=== PATIENT | male | born 1975 | race Caucasian/White ===

== ENCOUNTER 2017-07-29 18:40 | Inpatient (IN) | payer MEDICAID, SELFPAY ==
[2017-07-29 18:41] VITALS: BP 149/91; PULSE 86; RESP 16; TEMP 37.2; O2SAT 99; BMI 22.8
[2017-07-29 21:19] VITALS: BP 133/78; PULSE 92; RESP 20; O2SAT 97
--- NOTE | 2017-07-29 22:07 | ED.VISSUMM ---
- ER Visit Summary Date of Service: 07/29/17 Chief Complaint: Presents for detox from alcohol History of Present Illness: The patient is a 41 M who has history of alcohol use for 20 years. He drinks between 18-24 cans of beer a day. He was having shakes and had several beers prior to presentation. He denies fever, chills night sweats. He denies any ocular, visual or auditory symptoms. He denies chest pain, palpitations, shortness of breath, dyspnea on exertion. He denies hematemesis, melena hematochezia. He denies dysuria, frequency, urgency or hematuria. Denies any skin lesions. He denies bruising easily. Please read written note for complete detail Physical Examination: Blood pressure 149/91, temperature 98, heart rate 86, respiratory rate 16 and pulse ox 96%. Head is atraumatic normocephalic. Pupils are equal round reactive. Extraocular muscles are intact. TMs are pearly white with landmarks noted. Nares patent with no drainage. Posterior pharynx without erythema or exudate. Uvula is midline. There is no dysphonia or dysphasia. Trachea is midline. There is no stridor with auscultation of the neck. Heart is regular without murmur, gallop or rub. S1 and S2 are normal. Lungs are clear to auscultation with good movement of air bilaterally. Abdomen is soft and nontender. There is no guarding or peritoneal findings. There is no palpable pulsatile mass. There is no abdominal bruit. Carreno sign is negative. Negative Rovsing sign. There is no evidence of inguinal or umbilical hernia. Patient is alert and oriented ?3. Motor is 5 over 5. Sensory is intact. DTRs are symmetric with no clonus or Babinski sign. Cranial 2 through 12 are intact. Cerebellar testing is normal. Test Results: Initially no tests were ordered. Since patient is going through withdrawal require admission appropriate blood work was ordered and results will be followed by Dr. Derek Godfrey. Emergency Department Course and Treatment: Patient was told he does not meet criteria for admission. He was given option of going home and return if he has symptoms or stay and be reevaluated. He was reevaluated 2 and half hours later. He is tachycardic diaphoretic hyperreflexic. Blood work was obtained for admission and he was given 50 mg of Librium p.o. Treatment Plan: Admit [facility] for detox Disposition: Admit for alcohol withdrawal Impression: Alcohol withdrawal This note was generated with [employer] dictation software. It may contain incorrect words, spelling, and punctuation that were not noted in review of the chart prior to signing ED Disposition - Plan for ED Patient: Chief Complaint: Subst Abuse Referrals: Care Physician,No Primary [Primary Care Provider] -
[2017-07-29] MEDS: chlordiazePOXIDE 25 MG Capsule 50 MG PO (22:21)
[2017-07-29 22:32] LABS: Basophil# 0.01 X10^3/uL; Basophil% 0.2 % (0-1); Eosinophil# 0.05 X10^3/uL; Hemoglobin 14.7 g/dl (13.0-16.5); Lymphocyte % 27.5 % (19-41); Mean Corpuscular Volume 97.2 fL (80-94); Mean Platelet Vol. 9.3 fl (6.2-12.0); Monocyte# 0.61 X10^3/uL; Neutrophil # 3.02 X10^3/uL (2.7-7.7); Neutrophil % 59.1 % (47-70); POSITIVE COUNT NO; POSITIVE DIFFERENTIAL NO; POSITIVE MORPHOLOGY NO; Platelet Count 170 K/mm3 (150-450); RBC Distribution Width SD 46.4 fl (35.1-43.9); Red Blood Count 4.32 M/mm3 (4.6-6.2); White Blood Count 5.1 K/mm3 (4.4-11.0)
[2017-07-29] MEDS: LORazepam 2 MG/ML Syringe 1 MG IV (22:33)
[2017-07-29 22:36] LABS: Prothrombin Time (Protime)PT. 13.1 SECONDS (11.7-14.9)
[2017-07-29 22:47] VITALS: BP 114/84; PULSE 84; RESP 20; O2SAT 98
--- NOTE | 2017-07-29 22:52 | HP.PCM_ITS ---
Problem List (1) Alcohol abuse Status: Acute (2) Alcohol withdrawal Status: Acute (3) Tobacco abuse Status: Chronic History of Present Illness Date of Admission: 07/29/17 Chief Complaint: alcohol withdrawal The patient is a 41 year old male with a 15-20 year history of drinking 20-30 beers daily. He states he is tired of it and wants to quit. He states he has counseling in [place] set up for him once he gets through detoxification. [facility] was aware of his arrival to our facility. His last beer was at 6:00 pm. His last attempt at cessation was unsuccessful after a week or so. No chest pain or shortness of breath. No other complaints. Past Medical History Past Medical History (Chronic Problems): Chronic Problems Tobacco abuse (Chronic) Allergies No Known Allergies Allergy (Verified 07/29/17 18:41) Home Medications: Ambulatory Orders Medication Instructions Recorded NK [NK] 07/29/17 Smoking Status: Current every day smoker - *Family History Maternal History Items: No pertinent history Review of Systems Constitutional: Denies: Chills, Fever, Weight Change HEENT: Denies: Head Aches, Sinus Congestion, Sinus Drainage Cardiovascular: Denies: Chest Pain, Palpitations Respiratory: Denies: Cough, Shortness of breath at rest, Sputum production Gastrointestinal: Denies: Abdominal Pain, Nausea, Vomiting Genitourinary: Denies: Dysuria Musculoskeletal: Denies: Joint Pain, Joint Tenderness Skin: Denies: Rash, Wounds Neurological: Denies: Numbness, Tingling, Focal weakness Psychiatric: Reports: Anxiety. Denies: Depression, Homicidal Ideations, Suicidal Ideations Hematologic/ Lymphatic: Denies: Easy Bruising, Easy Bleeding VTE Information - Inpt Only VTE Present on Admission: No VTE Mechan Device Prophylaxis: SCD's VTE Pharm Prophylaxis ordered?: No Patient Problems: Active and Suspected Problems Alcohol abuse (Acute) Alcohol withdrawal (Acute) - Physical Exam General: Alert, Oriented x3, Cooperative HEENT: Atraumatic, PERRLA, Normocephalic Neck: Supple, No JVD, Negative Carotid Bruits Lungs: Clear to auscultation, Normal air movement, No rhonchi, No wheeze, No rales Cardiovascular: Regular rate, Normal S1, Normal S2, No murmurs, Tachycardic Abdomen: Bowel Sounds Present, Soft, Non Tender Extremities: No edema, Capillary Refill Less than 3 Seconds Skin: No rashes, No breakdown Musculoskeletal: No Tenderness to Palpation of Joints or Extremities Neurological: Neuro grossly intact Psych/Mental Status: Anxious, Restless Vital Signs Temp Pulse Resp BP Pulse Ox 98.9 F 92 20 H 133/78 H 97 07/29/17 18:41 07/29/17 21:19 07/29/17 21:19 07/29/17 21:19 07/29/17 21:19 Oxygen Delivery Method Room Air Weight: 150 lb Body Mass Index (BMI) 22.8 Laboratory Tests Past 24 Hrs 07/29/17 07/29/17 07/29/17 22:15 22:15 22:15 WBC 5.1 RBC 4.32 L Hgb 14.7 Hct 42.0 MCV 97.2 H MCH 34.0 H MCHC 35.0 RDW 13.0 RDW Differential 46.4 H Plt Count 170 MPV 9.3 Immature Gran % (Auto) 0.200 Neut % (Auto) 59.1 Lymph % (Auto) 27.5 Winkler % (Auto) 12.0 H Eos % (Auto) 1.0 Baso % (Auto) 0.2 Absolute Neuts (auto) 3.0 Absolute Lymphs (auto) 1.40 Total Counted Not Reportable PT 13.1 INR 1.0 Sodium Pending Potassium Pending Chloride Pending Carbon Dioxide Pending Anion Gap Pending BUN Pending Creatinine Pending Est GFR (MDRD) Af Amer Pending Est GFR (MDRD) Non-Af Pending BUN/Creatinine Ratio Pending Glucose Pending Calcium Pending Total Bilirubin Pending AST Pending ALT Pending Alkaline Phosphatase Pending Total Protein Pending Albumin Pending Assessment/Plan Active and Suspected Problems Alcohol abuse (Acute) Alcohol withdrawal (Acute) Plan - admit and consult to [facility] - add CIWA protocol - scds for DVT prophylaxis - add nicoderm patch for tobacco cessation - >15 minutes discussing his motivation for success with alcohol cessation. Code Visit Inpatient E&M: 12020 Init Hosp L2
[2017-07-29 22:55] LABS: AST(SGOT) 39 U/L (15-37); Alanine Aminotransfer ALT/SGPT 26 U/L (16-61); Albumin, Serum 3.9 g/dL (3.2-5.0); Alkaline Phosphatase 56 U/L (45-117); Anion Gap 13 (5-15); BUN 6 mg/dL (7-18); BUN/Creat Ratio 7.3 RATIO (10-20); Calcium,Total 8.8 mg/dL (8.5-10.1); Chloride 104 mmol/L (98-107); Creatinine, Serum 0.83 mg/dL (0.70-1.30); EST Glomerular Filtration Rate 110 mL/min (>60); Est Glom Filt Rate - Afr Amer 133 mL/min (>60); Estimated Creatinine Clearance 114.99 ml/min; Globulin 3.9 g/dL (2.2-4.2); Glucose 101 mg/dL (74-106); Potassium 3.7 mmol/L (3.5-5.1); Protein, Total 7.8 g/dL (6.4-8.2); Sodium Level 142 mmol/L (136-145)
[2017-07-29 23:08] VITALS: BP 109/73; PULSE 87; RESP 18; O2SAT 94
[2017-07-29 23:24] VITALS: BP 129/87; PULSE 76; RESP 20; TEMP 36.7; O2SAT 97
[2017-07-29 23:29] VITALS: BMI 22.8
[2017-07-29 23:33] VITALS: BMI 22.8
[2017-07-29] MEDS: QUEtiapine 25 MG Tablet PO (23:46)
[2017-07-30] VITALS (10 sets, daily range): BP systolic 113–123; BP diastolic 71–81; PULSE 51–82; RESP 16–18; TEMP 36.3–36.8; O2SAT 94–98
[2017-07-30] MEDS: cloNIDine HCl 0.1 MG Tablet PO ×5 (02:15→18:00)
[2017-07-30] MEDS: Folic Acid 1 MG Tablet PO (09:06)
[2017-07-30] MEDS: LORazepam 1 MG Tablet 2 MG PO (09:09)
[2017-07-30] MEDS: Thiamine Hydrochloride 100 MG Tablet PO ×2 (09:11→18:00)
[2017-07-30] MEDS: QUEtiapine 25 MG Tablet PO ×2 (10:41→21:54)
[2017-07-30] MEDS: chlordiazePOXIDE 25 MG Capsule 50 MG PO ×2 (12:17→18:02)
--- NOTE | 2017-07-30 15:29 | PCM.PROGNOTE ---
Patient Problems: Active and Suspected Problems Alcohol abuse (Acute) Alcohol withdrawal (Acute) Subjective: Patient was seen and examined today, I placed him on a tapering Librium dose today, he states he feels better today. - Physical Exam General: Alert, Oriented x3, Cooperative, No apparent distress, Well developed, Well nourished HEENT: Atraumatic, PERRLA, EOMI, Normocephalic Oral: Moist Mucosa Neck: Supple, No JVD, Negative Carotid Bruits, Trachea Midline, Thyroid Normal Size and Texture Lungs: Clear to auscultation, Normal air movement, No rhonchi, No wheeze, No rales Cardiovascular: Regular rate, Regular Rhythm, Normal S1, Normal S2, No murmurs, No Ectopic Activity, PMI Normal, No rub noted, No Gallop Abdomen: Bowel Sounds Present, Soft, Non Tender, Non-Distended, No hernias noted Extremities: No clubbing, No cyanosis, No edema, Capillary Refill Less than 3 Seconds Skin: No rashes, No breakdown Musculoskeletal: No Tenderness to Palpation of Joints or Extremities, No Muscle Wasting Neurological: Cranial nerves II-XII grossly intact, Neuro grossly intact, Muscle tone normal, Sensory exam intact to light touch and pain Psych/Mental Status: Normal Affect, Appropriate, Alert and oriented to time, place, person, mood and affect Vital Signs Temp Pulse Resp BP Pulse Ox 97.3 F L 76 18 113/71 96 07/30/17 14:00 07/30/17 14:00 07/30/17 14:00 07/30/17 14:00 07/30/17 13:58 Oxygen Delivery Method Room Air Weight: 68 kg Body Mass Index (BMI) 22.8 Intake and Output for Last 24 Hours 07/28/17 07/29/17 07/30/17 23:59 23:59 23:59 Intake Total 880 / 880 Balance 880 / 880 Medical Necessity - Tobacco Use Smoking Status: Current every day smoker Assessment/Plan Active and Suspected Problems Alcohol abuse (Acute) Alcohol withdrawal (Acute) #1 acute alcohol withdrawal-continue present meds #2 alcoholism Code Visit Inpatient E&M: 89235 Subs Hosp L2
--- NOTE | 2017-07-30 16:13 | CHAPLAIN ---
Type of Pastoral Visit _x__ Initial Visit ___ Follow-up Visit ___ On-call Visit ___ General Patient Visit ___ Spiritual Assessment ___ Family Conference ___ Bereavement ___ Rapid Response ___ Code Blue ___ Other (describe below) Pastoral Care Referral From ___ Patient ___ Family ___ Nurse ___ Physician ___ Banking Paralegal ___ Cosmetics Demonstrator _x__ Other (describe below) Sacrament/Intervention ___ Active listening ___ Anointing ___ Anglican ___ Bereavement ___ Communion ___ Martha exploration ___ ___ Life review ___ Prayer ___ Reconciliation ___ Sacrament of Sick _x__ Supportive presence ___ Wedding ___ Other (describe below) Pastoral Comments brief introduction to patient for spiritual support services; pt would prefer a return visit at another time; pt said that he has affiliation with a local voodoo through his mother
[2017-07-30] MEDS: Dicyclomine 10 MG Capsule 20 MG PO (18:02)
[2017-07-31] VITALS (10 sets, daily range): BP systolic 104–127; BP diastolic 62–82; PULSE 48–66; RESP 16–18; TEMP 36.4–36.8; O2SAT 95–99
[2017-07-31] MEDS: chlordiazePOXIDE 25 MG Capsule 50 MG PO ×4 (01:09→22:31)
[2017-07-31] MEDS: Folic Acid 1 MG Tablet PO (08:28)
[2017-07-31] MEDS: Thiamine Hydrochloride 100 MG Tablet PO ×2 (08:28→17:13)
--- NOTE | 2017-07-31 15:49 | CHAPLAIN ---
Type of Pastoral Visit ___ Initial Visit _x__ Follow-up Visit ___ On-call Visit ___ General Patient Visit ___ Spiritual Assessment ___ Family Conference ___ Bereavement ___ Rapid Response ___ Code Blue ___ Other (describe below) Pastoral Care Referral From _x__ Patient ___ Family ___ Nurse ___ Physician ___ Crane Helper ___ Pathology Collector ___ Other (describe below) Sacrament/Intervention _x__ Active listening ___ Anointing ___ Episcopal ___ Bereavement ___ Communion _x__ Martha exploration ___ _x__ Life review _x__ Prayer ___ Reconciliation ___ Sacrament of Sick _x__ Supportive presence ___ Wedding ___ Other (describe below) Pastoral Comments patient was anticipating this return visit from rough rib grader and began to talk about his life; pt says that he is having difficulty staying occupied in a lonely closed in room; pt eager to have a visitor; pt admits anxiety at going out again to his environment because alcohol is everywhere and I am used to drinking 30 beers a day; pt says his best source of help is keeping busy and working; 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
--- NOTE | 2017-07-31 16:55 | PCM.PROGNOTE ---
Patient Problems: Active and Suspected Problems Alcohol abuse (Acute) Alcohol withdrawal (Acute) Subjective: Patient seen and examined today, he has no complaints of any tremors or severe anxiety today. - Physical Exam General: Alert, Oriented x3, Cooperative, No apparent distress HEENT: Atraumatic, PERRLA, EOMI, Normocephalic Oral: Moist Mucosa Neck: Supple, No JVD, Trachea Midline, Thyroid Normal Size and Texture Lungs: Clear to auscultation, Normal air movement, No rhonchi, No wheeze, No rales Cardiovascular: Regular rate, Regular Rhythm, Normal S1, Normal S2, No murmurs, No Ectopic Activity, PMI Normal, No rub noted, No Gallop Abdomen: Bowel Sounds Present, Soft, Non Tender, Non-Distended Extremities: No clubbing, No cyanosis, No edema, Capillary Refill Less than 3 Seconds Skin: No rashes, No breakdown Musculoskeletal: No Tenderness to Palpation of Joints or Extremities Neurological: Cranial nerves II-XII grossly intact, Neuro grossly intact, Sensory exam intact to light touch and pain, Coordination normal Psych/Mental Status: Normal Affect, Appropriate, Alert and oriented to time, place, person, mood and affect Vital Signs Temp Pulse Resp BP Pulse Ox 98.2 F 62 16 112/69 96 07/31/17 13:58 07/31/17 13:58 07/31/17 13:58 07/31/17 13:58 07/31/17 13:58 Oxygen Delivery Method Room Air Weight: 68 kg Body Mass Index (BMI) 22.8 Intake and Output for Last 24 Hours 07/29/17 07/30/17 07/31/17 23:59 23:59 23:59 Intake Total 1220 / 1220 360 / 360 Balance 1220 / 1220 360 / 360 Medical Necessity - Tobacco Use Smoking Status: Current every day smoker Assessment/Plan Active and Suspected Problems Alcohol abuse (Acute) Alcohol withdrawal (Acute) #1 acute alcohol withdrawal-continue present meds, patient remains medically stable #2 alcoholism Code Visit Inpatient E&M: 03334 Subs Hosp L2
[2017-07-31] MEDS: cloNIDine HCl 0.1 MG Tablet PO (22:31)
[2017-07-31] MEDS: QUEtiapine 25 MG Tablet PO (22:32)
[2017-08-01 02:00] VITALS: BP 115/78; PULSE 54; RESP 18; TEMP 36.6; O2SAT 99
[2017-08-01 06:00] VITALS: BP 114/68; PULSE 57; RESP 16; TEMP 36.5; O2SAT 99
[2017-08-01] MEDS: chlordiazePOXIDE 25 MG Capsule 50 MG PO (06:34)
[2017-08-01 08:26] VITALS: BP 111/75; PULSE 59; RESP 16; TEMP 36.7; O2SAT 100
[2017-08-01 08:30] VITALS: BP 111/75; PULSE 60; RESP 16; TEMP 36.7
[2017-08-01] MEDS: Folic Acid 1 MG Tablet PO (08:38)
[2017-08-01] MEDS: Thiamine Hydrochloride 100 MG Tablet PO (08:38)
--- NOTE | 2017-08-01 08:53 | PCM.DC ---
- Discharge Diagnoses Current Active Problems: Current Active and Chronic Problems Alcohol abuse (Acute) Alcohol withdrawal (Acute) Tobacco abuse (Chronic) You will use the following diet at home:: No restrictions Your food should be the consistency of: Regular Your liquids should be the consistency of: Regular/Thin Discharge Activity: Return to Normal Activity Weight Bearing Status: Full weight bearing Allergies/Adverse Reactions: Allergies No Known Allergies Allergy (Verified 07/29/17 18:41) Medications to take at Discharge NK [NK] 07/29/17 Primary Care Physician: Care Physician,No Primary [Primary Care Provider] -
--- NOTE | 2017-08-01 16:02 | PCM.DC.SUM ---
Discharge Date and Diagnosis Date of Admission: 07/29/17 Date of Discharge: 08/01/17 - Primary Discharge Diagnosis #1 acute alcohol withdrawal #2 alcoholism - Secondary Discharge Diagnosis Chronic Problems Tobacco abuse (Chronic) Hospital Course and Treatment Operations: None Procedures: None Summary of Care Provided: The patient is a 41 year old M who was seen in the emergency room at [facility] with a chief complaint of wishing to detox from alcohol. Patient had an alcohol use history for 20 years between 18-24 cans of beer per day. Physical examination revealed him to be anxious and tremorous, no admission labs were drawn in the emergency room. Medical stabilization program at [facility] was contacted for approval for admission to the program, this was granted and the patient was admitted into the medical stabilization program at [facility] on [facility]. Orders were entered using the medical stabilization order set, patient had no major complications during his hospitalization. On 08/01/17, patient was seen and examined and felt to be in stable condition for discharge home Discharge Activity: Return to Normal Activity Weight Bearing Status: Full weight bearing Home Medications: Medications to take at Discharge NK [NK] 07/29/17 Primary Care Physician: Care Physician,No Primary [Primary Care Provider] - Disposition: Home Minutes spent on discharge:: 32 Patient Condition:: Stable Medical Necessity - Tobacco Use Smoking Status: Current every day smoker Meaningful Use Info Meaningful Use Diagnoses (Choose all that apply): None applicable Code Visit Inpatient E&M: 06822 Disch Hosp
--- NOTE | 2017-08-01 16:06 | DS.PCM_ITS ---
Discharge Date and Diagnosis Date of Admission: 07/29/17 Date of Discharge: 08/01/17 - Primary Discharge Diagnosis #1 acute alcohol withdrawal #2 alcoholism - Secondary Discharge Diagnosis Chronic Problems Tobacco abuse (Chronic) Hospital Course and Treatment Operations: None Procedures: None Summary of Care Provided: The patient is a 41 year old M who was seen in the emergency room at [facility] with a chief complaint of wishing to detox from alcohol. Patient had an alcohol use history for 20 years between 18-24 cans of beer per day. Physical examination revealed him to be anxious and tremorous, no admission labs were drawn in the emergency room. Medical stabilization program at [facility] was contacted for approval for admission to the program, this was granted and the patient was admitted into the medical stabilization program at [facility] on [facility]. Orders were entered using the medical stabilization order set, patient had no major complications during his hospitalization. On 08/01/17, patient was seen and examined and felt to be in stable condition for discharge home Discharge Activity: Return to Normal Activity Weight Bearing Status: Full weight bearing Home Medications: Medications to take at Discharge NK [NK] 07/29/17 Primary Care Physician: Care Physician,No Primary [Primary Care Provider] - Disposition: Home Minutes spent on discharge:: 32 Patient Condition:: Stable Medical Necessity - Tobacco Use Smoking Status: Current every day smoker Meaningful Use Info Meaningful Use Diagnoses (Choose all that apply): None applicable Code Visit Inpatient E&M: 40364 Disch Hosp
== END 2017-08-01 09:51 | disposition home or self-care (01) | DRG 435 ==
LOC: ED 19:12 → MS2 22:59
PROVIDERS: Admitting Provider Family Medicine; Emergency Provider Emergency Medicine; Visit Provider Internal Medicine
DX: F10.239 Alcohol dependence with withdrawal, unspecified (principal); Y90.9 Presence of alcohol in blood, level not specified; F17.200 Nicotine dependence, unspecified, uncomplicated
CPT/HCPCS: 80053; 85025; 85610; 97802; 99284; 99406; A4216

== ENCOUNTER 2017-12-26 17:58 | Emergency (ER) | payer MEDICAID, SELFPAY ==
[2017-12-26 17:59] VITALS: BP 139/89; PULSE 77; RESP 16; TEMP 36.6; O2SAT 95; BMI 22.3
[2017-12-26 18:26] VITALS: BP 122/90; PULSE 79; RESP 18; O2SAT 100
[2017-12-26 18:47] LABS: Absolute Lymphocyte Count 1.63 X10^3/ul (0.83-4.51); Absolute Neutrophil Count 2.3 X10^3/uL (2.0-7.7); Basophil# 0.02 X10^3/uL; Basophil% 0.4 % (0-1); Eosinophil# 0.05 X10^3/uL; Eosinophils% 1.1 % (0-5); Hematocrit 44.9 % (40-54); Hemoglobin 15.4 g/dl (13.0-16.5); Lymphocyte # 1.63 X10^3/ul (4.0); Lymphocyte % 34.9 % (19-41); Mean Corp Hgb Conc 34.3 g/gl (32-36); Mean Corpuscular Hgb 32.5 pg (27.0-32.0); Mean Corpuscular Volume 94.7 fL (80-94); Mean Platelet Vol. 9.4 fl (6.2-12.0); Monocyte# 0.69 X10^3/uL; Monocyte% 14.8 % (0-10); Neutrophil # 2.28 X10^3/uL (2.7-7.7); Neutrophil % 48.8 % (47-70); Platelet Count 205 K/mm3 (150-450); RBC Distribution Width CV 13.4 % (11.6-14.6); RBC Distribution Width SD 46.8 fl (35.1-43.9); Red Blood Count 4.74 M/mm3 (4.6-6.2); White Blood Count 4.7 K/mm3 (4.4-11.0)
[2017-12-26 18:49] LABS: POSITIVE COUNT NO; POSITIVE DIFFERENTIAL NO; POSITIVE MORPHOLOGY NO
[2017-12-26 18:52] LABS: International Normalized Ratio 0.9; Prothrombin Time (Protime)PT. 12.3 SECONDS (11.7-14.9)
[2017-12-26 19:02] LABS: ALB/GLOB Ratio 1.1 RATIO (0.9-2.4); AST(SGOT) 44 U/L (15-37); Alanine Aminotransfer ALT/SGPT 41 U/L (16-61); Albumin, Serum 4.3 g/dL (3.2-5.0); Alkaline Phosphatase 63 U/L (45-117); Anion Gap 8 (5-15); BUN 6 mg/dL (7-18); Calcium,Total 8.6 mg/dL (8.5-10.1); Chloride 105 mmol/L (98-107); Creatinine, Serum 0.86 mg/dL (0.70-1.30); EST Glomerular Filtration Rate 105 mL/min (>60); Est Glom Filt Rate - Afr Amer 127 mL/min (>60); Globulin 3.9 g/dL (2.2-4.2); Glucose 83 mg/dL (74-106); Potassium 4.1 mmol/L (3.5-5.1); Protein, Total 8.2 g/dL (6.4-8.2); Sodium Level 142 mmol/L (136-145)
--- NOTE | 2017-12-26 19:25 | ED.RN ---
DR GOMEZ NOTIFIED OF ALCOHOL LEVEL
[2017-12-26 20:07] VITALS: BP 129/78; PULSE 87; RESP 16; O2SAT 98
--- NOTE | 2017-12-26 20:25 | ED.VISSUMM ---
- ER Visit Summary Date of Service: 12/26/17 Chief Complaint: Sent to emergency room for medical clearance by Colten louie from who spoke to Sai from [facility]. History of Present Illness: The patient is a 42 M who presents for medical clearance for inpatient detox. He informed me that D and would admit him. Female records management analyst who accompanied patient to the emergency room confirms he was sent for admission by Sai from [facility] [employer]. Patient states he drinks 30 beers a day. Patient denies headache. He denies visual, ocular auditory symptoms. Denies trouble with speech or swallowing. He denies cardiac or respiratory symptoms. He reports intermittent abdominal pain with nausea. He denies any recent black or maroon stool. He denies hematemesis. He denies any change in the color of his urine or stool. He denies bruising easily. He does admit to smoking. Physical Examination: Patient is clinically intoxicated. Vital signs were noted and blood pressure is slightly elevated 129/79. Head is atraumatic normocephalic. Pupils are equal round reactive. Extraocular muscles are intact. TMs are pearly white with landmarks noted. Nares patent with no drainage. Posterior pharynx without erythema or exudate. Uvula is midline. There is no dysphonia or dysphasia. Trachea is midline. There is no stridor with auscultation of the neck. Heart is regular without murmur, gallop or rub. S1 and S2 are normal. Lungs are clear to auscultation with good movement of air bilaterally. Abdomen is soft and nontender. There is no guarding or peritoneal findings. There is no palpable pulsatile mass. There is no abdominal bruit. Carreno sign is negative. Negative Rovsing sign. There is no evidence of inguinal or umbilical hernia. Alert and oriented x3. Motor sensory intact. Finger-nose to finger performed adequately. DTRs symmetric with no clonus or Babinski sign. Test Results: CBC is unremarkable. Electrolyte panel is unremarkable. Liver panel reveals elevated ALT and AST of 44 and 41. INR is 0.9. Alcohol is elevated at 303. Emergency Department Course and Treatment: Patient was screened medically because of the consumption with history of cirrhosis to evaluate for endorgan dysfunction i.e. coagulopathy. Because he reported black stool 1 month ago CBC was obtained. Liver profile was obtained as well. Clinically patient does not have symptoms of withdrawal. Treatment Plan: Since patient is intoxicated is not having symptoms of withdrawal and there is no medical reason for admission, he will be discharged with records management analyst to follow-up with Sai morning Disposition: Discharged to home with records management analyst Impression: Acute alcohol intoxication with history of alcoholism This note was generated with [employer] dictation software. It may contain incorrect words, spelling, and punctuation that were not noted in review of the chart prior to signing ED Disposition - Plan for ED Patient: Disposition: Home or Assisted Living Chief Complaint: Substance Abuse Instructions: ED Alcohol Abuse Referrals: Care Physician,No Primary [Primary Care Provider] - Additional Instructions: Presently you do not meet criteria for admission to the hospital. Recommend contacting DM from [facility] in the morning for reevaluation.
--- NOTE | 2017-12-26 21:20 | ED.RN ---
ENTERED ROOM TO DISCHARGE PT, PT NOT IN ROOM AND NOT IN DEPARTMENT. IV FOUND IN TRASH THAT PT REMOVED PRIOR TO LEAVING.
== END 2017-12-26 21:22 | disposition home or self-care (01) ==
PROVIDERS: Emergency Provider Emergency Medicine
DX: F10.229 Alcohol dependence with intoxication, unspecified (principal); T51.0X1A Toxic effect of ethanol, accidental (unintentional), initial encounter; K70.30 Alcoholic cirrhosis of liver without ascites; Y90.8 Blood alcohol level of 240 mg/100 ml or more; F19.90 Other psychoactive substance use, unspecified, uncomplicated; F17.200 Nicotine dependence, unspecified, uncomplicated
CPT/HCPCS: 80053; 80320; 85025; 85610; 99284; A4216; G0480

== ENCOUNTER 2018-02-01 22:15 | Inpatient (IN) | payer MEDICAID, SELFPAY ==
--- NOTE | 2018-02-01 | RAD_ITS ---
HISTORY: PATIENT COMES TO ER STATING HE IS IN WITHDRAWL FROM ALCOHOL. SUICIDAL DUE TO RINGING IN EARS. HIGH HEART RATE, 121. EXAM: XR Chest 2 Views: COMPARISON: None FINDINGS: EKG leads in place. Normal heart size. No mediastinal widening. No vascular congestion, pleural effusion, or pulmonary infiltration. No pneumothorax. Intact bony thorax. IMPRESSION: Normal chest. at 0020 Reported and signed by: Mele Correia MD Electronically Signed: Mele Correia, at 0:18 EST Tel , Service support , RAD/Chest PA and Lateral
[2018-02-01 22:17] VITALS: BP 145/94; PULSE 121; RESP 18; TEMP 36; O2SAT 97; BMI 23.6
[2018-02-01 23:33] LABS: Absolute Lymphocyte Count 1.78 X10^3/ul (0.83-4.51); Absolute Neutrophil Count 1.9 X10^3/uL (2.0-7.7); Basophil# 0.03 X10^3/uL; Basophil% 0.7 % (0-1); Eosinophil# 0.07 X10^3/uL; Eosinophils% 1.5 % (0-5); Hematocrit 41.1 % (40-54); Hemoglobin 14.6 g/dl (13.0-16.5); Lymphocyte # 1.78 X10^3/ul (4.0); Lymphocyte % 38.9 % (19-41); Mean Corp Hgb Conc 35.5 g/gl (32-36); Mean Corpuscular Hgb 33.1 pg (27.0-32.0); Mean Corpuscular Volume 93.2 fL (80-94); Mean Platelet Vol. 9.9 fl (6.2-12.0); Monocyte# 0.76 X10^3/uL; Monocyte% 16.6 % (0-10); Neutrophil # 1.94 X10^3/uL (2.7-7.7); Neutrophil % 42.3 % (47-70); Platelet Count 139 K/mm3 (150-450); RBC Distribution Width SD 43.6 fl (35.1-43.9); Red Blood Count 4.41 M/mm3 (4.6-6.2); White Blood Count 4.6 K/mm3 (4.4-11.0)
[2018-02-01 23:34] LABS: Mucous, Urine 0 SEEN /hpf (<or=2+); Red Blood Cells-Urine 0 SEEN /hpf (0-5); White Blood Cells 0 SEEN /hpf (0-5)
[2018-02-01 23:36] LABS: POSITIVE COUNT NO; POSITIVE DIFFERENTIAL NO; POSITIVE MORPHOLOGY NO
[2018-02-01 23:39] LABS: Color, Urine Yellow (Yellow); Glucose, Dipstick Normal (Normal); Ketone-Dipstick Negative (Negative); Leukocyte Esterase-Dipstick Negative /ul (Negative); Nitrite-Dipstick Negative (Negative); Occult Blood-Urine Negative /ul (Negative); Protein-Dipstick Negative (Negative); Urine Bilirubin Dipstick Negative (Negative); Urine Clarity Clear (Clear); Urine Urobilinogen Normal (Normal); Urine pH 6.5 (5.0 - 8.0)
[2018-02-01 23:54] LABS: Bacteria RARE /hpf (None Seen)
[2018-02-01 23:55] LABS: Squamous Epithelial Cells - UA 0-5 SEEN /hpf (0-5)
[2018-02-02] VITALS (13 sets, daily range): BP systolic 127–163; BP diastolic 77–93; PULSE 63–107; RESP 16–18; TEMP 36.7–37.3; O2SAT 92–100; BMI 21.7; BMI 21.8
[2018-02-02] LABS: ALB/GLOB Ratio 1.1 RATIO (0.9-2.4); AST(SGOT) 80 U/L (15-37); Alanine Aminotransfer ALT/SGPT 67 U/L (16-61); Albumin, Serum 4.1 g/dL (3.2-5.0); Alkaline Phosphatase 64 U/L (45-117); Amphetamine Urine VISTA NEGATIVE (<1000 ng/mL); Anion Gap 7 (5-15); BUN 8 mg/dL (7-18); BUN/Creat Ratio 9.3 RATIO (10-20); Barbiturate Urine VISTA NEGATIVE (< 200 ng/mL); Benzodiazepine Urine VISTA NEGATIVE (< 200 ng/mL); Calcium,Total 8.3 mg/dL (8.5-10.1); Chloride 108 mmol/L (98-107); Cocaine Urine VISTA NEGATIVE (< 300 ng/mL); Creatinine, Serum 0.86 mg/dL (0.70-1.30); EST Glomerular Filtration Rate 105 mL/min (>60); Ecstacy Urine VISTA NEGATIVE (< 500 ng/mL); Est Glom Filt Rate - Afr Amer 127 mL/min (>60); Estimated Creatinine Clearance 110.47 ml/min; Globulin 3.6 g/dL (2.2-4.2); Glucose 105 mg/dL (74-106); Methadone Urine VISTA NEGATIVE (< 300 ng/mL); PCP Urine VISTA NEGATIVE (< 25 ng/mL); Potassium 3.8 mmol/L (3.5-5.1); Protein, Total 7.7 g/dL (6.4-8.2); Sodium Level 144 mmol/L (136-145); THC Urine VISTA NEGATIVE (< 50 ng/mL); Vista UDS pH Range 7
--- NOTE | 2018-02-02 00:37 | ED.RN ---
DR SHELL NOTIFIED OF ALCOHOL LEVEL
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
[2018-02-02] MEDS: chlordiazePOXIDE 25 MG Capsule 50 MG PO (04:07)
[2018-02-02] MEDS: 0.9% NaCl Peripheral Flush Adult/Peds IV ×3 (04:49→11:48)
[2018-02-02] MEDS: Ondansetron 4 MG/2 ML Vial IV (04:50)
[2018-02-02 06:08] LABS: Prothrombin Time (Protime)PT. 13.2 SECONDS (11.7-14.9)
[2018-02-02 06:28] LABS: Anion Gap 13 (5-15); BUN 6 mg/dL (7-18); Calcium,Total 8.2 mg/dL (8.5-10.1); Chloride 102 mmol/L (98-107); Creatinine, Serum 0.86 mg/dL (0.70-1.30); EST Glomerular Filtration Rate 105 mL/min (>60); Est Glom Filt Rate - Afr Amer 127 mL/min (>60); Estimated Creatinine Clearance 104.98 ml/min; Glucose 100 mg/dL (74-106); Potassium 3.7 mmol/L (3.5-5.1); Sodium Level 142 mmol/L (136-145)
[2018-02-02] MEDS: Multivitamins,Therapeutic Tablet 1 TABLET PO (08:31)
[2018-02-02] MEDS: Folic Acid 1 MG Tablet PO (08:31)
[2018-02-02] MEDS: Thiamine Hydrochloride 100 MG Tablet PO (08:31)
--- NOTE | 2018-02-02 10:16 | PCM.PN.BLA ---
Progress Note This is a 42 years old male patient admitted because of alcohol intoxication and impending alcohol withdrawal. Patient seen and examined this morning. He started complaining of shakiness and restlessness. He is alert and oriented x3. He did went through withdrawal symptoms in the past. He mentioned that his last drink was yesterday noon. He is a heavy drinker. This morning, he denied any suicidal ideations. At this time, his vital signs are stable. On examination: Patient is alert, oriented x3, shaky, tremors of both hands, restless. Heart: S1-S2 normal, no murmur, no tachycardia. Chest: Clear to auscultation. Abdomen: Soft, nontender. Assessment and plan: Alcohol intoxication/impending alcohol withdrawal: Initiate CIWA protocol, Ativan as needed per protocol, continue folic acid and thiamine, close monitoring, cardiac monitoring.
[2018-02-02] MEDS: LORazepam 2 MG/ML Syringe IV (11:47)
[2018-02-02] MEDS: LORazepam 1 MG Tablet 2 MG PO ×2 (14:55→21:48)
--- NOTE | 2018-02-02 17:03 | SUR.OPER ---
pt sleeping sitting with pt
[2018-02-03] VITALS (8 sets, daily range): BP systolic 107–132; BP diastolic 78–93; PULSE 71–119; RESP 16; TEMP 36.3–36.9; O2SAT 97
[2018-02-03] MEDS: LORazepam 1 MG Tablet 2 MG PO ×3 (02:06→14:18)
[2018-02-03] MEDS: Thiamine Hydrochloride 100 MG Tablet PO (08:42)
[2018-02-03] MEDS: Multivitamins,Therapeutic Tablet 1 TABLET PO (08:42)
[2018-02-03] MEDS: Folic Acid 1 MG Tablet PO (08:43)
--- NOTE | 2018-02-03 08:49 | PCM.PN.HOSP ---
Patient Problems: Active and Suspected Problems (Last Updated 02/02/18 @ 04:16 by Daniel Colón MD) Alcohol dependence with withdrawal (Acute) Suicidal ideation (Acute) Subjective: Patient is a 42-year-old gentleman admitted with acute alcohol intoxication as well as suicidal ideation Objective: GENERAL: cooperative HEENT: Atraumatic; EYES; Anicteric, Normal Conjunctiva NECK; supple, normal thyroid, no distended JVD. RESPIRATORY: Diminished to auscultation bilaterally, CARDIOVASCULAR: Regular S1 S2, no audible murmurs GI: soft, non-tender, normoactive bowel sounds, : No Renal angle tenderness; EXTREMITIES: No edema, no clubbing, no cyanosis. MUSCULOSKELETAL: No Joint Tenderness; no muscle waisting NEURO: Awake; no lateralizing signs. SKIN: No Rash PSYCH; FLAT affect Vitals/I&O's: Vital Signs Temp Pulse Resp BP Pulse Ox 98.4 F 72 16 107/78 97 02/03/18 01:59 02/03/18 05:07 02/03/18 01:59 02/03/18 01:59 02/03/18 01:59 Oxygen Delivery Method Room Air Weight: 65.005 kg Body Mass Index (BMI) 21.7 Intake and Output for Last 24 Hours 02/01/18 02/02/18 02/03/18 23:59 23:59 23:59 Intake Total 1240 / 1240 460 / 460 Output Total 0 / 0 Balance 1240 / 1240 460 / 460 Laboratory Results 02/03/18 08:05: Ethyl Alcohol Pending Current Medications [facility] Last Admin: 02/03/18 08:43 Dose: 1 mg Lorazepam (Ativan) 2 mg PO Q2H PRN PRN; Protocol PRN Reason: CIWA score > 8 but <15 Last Admin: 02/03/18 02:06 Dose: 2 mg Lorazepam (Ativan) 2 mg PO UD PRN; Protocol PRN Reason: CIWA score >/=15. Lorazepam (Ativan) 2 mg IV Q2H PRN PRN; Protocol PRN Reason: CIWA score > 8 but <15 Last Admin: 02/02/18 11:47 Dose: 2 mg Lorazepam (Ativan) 2 mg IV UD PRN; Protocol PRN Reason: CIWA score >/=15. Magnesium Hydroxide (Milk Of Magnesia) 30 ml PO DAILY PRN PRN PRN Reason: Constipation Multivitamins (Multivitamin) 1 tablet PO DAILYCM [facility] Last Admin: 02/03/18 08:42 Dose: 1 tablet Nicotine (Nicoderm Cq (Pbkc)) 21 mg TRANSDERM. DAILY ALPHONSE Last Admin: 02/03/18 08:42 Dose: 21 mg Ondansetron HCl (Zofran) 4 mg IV Q6H PRN PRN PRN Reason: NAUSEA/VOMITING Last Admin: 02/02/18 04:50 Dose: 4 mg Sodium Chloride () 5 - 30 ml IV UD PRN PRN Reason: SALINE FLUSH Last Admin: 02/02/18 11:48 Dose: 10 ml Thiamine HCl (Vitamin B1) 100 mg PO DAILYCM [facility] Last Admin: 02/03/18 08:42 Dose: 100 mg Medical Necessity - Tobacco Use Smoking Status: Current every day smoker Tobacco Use: Cigarettes Assessment/Plan All Active Problems (Last Updated 02/02/18 @ 04:16 by Daniel Colón MD) Alcohol abuse (Acute) Alcohol withdrawal (Acute) Alcohol dependence with withdrawal (Acute) Suicidal ideation (Acute) Patient is a 42-year-old gentleman admitted with acute alcohol intoxication as well as suicidal ideation 1. Suicidal ideation patient currently has a sitter in his room. Plan is for crisis evaluation pending EtOH levels patient otherwise remains medically stable for evaluation by the crisis team 2. Alcohol dependence. Patient admitted to regular nursing floor on tapering dose of Librium to prevent withdrawal 3. Elevated liver enzymes consistent with chronic alcohol use monitor levels 4. Tobacco dependence counseled on cessation, offered nicotine patch for tobacco cravings 5. DVT prophylaxis low risk did encourage early ambulation Code Visit Inpatient E&M: 51714 Subs Hosp L2
[2018-02-03 08:52] LABS: Alcohol, Blood (Medical)-Serum < 3.0 mg/dL
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
--- NOTE | 2018-02-03 13:18 | PCM.DC ---
- Discharge Diagnoses Current Active Problems: Current Active and Chronic Problems (Last Updated 02/02/18 @ 04:16 by Daniel Colón MD) Alcohol dependence with withdrawal (Acute) Suicidal ideation (Acute) You will use the following diet at home:: No restrictions Allergies/Adverse Reactions: Allergies No Known Allergies Allergy (Verified 12/26/17 17:59) Medications to take at Discharge NK 07/29/17 Primary Care Physician: Care Physician,No Primary [Primary Care Provider] - Test Results: Test results from this visit will be discussed in further detail at your follow-up appointment, if applicable. Proposed Discharge Date: 02/03/18
--- NOTE | 2018-02-03 13:21 | DCINST_ITS ---
- Discharge Diagnoses Current Active Problems: Current Active and Chronic Problems (Last Updated 02/02/18 @ 04:16 by Daniel Colón MD) Alcohol dependence with withdrawal (Acute) Suicidal ideation (Acute) You will use the following diet at home:: No restrictions Allergies/Adverse Reactions: Allergies No Known Allergies Allergy (Verified 12/26/17 17:59) Medications to take at Discharge NK 07/29/17 Primary Care Physician: Care Physician,No Primary [Primary Care Provider] - Test Results: Test results from this visit will be discussed in further detail at your follow- up appointment, if applicable. Proposed Discharge Date: 02/03/18
--- NOTE | 2018-02-03 13:22 | PCM.DC.SUM ---
Discharge Date and Diagnosis - Problem List Patient Problems: Active and Suspected Problems (Last Updated 02/02/18 @ 04:16 by Daniel Colón MD) Alcohol dependence with withdrawal (Acute) Suicidal ideation (Acute) Date of Admission: 02/02/18 Date of Discharge: 02/03/18 - Primary Discharge Diagnosis Active and Suspected Problems (Last Updated 02/02/18 @ 04:16 by Daniel Colón MD) Alcohol dependence with withdrawal (Acute) Suicidal ideation (Acute) - Secondary Discharge Diagnosis Chronic Problems (Last Updated 02/02/18 @ 04:16 by Daniel Colón MD) Tobacco abuse (Chronic) Hospital Course and Treatment Summary of Care Provided: Patient is a 42-year-old gentleman admitted with acute alcohol intoxication as well as suicidal ideation 1. Suicidal ideation patient currently has a sitter in his room. Patient was seen and evaluated by the crisis team. Patient was deemed not to be suicidal was discharged home with subsequent follow-up with his counselor. 2. Alcohol dependence. Patient admitted to regular nursing floor on tapering dose of Librium to prevent withdrawal 3. Elevated liver enzymes consistent with chronic alcohol use monitor levels 4. Tobacco dependence counseled on cessation, offered nicotine patch for tobacco cravings 5. DVT prophylaxis low risk did encourage early ambulation Patient Problems: Active and Suspected Problems (Last Updated 02/02/18 @ 04:16 by Daniel Colón MD) Alcohol dependence with withdrawal (Acute) Suicidal ideation (Acute) - Physical Exam General: Oriented x3 HEENT: Atraumatic Lungs: Clear to auscultation Psych/Mental Status: Flat Affect Vital Signs Temp Pulse Resp BP Pulse Ox 98.0 F 119 H 16 132/93 H 97 02/03/18 08:49 02/03/18 11:01 02/03/18 08:49 02/03/18 08:49 02/03/18 08:49 Oxygen Delivery Method Room Air Weight: 65.005 kg Body Mass Index (BMI) 21.7 Intake and Output for Last 24 Hours 02/01/18 02/02/18 02/03/18 23:59 23:59 23:59 Intake Total 1240 / 1240 460 / 460 Output Total 0 / 0 Balance 1240 / 1240 460 / 460 Laboratory Tests Past 24 Hrs 02/03/18 08:05 Ethyl Alcohol < 3.0 Discharge Diet: No Restrictions Home Medications: Medications to take at Discharge NK 05/14/18 Primary Care Physician: Care Physician,No Primary [Primary Care Provider] - Minutes spent on discharge:: 35 Patient Condition:: Stable Medical Necessity - Tobacco Use Smoking Status: Current every day smoker Tobacco Use: Cigarettes Meaningful Use Info Meaningful Use Diagnoses (Choose all that apply): None applicable Code Visit Inpatient E&M: 52131 Disch Hosp
== END 2018-02-03 16:26 | disposition home or self-care (01) | DRG 775 ==
LOC: ED 23:39 → MS3 02-02 02:40
PROVIDERS: Admitting Provider Hospitalist; Emergency Provider Emergency Medicine; Visit Provider Internal Medicine
DX: F10.229 Alcohol dependence with intoxication, unspecified (principal); R45.851 Suicidal ideations; F10.239 Alcohol dependence with withdrawal, unspecified; Y90.8 Blood alcohol level of 240 mg/100 ml or more; F17.210 Nicotine dependence, cigarettes, uncomplicated; H93.19 Tinnitus, unspecified ear; R74.8 Abnormal levels of other serum enzymes
CPT/HCPCS: 36415; 71046; 80048; 80053; 80307; 80320; 81001; 85025; 85610; 97162; 97166; 97530; 97802; 99283; 99406; A4216; G0480; J2405

== ENCOUNTER 2022-06-14 14:52 | Inpatient (IN) | payer MEDICARE, MEDICAID, SELFPAY ==
[2022-06-14] VITALS (7 sets, daily range): BP systolic 114–135; BP diastolic 83–105; PULSE 88–103; RESP 16–18; TEMP 36.6–36.8; O2SAT 94–98; BMI 20.5; BMI 20.2
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
[2022-06-14 15:39] LABS: Absolute Lymphocyte Count 1.36 X10^3/uL (0.83-4.51); Absolute Neutrophil Count 2.5 X10^3/uL (2.0-7.7); Basophil# 0.05 X10^3/uL; Basophil% 1.1 % (0-1); Eosinophil# 0.06 X10^3/uL; Eosinophils% 1.3 % (0-5); Hematocrit 42.6 % (40-54); Hemoglobin 14.7 g/dL (13.0-16.5); Lymphocyte # 1.36 X10^3/ul (0.83-4.51); Lymphocyte % 30.2 % (19-41); Mean Corp Hgb Conc 34.5 g/dL (32-36); Mean Corpuscular Hgb 32.5 pg (27.0-32.0); Mean Platelet Vol. 9.6 fl (6.2-12.0); Monocyte# 0.55 X10^3/uL; Monocyte% 12.2 % (0-10); NRBC Flagged by Analyzer 0 % (0-5); Neutrophil # 2.47 X10^3/uL (2.7-7.7); Platelet Count 128 K/mm3 (150-450); RBC Distribution Width CV 13.7 % (11.6-14.6); RBC Distribution Width SD 47.7 fl (35.1-43.9); Red Blood Count 4.53 M/mm3 (4.6-6.2); White Blood Count 4.5 K/mm3 (4.4-11.0)
[2022-06-14 15:56] LABS: AST(SGOT) 340 U/L (15-37); Alanine Aminotransfer ALT/SGPT 181 U/L (16-61); Albumin, Serum 4.3 g/dL (3.2-5.0); Alkaline Phosphatase 202 U/L (45-117); Anion Gap 9 (5-15); BUN 2 mg/dL (7-18); BUN/Creat Ratio 2.9 RATIO (10-20); Calcium,Total 9.3 mg/dL (8.5-10.1); Chloride 102 mmol/L (98-107); Creatinine, Serum 0.69 mg/dL (0.70-1.30); EST Glomerular Filtration Rate 132 mL/min (>60); Est Glom Filt Rate - Afr Amer 159 mL/min (>60); Estimated Creatinine Clearance 118.45 ml/min; Globulin 4.4 g/dL (2.2-4.2); Glucose 101 mg/dL (74-106); Potassium 3.9 mmol/L (3.5-5.1); Protein, Total 8.7 g/dL (6.4-8.2); Sodium Level 137 mmol/L (136-145)
[2022-06-14 15:57] LABS: Amphetamine Urine VISTA NEGATIVE (<1000 ng/mL); Barbiturate Urine VISTA NEGATIVE (< 200 ng/mL); Benzodiazepine Urine VISTA NEGATIVE (< 200 ng/mL); Cocaine Urine VISTA NEGATIVE (< 300 ng/mL); Ecstacy Urine VISTA NEGATIVE (< 500 ng/mL); Methadone Urine VISTA NEGATIVE (< 300 ng/mL); PCP Urine VISTA NEGATIVE (< 25 ng/mL); THC Urine VISTA NEGATIVE (< 50 ng/mL); Vista UDS pH Range 6
--- NOTE | 2022-06-14 16:18 | CM.ED ---
Social Work Note Referral Source: case find Referral Reason: ZEENAT DUNLAP met with patient and introduced herself and role as [facility] Television Servicer. Patient was laying in bed and agreeable to speak with FABI. Patient reports he is hallucinating and can see shadows and white light. Patient reports it is due to his mental health. Patient reports daily use of 30 beers a day and reports drinking before arriving. Patient explained his mother brought him in and will need to be apart of discharge planning as she is his transportation and a good support. FABI briefly reviewed ZEENAT rules including his personal belongings being locked up, no guests and meeting with Monse addictions therapist, to assist with discharge plan/ after care. Patient reports understanding and requesting lights off as well a Sprite; FABI assisted. FABI updated ED provider Vinicius patient is reporting hallucinations of shadows and white lights. Plan: [facility]
[2022-06-14] MEDS: LORazepam 2 MG/ML Syringe 1 MG IV (16:45)
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
--- NOTE | 2022-06-14 17:21 | NURSING ---
ramp program consent went over and signed and copy given for pt. pt agreeable and waiting on bed for upstairs. hospitalist in to see prior to going upstairs
[2022-06-14] MEDS: Phenobarbital 32.4 MG Tablet PO ×2 (18:37→22:28)
[2022-06-14] MEDS: 0.9% Normal Saline 1,000 ML 999 ML IV (18:37)
[2022-06-14 20:19] LABS: Prothrombin Time (Protime)PT. 13.3 SECONDS (11.7-14.9)
[2022-06-14] MEDS: 0.9% Saline Lock 10 ML Syringe IV (20:47)
[2022-06-14] MEDS: Arthritis Pain Compound 60 CLICK TUBE TOPICAL (22:31)
[2022-06-14] MEDS: LORazepam 1 MG Tablet 2 MG PO (22:36)
[2022-06-15] MEDS: Phenobarbital 32.4 MG Tablet PO ×6 (02:03→21:55)
[2022-06-15] MEDS: LORazepam 1 MG Tablet 2 MG PO ×2 (02:04→06:11)
[2022-06-15 02:06] VITALS: BP 156/103; PULSE 109; RESP 17; TEMP 36.6; O2SAT 94
[2022-06-15 06:10] VITALS: BP 103/61; PULSE 105; RESP 17; TEMP 36.7; O2SAT 98
[2022-06-15] MEDS: Arthritis Pain Compound 60 CLICK TUBE TOPICAL ×3 (06:12→21:55)
[2022-06-15 06:47] LABS: Absolute Lymphocyte Count 0.54 X10^3/uL (0.83-4.51); Absolute Neutrophil Count 3.4 X10^3/uL (2.0-7.7); Basophil# 0.04 X10^3/uL; Basophil% 0.9 % (0-1); Eosinophil# 0.03 X10^3/uL; Eosinophils% 0.7 % (0-5); Hematocrit 38.8 % (40-54); Hemoglobin 13.1 g/dL (13.0-16.5); Lymphocyte # 0.54 X10^3/ul (0.83-4.51); Lymphocyte % 11.7 % (19-41); Mean Corp Hgb Conc 33.8 g/dL (32-36); Mean Corpuscular Hgb 32.3 pg (27.0-32.0); Mean Corpuscular Volume 95.6 fL (80-94); Mean Platelet Vol. 9.9 fl (6.2-12.0); Monocyte# 0.58 X10^3/uL; Monocyte% 12.6 % (0-10); NRBC Flagged by Analyzer 0 % (0-5); Neutrophil # 3.41 X10^3/uL (2.7-7.7); Neutrophil % 73.9 % (47-70); POSITIVE DIFFERENTIAL YES; Platelet Count 103 K/mm3 (150-450); RBC Distribution Width CV 13.7 % (11.6-14.6); RBC Distribution Width SD 48.3 fl (35.1-43.9); Red Blood Count 4.06 M/mm3 (4.6-6.2); White Blood Count 4.6 K/mm3 (4.4-11.0)
[2022-06-15 06:56] LABS: Differential Indicated SCAN CRITERIA MET
[2022-06-15 07:25] LABS: Differential Comment SCANNED
[2022-06-15 07:28] LABS: ALB/GLOB Ratio 0.9 RATIO (0.9-2.4); AST(SGOT) 232 U/L (15-37); Alanine Aminotransfer ALT/SGPT 145 U/L (16-61); Albumin, Serum 3.6 g/dL (3.2-5.0); Alkaline Phosphatase 167 U/L (45-117); Anion Gap 7 (5-15); BUN 4 mg/dL (7-18); BUN/Creat Ratio 5.8 RATIO (10-20); Calcium,Total 8.7 mg/dL (8.5-10.1); Chloride 105 mmol/L (98-107); Creatinine, Serum 0.69 mg/dL (0.70-1.30); EST Glomerular Filtration Rate 133 mL/min (>60); Est Glom Filt Rate - Afr Amer 161 mL/min (>60); Estimated Creatinine Clearance 116.58 ml/min; Globulin 3.8 g/dL (2.2-4.2); Glucose 106 mg/dL (74-106); Magnesium 1.9 mg/dL (1.6-2.6); Phosphorus 3.6 mg/dL (2.5-4.9); Potassium 3.5 mmol/L (3.5-5.1); Protein, Total 7.4 g/dL (6.4-8.2); Sodium Level 138 mmol/L (136-145); Thyroid Stim Hormone (TSH) 2.17 uIU/mL (0.358-3.74)
[2022-06-15] MEDS: Ondansetron 8 MG Tablet PO ×2 (08:39→21:59)
--- NOTE | 2022-06-15 09:23 | NS ---
Provided written copy of daily specials/first choice menu and how to order - assisted her by ordering special for dinner tonight w/ juice. Food dislikes- not much of a meat eater; prefers hot cereal.
[2022-06-15] MEDS: Folic Acid 1 MG Tablet PO (09:43)
[2022-06-15] MEDS: Multivitamins,Therapeutic Tablet 1 TABLET PO (09:43)
[2022-06-15] MEDS: Thiamine Hydrochloride 100 MG Tablet PO (09:43)
[2022-06-15 10:00] VITALS: BP 135/102; PULSE 98; RESP 18; TEMP 36.7; O2SAT 98
--- NOTE | 2022-06-15 10:13 | PN.HOSP_ITS ---
Reason for Visit Reason for Visit: Diagnoses Alcohol abuse, uncomplicated (06/14/22) Alcohol dependence with withdrawal, unspecified (06/14/22) Alcohol use, unspecified with intoxication, unspecified (06/14/22) Subjective Subjective Still having some shakes but does report feeling better today overall. Abdominal pain improved though still somewhat better Objective Data Objective Data Vital Signs: Vital Signs Temp Pulse Resp BP Pulse Ox O2 Del Method 98.1 F 105 H 17 103/61 98 Room Air 06/15/22 06:10 06/15/22 06:10 06/15/22 06:10 06/15/22 06:10 06/15/22 06:10 06/15/22 06:10 Oxygen Delivery Method Room Air Weight: 60.328 kg Body Mass Index (BMI) 20.2 Intake & Output: Intake and Output for Last 24 Hours 06/13/22 06/14/22 06/15/22 23:59 23:59 23:59 Intake Total 1320 / 1320 240 / 240 Balance 1320 / 1320 240 / 240 Lab / Micro Data Result Diagrams: 06/15/22 06:28 06/15/22 06:28 Labs: Laboratory Results - last 24 hr 06/14/22 15:26: WBC 4.5, RBC 4.53 L, Hgb 14.7, Hct 42.6, MCV 94.0, MCH 32.5 H, MCHC 34.5, RDW Std Deviation 47.7 H, RDW Coeff of Rohit 13.7, Plt Count 128 L, MPV 9.6, Immature Gran % (Auto) 0.200, Neut % (Auto) 55.0, Lymph % (Auto) 30.2, [place] % (Auto) 12.2 H, Eos % (Auto) 1.3, Baso % (Auto) 1.1 H, Absolute Neuts (auto) 2.5, Absolute Lymphs (auto) 1.36, Nucleated RBC % 0 06/14/22 15:26: Sodium 137, Potassium 3.9, Chloride 102, Carbon Dioxide 26.0, Anion Gap 9, BUN 2 L, Creatinine 0.69 L, Estim Creat Clear Calc 118.45, Est GFR (MDRD) Af Amer 159, Est GFR (MDRD) Non-Af 132, BUN/Creatinine Ratio 2.9 L, Glucose 101, Calcium 9.3, Total Bilirubin 0.40, AST 340 H, ALT 181 H, Alkaline Phosphatase 202 H, Total Protein 8.7 H, Albumin 4.3, Globulin 4.4 H, Albumin/Globulin Ratio 1.0 06/14/22 15:26: Ethyl Alcohol 472.0 H* 06/14/22 15:26: Urine Opiates Screen NEGATIVE, Urine Methadone Screen NEGATIVE, Ur Barbiturates Screen NEGATIVE, Ur Phencyclidine Scrn NEGATIVE, Ur Amphetamines Screen NEGATIVE, MDMA (Ecstasy) Screen NEGATIVE, U Benzodiazepines Scrn NEGATIVE, Urine Cocaine Screen NEGATIVE, U Cannabinoids Screen NEGATIVE, Ur Drug Screen Comment 06/14/22 19:44: PT 13.3, INR 1.0 06/15/22 06:28: WBC 4.6, RBC 4.06 L, Hgb 13.1, Hct 38.8 L, MCV 95.6 H, MCH 32.3 H, MCHC 33.8, RDW Std Deviation 48.3 H, RDW Coeff of Rohit 13.7, Plt Count 103 L, MPV 9.9, Immature Gran % (Auto) 0.200, Neut % (Auto) 73.9 H, Lymph % (Auto) 11.7 L, [place] % (Auto) 12.6 H, Eos % (Auto) 0.7, Baso % (Auto) 0.9, Absolute Neuts (auto) 3.4, Absolute Lymphs (auto) 0.54 L, Nucleated RBC % 0, Differential Comment SCANNED 06/15/22 06:28: PT 13.0, INR 1.0 06/15/22 06:28: Sodium 138, Potassium 3.5, Chloride 105, Carbon Dioxide 26.0, Anion Gap 7, BUN 4 L, Creatinine 0.69 L, Estim Creat Clear Calc 116.58, Est GFR (MDRD) Af Amer 161, Est GFR (MDRD) Non-Af 133, BUN/Creatinine Ratio 5.8 L, Glucose 106, Calcium 8.7, Phosphorus 3.6, Magnesium 1.9, Total Bilirubin 0.50, AST 232 H, ALT 145 H, Alkaline Phosphatase 167 H, Total Protein 7.4, Albumin 3.6, Globulin 3.8, Albumin/Globulin Ratio 0.9, TSH 2.17 06/15/22 06:28: Ammonia 30.0 Physical Exam Narrative General: Alert, oriented, no apparent distress HEENT: Atraumatic, normocephalic Eyes: Anicteric, normal conjunctiva, extraocular movements grossly intact Neck: Supple Respiratory: Clear to auscultation bilaterally, normal respiratory effort Cardiovascular: Regular rate and rhythm GI: Soft, very mild tender to palpation in right upper quadrant, nondistended Extremities: No edema Musculoskeletal: Moving all extremities Neuro: Some shaking of his hands Skin: No rashes appreciated Psych: Cooperative Assessment & Plan Assessment/Plan (1) Alcohol intoxication: (2) Alcohol abuse: (3) Alcohol withdrawal: PLAN: Plan #Alcohol use disorder - We will begin CIWA every 4 for 24 hours, then every 6 for 24 hours, then every 12 until discharge -Will begin phenobarbital taper -Gabapentin 300 mg every 8 as needed -Will start Bentyl and hydroxyzine as needed as well as loperamide as needed -Trazodone 100 mg p.o. nightly as needed sleep -Begin thiamine and folic acid supplementation -Zofran as needed for nausea -Case management consult to assist with discharge planning -EtOH level 472 and drug screen negative -We will add as needed CIWA medications as well given extensive drinking in addition to history of withdrawal seizures. -06/15: Continue phenobarb and Ativan with CIWA scoring. Improved today though still going through significant withdrawal #Transaminitis -No liver function tests since 2018 -AST 340, ALT 181 with an alk phos of 202 and a normal bilirubin -Has some slight tenderness in right upper quadrant -Reported he was told the past he had cirrhosis but he is unsure of that diagnosis -Has history of hepatitis -We will order right upper quadrant -PT/INR, hepatic panel -May be due to alcoholic hepatitis, awaiting PT and INR to calculate discriminant factor though seems to be mild in nature and do not think he will need glucocorticoids -We will give hydration -06/15: LFTs better today, awaiting liver ultrasound #Chronic pain -NSAIDs and topical -Can consider opioids however given detox and concomitant phenobarb and potentially as needed Ativan would like to avoid potentially dangerous combination and if it is used will need to be used very carefully #Tobacco use -Nicotine patch -Advised cessation #DVT ppx: Low risk, ambulatory Latasha Nye MD Time spent in the patient's overall evaluation,decision-making process, review of diagnostic data, adjustment of management, discussion with other providers, nursing nursing and ancillary staff involved in patient's care documentation, 30 minutes Charges/Coding Visit Charges Inpatient E&M: 34973 Subs Hosp L2
[2022-06-15 11:01] LABS: HIV - WCH Non-Reactive (Nonreactive)
[2022-06-15] MEDS: 0.9% Normal Saline 1,000 ML 999 ML IV (11:20)
[2022-06-15 14:00] VITALS: BP 145/95; PULSE 100; RESP 18; TEMP 37; O2SAT 98
--- NOTE | 2022-06-15 17:50 | US_ITS ---
STUDY: ABDOMINAL ULTRASOUND - RIGHT UPPER QUADRANT REASON FOR VISIT: Male, 46 years old transaminitis TECHNIQUE: Ultrasound evaluation of the right upper quadrant was performed with real-time and static dickerson-scale imaging. TECHNICAL QUALITY: Adequate. COMPARISON: None. FINDINGS: Liver: The liver measures 16.9 cm. There is increased echogenicity consistent with fatty infiltration. The bile ducts are within normal limits. There is hepatic color flow. The direction of portal flow is hepatopetal. There is no demonstrated mass lesion. Gallbladder: Normal distended gallbladder. The gallbladder wall measures 2.0 mm. There is a negative sonographic Carreno''s sign. There is no pericholecystic fluid. There are no gallstones. Common Bile Duct (C.B.D.): The common bile duct measures 4 mm. Pancreas: Normal size of the head, body of the pancreas. The tibial portion is obscured due to overlying bowel gas. There is normal echogenicity of the pancreas. There is no demonstrated pancreatic mass or cyst. Right Kidney: Normal size of the right kidney. The right kidney measures 11.8 cm x 5.7 cm x 5.7 cm. Normal renal cortex. The right cortex measures 1.7 cm. There is no demonstrated renal mass or cyst. There is no right hydronephrosis. US/Liver IMPRESSION: Fatty infiltration of the liver. Electronically Signed: Maxiem Menendez MD at 14:36 EDT ,
[2022-06-15 18:02] VITALS: BP 132/98; PULSE 85; RESP 18; TEMP 37.1; O2SAT 98
[2022-06-15] MEDS: traZODone 100 MG Tablet PO (21:59)
[2022-06-15 22:00] VITALS: BP 130/87; PULSE 86; RESP 16; TEMP 36.6; O2SAT 97
[2022-06-16] MEDS: Phenobarbital 32.4 MG Tablet PO ×6 (02:36→21:30)
[2022-06-16 04:00] VITALS: BP 118/89; PULSE 85; RESP 16; TEMP 36.9; O2SAT 97
[2022-06-16 07:16] VITALS: PULSE 80
[2022-06-16] MEDS: Thiamine Hydrochloride 100 MG Tablet PO (07:26)
[2022-06-16] MEDS: Folic Acid 1 MG Tablet PO (07:27)
[2022-06-16] MEDS: Multivitamins,Therapeutic Tablet 1 TABLET PO (07:27)
[2022-06-16 08:09] LABS: HEPATITIS B SURFACE AG Negative (Negative); Hep C Antibodies Non Reactive (Non Reactive); Hepatitis A IgM Antibody Negative (Negative); Hepatitis B Core AB IgM Negative (Negative)
[2022-06-16 10:24] VITALS: BP 133/91; PULSE 80; RESP 16; TEMP 37.3; O2SAT 95
--- NOTE | 2022-06-16 10:32 | ADDICTION ---
This sports writer met with client for d/c planning. Introduced self to client, he was pleasant and cooperative. Client reports he is from [place], [place] and lives with his mother who is his primary sober support. Client is unemployed and requires transportation d/t no license r/t DUI's. Education provided re: LOC and treatment options. Client is undecided in regards to treatment. He refuses residential or referrals to treatment agencies. He verbalized his mother will transport him (Client reports he will be d/c'd Saturday06/18/22)and together they will find treatment. Resources for local treatment agencies and this sports writer's contact information provided to client. Inquired if client is interested in MAT (Vivitrol). Client reports taking Naltrexone in the past, he reports he had a bad reaction to Vivitrol. Client was encouraged to talk to his PCP or treatment provider re: MAT options. Client has limited insight on how to address ETOH treatment. He appears to understand the severity of his ETOH use, however does not want to commit to treatment. Client reports he has attended 12-step meetings in the past, but does not feel the meetings are helpful. D/C plan signed by client and this sports writer.
--- NOTE | 2022-06-16 10:38 | PN.HOSP_ITS ---
Reason for Visit Reason for Visit: Diagnoses Alcohol abuse, uncomplicated (06/14/22) Alcohol dependence with withdrawal, unspecified (06/14/22) Alcohol use, unspecified with intoxication, unspecified (06/14/22) Subjective Subjective Follow-up alcohol detox, continues to feel better Objective Data Objective Data Vital Signs: Vital Signs Temp Pulse Resp BP Pulse Ox O2 Del Method 99.1 F 80 16 133/91 H 95 Room Air 06/16/22 10:24 06/16/22 10:24 06/16/22 10:24 06/16/22 10:24 06/16/22 10:24 06/16/22 10:24 Oxygen Delivery Method Room Air Weight: 60.328 kg Body Mass Index (BMI) 20.2 Intake & Output: Intake and Output for Last 24 Hours 06/14/22 06/15/22 06/16/22 23:59 23:59 23:59 Intake Total 1320 / 1320 3690 / 3690 300 / 300 Output Total 1250 / 1250 Balance 1320 / 1320 2440 / 2440 300 / 300 Lab / Micro Data Result Diagrams: 06/15/22 06:28 06/15/22 06:28 Labs: Laboratory Results - last 24 hr 06/15/22 06:28: HIV 1&2 Antibody Non-Reactive Radiography Diagnostic Testing: Radiology Impression Liver Ultrasound 06/15/22 17:50 IMPRESSION: Fatty infiltration of the liver. Electronically Signed: Maxime Menendez MD at 14:36 EDT Reading Location ID and State: [address] [place] [address] , Service support , Physical Exam Narrative General: Alert, oriented, no apparent distress HEENT: Atraumatic, normocephalic Eyes: extraocular movements grossly intact Neck: Supple Respiratory: normal respiratory effort Cardiovascular: no edema appreciated GI: nondistended Extremities: Moving all extremities Neuro: No overt focal neurological deficits Psych: Cooperative Assessment & Plan Assessment/Plan (1) Alcohol intoxication: (2) Alcohol abuse: (3) Alcohol withdrawal: PLAN: Plan #Alcohol use disorder - We will begin CIWA every 4 for 24 hours, then every 6 for 24 hours, then every 12 until discharge -Will begin phenobarbital taper -Gabapentin 300 mg every 8 as needed -Will start Bentyl and hydroxyzine as needed as well as loperamide as needed -Trazodone 100 mg p.o. nightly as needed sleep -Begin thiamine and folic acid supplementation -Zofran as needed for nausea -Case management consult to assist with discharge planning -EtOH level 472 and drug screen negative -We will add as needed CIWA medications as well given extensive drinking in addition to history of withdrawal seizures. -06/15: Continue phenobarb and Ativan with CIWA scoring. Improved today though still going through significant withdrawal -06/16: Continues to improve #Transaminitis -No liver function tests since 2018 -AST 340, ALT 181 with an alk phos of 202 and a normal bilirubin -Has some slight tenderness in right upper quadrant -Reported he was told the past he had cirrhosis but he is unsure of that diagnosis -Has history of hepatitis -We will order right upper quadrant -PT/INR, hepatic panel -May be due to alcoholic hepatitis, awaiting PT and INR to calculate discriminant factor though seems to be mild in nature and do not think he will need glucocorticoids -We will give hydration -06/15: LFTs better today, awaiting liver ultrasound -06/16: Right upper quadrant shows fatty infiltration of the liver. Hepatitis panel pending #Chronic pain -NSAIDs and topical -Can consider opioids however given detox and concomitant phenobarb and potentially as needed Ativan would like to avoid potentially dangerous combination and if it is used will need to be used very carefully #Tobacco use -Nicotine patch -Advised cessation #DVT ppx: Low risk, ambulatory Latasha Nye MD Time spent in the patient's overall evaluation,decision-making process, review of diagnostic data, adjustment of management, discussion with other providers, nursing nursing and ancillary staff involved in patient's care documentation, 30 minutes Charges/Coding Visit Charges Inpatient E&M: 41928 Subs Hosp L2
[2022-06-16] MEDS: Loperamide 2 MG Capsule PO (11:47)
[2022-06-16] MEDS: Gabapentin 300 MG Capsule PO ×2 (11:47→21:37)
[2022-06-16] MEDS: Ibuprofen 600 MG Tablet PO (11:47)
[2022-06-16 13:52] VITALS: BP 130/90; PULSE 114; RESP 18; TEMP 37.3; O2SAT 98
[2022-06-16] MEDS: Arthritis Pain Compound 60 CLICK TUBE TOPICAL ×2 (13:56→21:29)
[2022-06-16] MEDS: LORazepam 1 MG Tablet 2 MG PO (13:56)
[2022-06-16 21:26] VITALS: BP 116/77; PULSE 100; RESP 16; TEMP 36.4; O2SAT 96
[2022-06-16] MEDS: traZODone 100 MG Tablet PO (21:37)
[2022-06-17 02:53] VITALS: BP 101/88; PULSE 89; RESP 16; TEMP 36.8; O2SAT 97
[2022-06-17] MEDS: hydrOXYzine PAM 25 MG Capsule 50 MG PO ×2 (02:56→16:34)
[2022-06-17] MEDS: Ondansetron 8 MG Tablet PO (02:56)
[2022-06-17] MEDS: Phenobarbital 32.4 MG Tablet PO ×4 (02:56→20:15)
[2022-06-17] MEDS: Arthritis Pain Compound 60 CLICK TUBE TOPICAL ×2 (06:44→13:48)
[2022-06-17 08:06] VITALS: PULSE 90
[2022-06-17 08:11] VITALS: BP 116/95; PULSE 80; RESP 14; TEMP 37.4; O2SAT 98
[2022-06-17] MEDS: Folic Acid 1 MG Tablet PO (08:19)
[2022-06-17] MEDS: Thiamine Hydrochloride 100 MG Tablet PO (08:19)
[2022-06-17] MEDS: Multivitamins,Therapeutic Tablet 1 TABLET PO (08:19)
--- NOTE | 2022-06-17 09:27 | PN.HOSP_ITS ---
Reason for Visit Reason for Visit: Diagnoses Alcohol abuse, uncomplicated (06/14/22) Alcohol dependence with withdrawal, unspecified (06/14/22) Alcohol use, unspecified with intoxication, unspecified (06/14/22) Subjective Subjective Reports feeling roughly the same, no active complaints this morning Objective Data Objective Data Vital Signs: Vital Signs Temp Pulse Resp BP Pulse Ox O2 Del Method 99.3 F H 80 14 116/95 H 98 Room Air 06/17/22 08:11 06/17/22 08:11 06/17/22 08:11 06/17/22 08:11 06/17/22 08:11 06/17/22 08:11 Oxygen Delivery Method Room Air Weight: 60.328 kg Body Mass Index (BMI) 20.2 Intake & Output: Intake and Output for Last 24 Hours 06/15/22 06/16/22 06/17/22 23:59 23:59 23:59 Intake Total 3690 / 3690 450 / 450 Output Total 1250 / 1250 Balance 2440 / 2440 450 / 450 Lab / Micro Data Result Diagrams: 06/15/22 06:28 06/15/22 06:28 Labs: Laboratory Results - last 24 hr 06/15/22 06:28: Hepatitis A IgM Ab Negative, Hep Bs Antigen Negative, Hep B Core IgM Ab Negative, Hepatitis C Ab (EIA) Non Reactive, Hep C Ab Comment Comment Physical Exam Narrative General: Alert, oriented, no apparent distress HEENT: Atraumatic, normocephalic Eyes: extraocular movements grossly intact Neck: Supple Respiratory: normal respiratory effort Cardiovascular: no edema appreciated GI: nondistended Extremities: Moving all extremities Neuro: No overt focal neurological deficits Psych: Cooperative Assessment & Plan Assessment/Plan (1) Alcohol intoxication: (2) Alcohol abuse: (3) Alcohol withdrawal: PLAN: Plan #Alcohol use disorder - We will begin CIWA every 4 for 24 hours, then every 6 for 24 hours, then every 12 until discharge -Will begin phenobarbital taper -Gabapentin 300 mg every 8 as needed -Will start Bentyl and hydroxyzine as needed as well as loperamide as needed -Trazodone 100 mg p.o. nightly as needed sleep -Begin thiamine and folic acid supplementation -Zofran as needed for nausea -Case management consult to assist with discharge planning -EtOH level 472 and drug screen negative -We will add as needed CIWA medications as well given extensive drinking in addition to history of withdrawal seizures. -06/15: Continue phenobarb and Ativan with CIWA scoring. Improved today though still going through significant withdrawal -06/16: Continues to improve -06/17: No complaints, remains on taper. Decreasing PRN ativan to 1mg #Transaminitis -No liver function tests since 2017 -AST 340, ALT 181 with an alk phos of 202 and a normal bilirubin -Has some slight tenderness in right upper quadrant -Reported he was told the past he had cirrhosis but he is unsure of that diagnosis -Has history of hepatitis -We will order right upper quadrant -PT/INR, hepatic panel -May be due to alcoholic hepatitis, awaiting PT and INR to calculate discrimina nt factor though seems to be mild in nature and do not think he will need glucocorticoids -We will give hydration -06/15: LFTs better today, awaiting liver ultrasound -06/16: Right upper quadrant shows fatty infiltration of the liver. Hepatitis panel pending -06/17: No complaints of pain this a.m., hepatitis panel negative #Chronic pain -NSAIDs and topical -Can consider opioids however given detox and concomitant phenobarb and potentially as needed Ativan would like to avoid potentially dangerous c ombination and if it is used will need to be used very carefully #Tobacco use -Nicotine patch -Advised cessation #DVT ppx: Low risk, ambulatory Latasha Nye MD Time spent in the patient's overall evaluation,decision-making process, review of diagnostic data, adjustment of management, discussion with other providers, nursing nursing and ancillary staff involved in patient's care documentation, 30 minutes Charges/Coding Visit Charges Inpatient E&M: 91106 Subs Hosp L2
[2022-06-17 13:43] VITALS: BP 127/94; PULSE 81; RESP 18; TEMP 36.7; O2SAT 100
[2022-06-17 20:09] VITALS: BP 124/94; PULSE 66; RESP 16; TEMP 36.4; O2SAT 98
[2022-06-17] MEDS: Gabapentin 300 MG Capsule PO (20:15)
[2022-06-17] MEDS: traZODone 100 MG Tablet PO (20:15)
[2022-06-18] MEDS: hydrOXYzine PAM 25 MG Capsule 50 MG PO (00:22)
[2022-06-18 03:05] VITALS: BP 120/92; PULSE 75; RESP 16; TEMP 36.6; O2SAT 100
[2022-06-18] MEDS: Phenobarbital 32.4 MG Tablet PO ×2 (03:07→07:52)
[2022-06-18] MEDS: Arthritis Pain Compound 60 CLICK TUBE TOPICAL (06:23)
[2022-06-18 07:48] VITALS: BP 114/80; PULSE 65; RESP 18; TEMP 36.8; O2SAT 97
[2022-06-18] MEDS: Folic Acid 1 MG Tablet PO (07:52)
[2022-06-18] MEDS: Multivitamins,Therapeutic Tablet 1 TABLET PO (07:52)
[2022-06-18] MEDS: Thiamine Hydrochloride 100 MG Tablet PO (07:52)
[2022-06-18] MEDS: Gabapentin 300 MG Capsule PO (07:57)
[2022-06-18 10:05] LABS: Pathologist Review Reviewed
--- NOTE | 2022-06-18 11:14 | DCINST_ITS ---
Discharge Instructions Diet Discharge Diet: Low fat / Low cholesterol Activity Discharge Activity: Return to Normal Activity Weight Bearing Status: Weight bearing as tolerated Dressing / Incision Call your doctor if you observe: Fever of 101 or Higher, Shortness of breath, Dizziness, Swelling in the ankles, Chest pain and Increased palpitations (irregular heartbeat) Follow Up Care Test Results: Test results from this visit will be discussed in further detail at your follow- up appointment, if applicable. Discharge Plan Admission Admit Date/Time: 06/14/22 16:58 Primary Reason for Your Visit: acute alcohol withdrawal Attending Provider: Julee Costello Primary Care Provider: RYLIE WATTERS Consulting Providers: Latasha Nye Discharge Orders/Prescriptions Prescriptions: No Action NK Referrals / Follow Up: RYLIE WATTERS [Other] - Within 2 Weeks Care Physician,No Primary [Non-Staff] - Disposition Disposition (needs filled in before D/C Order can be placed): Home, Self Care
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
[2022-06-18 11:23] VITALS: BP 125/87; PULSE 88; RESP 18; TEMP 36.5; O2SAT 100
== END 2022-06-18 12:41 | disposition home or self-care (01) | DRG 897 ==
LOC: ED 16:36 → MS3 17:21
PROVIDERS: Physician Assistant; Admitting Provider Internal Medicine; Emergency Provider Emergency Medicine; Visit Provider Student in an Organized Health Care Education/Training Program
DX: F10.239 Alcohol dependence with withdrawal, unspecified (principal); K76.0 Fatty (change of) liver, not elsewhere classified; F10.229 Alcohol dependence with intoxication, unspecified; F12.90 Cannabis use, unspecified, uncomplicated; F17.210 Nicotine dependence, cigarettes, uncomplicated; M79.671 Pain in right foot; M79.651 Pain in right thigh; M79.661 Pain in right lower leg; W34.00XS Accidental discharge from unspecified firearms or gun, sequela; G89.29 Other chronic pain; Y90.8 Blood alcohol level of 240 mg/100 ml or more; Z79.899 Other long term (current) drug therapy
CPT/HCPCS: 36415; 76705; 80053; 80074; 80307; 82077; 82140; 83735; 84100; 84443; 85025; 85610; 86703; 97802; 99283; 99406; J7030; A4216

== ENCOUNTER 2024-07-10 16:41 | Inpatient (IN) | payer MEDICARE, MEDICAID, SELFPAY ==
[2024-07-10] VITALS (9 sets, daily range): BP systolic 116–135; BP diastolic 87–99; PULSE 75–95; RESP 15–18; TEMP 36.6–36.9; O2SAT 92–100; BMI 20.8
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
--- NOTE | 2024-07-10 17:30 | ED.RN ---
DR. MONTALVO SEEN PT. PER DR. MONTALVO STATES PT IS AT THIS TIME DENYING ANY SI OR HI. DOES NOT WANT SITTER OR PINK SLIP AT THIS TIME.
[2024-07-10 17:39] LABS: Absolute Lymphocyte Count 1.25 X10^3/uL (0.83-4.51); Absolute Neutrophil Count 1.4 X10^3/uL (2.0-7.7); Basophil# 0.03 X10^3/uL; Eosinophil# 0.02 X10^3/uL; Eosinophils% 0.6 % (0-5); Hematocrit 38.3 % (40-54); Hemoglobin 13.8 g/dL (13.0-16.5); Lymphocyte # 1.25 X10^3/ul (0.83-4.51); Lymphocyte % 40.1 % (19-41); Mean Corpuscular Hgb 31.7 pg (27.0-32.0); Mean Platelet Vol. 10.1 fl (6.2-12.0); Monocyte# 0.42 X10^3/uL; Monocyte% 13.5 % (0-10); NRBC Flagged by Analyzer 0 % (0-5); Neutrophil # 1.39 X10^3/uL (2.7-7.7); Neutrophil % 44.5 % (47-70); POSITIVE COUNT YES; Platelet Count 94 K/mm3 (150-450); RBC Distribution Width CV 14.9 % (11.6-14.6); RBC Distribution Width SD 48.7 fl (35.1-43.9); Red Blood Count 4.35 M/mm3 (4.6-6.2); White Blood Count 3.1 K/mm3 (4.4-11.0)
[2024-07-10 17:57] LABS: ALB/GLOB Ratio 1.8 RATIO (0.9-2.4); AST(SGOT) 202 U/L (<=37); Alanine Aminotransfer ALT/SGPT 133 U/L (<=46); Albumin, Serum 4.9 g/dL (3.5-5.0); Alkaline Phosphatase 80 U/L (40-129); Anion Gap 20 (5-15); BUN 3 mg/dL (4-19); BUN/Creat Ratio 4.4 RATIO (10-20); Calcium,Total 8.8 mg/dL (7.6-11.0); Carbon Dioxide 21.3 mmol/L (21.0-32.0); Chloride 93 mmol/L (98-108); Creatinine, Serum 0.71 mg/dL (0.70-1.20); EST Glomerular Filtration Rate 114 (>60); Globulin 2.7 g/dL (2.2-4.2); Glucose 98 mg/dL (70-99); Potassium 3.5 mmol/L (3.3-5.1); Protein, Total 7.6 g/dL (5.9-8.4); Sodium Level 134 mmol/L (133-145); Total Bilirubin 0.64 mg/dL (0.00-1.30)
[2024-07-10 18:02] LABS: Amphetamine Urine NEGATIVE (<1000 ng/mL); Barbiturate Urine NEGATIVE (< 200 ng/mL); Benzodiazepine Urine NEGATIVE (< 200 ng/mL); Buprenorphine Urine NEGATIVE (< 200 ng/mL); Cocaine Urine NEGATIVE (< 300 ng/mL); Fentanyl, Urine NEGATIVE; Methadone Urine NEGATIVE (< 300 ng/mL); Opiates Urine NEGATIVE (< 300 ng/mL); Oxycodone, Urine NEGATIVE (< 100 ng/mL); PCP Urine NEGATIVE (< 25 ng/mL); THC Urine PRESUMPTIVE POSITIVE (< 50 ng/mL)
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
[2024-07-10] MEDS: Lorazepam 2 MG/ML WCH Syringe 0.5 MG IV (20:37)
[2024-07-10 20:55] LABS: Prothrombin Time (Protime)PT. 12.9 SECONDS (11.7-14.9)
[2024-07-10 21:10] LABS: Hemoglobin A1c 5.2 % (<=5.6)
[2024-07-10 21:26] LABS: HIV Nonreactive (Nonreactive); Magnesium 2.2 mg/dL (1.5-2.2)
[2024-07-10] MEDS: Lactated Ringers 1,000 ML 150 ML IV (22:40)
[2024-07-10] MEDS: Phenobarbital 32.4 MG Tablet 64.8 MG PO (22:40)
[2024-07-10 22:44] LABS: Vitamin B12 572 pg/mL (180-914)
[2024-07-10] MEDS: Ondansetron 8 MG Tablet PO (22:45)
[2024-07-10] MEDS: Dicyclomine 10 MG Capsule 20 MG PO (22:45)
[2024-07-10] MEDS: hydrOXYzine PAM 25 MG Capsule 50 MG PO (22:45)
[2024-07-11 01:58] VITALS: BP 121/20; PULSE 71; RESP 16; TEMP 36.7; O2SAT 95
[2024-07-11] MEDS: Phenobarbital 32.4 MG Tablet 64.8 MG PO ×6 (02:02→22:50)
[2024-07-11] MEDS: Lactated Ringers 1,000 ML 150 ML IV (02:02)
[2024-07-11 02:30] VITALS: PULSE 72
[2024-07-11 05:49] VITALS: BMI 20.8
[2024-07-11 06:06] VITALS: BP 123/88; PULSE 76; RESP 16; TEMP 37; O2SAT 94
[2024-07-11] MEDS: Gabapentin 300 MG Capsule PO ×2 (06:15→14:25)
[2024-07-11 06:29] LABS: Absolute Lymphocyte Count 0.74 X10^3/uL (0.83-4.51); Absolute Neutrophil Count 1.8 X10^3/uL (2.0-7.7); Basophil# 0.03 X10^3/uL; Eosinophil# 0.06 X10^3/uL; Eosinophils% 1.9 % (0-5); Hematocrit 38.1 % (40-54); Hemoglobin 13.5 g/dL (13.0-16.5); Lymphocyte # 0.74 X10^3/ul (0.83-4.51); Mean Corp Hgb Conc 35.4 g/dL (32-36); Mean Corpuscular Hgb 31.5 pg (27.0-32.0); Mean Corpuscular Volume 88.8 fL (80-94); Mean Platelet Vol. 10.3 fl (6.2-12.0); Monocyte# 0.41 X10^3/uL; Monocyte% 13.3 % (0-10); NRBC Flagged by Analyzer 0 % (0-5); Neutrophil # 1.83 X10^3/uL (2.7-7.7); Neutrophil % 59.5 % (47-70); POSITIVE COUNT YES; Platelet Count 87 K/mm3 (150-450); RBC Distribution Width CV 15.2 % (11.6-14.6); RBC Distribution Width SD 49.9 fl (35.1-43.9); Red Blood Count 4.29 M/mm3 (4.6-6.2); White Blood Count 3.1 K/mm3 (4.4-11.0)
[2024-07-11 07:03] LABS: ALB/GLOB Ratio 1.8 RATIO (0.9-2.4); AST(SGOT) 177 U/L (<=37); Alanine Aminotransfer ALT/SGPT 117 U/L (<=46); Albumin, Serum 4.5 g/dL (3.5-5.0); Alkaline Phosphatase 72 U/L (40-129); Anion Gap 17 (5-15); BUN 3 mg/dL (4-19); BUN/Creat Ratio 4.7 RATIO (10-20); Calcium,Total 8.8 mg/dL (7.6-11.0); Carbon Dioxide 23.2 mmol/L (21.0-32.0); Chloride 101 mmol/L (98-108); Creatinine, Serum 0.68 mg/dL (0.70-1.20); EST Glomerular Filtration Rate 116 (>60); Estimated Creatinine Clearance 119.61 ml/min (50-250); Globulin 2.5 g/dL (2.2-4.2); Glucose 96 mg/dL (70-99); Phosphorus 4.2 mg/dL (2.7-4.5); Potassium 3.8 mmol/L (3.3-5.1); Protein, Total 6.9 g/dL (5.9-8.4); Sodium Level 141 mmol/L (133-145); Total Bilirubin 0.71 mg/dL (0.00-1.30)
[2024-07-11 07:33] LABS: Cholesterol 172 mg/dL (<=200); High Density Lipoprotein 80 mg/dL; Low Density Lipoprotein Calc. 82 mg/dL; Triglycerides 52 mg/dL; Very Low Density Lipoprotein 10 mg/dL (5-40); cholesterol:hdl ratio screen 2.16
--- NOTE | 2024-07-11 09:05 | PN.HOSP_ITS ---
Reason for Visit Reason for Visit: Diagnoses Thrombocytopenia, unspecified (07/10/24) Decreased white blood cell count, unspecified (07/10/24) Alcohol abuse, uncomplicated (07/10/24) Alcohol use, unspecified with intoxication, unspecified (07/10/24) Cannabis abuse, uncomplicated (07/10/24) Depression, unspecified (07/10/24) Anxiety disorder, unspecified (07/10/24) Suicidal ideations (07/10/24) Tobacco use (07/10/24) Subjective Subjective Patient was seen and examined today, he appears moderately shaky today, blood alcohol levels morning was 105, I have written to repeat the alcohol level at 1 PM today. Patient will need to be seen by crisis if the alcohol level falls below 100. Objective Data Objective Data Vital Signs: Vital Signs Temp Pulse Resp BP Pulse Ox O2 Del Method 98.6 F 76 16 123/88 H 94 Room Air 07/11/24 06:06 07/11/24 06:06 07/11/24 06:06 07/11/24 06:06 07/11/24 06:06 07/11/24 06:06 Oxygen Delivery Method Room Air Weight: 62.3 kg Body Mass Index (BMI) 20.8 Intake & Output: Intake and Output for Last 24 Hours 07/09/24 07/10/24 07/11/24 23:59 23:59 23:59 Intake Total 505 / 505 Balance 505 / 505 Lab / Micro Data 07/11/24 05:49 07/11/24 05:49 Labs: Laboratory Results - last 24 hr 07/10/24 17:20: WBC 3.1 L, RBC 4.35 L, Hgb 13.8, Hct 38.3 L, MCV 88.0, MCH 31.7, MCHC 36.0, RDW Std Deviation 48.7 H, RDW Coeff of Rohit 14.9 H, Plt Count 94 L, MPV 10.1, Immature Gran % (Auto) 0.300, Neut % (Auto) 44.5 L, Lymph % (Auto) 40.1, Butler % (Auto) 13.5 H, Eos % (Auto) 0.6, Baso % (Auto) 1.0, Absolute Neuts (auto) 1.4 L, Absolute Lymphs (auto) 1.25, Nucleated RBC % 0, Sodium 134, Potassium 3.5, Chloride 93 L, Carbon Dioxide 21.3, Anion Gap 20 H, BUN 3 L, Creatinine 0.71, Est GFR (MDRD) Non-Af 114, BUN/Creatinine Ratio 4.4 L, Glucose 98, Calcium 8.8, Total Bilirubin 0.64, AST 202 H, ALT 133 H, Alkaline Phosphatase 80, Total Protein 7.6, Albumin 4.9, Globulin 2.7, Albumin/Globulin Ratio 1.8, Vitamin B12 572, Urine Opiates Screen NEGATIVE, U Buprenorphine Qual NEGATIVE, Ur Oxycodone Screen NEGATIVE, Urine Methadone Screen NEGATIVE, Urine Fentanyl Screen NEGATIVE, Ur Barbiturates Screen NEGATIVE, Ur Phencyclidine Scrn NEGATIVE, Ur Amphetamines Screen NEGATIVE, U Benzodiazepines Scrn NEGATIVE, Urine Cocaine Screen NEGATIVE, U Cannabinoids Screen PRESUMPTIVE POSITIVE, Ethyl Alcohol 403.0 H* 07/10/24 20:30: PT 12.9, INR 1.0, Hemoglobin A1c 5.2, Magnesium 2.2, Serum Folate 12.20, TSH 2.110, HIV 1&2 Antibody Nonreactive 07/11/24 05:49: WBC 3.1 L, RBC 4.29 L, Hgb 13.5, Hct 38.1 L, MCV 88.8, MCH 31.5, MCHC 35.4, RDW Std Deviation 49.9 H, RDW Coeff of Rohit 15.2 H, Plt Count 87 L, MPV 10.3, Immature Gran % (Auto) 0.300, Neut % (Auto) 59.5, Lymph % (Auto) 24.0, Butler % (Auto) 13.3 H, Eos % (Auto) 1.9, Baso % (Auto) 1.0, Absolute Neuts (auto) 1.8 L, Absolute Lymphs (auto) 0.74 L, Nucleated RBC % 0, Sodium 141, Potassium 3.8, Chloride 101, Carbon Dioxide 23.2, Anion Gap 17 H, BUN 3 L, Creatinine 0.68 L, Estim Creat Clear Calc 119.61, Est GFR (MDRD) Non-Af 116, BUN/Creatinine Ratio 4.7 L, Glucose 96, Calcium 8.8, Phosphorus 4.2, Total Bilirubin 0.71, AST 177 H, ALT 117 H, Alkaline Phosphatase 72, Total Protein 6.9, Albumin 4.5, Globulin 2.5, Albumin/Globulin Ratio 1.8, Triglycerides 52, Cholesterol 172, LDL Cholesterol, Calc 82, VLDL Cholesterol 10, HDL Cholesterol 80, Cholesterol/HDL Ratio 2.16, Ethyl Alcohol 105.0 H Physical Exam Const alert, oriented x3 and no apparent distress General Appearance: cooperative and well developed Orientation / Consciousness: awake, oriented to person, oriented to place and oriented to time HEENT normocephalic, head/scalp atraumatic and moist oral mucous membranes Eyes PERRL, EOMs intact bilaterally and conjunctivae normal Neck supple, no JVD, thyroid normal and no carotid bruits General: trachea midline Resp normal respiratory effort, no retractions, no use of accessory muscles and clear to auscultation bilaterally Auscultation: Negative for rales, rhonchi or wheezes Cardio regular rate, regular rhythm, S1 normal heart sound, S2 normal heart sound, no murmurs, no rub and no gallops GI normal to inspection, nondistended, normoactive bowel sounds, soft to palpation, non-tender and non-distended Extremity no clubbing, cyanosis or edema Skin no rashes or lesions noted General Skin Exam: no breakdown Neuro oriented x3, CN's II-XII intact bilaterally, moves all extremities, no focal motor deficits and no sensory deficits noted Neuro Narrative: Patient appears tremorous today and mildly anxious Sensorium / Orientation: awake and alert Speech: speech normal Psych Psych Narrative: Patient appears tremorous today and mildly anxious Assessment & Plan Assessment/Plan (1) Alcohol dependence with withdrawal: PLAN: Plan 1. Alcohol use disorder with withdrawal-patient will remain on his present medications, he will be seen by addiction social media sr strategy manager. #2 alcohol intoxication-patient blood alcohol level will be rechecked today at 1 PM #3 suicidal ideation-crisis will likely see the patient today Total clinical time spent by myself addressing the patient's medical issues, reviewing all his data, and collaborating with the patient's care team: 35 minutes Charges/Coding Visit Charges Inpatient E&M: 18092 Subs Hosp L2
[2024-07-11 09:10] VITALS: BP 135/95; PULSE 80; RESP 16; TEMP 37; O2SAT 96
[2024-07-11] MEDS: hydrOXYzine PAM 25 MG Capsule 50 MG PO ×3 (09:22→22:51)
[2024-07-11] MEDS: Folic Acid 1 MG Tablet PO (09:22)
[2024-07-11] MEDS: Dicyclomine 10 MG Capsule 20 MG PO ×2 (09:23→18:05)
[2024-07-11] MEDS: Thiamine Hydrochloride 100 MG Tablet PO (09:24)
[2024-07-11] MEDS: Ibuprofen 200 MG Tablet PO (09:38)
--- NOTE | 2024-07-11 10:20 | CASEMGMT ---
Social Work Pt to be assessed by crisis for psychiatric placement for SI. Phone call to Crisis and referral made. Clinicals sent and they will see pt today. Physician and RN notified. RACHEL Hyman
--- NOTE | 2024-07-11 11:00 | CASEMGMT ---
Social Work SW spoke with Tiffanie from Crisis who completed assessment with pt. Pt has been cleared by Crisis and does not need psychiatric placement. A safety plan will be completed. Pt wishes to remain in [facility] for the [facility] program. Nursing is aware. RACHEL Alvarez
[2024-07-11 13:48] LABS: Alcohol, Blood (Medical)-Serum < 10.1 mg/dL (<=10.0)
[2024-07-11] MEDS: Loperamide 2 MG Capsule PO ×2 (14:25→22:51)
[2024-07-11 14:27] VITALS: BP 142/89; PULSE 73; RESP 16; TEMP 36.9; O2SAT 96
--- NOTE | 2024-07-11 16:44 | ADDICTION ---
This sba underwriter met with PT to conduct ASAM, MSE, AUDIT, DUDIT assessments and to plan for d/c. PT A+Ox4 and participated actively. All assessments completed and placed in PT's chart. PT declined a referral for follow up treatment services. TW provided client with information for a virtual [facility] treatment program and online 12 step meetings.
[2024-07-11 22:44] VITALS: BP 121/89; PULSE 68; RESP 16; TEMP 37; O2SAT 97
[2024-07-12 02:27] VITALS: BP 106/76; PULSE 60; RESP 16; TEMP 36.9; O2SAT 94
[2024-07-12] MEDS: Phenobarbital 32.4 MG Tablet 64.8 MG PO ×6 (02:30→20:49)
[2024-07-12] MEDS: Gabapentin 300 MG Capsule PO ×2 (02:31→14:08)
[2024-07-12 05:13] VITALS: BMI 22.0
[2024-07-12 06:16] VITALS: BP 123/68; PULSE 62; RESP 16; TEMP 36.8; O2SAT 97
[2024-07-12] MEDS: hydrOXYzine PAM 25 MG Capsule 50 MG PO ×2 (06:18→17:29)
[2024-07-12] MEDS: Folic Acid 1 MG Tablet PO (09:25)
[2024-07-12] MEDS: Thiamine Hydrochloride 100 MG Tablet PO (09:26)
[2024-07-12 09:59] VITALS: BP 123/91; PULSE 81; RESP 18; TEMP 36.8; O2SAT 96
--- NOTE | 2024-07-12 13:57 | PN.HOSP_ITS ---
Reason for Visit Reason for Visit: Diagnoses Thrombocytopenia, unspecified (07/10/24) Decreased white blood cell count, unspecified (07/10/24) Alcohol abuse, uncomplicated (07/10/24) Alcohol dependence with withdrawal, unspecified (07/10/24) Alcohol use, unspecified with intoxication, unspecified (07/10/24) Cannabis abuse, uncomplicated (07/10/24) Depression, unspecified (07/10/24) Anxiety disorder, unspecified (07/10/24) Suicidal ideations (07/10/24) Tobacco use (07/10/24) Subjective Subjective Patient was seen and examined today, I checked with his pharmacy and the last time patient had any medications prescribed he was on Zoloft, this was given to him in April 2024. I talked with the patient's mother by phone today, I let her know that he was not planning on following up with any outside program such as [facility], she was not happy about this and said that she would have to have a talk with him on that if he did not participate in program he would have to move out of the house. Patient states he was on antidepressants before he questions whether he could go back on them, I have elected to place him on Cymbalta 30 mg daily-he will need prescription for this at the time of discharge. Patient states he has a family practice physician in [place]. Patient told me that he was going to do a detox program on his computer at home. His mother states that he was once in an inpatient detox unit for 10 days but did not like it because he did not feel that he was on the same level as narcotic addicts. Objective Data Objective Data Vital Signs: Vital Signs Temp Pulse Resp BP Pulse Ox O2 Del Method 98.3 F 81 18 123/91 H 96 Room Air 07/12/24 09:59 07/12/24 09:59 07/12/24 09:59 07/12/24 09:59 07/12/24 09:59 07/12/24 10:00 Oxygen Delivery Method Room Air Weight: 65.9 kg Body Mass Index (BMI) 22.0 Intake & Output: Intake and Output for Last 24 Hours 07/10/24 07/11/24 07/12/24 23:59 23:59 23:59 Intake Total 1505 / 1505 Balance 1505 / 1505 Lab / Micro Data 07/11/24 05:49 07/11/24 05:49 Labs: Laboratory Results - last 24 hr 07/12/24 03:54: Phosphorus 4.0 Physical Exam Narrative alert, oriented x3 and no apparent distress General Appearance: cooperative and well developed Orientation / Consciousness: awake, oriented to person, oriented to place and oriented to time HEENT normocephalic, head/scalp atraumatic and moist oral mucous membranes Eyes PERRL, EOMs intact bilaterally and conjunctivae normal Neck supple, no JVD, thyroid normal and no carotid bruits General: trachea midline Resp normal respiratory effort, no retractions, no use of accessory muscles and clear to auscultation bilaterally Auscultation: Negative for rales, rhonchi or wheezes Cardio regular rate, regular rhythm, S1 normal heart sound, S2 normal heart sound, no murmurs, no rub and no gallops GI normal to inspection, nondistended, normoactive bowel sounds, soft to palpation, non-tender and non-distended Extremity no clubbing, cyanosis or edema Skin no rashes or lesions noted General Skin Exam: no breakdown Neuro oriented x3, CN's II-XII intact bilaterally, moves all extremities, no focal motor deficits and no sensory deficits noted Neuro Narrative: Sensorium / Orientation: awake and alert Speech: speech normal Psych Psych Narrative: Patient appears tremorous today and mildly anxious Assessment & Plan Assessment/Plan (1) Chronic alcohol abuse: (2) Alcohol dependence with withdrawal: PLAN: Plan 1. Alcohol use disorder with withdrawal-patient will remain on his present medications #2 alcohol intoxication-resolved #3 suicidal ideation-crisis saw the patient yesterday and did not feel he was a threat to himself, there are no firearms at his home and crisis did not feel he needed to go to a psych facility. #4 chronic depression-noncompliant with outpatient medication, I have decided to place the patient on Cymbalta 30 mg daily, he will need to follow-up with physician as an outpatient Total clinical time spent by myself addressing the patient's medical issues, reviewing all his data, and collaborating with the patient's care team: 35 minutes Charges/Coding Visit Charges Inpatient E&M: 64727 Subs Hosp L2
[2024-07-12] MEDS: DULoxetine Hcl 30 MG Capsule PO (14:08)
[2024-07-12 14:21] VITALS: BP 143/97; PULSE 86; RESP 16; TEMP 36.6; O2SAT 99
[2024-07-12] MEDS: Ibuprofen 200 MG Tablet PO (17:29)
[2024-07-12] MEDS: Dicyclomine 10 MG Capsule 20 MG PO (17:31)
[2024-07-12 20:35] VITALS: BP 116/98; PULSE 71; RESP 18; TEMP 36.9; O2SAT 99
[2024-07-12] MEDS: traZODone 100 MG Tablet PO (20:49)
[2024-07-13] MEDS: Phenobarbital 32.4 MG Tablet 64.8 MG PO ×2 (02:22→06:22)
[2024-07-13] MEDS: Gabapentin 300 MG Capsule PO (02:27)
[2024-07-13 02:30] VITALS: BP 122/89; PULSE 64; RESP 18; TEMP 36.6; O2SAT 99
[2024-07-13 05:06] VITALS: BMI 21.6
[2024-07-13] MEDS: hydrOXYzine PAM 25 MG Capsule 50 MG PO (06:22)
[2024-07-13 07:56] VITALS: BP 127/94; PULSE 63; RESP 16; TEMP 36.3; O2SAT 100
[2024-07-13] MEDS: Dicyclomine 10 MG Capsule 20 MG PO (08:06)
[2024-07-13] MEDS: DULoxetine Hcl 30 MG Capsule PO (08:06)
[2024-07-13] MEDS: Ondansetron 8 MG Tablet PO (08:06)
[2024-07-13] MEDS: Thiamine Hydrochloride 100 MG Tablet PO (08:06)
[2024-07-13] MEDS: Folic Acid 1 MG Tablet PO (08:06)
[2024-07-13] MEDS: Loperamide 2 MG Capsule PO (08:06)
--- NOTE | 2024-07-13 09:23 | PCM.DC ---
Discharge Instructions Diet Discharge Diet: No restrictions DC O2, CPAP, BIPAP needs Home O2 Discharge instructions: No Dressing / Incision Discharge Activity: No Restrictions Follow Up Care Test Results: Test results from this visit will be discussed in further detail at your follow-up appointment, if applicable. Discharge Plan Admission Admit Date/Time: 07/10/24 20:26 Primary Reason for Your Visit: alcohol detox Attending Provider: Sanchez Whitfield Primary Care Provider: RYLIE WATTERS Consulting Providers: Yariel Burt; Darren Roberson Discharge Orders/Prescriptions Prescriptions: New duloxetine 30 mg Capsule,Delayed Release(Dr/Ec) 30 mg PO DAILY 30 Days Qty: 30 2RF No Action NK Referrals / Follow Up: RYLIE WATTERS [Other] RYLIE WATTERS [Other] Disposition Disposition (needs filled in before D/C Order can be placed): Home, Self Care
--- NOTE | 2024-07-13 09:23 | PCM.DC.SUM ---
Providers Date of Admission: 07/10/24 Date of Discharge: 07/13/24 Primary Care Physician: RYLIE WATTERS Reason For Visit: ETOH DETOX AND SUICIDAL IDEATION Diagnosis Discharge Diagnosis (1) Chronic alcohol abuse: Status: Chronic Code(s): F10.10 - Alcohol abuse, uncomplicated (2) Alcohol dependence with withdrawal: Status: Acute Code(s): F10.239 - Alcohol dependence with withdrawal, unspecified Medications at Discharge Home Medications duloxetine 30 mg capsule,delayed release 30 mg PO DAILY 30 days #30 caps 07/13/24 Hospital Course Operations None Procedures None Summary of Care Provided Minutes Spent on Discharge: 35 Hospital Course: Patient is a 48-year-old male who presented to [facility] ED on 07/10/2024 for alcohol withdrawal and request for detox. Hospital course as noted below. Patient discharged home in stable condition on 07/13. 1. Alcohol abuse with acute withdrawal and request for detoxification ? Addiction medicine following. Drinks at least 20 beers per day. Has been through detox here in the past. Alcohol level 403 on admit. Treated with phenobarbital taper and other as needed medications per alcohol withdrawal order set with good symptom control. Denied need for therapy on discharge; stated he had been through inpatient therapy and intensive outpatient therapy in the past and they were not helpful. Discharged home in stable condition on 07/13. 2. Poorly controlled depression/anxiety with reported suicidal ideation ? Case management followed. Patient reported passive suicidal ideation to staff so he was seen by Crisis; they determined that he was not a threat to himself and had no firearms at home so no need for psychiatric placement. Had been on medication for depression/anxiety in the past but recently was noncompliant with this. Started on low-dose Cymbalta and will continue this on discharge. Recommend close outpatient follow-up with PCP. 3. Chronic elevated LFTs ? Presumed secondary to alcohol abuse. No right upper quadrant pain noted. No need for abdominal imaging. Outpatient follow-up as needed. 4. Chronic thrombocytopenia ? Platelet count remained stable at baseline 85-100 during hospitalization. 5. Tobacco abuse ? NRT utilized while inpatient. Discussed cessation on discharge. 6. Cannabis abuse ? Discussed cessation on discharge. Total clinical time spent by myself addressing the patient's medical issues, reviewing all the data, and collaborating with patient's care team: 35 minutes. Physical Exam Const alert, oriented x3, no apparent distress and average body habitus General Appearance: cooperative and comfortable HEENT normocephalic, head/scalp atraumatic, hearing grossly normal bilaterally, nasal mucous membranes and turbinates normal and moist oral mucous membranes Eyes PERRL, EOMs intact bilaterally and conjunctivae normal Neck full ROM Chest inspection of chest normal Resp normal respiratory effort, normal air movement, no use of accessory muscles and clear to auscultation bilaterally Cardio regular rate, regular rhythm, no murmurs and peripheral pulses 2+ throughout GI normal to inspection, nondistended, normoactive bowel sounds, soft to palpation, non-tender and non-distended Back/Spine normal ROM Extremity normal to inspection, full ROM and no pedal edema Skin no rashes or lesions noted Psych mental status grossly normal Mood & Affect: anxious Weight / BMI Weight Weight: 64.8 kg Body Mass Index (BMI) 21.6 ABG / Lab / Microbiology Data 07/11/24 05:49 07/11/24 05:49 D/C Instructions DC O2, CPAP, BIPAP Needs Home O2 Discharge instructions: No Meaningful Use Info Meaningful Use Meaningful Use Diagnoses (Choose all that apply): None applicable Ischemic Stroke Statin Dosing Therapy Reference: STATIN DOSE THERAPY REFERENCE: * Patients > 75 years receive moderate or high dose statin therapy. * Patients 75 years or YOUNGER should receive HIGH intensity statin dose unless contraindicated. You will be required to document reason for non-treatment if statin daily dose does not meet guidelines. HIGH DOSE STATIN THERAPY DAILY Atorvastatin > than or = to 40 mg Rosuvastatin > than or = to 20 mg Amlodipine + Atorvastatin > than or = to 2.5/40 mg Ezetimibe + Simvastatin 10/80 mg Simvastatin 80mg Discharge Plan Admission Admit Date/Time: 07/10/24 20:26 Primary Reason for Your Visit: alcohol detox Attending Provider: Sanchez Whitfield Primary Care Provider: RYLIE WATTERS Consulting Providers: Yariel Burt; Darren Roberson Discharge Orders/Prescriptions Prescriptions: New duloxetine 30 mg Capsule,Delayed Release(Dr/Ec) 30 mg PO DAILY 30 Days Qty: 30 2RF Referrals / Follow Up: RYLIE WATTERS [Other] RYLIE WATTERS [Other] Disposition Disposition (needs filled in before D/C Order can be placed): Home, Self Care Charges/Coding Visit Charges Inpatient E&M: 56840 Disch Hosp >30min
--- NOTE | 2024-07-13 10:51 | PHA.DC.MC.R ---
Pharmacy [facility] Pharmacy Service has performed discharge medication reconciliation and counseling for this patient. 1. Duloxetine 30mg PO daily The patient's discharge medication list was reviewed for discrepancies and discrepancies were resolved. The patient was counseled on the following discharge medications and changes in medications for homegoing were reviewed. The Reason for Use, instructions for use, and potential side effects were reviewed for all new medications. The patient's questions regarding all of their medications were answered. The patient was able to verbally demonstrate an understanding of their discharge medications. Patient counseled by pharmacy coordinatorRiccardo. Medications at Discharge Home Medications duloxetine 30 mg capsule,delayed release 30 mg PO DAILY 30 days #30 caps 07/13/24
== END 2024-07-13 10:52 | disposition home or self-care (01) | DRG 897 ==
LOC: ED 20:34 → MS3 20:38
PROVIDERS: Internal Medicine; Admitting Provider Internal Medicine; Emergency Provider Emergency Medicine; Visit Provider Hospitalist
DX: F10.239 Alcohol dependence with withdrawal, unspecified (principal); R45.851 Suicidal ideations; D69.6 Thrombocytopenia, unspecified; I10 Essential (primary) hypertension; F32.A Depression, unspecified; F41.9 Anxiety disorder, unspecified; F17.210 Nicotine dependence, cigarettes, uncomplicated; Y90.8 Blood alcohol level of 240 mg/100 ml or more
CPT/HCPCS: 36415; 80053; 80061; 80307; 82077; 82607; 82746; 83036; 83735; 84100; 84443; 85025; 85610; 86703; 97802; 99285; A4216

== ENCOUNTER 2025-02-06 08:44 | Inpatient (IN) | payer MEDICARE, MEDICAID, SELFPAY ==
[2025-02-06] VITALS (10 sets, daily range): BP systolic 130–151; BP diastolic 85–108; PULSE 72–103; RESP 12–19; TEMP 36.3–37.1; O2SAT 94–99; BMI 21.7; BMI 20.8
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
[2025-02-06 09:23] LABS: Hematocrit 44.0 % (40-54); Hemoglobin 15.6 g/dL (13.0-16.5); Immature Granulocytes Count 0.010 X10^3/uL (0.0-0.0); Mean Corp Hgb Conc 35.5 g/dL (32-36); Mean Corpuscular Volume 90.7 fL (80-94); Mean Platelet Vol. 9.7 fl (6.2-12.0); NRBC Flagged by Analyzer 0 % (0-5); Platelet Count 107 K/mm3 (150-450); RBC Distribution Width CV 14.4 % (11.6-14.6); RBC Distribution Width SD 48.1 fl (35.1-43.9); Red Blood Count 4.85 M/mm3 (4.6-6.2); White Blood Count 5.1 K/mm3 (4.4-11.0)
--- OUTSIDE RECORDS SUMMARY | 2025-02-06 09:38 | XMS RPT_ITS | CCD ---
Author Organization [facility] Providers Care Human Services Worker Name Role Phone Unavailable Unavailable Unavailable Sandro Parker Unavailable Unavailable Sandro Parker Unavailable Unavailable CreasapSean WJoshua Unavailable Unavailable CreasaCoretta emersons WJoshua Unavailable Unavailable JIMI PAYNESEN Unavailable Unavailable JIMI PAYNESEN Unavailable Unavailable ROBINA RHOADES Unavailable Unavailable Lucio Roper Primary Care Provider Unavailable Primary Care Provider Unavailabl e Lucio Roper Primary Care Provider Nina De Jesus Unavailable Unavailable Rylie Gore Primary Care Provider Rylie Gore Primary Care Provider SANCHEZ LIEBERMAN Admitting SANCHEZ John Attending SANCHEZ John Consulting RYLIE Means Primary Care Unavailable JALIL FISHER Consulting Unavailable SANCHEZ LIEBERMAN Admitting SANCHEZ John Referring RYLIE Means Primary Care Unavailable Rylie Gore Unavailable Rylie Gore Primary Care Provider [phone] Lucio Roper Primary Care Provider [phone] Rylie Gore CNP Primary Care Provider Rylie Gore CNP Unavailable Nina De Jesus MA Unavailable Unavailable Rylie Gore CNP Primary Care Provider Rylie Gore CNP Primary Care Provider [phone] Sofía SALDAÑA, Rylie Dolly Unavailable Nina De Jesus MA Unavailable Unavailable Ricky Martell MD Unavailable RYLIE GORE Primary Care Unavailable RYLIE GORE Primary Care Unavailable VIAU, JALIL YOLI Admitting Unavailable VIAU, JALIL YOLI Referring Unavailable SOFÍA, RYLIE DOLLY Primary Care Unavailable CHOPKO, RICKY WOLODYMYR Admitting Unavail able CHOPKO, RICKY WOLODYMYR Referring Unavail able SOFÍA, RYLIE DOLLY Primary Care Unavailable CHOPKO, RICKY WOLODYMYR Admitting Unavail able CHOPKO, RICKY WOLODYMYR Referring Unavail able SOFÍA, RYLIE JUAREZE Primary Care Unavailable Ricky Martell MD Unavailable Nina De Jesus MA Unavailable Unavailable Sofía SWATCH CHECKER, Rylie Juareze Unavailable Sofía SALDAÑA, Rylie Alberto Primary Care Provider Gore PIPER, Rylie Juareze Unavailable [phone] Nina De Jesus MA Unavailable Unavailable Ricky Martell MD Unavailable Ricky Martell MD Unavailable Gore PIPER, Rylie Dolly Unavailable Nina De Jesus MA Unavailable Unavailable Ricky Martell MD Unavailable Ricky Martell MD Unavailable No, Physician Primary Care Provider Unavailabl RYLIE Marsh Attending Unavailable RYLIE HERNANDEZ Referring Unavailable RYLIE GOREE Primary Care Unavailable Gore PIPER, Rylie Dolly Primary Care Provider Debi Dawson CNP Primary Care Provider Sofía SALDAÑA, Rylie Dolly Primary Care Provider Margoth Cotter Unavailable Unavailable Gore HOLLOW WARE MAKER-SWATCH CHECKER, Rylie Primary Care Provider RYLEI GORE Primary Care Unavailable LUIS AMANDA Attending Unavailable SOFÍA RYLIE Primary Care Provider Dr. Masha Perdomo Emergency Provider Dr. Latasha Nye Admit Provider Dr. Latasha Nye Attending Provider Dr. Latasha Nye Other Provider Daniel Steen MD Unavailable [phone] Sofía SALDAÑA, Rylie Alberto Unavailable Jasbir CHOPRA, Ricky Maguire Unavailable Ricky Martell MD Unavailable Sofía SALDAÑA, Rylie Alberto Primary Care Provider Cathy Lozano RN Unavailable Unavailable No follow-up provider specified. Condition at Discharge: Stable Disposition: Home On day of discharge, I performed a final bedside evaluation including a physical exam. I reviewed discharge recommendations with the patient in person. Patient instructions, including activity, were given to the patient/family at discharge. Time spent on discharge: < 30 minutes Completed by: Lisa Cote on 03/05/23, 10:37 AM documented in this [id number] Note* Quick Note - Bharati Banegas RN - 03/05/2023 10:24 AM EST Seen by [facility] Patient received community resources. Transported to vehicle via wheelchairfor discharge to home. [id number] Miscellaneous Notes* Quick Note - Bharati Veliz RN - 03/05/2023 10:24 AM EST Seen by [facility] Patient received community resources. Transported to vehicle via wheelchairfor discharge to home. * Plan of Care - Myla Castillo RN - 03/05/2023 8:00 AM EST Problem: Actual or potential alteration in health Goal: Absence of healthcare acquired conditions Outcome: Completed Goal: Knowledge of Interdisciplinary Plan of Care Outcome: Completed Goal: Knowledge of Enviroment Outcome: Completed * Plan of Care - Liana William RN - 03/05/2023 6:37 AM EST Problem: Actual or potential alteration in health Goal: Absence of healthcare acquired conditions Outcome: Partially Met Goal: Knowledge of Interdisciplinary Plan of Care Outcome: Partially Met Goal: Knowledge of Enviroment Outcome: Partially Met Problem: Falls, Risk of Goal: Absence of falls Outcome: Partially Met Problem: Pain Goal: Manage acute pain Outcome: Partially Met Goal: Manage chronic pain Outcome: Partially Met Goal: Reduced pain sensation Outcome: Partially Met Goal: Achievement of comfort function goal Outcome: Partially Met * Quick Note - Liana William RN - 03/05/2023 6:32 AM EST Entered room, pt sitting up in bed took of gown and tele. Assisted to bathroom, voided and had liquid bm, was also incont in urine and a smear of stool. Dot care provided. Tele replaced and [place] on. Assisted back to bed, gait unsteady with visible tremors. CIWA performed, due for dose of Ativan. Ativan stock empty, placed call to pharmacy for restock. * Plan of Care - Lisa Lopez RN - 03/04/2023 6:48 PM EST Problem: Actual or potential alteration in health Goal: Absence of healthcare acquired conditions Outcome: Partially Met Goal: Knowledge of Interdisciplinary Plan of Care Outcome: Partially Met Goal: Knowledge of Enviroment Outcome: Partially Met Problem: Falls, Risk of Goal: Absence of falls Outcome: Partially Met Problem: Pain Goal: Manage acute pain Outcome: Partially Met Goal: Manage chronic pain Outcome: Partially Met Goal: Reduced pain sensation Outcome: Partially Met Goal: Achievement of comfort function goal Outcome: Partially Met * ED Procedure Note - Diaz Moreno MD - 03/04/2023 3:25 PM ESTAssociated Order(s): Critical Care Critical Care Performed by: Diaz Moreno MD Authorized by: Diaz Moreno MD Total critical care time: 40 minutes Critical care time was exclusive of separately billable procedures and treating other patients. Critical care was necessary to treat or prevent imminent or life-threatening deterioration of the following conditions: HOOP RIVETER failure or compromise, respiratory failure and toxidrome. Critical care was time spent personally by me on the following activities: development of treatmentplan with patient or surrogate, discussions with consultants, evaluation of patient's response to treatment, examination of patient, obtaining history from patient or surrogate, ordering and performing treatments and interventions, ordering and review of laboratory studies, ordering and review of radiographic studies, pulse oximetry, re-evaluation of patient's condition and review of old charts. * ED Procedure Note - Michelle Qiu CNP - 03/04/2023 3:08 PM ESTAssociated Order(s): ECG 12 Lead Pre-Procedure Diagnose(s): Chest pain, unspecified type ECG 12 Lead Date/Time: 03/04/2023 3:08 PM Performed by: Michelle Qiu CNP Authorized by: Rylie Gore CNP Interpreted by ED attending physician (Interpreted by Dr. Moreno) Rhythm: sinus rhythm BPM: 93 NH Interval: 93 QRS Interval: 90 QT Interval: 358 Clinical impression: normal ECG Comments: Interpreted by Dr. Moreno * ED Attestation Note - Diaz Moreno MD - 03/04/2023 9:14 AM EST ED Attestation: I have reviewed the Advanced Practice Provider's (TONE's) documentation. In addition, I have personally introduced myself to the patient, and have taken his history and performed an examination independent of the TONE. I did perform the substantive portion of this patient's medical care. I agree with the physical findings, management, clinical impression and disposition with the following clarifications and additions. In brief, Lon is a 47 y.o. male who presents with a chief complaint of Chest Pain. 47-year-old male, sent in by his PCPs office today for evaluation of chest pain. The patient statesthat he is an alcoholic, and last drink was last night. Per chart review, the PCPs office also had some concerns of possible beginning stages of alcohol withdrawal. In addition to the chest pain, he is also having some nausea and tremors. Brief PE: Patient is ill-appearing, minimally tremulous, but in no acute distress. Heart rate regular with regular rhythm. Lungs are clear to auscultation bilaterally. Skin is warm and dry. A/P: 1. Acute respiratory failure with hypoxia (HCC) 2. Pneumonia of left lower lobe due to infectious organism 3. Hypoxia 4. Alcohol withdrawal syndrome with complication (HCC) 5. Recurrent falls Agrees workup is reviewed for plan of care. Patient is found have pneumonia here, as well as some hypoxia, and he will need to be admitted for the same. Additionally, he is a daily drinker, and appears to have some tremors and is developing alcohol withdrawal. He started on CIWA protocol, and will be transition to phenobarbital when clinically appropriate. Will plan for admission to medicine service at this time. Diaz Moreno M.D. Attending Physician [facility] 03/04/2023 Portions of this note may have been dictated utilizing voice recognition software. Unfortunately this leads to occasional typographical errors. If questions arise please do not hesitate to contact emily for clarification. documented in this [id number] Note* Plan of Care - Myla Castillo RN - 03/05/2023 8:00 AM EST Problem: Actual or potential alteration in health Goal: Absence of healthcare acquired conditions Outcome: Completed Goal: Knowledge of Interdisciplinary Plan of Care Outcome: Completed Goal: Knowledge of Enviroment Outcome: Completed [id number] Note* Plan of Care - Liana William RN - 03/05/2023 6:37 AM EST Problem: Actual or potential alteration in health Goal: Absence of healthcare acquired conditions Outcome: Partially Met Goal: Knowledge of Interdisciplinary Plan of Care Outcome: Partially Met Goal: Knowledge of Enviroment Outcome: Partially Met Problem: Falls, Risk of Goal: Absence of falls Outcome: Partially Met Problem: Pain Goal: Manage acute pain Outcome: Partially Met Goal: Manage chronic pain Outcome: Partially Met Goal: Reduced pain sensation Outcome: Partially Met Goal: Achievement of comfort function goal Outcome: Partially Met [id number] Note* Quick Note - Liana William RN - 03/05/2023 6:32 AM EST Entered room, pt sitting up in bed took of gown and tele. Assisted to bathroom, voided and had liquid bm, was also incont in urine and a smear of stool. Dot care provided. Tele replaced and [place] on. Assisted back to bed, gait unsteady with visible tremors. CIWA performed, due for dose of Ativan. Ativan stock empty, placed call to pharmacy for restock. [id number] Note* Plan of Care - Lisa Lopez RN - 03/04/2023 6:48 PM EST Problem: Actual or potential alteration in health Goal: Absence of healthcare acquired conditions Outcome: Partially Met Goal: Knowledge of Interdisciplinary Plan of Care Outcome: Partially Met Goal: Knowledge of Enviroment Outcome: Partially Met Problem: Falls, Risk of Goal: Absence of falls Outcome: Partially Met Problem: Pain Goal: Manage acute pain Outcome: Partially Met Goal: Manage chronic pain Outcome: Partially Met Goal: Reduced pain sensation Outcome: Partially Met Goal: Achievement of comfort function goal Outcome: Partially Met [id number] Emergency department Note* Rosa Faulkner RN - 03/04/2023 5:30 PM EST Pt assisted in using bedside commode at this time, visitor remains at bedside. Pt to go upstairs once settles back in bed [id number] Emergency department Note* Rosa Faulkner RN - 03/04/2023 5:30 PM EST Pt assisted in using bedside commode at this time, visitor remains at bedside. Pt to go upstairs once settles back in bed * Rosa Faulkner RN - 03/04/2023 4:30 PM EST Report called at this time to floor * Katie Low RN - 03/04/2023 2:[address] Kam at patient's bedside assessing patient. This RN informed Dr. aKm that patient is c/o left-sided chest pain that is stabbing in nature thatstarted yesterday. Patient is rating his pain 6/10 (no radiation). * Mehreen Kenny RN - 03/04/2023 11:00 AM EST Hourly rounding assessment completed on the patient. [x] Patient updated on plan of care [x] All comfort needs addressed [] Patient updated on duration of visit All questions answered, patient denies further needs. Call light within reach. * Mehreen Kenny RN - 03/04/2023 10:00 AM EST Hourly rounding assessment completed on the patient. [x] Patient updated on plan of care [x] All comfort needs addressed [] Patient updated on duration of visit All questions answered, patient denies further needs. Call light within reach. * Mehreen Kenny RN - 03/04/2023 8:02 AM EST PT ARRIVES DUE TO CHEST PAIN THAT STARTED THIS MORNING. PT STATES HE FELL YESTERDAY AND TODAY DUE TO DIZZINESS. PT ALSO REPORT DRINKING 12 BEERS A DAY. PT ARRIVES WITH HEAVY TREMORS AND NAUSEA. * Michelle Qiu CNP - 03/04/2023 7:54 AM EST ED PROVIDER NOTE [facility] NAME: Lon Burks AGE: 47 y.o. : 1975 VISIT DATE: 03/04/2023 CSN: [id number] PCP: Rylie Gore CNP Chief Complaint Patient presents with Chest Pain Patient was referred to this ED by his primary care provider Rylie Gore for evaluation of chest pain shortness of breath lightheadedness chills and nausea that began this morning. Past Medical History: Diagnosis Date Alcohol abuse Anxiety Back pain Bleeding ulcer Cirrhosis (HCC) Depression Fractures GERD (gastroesophageal reflux disease) HL (hearing loss) Past Surgical History: Procedure Laterality Date HARDWARE REMOVAL LOWER EXTREMITY Right 04/28/2020 Procedure: SCREW REMOVAL RIGHT LEG; Surgeon: Jalil Fisher MD; Location: [facility] OR; Service:Orthopedic LAMINECTOMY DECOMP THORACIC W/ FUSION SINGLE LEVEL Bilateral 08/03/2021 Procedure: T9-10 Laminectomy, Removal and replacement of Spinal Cord Stimulator and right flank IPG, T10 Laminoplasty and Fusion; Surgeon: Ricky Martell MD; Location: [facility]; Service: Neurological LAMINECTOMY DECOMPRESSION LUMBAR 3 LEVELS Bilateral 02/20/2022 Procedure: LAMINECTOMY DECOMPRESSION LUMBAR 3 LEVELS; Surgeon: Ricky Martell MD; Location: [facility]; Service: Neurological ORIF TIBIAL PLATEAU Right 01/16/2020 Procedure: OPEN REDUCTION INTERNAL FIXATION TIBIAL PLATEAU; Surgeon: Jalil Fisher MD; Location: [facility]; Service: Orthopedic PAIN PUMP TRIAL N/A 09/05/2022 Procedure: INSERTION PAIN PUMP TRIAL; Surgeon: Jalil Hager DO; Location: [facility]; Service: Pain Management SPINAL CORD STIMULATOR PERMANENT Bilateral 12/02/2020 Procedure: T10 Laminectomy, insertion of dorsal column spinal cord stimulator electrode(s) and right flank IPG insertion; Surgeon: Ricky Martell MD; Location: [facility]; Service: Neurological SPINAL CORD STIMULATOR PERMANENT Bilateral 08/03/2021 Procedure: Removal and replacement of Spinal Cord Stimulator and right flank IPG; Surgeon: Ricky Martell MD; Location: [facility]; Service: Neurological SPINAL CORD STIMULATOR PERMANENT N/A 02/20/2022 Procedure: T9-T10 Laminectoy, Removal REtained SCS, Removal of right Flank IPG, Right L3/4, Right L5/S1 Laminectomies, insertion of DRG Electrodes; Surgeon: Ricky Martell MD; Location: [facility]; Service: Neurological SPINAL CORD STIMULATOR TEMPORARY Bilateral 11/15/2020 Procedure: Bilateral percutaneous insertion of trial spinal cord stimulator electrode(s) via L1-L2 Approach, fluoroscopic directed.; Surgeon: Ricky Martell MD; Location: [facility]; Service: Neurological Family History Problem Relation Age of Onset No Known Problems Mother No Known Problems Father No Known Problems Brother Clotting disorder Neg Hx Heart disease Neg Hx Social History Socioeconomic History Marital status: Single Tobacco Use Smoking status: Every Day Packs/day: 1.00 Years: 20.00 Additional pack years: 0.00 Total pack years: 20.00 Types: Cigarettes Smokeless tobacco: Never Vaping Use Vaping Use: Never used Substance and Sexual Activity Alcohol use: Yes Alcohol/week: 84.0 standard drinks of alcohol Types: 84 Cans of beer per week Comment: 30 beers a day for 20 + years. Drug use: Yes Types: Marijuana Comment: " a joint a day" Social History Narrative Merged History Encounter Social Determinants of Health Financial Resource Strain: Low Risk (03/23/2022) Overall Financial Resource Strain (CARDIA) Difficulty of Paying Living Expenses: Not hard at all Food Insecurity: No Food Insecurity (03/23/2022) Hunger Vital Sign Worried About Running Out of Food in the Last Year: Never true Ran Out of Food in the Last Year: Never true Transportation Needs: No Transportation Needs (03/23/2022) PRAPARE - Transportation Lack of Transportation (Medical): No Lack of Transportation (Non-Medical): No Physical Activity: Inactive (03/23/2022) Exercise Vital Sign Days of Exercise per Week: 0 days Minutes of Exercise per Session: 0 min Stress: Stress Concern Present (03/23/2022) [place] [employer] - Occupational Stress Questionnaire Feeling of Stress : To some extent Social Connections: Socially Isolated (03/23/2022) Social Connection and Isolation Panel [NHANES] Frequency of Communication with Friends and Family: More than three times a week Frequency of Social Gatherings with Friends and Family: More than three times a week Attends Jew Services: Never Active Member of Clubs or Organizations: No Attends Club or Organization Meetings: Never Marital Status: Never Housing Stability: Unknown (03/23/2022) Housing Stability Vital Sign Unable to Pay for Housing in the Last Year: No Number of Places Lived in the Last Year: 1 Previous Medications Medication Sig cloNIDine HCL (CATAPRES) 0.1 MG tablet Take 1 (one) tablet (0.1 mg total) by mouth 2 (two) times a day Hold if SBP 110 or below . (Patient not taking: Reported on 03/04/2023 .) hydrOXYzine (VISTARIL) 50 MG capsule Take 1 (one) capsule (50 mg total) by mouth every 6 (six) hours as needed for anxiety . (Patient not taking: Reported on 03/04/2023 .) multivitamin,therapeutic (THERA-TABS ORAL) Take 1 tablet by mouth daily . ondansetron (ZOFRAN) 4 MG tablet Take 1 (one) tablet (4 mg total) by mouth every 4 (four) hours as needed for nausea . Allergies Allergen Reactions No Known Allergies Review of Systems Constitutional: Positive for chills and fatigue. Respiratory: Positive for shortness of breath. Negative for cough. Cardiovascular: Positive for chest pain. Negative for palpitations and leg swelling. Gastrointestinal: Positive for abdominal pain and nausea. Negative for diarrhea and vomiting. Genitourinary: Negative. Musculoskeletal: Positive for back pain (Chronic, but nothing new). Skin: Negative. Neurological: Positive for tremors and light-headedness. Negative for dizziness, seizures, syncope,facial asymmetry, speech difficulty, weakness, numbness and headaches. Psychiatric/Behavioral: Negative for confusion. Patient Vitals for the past 24 hrs: BP Temp Temp src Pulse Resp SpO2 03/04/23 1105 125/81 -- -- (!) 103 -- -- 03/04/23 1100 125/81 -- -- 99 (!) 20 90 % 03/04/23 0930 118/79 -- -- (!) 109 (!) 19 95 % 03/04/23 0900 120/81 -- -- (!) 103 16 92 % 03/04/23 0833 136/86 -- -- 99 15 93 % 03/04/23 0804 (!) 145/67 -- -- 86 -- -- 03/04/23 0745 (!) 145/67 98 F (36.7 C) Oral 88 16 (!) 88 % Physical Exam Constitutional: Comments: Chronically ill-appearing HENT: Head: Normocephalic and atraumatic. Mouth/Throat: Mouth: Mucous membranes are moist. Pharynx: Oropharynx is clear. Eyes: Conjunctiva/sclera: Conjunctivae normal. Pupils: Pupils are equal, round, and reactive to light. Cardiovascular: Rate and Rhythm: Normal rate and regular rhythm. Pulses: Normal pulses. Heart sounds: Normal heart sounds. Musculoskeletal: General: Normal range of motion. Cervical back: Normal range of motion and neck supple. No tenderness. Comments: M AE x 4. Neurovascularly intact. PPP x 4. Pulmonary: Effort: Pulmonary effort is normal. Breath sounds: Normal breath sounds. Abdominal: General: Bowel sounds are normal. Palpations: Abdomen is soft. Tenderness: There is abdominal tenderness. Skin: General: Skin is warm and dry. Capillary Refill: Capillary refill takes less than 2 seconds. Findings: Ecchymosis (left f/a, left elbow) present. Neurological: General: No focal deficit present. Mental Status: He is alert and oriented to person, place, and time. . Laboratory & Radiographic Imaging (if done): Results for orders placed or performed during the hospital encounter of 03/04/23 COVID-19/Influenza A,B Molecular Specimen: Nasopharyngeal; Swab Result Value Ref Range SARS-CoV-2 Not Detected Not Detected Influenza A Not Detected Not Detected Influenza B Not Detected Not Detected Alcohol, Medical Result Value Ref Range Alcohol (Medical) 303.40 (H) <10.00 mg/dL BMP Result Value Ref Range Sodium 140 135 - 145 mmol/L Potassium 4.0 3.5 - 5.1 mmol/L Chloride 103 98 - 108 mmol/L Bicarbonate 25 21 - 32 mmol/L Anion Gap 16 10 - 20 mmol/L Glucose 102 (H) 65 - 99 mg/dL BUN 4 (L) 8 - 25 mg/dL Creatinine 0.80 0.50 - 1.30 mg/dL eGFR 111 >=60 mL/min/1.73 m2 BUN/Creatinine Ratio 5.0 (L) 10.0 - 20.0 Calcium 8.2 (L) 8.4 - 10.2 mg/dL D-Dimer, Quantitative Result Value Ref Range D-Dimer 2.35 (H) 0.27 - 0.49 mcg/mL FEU Hepatic Function Panel (LFT) Result Value Ref Range Total Protein 8.3 (H) 6.0 - 8.0 g/dL Albumin 4.1 3.2 - 5.2 g/dL Total Bilirubin 0.5 0.0 - 1.3 mg/dL Bilirubin, Direct 0.2 0.0 - 0.4 mg/dL Alkaline Phosphatase 123 40 - 150 U/L AST 115 (H) 0-50 U/L U/L ALT 77 (H) 14 - 65 U/L Lipase Result Value Ref Range Lipase 58 13-75 U/L U/L Troponin Result Value Ref Range Troponin I 4 <=59 ng/L Troponin I Interpretation Normal PT/INR Result Value Ref Range Protime (PT) 12.7 11.8 - 14.3 seconds INR 1.0 0.8 - 1.1 Urinalysis Result Value Ref Range Color, Urine Yellow Colorless, Yellow Clarity, Urine Clear Clear Specific [place] >1.050 (H) 1.005 - 1.025 pH, Urine 6.5 5.0 - 7.0 Protein, Urine Negative Negative mg/dL Glucose, Urine Negative Negative mg/dL Ketones, Urine Trace (A) Negative mg/dL Bilirubin, Urine Negative Negative Urobilinogen, Urine <2.0 <2.0 mg/dL Blood, Urine Negative Negative Nitrite, Urine Negative Negative Leukocyte Esterase, Urine Negative Negative WBCs, Urine <1 0 - 5 /hpf RBCs, Urine <1 0 - 3 /hpf Bacteria, Urine None Seen None Seen /hpf Mucus, Urine Rare None Seen, Rare /lpf Urine Drug Screen Result Value Ref Range Amphetamine Screen, Urine None Detected None Detected Barbiturate Screen, Urine None Detected None Detected Benzodiazepine Screen, Urine None Detected None Detected Cannabinoid Screen, Urine Presumptive Positive (A) None Detected Cocaine, Screen Urine None Detected None Detected Methadone Screen, Urine None Detected None Detected Opiate Screen, Urine None Detected None Detected Oxycodone Screen, Urine None Detected None Detected Buprenorphine, Ur None Detected None Detected Fentanyl, Ur None Detected None Detected Magnesium Level Result Value Ref Range Magnesium 2.0 1.6 - 2.4 mg/dL CBC Auto Differential Result Value Ref Range WBC 14.26 (H) 4.50 - 11.00 K/mcL RBC 4.72 4.50 - 5.90 M/mcL Hemoglobin 14.7 13.5 - 17.5 g/dL Hematocrit 43.0 41.0 - 53.0 % MCV 91.1 80.0 - 100.0 fL MCH 31.1 26.0 - 34.0 pg MCHC 34.2 31.0 - 37.0 g/dL Platelets 105 (L) 150 - 400 K/mcL RDW - CV 14.6 11.6 - 14.8 % MPV 9.7 9.4 - 12.4 fL Neutrophils 87.7 % Lymphocytes 5.0 % Monocytes 6.1 % Eosinophils 0.2 % Basophils 0.3 % IG Percent 0.70 % Neutrophils Abs 12.51 (H) 1.70 - 7.00 K/mcL Lymphocytes Abs 0.71 (L) 0.90 - 4.00 K/mcL Monocytes Abs 0.87 0.30 - 0.90 K/mcL Eosinophils Abs 0.03 0.00 - 0.50 K/mcL Basophils Abs 0.04 0.00 - 0.30 K/mcL IG Absolute 0.10 0.00 - 0.30 K/mcL Nucleated RBC 0.0 % Nucleated RBC Abs 0.00 0.00 - 0.00 K/mcL CT Lumbar Spine Reconstructed Final Result 1. No acute intracranial process 2. No acute fracture or malalignment of the cervical, thoracic or lumbar spine. Workstation ID: [id number] CT Thoracic Spine Reconstructed Final Result 1. No acute intracranial process 2. No acute fracture or malalignment of the cervical, thoracic or lumbar spine. Workstation ID: [id number] CTA Pulm Art and CT Abd Pelvis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 No Clinical Summary Lon Burks is a 47 y.o. male patient of Rylie Gore CNP with history of alcohol dependence presented to [facility] with alcohol withdrawal. Alcohol withdrawal syndrome: Treated with CIWA protocol and vitamins in addition to hydration, symptoms improved, discharge on clonidine, Atarax and Topamax, refill was provided Discharge Medications Discharge Medications Medications To Continue Details acetaminophen 500 MG tablet Commonly known as: TYLENOL Take 1 (one) tablet (500 mg total) by mouth every 4 (four) hours as needed . cloNIDine HCL 0.1 MG tablet Commonly known as: CATAPRES Take 1 (one) tablet (0.1 mg total) by mouth 2 (two) times a day Hold if SBP 110 or below . Quantity: 60 tablet dicyclomine 20 mg tablet Commonly known as: BENTYL Take 1 (one) tablet (20 mg total) by mouth every 6 (six) hours as needed Reasons: stomach cramps. hydrOXYzine 50 MG capsule Commonly known as: VISTARIL Take 1 (one) capsule (50 mg total) by mouth every 6 (six) hours as needed for anxiety . Quantity: 30 capsule ibuprofen 600 MG tablet Commonly known as: ADVIL,MOTRIN Take 1 (one) tablet (600 mg total) by mouth every 8 (eight) hours as needed for pain . melatonin 5 mg Tab Take 1 (one) tablet (5 mg total) by mouth nightly . ondansetron 4 MG tablet Commonly known as: ZOFRAN Take 1 (one) tablet (4 mg total) by mouth every 4 (four) hours as needed for nausea . pantoprazole 40 MG tablet Commonly known as: PROTONIX Take 1 (one) tablet (40 mg total) by mouth daily . THERA-TABS ORAL Take 1 tablet by mouth daily . topiramate 50 MG tablet Commonly known as: TOPAMAX Take 1 (one) tablet (50 mg total) by mouth 2 (two) times a day . Quantity: 60 tablet traZODone 50 MG tablet Commonly known as: DESYREL Take 1 (one) tablet (50 mg total) by mouth nightly as needed . Stopped Medications PHENobarbitaL 30 MG tablet Commonly known as: LUMINAL Physician(s) Follow Up: Rylie Gore, SWATCH CHECKER [address] [facility] [address] Follow up Daniel Steen MD [address] [facility] [address] Schedule an appointment as soon as possible for a visit Condition at Discharge: Stable Disposition: Home I reviewed discharge recommendations with the patient in person. Patient instructions, including activity, were given to the patient/family at discharge. On day of discharge I saw Lon Burks and spent: > 30 minutes on discharge. Completed by: Nikki Carson on 10/03/22, 1:18 PM documented in this [id number] History of Present illness Narrative* Stacy Goetz - 10/02/2022 9:15 AM EDT Spiritual Care Progress Note Completed by: Stacy Goetz Person(s) Present During this Visit: Patient Time Spent in Direct Patient Care: 30 Narrative: While rounding on SHAILESH returned case inspector introduced self and role as a part of ongoing emotional and spiritual support. 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 He shared that he feels upset because he left his recovery program yesterday to go home and take care of some business an see his pup. When he returned to the program he was told he could not get back in. He shared that he started feeling weird and unsure what was going on so he came to the hospital. He shared of his desire to get back into the recovery program, [facility]. Information regarding pastoral care services and how to contact was provided. Pt received a pohne call and ended the visit. No family present. Chaplains will remain available to support patient as needed/requested. Patients Response to Pastoral Care: Appeared to be well-engaged, Expressed Gratitude for Visit Planning for Future Visits: Pt aware to contact Faculty Research Physician as needed Stacy Goetz MDiv Staff Faculty Research Physician Pastoral Care Department [facility] [phone] on-call [phone] office documented in this [id number] History and physical note* Cherise Aldridge MD - 10/02/2022 2:40 AM EDT [facility] Patient Name: Lon Burks : 1975 MR #: [id number] Admit Date: 10/01/2022 Physicians: Rylie Gore CNP (Family); No ref. provider found (Referring) Lon Burks is a 47 y.o. male patient of Rylie Gore CNP with history of alcohol dependence presented to [facility] with alcohol withdrawal. Alcohol withdrawal syndrome: Ciwa protocol Banana bag Thiamine, folic acid, MVI Residence prior to admission: house or apartment Was patient transferred from outlying hospital or ED no Quality Measures DVT Prophylaxis: lovenox Yang Catheter: absent Medication Reconciliation: Verified Risk variables present on admission: None. Please see assessment and plan for further details. Code Status Full Code; code status verified on 09/26/2022 with patient (capacity intact) Chief Complaint alcohol withdrawal History of Present Illness Lon Burks is a 47 y.o. male patient of Rylie Gore CNP with history of alcohol dependence presented to [facility] with alcohol withdrawal. he was dc from [facility] 09/28 to alcohol rehab but he signed out AMA on Saturday. Comes in to ed with tremors and hallucinations Last drink 7 days ago He has h/o alcohol withdrawal seizures in the past Heis being readmitted. Past Medical History Past Medical History: Diagnosis Date Alcohol abuse Anxiety Back pain Bleeding ulcer Cirrhosis (HCC) Depression Fractures GERD (gastroesophageal reflux disease) HL (hearing loss) Past Surgical History Past Surgical History: Procedure Laterality Date HARDWARE REMOVAL LOWER EXTREMITY Right 04/28/2020 Procedure: SCREW REMOVAL RIGHT LEG; Surgeon: Jalil Fisher MD; Location: Main OR; Service:Orthopedic LAMINECTOMY DECOMP THORACIC W/ FUSION SINGLE LEVEL Bilateral 08/03/2021 Procedure: T9-10 Laminectomy, Removal and replacement of Spinal Cord Stimulator and right flank IPG, T10 Laminoplasty and Fusion; Surgeon: Ricky Martell MD; Location: Main OR; Service: Neurological LAMINECTOMY DECOMPRESSION LUMBAR 3 LEVELS Bilateral 02/20/2022 Procedure: LAMINECTOMY DECOMPRESSION LUMBAR 3 LEVELS; Surgeon: Ricky Martell MD; Location: Main OR; Service: Neurological ORIF TIBIAL PLATEAU Right 01/16/2020 Procedure: OPEN REDUCTION INTERNAL FIXATION TIBIAL PLATEAU; Surgeon: Jalil Fisher MD; Location: Main OR; Service: Orthopedic PAIN PUMP TRIAL N/A 09/05/2022 Procedure: INSERTION PAIN PUMP TRIAL; Surgeon: Jalil Hager DO; Location: Main OR; Service: Pain Management SPINAL CORD STIMULATOR PERMANENT Bilateral 12/02/2020 Procedure: T10 Laminectomy, insertion of dorsal column spinal cord stimulator electrode(s) and right flank IPG insertion; Surgeon: Ricky Martell MD; Location: Main OR; Service: Neurological SPINAL CORD STIMULATOR PERMANENT Bilateral 08/03/2021 Procedure: Removal and replacement of Spinal Cord Stimulator and right flank IPG; Surgeon: Ricky Martell MD; Location: Main OR; Service: Neurological SPINAL CORD STIMULATOR PERMANENT N/A 02/20/2022 Procedure: T9-T10 Laminectoy, Removal REtained SCS, Removal of right Flank IPG, Right L3/4, Right L5/S1 Laminectomies, insertion of DRG Electrodes; Surgeon: Ricky Martell MD; Location: Main OR; Service: Neurological SPINAL CORD STIMULATOR TEMPORARY Bilateral 11/15/2020 Procedure: Bilateral percutaneous insertion of trial spinal cord stimulator electrode(s) via L1-L2 Approach, fluoroscopic directed.; Surgeon: Ricky Martell MD; Location: Main OR; Service: Neurological Family History Family History Problem Relation Age of Onset No Known Problems Mother No Known Problems Father No Known Problems Brother Clotting disorder Neg Hx Heart disease Neg Hx Social History Social History Tobacco Use Smoking Status Every Day Packs/day: 1.00 Years: 20.00 Total pack years: 20.00 Types: Cigarettes Smokeless Tobacco Never Social History Substance and Sexual Activity Alcohol Use Yes Alcohol/week: 84.0 standard drinks of alcohol Types: 84 Cans of beer per week Comment: 30 beers a day for 20 + years. Social History Substance and Sexual Activity Drug Use Yes Types: Marijuana Comment: " a joint a day" Allergy Information I have reviewed the patient's allergies. No known allergies Home Medications Home medications were reviewed. Review Of Systems All relevant systems have been reviewed and are negative except as noted in HPI or below Physical Examination BP 101/80 Pulse (!) 48 Temp 98.2 F (36.8 C) (Oral) Resp 14 Wt 63.5 kg (140 lb) SpO2 98% BMI 21.29 kg/m General Appearance: alert; chronically ill appearing; in moderate acute distress HEENT: Head- normocephalic; Eyes- EOMI, sclera anicteric; Throat- mucous membranes moist Cardiovascular: regular rate and rhythm; normal S1, S2; no murmurs, rubs, clicks or gallops; peripheral edema absent Respiratory: lungs clear to auscultation; without wheezes, rales or rhonchi; on room air Abdomen: soft, non-tender, non-distended Neurological: oriented x 2; normal speech; no focal findings or movement disorder noted Musculoskeletal: no significant deformity or tenderness to palpation Skin: normal coloration Psych: normal mood and affect [id number] History and physical note* Cherise Aldridge MD - 10/02/2022 2:40 AM EDT [facility] Patient Name: Lon Burks : 1975 MR #: [id number] Admit Date: 10/01/2022 Physicians: Rylie Gore CNP (Family); No ref. provider found (Referring) Lon Burks is a 47 y.o. male patient of Rylie Gore CNP with history of alcohol dependence presented to [facility] with alcohol withdrawal. Alcohol withdrawal syndrome: Ciwa protocol Banana bag Thiamine, folic acid, MVI Residence prior to admission: house or apartment Was patient transferred from outlying hospital or ED no Quality Measures DVT Prophylaxis: lovenox Yang Catheter: absent Medication Reconciliation: Verified Risk variables present on admission: None. Please see assessment and plan for further details. Code Status Full Code; code status verified on 09/26/2022 with patient (capacity intact) Chief Complaint alcohol withdrawal History of Present Illness Lon Burks is a 47 y.o. male patient of Rylie Gore CNP with history of alcohol dependence presented to [facility] with alcohol withdrawal. he was dc from [facility] 09/28 to alcohol rehab but he signed out AMA on Saturday. Comes in to ed with tremors and hallucinations Last drink 7 days ago He has h/o alcohol withdrawal seizures in the past Heis being readmitted. Past Medical History Past Medical History: Diagnosis Date Alcohol abuse Anxiety Back pain Bleeding ulcer Cirrhosis (HCC) Depression Fractures GERD (gastroesophageal reflux disease) HL (hearing loss) Past Surgical History Past Surgical History: Procedure Laterality Date HARDWARE REMOVAL LOWER EXTREMITY Right 04/28/2020 Procedure: SCREW REMOVAL RIGHT LEG; Surgeon: Jalil Fisher MD; Location: Main OR; Service:Orthopedic LAMINECTOMY DECOMP THORACIC W/ FUSION SINGLE LEVEL Bilateral 08/03/2021 Procedure: T9-10 Laminectomy, Removal and replacement of Spinal Cord Stimulator and right flank IPG, T10 Laminoplasty and Fusion; Surgeon: Ricky Martell MD; Location: Main OR; Service: Neurological LAMINECTOMY DECOMPRESSION LUMBAR 3 LEVELS Bilateral 02/20/2022 Procedure: LAMINECTOMY DECOMPRESSION LUMBAR 3 LEVELS; Surgeon: Ricky Martell MD; Location: Main OR; Service: Neurological ORIF TIBIAL PLATEAU Right 01/16/2020 Procedure: OPEN REDUCTION INTERNAL FIXATION TIBIAL PLATEAU; Surgeon: Jalil Fisher MD; Location: Main OR; Service: Orthopedic PAIN PUMP TRIAL N/A 09/05/2022 Procedure: INSERTION PAIN PUMP TRIAL; Surgeon: Jalil Hager DO; Location: Main OR; Service: Pain Management SPINAL CORD STIMULATOR PERMANENT Bilateral 12/02/2020 Procedure: T10 Laminectomy, insertion of dorsal column spinal cord stimulator electrode(s) and right flank IPG insertion; Surgeon: Ricky Martell MD; Location: Main OR; Service: Neurological SPINAL CORD STIMULATOR PERMANENT Bilateral 08/03/2021 Procedure: Removal and replacement of Spinal Cord Stimulator and right flank IPG; Surgeon: Ricky Martell MD; Location: Main OR; Service: Neurological SPINAL CORD STIMULATOR PERMANENT N/A 02/20/2022 Procedure: T9-T10 Laminectoy, Removal REtained SCS, Removal of right Flank IPG, Right L3/4, Right L5/S1 Laminectomies, insertion of DRG Electrodes; Surgeon: Ricky Martell MD; Location: Main OR; Service: Neurological SPINAL CORD STIMULATOR TEMPORARY Bilateral 11/15/2020 Procedure: Bilateral percutaneous insertion of trial spinal cord stimulator electrode(s) via L1-L2 Approach, fluoroscopic directed.; Surgeon: Ricky Martell MD; Location: Main OR; Service: Neurological Family History Family History Problem Relation Age of Onset No Known Problems Mother No Known Problems Father No Known Problems Brother Clotting disorder Neg Hx Heart disease Neg Hx Social History Social History Tobacco Use Smoking Status Every Day Packs/day: 1.00 Years: 20.00 Total pack years: 20.00 Types: Cigarettes Smokeless Tobacco Never Social History Substance and Sexual Activity Alcohol Use Yes Alcohol/week: 84.0 standard drinks of alcohol Types: 84 Cans of beer per week Comment: 30 beers a day for 20 + years. Social History Substance and Sexual Activity Drug Use Yes Types: Marijuana Comment: " a joint a day" Allergy Information I have reviewed the patient's allergies. No known allergies Home Medications Home medications were reviewed. Review Of Systems All relevant systems have been reviewed and are negative except as noted in HPI or below Physical Examination BP 101/80 Pulse (!) 48 Temp 98.2 F (36.8 C) (Oral) Resp 14 Wt 63.5 kg (140 lb) SpO2 98% BMI 21.29 kg/m General Appearance: alert; chronically ill appearing; in moderate acute distress HEENT: Head- normocephalic; Eyes- EOMI, sclera anicteric; Throat- mucous membranes moist Cardiovascular: regular rate and rhythm; normal S1, S2; no murmurs, rubs, clicks or gallops; peripheral edema absent Respiratory: lungs clear to auscultation; without wheezes, rales or rhonchi; on room air Abdomen: soft, non-tender, non-distended Neurological: oriented x 2; normal speech; no focal findings or movement disorder noted Musculoskeletal: no significant deformity or tenderness to palpation Skin: normal coloration Psych: normal mood and affect documented in this [id number] Physician Emergency department Note* Nu Fortune MD - 10/02/2022 1:09 AM EDT [facility] ATTENDING NOTE: NAME: Lon Burks CSN: [id number] 47 y.o. PCP: Rylie Gore CNP History: Chief Complaint: Alcohol Problem and Hallucinations HPI: The history was obtained from the patient. Lon is a 47 y.o. male with a history of alcohol dependence, DTs, and withdrawal seizures who presents with a chief complaint of Alcohol Problem and Hallucinations. He states that he is having visual hallucinations. He sees trailing shadows and floaters for the past 2 hours. This is identical to previous episodes of DTs. He has been having tremors on and off since 9 AM today. His last alcohol intake was 6 days ago. He states that he left [facility] inpatient detox facility on Saturday because he needed to make phone calls to find out about getting his morphine pump placed. He did not use any alcohol or recreational drugs when he left. When he started experiencing tremors, he tried to go back to [facility], but they would not take him back. He states that he took a dose of his "seizure medicine" with no improvement prior to arrival. PMHx: Past Medical History: Diagnosis Date Alcohol abuse Anxiety Back pain Bleeding ulcer Cirrhosis (HCC) Depression Fractures GERD (gastroesophageal reflux disease) HL (hearing loss) PMSx: Past Surgical History: Procedure Laterality Date HARDWARE REMOVAL LOWER EXTREMITY Right 04/28/2020 Procedure: SCREW REMOVAL RIGHT LEG; Surgeon: Jalil Fisher MD; Location: Main OR; Service:Orthopedic LAMINECTOMY DECOMP THORACIC W/ FUSION SINGLE LEVEL Bilateral 08/03/2021 Procedure: T9-10 Laminectomy, Removal and replacement of Spinal Cord Stimulator and right flank IPG, T10 Laminoplasty and Fusion; Surgeon: Ricky Martell MD; Location: Main OR; Service: Neurological LAMINECTOMY DECOMPRESSION LUMBAR 3 LEVELS Bilateral 02/20/2022 Procedure: LAMINECTOMY DECOMPRESSION LUMBAR 3 LEVELS; Surgeon: Ricky Martell MD; Location: Main OR; Service: Neurological ORIF TIBIAL PLATEAU Right 01/16/2020 Procedure: OPEN REDUCTION INTERNAL FIXATION TIBIAL PLATEAU; Surgeon: Jalil Fisher MD; Location: Main OR; Service: Orthopedic PAIN PUMP TRIAL N/A 09/05/2022 Procedure: INSERTION PAIN PUMP TRIAL; Surgeon: Jalil Hager DO; Location: Main OR; Service: Pain Management SPINAL CORD STIMULATOR PERMANENT Bilateral 12/02/2020 Procedure: T10 Laminectomy, insertion of dorsal column spinal cord stimulator electrode(s) and right flank IPG insertion; Surgeon: Ricky Martell MD; Location: Main OR; Service: Neurological SPINAL CORD STIMULATOR PERMANENT Bilateral 08/03/2021 Procedure: Removal and replacement of Spinal Cord Stimulator and right flank IPG; Surgeon: Ricky Martell MD; Location: Main OR; Service: Neurological SPINAL CORD STIMULATOR PERMANENT N/A 02/20/2022 Procedure: T9-T10 Laminectoy, Removal REtained SCS, Removal of right Flank IPG, Right L3/4, Right L5/S1 Laminectomies, insertion of DRG Electrodes; Surgeon: Ricky Martell MD; Location: Main OR; Service: Neurological SPINAL CORD STIMULATOR TEMPORARY Bilateral 11/15/2020 Procedure: Bilateral percutaneous insertion of trial spinal cord stimulator electrode(s) via L1-L2 Approach, fluoroscopic directed.; Surgeon: Ricky Martell MD; Location: Main OR; Service: Neurological FAM. Hx: Family History Problem Relation Age of Onset No Known Problems Mother No Known Problems Father No Known Problems Brother Clotting disorder Neg Hx Heart disease Neg Hx SOC. Hx: Social History Socioeconomic History Marital status: Single Tobacco Use Smoking status: Every Day Packs/day: 1.00 Years: 20.00 Total pack years: 20.00 Types: Cigarettes Smokeless tobacco: Never Vaping Use Vaping Use: Never used Substance and Sexual Activity Alcohol use: Yes Alcohol/week: 84.0 standard drinks of alcohol Types: 84 Cans of beer per week Comment: 30 beers a day for 20 + years. Drug use: Yes Types: Marijuana Comment: " a joint a day" Social History Narrative Merged History Encounter Social Determinants of Health Financial Resource Strain: Low Risk (03/23/2022) Overall Financial Resource Strain (CARDIA) Difficulty of Paying Living Expenses: Not hard at all Food Insecurity: No Food Insecurity (03/23/2022) Hunger Vital Sign Worried About Running Out of Food in the Last Year: Never true Ran Out of Food in the Last Year: Never true Transportation Needs: No Transportation Needs (03/23/2022) PRAPARE - Transportation Lack of Transportation (Medical): No Lack of Transportation (Non-Medical): No Physical Activity: Inactive (03/23/2022) Exercise Vital Sign Days of Exercise per Week: 0 days Minutes of Exercise per Session: 0 min Stress: Stress Concern Present (03/23/2022) [employer] [place] [employer] - Occupational Stress Questionnaire Feeling of Stress : To some extent Social Connections: Socially Isolated (03/23/2022) Social Connection and Isolation Panel [NHANES] Frequency of Communication with Friends and Family: More than three times a week Frequency of Social Gatherings with Friends and Family: More than three times a week Attends Jew Services: Never Active Member of Clubs or Organizations: No Attends Club or Organization Meetings: Never Marital Status: Never Housing Stability: Unknown (03/23/2022) Housing Stability Vital Sign Unable to Pay for Housing in the Last Year: No Number of Places Lived in the Last Year: 1 MEDs: Previous Medications Medication Sig acetaminophen (TYLENOL) 500 MG tablet Take 1 (one) tablet (500 mg total) by mouth every 4 (four) hours as needed . cloNIDine HCL (CATAPRES) 0.1 MG tablet Take 1 (one) tablet (0.1 mg total) by mouth 2 (two) times a day Hold if SBP 110 or below . dicyclomine (BENTYL) 20 mg tablet Take 1 (one) tablet (20 mg total) by mouth every 6 (six) hours asneeded Reasons: stomach cramps. hydrOXYzine (VISTARIL) 50 MG capsule Take 1 (one) capsule (50 mg total) by mouth every 6 (six) hours as needed for anxiety . ibuprofen (ADVIL,MOTRIN) 600 MG tablet Take 1 (one) tablet (600 mg total) by mouth every 8 (eight) hours as needed for pain . melatonin 5 mg Tab Take 1 (one) tablet (5 mg total) by mouth nightly . multivitamin,therapeutic (THERA-TABS ORAL) Take 1 tablet by mouth daily . ondansetron (ZOFRAN) 4 MG tablet Take 1 (one) tablet (4 mg total) by mouth every 4 (four) hours as needed for nausea . pantoprazole (PROTONIX) 40 MG tablet Take 1 (one) tablet (40 mg total) by mouth daily . [] PHENobarbitaL (LUMINAL) 30 MG tablet Take by mouth See Admin Instructions Take 60 mg q6H for 4 doses, then Take 60 mg q8H for 3 doses, then Take 60 mg q12H for 2 doses, then Tahe 30 mg q12H for 2 doses . topiramate (TOPAMAX) 50 MG tablet Take 1 (one) tablet (50 mg total) by mouth 2 (two) times a day . traZODone (DESYREL) 50 MG tablet Take 1 (one) tablet (50 mg total) by mouth nightly as needed . ALL: Allergies Allergen Reactions No Known Allergies ROS: Review of Systems Constitutional: Negative for chills, fever and unexpected weight change. HENT: Negative for ear pain, rhinorrhea and sore throat. Eyes: Negative for pain, redness and visual disturbance. Respiratory: Negative for cough, shortness of breath and wheezing. Cardiovascular: Negative for chest pain, palpitations and leg swelling. Gastrointestinal: Negative for abdominal pain, constipation, diarrhea, nausea and vomiting. Genitourinary: Negative for dysuria, hematuria and urgency. Musculoskeletal: Negative for arthralgias and joint swelling. Skin: Negative for rash. Neurological: Positive for tremors. Negative for dizziness, seizures and headaches. Psychiatric/Behavioral: Positive for hallucinations. Negative for suicidal ideas. All other systems reviewed and are negative. Positives and pertinent negatives as per HPI. All other systems were reviewed and are negative. Physical Exam: Patient Vitals for the past 24 hrs: BP Temp Temp src Pulse Resp SpO2 Height Weight 10/02/22 1350 105/72 -- -- 74 15 98 % -- -- 10/02/22 1115 95/68 98 F (36.7 C) Oral (!) 57 14 98 % -- -- 10/02/22 0820 -- -- -- -- 13 -- -- -- 10/02/22 0720 100/66 98.4 F (36.9 C) Axillary (!) 54 14 98 % -- -- 10/02/22 0500 111/87 -- -- 66 -- -- -- -- 10/02/22 0447 -- -- -- -- 14 -- -- -- 10/02/22 0425 111/ 97.9 F (36.6 C) Oral 72 -- -- 5' 8" 68.1 kg (150 lb 2.1 oz) 10/02/22 0400 102/84 -- -- 70 15 97 % -- -- 10/02/22 0330 101/78 -- -- (!) 49 14 98 % -- -- 10/02/22 0300 104/78 -- -- (!) 53 14 98 % -- -- 10/02/22 0230 102/74 -- -- (!) 48 14 98 % -- -- 10/02/22 0200 -- -- -- (!) 50 14 98 % -- -- 10/02/22 0130 101/80 -- -- 61 17 98 % -- -- 10/02/22 0100 100/73 -- -- (!) 58 15 98 % -- -- 10/02/22 0030 120/84 -- -- 75 17 98 % -- -- 10/02/22 0000 106/77 -- -- 64 17 96 % -- -- 10/01/22 2331 (!) 111/97 -- -- 88 -- -- -- -- 10/01/22 2328 (!) 127/108 98.2 F (36.8 C) Oral 93 (!) 24 99 % -- 63.5 kg (140 lb) Physical Exam Vitals reviewed. Constitutional: Appearance: Normal appearance. He is well-developed. HENT: Head: Normocephalic and atraumatic. Nose: Nose normal. Mouth/Throat: Mouth: Mucous membranes are moist. Pharynx: Uvula midline. Eyes: General: No scleral icterus. Extraocular Movements: Extraocular movements intact. Pupils: Pupils are equal, round, and reactive to light. Cardiovascular: Rate and Rhythm: Normal rate and regular rhythm. Pulses: Normal pulses. Heart sounds: Normal heart sounds. Musculoskeletal: General: No tenderness. Cervical back: Neck supple. No rigidity. Pulmonary: Effort: Pulmonary effort is normal. Breath sounds: Normal breath sounds. Abdominal: General: Bowel sounds are normal. Palpations: Abdomen is soft. Abdomen is not rigid. There is no pulsatile mass. Tenderness: There is no abdominal tenderness. There is no guarding or rebound. Skin: General: Skin is warm and dry. Capillary Refill: Capillary refill takes less than 2 seconds. Neurological: General: No focal deficit present. Mental Status: He is alert and oriented to person, place, and time. Cranial Nerves: No cranial nerve deficit. Sensory: No sensory deficit. Motor: Tremor present. No weakness. Coordination: Coordination normal. Deep Tendon Reflexes: Reflexes are normal and symmetric. Psychiatric: Attention and Perception: Attention and perception normal. Mood and Affect: Mood is anxious. Speech: Speech normal. Behavior: Behavior is cooperative. Thought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 08/27/2022 Complex regional pain syndrome type 1 of both lower extremities 09/05/2022 Alcohol withdrawal syndrome, uncomplicated ([facility]) 09/26/2022 Resolved Ambulatory Problems Diagnosis Date Noted Drug addiction ([facility]) 12/26/2017 Alcohol withdrawal ([facility]) 08/08/2018 Alcohol dependence, uncomplicated ([facility]) 11/04/2018 Past Medical History: Diagnosis Date Alcohol abuse Anxiety Back pain Bleeding ulcer Cirrhosis ([facility]) Depression Fractures GERD (gastroesophageal reflux disease) HL (hearing loss) ED MEDICATIONS GIVEN: Medications LORazepam (ATIVAN) tablet 1-4 mg (3 mg Oral Given 10/02/22 1355) Or LORazepam (ATIVAN) injection 1-4 mg ( Intramuscular See Alternative 10/02/22 1355) Or LORazepam (ATIVAN) injection 1-4 mg ( Intravenous See Alternative 10/02/22 1355) cloNIDine HCL (CATAPRES) tablet 0.1 mg (0.1 mg Oral Not Given 10/02/22 1400) topiramate (TOPAMAX) tablet 50 mg (50 mg Oral Given 10/02/22 0817) traZODone (DESYREL) tablet 50 mg (has no administration in time range) pantoprazole (PROTONIX) EC tablet 40 mg (40 mg Oral Given 10/02/22 0820) sodium chloride (PF) (NS) flush 5 mL (has no administration in time range) And sodium chloride (PF) (NS) flush 5 mL (5 mL Intravenous Given 10/02/22 1400) And sodium chloride 0.9% (NS) (has no administration in time range) docusate sodium (COLACE) capsule 100 mg (100 mg Oral Given 10/02/22 0818) ondansetron (ZOFRAN-ODT) disintegrating tablet 4 mg (has no administration in time range) senna (SENOKOT) tablet 8.6 mg (has no administration in time range) melatonin Tab 5 mg (has no administration in time range) nitroGLYCERIN (NITROSTAT) SL tablet 0.4 mg (has no administration in time range) aluminum-magnesium hydroxide-simethicone (MAALOX PLUS) 200-200-20 mg/5 mL suspension 30 mL (has no administration in time range) dextrose 5 % and sodium chloride 0.45 % infusion ( Intravenous Rate/Dose Verify 10/02/22 1353) enoxaparin (LOVENOX) syringe 40 mg (40 mg Subcutaneous Given 10/02/22 0818) acetaminophen (TYLENOL) tablet 650 mg (650 mg Oral Given 10/02/22 0447) lidocaine patch 1 patch (1 patch Transdermal Patch Applied 10/02/22 0814) nicotine (NICODERM CQ) 21 mg/24 hr 1 patch (1 patch Transdermal Patch Applied 10/02/22 0816) sodium chloride 0.9 % 1,000 mL with mvi, adult no.4 with vit K 10 mL, thiamine 100 mg, folic acid 1mg infusion (150 mL/hr Intravenous New Bag 10/02/22 0106) After reviewing the items above, I did look at previous medical documentation, such as recent hospitalizations, office visits, and/or recent consultations with PCP/specialist. SDOH: Another factor that I considered in Lon's care was his Social Determinants of Health (SDOH).During this ED encounter, he DID have issues that complicated the ED care today which included chemical dependency (drugs and/or alcohol). LAB TESTING: Ancillary lab testing: Chem-7 does not reveal significant acute abnormality. Urinalysis is normal. Drugs of abuse screen is positive for barbiturates and cannabis. LFTs are normal. Ammonia is slightly high at 53 CBC does not reveal significant acute abnormality. Magnesium is normal. Alcohol is negative. TSH is normal. Coags are normal. RADIOLOGY: I did consider radiological studies for Lon's care today: Not emergently indicated DIFFERENTIAL DIAGNOSES: Some general clinical impressions that I considered included alcohol withdrawal ED COURSE: I spoke with the hospitalist for admission for DTs. Symptoms improved in the emergency department with Ativan. Based on the medication and/or treatment that our team has rendered to this patient, their medical condition has improved. I recognize that there are risks with hospitalization (such as nosocomial infections, falls, thromboembolic disease, etc) as well as being discharged (worsening of condition, including cardiopulmonary arrest). However, in my medical opinion with the clinical information available to me at the time of this decision, I believe the best disposition for Lon is hospitalize to CVSD/ISD. Clinical Impression: 1. Alcohol dependence with withdrawal with perceptual disturbance (HCC) Disposition: ED Disposition ED Disposition Hospitalize Condition -- Comment Reason for inpatient over two midnights: ,, New Prescriptions This print group is not available in inpatient encounters. Please contact a collection systems administrator. Nu Fortune MD ED Attending Physician [facility] (Please note that portions of this note have been completed with a voice recognition software. Efforts were made to correct any errors, but occasionally words are mis-transcribed.) Nu Fortune MD 10/02/22 1402 * Elke Leonard RN - 10/02/2022 12:29 AM EDT Patient came by [facility] via [facility]. He tells this nurse that he use to be a heavy alcoholic & He just checked himself in last week to a detox center. His symptoms got so bad however they sent him here to the hospital he was admitted for three days & then sent back to [facility]. He states that he left today "Saturday" to follow up with his upcoming back procedure. He then went home. He lives with his mom & he said he started " With drawling again tonliliya." He denies drinking any alcohol. He is tremor ing & saying he is having Visual & Auditory hallucinations. He denies being Suicidal or homicidal. He only admits to smoking Mariaaustin cardoso for his back pain. He states he has still not drank alcohol since his previous last admission * Bettina Rojas RN - 10/01/2022 11:27 PM EDT Patient reports "alcohol withdraw with hallucinations. Last alcohol beverage was 6 days ago" * Elke Leonard RN - 10/01/2022 10:57 PM EDT Bed: 28 Expected date: Expected time: Means of arrival: Comments: Ai documented in this [id number] Emergency department Triage note* Elke Leonard RN - 10/02/2022 12:29 AM EDT Patient came by [facility] via [facility]. He tells this nurse that he use to be a heavy alcoholic & He just checked himself in last week to a detox center. His symptoms got so bad however they sent him here to the hospital he was admitted for three days & then sent back to [facility]. He states that he left today "Saturday" to follow up with his upcoming back procedure. He then went home. He lives with his mom & he said he started " With drawling again tonight." He denies drinking any alcohol. He is tremor ing & saying he is having Visual & Auditory hallucinations. He denies being Suicidal or homicidal. He only admits to smoking Mariajuana tonight for his back pain. He states he has still not drank alcohol since his previous last admission [id number] Emergency department Triage note* Bettina Rojas RN - 10/01/2022 11:27 PM EDT Patient reports "alcohol withdraw with hallucinations. Last alcohol beverage was 6 days ago" [id number] Emergency department Note* Elke Leonard RN - 10/01/2022 10:57 PM EDT Bed: 28 Expected date: Expected time: Means of arrival: Comments: Ai [id number] History of Present illness Narrative* Oslie, Venessa, SOFTWARE INTEGRATION DEVELOPER CLASSIFICATION INSPECTOR - 09/28/2022 12:14 PM EDT Care Management Progress Note Date: 09/28/2022 Time: 12:14 PM Patient Name: Lon Burks Date of : 1975 Discharge Plan: Discharging Transportation Plan: Discharge Plan Status: Patient discharging to the [facility] today, then going to [facility]. * Stacy Goetz - 09/27/2022 1:30 PM EDT Spiritual Care Progress Note Completed by: Stacy Goetz Person(s) Present During this Visit: Patient Not Available Time Spent in Direct Patient Care: 5 Narrative: Faculty Research Physician attempted to visit patient while rounding on the unit in order to offer spiritual/emotional support. Patient was sleeping. No family present. The Pastoral Care team will remain available to support patient PRN. Patients Response to Pastoral Care: Timing of Visit Not Optimal. Visit Rescheduled Planning for Future Visits: PRN Stacy Goetz MDiv Staff Faculty Research Physician Pastoral Care Department [facility] [phone] on-call [phone] office 09/27/22 1330 Visit Background Visit With Patient Not Available Visit By Staff Faculty Research Physician Visit Progression Attempt Visit Requested By Faculty Research Physician Initiated Visit Source Faculty Research Physician Initiated Visit Type Inpatient;Rounding Visit Circumstances and Events Routine Visit Visit Length (minutes) 5 Patient's Response to Pastoral Care Timing of Visit Not Optimal. Visit Rescheduled Visit Planning PRN Spiritual Assessment Unable to Assess during this visit Jew Assessment Unable to Assess during this visit Family assessment provided? Unable to asess during this visit * Jt Alfredo MD - 09/27/2022 1:14 PM EDT [facility] [place] Assessment and Plan Lon Burks is a 47 y.o. male patient of Rylie Gore CNP with history of alcohol dependence presented to [facility] with alcohol withdrawal. Alcohol withdrawal syndrome Phenobarb taper Banana bag Thiamine, folic acid, MVI Addiction medicine consulted Disposition Estimated Discharge Date: 1-2 days Discharge Location: tbd Outpatient Testing: Quality Measures DVT Prophylaxis: lovenox Yang Catheter: absent Code Status Full Code; code status verified on 09/27/2022 with patient (capacity intact) Primary Contact Information Subjective Patient lying in bed no distress eating breakfast. Noted some mild hand tremors. Objective BP 135/83 Pulse 66 Temp 97.9 F (36.6 C) (Oral) Resp 17 Ht 5' 8" Wt 52.3 kg (115 lb 3.2 oz) SpO2 95% BMI 17.52 kg/m Physical Examination General Appearance: alert; chronically ill appearing; in no acute distress HEENT: Head- normocephalic; Eyes- EOMI, sclera anicteric; Throat- mucous membranes moist Cardiovascular: regular rate and rhythm; normal S1, S2; no murmurs, rubs, clicks or gallops; peripheral edema absent Respiratory: lungs clear to auscultation; without wheezes, rales or rhonchi; on room air Abdomen: soft, non-tender, non-distended Neurological: oriented x 3; normal speech; no focal findings or movement disorder noted Mild bilateral hand tremors noted Musculoskeletal: no significant deformity or tenderness to palpation Skin: normal coloration Psych: normal mood and affect documented in this [id number] Hospital course Narrative* Jt Alfredo MD - 09/28/2022 10:52 AM EDT [facility] [place] -- [facility] Lon Burks Admitted: 09/26/2022 Discharge Date: 09/28/22 PCP Handoff Recommended Outpatient Testing none Results Pending At Discharge none Clinical Summary Assessment and Plan Lon Burks is a 47 y.o. male patient of Rylie Gore CNP with history of alcohol dependence presented to [facility] with alcohol withdrawal. Alcohol withdrawal syndrome Received Phenobarb taper Banana bag Thiamine, folic acid, MVI Addiction medicine consulted- recs appreciated Plan for discharge back to withdrawal unit today Malnutrition BMI 17.52 Encouraged on increasing calories and alcohol cessation Discharge Medications Discharge Medications Medications To Continue Details acetaminophen 500 MG tablet Commonly known as: TYLENOL Take 1 (one) tablet (500 mg total) by mouth every 4 (four) hours as needed . cloNIDine HCL 0.1 MG tablet Commonly known as: CATAPRES Take 1 (one) tablet (0.1 mg total) by mouth 2 (two) times a day Hold if SBP 110 or below . dicyclomine 20 mg tablet Commonly known as: BENTYL Take 1 (one) tablet (20 mg total) by mouth every 6 (six) hours as needed Reasons: stomach cramps. hydrOXYzine 50 MG capsule Commonly known as: VISTARIL Take 1 (one) capsule (50 mg total) by mouth every 6 (six) hours as needed for anxiety . ibuprofen 600 MG tablet Commonly known as: ADVIL,MOTRIN Take 1 (one) tablet (600 mg total) by mouth every 8 (eight) hours as needed for pain . melatonin 5 mg Tab Take 1 (one) tablet (5 mg total) by mouth nightly . ondansetron 4 MG tablet Commonly known as: ZOFRAN Take 1 (one) tablet (4 mg total) by mouth every 4 (four) hours as needed for nausea . pantoprazole 40 MG tablet Commonly known as: PROTONIX Take 1 (one) tablet (40 mg total) by mouth daily . PHENobarbitaL 30 MG tablet Commonly known as: LUMINAL Take by mouth See Admin Instructions Take 60 mg q6H for 4 doses, then Take 60 mg q8H for 3 doses, then Take 60 mg q12H for 2 doses, then Tahe 30 mg q12H for 2 doses . THERA-TABS ORAL Take 1 tablet by mouth daily . topiramate 50 MG tablet Commonly known as: TOPAMAX Take 1 (one) tablet (50 mg total) by mouth 2 (two) times a day . traZODone 50 MG tablet Commonly known as: DESYREL Take 1 (one) tablet (50 mg total) by mouth nightly as needed . Stopped Medications baclofen 10 MG tablet Commonly known as: LIORESAL Physician(s) Follow Up: Rylie Gore, SWATCH CHECKER [address] [facility] [place] [id number] Follow up Follow up with PCP when out of rehab Condition at Discharge: stable Disposition: Home I reviewed discharge recommendations with the patient in person. Patient instructions, including activity, were given to the patient/family at discharge. On day of discharge I saw Lon Burks and spent: > 30 minutes on discharge. Completed by: Jt Alfredo on 09/28/22, 10:52 AM documented in this [id number] Consult note* Daniel Steen MD - 09/28/2022 9:47 AM EDT Addiction Medicine Progress note Patient Name: Lon Burks Admit Date: [id number] MR #: [id number] : 1975 Physicians: Rylie Gore CNP (Family); Daniel Steen MD (referring) Principal Problem: Alcohol withdrawal syndrome, uncomplicated (HCC) 09/28/22 - Patient seen in 2122 and feeling better but still weak. Slowly getting appetite back. Knows he needs to stay sober to get the pain pump as pain is what keeps making him go backwards to drinking. Had 3 day trial that worked well and working thru insurancce and staying sober to get permanent Says he can get back with his mom if sober and has a 72 friend Julianne that gets him to meetings Slowly feeling stronger 09/27/22 - Patient seen in room 2122. Admits to having a problem with alcohol for many years. Statesdrinking about 6 beers/day. Last drink was yesterday around 1300. He then went to the [facility] and then was sent to the hospital due to his withdrawal symptoms. He reports his motivation for quitting is aback surgery that he wants to get and his grand kids. He has been in treatment in the past. Longestsobriety was about 10 years ago when he [facility]. Reports he stayed sober for abouta month after and then got overwhelmed and started drinking again. He has been to [facility] inthe past. Has been to [facility] with [facility] for [facility] (about 2 years ago). He does a pain stimulator that he states he wants taken out because he doesn't not feel that it works. Recommend contacting Dr Hathaway to look into his stimulator. He is malnurished. This could be related to his alcohol use howevercannot rule out other etiologies with his significant weight loss and might need to look into otherreasons. He does admit to not eating well at home when he was drinking, although he does have an tone etite while in hospital. Alcohol Problem Assessment and Plan ALCOHOL WITHDRAWAL WITH MALNUTRITION Patient is interested in getting to [facility] for 30 days or so to be strengthened tohave the permanent pain pump placed as he needs to be sober for it to be placed. Arrangments made for him to go back to the Withdrawal Unit today by 1pm else Saturday between 10 and 11 am. And then to [facility] on Saturday. PLEASE CALL [phone] TO COORDINATE. If he changes his mind then he needs to get back in with [facility]. Arrange medical follow up with Rlyie Gore for general medical care and also with [facility] (myself or Lucy Marcos). Also arrange to get back with Dr Hager once proving he can stay sober. Might need PT exercise plan for home Will continue campral and low dose topiramate. Not a naltrexone candidate due to striving for healthy enough for pain pump with morphine Substance use history and other relevant social history please see initial consult note and social history section OARRS/NARx reviewed since admission .Discussed with the primary admitting team. Patient is making an informed decision. Available medical records reviewed. Answered patient's questions. Disposition: As per primary team. Assessment Detail: Reason for Consult: Medical management of alcohol use disorder. Medical management of alcohol withdrawal symptoms. Subjective: Alcohol withdrawal symptoms as per review of system For details on substance use history and other relevant social history please see initial consult note and social history section. Social History Socioeconomic History Marital status: Single Tobacco Use Smoking status: Every Day Packs/day: 1.00 Years: 20.00 Total pack years: 20.00 Types: Cigarettes Smokeless tobacco: Never Vaping Use Vaping Use: Never used Substance and Sexual Activity Alcohol use: Yes Alcohol/week: 84.0 standard drinks of alcohol Types: 84 Cans of beer per week Comment: 30 beers a day for 20 + years. Drug use: Yes Types: Marijuana Comment: " a joint a day" Social History Narrative Merged History Encounter Social Determinants of Health Financial Resource Strain: Low Risk (03/23/2022) Overall Financial Resource Strain (CARDIA) Difficulty of Paying Living Expenses: Not hard at all Food Insecurity: No Food Insecurity (03/23/2022) Hunger Vital Sign Worried About Running Out of Food in the Last Year: Never true Ran Out of Food in the Last Year: Never true Transportation Needs: No Transportation Needs (03/23/2022) PRAPARE - Transportation Lack of Transportation (Medical): No Lack of Transportation (Non-Medical): No Physical Activity: Inactive (03/23/2022) Exercise Vital Sign Days of Exercise per Week: 0 days Minutes of Exercise per Session: 0 min Stress: Stress Concern Present (03/23/2022) [place] [employer] - Occupational Stress Questionnaire Feeling of Stress : To some extent Social Connections: Socially Isolated (03/23/2022) Social Connection and Isolation Panel [NHANES] Frequency of Communication with Friends and Family: More than three times a week Frequency of Social Gatherings with Friends and Family: More than three times a week Attends Jew Services: Never Active Member of Clubs or Organizations: No Attends Club or Organization Meetings: Never Marital Status: Never Housing Stability: Unknown (03/23/2022) Housing Stability Vital Sign Unable to Pay for Housing in the Last Year: No Number of Places Lived in the Last Year: 1 Past Medical History: Diagnosis Date Alcohol abuse Anxiety Back pain Bleeding ulcer Cirrhosis (HCC) Depression Fractures GERD (gastroesophageal reflux disease) HL (hearing loss) Past Surgical History: Procedure Laterality Date HARDWARE REMOVAL LOWER EXTREMITY Right 04/28/2020 Procedure: SCREW REMOVAL RIGHT LEG; Surgeon: Jalil Fisher MD; Location: Main OR; Service:Orthopedic LAMINECTOMY DECOMP THORACIC W/ FUSION SINGLE LEVEL Bilateral 08/03/2021 Procedure: T9-10 Laminectomy, Removal and replacement of Spinal Cord Stimulator and right flank IPG, T10 Laminoplasty and Fusion; Surgeon: Rciky Martell MD; Location: Main OR; Service: Neurological LAMINECTOMY DECOMPRESSION LUMBAR 3 LEVELS Bilateral 02/20/2022 Procedure: LAMINECTOMY DECOMPRESSION LUMBAR 3 LEVELS; Surgeon: Ricky Martell MD; Location: Main OR; Service: Neurological ORIF TIBIAL PLATEAU Right 01/16/2020 Procedure: OPEN REDUCTION INTERNAL FIXATION TIBIAL PLATEAU; Surgeon: Jalil Fisher MD; Location: Main OR; Service: Orthopedic PAIN PUMP TRIAL N/A 09/05/2022 Procedure: INSERTION PAIN PUMP TRIAL; Surgeon: Jalil Hager DO; Location: Main OR; Service: Pain Management SPINAL CORD STIMULATOR PERMANENT Bilateral 12/02/2020 Procedure: T10 Laminectomy, insertion of dorsal column spinal cord stimulator electrode(s) and right flank IPG insertion; Surgeon: Ricky Martell MD; Location: Main OR; Service: Neurological SPINAL CORD STIMULATOR PERMANENT Bilateral 08/03/2021 Procedure: Removal and replacement of Spinal Cord Stimulator and right flank IPG; Surgeon: Ricky Martell MD; Location: Main OR; Service: Neurological SPINAL CORD STIMULATOR PERMANENT N/A 02/20/2022 Procedure: T9-T10 Laminectoy, Removal REtained SCS, Removal of right Flank IPG, Right L3/4, Right L5/S1 Laminectomies, insertion of DRG Electrodes; Surgeon: Ricky Martell MD; Location: Main OR; Service: Neurological SPINAL CORD STIMULATOR TEMPORARY Bilateral 11/15/2020 Procedure: Bilateral percutaneous insertion of trial spinal cord stimulator electrode(s) via L1-L2 Approach, fluoroscopic directed.; Surgeon: Ricky Martell MD; Location: Main OR; Service: Neurological Family History Problem Relation Age of Onset No Known Problems Mother No Known Problems Father No Known Problems Brother Clotting disorder Neg Hx Heart disease Neg Hx Psychiatric History: Please see initial consult note for more details. Allergy Information: I have reviewed the patient's allergies. No known allergies Home Medications: No current outpatient medications on file as of 09/28/2022. Review of Systems: The following system(s) were reviewed and pertinent findings noted: Review of Systems All other systems reviewed and are negative. Physical Examination: Vital Signs: BP 122/80 Pulse 71 Temp 98.4 F (36.9 C) (Oral) Resp 16 Ht 5' 8" Wt 52.3 kg (115 lb 3.2 oz) SpO2 94% BMI 17.52 kg/m Physical Exam Vitals and nursing note reviewed. Constitutional: General: He is not in acute distress. Appearance: He is well-developed. He is not diaphoretic. HENT: Head: Normocephalic and atraumatic. Eyes: General: No scleral icterus. Conjunctiva/sclera: Conjunctivae normal. Pupils: Pupils are equal, round, and reactive to light. Cardiovascular: Rate and Rhythm: Normal rate and regular rhythm. Pulmonary: Effort: Pulmonary effort is normal. Musculoskeletal: General: Normal range of motion. Cervical back: Neck supple. Skin: General: Skin is warm and dry. Neurological: General: No focal deficit present. Mental Status: He is alert and oriented to person, place, and time. Psychiatric: Behavior: Behavior normal. Laboratory and Additional Data Reviewed: Laboratory 09/28/22 10:17 AM Medications 09/28/22 10:17 AM Transcriptions 09/28/22 10:17 AM Recent Results (from the past 24 hour(s)) Drugs of Abuse Screen, Urine Collection Time: 09/27/22 11:54 AM Result Value Ref Range Amphetamine Screen, Urine None Detected None Detected Barbiturate Screen, Urine Presumptive Positive (A) None Detected Benzodiazepine Screen, Urine None Detected None Detected Cannabinoid Screen, Urine Presumptive Positive (A) None Detected Cocaine, Screen Urine None Detected None Detected Methadone Screen, Urine None Detected None Detected Opiate Screen, Urine None Detected None Detected Oxycodone Screen, Urine None Detected None Detected Buprenorphine, Ur None Detected None Detected Fentanyl, Ur None Detected None Detected Assessment Detail: The total time spent for this visit was 65 TO 70 minutes. Greater than 50% of the time was spent incounseling and coordination of care. Daniel Steen MD This note was dictated using voice-recognition software for expedited communication. Please kindly excuse any typos or mis-recognized words. [employer] Work Phone: [phone] Consult note* aDniel Steen MD - 09/28/2022 9:47 AM EDT Addiction Medicine Progress note Patient Name: Lon Burks Admit Date: [id number] MR #: [id number] : 1975 Physicians: Rylie Gore CNP (Family); Daniel Steen MD (referring) Principal Problem: Alcohol withdrawal syndrome, uncomplicated (HCC) 09/28/22 - Patient seen in 2122 and feeling better but still weak. Slowly getting appetite back. Knows he needs to stay sober to get the pain pump as pain is what keeps making him go backwards to drinking. Had 3 day trial that worked well and working thru insurancce and staying sober to get permanent Says he can get back with his mom if sober and has a 72 friend Julianne that gets him to meetings Slowly feeling stronger 09/27/22 - Patient seen in room 2122. Admits to having a problem with alcohol for many years. Statesdrinking about 6 beers/day. Last drink was yesterday around 1300. He then went to the [facility] and then was sent to the hospital due to his withdrawal symptoms. He reports his motivation for quitting is aback surgery that he wants to get and his grand kids. He has been in treatment in the past. Longestsobriety was about 10 years ago when [facility]. Reports he stayed sober for abouta month after and then got overwhelmed and started drinking again. He has been to [facility] inthe past. Has been to [facility] for [facility]OD (about 2 years ago). He does a pain stimulator that he states he wants taken out because he doesn't not feel that it works. Recommend contacting Dr Hathaway to look into his stimulator. He is malnurished. This could be related to his alcohol use howevercannot rule out other etiologies with his significant weight loss and might need to look into otherreasons. He does admit to not eating well at home when he was drinking, although he does have an tone etite while in hospital. Alcohol Problem Assessment and Plan ALCOHOL WITHDRAWAL WITH MALNUTRITION Patient is interested in getting to [facility] for 30 days or so to be strengthened tohave the permanent pain pump placed as he needs to be sober for it to be placed. Arrangments made for him to go back to [facility] today by 1pm else Saturday between 10 and 11 am. And then to [facility] on Saturday. PLEASE CALL [phone] TO COORDINATE. If he changes his mind then he needs to get back in with [facility]. Arrange medical follow up with Rylie Gore for general medical care and also with [facility] (myself or Lucy Marcos). Also arrange to get back with Dr Hager once proving he can stay sober. Might need PT exercise plan for home Will continue campral and low dose topiramate. Not a naltrexone candidate due to striving for healthy enough for pain pump with morphine Substance use history and other relevant social history please see initial consult note and social history section OARRS/NARx reviewed since admission .Discussed with the primary admitting team. Patient is making an informed decision. Available medical records reviewed. Answered patient's questions. Disposition: As per primary team. Assessment Detail: Reason for Consult: Medical management of alcohol use disorder. Medical management of alcohol withdrawal symptoms. Subjective: Alcohol withdrawal symptoms as per review of system For details on substance use history and other relevant social history please see initial consult note and social history section. Social History Socioeconomic History Marital status: Single Tobacco Use Smoking status: Every Day Packs/day: 1.00 Years: 20.00 Total pack years: 20.00 Types: Cigarettes Smokeless tobacco: Never Vaping Use Vaping Use: Never used Substance and Sexual Activity Alcohol use: Yes Alcohol/week: 84.0 standard drinks of alcohol Types: 84 Cans of beer per week Comment: 30 beers a day for 20 + years. Drug use: Yes Types: Marijuana Comment: " a joint a day" Social History Narrative Merged History Encounter Social Determinants of Health Financial Resource Strain: Low Risk (03/23/2022) Overall Financial Resource Strain (CARDIA) Difficulty of Paying Living Expenses: Not hard at all Food Insecurity: No Food Insecurity (03/23/2022) Hunger Vital Sign Worried About Running Out of Food in the Last Year: Never true Ran Out of Food in the Last Year: Never true Transportation Needs: No Transportation Needs (03/23/2022) PRAPARE - Transportation Lack of Transportation (Medical): No Lack of Transportation (Non-Medical): No Physical Activity: Inactive (03/23/2022) Exercise Vital Sign Days of Exercise per Week: 0 days Minutes of Exercise per Session: 0 min Stress: Stress Concern Present (03/23/2022) [employer] [place] [employer] - Occupational Stress Questionnaire Feeling of Stress : To some extent Social Connections: Socially Isolated (03/23/2022) Social Connection and Isolation Panel [NHANES] Frequency of Communication with Friends and Family: More than three times a week Frequency of Social Gatherings with Friends and Family: More than three times a week Attends Jew Services: Never Active Member of Clubs or Organizations: No Attends Club or Organization Meetings: Never Marital Status: Never Housing Stability: Unknown (03/23/2022) Housing Stability Vital Sign Unable to Pay for Housing in the Last Year: No Number of Places Lived in the Last Year: 1 Past Medical History: Diagnosis Date Alcohol abuse Anxiety Back pain Bleeding ulcer Cirrhosis (HCC) Depression Fractures GERD (gastroesophageal reflux disease) HL (hearing loss) Past Surgical History: Procedure Laterality Date HARDWARE REMOVAL LOWER EXTREMITY Right 04/28/2020 Procedure: SCREW REMOVAL RIGHT LEG; Surgeon: Jalil Fisher MD; Location: [facility]; Service:Orthopedic LAMINECTOMY DECOMP THORACIC W/ FUSION SINGLE LEVEL Bilateral 08/03/2021 Procedure: T9-10 Laminectomy, Removal and replacement of Spinal Cord Stimulator and right flank IPG, T10 Laminoplasty and Fusion; Surgeon: Ricky Martell MD; Location: [facility]; Service: Neurological LAMINECTOMY DECOMPRESSION LUMBAR 3 LEVELS Bilateral 02/20/2022 Procedure: LAMINECTOMY DECOMPRESSION LUMBAR 3 LEVELS; Surgeon: Ricky Martell MD; Location: [facility]; Service: Neurological ORIF TIBIAL PLATEAU Right 01/16/2020 Procedure: OPEN REDUCTION INTERNAL FIXATION TIBIAL PLATEAU; Surgeon: Jalil Fisher MD; Location: [facility]; Service: Orthopedic PAIN PUMP TRIAL N/A 09/05/2022 Procedure: INSERTION PAIN PUMP TRIAL; Surgeon: Jalil Hager DO; Location: [facility]; Service: Pain Management SPINAL CORD STIMULATOR PERMANENT Bilateral 12/02/2020 Procedure: T10 Laminectomy, insertion of dorsal column spinal cord stimulator electrode(s) and right flank IPG insertion; Surgeon: Ricky Martell MD; Location: [facility]; Service: Neurological SPINAL CORD STIMULATOR PERMANENT Bilateral 08/03/2021 Procedure: Removal and replacement of Spinal Cord Stimulator and right flank IPG; Surgeon: Ricky Martell MD; Location: [facility]; Service: Neurological SPINAL CORD STIMULATOR PERMANENT N/A 02/20/2022 Procedure: T9-T10 Laminectoy, Removal REtained SCS, Removal of right Flank IPG, Right L3/4, Right L5/S1 Laminectomies, insertion of DRG Electrodes; Surgeon: Ricky Martell MD; Location: [facility]; Service: Neurological SPINAL CORD STIMULATOR TEMPORARY Bilateral 11/15/2020 Procedure: Bilateral percutaneous insertion of trial spinal cord stimulator electrode(s) via L1-L2 Approach, fluoroscopic directed.; Surgeon: Ricky Martell MD; Location: [facility]; Service: Neurological Family History Problem Relation Age of Onset No Known Problems Mother No Known Problems Father No Known Problems Brother Clotting disorder Neg Hx Heart disease Neg Hx Psychiatric History: Please see initial consult note for more details. Allergy Information: I have reviewed the patient's allergies. No known allergies Home Medications: No current outpatient medications on file as of 09/28/2022. Review of Systems: The following system(s) were reviewed and pertinent findings noted: Review of Systems All other systems reviewed and are negative. Physical Examination: Vital Signs: BP 122/80 Pulse 71 Temp 98.4 F (36.9 C) (Oral) Resp 16 Ht 5' 8" Wt 52.3 kg (115 lb 3.2 oz) SpO2 94% BMI 17.52 kg/m Physical Exam Vitals and nursing note reviewed. Constitutional: General: He is not in acute distress. Appearance: He is well-developed. He is not diaphoretic. HENT: Head: Normocephalic and atraumatic. Eyes: General: No scleral icterus. Conjunctiva/sclera: Conjunctivae normal. Pupils: Pupils are equal, round, and reactive to light. Cardiovascular: Rate and Rhythm: Normal rate and regular rhythm. Pulmonary: Effort: Pulmonary effort is normal. Musculoskeletal: General: Normal range of motion. Cervical back: Neck supple. Skin: General: Skin is warm and dry. Neurological: General: No focal deficit present. Mental Status: He is alert and oriented to person, place, and time. Psychiatric: Behavior: Behavior normal. Laboratory and Additional Data Reviewed: Laboratory 09/28/22 10:17 AM Medications 09/28/22 10:17 AM Transcriptions 09/28/22 10:17 AM Recent Results (from the past 24 hour(s)) Drugs of Abuse Screen, Urine Collection Time: 09/27/22 11:54 AM Result Value Ref Range Amphetamine Screen, Urine None Detected None Detected Barbiturate Screen, Urine Presumptive Positive (A) None Detected Benzodiazepine Screen, Urine None Detected None Detected Cannabinoid Screen, Urine Presumptive Positive (A) None Detected Cocaine, Screen Urine None Detected None Detected Methadone Screen, Urine None Detected None Detected Opiate Screen, Urine None Detected None Detected Oxycodone Screen, Urine None Detected None Detected Buprenorphine, Ur None Detected None Detected Fentanyl, Ur None Detected None Detected Assessment Detail: The total time spent for this visit was 65 TO 70 minutes. Greater than 50% of the time was spent incounseling and coordination of care. Daniel Steen MD This note was dictated using voice-recognition software for expedited communication. Please kindly excuse any typos or mis-recognized words. * Susan Marcos CNP - 09/27/2022 4:38 PM EDTAssociated Order(s): IP CONSULT TO ADDICTION MEDICINE ADDICTION MEDICINE CONSULT NOTE Patient Name: Lon Burks Admit Date: [id number] MR #: [id number] : 1975 Physicians: Rylie Gore CNP (Family); Daniel Steen MD (referring) Principal Problem: Alcohol withdrawal syndrome, uncomplicated (HCC) Assessment and Plan: ALCOHOL USE DISORDER / THC USE Continue phenobarb Adding topiramate to help with mood Hydroxyzine PRN Campral 333mg TID for alcohol cravings NAC to help with THC Consult [facility] team for alcohol treatment resources Could benefit from consult to Dr Van for his pain stimulator Malnourished. Nutrition was consulted. Has had significant weight loss and may benefit into lookingat other potential reasons for his weight loss (in addition to his alcohol use) Should get follow up with his PCP regarding his weight loss as well Assessment Detail: The total time spent for this visit was 70 minutes. Greater than 50% of the time was spent in counseling and coordination of care. Reason for Consult: Medical management of alcohol use disorder. Medical management of alcohol withdrawal symptoms. Management of substance use disorder Linking to outpatient services. Counseling services. History of Present Illness: Lon Burks is a 47 y.o. y/o male [facility]/o alcohol withdrawal Chief Complaint Patient presents with Alcohol Problem Patient seen in room 2122. Admits to having a problem with alcohol for many years. States drinking about 6 beers/day. Last drink was yesterday around 1300. [facility] and then was [facility] to the hospital due to his withdrawal symptoms. He reports his motivation for quitting is a back surgery that he wants to get and his grand kids. He has been in treatment in the past. Longest sobriety was about 10 years ago when [facility]. Reports he stayed sober for about a month after and then got overwhelmed and started drinking again. He has been to [facility] in the past.Has been to [facility] for [facility] (about 2 years ago). He does a pain stimulator that he states he w ants taken out because he doesn't not feel that it works. Recommend contacting Dr Hathaway to look into his stimulator. He is malnurished. This could be related to his alcohol use however cannot rule out other etiologies with his significant weight loss and might need to look into other reasons. He does admit to not eating well at home when he was drinking, although he does have an appetite while in hospital. Past Medical History: Diagnosis Date Alcohol abuse Anxiety Back pain Bleeding ulcer Cirrhosis (HCC) Depression Fractures GERD (gastroesophageal reflux disease) HL (hearing loss) Past Surgical History: Procedure Laterality Date HARDWARE REMOVAL LOWER EXTREMITY Right 04/28/2020 Procedure: SCREW REMOVAL RIGHT LEG; Surgeon: Jalil Fisher MD; Location: [facility]; Service:Orthopedic LAMINECTOMY DECOMP THORACIC W/ FUSION SINGLE LEVEL Bilateral 08/03/2021 Procedure: T9-10 Laminectomy, Removal and replacement of Spinal Cord Stimulator and right flank IPG, T10 Laminoplasty and Fusion; Surgeon: Ricky Martell MD; Location: [facility]; Service: Neurological LAMINECTOMY DECOMPRESSION LUMBAR 3 LEVELS Bilateral 02/20/2022 Procedure: LAMINECTOMY DECOMPRESSION LUMBAR 3 LEVELS; Surgeon: Ricky Martell MD; Location: [facility]; Service: Neurological ORIF TIBIAL PLATEAU Right 01/16/2020 Procedure: OPEN REDUCTION INTERNAL FIXATION TIBIAL PLATEAU; Surgeon: Jalil Fisher MD; Location: [facility]; Service: Orthopedic PAIN PUMP TRIAL N/A 09/05/2022 Procedure: INSERTION PAIN PUMP TRIAL; Surgeon: Jalil Hager DO; Location: [facility]; Service: Pain Management SPINAL CORD STIMULATOR PERMANENT Bilateral 12/02/2020 Procedure: T10 Laminectomy, insertion of dorsal column spinal cord stimulator electrode(s) and right flank IPG insertion; Surgeon: Ricky Martell MD; Location: [facility]; Service: Neurological SPINAL CORD STIMULATOR PERMANENT Bilateral 08/03/2021 Procedure: Removal and replacement of Spinal Cord Stimulator and right flank IPG; Surgeon: Ricky Martell MD; Location: [facility]; Service: Neurological SPINAL CORD STIMULATOR PERMANENT N/A 02/20/2022 Procedure: T9-T10 Laminectoy, Removal REtained SCS, Removal of right Flank IPG, Right L3/4, Right L5/S1 Laminectomies, insertion of DRG Electrodes; Surgeon: Ricky Martell MD; Location: [facility]; Service: Neurological SPINAL CORD STIMULATOR TEMPORARY Bilateral 11/15/2020 Procedure: Bilateral percutaneous insertion of trial spinal cord stimulator electrode(s) via L1-L2 Approach, fluoroscopic directed.; Surgeon: Ricky Martell MD; Location: [facility]; Service: Neurological Family History Problem Relation Age of Onset No Known Problems Mother No Known Problems Father No Known Problems Brother Clotting disorder Neg Hx Heart disease Neg Hx Social History Socioeconomic History Marital status: Single Tobacco Use Smoking status: Every Day Packs/day: 1.00 Years: 20.00 Total pack years: 20.00 Types: Cigarettes Smokeless tobacco: Never Vaping Use Vaping Use: Never used Substance and Sexual Activity Alcohol use: Yes Alcohol/week: 84.0 standard drinks of alcohol Types: 84 Cans of beer per week Comment: 30 beers a day for 20 + years. Drug use: Yes Types: Marijuana Comment: " a joint a day" Social History Narrative Merged History Encounter Social Determinants of Health Financial Resource Strain: Low Risk (03/23/2022) Overall Financial Resource Strain (CARDIA) Difficulty of Paying Living Expenses: Not hard at all Food Insecurity: No Food Insecurity (03/23/2022) Hunger Vital Sign Worried About Running Out of Food in the Last Year: Never true Ran Out of Food in the Last Year: Never true Transportation Needs: No Transportation Needs (03/23/2022) PRAPARE - Transportation Lack of Transportation (Medical): No Lack of Transportation (Non-Medical): No Physical Activity: Inactive (03/23/2022) Exercise Vital Sign Days of Exercise per Week: 0 days Minutes of Exercise per Session: 0 min Stress: Stress Concern Present (03/23/2022) [employer] [place] [employer] - Occupational Stress Questionnaire Feeling of Stress : To some extent Social Connections: Socially Isolated (03/23/2022) Social Connection and Isolation Panel [NHANES] Frequency of Communication with Friends and Family: More than three times a week Frequency of Social Gatherings with Friends and Family: More than three times a week Attends Jew Services: Never Active Member of Clubs or Organizations: No Attends Club or Organization Meetings: Never Marital Status: Never Housing Stability: Unknown (03/23/2022) Housing Stability Vital Sign Unable to Pay for Housing in the Last Year: No Number of Places Lived in the Last Year: 1 AOD History: No problems updated. Substance(s) of Choice alcohol Treatment history: yes Longest period of sobriety: 9 months about 10 years ago OD history: no Typical withdrawal symptoms: anxiety, restlessness, sweating, nausea, diarrhea, vomiting, cold sweats, seizures, and tremors History of precipitated withdrawal: no Seizure history: yes Psychiatric History: Diagnoses: no Provider: no SI or SA: no Previous Medications Medication Sig baclofen (LIORESAL) 10 MG tablet Take 2 (two) tablets (20 mg total) by mouth 3 (three) times a day For 2 days . PHENobarbitaL (LUMINAL) 30 MG tablet Take by mouth See Admin Instructions Take 60 mg q6H for 4 doses, then Take 60 mg q8H for 3 doses, then Take 60 mg q12H for 2 doses, then Tahe 30 mg q12H for 2 doses . topiramate (TOPAMAX) 50 MG tablet Take 1 (one) tablet (50 mg total) by mouth 2 (two) times a day . acetaminophen (TYLENOL) 500 MG tablet Take 1 (one) tablet (500 mg total) by mouth every 4 (four) hours as needed . [START ON 09/28/2022] baclofen (LIORESAL) 10 MG tablet Take 1 (one) tablet (10 mg total) by mouth 3 (three) times a day For 3 days Start: 09/28/22. cloNIDine HCL (CATAPRES) 0.1 MG tablet Take 1 (one) tablet (0.1 mg total) by mouth 2 (two) times a day Hold if SBP 110 or below . dicyclomine (BENTYL) 20 mg tablet Take 1 (one) tablet (20 mg total) by mouth every 6 (six) hours asneeded Reasons: stomach cramps. hydrOXYzine (VISTARIL) 50 MG capsule Take 1 (one) capsule (50 mg total) by mouth every 6 (six) hours as needed for anxiety . ibuprofen (ADVIL,MOTRIN) 600 MG tablet Take 1 (one) tablet (600 mg total) by mouth every 8 (eight) hours as needed for pain . melatonin 5 mg Tab Take 1 (one) tablet (5 mg total) by mouth nightly . multivitamin,therapeutic (THERA-TABS ORAL) Take 1 tablet by mouth daily . ondansetron (ZOFRAN) 4 MG tablet Take 1 (one) tablet (4 mg total) by mouth every 4 (four) hours as needed for nausea . pantoprazole (PROTONIX) 40 MG tablet Take 1 (one) tablet (40 mg total) by mouth daily . traZODone (DESYREL) 50 MG tablet Take 1 (one) tablet (50 mg total) by mouth nightly as needed . Allergies Allergen Reactions No Known Allergies Review of Systems Neurological: Positive for tremors. Psychiatric/Behavioral: Positive for dysphoric mood. The patient is nervous/anxious. Patient Vitals for the past 24 hrs: BP Temp Temp src Pulse Resp SpO2 Height Weight 09/27/22 1450 125/81 97.9 F (36.6 C) Oral 79 16 96 % -- -- 09/27/22 1237 135/83 97.9 F (36.6 C) Oral 66 17 95 % -- -- 09/27/22 0718 133/74 98.4 F (36.9 C) Oral 87 16 95 % -- -- 09/27/22 0302 120/78 98.4 F (36.9 C) Oral 79 16 95 % -- -- 09/27/22 0223 -- -- -- -- -- -- 5' 8" -- 09/26/222228 (!) 151/92 98.3 F (36.8 C) Oral 81 16 96 % -- -- 09/26/222209 (!) 125/98 -- -- 83 (!) 10 96 % -- -- 09/26/222199 (!) 121/106 -- -- 81 17 96 % -- -- 09/26/222139 (!) 134/99 -- -- 86 -- -- -- 52.3 kg (115 lb 3.2 oz) 09/26/222138 (!) 134/99 -- -- 87 (!) 19 93 % -- -- 09/26/222129 (!) 134/99 -- -- 91 (!) 19 93 % -- -- 09/26/222015 (!) 135/106 -- -- (!) 101 -- -- -- -- 09/26/222010 (!) 135/106 98.6 F (37 C) Oral 98 (!) 22 96 % -- -- Physical Exam Vitals and nursing note reviewed. Constitutional: General: He is not in acute distress. Appearance: He is underweight. He is not diaphoretic. HENT: Head: Normocephalic and atraumatic. Nose: Nose normal. Mouth/Throat: Mouth: Mucous membranes are moist. Eyes: General: Right eye: No discharge. Left eye: No discharge. Comments: 3mm, mild nystagmus Cardiovascular: Rate and Rhythm: Normal rate. Musculoskeletal: General: Normal range of motion. Cervical back: Normal range of motion. Pulmonary: Effort: Pulmonary effort is normal. No respiratory distress. Abdominal: General: Abdomen is flat. Skin: General: Skin is warm and dry. Neurological: General: No focal deficit present. Mental Status: He is alert. Motor: Tremor present. Psychiatric: Mood and Affect: Mood is depressed. Speech: Speech normal. Behavior: Behavior normal. Behavior is cooperative. Thought Content: Thought content normal. Thought content does not include homicidal or suicidal ideation. Judgment: Judgment normal. Allergy Information: I have reviewed the patient's allergies. No known allergies Home Medications: No current outpatient medications on file as of 09/27/2022. Laboratory & Radiographic Imaging (if done): Recent Results (from the past 24 hour(s)) EKG 12-lead Collection Time: 09/26/22 8:09 PM Result Value Ref Range Ventricular Rate 95 BPM Atrial Rate 95 BPM P-R Interval 142 ms QRS Duration 90 ms Q-T Interval 362 ms QTC Calculation (Bezet) 454 ms P [place] 82 degrees R [place] 95 degrees T [place] 76 degrees BMP Collection Time: 09/26/22 8:13 PM Result Value Ref Range Sodium 136 135 - 145 mmol/L Potassium 3.5 3.5 - 5.1 mmol/L Chloride 101 98 - 108 mmol/L Bicarbonate 23 21 - 32 mmol/L Anion Gap 16 10 - 20 mmol/L Glucose 183 (H) 65 - 99 mg/dL BUN 3 (L) 8 - 25 mg/dL Creatinine 0.83 0.50 - 1.30 mg/dL eGFR 110 >=60 mL/min/1.73 m2 BUN/Creatinine Ratio 3.6 (L) 10.0 - 20.0 Calcium 9.1 8.4 - 10.2 mg/dL LFT (Hepatic Function Panel) Collection Time: 09/26/22 8:13 PM Result Value Ref Range Total Protein 8.3 (H) 6.0 - 8.0 g/dL Albumin 4.5 3.2 - 5.2 g/dL Total Bilirubin 0.6 0.0 - 1.3 mg/dL Bilirubin, Direct 0.2 0.0 - 0.4 mg/dL Alkaline Phosphatase 81 40 - 150 U/L AST 48 (H) 0 - 45 U/L ALT 34 14 - 65 U/L Magnesium Level Collection Time: 09/26/22 8:13 PM Result Value Ref Range Magnesium 2.2 1.6 - 2.4 mg/dL Alcohol, Medical Collection Time: 09/26/22 8:13 PM Result Value Ref Range Alcohol (Medical) 179.90 (H) <10.00 mg/dL CBC Auto Differential Collection Time: 09/26/22 8:13 PM Result Value Ref Range WBC 4.36 (L) 4.50 - 11.00 K/mcL RBC 4.27 (L) 4.50 - 5.90 M/mcL Hemoglobin 13.5 13.5 - 17.5 g/dL Hematocrit 38.8 (L) 41.0 - 53.0 % MCV 90.9 80.0 - 100.0 fL MCH 31.6 26.0 - 34.0 pg MCHC 34.8 31.0 - 37.0 g/dL Platelets 221 150 - 400 K/mcL RDW - CV 13.6 11.6 - 14.8 % MPV 9.6 9.4 - 12.4 fL Neutrophils 56.9 % Lymphocytes 32.3 % Monocytes 9.2 % Eosinophils 0.7 % Basophils 0.7 % IG Percent 0.20 % Neutrophils Abs 2.48 1.70 - 7.00 K/mcL Lymphocytes Abs 1.41 0.90 - 4.00 K/mcL Monocytes Abs 0.40 0.30 - 0.90 K/mcL Eosinophils Abs 0.03 0.00 - 0.50 K/mcL Basophils Abs 0.03 0.00 - 0.30 K/mcL IG Absolute 0.01 0.00 - 0.30 K/mcL Nucleated RBC 0.0 % Nucleated RBC Abs 0.00 0.00 - 0.00 K/mcL TSH with Reflex Free T4 Collection Time: 09/27/22 4:40 AM Result Value Ref Range TSH 2.29 0.27 - 4.20 mcIU/mL Lipid Panel Collection Time: 09/27/22 4:40 AM Result Value Ref Range Cholesterol 177 100 - 199 mg/dL Triglycerides 76 30 - 150 mg/dL HDL 99 40 - 59 mg/dL Chol/HDL Ratio 1.8 ratio LDL Calculated 63 10 - 130 mg/dL Non HDL Cholesterol 78 mg/dL Hemoglobin A1c Collection Time: 09/27/22 4:40 AM Result Value Ref Range Hemoglobin A1C 5.4 4.0 - 5.6 % Estimated Average Glucose 108 68 - 114 mg/dL Phosphorus Collection Time: 09/27/22 4:40 AM Result Value Ref Range Phosphorus 3.2 2.7 - 4.5 mg/dL Magnesium Collection Time: 09/27/22 4:40 AM Result Value Ref Range Magnesium 2.3 1.6 - 2.4 mg/dL Hepatic Function Panel Collection Time: 09/27/22 4:40 AM Result Value Ref Range Total Protein 7.1 6.0 - 8.0 g/dL Albumin 3.8 3.2 - 5.2 g/dL Total Bilirubin 0.8 0.0 - 1.3 mg/dL Bilirubin, Direct 0.2 0.0 - 0.4 mg/dL Alkaline Phosphatase 69 40 - 150 U/L AST 51 (H) 0 - 45 U/L ALT 29 14 - 65 U/L Basic Metabolic Panel Collection Time: 09/27/22 4:40 AM Result Value Ref Range Sodium 142 135 - 145 mmol/L Potassium 3.7 3.5 - 5.1 mmol/L Chloride 112 (H) 98 - 108 mmol/L Bicarbonate 23 21 - 32 mmol/L Anion Gap 11 10 - 20 mmol/L Glucose 82 65 - 99 mg/dL BUN 2 (L) 8 - 25 mg/dL Creatinine 0.62 0.50 - 1.30 mg/dL eGFR 120 >=60 mL/min/1.73 m2 BUN/Creatinine Ratio 3.2 (L) 10.0 - 20.0 Calcium 8.4 8.4 - 10.2 mg/dL PT/INR Collection Time: 09/27/22 4:40 AM Result Value Ref Range Protime (PT) 13.5 11.8 - 14.3 seconds INR 1.0 0.8 - 1.1 APTT Collection Time: 09/27/22 4:40 AM Result Value Ref Range APTT 30 23 - 34 seconds CBC Auto Differential Collection Time: 09/27/22 4:40 AM Result Value Ref Range WBC 4.64 4.50 - 11.00 K/mcL RBC 3.91 (L) 4.50 - 5.90 M/mcL Hemoglobin 12.3 (L) 13.5 - 17.5 g/dL Hematocrit 36.1 (L) 41.0 - 53.0 % MCV 92.3 80.0 - 100.0 fL MCH 31.5 26.0 - 34.0 pg MCHC 34.1 31.0 - 37.0 g/dL Platelets 174 150 - 400 K/mcL RDW - CV 14.1 11.6 - 14.8 % MPV 10.0 9.4 - 12.4 fL Neutrophils 67.4 % Lymphocytes 21.8 % Monocytes 9.1 % Eosinophils 1.1 % Basophils 0.4 % IG Percent 0.20 % Neutrophils Abs 3.13 1.70 - 7.00 K/mcL Lymphocytes Abs 1.01 0.90 - 4.00 K/mcL Monocytes Abs 0.42 0.30 - 0.90 K/mcL Eosinophils Abs 0.05 0.00 - 0.50 K/mcL Basophils Abs 0.02 0.00 - 0.30 K/mcL IG Absolute 0.01 0.00 - 0.30 K/mcL Nucleated RBC 0.0 % Nucleated RBC Abs 0.00 0.00 - 0.00 K/mcL Lipase Collection Time: 09/27/22 4:40 AM Result Value Ref Range Lipase 154 73 - 393 U/L Drugs of Abuse Screen, Urine Collection Time: 09/27/22 8:21 AM Result Value Ref Range Amphetamine Screen, Urine None Detected None Detected Barbiturate Screen, Urine Presumptive Positive (A) None Detected Benzodiazepine Screen, Urine None Detected None Detected Cannabinoid Screen, Urine Presumptive Positive (A) None Detected Cocaine, Screen Urine None Detected None Detected Methadone Screen, Urine None Detected None Detected Opiate Screen, Urine None Detected None Detected Oxycodone Screen, Urine None Detected None Detected Buprenorphine, Ur None Detected None Detected Fentanyl, Ur None Detected None Detected Drugs of Abuse Screen, Urine Collection Time: 09/27/22 11:54 AM Result Value Ref Range Amphetamine Screen, Urine None Detected None Detected Barbiturate Screen, Urine Presumptive Positive (A) None Detected Benzodiazepine Screen, Urine None Detected None Detected Cannabinoid Screen, Urine Presumptive Positive (A) None Detected Cocaine, Screen Urine None Detected None Detected Methadone Screen, Urine None Detected None Detected Opiate Screen, Urine None Detected None Detected Oxycodone Screen, Urine None Detected None Detected Buprenorphine, Ur None Detected None Detected Fentanyl, Ur None Detected None Detected Lab Results Component Value Date AMPHUR None Detected 09/27/2022 BARBUR Presumptive Positive (A) 09/27/2022 BENZUR None Detected 09/27/2022 THCUR Presumptive Positive (A) 09/27/2022 COCAINESUR None Detected 09/27/2022 URMETH None Detected 09/27/2022 OPIATEUR None Detected 09/27/2022 UROXYCODONE None Detected 09/27/2022 FENTANYLUR None Detected 09/27/2022 BUPUR None Detected 09/27/2022 No orders to display Susan aMrcos CNP This note was dictated using voice-recognition software for expedited communication. Please kindly excuse any typos or mis-recognized words. Associated attestation - Daniel Steen MD - 09/28/2022 2:22 PM EDT Patient well known to me. Reviewed before and after evaluated by Bonita Marcos. I am in full agreement with the plan implemented together and will see him tomorrow. * Venessa Darnell MSW LSW - 09/27/2022 1:08 PM EDTAssociated Order(s): IP CONSULT TO CARE MANAGEMENT Care Management Consult Note Date: 09/27/2022 Time: 1:09 PM Patient Name: Lon Burks Date of : 1975 Reason for Consult: Discharge Needs Discharge Plan: Discharging Transportation Plan: Discharge Plan Status: Consult received. In to room to introduce self to patient and explain socialworker role. Patient asleep and did not wake to verbal stimuli. Worker will continue to follow. 3:00pm- Worker attempted to complete assessment. Patient asleep, did not wake to verbal stimuli. Worker will continue to follow. Assessment and Background Information: Living Arrangements: Family members Support Systems: Parent Assistance Needed: none Type of Residence: Private residence Prior to Admission Home Care Services: No documented in this [id number] Consult note* Susan Marcos CNP - 09/27/2022 4:38 PM EDTAssociated Order(s): IP CONSULT TO ADDICTION MEDICINE ADDICTION MEDICINE CONSULT NOTE Patient Name: Lon Burks Admit Date: [id number] MR #: [id number] : 1975 Physicians: Rylie Gore CNP (Family); Daniel Steen MD (referring) Principal Problem: Alcohol withdrawal syndrome, uncomplicated (HCC) Assessment and Plan: ALCOHOL USE DISORDER / THC USE Continue phenobarb Adding topiramate to help with mood Hydroxyzine PRN Campral 333mg TID for alcohol cravings NAC to help with THC Consult [facility] team for alcohol treatment resources Could benefit from consult to Dr Van for his pain stimulator Malnourished. Nutrition was consulted. Has had significant weight loss and may benefit into lookingat other potential reasons for his weight loss (in addition to his alcohol use) Should get follow up with his PCP regarding his weight loss as well Assessment Detail: The total time spent for this visit was 70 minutes. Greater than 50% of the time was spent in counseling and coordination of care. Reason for Consult: Medical management of alcohol use disorder. Medical management of alcohol withdrawal symptoms. Management of substance use disorder Linking to outpatient services. Counseling services. History of Present Illness: Lon Burks is a 47 y.o. y/o male presenting from [facility] with c/o alcohol withdrawal Chief Complaint Patient presents with Alcohol Problem Patient seen in room 2122. Admits to having a problem with alcohol for many years. States drinking about 6 beers/day. Last drink was yesterday around 1300. He then went [facility] the [facility] and then was sent to the hospital due to his withdrawal symptoms. He reports his motivation for quitting is a back surgery that he wants to get and his grand kids. He has been in treatment in the past. Longest sobriety was about 10 years ago when he was [facility]. Reports he stayed sober for about a month after and then got overwhelmed and started drinking again. He has been to [facility] in the past.Has been to [facility] for AOD (about 2 years ago). He does a pain stimulator that he states he w ants taken out because he doesn't not feel that it works. Recommend contacting Dr Hathaway to look into his stimulator. He is malnurished. This could be related to his alcohol use however cannot rule out other etiologies with his significant weight loss and might need to look into other reasons. He does admit to not eating well at home when he was drinking, although he does have an appetite while in hospital. Past Medical History: Diagnosis Date Alcohol abuse Anxiety Back pain Bleeding ulcer Cirrhosis (HCC) Depression Fractures GERD (gastroesophageal reflux disease) HL (hearing loss) Past Surgical History: Procedure Laterality Date HARDWARE REMOVAL LOWER EXTREMITY Right 04/28/2020 Procedure: SCREW REMOVAL RIGHT LEG; Surgeon: Jalil Fisher MD; Location: [facility] OR; Service:Orthopedic LAMINECTOMY DECOMP THORACIC W/ FUSION SINGLE LEVEL Bilateral 08/03/2021 Procedure: T9-10 Laminectomy, Removal and replacement of Spinal Cord Stimulator and right flank IPG, T10 Laminoplasty and Fusion; Surgeon: Ricky Martell MD; Location: [facility]; Service: Neurological LAMINECTOMY DECOMPRESSION LUMBAR 3 LEVELS Bilateral 02/20/2022 Procedure: LAMINECTOMY DECOMPRESSION LUMBAR 3 LEVELS; Surgeon: Ricky Martell MD; Location: [facility]; Service: Neurological ORIF TIBIAL PLATEAU Right 01/16/2020 Procedure: OPEN REDUCTION INTERNAL FIXATION TIBIAL PLATEAU; Surgeon: Jalil Fisher MD; Location: [facility]; Service: Orthopedic PAIN PUMP TRIAL N/A 09/05/2022 Procedure: INSERTION PAIN PUMP TRIAL; Surgeon: Jalil Hager DO; Location: [facility]; Service: Pain Management SPINAL CORD STIMULATOR PERMANENT Bilateral 12/02/2020 Procedure: T10 Laminectomy, insertion of dorsal column spinal cord stimulator electrode(s) and right flank IPG insertion; Surgeon: Ricky Martell MD; Location: [facility]; Service: Neurological SPINAL CORD STIMULATOR PERMANENT Bilateral 08/03/2021 Procedure: Removal and replacement of Spinal Cord Stimulator and right flank IPG; Surgeon: Ricky Martell MD; Location: [facility]; Service: Neurological SPINAL CORD STIMULATOR PERMANENT N/A 02/20/2022 Procedure: T9-T10 Laminectoy, Removal REtained SCS, Removal of right Flank IPG, Right L3/4, Right L5/S1 Laminectomies, insertion of DRG Electrodes; Surgeon: Ricky Martell MD; Location: [facility]; Service: Neurological SPINAL CORD STIMULATOR TEMPORARY Bilateral 11/15/2020 Procedure: Bilateral percutaneous insertion of trial spinal cord stimulator electrode(s) via L1-L2 Approach, fluoroscopic directed.; Surgeon: Ricky Martell MD; Location: [facility]; Service: Neurological Family History Problem Relation Age of Onset No Known Problems Mother No Known Problems Father No Known Problems Brother Clotting disorder Neg Hx Heart disease Neg Hx Social History Socioeconomic History Marital status: Single Tobacco Use Smoking status: Every Day Packs/day: 1.00 Years: 20.00 Total pack years: 20.00 Types: Cigarettes Smokeless tobacco: Never Vaping Use Vaping Use: Never used Substance and Sexual Activity Alcohol use: Yes Alcohol/week: 84.0 standard drinks of alcohol Types: 84 Cans of beer per week Comment: 30 beers a day for 20 + years. Drug use: Yes Types: Marijuana Comment: " a joint a day" Social History Narrative Merged History Encounter Social Determinants of Health Financial Resource Strain: Low Risk (03/23/2022) Overall Financial Resource Strain (CARDIA) Difficulty of Paying Living Expenses: Not hard at all Food Insecurity: No Food Insecurity (03/23/2022) Hunger Vital Sign Worried About Running Out of Food in the Last Year: Never true Ran Out of Food in the Last Year: Never true Transportation Needs: No Transportation Needs (03/23/2022) PRAPARE - Transportation Lack of Transportation (Medical): No Lack of Transportation (Non-Medical): No Physical Activity: Inactive (03/23/2022) Exercise Vital Sign Days of Exercise per Week: 0 days Minutes of Exercise per Session: 0 min Stress: Stress Concern Present (03/23/2022) [employer] [place] [employer] - Occupational Stress Questionnaire Feeling of Stress : To some extent Social Connections: Socially Isolated (03/23/2022) Social Connection and Isolation Panel [NHANES] Frequency of Communication with Friends and Family: More than three times a week Frequency of Social Gatherings with Friends and Family: More than three times a week Attends Jew Services: Never Active Member of Clubs or Organizations: No Attends Club or Organization Meetings: Never Marital Status: Never Housing Stability: Unknown (03/23/2022) Housing Stability Vital Sign Unable to Pay for Housing in the Last Year: No Number of Places Lived in the Last Year: 1 AOD History: No problems updated. Substance(s) of Choice alcohol Treatment history: yes Longest period of sobriety: 9 months about 10 years ago OD history: no Typical withdrawal symptoms: anxiety, restlessness, sweating, nausea, diarrhea, vomiting, cold sweats, seizures, and tremors History of precipitated withdrawal: no Seizure history: yes Psychiatric History: Diagnoses: no Provider: no SI or SA: no Previous Medications Medication Sig baclofen (LIORESAL) 10 MG tablet Take 2 (two) tablets (20 mg total) by mouth 3 (three) times a day For 2 days . PHENobarbitaL (LUMINAL) 30 MG tablet Take by mouth See Admin Instructions Take 60 mg q6H for 4 doses, then Take 60 mg q8H for 3 doses, then Take 60 mg q12H for 2 doses, then Tahe 30 mg q12H for 2 doses . topiramate (TOPAMAX) 50 MG tablet Take 1 (one) tablet (50 mg total) by mouth 2 (two) times a day . acetaminophen (TYLENOL) 500 MG tablet Take 1 (one) tablet (500 mg total) by mouth every 4 (four) hours as needed . [START ON 09/28/2022] baclofen (LIORESAL) 10 MG tablet Take 1 (one) tablet (10 mg total) by mouth 3 (three) times a day For 3 days Start: 09/28/22. cloNIDine HCL (CATAPRES) 0.1 MG tablet Take 1 (one) tablet (0.1 mg total) by mouth 2 (two) times a day Hold if SBP 110 or below . dicyclomine (BENTYL) 20 mg tablet Take 1 (one) tablet (20 mg total) by mouth every 6 (six) hours asneeded Reasons: stomach cramps. hydrOXYzine (VISTARIL) 50 MG capsule Take 1 (one) capsule (50 mg total) by mouth every 6 (six) hours as needed for anxiety . ibuprofen (ADVIL,MOTRIN) 600 MG tablet Take 1 (one) tablet (600 mg total) by mouth every 8 (eight) hours as needed for pain . melatonin 5 mg Tab Take 1 (one) tablet (5 mg total) by mouth nightly . multivitamin,therapeutic (THERA-TABS ORAL) Take 1 tablet by mouth daily . ondansetron (ZOFRAN) 4 MG tablet Take 1 (one) tablet (4 mg total) by mouth every 4 (four) hours as needed for nausea . pantoprazole (PROTONIX) 40 MG tablet Take 1 (one) tablet (40 mg total) by mouth daily . traZODone (DESYREL) 50 MG tablet Take 1 (one) tablet (50 mg total) by mouth nightly as needed . Allergies Allergen Reactions No Known Allergies Review of Systems Neurological: Positive for tremors. Psychiatric/Behavioral: Positive for dysphoric mood. The patient is nervous/anxious. Patient Vitals for the past 24 hrs: BP Temp Temp src Pulse Resp SpO2 Height Weight 09/27/22 1450 125/81 97.9 F (36.6 C) Oral 79 16 96 % -- -- 09/27/22 1237 135/83 97.9 F (36.6 C) Oral 66 17 95 % -- -- 09/27/22 0718 133/74 98.4 F (36.9 C) Oral 87 16 95 % -- -- 09/27/22 0302 120/78 98.4 F (36.9 C) Oral 79 16 95 % -- -- 09/27/22 0223 -- -- -- -- -- -- 5' 8" -- 09/26/229 (!) 151/92 98.3 F (36.8 C) Oral 81 16 96 % -- -- 09/26/22 2210 (!) 125/98 -- -- 83 (!) 10 96 % -- -- 09/26/222199 (!) 121/106 -- -- 81 17 96 % -- -- 09/26/222139 (!) 134/99 -- -- 86 -- -- -- 52.3 kg (115 lb 3.2 oz) 09/26/222138 (!) 134/99 -- -- 87 (!) 19 93 % -- -- 09/26/222129 (!) 134/99 -- -- 91 (!) 19 93 % -- -- 09/26/222015 (!) 135/106 -- -- (!) 101 -- -- -- -- 09/26/222010 (!) 135/106 98.6 F (37 C) Oral 98 (!) 22 96 % -- -- Physical Exam Vitals and nursing note reviewed. Constitutional: General: He is not in acute distress. Appearance: He is underweight. He is not diaphoretic. HENT: Head: Normocephalic and atraumatic. Nose: Nose normal. Mouth/Throat: Mouth: Mucous membranes are moist. Eyes: General: Right eye: No discharge. Left eye: No discharge. Comments: 3mm, mild nystagmus Cardiovascular: Rate and Rhythm: Normal rate. Musculoskeletal: General: Normal range of motion. Cervical back: Normal range of motion. Pulmonary: Effort: Pulmonary effort is normal. No respiratory distress. Abdominal: General: Abdomen is flat. Skin: General: Skin is warm and dry. Neurological: General: No focal deficit present. Mental Status: He is alert. Motor: Tremor present. Psychiatric: Mood and Affect: Mood is depressed. Speech: Speech normal. Behavior: Behavior normal. Behavior is cooperative. Thought Content: Thought content normal. Thought content does not include homicidal or suicidal ideation. Judgment: Judgment normal. Allergy Information: I have reviewed the patient's allergies. No known allergies Home Medications: No current outpatient medications on file as of 09/27/2022. Laboratory & Radiographic Imaging (if done): Recent Results (from the past 24 hour(s)) EKG 12-lead Collection Time: 09/26/22 8:09 PM Result Value Ref Range Ventricular Rate 95 BPM Atrial Rate 95 BPM P-R Interval 142 ms QRS Duration 90 ms Q-T Interval 362 ms QTC Calculation (Bezet) 454 ms P [place] 82 degrees R [place] 95 degrees T [place] 76 degrees BMP Collection Time: 09/26/22 8:13 PM Result Value Ref Range Sodium 136 135 - 145 mmol/L Potassium 3.5 3.5 - 5.1 mmol/L Chloride 101 98 - 108 mmol/L Bicarbonate 23 21 - 32 mmol/L Anion Gap 16 10 - 20 mmol/L Glucose 183 (H) 65 - 99 mg/dL BUN 3 (L) 8 - 25 mg/dL Creatinine 0.83 0.50 - 1.30 mg/dL eGFR 110 >=60 mL/min/1.73 m2 BUN/Creatinine Ratio 3.6 (L) 10.0 - 20.0 Calcium 9.1 8.4 - 10.2 mg/dL LFT (Hepatic Function Panel) Collection Time: 09/26/22 8:13 PM Result Value Ref Range Total Protein 8.3 (H) 6.0 - 8.0 g/dL Albumin 4.5 3.2 - 5.2 g/dL Total Bilirubin 0.6 0.0 - 1.3 mg/dL Bilirubin, Direct 0.2 0.0 - 0.4 mg/dL Alkaline Phosphatase 81 40 - 150 U/L AST 48 (H) 0 - 45 U/L ALT 34 14 - 65 U/L Magnesium Level Collection Time: 09/26/22 8:13 PM Result Value Ref Range Magnesium 2.2 1.6 - 2.4 mg/dL Alcohol, Medical Collection Time: 09/26/22 8:13 PM Result Value Ref Range Alcohol (Medical) 179.90 (H) <10.00 mg/dL CBC Auto Differential Collection Time: 09/26/22 8:13 PM Result Value Ref Range WBC 4.36 (L) 4.50 - 11.00 K/mcL RBC 4.27 (L) 4.50 - 5.90 M/mcL Hemoglobin 13.5 13.5 - 17.5 g/dL Hematocrit 38.8 (L) 41.0 - 53.0 % MCV 90.9 80.0 - 100.0 fL MCH 31.6 26.0 - 34.0 pg MCHC 34.8 31.0 - 37.0 g/dL Platelets 221 150 - 400 K/mcL RDW - CV 13.6 11.6 - 14.8 % MPV 9.6 9.4 - 12.4 fL Neutrophils 56.9 % Lymphocytes 32.3 % Monocytes 9.2 % Eosinophils 0.7 % Basophils 0.7 % IG Percent 0.20 % Neutrophils Abs 2.48 1.70 - 7.00 K/mcL Lymphocytes Abs 1.41 0.90 - 4.00 K/mcL Monocytes Abs 0.40 0.30 - 0.90 K/mcL Eosinophils Abs 0.03 0.00 - 0.50 K/mcL Basophils Abs 0.03 0.00 - 0.30 K/mcL IG Absolute 0.01 0.00 - 0.30 K/mcL Nucleated RBC 0.0 % Nucleated RBC Abs 0.00 0.00 - 0.00 K/mcL TSH with Reflex Free T4 Collection Time: 09/27/22 4:40 AM Result Value Ref Range TSH 2.29 0.27 - 4.20 mcIU/mL Lipid Panel Collection Time: 09/27/22 4:40 AM Result Value Ref Range Cholesterol 177 100 - 199 mg/dL Triglycerides 76 30 - 150 mg/dL HDL 99 40 - 59 mg/dL Chol/HDL Ratio 1.8 ratio LDL Calculated 63 10 - 130 mg/dL Non HDL Cholesterol 78 mg/dL Hemoglobin A1c Collection Time: 09/27/22 4:40 AM Result Value Ref Range Hemoglobin A1C 5.4 4.0 - 5.6 % Estimated Average Glucose 108 68 - 114 mg/dL Phosphorus Collection Time: 09/27/22 4:40 AM Result Value Ref Range Phosphorus 3.2 2.7 - 4.5 mg/dL Magnesium Collection Time: 09/27/22 4:40 AM Result Value Ref Range Magnesium 2.3 1.6 - 2.4 mg/dL Hepatic Function Panel Collection Time: 09/27/22 4:40 AM Result Value Ref Range Total Protein 7.1 6.0 - 8.0 g/dL Albumin 3.8 3.2 - 5.2 g/dL Total Bilirubin 0.8 0.0 - 1.3 mg/dL Bilirubin, Direct 0.2 0.0 - 0.4 mg/dL Alkaline Phosphatase 69 40 - 150 U/L AST 51 (H) 0 - 45 U/L ALT 29 14 - 65 U/L Basic Metabolic Panel Collection Time: 09/27/22 4:40 AM Result Value Ref Range Sodium 142 135 - 145 mmol/L Potassium 3.7 3.5 - 5.1 mmol/L Chloride 112 (H) 98 - 108 mmol/L Bicarbonate 23 21 - 32 mmol/L Anion Gap 11 10 - 20 mmol/L Glucose 82 65 - 99 mg/dL BUN 2 (L) 8 - 25 mg/dL Creatinine 0.62 0.50 - 1.30 mg/dL eGFR 120 >=60 mL/min/1.73 m2 BUN/Creatinine Ratio 3.2 (L) 10.0 - 20.0 Calcium 8.4 8.4 - 10.2 mg/dL PT/INR Collection Time: 09/27/22 4:40 AM Result Value Ref Range Protime (PT) 13.5 11.8 - 14.3 seconds INR 1.0 0.8 - 1.1 APTT Collection Time: 09/27/22 4:40 AM Result Value Ref Range APTT 30 23 - 34 seconds CBC Auto Differential Collection Time: 09/27/22 4:40 AM Result Value Ref Range WBC 4.64 4.50 - 11.00 K/mcL RBC 3.91 (L) 4.50 - 5.90 M/mcL Hemoglobin 12.3 (L) 13.5 - 17.5 g/dL Hematocrit 36.1 (L) 41.0 - 53.0 % MCV 92.3 80.0 - 100.0 fL MCH 31.5 26.0 - 34.0 pg MCHC 34.1 31.0 - 37.0 g/dL Platelets 174 150 - 400 K/mcL RDW - CV 14.1 11.6 - 14.8 % MPV 10.0 9.4 - 12.4 fL Neutrophils 67.4 % Lymphocytes 21.8 % Monocytes 9.1 % Eosinophils 1.1 % Basophils 0.4 % IG Percent 0.20 % Neutrophils Abs 3.13 1.70 - 7.00 K/mcL Lymphocytes Abs 1.01 0.90 - 4.00 K/mcL Monocytes Abs 0.42 0.30 - 0.90 K/mcL Eosinophils Abs 0.05 0.00 - 0.50 K/mcL Basophils Abs 0.02 0.00 - 0.30 K/mcL IG Absolute 0.01 0.00 - 0.30 K/mcL Nucleated RBC 0.0 % Nucleated RBC Abs 0.00 0.00 - 0.00 K/mcL Lipase Collection Time: 09/27/22 4:40 AM Result Value Ref Range Lipase 154 73 - 393 U/L Drugs of Abuse Screen, Urine Collection Time: 09/27/22 8:21 AM Result Value Ref Range Amphetamine Screen, Urine None Detected None Detected Barbiturate Screen, Urine Presumptive Positive (A) None Detected Benzodiazepine Screen, Urine None Detected None Detected Cannabinoid Screen, Urine Presumptive Positive (A) None Detected Cocaine, Screen Urine None Detected None Detected Methadone Screen, Urine None Detected None Detected Opiate Screen, Urine None Detected None Detected Oxycodone Screen, Urine None Detected None Detected Buprenorphine, Ur None Detected None Detected Fentanyl, Ur None Detected None Detected Drugs of Abuse Screen, Urine Collection Time: 09/27/22 11:54 AM Result Value Ref Range Amphetamine Screen, Urine None Detected None Detected Barbiturate Screen, Urine Presumptive Positive (A) None Detected Benzodiazepine Screen, Urine None Detected None Detected Cannabinoid Screen, Urine Presumptive Positive (A) None Detected Cocaine, Screen Urine None Detected None Detected Methadone Screen, Urine None Detected None Detected Opiate Screen, Urine None Detected None Detected Oxycodone Screen, Urine None Detected None Detected Buprenorphine, Ur None Detected None Detected Fentanyl, Ur None Detected None Detected Lab Results Component Value Date AMPHUR None Detected 09/27/2022 BARBUR Presumptive Positive (A) 09/27/2022 BENZUR None Detected 09/27/2022 THCUR Presumptive Positive (A) 09/27/2022 COCAINESUR None Detected 09/27/2022 URMETH None Detected 09/27/2022 OPIATEUR None Detected 09/27/2022 UROXYCODONE None Detected 09/27/2022 FENTANYLUR None Detected 09/27/2022 BUPUR None Detected 09/27/2022 No orders to display Susan Marcos CNP This note was dictated using voice-recognition software for expedited communication. Please kindly excuse any typos or mis-recognized words. Associated attestation - Daniel Steen MD - 09/28/2022 2:22 PM EDT Patient well known to me. Reviewed before and after evaluated by Bonita Marcos. I am in full agreement with the plan implemented together and will see him tomorrow. [facility] Work Phone: [phone] [phone] Consult note* Venessa Darnell MSW LSW - 09/27/2022 1:08 PM EDTAssociated Order(s): IP CONSULT TO CARE MANAGEMENT Care Management Consult Note Date: 09/27/2022 Time: 1:09 PM Patient Name: Lon Burks Date of : 1975 Reason for Consult: Discharge Needs Discharge Plan: Discharging Transportation Plan: Discharge Plan Status: Consult received. In to room to introduce self to patient and explain socialworker role. Patient asleep and did not wake to verbal stimuli. Worker will continue to follow. 3:00pm- Worker attempted to complete assessment. Patient asleep, did not wake to verbal stimuli. Worker will continue to follow. Assessment and Background Information: Living Arrangements: Family members Support Systems: Parent Assistance Needed: none Type of Residence: Private residence Prior to Admission Home Care Services: No [id number] Note* ED Attestation Note - Loli Jimenes MD - 09/27/2022 1:22 AM EDT ED Attestation: I have reviewed the Advanced Practice Provider's (TONE's) documentation. In addition, I have personally introduced myself to the patient (face to face), and have taken his history and performed an examination. I agree with the physical findings, management, clinical impression and disposition. Patient is a 47-year-old male history of alcohol abuse sent to the ED from a [facility] for[facility] withdrawal in the ED he is awake alert jittery vitals noted tachycardic initial CIWA score was 15 CIWA protocol initiated patient admitted for further management [facility] Work Phone: [phone] Miscellaneous Notes* ED Attestation Note - Loli Jimenes MD - 09/27/2022 1:22 AM EDT ED Attestation: I have reviewed the Advanced Practice Provider's (TONE's) documentation. In addition, I have personally introduced myself to the patient (face to face), and have taken his history and performed an examination. I agree with the physical findings, management, clinical impression and disposition. Patient is a 47-year-old male history of alcohol abuse sent to the ED from a [facility] for[facility] withdrawal in the ED he is awake alert jittery vitals noted tachycardic initial CIWA score was 15 CIWA protocol initiated patient admitted for further management * Plan of Care - Kylah Cisneros RN - 09/27/2022 12:20 AM EDT POC initiated Problem: Actual or potential alteration in health Goal: Absence of healthcare acquired conditions Outcome: Partially Met Goal: Knowledge of Interdisciplinary Plan of Care Outcome: Partially Met Goal: Knowledge of Enviroment Outcome: Partially Met * ED Procedure Note - Alden Patel CNP - 09/26/2022 8:33 PM EDTAssociated Order(s): ECG 12 Lead ECG 12 Lead Date/Time: 09/26/2022 8:33 PM Performed by: Alden Patel CNP Authorized by: Loli Jimenes MD Interpreted by ED attending physician Previous ECG: no previous ECG available Rhythm: sinus rhythm BPM: 95 Conduction: conduction normal normal NH interval normal QRS interval normal QT interval Clinical impression: normal ECG documented in this [id number] Note* Plan of Care - Kylah Cisneros RN - 09/27/2022 12:20 AM EDT POC initiated Problem: Actual or potential alteration in health Goal: Absence of healthcare acquired conditions Outcome: Partially Met Goal: Knowledge of Interdisciplinary Plan of Care Outcome: Partially Met Goal: Knowledge of Enviroment Outcome: Partially Met [id number] History and physical note* Sean Villafana MD - 09/26/2022 9:45 PM EDT HMS HISTORY AND PHYSICAL -- [facility] Patient Name: Lon Burks : 1975 MR #: [id number] Admit Date: 09/26/2022 Physicians: Rylie Gore CNP (Family); Daniel Steen MD (Referring) Lon Burks is a 47 y.o. male patient of Rylie Gore CNP with history of alcohol dependence presented to [facility]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 REMOVAL RIGHT LEG Jalil Fisher MD [address] [id number] Reason Comments Pain Status Reason Specialty Diagnoses / Procedures Referre d By Contact Referred To Contact Closed Diagnoses Complex regional pain syndrome type 1 of right lower extremity Ac Dean MD [address] [place] [address] Reason Comments ED consult, nose laceration new pt Status Reason Specialty Diagnoses / Procedures Referred By Contact Referred To Contact Closed Specialty Services Required/Patient' s Best Interest Neurology Diagnoses Pain Jalil Fisher MD [address] [place] [address] Adam Allen MD [address] [facility] [place] [id number] Reason Comments Follow-up Reason Onset Date Comments Medication Refill 04/05/2020 Reason Comments Consult Bilateral leg pain, and discuss possible SCS. Status Reason Specialty Diagnoses / Procedures Referred By Contact Referred To Contact Closed Neurosurgery Diagnoses Leg pain, bilateral Ac Dean MD [address] [phone] Ricky Martlel MD [address] [place] [address] Status Reason Specialty Diagnoses / Procedures Referre d By Contact Referred To Contact Closed Radiology Diagnoses Leg pain, bilateral Chronic bilateral low back pain without sciatica Procedures MR Lumbar Spine Without Contrast Rylie Hernandez PA-C [address] [place] [address] Status Reason Specialty Diagnoses / Procedures Referre d By Contact Referred To Contact Closed Radiology Diagnoses Complex regional pain syndrome type 1 of right lower extremity Procedures MR Thoracic Spine Without Contrast Rylie Hernandez PA-C [address] [place] [address] Status Reason Specialty Diagnoses / Procedures Referred By Contact Referred To Contact Closed Otolaryngology Diagnoses Bilateral hearing loss, unspecified hearing loss type Tinnitus of both ears Rylie Gore, SWATCH CHECKER [address] [place] [address] Margoth Duke AuD [address] [place] [address] Reason Comments New Patient PERKINS Clearance Reason Comments Follow-up To discuss trial SCS Reason Comments Follow-up Reason Comments Pre-operative Medical Risk Stratificatio n Reason Comments Post-op S/P Trial SCS Placme nt Reason Comments Dressing Change Reason Comments Post-op S/P SCS; Patient sta fidelia he is able to walk short distances. He states the bottom of the R foot is on fire. Reason Comments Post-op 1m post op stimulato r, sharp pain in back near incision Reason Comments Follow-up Patient reports the device is barely working after a fall straight on his back approx 7 days ago. They were able to get the SCS working on program 5 but intermittent. Patient would like to see Kathy today if possible. Reason Comments Cerumen Impaction Reason Comments Follow-up Patient presents tod gin to discuss results of CT lumbar. Reason Comments Follow-up IPG site evaluation R side knee pain radiating down into foot, pt states he fell yesterday 07/19/2021 around 4:00 PM Reason Comments Wound Check Reason Onset Date Comments Medication Refill 02/23/2022 Reason Comments Pain RT TIBIAL PLATEAU DI SCUSS PLATE REMOVAL SURGERY 12/2019 Reason Comments Depression Back Pain Reason Comments Post-op 2 week post op s/p D RG, removal of IPG, pt states he fel earlier today and stated that his right side lower back radiating down into right leg are causing pain Reason Comments Fall Fall Saturday, pain fr om head to toes fell down 4 stairs no OTC medications. Pt alert and oriented with no acute distress Reason Comments Rib Injury Patient here for ED follow up after a fall. Xrays show non-displaced Fx to right ribs 7, 8, & 9. Patient still having significant pain and unable to lay flat. Sleeping in a recliner. Reason Comments Alcohol Problem Specialty Diagnoses / Procedures Referred By Contac t Referred To Contact Diagnoses Alcohol withdrawal syndrome, uncomplicated (HCC) Alcohol withdrawal syndrome with complication (HCC) etoh withdraw Referral ID Status Reason Start Date Expiration Date Visits Re quested Visits Authorized [id number] 1 1 Reason Comments Alcohol Problem Hallucinations Specialty Diagnoses / Procedures Referred By Contac t Referred To Contact Diagnoses Alcohol withdrawal delirium (HCC) Alcohol dependence with withdrawal with perceptual disturbance (HCC) Referral ID Status Reason Start Date Expiration Date Visits Re quested Visits Authorized [id number] 1 1 Reason Comments Follow-up Patient here for [facility] up form in patient detox for alcohol. Patient reports being sober for 3 weeks now. Patient having right leg pain and would like medication to help with that since he is no longer drinking to get rid of the pain. Reason Comments Pain Wants referral to pa in management outside of [place] Chest Pain Chest pain started t his AM, patient repots dizziness and nausea. The dizziness caused patient to fall this AM. Reason Comments Chest Pain Specialty Diagnoses / Procedures Referred By Contac t Referred To Contact Diagnoses Pneumonia due to infectious organism Referral ID Status Reason Start Date Expiration Date Visits Re quested Visits Authorized [id number] 1 1 Reason Onset Date Comments Transition Of Care 03/06/2023 1st attempt: Successful Reason Onset Date Comments Care Management Referral 03/07/2023 Reason Comments Rectal Bleeding Presents with compla ints of chronic rectal bleeding. States that it seems to be worse ovr the past couple of weeks since he has been detoxing from alcohol. States that he also has broken rib and chronic leg pain and is requesting pain medication at this time. Specialty Diagnoses / Procedures Referred By Contac t Referred To Contact Diagnoses Rectal bleeding Procedures DIAGNOSTIC UPPER ENDOSCOPY NH EGD TRANSORAL BIOPSY SINGLE/MULTIPLE Andrés Rodriguez MD [address] [place] [address] Referral ID Status Reason Start Date Expiration Date Visits Re quested Visits Authorized [id number] Closed 04/23/2023 05/17/2024 1 1 Reason Comments Rash Patient having break out on his face and scalp for 10+ year that seems to be worsening.The rash comes and goes. Patient would like a referral to Dermatology. He has used many OTC creams. Reason Comments Sinus Problem Sinus pressure, left ear pain. Symptoms x 2 1/2 weeks. Reason Comments Follow-up Patient is intereste d in having a home health aid as he has been falling. He is also interested in getting a handrail in his shower. Reason Comments Back Pain Patient reports havi ng shooting pain from spine to his hip. Reason Comments Post-op post op SCS removal and discectomy/hemilaminectomy/foraminotomy Patient is having pain in his right leg and both of his feet. Reason Comments Post-op Lower back pain radi ating into his right leg Reason Comments Post-op Patient has not noti lion any difference with right leg, Mary Reed MD - 07/01/2018 2:54 PM Maria Esther Garcia RN - 07/01/2018 2:36 PM Maria Esther Garcia RN - 07/01/2018 2:31 PM Toya Bowser LPN - 08/08/2018 4:27 PM EDT ED Notes (unrecognized secti on and content) Associated Order(s): Lac Repair ED PROVIDER NOTE [facility] EMERGENCY DEPARTMENT NAME: Lon Burks AGE: 42 y.o. : 1975 VISIT DATE: 07/01/2018 CSN: [id number] PCP: Lucio Roper MD Chief Complaint Patient presents with Facial Laceration tip of nose This is a 42-year-old male who presents with a laceration to the tip of the nose. Patient notes that a ladder dropped and sliced down at the tip of the nose. Bleeding is controlled. Tetanus is up-to-date. No other injuries. Past Medical History: Diagnosis Date Alcohol abuse Cirrhosis (HCC) Past Surgical History: Procedure Laterality Date NO PAST SURGERIES History reviewed. No pertinent family history. Social History Socioeconomic History Marital status: Single Spouse name: Not on file Number of children: Not on file Years of education: Not on file Highest education level: Not on file Social Needs Financial resource strain: Not on file Food insecurity - worry: Not on file Food insecurity - inability: Not on file Transportation needs - medical: Not on file Transportation needs - non-medical: Not on file Occupational History Not on file Tobacco Use Smoking status: Current Every Day Smoker Packs/day: 1.00 Types: Cigarettes Smokeless tobacco: Never Used Substance and Sexual Activity Alcohol use: Yes Drug use: Yes Types: Marijuana Sexual activity: Not on file Other Topics Concern Not on file Social History Narrative Not on file No current outpatient medications on file prior to encounter. No Known Allergies Review of Systems Constitutional: Negative for chills and fever. HENT: Negative for congestion and rhinorrhea. Eyes: Negative for photophobia and visual disturbance. Respiratory: Negative for cough and shortness of breath. Cardiovascular: Negative for chest pain and leg swelling. Gastrointestinal: Negative for abdominal pain, diarrhea, nausea and vomiting. Genitourinary: Negative for decreased urine volume and flank pain. Musculoskeletal: Negative for myalgias and neck stiffness. Skin: Negative for color change and rash. Neurological: Negative for facial asymmetry and headaches. Psychiatric/Behavioral: Negative for self-injury and suicidal ideas. Patient Vitals for the past 24 hrs: BP Temp Temp src Pulse Resp SpO2 07/01/18 1425 (!) 139/94 98.6 F (37 C) Oral (!) 103 16 98 % Physical Exam Constitutional: He is oriented to person, place, and time. He appears well- developed and well-nourished. Non-toxic appearance. HENT: Head: Normocephalic. Patient does have an avulsion of the nose. The flesh is still attached at the septum. Bleeding is controlled Eyes: EOM are normal. Pupils are equal, round, and reactive to light. Neck: Normal range of motion. Neck supple. Cardiovascular: Normal rate, regular rhythm, intact distal pulses and normal pulses. Pulmonary/Chest: Effort normal and breath sounds normal. Abdominal: Soft. He exhibits no distension. There is no tenderness. Musculoskeletal: Normal range of motion. He exhibits no tenderness. Right lower leg: He exhibits no edema. Left lower leg: He exhibits no edema. Neurological: He is alert and oriented to person, place, and time. Skin: Skin is warm and dry. Capillary refill takes less than 2 seconds. Psychiatric: He has a normal mood and affect. His behavior is normal. Nursing note and vitals reviewed. Laboratory & Radiographic Imaging (if done): No results found for this visit on 07/01/18. No orders to display Wound extent: Lac Repair Date/Time: 07/01/2018 4:19 PM Performed by: Mary Reed MD Authorized by: Mary Reed MD Verbal consent: obtained Consent given by: patient Relevant documents: Relevent documents present and verified. Medical history, medications, allergies and physical assessment reviewed/completed Body area: head/neck Location details: nose Laceration length: 1.5 cm Foreign bodies: no foreign bodies Tendon involvement: none Nerve involvement: none Vascular damage: no Anesthesia: local infiltration Anesthesia: Local Anesthetic: lidocaine 1% without epinephrine Patient sedated: no Repair type: simple Preparation: Patient was prepped and draped in the usual sterile fashion. Irrigation solution: saline Irrigation method: syringe Amount of cleaning: standard Hemostasis achieved with: direct pressure Wound exploration: entire depth of wound probed and visualized no vascular damage Debridement: none Degree of undermining: none Skin closure: 6-0 Prolene Number of sutures: 7 Technique: simple interrupted Approximation: close Approximation difficulty: complex Dressing: antibiotic ointment Patient tolerance: Patient tolerated the procedure well with no immediate complications MDM Number of Diagnoses or Management Options Diagnosis management comments: Dr. Franco saw the patient and recommended I give tetanus, ancef and that I sew the flap. I did so. He will f/u in his clinic next week. The patient has been informed that they may have pre-hypertension or hypertension based on a blood pressure reading in the Emergency Department. I recommend that the patient call the primary care provider listed on their discharge instructions or a physician of their choice as soon as possible to arrange follow-up in the next 4 weeks for further evaluation of possible pre-hypertension or hypertension. . Clinical Impression: SNOMED CT(R) 1. Laceration of nose, initial encounter LACERATION OF NOSE ED Disposition ED Disposition Condition Comment Discharge Stable Lon Burks discharged to home/self care in stable condition. Follow-up Information 1. Magen Franco MD. Specialties: Otolaryngology (ENT), Pediatric Otolaryngology (ENT) Why: to schedule an appt for next week [address] [place], [place] [phone] Contact information for after-discharge care Follow-up information has not been specified. Mary Reed MD 07/01/[address] Reed at bedside for assessment Pt with lac to end of nose, bleeding has stopped; pt states "I was lookin up and a part of the roof fell off and hit me on the face." documented in this encounter AILIN Murray bedside Dr. Veloz at bedside Pt provided with meal tray. Dr. Veloz updated on patients shaking arms/hands and c/o abd pain. Julianne, patient's significant other, phone number [phone] Patient provided with two PB&J sandwiches and some apple juice at this time. This PSA remains at the bedside. Pt becoming slightly aggitated and restless, mild hand tremors noted. Dr Veloz made aware, orders received, along with ok for food. PB&J offered and given now with juice Patient requesting sandwich repeatedly, JOSSELYN Mckeon notified. Patient not provided with anything to eat at this time per RN. Water provided to patient and significant other. ED PROVIDER NOTE [facility] EMERGENCY DEPARTMENT NAME: Lon Burks AGE: 43 y.o. : 1975 VISIT DATE: 08/08/2018 CSN: [id number] PCP: Lucio Roper MD Chief Complaint Patient presents with Hemoptysis This 43-year-old male is here reporting chronic alcohol addiction, requesting detox and treatment reports being suicidal as well. He has had long-term alcohol consumption of beer up to 25 beers per day for many years. He has been labeled as having mild cirrhosis. He recently had some hematemesis and melena. He is not known to have esophageal varices. He was seen in [facility]. He was not hospitalized. He is never had an upper endoscopy but did have perhaps sigmoidoscopy or anal scope. He has been treated for gastritis. He has been in several treatment facilities in the past most recently at [place] 3-4 times per he denies usage of narcotics amphetamines but does take marijuana and smokes cigarettes. Past Medical History: Diagnosis Date Alcohol abuse Cirrhosis (HCC) Past Surgical History: Procedure Laterality Date NO PAST SURGERIES History reviewed. No pertinent family history. Social History Socioeconomic History Marital status: Single Spouse name: Not on file Number of children: Not on file Years of education: Not on file Highest education level: Not on file Occupational History Not on file Social Needs Financial resource strain: Not on file Food insecurity: Worry: Not on file Inability: Not on file Transportation needs: Medical: Not on file Non-medical: Not on file Tobacco Use Smoking status: Current Every Day Smoker Packs/day: 1.50 Types: Cigarettes Smokeless tobacco: Never Used Substance and Sexual Activity Alcohol use: Yes Alcohol/week: 25.0 standard drinks Types: 25 Cans of beer per week Comment: past 25 years Drug use: Yes Types: Marijuana Sexual activity: Not on file Lifestyle Physical activity: Days per week: Not on file Minutes per session: Not on file Stress: Not on file Relationships Social connections: Talks on phone: Not on file Gets together: Not on file Attends rastafarian service: Not on file Active member of club or organization: Not on file Attends meetings of clubs or organizations: Not on file Relationship status: Not on file Other Topics Concern Not on file Social History Narrative Not on file No current outpatient medications on file prior to encounter. No Known Allergies Review of Systems Constitutional: Negative for fever and unexpected weight change. Generally stable weight and intake no recent fevers HENT: Recent nose laceration repaired in ER no current bleeding Eyes: Negative. Respiratory: Negative. Cardiovascular: Negative. Gastrointestinal: See HPI, no current abdominal pain vomiting hematemesis or melena Genitourinary: Negative. Skin: Negative for pallor and rash. Neurological: Negative for tremors, seizures, weakness and headaches. Hematological: Does not bruise/bleed easily. Psychiatric/Behavioral: Positive for suicidal ideas. Negative for confusion. The patient is not nervous/anxious. All other systems reviewed and are negative. Patient Vitals for the past 24 hrs: BP Temp Temp src Pulse Resp SpO2 08/08/18 0933 121/79 97.6 F (36.4 C) Oral 89 16 97 % Physical Exam Constitutional: He appears well-developed. HENT: Head: Normocephalic. Right Ear: External ear normal. Left Ear: External ear normal. Mouth/Throat: Oropharynx is clear and moist. Eyes: Conjunctivae and EOM are normal. Pupils are equal, round, and reactive to light. No scleral icterus. Neck: Normal range of motion. Neck supple. No thyromegaly present. Cardiovascular: Normal rate, regular rhythm, normal heart sounds and intact distal pulses. Pulmonary/Chest: Effort normal and breath sounds normal. Abdominal: Soft. Bowel sounds are normal. He exhibits no mass. There is no tenderness. There is no guarding. No ascites Musculoskeletal: Normal range of motion. He exhibits no edema or tenderness. Lymphadenopathy: He has no cervical adenopathy. Neurological: He is alert. No localizing neurologic defects. Outstretched arms without asterixis or drift [id number] accurate but there is no resting tremor. Romberg test is normal and heel toe walking normal. Skin: Skin is warm. No rash noted. Psychiatric: He has a normal mood and affect. Nursing note and vitals reviewed. Laboratory & Radiographic Imaging (if done): No results found for this visit on 08/08/18. No orders to display Procedures MDM Number of Diagnoses or Management Options Alcohol dependence with uncomplicated withdrawal (HCC): Diagnosis management comments: This patient chronic alcoholic for many years with family history of the same comes in requesting detox and further treatment again trying to control chronic alcoholism. He is not acutely ill by current symptoms. He does report suicidal thoughts but no specific plan. While in ER waiting for his alcohol level to decrease to an acceptable level patient starts developing withdrawal symptoms tremulousness shaking. His first given Ativan 1 mg IV with improvement. After several hours he had increasing tremors shaking. He remains alert and conversational but believes he is going into withdrawal symptoms. He is given a second dose of Ativan 2 mg IV. In each case in the past he reports requirement for multiple doses during the period of withdrawal. He has had some brief spells but does not describe withdrawal seizures in the past. Does not describe suicidal thoughts , he will not reach legal alcohol status until 14 hours after arrival. Hospitalist will observe this patient as he is going to require recurring doses of Ativan or Librium for his expected alcohol withdrawal syndrome. Patient does wish to go back into a treatment program. Risk of Complications, Morbidity, and/or Mortality Presenting problems: moderate Diagnostic procedures: moderate Management options: moderate Patient Progress Patient progress: stable The patient has been informed that they may have pre-hypertension or hypertension based on a blood pressure reading in the Emergency Department. I recommend that the patient call the primary care provider listed on their discharge instructions or a physician of their choice as soon as possible to arrange follow-up in the next 4 weeks for further evaluation of possible pre-hypertension or hypertension. . Clinical Impression: No diagnosis found. ED Disposition None Follow-up Information Follow-up information has not been specified. Contact information for after-discharge care Follow-up information has not been specified. Andrew Veloz MD 08/08/[address] Veloz Pt concerned with vomiting up blood and dark stools. Pt admits to being alcoholic for years and c/o being suicidal. Pt wants to detox. Currently drinks 25 cans of beers a day. Last drink around 9am. documented in this encounter PT. CONTINUES TO EAT BREAKFAST IN ROOM AND IS ATTEMPTING TO FIND A RIDE HOME. Meal tray delivered. PT.'S BELONGINGS BEING RETURNED BY SECURITY. CAMERA TURNED OFF SO PT. CAN GET DRESSED. PT. AMBULATORY TO NURSES' STATION TO USE THE PHONE. Pt at desk to use phone. DR. SAMARA PALMER. ED PROVIDER NOTE [facility] EMERGENCY DEPARTMENT NAME: Lon Burks AGE: 43 y.o. : 1975 VISIT DATE: 10/11/2018 CSN: [id number] PCP: Lucio Roper MD Chief Complaint Patient presents with Suicidal Alcohol Intoxication Abdominal Pain HPI Past Medical History: Diagnosis Date Alcohol abuse Cirrhosis (HCC) Past Surgical History: Procedure Laterality Date NO PAST SURGERIES No family history on file. Social History Socioeconomic History Marital status: Single Spouse name: Not on file Number of children: Not on file Years of education: Not on file Highest education level: Not on file Occupational History Not on file Social Needs Financial resource strain: Not on file Food insecurity: Worry: Not on file Inability: Not on file Transportation needs: Medical: Not on file Non-medical: Not on file Tobacco Use Smoking status: Current Every Day Smoker Packs/day: 1.50 Types: Cigarettes Smokeless tobacco: Never Used Substance and Sexual Activity Alcohol use: Yes Alcohol/week: 25.0 standard drinks Types: 25 Cans of beer per week Comment: Drinks 24 beers daily Drug use: Yes Types: Marijuana Sexual activity: Not on file Lifestyle Physical activity: Days per week: Not on file Minutes per session: Not on file Stress: Not on file Relationships Social connections: Talks on phone: Not on file Gets together: Not on file Attends rastafarian service: Not on file Active member of club or organization: Not on file Attends meetings of clubs or organizations: Not on file Relationship status: Not on file Other Topics Concern Not on file Social History Narrative Not on file No current outpatient medications on file prior to encounter. No Known Allergies Review of Systems Patient Vitals for the past 24 hrs: BP Temp Temp src Pulse Resp SpO2 Height Weight 10/12/18 0931 (!) 147/83 97.5 F (36.4 C) Oral 73 16 96 % 10/12/18 0931 (!) 147/83 73 10/12/18 0642 121/80 75 10/12/18 0616 121/80 75 95 % 10/12/18 0303 117/75 98.5 F (36.9 C) Oral 79 94 % 10/11/18 2330 115/68 98.4 F (36.9 C) Oral 78 16 97 % 10/11/18 1819 128/80 98.3 F (36.8 C) Oral 93 (!) 20 95 % 5' 8" 65.8 kg (145 lb) Physical Exam Laboratory & Radiographic Imaging (if done): Results for orders placed or performed during the hospital encounter of 10/11/18 Alcohol, Medical Result Value Ref Range Alcohol (Medical) 300.20 (H) <10.00 mg/dL Urine Drug Screen Result Value Ref Range Amphetamine Screen, Urine None Detected None Detected Barbiturate Screen, Urine None Detected None Detected Benzodiazepine Screen, Urine None Detected None Detected Cannabinoid Screen, Urine None Detected None Detected Cocaine, Screen Urine None Detected None Detected Methadone Screen, Urine None Detected None Detected Opiate Screen, Urine None Detected None Detected Oxycodone Screen, Urine None Detected None Detected Chem 7 Result Value Ref Range Sodium 142 135 - 145 mmol/L Potassium 3.6 3.5 - 5.1 mmol/L Chloride 108 98 - 108 mmol/L Bicarbonate 24 21 - 32 mmol/L Creatinine 0.85 0.50 - 1.30 mg/dL Glucose 92 65 - 99 mg/dL BUN 6 (L) 8 - 25 mg/dL eGFR 108 >=60 mL/min/1.73 m2 BUN/Creatinine Ratio 7.1 (L) 10.0 - 20.0 Anion Gap 14 10 - 20 mmol/L Hepatic Function Panel (LFT) Result Value Ref Range Total Protein 7.9 6.0 - 8.0 g/dL Albumin 4.3 3.2 - 5.2 g/dL Total Bilirubin 0.2 0.0 - 1.3 mg/dL Bilirubin, Direct <0.1 0.0 - 0.4 mg/dL Alkaline Phosphatase 64 40 - 150 U/L AST 103 (H) 0 - 45 U/L ALT 108 (H) 14 - 65 U/L Gold Top Result Value Ref Range Extra Tube Hold for add-ons. Light Blue Top Result Value Ref Range Extra Tube Hold for add-ons. Alcohol, Medical Result Value Ref Range Alcohol (Medical) 118.50 (H) <10.00 mg/dL Alcohol, Medical Result Value Ref Range Alcohol (Medical) <10.00 <10.00 mg/dL CBC Auto Differential Result Value Ref Range WBC 4.41 (L) 4.50 - 11.00 K/mcL RBC 4.15 (L) 4.50 -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 04/16/22 04/16/22 Human Services Worker Relationship Specialty Start Date End Date Rylie Gore, SWATCH CHECKER [address] [place] [address] PCP - General Nurse Practitioner 04/16/22 GoreJosselinRylie Dolly, SWATCH CHECKER [address] [place] [address] Nurse Practitioner 01/15/20 Nina De Jesus MA Squad Sergeant 10/13/18 Ricky Martell MD [address] [place] [address] Consulting Physician Neurological Surgery 11/14/20 Ricky Martell MD [address] [place] [address]86 Consulting Physician Neurological Surgery 11/30/20 Human Services Worker Relationship Specialty Start Date End Date SofíaJosselinRyliehenrietta Alberto, SWATCH CHECKER [address] [facility] [address] [place] [address] PCP - General Nurse Practitioner 04/16/22 GoreJosselin stilesily Dolly, SWATCH CHECKER [address] [place] [address] Nurse Practitioner 01/15/20 Nina De Jesus MA Squad Sergeant 10/13/18 Ricky Martell MD [address] [place] [address] Consulting Physician Neurological Surgery 11/14/20 Ricky Martell MD [address] [place] [address]20 Consulting Physician Neurological Surgery 11/30/20 Human Services Worker Relationship Specialty Start Date End Date SofíaJosselinRyliehenrietta Alberto, SWATCH CHECKER [address] [facility] [address] [place] [address] PCP - General Nurse Practitioner 04/16/22 GoreJosselin stileshenrietta Alberto, SWATCH CHECKER [address] [place] [address] Nurse Practitioner 01/15/20 Nina De Jesus MA Squad Sergeant 10/13/18 Ricky Martell MD [address] [place] [address] Consulting Physician Neurological Surgery 11/14/20 Ricky Martell MD [address] [place] [address]18 Consulting Physician Neurological Surgery 11/30/20 Human Services Worker Relationship Specialty Start Date End Date Rylie Gore, SWATCH CHECKER [address] [facility] [address] [address] PCP - General Nurse Practitioner 04/16/22 Rylie Gore, SWATCH CHECKER [address] [place] [address] Nurse Practitioner 01/15/20 Nina De Jesus MA Squad Sergeant 10/13/18 Ricky Martell MD [address] [address] Consulting Physician Neurological Surgery 11/14/20 Ricky Martell MD [address] [address] Consulting Physician Neurological Surgery 11/30/20 Human Services Worker Relationship Specialty Start Date End Date Rylie Gore, SWATCH CHECKER [address] [address] PCP - General Nurse Practitioner 04/16/22 Rylie Gore, SWATCH CHECKER [address] [place] [address] Nurse Practitioner 01/15/20 Nina De Jesus MA Squad Sergeant 10/13/18 Ricky Martell MD [address] [address] Consulting Physician Neurological Surgery 11/14/20 Ricky Martell MD [address] [address] Consulting Physician Neurological Surgery 11/30/20 Human Services Worker Relationship Specialty Start Date End Date Rylie Gore [facility] [address] [place] [address] PCP - General Certified Nurse Practitioner 04/18/20 Human Services Worker Relationship Specialty Start Date End Date Sofía Rylie Dolly, SWATCH CHECKER [address] [place] [address] PCP - General Nurse Practitioner 04/16/22 SofíaJosselinRylie Dolly, SWATCH CHECKER [address] [place] [phone] Nurse Practitioner 01/15/20 Nina De Jesus MA Squad Sergeant 10/13/18 Ricky Martell MD [address] [address] Consulting Physician Neurological Surgery 11/14/20 Ricky Martell MD [address] [place] [phone] Consulting Physician Neurological Surgery 11/30/20 Team Status: Active Member Role Status Dates No Primary Care Physician Family Provider Active RYLIE GORE Primary Care Provider Active Team Status: Active Member Role Status Dates RYLIESOFÍA Primary Care Provider Active Dr. Masha Perdomo DO Emergency Provider Active Dr. Latasha Nye MD Admit Provider, Attending Provid er, Other Provider Active Team Status: Inactive Member Role Status Dates SOFÍA YOUNGBLOOD Primary Care Provider Active Dr. Masha Perdomo DO Emergency Provider Active Dr. Latasha Nye MD Admit Provider, Other Provider A ctive Dr. Julee Costello MD Attending Provider Active Human Services Worker Relationship Specialty Start Date End Date Rylie GorePIPER [address] [place] [address] PCP - General Nurse Practitioner 04/16/22 SofíaJosselinRylie PIPER Alberto [address] [place] [address] Nurse Practitioner 01/15/20 Nina De Jesus MA Squad Sergeant 10/13/18 Ricky Martell MD [address] [facility] [place] [address]71 Consulting Physician Neurological Surgery 11/14/20 Ricky Martell MD [address] VERÓNICA [address] [place], [place] [phone] Consulting Physician Neurological Surgery 11/30/20 Daniel Steen MD [facility] Silvano Rosado [address] [place] [address] Consulting Physician Addiction Medicine 09/28/22 Human Services Worker Relationship Specialty Start Date End Date Rylie Gore CNP [facility] [address] [place] [id number] PCP - General Nurse Practitioner 04/16/22 Rylie Gore CNP [address] [place] [address] Nurse Practitioner 01/15/20 Nina De Jesus MA Squad Sergeant 10/13/18 Ricky Martell MD [address] SANCHES [address] [place] [address]805 Consulting Physician Neurological Surgery 11/14/20 Ricky Martell MD [address] VERÓNICA [address] [place] [address] Consulting Physician Neurological Surgery 11/30/20 Daniel Steen MD [address] [place] [address]55 Consulting Physician Addiction Medicine 09/28/22 Human Services Worker Relationship Specialty Start Date End Date Rylie Gore CNP [address] [place] [address] PCP - General Nurse Practitioner 04/16/22 Rylie Gore, PIPER [address] [place] [address] Nurse Practitioner 01/15/20 Nina De Jesus MA Squad Sergeant 10/13/18 Ricky Martell MD [address] [place] [address]364 Consulting Physician Neurological Surgery 11/14/20 Ricky Martell MD [address] [place] [address]05 Consulting Physician Neurological Surgery 11/30/20 Daniel Steen MD [address] [place] [address]246 Consulting Physician Addiction Medicine 09/28/22 Human Services Worker Relationship Specialty Start Date End Date Rylie Gore CNP [address] [place] [address]46 PCP - General Nurse Practitioner 04/16/22 Rylie Gore CNP [address] [place] [address] Nurse Practitioner 01/15/20 Nina De Jesus MA Squad Sergeant 10/13/18 Ricky Martell MD [address] [place], [place] [phone] Consulting Physician Neurological Surgery 11/14/20 Ricky Martell MD [address] VERÓNICA [address] [place], [place] [phone] Consulting Physician Neurological Surgery 11/30/20 Daniel Steen MD [address] [place], [place] [phone] Consulting Physician Addiction Medicine 09/28/22 Human Services Worker Relationship Specialty Start Date End Date Rylie Gore CNP [facility] [address] [place] [id number] PCP - General Nurse Practitioner 04/16/22 Rylie Gore CNP [address] [place], [place] [phone] Nurse Practitioner 01/15/20 Nina De Jesus MA Squad Sergeant 10/13/18 Ricky Martell MD [address] [place], [place] [phone] Consulting Physician Neurological Surgery 11/14/20 Ricky Martell MD [address] [place], [place] [phone] Consulting Physician Neurological Surgery 11/30/20 Daniel Steen MD [address] [place], [place] [phone] Consulting Physician Addiction Medicine 09/28/22 Human Services Worker Relationship Specialty Start Date End Date Rylie Gore CNP [address] [place] [address]602 PCP - General Nurse Practitioner 04/16/22 Rylie Gore CNP [address] [place] [address] Nurse Practitioner 01/15/20 Nina De Jesus MA Squad Sergeant 10/13/18 Ricky Martell MD [address] [address] Consulting Physician Neurological Surgery 11/14/20 Ricky Martell MD [address] [address] Consulting Physician Neurological Surgery 11/30/20 Daniel Steen MD [address]70 [address] [place] [address]79 Consulting Physician Addiction Medicine 09/28/22 Cathy Lozano, geographic information systems engineerLaboratory [employer] 03/06/23 03/06/23 Human Services Worker Relationship Specialty Start Date End Date Rylie Gore CNP [facility]70 [facility] [address] [place] [address] PCP - General Nurse Practitioner 04/16/22 Rylie Gore CNP [address] [place] [address] 92404 Nurse Practitioner 01/15/20 Nina De Jesus MA Squad Sergeant 10/13/18 Ricky Martell MD [address] [place], [place] [phone] Consulting Physician Neurological Surgery 11/14/20 Ricky Martell MD [address] [place], [place] [phone] Consulting Physician Neurological Surgery 11/30/20 Daniel Steen MD [facility] Silvano Rosado [address] [place], [place] [phone] Consulting Physician Addiction Medicine 09/28/22 Margoth Cotter [facility] Health Worker Case Management 03/07/23 Human Services Worker Relationship Specialty Start Date End Date Rylie Gore CNP [facility] [address] [place] [id number] PCP - General Nurse Practitioner 04/16/22 Rylie Gore CNP [address] [place], [place] [phone] Nurse Practitioner 01/15/20 Nina De Jesus MA Squad Sergeant 10/13/18 Ricky Martell MD [address] [place], [place] [phone] Consulting Physician Neurological Surgery 11/14/20 Ricky Martell MD [address] [place], [place] [phone] Consulting Physician Neurological Surgery 11/30/20 Daniel Steen MD [address] [place] [address]302 Consulting Physician Addiction Medicine 09/28/22 Margoth Cotter [facility] Worker Case Management 03/07/23 Human Services Worker Relationship Specialty Start Date End Date Rylie Gore CNP [address] [facility] [address] [address] PCP - General Nurse Practitioner 04/16/22 Rylie Gore CNP [address] [place] [address] 46677 Nurse Practitioner 01/15/20 Nina De Jesus MA Squad Sergeant 10/13/18 Ricky Martell MD [address] [place] [address] 45503 Consulting Physician Neurological Surgery 11/14/20 Ricky Martell MD [address] [place] [address] 17859 Consulting Physician Neurological Surgery 11/30/20 Daniel Steen MD 770 [facility] [address] [place] [address] 44187 Consulting Physician Addiction Medicine 09/28/22 Margoth Cotter Community Health Worker Case Management 03/07/23 Human Services Worker Relationship Specialty Start Date End Date Rylie Gore APRN-PIPER [address] [place] [address] PCP - General Certified Nurse Practitioner 04/18/20 [place] [address] [place] [address] Physician Maintenance Supervisor 04/21/23 Human Services Worker Relationship Specialty Start Date End Date Rylie Gore APRN-SWATCH CHECKER [address] [place] [address] PCP - General Certified Nurse Practitioner 04/18/20 [place] [address] [place] [address] Physician Maintenance Supervisor 04/21/23 Human Services Worker Relationship Specialty Start Date End Date Rylie Gore CNP [address] [place] [address] PCP - General Nurse Practitioner 04/16/22 Rylie Gore CNP 200 [place] [address] Nurse Practitioner 01/15/20 Nina De Jesus MA Squad Sergeant 10/13/18 Ricky Martell MD [address] [place], [place] [phone] Consulting Physician Neurological Surgery 11/14/20 Ricky Martell MD [address] [place], [place] [phone] Consulting Physician Neurological Surgery 11/30/20 Daniel Steen MD [address] Rosado [address] [place], [place] [phone] Consulting Physician Addiction Medicine 09/28/22 Margoth Cotter Community Health Worker Case Management 03/07/23 Human Services Worker Relationship Specialty Start Date End Date Rylie Gore CNP [address] [place] [id number] PCP - General Nurse Practitioner 04/16/22 Rylie Gore CNP 200 [place] [address] Nurse Practitioner 01/15/20 Nina De Jesus MA Squad Sergeant 10/13/18 Ricky Martell MD [address] [address] Consulting Physician Neurological Surgery 11/14/20 Ricky Martell MD [address] [address] Consulting Physician Neurological Surgery 11/30/20 Daniel Steen MD 770 [facility] [address] [place] [address] 28123 Consulting Physician Addiction Medicine 09/28/22 Margoth Cotter Community Health Worker Case Management 03/07/23 05/24/23 Human Services Worker Relationship Specialty Start Date End Date Rylie Gore CNP [facility]70 [facility] [place] [address] PCP - General Nurse Practitioner 04/16/22 Rylie Gore CNP 200 [place] [address] Nurse Practitioner 01/15/20 Nina De Jesus MA Squad Sergeant 10/13/18 Ricky Martell MD [address] [address] Consulting Physician Neurological Surgery 11/14/20 Ricky Martell MD [address] VERÓNICA [address] [place] [address] 7[address]47 Consulting Physician Neurological Surgery 11/30/20 Daniel Steen MD 770 [facility] [address] [place] [address] 89452 Consulting Physician Addiction Medicine 09/28/22 Human Services Worker Relationship Specialty Start Date End Date Rylie Gore CNP [address] [facility] [address] PCP - General Nurse Practitioner 04/16/22 Rylie Gore CNP [address] [place] [address] Nurse Practitioner 01/15/20 Nina De Jesus MA Squad Sergeant 10/13/18 Ricky Martell MD [address] [address] Consulting Physician Neurological Surgery 11/14/20 Ricky Martell MD [address] [address] Consulting Physician Neurological Surgery 11/30/20 Daniel Steen MD 770 [facility] [address] [place] [address] 01029 Consulting Physician Addiction Medicine 09/28/22 Team Status: Active Member Role Status Dates SOFÍA YOUNGBLOOD Primary Care Provider Active Start : July 10, 2024 Reji Pepper MD Emergency Provider Active Star t: July 10, 2024 Dr. Luis Burt , Admit Provider Active Start: July 10, 2024 Dr. Luis Burt , Attending Provider Active Start: July 10, 2024 Human Services Worker Relationship Specialty Start Date End Date Rylie Gore CNP 770 [facility] [place] [address] PCP - General Nurse Practitioner 04/16/22 Rylie Gore CNP [address] [place] [address]32 Nurse Practitioner 01/15/20 Nina De Jesus MA Squad Sergeant 10/13/18 Ricky Martell MD [address] [address] Consulting Physician Neurological Surgery 11/14/20 Ricky Martell MD [address] [address] Consulting Physician Neurological Surgery 11/30/20 Daniel Steen MD [address] [address] Consulting Physician Addiction Medicine 09/28/22 Human Services Worker Relationship Specialty Start Date End Date Rylie Gore CNP [facility] [facility] [place] [address] PCP - General Nurse Practitioner 04/16/22 Rylie Gore CNP [address] [place] [address] Nurse Practitioner 01/15/20 Nina De Jesus MA Squad Sergeant 10/13/18 Ricky Martell MD [address] [facility] [address] [place] [address]26 Consulting Physician Neurological Surgery 11/14/20 Ricky Martell MD [address] [facility] [address] [place], [place] [phone] Consulting Physician Neurological Surgery 11/30/20 Daniel Steen MD [address] Ros[address] [place] [address] 81954 Consulting Physician Addiction Medicine 09/28/22 Human Services Worker Relationship Specialty Start Date End Date Rylie Gore CNP [address] [place], [place] [address]cat [place] [phone] PCP - General Nurse Practitioner 04/16/22 Rylie Gore CNP [address] [place] [address] Nurse Practitioner 01/15/20 Nina De Jesus MA Squad Sergeant 10/13/18 Ricky Martell MD [address] [facility] [address] [place], [place] [phone] Consulting Physician Neurological Surgery 11/14/20 Ricky Martell MD [address] [facility] [address] [place] [address] Consulting Physician Neurological Surgery 11/30/20 Daniel Steen MD [address] [place] [address] 7[address]60 Consulting Physician Addiction Medicine 09/28/22 Human Services Worker Relationship Specialty Start Date End Date Rylie Gore CNP [facility]70 [facility] [place] [address] PCP - General Nurse Practitioner 04/16/22 Rylie oGre CNP [address] [place], [place] [phone] Nurse Practitioner 01/15/20 Nina De Jesus MA Squad Sergeant 10/13/18 Ricky Martell MD [address] [place] [phone] Consulting Physician Neurological Surgery 11/14/20 Ricky Martell MD [address] [place] [phone] Consulting Physician Neurological Surgery 11/30/20 Daniel Steen MD [facility] Silvano Rosado [address] [place], [place] [phone] Consulting Physician Addiction Medicine 09/28/22 Human Services Worker Relationship Specialty Start Date End Date Rylie Gore CNP [facility] [place] [address] PCP - General Nurse Practitioner 04/16/22 Rylie Gore CNP [address] [place] [address] Nurse Practitioner 01/15/20 Nina De Jesus MA Squad Sergeant 10/13/18 Ricky Martell MD [address] [facility] [address] [place] [address] 70636 Consulting Physician Neurological Surgery 11/14/20 Ricky Martell MD [address] [facility] [address] [place] [address] 39900 Consulting Physician Neurological Surgery 11/30/20 Daniel Steen MD 770 [facility] [address] [place] [address] 25743 Consulting Physician Addiction Medicine 09/28/22 Human Services Worker Relationship Specialty Start Date End Date Rylie Gore CNP [address] [place] [address] [place] [address] PCP - General Nurse Practitioner 04/16/22 Rylie Gore CNP [address] [place] [address] 28662 Nurse Practitioner 01/15/20 Nina De Jesus MA Squad Sergeant 10/13/18 Ricky Martell MD [address] [address] Consulting Physician Neurological Surgery 11/14/20 Ricky Martell MD [address] [facility] [address] [place] [address] 13536 Consulting Physician Neurological Surgery 11/30/20 Daniel Steen MD [facility] [facility] [address] [place] [address] 09516 Consulting Physician Addiction Medicine 09/28/22 Human Services Worker Relationship Specialty Start Date End Date Rylie Gore CNP [address] [facility] [place] [address] PCP - General Nurse Practitioner 04/16/22 Rylie Gore CNP 200 [place] [address] Nurse Practitioner 01/15/20 Nina De Jesus MA Squad Sergeant 10/13/18 Ricky Martell MD [address] [place], [place] [phone] Consulting Physician Neurological Surgery 11/14/20 Ricky Martell MD [address] [place], [place] [phone] Consulting Physician Neurological Surgery 11/30/20 Daniel Steen MD [address] Ros[address] [place], [place] [phone] Consulting Physician Addiction Medicine 09/28/22 Human Services Worker Relationship Specialty Start Date End Date Rylie Gore CNP [address] [place] [address] PCP - General Nurse Practitioner 04/16/22 Rylie Gore CNP 200 [place] [address] Nurse Practitioner 01/15/20 Nina De Jesus MA Squad Sergeant 10/13/18 Ricky Martell MD [address] [place], [place] [phone] Consulting Physician Neurological Surgery 11/14/20 Ricky Martell MD [address] [place], [place] [phone] Consulting Physician Neurological Surgery 11/30/20 Daniel Steen MD [address] [place], [place] [phone] Consulting Physician Addiction Medicine 09/28/22 Human Services Worker Relationship Specialty Start Date End Date Rylie Gore CNP [facility] [facility] [place] [phone] PCP - General Nurse Practitioner 04/16/22 Rylie Gore CNP [address] [place], [place] [phone] Nurse Practitioner 01/15/20 Nina De Jesus MA Squad Sergeant 10/13/18 Ricky Martell MD [address] [place], [place] [phone] Consulting Physician Neurological Surgery 11/14/20 Ricky Martell MD [address] [place], [place] [phone] Consulting Physician Neurological Surgery 11/30/20 Daniel Steen MD [address] Rosado [address] [place] [address] 58029 Consulting Physician Addiction Medicine 09/28/22 Human Services Worker Relationship Specialty Start Date End Date Rylie Gore CNP [address] [place] [address] PCP - General Nurse Practitioner 04/16/22 Rylie Gore CNP [address] [place] [address] 326[address] Nurse Practitioner 01/15/20 Nina De Jesus MA Squad Sergeant 10/13/18 Ricky Martell MD [address] [address] Consulting Physician Neurological Surgery 11/14/20 Ricky Martell MD [address] [address] Consulting Physician Neurological Surgery 11/30/20 Daniel Steen MD 770 [facility] [address] [place] [address] 83275 Consulting Physician Addiction Medicine 09/28/22 Human Services Worker Relationship Specialty Start Date End Date Rylie Gore CNP [address] [facility] [place] [address] PCP - General Nurse Practitioner 04/16/22 Rylie Gore CNP [address] [place] [address] Nurse Practitioner 01/15/20 Nina De Jesus MA Squad Sergeant 10/13/18 Ricky Martell MD [address] [address] Consulting Physician Neurological Surgery 11/14/20 Ricky Martell MD [address] [facility] [address] [place] [address] Consulting Physician Neurological Surgery 11/30/20 Daniel Steen MD [address] [place] [address] 10578 Consulting Physician Addiction Medicine 09/28/22 Human Services Worker Relationship Specialty Start Date End Date Rylie Gore, PIPER [address] [place] [address] PCP - General Nurse Practitioner 04/16/22 Rylie Gore, PIPER [address] [place] [address]686 Nurse Practitioner 01/15/20 Nina De Jesus MA Squad Sergeant 10/13/18 Ricky Martell MD [address] [facility] [address] [place], [place] [phone] Consulting Physician Neurological Surgery 11/14/20 Ricky Martell MD [address] [facility] [address] [place] [address] Consulting Physician Neurological Surgery 11/30/20 Daniel Steen MD [address] [place] [address] 88467 Consulting Physician Addiction Medicine 09/28/22 Human Services Worker Relationship Specialty Start Date End Date Rylie Gore, PIPER [address] [place] [address] PCP - General Nurse Practitioner 04/16/22 Rylie Gore, PIPER 200 [place] [address] Nurse Practitioner 01/15/20 Nina De Jesus MA Squad Sergeant 10/13/18 Ricky Martell MD [address] [place] [address] 34741 Consulting Physician Neurological Surgery 11/14/20 Ricky Martell MD [address] [address] Consulting Physician Neurological Surgery 11/30/20 Daniel Steen MD [address] [place] [address] 80298 Consulting Physician Addiction Medicine 09/28/22 Scheduled Active and Recently Administ ered Medications (unrecognized section and content) Medication Order 11/30/2020 12/01/2020 12/02/2020 ceFAZolin (ANCEF) IVPB 2 g (premix) (COMPLETED) 2,000 mg, Intravenous, at 100 mL/hr, Once, On Sat12/02/20 at 0730, For 1 dose, Pre-Procedure, Administer prior to incision., Indication (PRE PROCEDURE): Neurology 0811 (Given - Provid er: Sushila Carroll CRNA) Continuous Medication Order 11/30/2020 12/01/2020 12/02/2020 lactated Ringers infusion 100 mL/hr, Intravenous, Continuous, Starting on Sat12/02/20 at 1100, PACU (only) 1100 (Due) sodium chloride 0.9% (NS) 75 mL/hr, Intravenous, Continuous, Starting on Sat12/02/20 at 0730, Pre-Procedure 0703 (New Bag - Prov ider: Rosalinda Chang RN)0751 (Paused - Provider: Sushila Carroll CRNA - Comment: Switch to gravity)0752 (Restarted - Provider: Sushila Carroll CRNA)0955 (New Bag - Provider: Sushila Carroll CRNA)1014 (Anesthesia Volume Adjustment - Provider: Sushila Carroll CRNA)1222 (Continue to Inpatient Floor - Provider: Brenda Reyes RN)1618 (Stopped - Provider: Lizz Dennison, JOSSELYN) PRN Medication Order 11/30/2020 12/01/2020 12/02/2020 cyclobenzaprine (FLEXERIL) tablet 5 mg 5 mg, Oral, 3 times daily PRN, muscle spasms, Starting on Sat12/02/20 at 1239 HYDROmorphone (DILAUDID) injection 0.5 mg (COMPLETED) 0.5 mg, Intravenous, Every 5 min PRN, Pain, Starting on Sat12/02/20 at 1010, For 6 doses, PACU (only), [] Give if fentanyl not effective or not ordered. [] Do not give more than 3 mg total. 1031 (Given - Provid er: Brenda Reyes RN)1037 (Given - Provider: Brenda Reyes RN)1045 (Given - Provider: Brenda Reyes RN)1055 (Given - Provider: Brenda Reyes RN)1118 (Given - Provider: Brenda Reyes RN)1128 (Given - Provider: Brenda Reyes RN) lidocaine-EPINEPHrine (XYLOCAINE W/EPI) 1 %-1:100,000 10 mL, bupivacaine (PF) (MARCAINE) 0.5 % (5 mg/mL) 10 mL injection (CANCELED) As needed, Starting on Sat12/02/20 at 0913, Intra-Procedure 0913 (Given - Provid er: Ricky Martell MD) oxyCODONE-acetaminophen (PERCOCET) 5-325 mg per tablet 1 tablet 1 tablet, Oral, Every 6 hours PRN, moderate to severe pain, Starting on Sat12/02/20 at 1239 1417 (Given - Provid er: Lizz Dennison RN) sodium chloride (NS) 0.9 % irrigation solution (CANCELED) As needed, Starting on Sat12/02/20 at 0945, Intra-Procedure 0945 (Given - Provid er: Ricky Martell MD) thrombin (recombinant) 5,000 Units, gelatin adsorbable (GELFOAM) 100 cm 1 each topical (CANCELED) As needed, Starting on Sat12/02/20 at 0945, Intra-Procedure 0945 (Given - Provid er: Ricky Martell MD) Scheduled Medication Order 02/18/2022 02/19/2022 02/20/2022 ceFAZolin (ANCEF) IVPB 2 g (premix) (COMPLETED) 2,000 mg, Intravenous, at 100 mL/hr, Once, On Sat02/20/22 at 0700, For 1 dose, Pre-Procedure, Administer prior to incision., Indication (PRE PROCEDURE): Neurology 0850 (Given - Provid er: MATT Victoria) lidocaine 10 mg/mL (1 %) injection 0.2 mL 0.2 mL, Intradermal, Once, On Sat02/20/22 at 0700, For 1 dose, Pre-Procedure, Around site prior to IV insertion 0700 (Due) oxyCODONE-acetaminophen (PERCOCET) 5-325 mg per tablet 1 tablet (COMPLETED) 1 tablet, Oral, Once, On Sat02/20/22 at 1415, For 1 dose 1356 (Given - Provid er: Melissa Davenport RN) Continuous Medication Order 02/18/2022 02/19/2022 02/20/2022 lactated Ringers infusion 100 mL/hr, Intravenous, Continuous, Starting on Sat02/20/22 at 1230, PACU (only) 1230 (Due) sodium chloride 0.9% (NS) 75 mL/hr, Intravenous, Continuous, Starting on Sat02/20/22 at 0700, Pre-Procedure 0644 (New Bag - Prov ider: Maggie Gatica RN)0757 (Paused - Provider: MATT Victoria - Comment: Switch to gravity)0758 (Restarted - Provider: MATT Victoria)0828 (Stopped - Provider: MATT Victoria) PRN Medication Order 02/18/2022 02/19/2022 02/20/2022 fentaNYL (SUBLIMAZE) injection 25 mcg 25 mcg, Intravenous, Every 5 min PRN, Pain, Starting on Sat02/20/22 at 1137, For 4 doses, PACU (only), [] Do not give more than 100 mcg while in PACU. 1304 (Given - Provid er: Lisseth Kim RN)1310 (Given - Provider: Lisseth Kim RN) haloperidol lactate (HALDOL) injection 1 mg 1 mg, Intravenous, Once as needed, Nausea or vomiting, Starting on Sat02/20/22 at 1137, For 1 dose, PACU (only), Administer if ondansetron (Zofran), promethazine (Phenergan), metoclopromide (REGLAN), prochlorperazine (COMPAZINE) ineffective/not ordered, or as directed by anesthesia, as needed for nausea/vomiting May cause QT interval prolongation. hydrALAZINE (APRESOLINE) injection 5 mg 5 mg, Intravenous, Every 15 min PRN, SBP greater than 160 or DBP greater than 90, Starting on Sat02/20/22 at 1137, For 4 doses, PACU (only), [] Do not give more than 20 mg total. [] Hold for HR greater than 100. [] Administer if labetalol or metoprolol ineffective at maximum dose or not ordered. HYDROmorphone (DILAUDID) injection 0.5 mg 0.5 mg, Intravenous, Every 5 min PRN, Pain, Starting on Sat02/20/22 at 1137, For 6 doses, PACU (only), Give if fentanyl not effective or not ordered. Do not give more than 3 mg total. ipratropium-albuteroL (DUO-NEB) 0.5-2.5 mg/3 ml nebulizer solution 3 mL 3 mL, Inhalation, Once as needed, shortness of breath, Starting on Sat02/20/22 at 1137, For 1 dose, PACU (only) labetaloL (NORMODYNE) injection 5 mg 5 mg, Intravenous, Every 5 min PRN, SBP greater than 160 or DBP greater than 90, Starting on Tu02/20/22 at 1137, PACU (only), Do not give more than 20 mg total. Hold for HR less than 50. lidocaine 1% (PF) (XYLOCAINE-MPF) 30 mL, bupivacaine (PF) (MARCAINE) 0.5 % (5 mg/mL) 30 mL injection (CANCELED) As needed, Starting on Sat02/20/22 at 0821, Intra-Procedure 0821 (Given - Provid er: Ricky Martell MD) naloxone (NARCAN) injection 0.1 mg(Linked Group 1) 0.1 mg, Intravenous, As needed, opioid reversal, Starting on Sat02/20/22 at 1137, PACU (only), [] Mix nalOXone (NARCAN) 0.4 mg (1ml) with 9 mL of Normal Saline to total 10 mL. [] Administer 0.1 mg (2.5ml) IV Push every 2 minutes until respiratory rate is 10 or greater. naloxone (NARCAN) injection 0.4 mg(Linked Group 1) 0.4 mg, Intravenous, As needed, opioid reversal, patient is pulseless, breathless, and unresponsive, Starting on Sat02/20/22 at 1137, PACU (only), Call a code first, then administer naloxone dose undiluted IV Push over 30 seconds. ondansetron (ZOFRAN) injection 4 mg 4 mg, Intravenous, Once as needed, nausea, vomiting, Starting on Sat02/20/22 at 1137, For 1 dose, PACU (only), Administer first as needed for nausea/vomiting, or as directed by anesthesia prochlorperazine (COMPAZINE) injection 5 mg 5 mg, Intravenous, Once as needed, nausea, Starting on Sat02/20/22 at 1137, For 1 dose, PACU (only), Administer if ondansetron (Zofran), promethazine (Phenergan), and Metocolopramide (Reglan) ineffective or not ordered, or as directed by anesthesia, as needed for nausea/vomiting sodium chloride (NS) 0.9 % irrigation solution (CANCELED) As needed, Starting on Sat02/20/22 at 0721, Intra-Procedure 0721 (Given - Provid er: Ricky Martell MD) sodium chloride (PF) (NS) flush (CANCELED) As needed, Starting on Sat02/20/22 at 1041, Intra-Procedure 1041 (Given - Provid er: Ricky Martell MD) thrombin (recombinant) 10,000 Units, gelatin adsorbable (GELFOAM) 100 cm 1 each topical (CANCELED) As needed, Starting on Sat02/20/22 at 0721, Intra-Procedure 0721 (Given - Provid er: Ricky Martell MD) Linked Groups Order Group 1: Notify Anesthesiologist (CANCELED) STAT, Until discontinued, Starting on Sat02/20/22 at 1138, Until Specified
Notify anesthesiologist immediately if respiratory rate less than or equal to 8 breaths per minute., PACU (only) And naloxone (NARCAN) injection 0.1 mgJump to med 0.1 mg, Intravenous, As needed, opioid reversal, Starting on Sat02/20/22 at 1137, PACU (only)
[] Mix nalOXone (NARCAN) 0.4 mg (1ml) with 9 mL of Normal Saline to total 10 mL. [] Administer 0.1 mg (2.5ml) IV Push every 2 minutes until respiratory rate is 10 or greater.
And naloxone (NARCAN) injection 0.4 mgJump to med 0.4 mg, Intravenous, As needed, opioid reversal, patient is pulseless, breathless, and unresponsive, Starting on Sat02/20/22 at 1137, PACU (only)
Call a code first, then administer naloxone dose undiluted IV Push over 30 seconds.
Scheduled Medication Order 05/20/2022 05/21/2022 05/22/2022 HYDROmorphone (DILAUDID) injection 1 mg (COMPLETED) 1 mg, Intramuscular, ONCE, 1 dose, On Sat05/22/22 at 1115 1045 (Given - Provid er: Fernanda Esteves RN) Ondansetron (ZOFRAN) tablet 4 mg (COMPLETED) 4 mg, Oral, ONCE, 1 dose, On Sat05/22/22 at 1115 1045 (Given - Provid er: Fernanda Esteves RN) Scheduled Medication Order 09/26/2022 09/27/2022 09/28/2022 acamprosate (CAMPRAL) tablet 333 mg 333 mg, Oral, 3 times daily, First dose on Jazzy 09/27/22 at 1815, DO NOT CRUSH OR CHEW. 2046 (Given - Provider: Drew Lujan RN) 0900 (Given - Provider: Juan Mclaughlin RN) enoxaparin (LOVENOX) syringe 40 mg 40 mg, Subcutaneous, Daily, First dose on Sat09/27/22 at 0900, Administer in abdomen unless otherwise directed by prescriber. Notify physician if patient refuses., Indication: VTE Prophylaxis 814 (Given - Provider: Bettina Mobley RN) 0900 (Given - Provider: Juan Mclaughlin RN) folic acid (FOLVITE) tablet 1 mg (CANCELED) 1 mg, Oral, Daily, First dose on Sat09/26/22 at 2014 2027 (Given - Provider: Elke Leonard, JOSSELYN) folic acid (FOLVITE) tablet 1 mg 1 mg, Oral, Daily, First dose on Sat09/27/22 at 0900 0816 (Given - Provider: Bettina Mobley RN) 0900 (Given - Provider: Juan Mclaughlin RN) multivitamin (THERAGRAN) per tablet 1 tablet (CANCELED) 1 tablet, Oral, Daily, First dose on Sat09/26/22 at 2014 2027 (Given - Provider: Elke Leonard, JOSSELYN) multivitamin (THERAGRAN) per tablet 1 tablet 1 tablet, Oral, Daily, First dose on Sat09/27/22 at 0900 0816 (Given - Provider: Bettina Mobley RN) 0900 (Given - Provider: Juan Mclaughlin RN) N-acetylcysteine (NAC) capsule 600 mg 600 mg, Oral, 2 times daily, First dose on Sat09/27/22 at 2100, Ordering of this medication is restricted. Please select which of the following applies: Initiation of therapy, Provider type: I am an Addiction Medicine Provider 2047 (Given - Provider: Drew Lujan RN) 09 (Given - Provider: Juan Mclaughlin RN) PHENobarbitaL (LUMINAL) tablet 32.4 mg(Linked Group 1) 32.4 mg, Oral, Every 12 hours, First dose on Sat09/28/22 at 1700, For 2 doses PHENobarbitaL (LUMINAL) tablet 32.4 mg(Linked Group 1) 32.4 mg, Oral, Every 24 hours, First dose on Sat09/30/22 at 0500, For 1 dose PHENobarbitaL (LUMINAL) tablet 64.8 mg (COMPLETED)(Linked Group 1) 64.8 mg, Oral, Every 12 hours, First dose on Jazzy 09/27/22 at 1700, For 2 doses 1624 (Given - Provider: Bettina Mobley RN) 0442 (Given - Provider: Drew Lujan RN) PHENobarbital injection 208 mg (COMPLETED)(Linked Group 1) 208 mg (rounded from 205.2 mg = 3 mg/kg 68.4 kg [place] weight), Intramuscular, Every 3 hours, First dose on Jazzy 09/27/22 at 0200, For 2 doses, If volume exceeds 2 mL please draw up dose in multiple syringes. VESICANT, Does patient require REDUCED or STANDARD dosing regimen: STANDARD regimen (NO known risk factors), Standard Therapy Guidelines: Patient does not have risk factors: Less than 65 without respiratory impairment (i.e. COPD, Pneumonia, Rib Fractures), concurrent benzodiazepines or hepatic dysfunction and should receive full dose (10 mg/kg) OR has clinical justification for full dose 0221 (Given - Provider: Katie Tafoya LPN)0539 (Given - Provider: Katie Tafoya LPN) PHENobarbital injection 273 mg (COMPLETED)(Linked Group 1) 273 mg (rounded from 273.6 mg = 4 mg/kg 68.4 kg [place] weight), Intramuscular, Once, On Sat09/26/22 at 2300, For 1 dose, If volume exceeds 2 mL please draw up dose in multiple syringes. VESICANT, Does patient require REDUCED or STANDARD dosing regimen: STANDARD regimen (NO known risk factors), Standard Therapy Guidelines: Patient does not have risk factors: Less than 65 without respiratory impairment (i.e. COPD, Pneumonia, Rib Fractures), concurrent benzodiazepines or hepatic dysfunction and should receive full dose (10 mg/kg) OR has clinical justification for full dose 2217 (Given - Provider: Elke Leonard RN) sodium chloride (PF) (NS) flush 5 mL(Linked Group 2) 5 mL, Intravenous, Every 8 hours scheduled, First dose on Sat09/26/22 at 2200, Saline lock 2200 (Canceled Entry - Provider: Elke Leonard RN) 0600 (Canceled Entry - Provider: Katie Tafoya LPN - Comment: infusing fluids)1400 (Given - Provider: Bettina Mobley RN)2200 (Canceled Entry - Provider: Drew Lujan RN - Comment: infusing) 0600 (Canceled Entry - Provider: Drew Lujan RN - Comment: infusing) sodium chloride 0.9 % 1,000 mL with mvi, adult no.4 with vit K 10 mL, thiamine 100 mg, folic acid 1 mg infusion (COMPLETED) 250 mL/hr, Intravenous, Once, On Sat09/26/22 at 2300, For 1 dose 3 (New Bag - Provider: Kylah Cisneros RN)2256 (Rate/Dose Verify - Provider: Katie Tafoya LPN) 0024 (Paused - Provider: Katie Tafoya LPN)0025 (Restarted - Provider: Katie Tafoya LPN)0052 (Paused - Provider: Katie Tafoya LPN)0054 (Restarted - Provider: Katie Tafoya LPN)0151 (Rate/Dose Verify - Provider: Katie Tafoya LPN) sodium chloride 0.9% (NS) bolus 2,000 mL (COMPLETED) 2,000 mL, Intravenous, at 991.7 mL/hr, Once, On Sat09/26/22 at 2014, For 1 dose 2014 (New Bag - Provider: Elke Leonard RN)221 (Continue to Inpatient Floor - Provider: Elke Leonard RN)225 (Stopped - Provider: Katie Tafoya LPN) thiamine tablet 200 mg (CANCELED) 200 mg, Oral, Daily, First dose on Sat09/26/22 at 2014, For 5 doses 2027 (Given - Provider: Elke Leonard RN) thiamine tablet 200 mg 200 mg, Oral, Daily, First dose on Sat09/27/22 at 0900, For 5 doses 0815 (Given - Provider: Bettina Mobley RN) 0900 (Given - Provider: Juan Mclaughlin RN) topiramate (TOPAMAX) tablet 25 mg 25 mg, Oral, 2 times daily, First dose on Sat09/27/22 at 2100, CATEGORY D HAZARDOUS DRUG use safe handling precautions. Use reference link to view PPE guidelines. Minimize crushing/splitting only to situations where clinically necessary. Do Not Crush or Chew if administering orally due to bitter taste. 2047 (Given - Provider: Drew Lujan RN) 0900 (Given - Provider: Juan Mclaughlin RN) Continuous Medication Order 09/26/2022 09/27/2022 09/28/2022 lactated Ringers infusion 75 mL/hr, Intravenous, Continuous, Starting on Sat09/26/22 at 2150 0302 (New Bag - Provider: Katie Tafoya LPN)1152 (New Bag - Provider: Bettina Mobley, JOSSELYN)1316 (Rate/Dose Change - Provider: Bettina Mobley RN)2358 (New Bag - Provider: Drew Lujan RN) PRN Medication Order 09/26/2022 09/27/2022 09/28/2022 acetaminophen (TYLENOL) tablet 650 mg 650 mg, Oral, Every 4 hours PRN, headaches, mild pain, fever 100.4 F or greater, infusion related reactions, Starting on Sat09/26/22 at 2144 aluminum-magnesium hydroxide-simethicone (MAALOX PLUS) 200-200-20 mg/5 mL suspension 30 mL 30 mL, Oral, Every 4 hours PRN, indigestion, Starting on Sat09/26/22 at 2144 bisacodyL (DULCOLAX) suppository 10 mg 10 mg, Rectal, Daily PRN, constipation, Starting on Sat09/26/22 at 2144, Try oral medications first for constipation. Try rectal medication if oral meds are ineffective, not tolerated, or not ordered. hydrOXYzine (ATARAX) tablet 25 mg 25 mg, Oral, 3 times daily PRN, anxiety, Starting on Jazzy 09/27/22 at 1711 1050 (Given - Provider: Juan Mclaughlin, JOSSELYN) ibuprofen (ADVIL,MOTRIN) tablet 600 mg 600 mg, Oral, Every 6 hours PRN, mild pain, fever 100.4 F or greater, headaches, Starting on Sat09/26/22 at 2144, Give with food. Do Not Crush or Chew if administering orally due to bitter taste. May be crushed if given via tube. LORazepam (ATIVAN) injection 1-4 mg (CANCELED) 1-4 mg, Intravenous, Every 1 hour prn, CIWA score 8 or greater. See admin instructions for dosing details., Starting on Sat09/26/22 at 2011, [] CIWA less than 8: No medical intervention. [] CIWA 8-10: Give LORazepam (ATIVAN) 1 mg: Assess Vital Signs/Pulse Oximeter/CIWA in 4 hours. [] CIWA 11-14: Give LORazepam (ATIVAN) 2 mg: Assess Vital Signs/Pulse Oximeter/CIWA in 2 hours. [] CIWA 15-25: Give LORazepam (ATIVAN) 3 mg: Assess Vital Signs/Pulse Oximeter/CIWA in 1 hours. [] CIWA greater than 25: Give LORazepam (ATIVAN) 4 mg and Notify Physician: Assess Vital Signs/Pulse Oximeter/CIWA in 15 minutes. [] Give oral route if tolerated. If oral not tolerated give IV. If IV route not available give IM. [] Discontinue CIWA protocol if patient is started on IV infusion of Benzodiazepines, Dexmedetomidine or Propofol. VESICANT 2022 (Given - Provider: Elke Leonard, JOSSELYN) magnesium hydroxide (MOM) 400 mg/5 mL suspension 2,400 mg 2,400 mg (30 mL), Oral, Daily PRN, constipation, Starting on Sat09/26/22 at 2144, If no bowel movement in 24 hours after Sennosides (SENNA) administration. melatonin Tab 5 mg 5 mg, Oral, Nightly PRN, Sleep, Starting on Sat09/26/22 at 2144, If still awake in 1 hour proceed to trazodone (Desyrel) nitroGLYCERIN (NITROSTAT) SL tablet 0.4 mg 0.4 mg, Sublingual, Every 5 min PRN, chest pain, Starting on Sat09/26/22 at 2144, For chest pain. May give up to 3 doses. Call physician for chest pain unrelieved by Nitroglycerin, or recurrent chest pain. DO NOT CRUSH OR CHEW. ondansetron (ZOFRAN) injection 4 mg(Linked Group 3) 4 mg, Intravenous, Every 6 hours PRN, nausea, vomiting, Starting on Sat09/26/22 at 2144, Use oral route first, if tolerated. 2358 (Given - Provider: Drew Lujan RN) ondansetron (ZOFRAN-ODT) disintegrating tablet 4 mg(Linked Group 3) 4 mg, Oral, Every 6 hours PRN, nausea, vomiting, Starting on Sat09/26/22 at 2144, Use oral route first, if tolerated. Formulation requires tablet remain in sealed package until immediately prior to dose being administered. 5621 (See Alternative - Provider: Drew Lujan RN) PHENobarbital injection 65 mg 65 mg, Intramuscular, Every 6 hours PRN, Two of the following: SBP greater than 160 or DBP greater than 100, Significant agitation (RASS greater than +2), HR greater than 110, Diaphoresis, tremors, Hallucinations, Starting on Sat09/26/22 at 2144, For 102 hours, VESICANT sodium chloride (PF) (NS) flush 5 mL(Linked Group 2) 5 mL, Intravenous, As needed, line care, Starting on Sat09/26/22 at 2144 sodium chloride 0.9% (NS)(Linked Group 2) 0-150 mL/hr, Intravenous, As needed, To flush line after IV infusions when no maintenance IV ordered or a compatibility issue. Infuse 20ml at the same rate as the secondary infusion, Starting on Sat09/26/22 at 2144, Run as Primary IV. NOT intended for KVO. traZODone (DESYREL) tablet 50 mg 50 mg, Oral, Nightly PRN, sleep, Starting on Sat09/26/22 at 2144, To be administered 1 hour after melatonin if still awake. May repeat x 1 dose in 30 minutes if still awake. Linked Groups Order Group 1: PHENobarbital injection 273 mg (COMPLETED)Jump to med 273 mg (rounded from 273.6 mg = 4 mg/kg 68.4 kg [place] weight), Intramuscular, Once, On Sat09/26/22 at 2300, For 1 dose
If volume exceeds 2 mL please draw up dose in multiple syringes. VESICANT
Does patient require REDUCED or STANDARD dosing regimen: STANDARD regimen (NO known risk factors)
Standard Therapy Guidelines: Patient does not have risk factors: Less than 65 without respiratory impairment (i.e. COPD, Pneumonia, Rib Fractures), concurrent benzodiazepines or hepatic dysfunction and should receive full dose (10 mg/kg) OR has clinical justification for full dose Followed by PHENobarbital injection 208 mg (COMPLETED)Jump to med 208 mg (rounded from 205.2 mg = 3 mg/kg 68.4 kg [place] weight), Intramuscular, Every 3 hours, First dose on Sat09/27/22 at 0200, For 2 doses
If volume exceeds 2 mL please draw up dose in multiple syringes. VESICANT
Does patient require REDUCED or STANDARD dosing regimen: STANDARD regimen (NO known risk factors)
Standard Therapy Guidelines: Patient does not have risk factors: Less than 65 without respiratory impairment (i.e. COPD, Pneumonia, Rib Fractures), concurrent benzodiazepines or hepatic dysfunction and should receive full dose (10 mg/kg) OR has clinical justification for full dose Followed by PHENobarbitaL (LUMINAL) tablet 64.8 mg (COMPLETED)Jump to med 64.8 mg, Oral, Every 12 hours, First dose on Sat09/27/22 at 1700, For 2 doses Followed by PHENobarbitaL (LUMINAL) tablet 32.4 mgJump to med 32.4 mg, Oral, Every 12 hours, First dose on Sat09/28/22 at 1700, For 2 doses Followed by PHENobarbitaL (LUMINAL) tablet 32.4 mgJump to med 32.4 mg, Oral, Every 24 hours, First dose on Sat09/30/22 at 0500, For 1 dose Group 2: Saline lock IV (CANCELED) Routine, Continuous, Starting on Sat09/26/22 at 2145, Until Specified And sodium chloride (PF) (NS) flush 5 mLJump to med 5 mL, Intravenous, As needed, line care, Starting on Sat09/26/22 at 2144 And sodium chloride (PF) (NS) flush 5 mLJump to med 5 mL, Intravenous, Every 8 hours scheduled, First dose on Sat09/26/22 at 2200
Saline lock
And sodium chloride 0.9% (NS)Jump to med 0-150 mL/hr, Intravenous, As needed, To flush line after IV infusions when no maintenance IV ordered or a compatibility issue. Infuse 20ml at the same rate as the secondary infusion, Starting on Sat09/26/22 at 2144
Run as Primary IV. NOT intended for KVO.
Group 3: ondansetron (ZOFRAN-ODT) disintegrating tablet 4 mgJump to med 4 mg, Oral, Every 6 hours PRN, nausea, vomiting, Starting on Sat09/26/22 at 2144
Use oral route first, if tolerated. Formulation requires tablet remain in sealed package until immediately prior to dose being administered.
Or ondansetron (ZOFRAN) injection 4 mgJump to med 4 mg, Intravenous, Every 6 hours PRN, nausea, vomiting, Starting on Sat09/26/22 at 2144
Use oral route first, if tolerated.
Scheduled Medication Order 10/01/2022 10/02/2022 10/03/2022 cloNIDine HCL (CATAPRES) tablet 0.1 mg 0.1 mg, Oral, Every 8 hours scheduled, First dose on Sat10/02/22 at 0600, Hold if SBP 110 or below 0600 (Not Given - Provider: Arcelia Diaz RN - Reason: Other - Comment: pt. BP running low.)1400 (Not Given - Provider: Jessica Kohler RN - Reason: Order parameters not met)2200 (Not Given - Provider: Arcelia Diaz RN - Reason: Other - Comment: BP under 110) 0600 (Hold - Provider: Cassie Cook RN - Reason: Order parameters not met - Comment: sbp [phone] (Given - Provider: Cassie Cook RN) docusate sodium (COLACE) capsule 100 mg 100 mg, Oral, Daily, First dose on Sat10/02/22 at 0900, [] Hold for loose stools. DO NOT CRUSH OR CHEW. 0818 (Given - Provider: Jessica Kohler RN) 0844 (Given - Provider: Cassie Cook RN) enoxaparin (LOVENOX) syringe 40 mg 40 mg, Subcutaneous, Daily, First dose on Sat10/02/22 at 0900, Administer in abdomen unless otherwise directed by prescriber. Notify physician if patient refuses., Indication: VTE Prophylaxis 0818 (Given - Provider: Jessica Kohler RN) 0845 (Given - Provider: Cassie Cook RN) lidocaine patch 1 patch 1 patch, Transdermal, Administer over 12 Hours, Daily, First dose on Sat10/02/22 at 0900, Apply to back for 12 hours, then remove patch for 12 hours. 0814 (Patch Applied - Provider: Jessica Kohler RN)2013 (Patch Removed - Provider: Arcelia Diaz RN) 0845 (Patch Applied - Provider: Cassie Cook, JOSSELYN - Comment: back)1800 (Due: Patch Removed - Provider: Discharge Provider, Automatic - Comment: Time automatically adjusted from order being discontinued) nicotine (NICODERM CQ) 21 mg/24 hr 1 patch 1 patch, Transdermal, Administer over 24 Hours, Daily, First dose on Sat10/02/22 at 0900, U/P Listed Hazardous Drug. Waste Must Be Disposed in [employer] 0816 (Patch Applied - Provider: Jessica Kohler RN) 0845 (Patch Removed - Provider: Cassie Cook, RN)0846 (Patch Applied - Provider: Cassie Cook, RN)1800 (Due: Patch Removed - Provider: Discharge Provider, Automatic - Comment: Time automatically adjusted from order being discontinued) pantoprazole (PROTONIX) EC tablet 40 mg 40 mg, Oral, Daily, First dose on Sat10/02/22 at 0900, DO NOT CRUSH OR CHEW. 0820 (Given - Provider: Jessica Kohler RN) 0844 (Given - Provider: Cassie Cook RN) potassium chloride SA (K-DUR,KLOR-CON) CR tablet 40 mEq (COMPLETED) 40 mEq, Oral, Once, On Sat10/03/22 at 0615, For 1 dose, 40mEq orally x 1 for serum Potassium in range of 3-3.4 mEq/L per Critical Care Electrolyte Replacement Therapy. ORDER repeat potassium level 4 hours after dose. DO NOT CRUSH OR CHEW (if instructed may dissolve tablet(s) in liquid) DO NOT ADMINISTER DISSOLVED TABLET VIA SURGICALLY PLACED TUBE OR TUBE less than 14 Arabic. To administer dissolved tablet(s) mix with 4 ounces of water over 2-3 minutes, stir for 30 seconds prior to administration; rinse dosing cup and administer residual medication to ensure full dose given 0525 (Given - Provid er: Arcelia Diaz RN) sodium chloride (PF) (NS) flush 5 mL(Linked Group 1) 5 mL, Intravenous, Every 8 hours scheduled, First dose on Sat10/02/22 at 0600, Saline lock 0600 (Given - Provider: Arcelia Diaz RN)1400 (Given - Provider: Jessica Kohler RN)2200 (Not Given - Provider: Arcelia Diaz RN - Reason: Other - Comment: pt. infusing) 0600 (Canceled Entry - Provider: Cassie Cook, RN)1400 (Given - Provider: Cassie Cook RN) sodium chloride 0.9 % 1,000 mL with mvi, adult no.4 with vit K 10 mL, thiamine 100 mg, folic acid 1 mg infusion (COMPLETED) 150 mL/hr, Intravenous, Once, On Sat10/02/22 at 0025, For 1 dose 0106 (New Bag - Provider: Danya Anton RN) topiramate (TOPAMAX) tablet 50 mg 50 mg, Oral, Daily, First dose on Sat10/02/22 at 0900, CATEGORY D HAZARDOUS DRUG use safe handling precautions. Use reference link to view PPE guidelines. Minimize crushing/splitting only to situations where clinically necessary. Do Not Crush or Chew if administering orally due to bitter taste. 0817 (Given - Provider: Jessica Kohler RN) 0845 (Given - Provider: Cassie Cook RN) Continuous Medication Order 10/01/2022 10/02/2022 10/03/2022 dextrose 5 % and sodium chloride 0.45 % infusion 75 mL/hr, Intravenous, Continuous, Starting on Sat10/02/22 at 0315, For 12 days 0524 (New Bag - Provider: Arcelia Diaz RN)0813 (Rate/Dose Verify - Provider: Jessica Kohler RN)0832 (Rate/Dose Verify - Provider: Jessica Kohler RN)1353 (Rate/Dose Verify - Provider: Jessica Kohler RN)1548 (Rate/Dose Verify - Provider: Jessica Kohler RN)1549 (New Bag - Provider: Jessica Kohler RN) 0534 (New Bag - Provider: Arcelia Diaz RN) PRN Medication Order 10/01/2022 10/02/2022 10/03/2022 acetaminophen (TYLENOL) tablet 650 mg 650 mg, Oral, Every 4 hours PRN, headaches, mild pain, fever 100.4 F or greater, Starting on Sat10/02/22 at 0430 0447 (Given - Provider: Arcelia Diaz RN) 0845 (Given - Provider: Cassie Cook RN) aluminum-magnesium hydroxide-simethicone (MAALOX PLUS) 200-200-20 mg/5 mL suspension 30 mL 30 mL, Oral, Every 4 hours PRN, indigestion, Starting on Sat10/02/22 at 0249 LORazepam (ATIVAN) injection 1-4 mg(Linked Group 2) 1-4 mg, Intramuscular, Every 1 hour prn, CIWA score 8 or greater. See admin instructions for dosing details., Starting on Sat10/02/22 at 0024, [] CIWA less than 8: No medical intervention. [] CIWA 8-10: Give LORazepam (ATIVAN) 1 mg: Assess Vital Signs/Pulse Oximeter/CIWA in 4 hours. [] CIWA 11-14: Give LORazepam (ATIVAN) 2 mg: Assess Vital Signs/Pulse Oximeter/CIWA in 2 hours. [] CIWA 15-25: Give LORazepam (ATIVAN) 3 mg: Assess Vital Signs/Pulse Oximeter/CIWA in 1 hours. [] CIWA greater than 25: Give LORazepam (ATIVAN) 4 mg and Notify Physician: Assess Vital Signs/Pulse Oximeter/CIWA in 15 minutes. [] Give oral route if tolerated. If oral not tolerated give IV. If IV route not available give IM. [] Discontinue CIWA protocol if patient is started on IV infusion of Benzodiazepines, Dexmedetomidine or Propofol. VESICANT 0137 (See Alternative - Provider: Danya Anton RN)0518 (See Alternative - Provider: Arcelia Diaz RN)1355 (See Alternative - Provider: Jessica Kohler RN)2103 (See Alternative - Provider: Arcelia Diaz RN) 0524 (See Alternative - Provider: Arcelia Diaz RN)0846 (See Alternative - Provider: Cassie Cook RN)1125 (See Alternative - Provider: Cassie Cook, JOSSELYN)1523 (See Alternative - Provider: Cassie Cook RN) LORazepam (ATIVAN) injection 1-4 mg(Linked Group 2) 1-4 mg, Intravenous, Every 1 hour prn, CIWA score 8 or greater. See admin instructions for dosing details., Starting on Sat10/02/22 at 0024, [] CIWA less than 8: No medical intervention. [] CIWA 8-10: Give LORazepam (ATIVAN) 1 mg: Assess Vital Signs/Pulse Oximeter/CIWA in 4 hours. [] CIWA 11-14: Give LORazepam (ATIVAN) 2 mg: Assess Vital Signs/Pulse Oximeter/CIWA in 2 hours. [] CIWA 15-25: Give LORazepam (ATIVAN) 3 mg: Assess Vital Signs/Pulse Oximeter/CIWA in 1 hours. [] CIWA greater than 25: Give LORazepam (ATIVAN) 4 mg and Notify Physician: Assess Vital Signs/Pulse Oximeter/CIWA in 15 minutes. [] Give oral route if tolerated. If oral not tolerated give IV. If IV route not available give IM. [] Discontinue CIWA protocol if patient is started on IV infusion of Benzodiazepines, Dexmedetomidine or Propofol. VESICANT 0137 (See Alternative - Provider: Danya Anton RN)0518 (See Alternative - Provider: Arcelia Diaz, JOSSELYN)1355 (See Alternative - Provider: Jessica Kohler, JOSSELYN)2103 (See Alternative - Provider: Arcelia Diaz RN) 0524 (See Alternative - Provider: Arcelia Diaz RN)0846 (See Alternative - Provider: Cassie Cook, JOSSELYN)1125 (See Alternative - Provider: Cassie Cook, JOSSELYN)1523 (See Alternative - Provider: Cassie Cook RN) LORazepam (ATIVAN) tablet 1-4 mg(Linked Group 2) 1-4 mg, Oral, Every 1 hour prn, CIWA score 8 or greater. See admin instructions for dosing details., Starting on Sat10/02/22 at 0024, [] CIWA less than 8: No medical intervention. [] CIWA 8-10: Give LORazepam (ATIVAN) 1 mg: Assess Vital Signs/Pulse Oximeter/CIWA in 4 hours. [] CIWA 11-14: Give LORazepam (ATIVAN) 2 mg: Assess Vital Signs/Pulse Oximeter/CIWA in 2 hours. [] CIWA 15-25: Give LORazepam (ATIVAN) 3 mg: Assess Vital Signs/Pulse Oximeter/CIWA in 1 hours. [] CIWA greater than 25: Give LORazepam (ATIVAN) 4 mg and Notify Physician: Assess Vital Signs/Pulse Oximeter/CIWA in 15 minutes. [] Give oral route if tolerated. If oral not tolerated give IV. If IV route not available give IM. [] Discontinue CIWA protocol if patient is started on IV infusion of Benzodiazepines, Dexmedetomidine or Propofol. 0137 (Given - Provider: Danya Anton RN)0518 (Given - Provider: Arcelia Diaz RN)1355 (Given - Provider: Jessica Kohler, JOSSELYN)210 (Given - Provider: Arcelia Diaz RN) 0524 (Given - Provider: Arcelia Diaz RN - Comment: CIWA of 14)0846 (Given - Provider: Cassie Cook RN)1125 (Given - Provider: Cassie Cook RN)1523 (Given - Provider: Cassie Cook RN) melatonin Tab 5 mg 5 mg, Oral, Nightly PRN, Sleep, Starting on Sat10/02/22 at 0249 nitroGLYCERIN (NITROSTAT) SL tablet 0.4 mg 0.4 mg, Sublingual, Every 5 min PRN, chest pain, Starting on Sat10/02/22 at 0249, For chest pain. May give up to 3 doses. Call physician for chest pain unrelieved by Nitroglycerin, or recurrent chest pain. DO NOT CRUSH OR CHEW. ondansetron (ZOFRAN-ODT) disintegrating tablet 4 mg 4 mg, Oral, Every 6 hours PRN, nausea, vomiting, Starting on Sat10/02/22 at 0249, Orally disintegrating tablet: Open blister pack and place tablet on the tongue; tablet is formulated to dissolve on the tongue without water; do not split tablet. Formulation requires tablet remain in sealed package until immediately prior to dose being administered. 2102 (Given - Provider: Arcelia Diaz RN) senna (SENOKOT) tablet 8.6 mg 8.6 mg (1 tablet), Oral, 2 times daily PRN, constipation, Starting on Sat10/02/22 at 0249 sodium chloride (PF) (NS) flush 5 mL(Linked Group 1) 5 mL, Intravenous, As needed, line care, Starting on Sat10/02/22 at 024 sodium chloride 0.9% (NS)(Linked Group 1) 0-150 mL/hr, Intravenous, As needed, To flush line after IV infusions when no maintenance IV ordered or a compatibility issue. Infuse 20ml at the same rate as the secondary infusion, Starting on Sat10/02/22 at 0249, Run as Primary IV. NOT intended for KVO. traZODone (DESYREL) tablet 50 mg 50 mg, Oral, Nightly PRN, sleep, Starting on Sat10/02/22 at 0249 Linked Groups Order Group 1: Saline lock IV (CANCELED) Routine, Continuous, Starting on Sat10/02/22 at 0250, Until Specified And sodium chloride (PF) (NS) flush 5 mLJump to med 5 mL, Intravenous, As needed, line care, Starting on Sat10/02/22 at 0249 And sodium chloride (PF) (NS) flush 5 mLJump to med 5 mL, Intravenous, Every 8 hours scheduled, First dose on Sat10/02/22 at 0600
Saline lock
And sodium chloride 0.9% (NS)Jump to med 0-150 mL/hr, Intravenous, As needed, To flush line after IV infusions when no maintenance IV ordered or a compatibility issue. Infuse 20ml at the same rate as the secondary infusion, Starting on Sat10/02/22 at 0249
Run as Primary IV. NOT intended for KVO.
Group 2: LORazepam (ATIVAN) tablet 1-4 mgJump to med 1-4 mg, Oral, Every 1 hour prn, CIWA score 8 or greater. See admin instructions for dosing details., Starting on Sat10/02/22 at 0024
[] CIWA less than 8: No medical intervention. [] CIWA 8-10: Give LORazepam (ATIVAN) 1 mg: Assess Vital Signs/Pulse Oximeter/CIWA in 4 hours. [] CIWA 11-14: Give LORazepam (ATIVAN) 2 mg: Assess Vital Signs/Pulse Oximeter/CIWA in 2 hours. [] CIWA 15-25: Give LORazepam (ATIVAN) 3 mg: Assess Vital Signs/Pulse Oximeter/CIWA in 1 hours. [] CIWA greater than 25: Give LORazepam (ATIVAN) 4 mg and Notify Physician: Assess Vital Signs/Pulse Oximeter/CIWA in 15 minutes. [] Give oral route if tolerated. If oral not tolerated give IV. If IV route not available give IM. [] Discontinue CIWA protocol if patient is started on IV infusion of Benzodiazepines, Dexmedetomidine or Propofol.
Or LORazepam (ATIVAN) injection 1-4 mgJump to med 1-4 mg, Intramuscular, Every 1 hour prn, CIWA score 8 or greater. See admin instructions for dosing details., Starting on Sat10/02/22 at 0024
[] CIWA less than 8: No medical intervention. [] CIWA 8-10: Give LORazepam (ATIVAN) 1 mg: Assess Vital Signs/Pulse Oximeter/CIWA in 4 hours. [] CIWA 11-14: Give LORazepam (ATIVAN) 2 mg: Assess Vital Signs/Pulse Oximeter/CIWA in 2 hours. [] CIWA 15-25: Give LORazepam (ATIVAN) 3 mg: Assess Vital Signs/Pulse Oximeter/CIWA in 1 hours. [] CIWA greater than 25: Give LORazepam (ATIVAN) 4 mg and Notify Physician: Assess Vital Signs/Pulse Oximeter/CIWA in 15 minutes. [] Give oral route if tolerated. If oral not tolerated give IV. If IV route not available give IM. [] Discontinue CIWA protocol if patient is started on IV infusion of Benzodiazepines, Dexmedetomidine or Propofol. VESICANT
Or LORazepam (ATIVAN) injection 1-4 mgJump to med 1-4 mg, Intravenous, Every 1 hour prn, CIWA score 8 or greater. See admin instructions for dosing details., Starting on Sat10/02/22 at 0024
[] CIWA less than 8: No medical intervention. [] CIWA 8-10: Give LORazepam (ATIVAN) 1 mg: Assess Vital Signs/Pulse Oximeter/CIWA in 4 hours. [] CIWA 11-14: Give LORazepam (ATIVAN) 2 mg: Assess Vital Signs/Pulse Oximeter/CIWA in 2 hours. [] CIWA 15-25: Give LORazepam (ATIVAN) 3 mg: Assess Vital Signs/Pulse Oximeter/CIWA in 1 hours. [] CIWA greater than 25: Give LORazepam (ATIVAN) 4 mg and Notify Physician: Assess Vital Signs/Pulse Oximeter/CIWA in 15 minutes. [] Give oral route if tolerated. If oral not tolerated give IV. If IV route not available give IM. [] Discontinue CIWA protocol if patient is started on IV infusion of Benzodiazepines, Dexmedetomidine or Propofol. VESICANT
Scheduled Medication Order 03/03/2023 03/04/2023 03/05/2023 azithromycin (ZITHROMAX) tablet 250 mg 250 mg, Oral, Daily, First dose on Sat03/04/23 at 1500, For 5 doses, Indication: CAP 1618 (Given - Provider: Rosa Faulkner RN) 0831 (Given - Provider: Myla Castillo, JOSSELYN) cefTRIAXone (ROCEPHIN) IVPB 2 g (premix) (COMPLETED) 2,000 mg, Intravenous, at 100 mL/hr, Once, On Sat03/04/23 at 1150, For 1 dose, Indication: CAP 1340 (New Bag - Provider: Katie Low RN)1507 (Stopped - Provider: Katie Low RN) cefTRIAXone (ROCEPHIN) IVPB 2 g (premix) 2,000 mg, Intravenous, at 100 mL/hr, Every 24 hours, First dose on Sat03/05/23 at 0900, For 5 doses, Indication: CAP 0838 (New Bag - Provider: Myla Castillo RN)1006 (Stopped - Provider: Myla Castillo, JOSSELYN) enoxaparin (LOVENOX) syringe 40 mg 40 mg, Subcutaneous, Daily, First dose on Sat03/04/23 at 1500, Administer in abdomen unless otherwise directed by prescriber. Notify physician if patient refuses., Indication: VTE Prophylaxis 1619 (Not Given - Provider: Rosa Faulkner RN - Reason: Patient/family refused) 0832 (Not Given - Provider: Myla Castillo RN - Reason: Patient/family refused) folic acid (FOLVITE) tablet 1 mg 1 mg, Oral, Daily, First dose on Sat03/04/23 at 1500 1618 (Given - Provider: Rosa Faulkner RN) 0831 (Given - Provider: Myla Castillo, JOSSELYN) multivitamin (THERAGRAN) per tablet 1 tablet 1 tablet, Oral, Daily, First dose on Sat03/04/23 at 1500 1500 (Not Given - Provider: Lisa Lopez RN - Reason: Other - Comment: not given prior to coming to unit) 0831 (Given - Provider: Myla Castillo, JOSSELYN) ondansetron (ZOFRAN) injection 4 mg (COMPLETED) 4 mg, Intravenous, Once, On Sat03/04/23 at 0805, For 1 dose 0822 (Given - Provider: Mehreen Kenny, RN) pantoprazole (PROTONIX) injection 40 mg (COMPLETED) 40 mg, Intravenous, Once, On Sat03/04/23 at 0805, For 1 dose, Dilute each vial with 10 mL of 0.9% NaCl. 08 (Given - Provider: Mehreen Kenny, JOSSELYN) sodium chloride (PF) (NS) flush 5 mL(Linked Group 1) 5 mL, Intravenous, Every 8 hours scheduled, First dose on Sat03/04/23 at 1500, Saline lock 1500 (Canceled Entry - Provider: Rosa Faulkner RN)2200 (Canceled Entry - Provider: Lisa Lopez RN - Comment: Given early with ativan dose) 0600 (Canceled Entry - Provider: Liana William RN - Comment: IV fluid infusing) sodium chloride 0.9 % 1,000 mL with mvi, adult no.4 with vit K 10 mL, thiamine 100 mg, folic acid 1 mg infusion (COMPLETED) 50 mL/hr, Intravenous, Once, On Sat03/04/23 at 0830, For 1 dose 0959 (New Bag - Provider: Mehreen Kenny, JOSSELYN) 1133 (Stopped - Provider: Esperanza Martinez RN) sodium chloride 0.9% (NS) bolus 1,000 mL (COMPLETED) 1,000 mL, Intravenous, at 983.6 mL/hr, Once, On Sat03/04/23 at 0755, For 1 dose 0826 (New Bag - Provider: Mehreen Kenny, JOSSELYN)1352 (Stopped - Provider: Katie Low RN) thiamine tablet 200 mg 200 mg, Oral, Daily, First dose on Sat03/04/23 at 1500, For 5 doses 1618 (Given - Provider: Rosa Faulkner, JOSSELYN) 0831 (Given - Provider: Myla Castillo, JOSSELYN) PRN Medication Order 03/03/2023 03/04/2023 03/05/2023 acetaminophen (TYLENOL) tablet 650 mg 650 mg, Oral, Every 4 hours PRN, mild pain, fever 100.4 F or greater, headaches, Starting on Sat03/04/23 at 1337 iopamidoL (ISOVUE-370) 370 mg iodine /mL (76 %) injection 75 mL (COMPLETED) 75 mL, Intravenous, Once in imaging, contrast, Starting on Sat03/04/23 at 0926, For 1 dose 0928 (Contrast Administered - Provider: Margoth Robert, TECHNOLOGIST) LORazepam (ATIVAN) injection 1-4 mg (CANCELED)(Linked Group 2) 1-4 mg, Intravenous, Every 1 hour prn, CIWA score 8 or greater. See admin instructions for dosing details., Starting on Sat03/04/23 at 0807, [] CIWA less than 8: No medical intervention. [] CIWA 8-10: Give LORazepam (ATIVAN) 1 mg: Assess Vital Signs/Pulse Oximeter/CIWA in 4 hours. [] CIWA 11-14: Give LORazepam (ATIVAN) 2 mg: Assess Vital Signs/Pulse Oximeter/CIWA in 2 hours. [] CIWA 15-25: Give LORazepam (ATIVAN) 3 mg: Assess Vital Signs/Pulse Oximeter/CIWA in 1 hours. [] CIWA greater than 25: Give LORazepam (ATIVAN) 4 mg and Notify Physician: Assess Vital Signs/Pulse Oximeter/CIWA in 15 minutes. [] Give oral route if tolerated. If oral not tolerated give IV. If IV route not available give IM. [] Discontinue CIWA protocol if patient is started on IV infusion of Benzodiazepines, Dexmedetomidine or Propofol. VESICANT 0827 (Given - Provider: Mehreen Kenny RN - Comment: CIWA 13)1352 (Given - Provider: Katie Low RN) LORazepam (ATIVAN) injection 1-4 mg(Linked Group 3) 1-4 mg, Intramuscular, Every 1 hour prn, CIWA score 8 or greater. See admin instructions for dosing details., Starting on Sat03/04/23 at 1339, [] CIWA less than 8: No medical intervention. [] CIWA 8-10: Give LORazepam (ATIVAN) 1 mg: Assess Vital Signs/Pulse Oximeter/CIWA in 4 hours. [] CIWA 11-14: Give LORazepam (ATIVAN) 2 mg: Assess Vital Signs/Pulse Oximeter/CIWA in 2 hours. [] CIWA 15-25: Give LORazepam (ATIVAN) 3 mg: Assess Vital Signs/Pulse Oximeter/CIWA in 1 hours. [] CIWA greater than 25: Give LORazepam (ATIVAN) 4 mg and Notify Physician: Assess Vital Signs/Pulse Oximeter/CIWA in 15 minutes. [] Give oral route if tolerated. If oral not tolerated give IV. If IV route not available give IM. [] Discontinue CIWA protocol if patient is started on IV infusion of Benzodiazepines, Dexmedetomidine or Propofol. VESICANT 1619 (See Alternative - Provider: Rosa Faulkner RN)181 (See Alternative - Provider: Lisa Lopez, JOSSELYN)2032 (See Alternative - Provider: Lisa Lopez, JOSSELYN)222 (See Alternative - Provider: Lisa Lopez, JOSSELYN) 0224 (Canceled Entry - Provider: Liana William, JOSSELYN - Comment: IV route)022 (See Alternative - Provider: Liana William, JOSSELYN)0833 (See Alternative - Provider: Myla Castillo, JOSSELYN) LORazepam (ATIVAN) injection 1-4 mg(Linked Group 3) 1-4 mg, Intravenous, Every 1 hour prn, CIWA score 8 or greater. See admin instructions for dosing details., Starting on Sat03/04/23 at 1339, [] CIWA less than 8: No medical intervention. [] CIWA 8-10: Give LORazepam (ATIVAN) 1 mg: Assess Vital Signs/Pulse Oximeter/CIWA in 4 hours. [] CIWA 11-14: Give LORazepam (ATIVAN) 2 mg: Assess Vital Signs/Pulse Oximeter/CIWA in 2 hours. [] CIWA 15-25: Give LORazepam (ATIVAN) 3 mg: Assess Vital Signs/Pulse Oximeter/CIWA in 1 hours. [] CIWA greater than 25: Give LORazepam (ATIVAN) 4 mg and Notify Physician: Assess Vital Signs/Pulse Oximeter/CIWA in 15 minutes. [] Give oral route if tolerated. If oral not tolerated give IV. If IV route not available give IM. [] Discontinue CIWA protocol if patient is started on IV infusion of Benzodiazepines, Dexmedetomidine or Propofol. VESICANT 161 (Given - Provider: Rosa Faulkner RN)1814 (Given - Provider: Lisa Lopez RN)2032 (Given - Provider: Lisa Lopez RN)2226 (Given - Provider: Lisa Lopez RN) 223 (See Alternative - Provider: Liana William, JOSSELYN)228 (Given - Provider: Liana William RN)08 (Given - Provider: Myla Castillo RN) LORazepam (ATIVAN) tablet 1-4 mg(Linked Group 3) 1-4 mg, Oral, Every 1 hour prn, CIWA score 8 or greater. See admin instructions for dosing details., Starting on Sat03/04/23 at 1339, [] CIWA less than 8: No medical intervention. [] CIWA 8-10: Give LORazepam (ATIVAN) 1 mg: Assess Vital Signs/Pulse Oximeter/CIWA in 4 hours. [] CIWA 11-14: Give LORazepam (ATIVAN) 2 mg: Assess Vital Signs/Pulse Oximeter/CIWA in 2 hours. [] CIWA 15-25: Give LORazepam (ATIVAN) 3 mg: Assess Vital Signs/Pulse Oximeter/CIWA in 1 hours. [] CIWA greater than 25: Give LORazepam (ATIVAN) 4 mg and Notify Physician: Assess Vital Signs/Pulse Oximeter/CIWA in 15 minutes. [] Give oral route if tolerated. If oral not tolerated give IV. If IV route not available give IM. [] Discontinue CIWA protocol if patient is started on IV infusion of Benzodiazepines, Dexmedetomidine or Propofol. 1618 (See Alternative - Provider: Rosa Faulkner RN)1814 (See Alternative - Provider: Lisa Lopez RN)2032 (See Alternative - Provider: Lisa Lopez RN)2226 (See Alternative - Provider: Lisa Lopez RN) 0224 (See Alternative - Provider: Liana William, RN)0229 (See Alternative - Provider: Liana William, RN)0833 (See Alternative - Provider: Myla Castillo RN) ondansetron (ZOFRAN) injection 4 mg(Linked Group 4) 4 mg, Intravenous, Every 6 hours PRN, nausea, vomiting, Starting on Sat03/04/23 at 1337, Use oral route first, if tolerated. ondansetron (ZOFRAN-ODT) disintegrating tablet 4 mg(Linked Group 4) 4 mg, Oral, Every 6 hours PRN, nausea, vomiting, Starting on Sat03/04/23 at 1337, Use oral route first, if tolerated. Formulation requires tablet remain in sealed package until immediately prior to dose being administered. PHENobarbital injection 65 mg 65 mg, Intramuscular, Every 6 hours PRN, Two of the following: SBP greater than 160 or DBP greater than 100, Significant agitation (RASS greater than +2), HR greater than 110, Diaphoresis, tremors, Hallucinations, Starting on Sat03/04/23 at 0809, For 102 hours, VESICANT sodium chloride (PF) (NS) 0.9 % contrast line flush 10 mL (COMPLETED)(Linked Group 5) 10 mL, Intravenous, Once in imaging, contrast, Per proofer prepress (Radiology) for line patency check prior to contrast administration, Starting on Sat03/04/23 at 0926, For 1 dose 0930 (Given - Provider: Margoth Robert, TECHNOLOGIST) sodium chloride (PF) (NS) 0.9 % contrast line flush 80 mL (COMPLETED)(Linked Group 5) 80 mL, Intravenous, Once in imaging, contrast, Per proofer prepress (Radiology), Starting on Sat03/04/23 at 0926, For 1 dose, 30 mL BEFORE contrast administration 50 mL AFTER contrast administration 0929 (Given - Provider: Margoth Robert TECHNOLOGIST) sodium chloride (PF) (NS) flush 5 mL(Linked Group 6) 5 mL, Intravenous, As needed, line care, Starting on Sat03/04/23 at 0753 0230 (Given - Provid er: Liana William RN) sodium chloride (PF) (NS) flush 5 mL(Linked Group 1) 5 mL, Intravenous, As needed, line care, Starting on Sat03/04/23 at 1337 sodium chloride 0.9% (NS)(Linked Group 6) 0-150 mL/hr, Intravenous, As needed, To flush line after IV infusions when no maintenance IV ordered or a compatibility issue. Infuse 20ml at the same rate as the secondary infusion, Starting on Sat03/04/23 at 0753, Run as Primary IV. NOT intended for KVO. 1011 (Stopped - Provider: Myla Castillo RN) sodium chloride 0.9% (NS)(Linked Group 1) 0-150 mL/hr, Intravenous, As needed, To flush line after IV infusions when no maintenance IV ordered or a compatibility issue. Infuse 20ml at the same rate as the secondary infusion, Starting on Sat03/04/23 at 1337, Run as Primary IV. NOT intended for KVO. 1011 (Stopped - Provider: Myla Castillo RN) traZODone (DESYREL) tablet 50 mg 50 mg, Oral, Nightly PRN, sleep, Starting on Sat03/04/23 at 1337, May repeat times 1 in 30 minutes if still awake. Linked Groups Order Group 1: Saline lock IV (CANCELED) Routine, Continuous, Starting on Sat03/04/23 at 1338, Until Specified And sodium chloride (PF) (NS) flush 5 mLJump to med 5 mL, Intravenous, As needed, line care, Starting on Sat03/04/23 at 1337 And sodium chloride (PF) (NS) flush 5 mLJump to med 5 mL, Intravenous, Every 8 hours scheduled, First dose on Sat03/04/23 at 1500
Saline lock
And sodium chloride 0.9% (NS)Jump to med 0-150 mL/hr, Intravenous, As needed, To flush line after IV infusions when no maintenance IV ordered or a compatibility issue. Infuse 20ml at the same rate as the secondary infusion, Starting on Sat03/04/23 at 1337
Run as Primary IV. NOT intended for KVO.
Group 2: LORazepam (ATIVAN) tablet 1-4 mg (CANCELED) 1-4 mg, Oral, Every 1 hour prn, CIWA score 8 or greater. See admin instructions for dosing details., Starting on Sat03/04/23 at 0807
[] CIWA less than 8: No medical intervention. [] CIWA 8-10: Give LORazepam (ATIVAN) 1 mg: Assess Vital Signs/Pulse Oximeter/CIWA in 4 hours. [] CIWA 11-14: Give LORazepam (ATIVAN) 2 mg: Assess Vital Signs/Pulse Oximeter/CIWA in 2 hours. [] CIWA 15-25: Give LORazepam (ATIVAN) 3 mg: Assess Vital Signs/Pulse Oximeter/CIWA in 1 hours. [] CIWA greater than 25: Give LORazepam (ATIVAN) 4 mg and Notify Physician: Assess Vital Signs/Pulse Oximeter/CIWA in 15 minutes. [] Give oral route if tolerated. If oral not tolerated give IV. If IV route not available give IM. [] Discontinue CIWA protocol if patient is started on IV infusion of Benzodiazepines, Dexmedetomidine or Propofol.
Or LORazepam (ATIVAN) injection 1-4 mg (CANCELED) 1-4 mg, Intramuscular, Every 1 hour prn, CIWA score 8 or greater. See admin instructions for dosing details., Starting on Sat03/04/23 at 0807
[] CIWA less than 8: No medical intervention. [] CIWA 8-10: Give LORazepam (ATIVAN) 1 mg: Assess Vital Signs/Pulse Oximeter/CIWA in 4 hours. [] CIWA 11-14: Give LORazepam (ATIVAN) 2 mg: Assess Vital Signs/Pulse Oximeter/CIWA in 2 hours. [] CIWA 15-25: Give LORazepam (ATIVAN) 3 mg: Assess Vital Signs/Pulse Oximeter/CIWA in 1 hours. [] CIWA greater than 25: Give LORazepam (ATIVAN) 4 mg and Notify Physician: Assess Vital Signs/Pulse Oximeter/CIWA in 15 minutes. [] Give oral route if tolerated. If oral not tolerated give IV. If IV route not available give IM. [] Discontinue CIWA protocol if patient is started on IV infusion of Benzodiazepines, Dexmedetomidine or Propofol. VESICANT
Or LORazepam (ATIVAN) injection 1-4 mg (CANCELED)Jump to med 1-4 mg, Intravenous, Every 1 hour prn, CIWA score 8 or greater. See admin instructions for dosing details., Starting on Sat03/04/23 at 0807
[] CIWA less than 8: No medical intervention. [] CIWA 8-10: Give LORazepam (ATIVAN) 1 mg: Assess Vital Signs/Pulse Oximeter/CIWA in 4 hours. [] CIWA 11-14: Give LORazepam (ATIVAN) 2 mg: Assess Vital Signs/Pulse Oximeter/CIWA in 2 hours. [] CIWA 15-25: Give LORazepam (ATIVAN) 3 mg: Assess Vital Signs/Pulse Oximeter/CIWA in 1 hours. [] CIWA greater than 25: Give LORazepam (ATIVAN) 4 mg and Notify Physician: Assess Vital Signs/Pulse Oximeter/CIWA in 15 minutes. [] Give oral route if tolerated. If oral not tolerated give IV. If IV route not available give IM. [] Discontinue CIWA protocol if patient is started on IV infusion of Benzodiazepines, Dexmedetomidine or Propofol. VESICANT
Group 3: LORazepam (ATIVAN) tablet 1-4 mgJump to med 1-4 mg, Oral, Every 1 hour prn, CIWA score 8 or greater. See admin instructions for dosing details., Starting on Sat03/04/23 at 1339
[] CIWA less than 8: No medical intervention. [] CIWA 8-10: Give LORazepam (ATIVAN) 1 mg: Assess Vital Signs/Pulse Oximeter/CIWA in 4 hours. [] CIWA 11-14: Give LORazepam (ATIVAN) 2 mg: Assess Vital Signs/Pulse Oximeter/CIWA in 2 hours. [] CIWA 15-25: Give LORazepam (ATIVAN) 3 mg: Assess Vital Signs/Pulse Oximeter/CIWA in 1 hours. [] CIWA greater than 25: Give LORazepam (ATIVAN) 4 mg and Notify Physician: Assess Vital Signs/Pulse Oximeter/CIWA in 15 minutes. [] Give oral route if tolerated. If oral not tolerated give IV. If IV route not available give IM. [] Discontinue CIWA protocol if patient is started on IV infusion of Benzodiazepines, Dexmedetomidine or Propofol.
Or LORazepam (ATIVAN) injection 1-4 mgJump to med 1-4 mg, Intramuscular, Every 1 hour prn, CIWA score 8 or greater. See admin instructions for dosing details., Starting on Sat03/04/23 at 1339
[] CIWA less than 8: No medical intervention. [] CIWA 8-10: Give LORazepam (ATIVAN) 1 mg: Assess Vital Signs/Pulse Oximeter/CIWA in 4 hours. [] CIWA 11-14: Give LORazepam (ATIVAN) 2 mg: Assess Vital Signs/Pulse Oximeter/CIWA in 2 hours. [] CIWA 15-25: Give LORazepam (ATIVAN) 3 mg: Assess Vital Signs/Pulse Oximeter/CIWA in 1 hours. [] CIWA greater than 25: Give LORazepam (ATIVAN) 4 mg and Notify Physician: Assess Vital Signs/Pulse Oximeter/CIWA in 15 minutes. [] Give oral route if tolerated. If oral not tolerated give IV. If IV route not available give IM. [] Discontinue CIWA protocol if patient is started on IV infusion of Benzodiazepines, Dexmedetomidine or Propofol. VESICANT
Or LORazepam (ATIVAN) injection 1-4 mgJump to med 1-4 mg, Intravenous, Every 1 hour prn, CIWA score 8 or greater. See admin instructions for dosing details., Starting on Sat03/04/23 at 1339
[] CIWA less than 8: No medical intervention. [] CIWA 8-10: Give LORazepam (ATIVAN) 1 mg: Assess Vital Signs/Pulse Oximeter/CIWA in 4 hours. [] CIWA 11-14: Give LORazepam (ATIVAN) 2 mg: Assess Vital Signs/Pulse Oximeter/CIWA in 2 hours. [] CIWA 15-25: Give LORazepam (ATIVAN) 3 mg: Assess Vital Signs/Pulse Oximeter/CIWA in 1 hours. [] CIWA greater than 25: Give LORazepam (ATIVAN) 4 mg and Notify Physician: Assess Vital Signs/Pulse Oximeter/CIWA in 15 minutes. [] Give oral route if tolerated. If oral not tolerated give IV. If IV route not available give IM. [] Discontinue CIWA protocol if patient is started on IV infusion of Benzodiazepines, Dexmedetomidine or Propofol. VESICANT
Group 4: ondansetron (ZOFRAN-ODT) disintegrating tablet 4 mgJump to med 4 mg, Oral, Every 6 hours PRN, nausea, vomiting, Starting on Sat03/04/23 at 1337
Use oral route first, if tolerated. Formulation requires tablet remain in sealed package until immediately prior to dose being administered.
Or ondansetron (ZOFRAN) injection 4 mgJump to med 4 mg, Intravenous, Every 6 hours PRN, nausea, vomiting, Starting on Sat03/04/23 at 1337
Use oral route first, if tolerated.
Group 5: sodium chloride (PF) (NS) 0.9 % contrast line flush 10 mL (COMPLETED)Jump to med 10 mL, Intravenous, Once in imaging, contrast, Per proofer prepress (Radiology) for line patency check prior to contrast administration, Starting on Sat03/04/23 at 0926, For 1 dose And sodium chloride (PF) (NS) 0.9 % contrast line flush 80 mL (COMPLETED)Jump to med 80 mL, Intravenous, Once in imaging, contrast, Per proofer prepress (Radiology), Starting on Sat03/04/23 at 0926, For 1 dose
30 mL BEFORE contrast administration 50 mL AFTER contrast administration
Group 6: Insert peripheral IV (COMPLETED) JOHAN, Once, On Sat03/04/23 at 0754, For 1 occurrence And Saline lock IV (CANCELED) JOHAN, Once, On Sat03/04/23 at 0754, For 1 occurrence And sodium chloride (PF) (NS) flush 5 mLJump to med 5 mL, Intravenous, As needed, line care, Starting on Sat03/04/23 at 0753 And sodium chloride 0.9% (NS)Jump to med 0-150 mL/hr, Intravenous, As needed, To flush line after IV infusions when no maintenance IV ordered or a compatibility issue. Infuse 20ml at the same rate as the secondary infusion, Starting on Sat03/04/23 at 0753
Run as Primary IV. NOT intended for KVO.
Scheduled Medication Order 04/19/2023 04/20/2023 04/21/2023 dicyclomine (BENTYL) injection 20 mg (COMPLETED) 20 mg, Intramuscular, ONCE, 1 dose, On Sat04/21/23 at 1430 1408 (Given - Provid er: Jamil Cordero RN) Scheduled Medication Order 11/08/2024 11/09/2024 11/10/2024 bisacodyL (DULCOLAX) suppository 10 mg 10 mg, Rectal, Daily, First dose on Sat11/09/24 at 1930, [] Until BM, then discontinue. 1930 (Not Given - Provider: Arcelia Diaz RN - Reason: Patient/family refused) 0900 (Not Given - Provider: Fabiana Joseph RN - Reason: Patient/family refused) ceFAZolin (ANCEF) IVPB 2 g (premix) (COMPLETED) 2,000 mg, Intravenous, at 100 mL/hr, Once, On Sat11/09/24 at 1300, For 1 dose, Pre-Procedure, Administer prior to incision., Indication (PRE PROCEDURE): Neurology 1433 (Given - Provider: MATT Brown) 1400 (Stopped - Provider: Fabiana Joseph, JOSSELYN) ceFAZolin (ANCEF) IVPB 2 g (premix) (COMPLETED) 2,000 mg, Intravenous, at 100 mL/hr, Every 8 hours, First dose on Sat11/09/24 at 2200, For 2 doses, Starting 8 hours after pre-procedure dose x 2 doses., Indication (POST PROCEDURE): Neurology 2116 (New Bag - Provider: Arcelia Diaz RN) 0501 (New Bag - Provider: Arcelia Diaz RN)1437 (Stopped - Provider: Fabiana Joseph RN) cyclobenzaprine (FLEXERIL) tablet 10 mg 10 mg, Oral, Every 8 hours scheduled, First dose on Sat11/09/24 at 1930 1942 (Given - Provider: Arcelia Diaz RN) 0501 (Given - Provider: Arcelia Diaz RN)1223 (Given - Provider: Fabiana Joseph, JOSSELYN)1400 (Canceled Entry - Provider: Venessa Cobb RN) DULoxetine (CYMBALTA) DR capsule 30 mg 30 mg, Oral, Daily, First dose on Sat11/10/24 at 0900, DO NOT CRUSH OR CHEW. 0924 (Not Given - Provider: Fabiana Joseph RN - Reason: Patient/family refused) nicotine (NICODERM CQ) 21 mg/24 hr 1 patch 1 patch, Transdermal, Administer over 24 Hours, Daily, First dose on Sat11/09/24 at 2044, U/P Listed Hazardous Drug. Waste Must Be Disposed in [employer] Waste Container 2036 (Patch Applied - Provider: Arcelia Diaz RN) 0900 (Patch Applied - Provider: Fabiana Joseph RN)0924 (Patch Removed - Provider: Fabiana Joseph RN)1535 (Due: Patch Removed - Provider: Discharge Provider, Automatic - Comment: Time automatically adjusted from order being discontinued) senna-docusate (SENNA-S) 8.6-50 mg per tablet 2 tablet 2 tablet, Oral, 2 times daily, First dose on Sat11/09/24 at 2100, [] Hold for loose stools. Do Not Crush or Chew if administering orally due to bitter taste. May be crushed if given via tube. 2100 (Not Given - Provider: Arcelia Diaz RN - Reason: Patient/family refused) 0900 (Not Given - Provider: Fabiana Joseph RN - Reason: Patient/family refused) Continuous Medication Order 11/08/2024 11/09/2024 11/10/2024 sodium chloride 0.9% (NS) (CANCELED) 75 mL/hr, Intravenous, Continuous, Starting on Sat11/09/24 at 1300, Pre-Procedure 1245 (New Bag - Provider: Annelise Short RN)1402 (Paused - Provider: MATT Brown - Comment: Switch to gravity)1403 (Restarted - Provider: MATT Brown)1552 (Stopped - Provider: MATT Brown) 1536 (Stopped - Provider: Fabiana Joseph RN) sodium chloride 0.9% (NS) (CANCELED) 75 mL/hr, Intravenous, Continuous, Starting on Sat11/09/24 at 1900 1822 (New Bag - Provider: Jt Guerrero RN) 1536 (Stopped - Provider: Fabiana Joseph RN) PRN Medication Order 11/08/2024 11/09/2024 11/10/2024 acetaminophen (TYLENOL) tablet 650 mg 650 mg, Oral, Every 4 hours PRN, mild pain, fever 100.4 F or greater, Starting on Sat11/09/24 at 1802 bisacodyL (DULCOLAX) suppository 10 mg 10 mg, Rectal, Daily PRN, constipation, Starting on Sat11/09/24 at 1802, Try oral meds first. [place] rectal route for when oral meds are ineffective, not tolerated, or not ordered. diphenhydrAMINE (BENADRYL) tablet 25 mg 25 mg, Oral, Every 4 hours PRN, itching, Starting on Sat11/09/24 at 1802 fentaNYL (SUBLIMAZE) inj syringe 25 mcg (CANCELED) 25 mcg, Intravenous, Every 5 min PRN, Pain, Starting on Sat11/09/24 at 1649, For 4 doses, PACU (only), [] Do not give more than 100 mcg while in PACU. 1702 (Given - Provider: Rosa Faulkner RN)1708 (Given - Provider: Rosa Faulkner RN) HYDROmorphone (DILAUDID) injection 0.25-0.5 mg 0.25-0.5 mg, Intravenous, Every 3 hours PRN, moderate to severe pain, Starting on Sat11/09/24 at 1802, [] Initiate with 0.25 mg IV every 3 hours prn moderate to severe pain. [] For unrelieved pain, may repeat 0.25 mg IV dose within 30 minutes of initial dose. [] If pain is RELIEVED after repeat dose, change to 0.5 mg IV every 3 hours prn moderate to severe pain. [] If pain is UNrelieved after repeat dose, or patient requires dose reduction, call physician. [] May use IV for breakthrough pain or if unable to tolerate oral route. 2037 (Given - Provider: Arcelia Diaz, JOSSELYN)2112 (Given - Provider: Arcelia Diaz RN - Comment: 30 minute pain reassessment. will get 0.5mg after this dose.) 0055 (Given - Provider: Arcelia Diaz RN)0407 (Given - Provider: Arcelia Diaz RN)0937 (Given - Provider: Fabiana Joseph, RN)1223 (Given - Provider: Fabiana Joseph, RN) HYDROmorphone (DILAUDID) injection 0.5 mg (CANCELED) 0.5 mg, Intravenous, Every 5 min PRN, Pain, Starting on Sat11/09/24 at 1649, For 6 doses, PACU (only), Give if fentanyl not effective or not ordered. Do not give more than 3 mg total. 1717 (Given - Provider: Rosa Faulkner RN)1726 (Given - Provider: Rosa Faulkner RN) hydrOXYzine (ATARAX) tablet 25 mg 25 mg, Oral, 3 times daily PRN, anxiety, Starting on Sat11/09/24 at 1802 lidocaine 1% (PF) (XYLOCAINE-MPF) 20 mL, BUPivacaine (PF) (MARCAINE) 0.5 % (5 mg/mL) 20 mL injection (CANCELED) As needed, Starting on Sat11/09/24 at 1451, Intra-Procedure 1451 (Given - Provider: Ricky Martell MD) magnesium hydroxide (MOM) 400 mg/5 mL suspension 2,400 mg 2,400 mg (30 mL), Oral, Daily PRN, constipation, constipation, Starting on Sat11/09/24 at 1802 methylPREDNISolone acetate (DEPO-medrol) injection (CANCELED) As needed, Starting on Sat11/09/24 at 1621, Intra-Procedure 1621 (Given - Provider: Ricky Martell MD - Comment: Surgical site) naloxone (NARCAN) injection 0.1 mg(Linked Group 1) 0.1 mg, Intravenous, As needed, opioid reversal, For respiratory rate less than or equal to 8 per minute., Starting on Sat11/09/24 at 1802, Mix nalOXone (NARCAN) 0.4 mg (1mL) with 9 mL of Normal Saline to total 10 mL. Administer 0.1 mg (2.5mL) IV Push every 2 minutes until respiratory rate is 10 or greater. naloxone (NARCAN) injection 0.4 mg(Linked Group 1) 0.4 mg, Intravenous, As needed, opioid reversal, patient is pulseless, breathless, and unresponsive, Starting on Sat11/09/24 at 1802, Call a code first, then administer naloxone dose undiluted IV Push over 30 seconds. ondansetron (ZOFRAN) injection 4 mg 4 mg, Intravenous, Every 6 hours PRN, nausea, vomiting, Starting on Sat11/09/24 at 1802 oxyCODONE-acetaminophen (PERCOCET) 5-325 mg per tablet 1-2 tablet 1-2 tablet, Oral, Every 4 hours PRN, moderate to severe pain, Starting on Sat11/09/24 at 1802, [] Initiate with 1 tablet oral every 4 hours prn moderate to severe pain. [] For unrelieved pain, may repeat one tablet oral dose within 60 minutes of initial dose. [] If pain is RELIEVED after repeat dose, change to two tablets of 5/325 mg oral every 4 hours prn moderate to severe pain. [] If pain is UNrelieved after repeat dose, or patient requires dose reduction, call physician. 1821 (Given - Provider: Jt Guerrero RN)1904 (Given - Provider: Jt Guerrero RN) 0132 (Given - Provider: Arcelia Diaz RN)0641 (Given - Provider: Arcelia Diaz RN)1126 (Given - Provider: Fabiana Joseph, JOSSELYN) sodium chloride (NS) 0.9 % irrigation solution (CANCELED) As needed, Starting on Sat11/09/24 at 1615, Intra-Procedure 1615 (Given - Provider: Ricky Martell MD - Comment: Plus 450mL Irrisept) thrombin (recombinant) 10,000 Units, gelatin adsorbable (GELFOAM) 100 cm 1 each topical (CANCELED) As needed, Starting on Sat11/09/24 at 1451, Intra-Procedure 1451 (Given - Provider: Ricky Martell MD - Comment: PRN for hemostasis.) traZODone (DESYREL) tablet 50 mg 50 mg, Oral, Nightly PRN, sleep, Starting on Sat11/09/24 at 1802, [] May repeat once in 30 minutes if still awake. Linked Groups Order Group 1: naloxone (NARCAN) injection 0.1 mgJump to med 0.1 mg, Intravenous, As needed, opioid reversal, For respiratory rate less than or equal to 8 per minute., Starting on Sat11/09/24 at 1802, Mix nalOXone (NARCAN) 0.4 mg (1mL) with 9 mL of Normal Saline to total 10 mL. Administer 0.1 mg (2.5mL) IV Push every 2 minutes until respiratory rate is 10 or greater. And Notify physician (CANCELED) STAT, Until discontinued, Starting on Sat11/09/24 at 1803, Until Specified, Respiratory rate less than: 8, For respiratory rate less than or equal to 8, notify physician and/or appropriate staff for additional orders. And naloxone (NARCAN) injection 0.4 mgJump to med 0.4 mg, Intravenous, As needed, opioid reversal, patient is pulseless, breathless, and unresponsive, Starting on Sat11/09/24 at 1802, Call a code first, then administer naloxone dose undiluted IV Push over 30 seconds. Goals (unrecognized section and content) Goals may be documented in a n alternate section FOR RECORDS PERTAINING TO PATIENTS WHO ARE OR HAVE BEEN ENROLLED IN A CHEMICAL DEPENDENCY/SUBSTANCEABUSE PROGRAM, SOME INFORMATION MAY BE OMITTED. This clinical summary was aggregated from multiple sources. Caution should be exercised in using it in the provision of clinical care. This summary normalizes information from multiple sources, and as a consequence, information in this document may materially change the coding, format and clinical context of patient data. In addition, data may be omitted in some cases. CLINICAL DECISIONS SHOULD BE BASED ON THE PRIMARY CLINICAL RECORDS. [employer] provides no warranty or guarantee of the accuracy or completeness of information in this document.
[2025-02-06 09:57] LABS: Barbiturate Urine NEGATIVE (< 200 ng/mL); Benzodiazepine Urine NEGATIVE (< 200 ng/mL); PCP Urine NEGATIVE (< 25 ng/mL); THC Urine PRESUMPTIVE POSITIVE (< 50 ng/mL)
[2025-02-06 10:02] LABS: AST(SGOT) 168 U/L (<=37); Alanine Aminotransfer ALT/SGPT 98 U/L (<=46); Albumin, Serum 5.1 g/dL (3.5-5.0); Alkaline Phosphatase 78 U/L (40-129); Anion Gap 15 (5-15); BUN 4 mg/dL (4-19); BUN/Creat Ratio 4.7 RATIO (10-20); Calcium,Total 9.1 mg/dL (7.6-11.0); Carbon Dioxide 26.0 mmol/L (21.0-32.0); Chloride 93 mmol/L (98-108); Estimated Creatinine Clearance 106.28 ml/min (50-250); Globulin 3.1 g/dL (2.2-4.2); Glucose 127 mg/dL (70-99); Potassium 4.0 mmol/L (3.3-5.1)
[2025-02-06 10:06] LABS: Alcohol, Blood (Medical)-Serum 333.0 mg/dL (<=10.0)
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
[2025-02-06] MEDS: Nicotine (PBKC) 21 MG Patch TD (10:36)
--- NOTE | 2025-02-06 10:36 | PCA ---
RAMP CONTRACT SIGNED AND WENT WITH MAIL MANAGER TO [facility]
--- OUTSIDE RECORDS SUMMARY | 2025-02-06 10:47 | XMS RPT_ITS | CCD ---
[facility] Organization [facility] Providers Care Console Operator Name Role Phone Unavailable Unavailable Unavailable Sandro Parker Unavailable Unavailable Sandro Parker Unavailable Unavailable CreasapSean WJoshua Unavailable Unavailable CreasaCoretta emersons WJoshua Unavailable Unavailable JIMI PAYNESEN Unavailable Unavailable JIMI PAYNESEN Unavailable Unavailable AKHIL ROSADO Unavailable Unavailable Lucio Roper Primary Care Provider Unavailable Primary Care Provider Unavailabl e Lucio Roper Primary Care Provider Nina De Jesus Unavailable Unavailable Rylie Gore Primary Care Provider Rylie Gore Primary Care Provider [phone] ALEJO DUEÑAS Admitting ALEJO John Attending ALEJO John Consulting RYLIE Means Primary Care Unavailable JALIL FISHER Consulting Unavailable ALEJO DUEÑAS Admitting ALEJO John Referring RYLIE Means Primary Care Unavailable Rylie Gore Unavailable Rylie Gore Primary Care Provider Lucio Roper Primary Care Provider Rylie Gore CNP Primary Care Provider Rylie Gore CNP Unavailable [phone] Nina De Jesus MA Unavailable Unavailable Rylie Gore CNP Primary Care Provider Rylie Gore CNP Primary Care Provider Sofía SALDAÑA, Rylie Dolly Unavailable Nina De Jesus MA Unavailable Unavailable Ricky Martell MD Unavailable RYLIE GORE Primary Care Unavailable RYLIE GORE Primary Care Unavailable VIAU, JALIL BLAYNE Admitting Unavailable VIAU, JALIL BLAYNE Referring Unavailable SOFÍA, RYLIE DOLLY Primary Care Unavailable CHOPKO, RICKY WOLODYMYR Admitting Unavail able CHOPKO, RICKY WOLODYMYR Referring Unavail able SOFÍA, RYLIE DOLLY Primary Care Unavailable CHOPKO, RICKY WOLODYMYR Admitting Unavail able CHOPKO, RICKY WOLODYMYR Referring Unavail able SOFÍA, RYLIE BARROSOE Primary Care Unavailable Ricky Martell MD Unavailable Nina De Jesus MA Unavailable Unavailable Sofía SECOND MATE, Rylie Barrosoe Unavailable Sofía SALDAÑA, Rylie Alberto Primary Care Provider [phone] Gore PIPER, Rylie Barrosoe Unavailable [phone] Nina De Jesus MA Unavailable Unavailable Ricky Martell MD Unavailable Ricky Martell MD Unavailable Gore PIPER, Rylie Dolly Unavailable Nina De Jesus MA Unavailable Unavailable Ricky Martell MD Unavailable Ricky Martell MD Unavailable No, Physician Primary Care Provider Unavailabl RYLIE Marsh Attending Unavailable RYLIE VILLARREAL Referring Unavailable RYLIE GOREE Primary Care Unavailable Gore PIPER, Rylie Dolly Primary Care Provider [phone] James Dawson CNP Primary Care Provider Sofía SALDAÑA, Rylie Dolly Primary Care Provider Margoth Cotter Unavailable Unavailable Gore FHA UNDERWRITER-SECOND MATE, Rylie Primary Care Provider GORE, RYLIE Primary Care Unavailable LUIS WILL Attending Unavailable GORE, RYLIE Primary Care Provider [phone] Dr. Masha Perdomo Emergency Provider Popeye, Dr. Pagan Admit Provider Dr. Latasha Nye Attending Provider Dr. Latasha Nye Other Provider Daniel Steen MD Unavailable Sofía SECOND MATE, Rylie Dolly Unavailable Jasbir CHOPRA, Ricky Maguire Unavailable [phone] Jasbir CHOPRA, Ricky Maguire Unavailable [phone] Sofía SECOND MATE, [facility] Primary Care Provider Blake ARCOS, Cathy Dooley Unavailable Unavailable Margoth Cotter Unavailable Unavailable Sofía FHA UNDERWRITER-SECOND MATE, [place] Primary Care Provider [phone] Kendrick Garcia Unavailable GORE, RYLIE Primary Care Unavailable HIEU, ANDRÉS L Attending Unavailable HIEU, ANDRÉS L Referring Unavailable GORE, RYLIE Primary Care Unavailable HIEU, ANDRÉS L Attending Unavailable SELF, SELF Referring Unavailable TATO KAMINSKI Attending Unavailable GORE, RYLIE Primary Care Unavailable Gore SECOND MATE, Rylie Dolly Primary Care Provider Margoth Cotter Unavailable Unavailable BLANCA COREY Attending Unavailabl e GORE, RYLIE DOLLY Primary Care Unavailable GORE, RYLIE Primary Care Provider Reji Pepper MD Emergency Provider [phone] de Kenney DO, Dr. Saldivar Admit Provider Unavail able de Kenney DO, Dr. Saldivar Attending Provider Unav ailable de Kenney DO, Dr. Saldivar Other Provider Unavail able Roseann SUTTON, Dr. Bradford Attending Provider Karol SUTTON, Dr. Banks Other Provider Karol SUTTON, Dr. Banks Attending Provider Luis Burt Admitting Unavailable OOTDR MEND Primary Care Unavailable Alejo Whitfield Attending Unavailable Luis Burt Consulting Unavailable Terana, Kunal Consulting Unavailable Alejo Whitfield Consulting Unavailable Kunal Roberson Attending Unavailable Luis Burt Consulting Unavailable OOTDR MEND Primary Care Unavailable Alejo Whitfield Attending Unavailable Luis Burt Admitting Unavailable Karol, Kunal Consulting Unavailable Luis Burt Attending Unavailable KUNAL POWELL Attending Unavailable GORE, RYLIE DOLLY Primary Care Unavailable GORE, RYLIE DOLLY Primary Care Unavailable VIAU, JALIL KENT Attending Unavailable GORE, RYLIE DOLLY Primary Care Unavailable GORE, RYLIE DOLLY Attending Unavailable GORE, RYLIE DOLLY Primary Care Unavailable GORE, RYLIE DOLLY Attending Unavailable GORE, RYLIE DOLLY Primary Care Unavailable FAIR, NAUN CRAFT Attending Unavailable GORE, RYLIE DOLLY Primary Care Unavailable FAIR, NAUN CRAFT Attending Unavailable FAIR, NAUN CRAFT Attending Unavailable GORE, RYLIE DOLLY Primary Care Unavailable SOFI FARR Attending Unavailable GORE, RYLIE DOLLY Primary Care Unavailable GORE, RYLIE DOLLY Primary Care Unavailable FAIR, NAUN CRAFT Attending Unavailable GORE, RYLIE DOLLY Primary Care Unavailable VIAU, JALIL KENT Admitting Unavailable VIAU, JALIL KENT Attending Unavailable GORE, RYLIE DOLLY Primary Care Unavailable FEMI CAMPBELL Attending Unavailable VIAU, JALIL KENT Attending Unavailable VIAU, JALIL KENT Referring Unavailable GORE, RYLIE DOLLY Primary Care Unavailable JAMES ALFORD Attending Unavailable FAIR, NAUN CRAFT Admitting Unavailable FAIR, NAUN CRAFT Referring Unavailable GORE, RYLIE DOLLY Primary Care Unavailable BLANCA DIEHL Attending Unavailable FAIR, NAUN RCAFT Admitting Unavailable FAIR, NAUN CRAFT Referring Unavailable GORE, RYLIE DOLLY Primary Care Unavailable CHOPKO, RICKY WOLODYMYR Referring Unavail able CHOPKO, RICKY WOLODYMYR Attending Unavail able GORE, RYLIE DOLLY Primary Care Unavailable CHOPKO, RICKY WOLODYMYR Referring Unavail able ROC OMER Attending Unavailable CHOPKO, RICKY WOLODYMYR Admitting Unavail able GORE, RYLIE DOLLY Primary Care Unavailable CHOPKO, RICKY RICHEYODYMYR Attending Unavail able CHOPKO, RICKY WOLODYMYR Admitting Unavail able GORE, RYLIE DOLLY Primary Care Unavailable Allergies Allergy Classification Reported Allergen(s) Allergy Type Date of Onset Reaction(s) Facility (11 sources) Adhesive Tape-Silicones; Translations: [ADHESIVE TAPE-SILICONES] Propensity to adverse reactions to drug Other (See Comments) [facility] Medications Current Medications Medication Drug Class(es) Dates Sig (Normalized) Sig (Original) acetaminophen 325 mg / HYDROcodone bitartrate 5 mg oral tablet (4 sources) Opioid Agonist Start: 05-22-2022 End: 05-27-2022 take 1 tablet by mouth every six hours as needed for pain hydroCODone-acetam inophen 5-325 MG tablet Indications: Contusion of scalp, initial encounter , Neck sprain, initial encounter , Contusion of chest wall, unspecified laterality, initial encounter Take 1 tablet by mouth every 6 hours as needed for Moderate Pain for up to 5 days. 10 tablet 05/22/2022 Active Start: 07-01-2018 End: 07-01-2018 HYDROcodone-acetaminophen (N ORCO) 5-325 mg per tablet 1 tablet amoxicillin 875 mg / clavulanate 125 mg oral tablet (12 sources) Penicillin-class Antibacterial Start: 03-19-2024 End: 03-26-2024 take 1 tablet by mouth twice daily amoxicillin-clavulanate (Augmentin) 875-125 mg per tablet Take 1 (one) tablet by mouth 2 (two) times a day for 7 days . 14 tablet 03/19/2024 03/26/2024 Active Start: 03-05-2023 End: 08-22-2023 take 1 tablet by mouth twice daily amoxicillin-clavulanate (AUGMENTIN) 875-125 mg per tablet Take 1 (one) tablet by mouth 2 (two) times a day . 14 tablet 0 03/05/2023 08/22/2023 Discontinued busPIRone hydrochloride 5 mg oral tablet (3 sources) Start: 05-22-2019 End: 11-18-2019 take 2 tablets by mouth twice daily busPIRone (BUSPAR) 5 MG tablet Take 2 (two) tablets (10 mg total) by mouth 2 (two) times a day . 120 tablet 5 05/22/2019 11/18/2019 Active cephalexin 500 mg oral capsule (1 source) Cephalosporin Antibacterial Start: 07-01-2018 End: 07-08-2018 take 1 capsule by mouth three times daily cephALEXin (KEFLEX) 500 MG capsule Take 1 (one) capsule (500 mg total) by mouth 3 (three) times a day for 7 days . 21 capsule 0 07/01/2018 07/08/2018 Active cetirizine hydrochloride 10 mg chewable tablet (10 sources) Histamine-1 Receptor Antagonist Start: 03-23-2022 cetirizine (ZYRTEC) 10 MG chewable tablet Indications: Rash in adult Chew and Swallow 1 (one) tablet (10 mg total) daily for 14 days . 14 tablet 0 03/23/2022 Active chlordiazePOXIDE hydrochloride 10 mg oral capsule (2 sources) Benzodiazepine Start: 11-06-2018 chlordiazePOXIDE (LIBRIUM) 10 MG capsule Indications: Uncomplicated alcohol dependence (HCC) (Days supply per fill:11 days Tid for 2 days then bid for 2 days and then qhs for 1 week . 17 capsule 0 11/06/2018 Active cyclobenzaprine hydrochloride 10 mg oral tablet (20 sources) Muscle Relaxant Start: 01-11-2025 End: 01-21-2025 take 1 tablet by mouth three times daily as needed for muscle spasms cyclobenzaprine (FLEXERIL) 10 MG tablet Indications: Post-op pain Take 1 (one) tablet (10 mg total) by mouth 3 (three) times a day as needed for muscle spasms . 30 tablet 01/11/2025 01/21/2025 Active Start: 12-14-2024 End: 12-24-2024 take 1 tablet by mouth three times daily as needed for muscle spasms cyclobenzaprine (FLEXERIL) 10 MG tablet Indications: Post-op pain Take 1 (one) tablet (10 mg total) by mouth 3 (three) times a day as needed for muscle spasms . 30 tablet 12/14/2024 12/24/2024 Active Start: 11-24-2024 End: 12-04-2024 take 1 tablet by mouth three times daily as needed for muscle spasms cyclobenzaprine (FLEXERIL) 10 MG tablet Indications: Post-op pain Take 1 (one) tablet (10 mg total) by mouth 3 (three) times a day as needed for muscle spasms . 30 tablet 11/24/2024 12/04/2024 Active Start: 11-10-2024 End: 11-20-2024 take 1 tablet by mouth three times daily as needed for muscle spasms cyclobenzaprine (FLEXERIL) 10 MG tablet Indications: Acute post-operative pain Take 1 (one) tablet (10 mg total) by mouth 3 (three) times a day as needed for muscle spasms Can cause drowsiness . 30 tablet 11/10/2024 3:15 PM EDT 11/10/2024 11/20/2024 Active Start: 11-09-2024 End: 11-10-2024 take 10 mg by mouth every eight hours 10 mg, Oral, Every 8 hours scheduled, First dose on Sat11/09/24 at 1930 Start: 06-01-2022 take 1 tablet by regina three times daily as needed for muscle spasms cyclobenzaprine (FLEXERIL) 10 MG tablet Indications: Closed fracture of multiple ribs of right side with routine healing, subsequent encounter Take 1 (one) tablet (10 mg total) by mouth 3 (three) times a day as needed for muscle spasms (medication can cause drowsiness) . 30 tablet 0 06/01/2022 Active Start: 05-15-2022 End: 06-14-2022 take 1 tablet by mouth three times daily as needed for muscle spasms cyclobenzaprine (FLEXERIL) 10 MG tablet Take 1 (one) tablet (10 mg total) by mouth 3 (three) times a day as needed for muscle spasms (medication can cause drowsiness) . 30 tablet 2 05/15/2022 06/01/2022 Discontinued (Reorder (Suppress CancelRx Message to Pharmacy)) Start: 02-20-2022 End: 03-02-2022 take 1 tablet by mouth three times daily as needed for muscle spasms cyclobenzaprine (FLEXERIL) 10 MG tablet Take 1 (one) tablet (10 mg total) by mouth 3 (three) times a day as needed for muscle spasms . 30 tablet 0 02/20/2022 03/02/2022 Active Start: 08-03-2021 End: 08-13-2021 take 1 tablet by mouth three times daily as needed for muscle spasms cyclobenzaprine (FLEXERIL) 10 MG tablet Take 1 (one) tablet (10 mg total) by mouth 3 (three) times a day as needed for muscle spasms . 30 tablet 0 08/03/2021 08/13/2021 Active Start: 05-03-2021 take 1 tablet by [facility] three times daily as needed for muscle spasms cyclobenzaprine (FLEXERIL) 10 MG tablet Indications: Injury of right shoulder, subsequent encounter , Acute pain of right shoulder Take 1 (one) tablet (10 mg total) by mouth 3 (three) times a day as needed for muscle spasms . 30 tablet 0 05/03/2021 Active Start: 04-17-2021 End: 04-27-2021 take 1 tablet by mouth three times daily as needed for muscle spasms cyclobenzaprine (FLEXERIL) 10 MG tablet Indications: Injury of right shoulder, initial encounter Take 1 (one) tablet (10 mg total) by mouth 3 (three) times a day as needed for muscle spasms . 30 tablet 0 04/17/2021 04/27/2021 Active Start: 12-02-2020 End: 12-12-2020 take 1 tablet by mouth three times daily as needed for muscle spasms cyclobenzaprine (FLEXERIL) 5 MG tablet Take 1 (one) tablet (5 mg total) by mouth 3 (three) times a day as needed for muscle spasms . 30 tablet 0 12/02/2020 12/12/2020 Active Start: 12-02-2020 End: 12-02-2020 cyclobenzaprine (FLEXERIL) t ablet 5 mg Start: 11-16-2020 End: 11-21-2020 take 1 tablet by mouth three times daily as needed for muscle spasms cyclobenzaprine (FLEXERIL) 10 MG tablet Take 1 (one) tablet (10 mg total) by mouth 3 (three) times a day as needed for muscle spasms . 15 tablet 0 11/16/2020 11/21/2020 Active diazePAM 2 mg oral tablet (18 sources) Benzodiazepine Start: 01-18-2020 End: 01-24-2020 take 1 tablet by mouth once daily, then take 3 tablets by mouth diazePAM (VALIUM) 2 MG tablet Indications: Alcohol withdrawal syndrome without complication (HCC) Take 1 (one) tablet (2 mg total) by mouth daily (Days supply per fill: 3) for 3 days Start: 01/21/20. 3 tablet 0 01/21/2020 Active Start: 01-16-2020 End: 01-18-2020 diazePAM (VALIUM) tablet 5 m g DULoxetine 30 mg delayed release oral capsule (18 sources) Serotonin and Norepinephrine Reuptake Inhibitor Start: 07-13-2024 End: 11-10-2024 take 1 capsule by mouth once daily DULoxetine (CYMBALTA) 30 MG capsule Indications: Anxiety and depression Take 1 (one) capsule (30 mg total) by mouth daily . 90 capsule 07/20/2024 Active FLUoxetine 20 mg oral capsule (20 sources) Serotonin Reuptake Inhibitor Start: 04-09-2022 take 1 capsule by mouth once daily FLUoxetine (PROZAC) 20 MG capsule Indications: Episode of recurrent major depressive disorder, unspecified depression episode severity (HCC) Take 1 (one) capsule (20 mg total) by mouth daily . 90 capsule 0 04/09/2022 Active Start: 09-04-2021 take 1 capsule by mo uth once daily FLUoxetine (PROZAC) 20 MG capsule Indications: Alcohol dependence, uncomplicated (HCC) , Generalized anxiety disorder Take 1 (one) capsule (20 mg total) by mouth daily . 30 capsule 0 09/04/2021 Active Start: 12-28-2019 take 1 capsule by mo uth once daily FLUoxetine (PROZAC) 20 MG capsule Indications: Generalized anxiety disorder Take 1 (one) capsule (20 mg total) by mouth daily . 30 capsule 0 12/28/2019 Active gabapentin 600 mg oral tablet (20 sources) Anti-epileptic Agent Start: 04-30-2020 End: 05-30-2020 gabapentin 600 MG tablet Indications: Complex regional pain syndrome type 1 of right lower extremity Take 1 tablet by mouth 3 times daily. 90 tablet 04/30/2020 Active Start: 03-30-2020 End: 07-01-2020 take 1 capsule by mouth three times daily gabapentin (NEURONTIN) 300 MG capsule Indications: Type I or II open fracture of right tibial plateau with routine healing, subsequent encounter Take 1 (one) capsule (300 mg total) by mouth 3 (three) times a day (Days supply per fill: 30 . 90 capsule 2 03/30/2020 07/01/2020 Discontinued (Patient's Request) Start: 02-24-2020 End: 03-29-2020 take 1 capsule by mouth three times daily gabapentin (Neurontin) 100 MG capsule Indications: Type I or II open fracture of right tibial plateau with routine healing, subsequent encounter Take 1 (one) capsule (100 mg total) by mouth 3 (three) times a day (Days supply per fill: 30 . 90 capsule 2 02/24/2020 03/29/2020 Discontinued Start: 01-17-2020 End: 01-18-2020 gabapentin (NEURONTIN) capsu le 100 mg hydrocortisone 10 mg/ml topical cream (7 sources) Corticosteroid Start: 04-17-2021 hydrocortisone 1 % cream Indications: Atopic dermatitis, unspecified type Apply topically 2 (two) times a day . 60 g 0 04/17/2021 Active loratadine 10 mg oral tablet (1 source) Start: 08-15-2021 take 1 tablet by mouth once daily loratadine (CLARITIN) 10 mg tablet Take 1 (one) tablet (10 mg total) by mouth daily . 30 tablet 0 08/15/2021 Active magnesium oxide 400 mg oral tablet (14 sources) Start: 02-17-2020 End: 03-18-2020 take 0.5 tablet by mouth twice daily magnesium oxide (MagOx) 400 mg (241.3 mg magnesium) tablet Take 0.5 (one-half) tablet (200 mg total) by mouth 2 (two) times a day . 30 tablet 0 02/17/2020 Active take 0.5 tablet by mouth twice d aily magnesium oxide 400 (241.3 Mg) MG tablet Take 0.5 tablets by mouth 2 times daily. Active take 1 tablet by mouth twice rajni ly magnesium oxide 400 (241.3 Mg) MG tablet Take 200 mg by mouth 2 times daily. 0 Active take 1 tablet by mouth twice rajni ly magnesium oxide 400 (241.3 Mg) MG tablet Take 200 mg by mouth 2 times daily. 0 Active meloxicam 15 mg oral tablet (12 sources) Nonsteroidal Anti-inflammatory Drug Start: 05-03-2021 take 1 tablet by mouth once daily meloxicam (MOBIC) 15 MG tablet Indications: Injury of right shoulder, subsequent encounter , Acute pain of right shoulder Take 1 (one) tablet (15 mg total) by mouth daily . 30 tablet 0 05/03/2021 Active Start: 02-16-2020 End: 02-15-2021 take 1 tablet by mouth once daily meloxicam (MOBIC) 15 MG tablet Take 1 (one) tablet (15 mg total) by mouth daily . 30 tablet 11 02/16/2020 02/15/2021 Active methylPREDNISolone (2 sources) Corticosteroid Start: 11-10-2024 End: 11-16-2024 methylPREDNISolone (MEDROL DOSEPACK) 4 mg tablet Follow package directions . 21 tablet 11/10/2024 3:15 PM EDT 11/10/2024 11/16/2024 Active Start: 11-10-2024 End: 11-16-2024 methylPREDNISolone (MEDROL D OSEPACK) 4 mg tablet Follow package directions . 21 tablet 11/10/2024 3:15 PM EDT 11/10/2024 11/16/2024 mirtazapine 15 mg oral tablet (2 sources) Start: 11-06-2018 End: 12-06-2018 take 1 tablet by mouth once daily mirtazapine (REMERON) 15 MG tablet Take 1 (one) tablet (15 mg total) by mouth nightly . 30 tablet 0 11/06/2018 Active multiple vitamin (MVI) 10 mL, folic acid 1 mg, thiamine (B-1) 100 mg, magnesium sulfate 2 g in sodium chloride 0.9%, with overfill 1,065.2 mL (total volume) infusion (1 source) Start: 07-22-2018 End: 07-23-2018 multiple vitamin (MVI) 10 mL, folic acid 1 mg, thiamine (B-1) 100 mg, magnesium sulfate 2 g in sodium chloride 0.9%, with overfill 1,065.2 mL (total volume) infusion multivitamin tablet (2 sources) take 1 tablet by mouth once daily multivitamin tablet Take 1 tablet by mouth daily. Active take 1 tablet by mouth once frannie y multivitamin tablet Take 1 tablet by mouth daily. 0 Active naltrexone hydrochloride 50 mg oral tablet (17 sources) Opioid Antagonist Start: 09-04-2021 take 1 tablet by mouth once daily naltrexone (DEPADE, REVIA) 50 mg tablet Indications: Alcohol dependence, uncomplicated (HCC) Take 1 (one) tablet (50 mg total) by mouth daily . 30 tablet 0 09/04/2021 Active Start: 05-22-2019 End: 11-18-2019 take 0.5 tablet by mouth once daily naltrexone (DEPADE, REVIA) 50 mg tablet Indications: Alcohol abuse Take 0.5 (one-half) tablet (25 mg total) by mouth daily . 45 tablet 1 05/22/2019 11/18/2019 Active Start: 11-10-2018 naltrexone eliana rospheres (VIVITROL) Inject 380 (three hundred eighty) mg into the shoulder, thigh, or buttocks every 28 days . 1 each 5 11/10/2018 Active Start: 11-10-2018 naltrexone eliana rospheres (VIVITROL) injection 380 mg Start: 01-09-2018 End: 07-22-2018 take 1 tablet by mouth once daily naltrexone 50 MG Tab Indications: Alcohol abuse Take 1 tablet by mouth daily. 30 tablet 11 01/09/2018 07/22/2018 Discontinued naproxen 500 mg oral tablet (5 sources) Nonsteroidal Anti-inflammatory Drug Start: 06-01-2022 take 1 tablet by mouth twice daily as needed naproxen (NAPROSYN) 500 MG tablet Indications: Closed fracture of multiple ribs of right side with routine healing, subsequent encounter Take 1 (one) tablet (500 mg total) by mouth 2 (two) times a day as needed . 60 tablet 0 06/01/2022 Active Start: 04-17-2021 take 1 tablet by regina twice daily as needed for pain naproxen (NAPROSYN) 500 MG tablet Indications: Injury of right shoulder, initial encounter Take 1 (one) tablet (500 mg total) by mouth 2 (two) times a day as needed (pain) . 30 tablet 0 04/17/2021 Active Start: 11-03-2019 End: 11-02-2020 take 1 tablet by mouth twice daily at mealtime naproxen (Naprosyn) 500 MG tablet Take 1 (one) tablet (500 mg total) by mouth 2 (two) times a day with meals . 60 tablet 2 11/03/2019 11/02/2020 Active nortriptyline 10 mg oral capsule (4 sources) Tricyclic Antidepressant Start: 06-02-2020 End: 07-02-2020 take 1 capsule by mouth at bedtime nortriptyline 10 MG capsule Take 1 capsule by mouth at bedtime. 30 capsule 1 06/02/2020 Active omeprazole 20 mg delayed release oral capsule (7 sources) Proton Pump Inhibitor Start: 07-22-2018 take 2 capsules by mouth once daily omeprazole [address] capsule Take 2 capsules by mouth daily. 60 capsule 0 07/22/2018 Active oxyCODONE hydrochloride 5 mg oral tablet (3 sources) Opioid Agonist Start: 01-16-2020 End: 01-23-2020 take 1 tablet by mouth every six hours as needed oxyCODONE (ROXICODONE) 5 MG immediate release tablet Indications: Type I or II open fracture of proximal end of left fibula, unspecified fracture morphology, initial encounter Take 1 (one) tablet (5 mg total) by mouth every 6 (six) hours as needed (Days supply per fill: 5) . 20 tablet 0 01/18/2020 01/23/2020 Active polyethylene glycol 3350 92045 mg powder for oral solution (1 source) Osmotic Laxative take 1 dose by mouth once daily Polyethylene glycol 17 g Pack packet Take 1 packet by mouth daily. Active predniSONE 10 mg oral tablet (4 sources) Start: 03-14-2022 End: 04-09-2022 take 3 tablets by mouth twice daily, then take 2 tablets by mouth twice daily, then take 2 tablets by mouth once daily predniSONE (DELTASONE) 10 MG tablet Indications: Rash in adult Take 3 tablets (30mg) PO BID x 3 days, 2 tablets (20mg) PO BID x 3 days then 2 tablets (20) mg PO QD x 5 days . 40 tablet 0 03/14/2022 04/09/2022 Discontinued Start: 08-15-2021 take 2 tablets by mo [facility] twice daily, then take 1 tablet by mouth twice daily, then take 1 tablet by mouth once daily predniSONE (DELTASONE) 10 MG tablet 2 tabs orally Bid x 3 days then 1 tab orally bid x 3 days then 1 tab orally daily x 2 days. . 20 tablet 0 08/15/2021 Active take 4 tablets by mo ut once daily predniSONE 20 MG tablet Take 4 tablets by mouth daily. Active [id number] 29-1-400 mg CPKD (13 sources) Start: 11-24-2019 End: 11-23-2020 take 1 tablet by mouth once daily -[id number]- 29-1-400 mg CPKD Indications: Alcohol dependence with withdrawal, uncomplicated (HCC) Take 1 tablet by mouth daily MAY SUB SIMILAR FOLIC . 30 each 0 11/24/2019 11/23/2020 Active Start: 05-06-2019 End: 05-05-2020 take 1 tablet by mouth once daily [id number] 29-1-400 mg CPKD Take 1 tablet by mouth daily MAY SUB SIMILAR FOLIC . 30 each 11 05/06/2019 05/05/2020 Active QUEtiapine 100 mg oral tablet (2 sources) Atypical Antipsychotic take 1 tablet by mouth once daily at bedtime QUEtiapine 100 MG tablet Take 1 tablet by mouth daily. At bedtime Active sucralfate 1000 mg oral tablet (8 sources) Aluminum Complex Start: 07-23-19 End: 07-30-19 19 take 1 tablet by mouth four times daily sucralfate 1 g Tab Take 1 tablet by mouth 4 times daily for 7 days. 28 tablet 07/22/2018 Active therapeutic multivitamin (THERAGRAN) tablet (8 sources) Start: 02-17-20 End: 02-17-20 21 take 1 tablet by mouth once daily therapeutic multivitamin (THERAGRAN) tablet Take 1 (one) tablet by mouth daily . 30 tablet 11 02/17/2020 02/16/2021 Active triamcinolone acetonide 1 mg/ml topical cream (11 sources) Corticosteroid Start: 03-23-19 23 End: 03-23-19 24 triamcinolone (KENALOG) 0.1 % cream Indications: Rash in adult Apply topically 2 (two) times a day . 30 g 0 03/23/2022 06/01/2022 Discontinued Start: 11-03-2019 End: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 source) Nonsteroidal Anti-inflammatory Drug, Cyclooxygenase Inhibitor Start: 10-26-2019 End: 10-26-2019 ketorolac (TORADOL) injection 30 mg 4 ml labetalol hydrochloride 5 mg/ml cartridge (1 source) beta-Adrenergic Donovan Start: 02-20-2022 End: 02-20-2022 5 mg, Intravenous, Every 5 min PRN, SBP greater than 160 or DBP greater than 90, Starting on Sat02/20/22 at 1137, PACU (only) Do not give more than 20 mg total. Hold for HR less than 50. Lidocaine (3 sources) Antiarrhythmic, Amide Local Anesthetic Start: 11-09-2024 End: 11-09-2024 Intravenous, As needed, Starting on Sat11/09/24 at 1411, Anesthesia Intra-op Start: 10-02-2022 End: 10-03-2022 lidocaine patch 1 patch Start: 11-15-2020 End: 11-15-2020 lidocaine 20 mg/mL (2 %) inj ection lidocaine 1% (PF) (XYLOCAINE MPF) 10 mL syringe (2 sources) Start: 05-20-2020 End: 05-27-2020 lidocaine 1% (PF) (XYLOCAINE MPF) 10 mL syringe LORazepam (17 sources) Benzodiazepine Start: 03-04-2023 End: 03-05-2023 take 1-4 mg by mouth every hour as needed LORazepam (ATIVAN) tablet 1-4 mg Start: 10-02-2022 End: 10-03-2022 take 1-4 mg by mouth every hour as needed LORazepam (ATIVAN) tablet 1-4 mg Start: 10-11-2018 End: 10-22-2018 take 1 tablet by mouth every six hours as needed for anxiety LORazepam (ATIVAN) 1 MG tablet Indications: Alcoholism /alcohol abuse (HCC) Take 1 (one) tablet (1 mg total) by mouth every 6 (six) hours as needed for anxiety . 9 tablet 0 10/12/2018 10/22/2018 Active Start: 08-08-2018 End: 08-09-2018 take 1-4 mg by mouth every hour as needed LORazepam (ATIVAN) tablet 1-4 mg Start: 08-08-2018 End: 08-08-2018 LORazepam (ATIVAN) injection 2 mg Start: 08-08-2018 End: 08-08-2018 LORazepam (ATIVAN) injection 1 mg Start: 01-02-2018 take 1 tablet by regina th every eight hours as needed LORazepam 1 MG Tab tablet Indications: Alcohol abuse Take 1 tablet by mouth every 8 hours as needed for agitation, Seizures or Insomnia for up to 14 days. 21 tablet 0 01/02/2018 Active magnesium hydroxide 80 mg/ml oral suspension (3 sources) Start: 11-09-2024 End: 11-10-2024 Start: 09-26-2022 End: 09-28-2022 take 2400 mg by mouth once daily as needed for constipation 2,400 mg (30 mL), Oral, Daily PRN, constipation, Starting on Sat09/26/22 at 2144 If no bowel movement in 24 hours after Sennosides (SENNA) administration. Start: 08-08-2018 End: 08-09-2018 take 2400 mg by mouth once daily as needed for constipation 2,400 mg (30 mL), Oral, Daily PRN, constipation, For constipation., Starting Sat08/08/18 at 1859 melatonin 5 mg oral tablet (7 sources) Start: 10-02-2022 End: 10-03-2022 take 5 mg by mouth once daily as needed for sleep 5 mg, Oral, Nightly PRN, Sleep, Starting on Sat10/02/22 at 0249 Start: 09-26-2022 End: 10-24-2022 take 5 mg by mouth once daily as needed for sleep 5 mg, Oral, Nightly PRN, Sleep, Starting on Sat09/26/22 at 2144 If still awake in 1 hour proceed to trazodone (Desyrel) methocarbamol 500 mg oral tablet (1 source) Muscle Relaxant Start: 01-17-2020 End: 01-18-2020 methocarbamoL (ROBAXIN) tablet 500 mg 5 ml midazolam 1 mg/ml injection (2 sources) Benzodiazepine Start: 11-09-2024 End: 11-09-2024 Intravenous, As needed, Starting on Sat11/09/24 at 1407, Anesthesia Intra-op Start: 11-15-2020 End: 11-15-2020 midazolam (VERSED) injection 1 ml morphine sulfate 4 mg/ml cartridge (1 source) Opioid Agonist Start: 04-25-2020 End: 04-25-2020 morphine syringe 4 mg multivitamin (THERAGRAN) per tablet 1 tablet (5 sources) Start: 03-04-2023 End: 03-05-2023 multivitamin (THERAGRAN) per tablet 1 tablet Start: 09-27-2022 End: 09-28-2022 multivitamin (THERAGRAN) per tablet 1 tablet Start: 09-26-2022 End: 09-26-2022 multivitamin (THERAGRAN) per tablet 1 tablet Start: 01-16-2020 End: 01-18-2020 multivitamin (THERAGRAN) per tablet 1 tablet Start: 08-08-2018 End: 08-09-2018 take 1 tablet by mouth once daily 1 tablet, Oral, Daily, First dose on Sat08/08/18 at 2100 multivitamin,therapeutic (THERA-TABS ORAL) (19 sources) End: 07-20-2024 take 1 tablet by mouth once daily multivitamin,therapeutic (THERA-TABS ORAL) Take 1 tablet by mouth daily . 07/20/2024 Discontinued take 1 tablet by mouth once frannie y multivitamin,therapeutic (THERA-TABS ORAL) Take 1 tablet by mouth daily . Active take 1 tablet by mouth once frannie y multivitamin,therapeutic (THERA-TABS ORAL) Take 1 tablet by mouth daily . 0 Active take 1 tablet by mouth once frannie y multivitamin,therapeutic (THERA-TABS ORAL) Take 1 tablet by mouth daily . 0 naloxone (NARCAN) injection 0.1 mg (3 sources) Start: 11-09-2024 End: 11-10-2024 naloxone (NARCAN) injection 0.1 mg Start: 02-20-2022 End: 02-20-2022 naloxone (NARCAN) injection 0.1 mg Start: 01-15-2020 End: 01-18-2020 naloxone (NARCAN) injection 0.1 mg 24 hr nicotine 0.875 mg/hr transdermal system (4 sources) Cholinergic Nicotinic Agonist Start: 11-09-2024 End: 11-10-2024 apply 1 dose transdermal route once daily 1 patch, Transdermal, Administer over 24 Hours, Daily, First dose on Sat11/09/24 at 2045, U/P Listed Hazardous Drug. Waste Must Be Disposed in [employer] Start: 10-02-2022 End: 10-03-2022 nicotine (NICODERM CQ) 21 mg /24 hr 1 patch Start: 08-08-2018 End: 08-09-2018 nicotine (NICODERM CQ) 21 mg /24 hr 1 patch Start: 08-08-2018 End: 08-09-2018 nicotine (NICODERM CQ) 14 mg /24 hr 1 patch nitroglycerin 0.4 mg sublingual tablet (2 sources) Nitrate Vasodilator Start: 10-02-2022 End: 10-03-2022 0.4 mg, Sublingual, Every 5 min PRN, chest pain, Starting on Sat10/02/22 at 0249 For chest pain. May give up to 3 doses. Call physician for chest pain unrelieved by Nitroglycerin, or recurrent chest pain. DO NOT CRUSH OR CHEW. Start: 09-26-2022 End: 09-28-2022 0.4 mg, Sublingual, Every 5 min PRN, chest pain, Starting on Sat09/26/22 at 2144 For chest pain. May give up to 3 doses. Call physician for chest pain unrelieved by Nitroglycerin, or recurrent chest pain. DO NOT CRUSH OR CHEW. 2 ml ondansetron 2 mg/ml injection (15 sources) Serotonin-3 Receptor Antagonist Start: 11-09-2024 End: 11-10-2024 take 4 mg intravenously every six hours as needed for nausea and vomiting Start: 11-09-2024 End: 11-09-2024 Intravenous, As needed, Star ting on 11/09/24 at 1628, Anesthesia Intra-op Start: 03-04-2023 End: 03-04-2023 ondansetron (ZOFRAN) injecti on 4 mg Start: 10-02-2022 End: 10-03-2022 take 1 tablet by mouth every six hours as needed for nausea and vomiting 4 mg, Oral, Every 6 hours PRN, nausea, vomiting, Starting on Sat10/02/22 at 0249 Orally disintegrating tablet: Open blister pack and place tablet on the tongue; tablet is formulated to dissolve on the tongue without water; do not split tablet. Formulation requires tablet remain in sealed package until immediately prior to dose being administered. Start: 09-26-2022 End: 03-05-2023 take 1 tablet by mouth every four hours as needed for nausea ondansetron (ZOFRAN) 4 MG tablet Take 1 (one) tablet (4 mg total) by mouth every 4 (four) hours as needed for nausea . 0 09/26/2022 03/05/2023 Discontinued Start: 05-22-2022 End: 05-22-2022 Ondansetron (ZOFRAN) tablet 4 mg Start: 02-20-2022 End: 02-20-2022 take 4 mg intravenously every twenty-four hours as needed for nausea and vomiting 4 mg, Intravenous, Once as needed, nausea, vomiting, Starting on Sat02/20/22 at 1137, For 1 dose, PACU (only) Administer first as needed for nausea/vomiting, or as directed by anesthesia Start: 11-15-2020 End: 11-15-2020 ondansetron (ZOFRAN) injecti on take 5 mL by mouth once ondanset charley 4 MG/5ML solution Take 5 mL by mouth once. Active ondansetron (ZOFRAN-ODT) disintegrating tablet 4 mg (3 sources) Start: 03-04-2023 End: 03-05-2023 take 1 tablet by mouth every six hours as needed for nausea and vomiting ondansetron (ZOFRAN-ODT) disintegrating tablet 4 mg Start: 09-26-2022 End: 09-28-2022 take 1 tablet by mouth every six hours as needed for nausea and vomiting ondansetron (ZOFRAN-ODT) disintegrating tablet 4 mg Start: 01-15-2020 End: 01-18-2020 take 1 tablet by mouth every six hours as needed ondansetron (ZOFRAN-ODT) disintegrating tablet 4 mg pantoprazole 40 mg injection (20 sources) Proton Pump Inhibitor Start: 03-04-2023 End: 03-04-2023 pantoprazole (PROTONIX) injection 40 mg Start: 09-26-2022 End: 10-24-2022 take 1 tablet by mouth once daily pantoprazole (PROTONIX) 40 MG tablet Take 1 (one) tablet (40 mg total) by mouth daily . 0 09/26/2022 10/24/2022 Discontinued Start: 11-10-2018 End: 03-03-2020 take 1 tablet by mouth once daily pantoprazole (PROTONIX) 40 MG tablet Take 1 (one) tablet (40 mg total) by mouth daily for 15 days . 15 tablet 0 02/17/2020 Active Start: 07-22-2018 End: 07-22-2018 pantoprazole (PROTONIX) inje ction 40 mg pantoprazole (PROTONIX) 80 mg in sodium chloride 0.9 % (NS) 100 mL infusion (1 source) Start: 11-07-2018 End: 11-08-2018 pantoprazole (PROTONIX) 80 mg in sodium chloride 0.9 % (NS) 100 mL infusion PHENobarbital 65 mg/ml injectable solution (14 sources) Start: 03-04-2023 End: 03-05-2023 inject 65 mg by intramuscular injection every six hours as needed PHENobarbital injection 65 mg Start: 09-28-2022 End: 09-28-2022 take 1 tablet by mouth every twelve hours PHENobarbitaL (LUMINAL) tablet 32.4 mg Start: 09-26-2022 End: 09-28-2022 inject 65 mg by intramuscular injection every six hours as needed 65 mg, Intramuscular, Every 6 hours PRN, Two of the following: SBP greater than 160 or DBP greater than 100, Significant agitation (RASS greater than +2), HR greater than 110, Diaphoresis, tremors, Hallucinations, Starting on Sat09/26/22 at 2144, For 102 hours VESICANT Start: 09-26-2022 End: 10-03-2022 PHENobarbitaL (LUMINAL) 30 M G tablet Take by mouth See Admin Instructions Take 60 mg q6H for 4 doses, then Take 60 mg q8H for 3 doses, then Take 60 mg q12H for 2 doses, then Tahe 30 mg q12H for 2 doses . 0 09/26/2022 10/03/2022 Discontinued (Stop Taking at Discharge) Start: 02-17-2020 PHENobarbitaL (LUMINAL) 30 MG tablet Indications: Alcohol dependence with withdrawal, uncomplicated (HCC) 4 day supply [facility] TAPER start when CIWA 8 or higher . 20 tablet 0 02/17/2020 Active phenylephrine HCl in 0.9% Na Cl 1 mg/10 mL (100 mcg/mL) syringe Syrg (1 source) Start: 11-09-2024 End: 11-09-2024 Intravenous, As needed, Starting on 11/09/24 at 1436, Anesthesia Intra-op microencapsulated potassium chloride 20 meq extended release oral tablet (1 source) Start: 10-03-2022 End: 10-03-2022 potassium chloride SA (K-DUR,KLOR-CON) CR tablet 40 mEq Start: 10-03-2022 End: 10-03-2022 potassium chloride SA (K-DUR ,KLOR-CON) CR tablet 40 mEq pregabalin 75 mg oral capsule (3 sources) End: 07-20-2024 take 2 capsules by mouth three times daily pregabalin (LYRICA) 75 MG capsule Take 2 (two) capsules (150 mg total) by mouth 3 (three) times a day . 07/20/2024 Discontinued prochlorperazine 5 mg/ml injectable solution (1 source) Phenothiazine Start: 02-20-2022 End: 02-20-2022 take 5 mg intravenously every twenty-four hours as needed for nausea 5 mg, Intravenous, Once as needed, nausea, Starting on Sat02/20/22 at 1137, For 1 dose, PACU (only) Admin ister if ondansetron (Zofran), promethazine (Phenergan), and Metocolopramide (Reglan) ineffective or not ordered, or as directed by anesthesia, as needed for nausea/vomiting 10 ml propofol 10 mg/ml injection (2 sources) General Anesthetic Start: 11-09-2024 End: 11-09-2024 Intravenous, As needed, Starting on Sat11/09/24 at 1411, Anesthesia Intra-op Start: 11-15-2020 End: 11-15-2020 propofoL (DIPRIVAN) injectio n rocuronium bromide 10 mg/ml injectable solution (2 sources) Nondepolarizing Neuromuscular Donovan Start: 11-09-2024 End: 11-09-2024 Intravenous, As needed, Starting on Sat11/09/24 at 1411, Anesthesia Intra-op Start: 11-15-2020 End: 11-15-2020 rocuronium (ZEMURON) injecti on sennosides, detention 8.6 mg oral tablet (1 source) Start: 10-02-2022 End: 10-03-2022 take 1 tablet by mouth twice daily as needed for constipation 8.6 mg (1 tablet), Oral, 2 times daily PRN, constipation, Starting on Sat10/02/22 at 0249 sertraline 50 mg oral tablet (2 sources) Serotonin Reuptake Inhibitor Start: 12-17-2023 End: 07-20-2024 sertraline (ZOLOFT) 50 MG tablet 12/17/2023 07/20/2024 Discontinued 1000 ml sodium chloride 9 mg/ml injection (18 sources) Start: 11-09-2024 End: 11-10-2024 take 75 mL intravenously every hour 75 mL/hr, Intravenous, Continuous, Starting on Sat11/09/24 at 1900 Start: 05-01-2023 End: 05-02-2023 Intravenous, at 100 mL/hr, CONTINUOUS, Starting on Sat05/01/23 at 0845, Until Sat05/02/23 at 0242, Pre-op/Pre-Proc Start: 03-04-2023 End: 03-05-2023 sodium chloride (PF) (NS) fl ush 5 mL Start: 03-04-2023 End: 03-04-2023 sodium chloride 0.9% (NS) lorena jessie 1,000 mL Start: 03-04-2023 End: 03-05-2023 sodium chloride (PF) (NS) fl ush 5 mL Start: 10-02-2022 End: 10-03-2022 sodium chloride (PF) (NS) fl ush 5 mL Start: 09-26-2022 End: 09-28-2022 sodium chloride (PF) (NS) fl ush 5 mL Start: 09-26-2022 End: 09-26-2022 sodium chloride 0.9% (NS) lorena jessie 2,000 mL Start: 02-20-2022 End: 02-20-2022 sodium chloride 0.9% (NS) Start: 12-02-2020 End: 12-02-2020 sodium chloride 0.9% (NS) Start: 11-15-2020 End: 11-15-2020 sodium chloride 0.9% (NS) Start: 01-15-2020 End: 01-16-2020 sodium chloride 0.9% (NS) Start: 11-07-2018 End: 11-08-2018 sodium chloride (PF) (NS) fl ush 5 mL Start: 08-08-2018 End: 08-09-2018 take 100 mL intravenous route every hour 100 mL/hr, Intravenous, Continuous, Starting Sat08/08/18 at 1945 Start: 08-08-2018 End: 08-09-2018 sodium chloride (PF) (NS) fl ush 5 mL Start: 07-22-2018 End: 07-22-2018 sodium chloride 0.9% IV solu tion 1,000 mL sodium chloride (PF) 0.9% injection 5.5 mL (2 sources) Start: 05-20-2020 End: 05-27-2020 sodium chloride (PF) 0.9% injection 5.5 mL sodium chloride 0.9 % 1,000 mL with mvi, adult no.4 with vit K 10 mL, thiamine 100 mg, folic acid 1 mg infusion (3 sources) Start: 03-04-2023 End: 03-05-2023 sodium chloride 0.9 % 1,000 mL with mvi, adult no.4 with vit K 10 mL, thiamine 100 mg, folic acid 1 mg infusion Start: 10-02-2022 End: 10-02-2022 sodium chloride 0.9 % 1,000 mL with mvi, adult no.4 with vit K 10 mL, thiamine 100 mg, folic acid 1 mg infusion Start: 09-26-2022 End: 09-26-2022 250 mL/hr, Intravenous, Once , On Sat09/26/22 at 2300, For 1 dose 5 ml sugammadex 100 mg/ml injection (2 sources) Start: 11-09-2024 End: 11-09-2024 Intravenous, As needed, Star ting on 11/09/24 at 1638, Anesthesia Intra-op Start: 11-15-2020 End: 11-15-2020 sugammadex (BRIDION) injecti on thiamine 100 mg oral tablet (7 sources) Start: 03-04-2023 End: 03-05-2023 thiamine tablet 200 mg Start: 09-26-2022 End: 09-28-2022 thiamine tablet 200 mg Start: 01-16-2020 End: 01-18-2020 thiamine tablet 200 mg Start: 12-26-2017 End: 07-22-2018 take 1 tablet by mouth once daily thiamine 100 MG Tab tablet Take 1 tablet by mouth daily. 30 tablet 5 12/26/2017 07/22/2018 Discontinued thiamine (B-1) 200 mg in sodium chloride 0.9 % (NS) 250 mL IVPB (1 source) Start: 08-08-2018 End: 08-09-2018 200 mg, Intravenous, at 500 mL/hr, Daily, First dose on Sat08/08/18 at 2100, For 3 doses topiramate 50 mg oral tablet (20 sources) Start: 10-02-2022 End: 10-03-2022 take 50 mg by mouth once daily 50 mg, Oral, Daily, First dose on Sat10/02/22 at 0900 CATEGORY D HAZARDOUS DRUG use safe handling precautions. Use reference link to view PPE guidelines. Minimize crushing/splitting only to situations where clinically necessary. Do Not Crush or Chew if administering orally due to bitter taste. Start: 09-27-2022 End: 09-28-2022 topiramate (TOPAMAX) tablet 25 mg Start: 09-26-2022 End: 10-24-2022 take 1 tablet by mouth twice daily topiramate (TOPAMAX) 50 MG tablet Take 1 (one) tablet (50 mg total) by mouth 2 (two) times a day . 60 tablet 1 10/03/2022 10/24/2022 Discontinued Start: 09-16-2020 End: 11-01-2020 topiramate (TOPAMAX) 25 MG t ablet Start: 05-22-2019 End: 08-15-2020 take 1 tablet by mouth twice daily topiramate (TOPAMAX) 25 MG tablet Take 1 (one) tablet (25 mg total) by mouth 2 (two) times a day . 60 tablet 5 02/17/2020 08/15/2020 Active traZODone hydrochloride 50 m g oral tablet (20 sources) Serotonin Reuptake Inhibitor Start: 11-09-2024 End: 11-10-2024 Start: 03-04-2023 End: 03-05-2023 take 50 mg by mouth once daily as needed for sleep 50 mg, Oral, Nightly PRN, sleep, Starting on Sat03/04/23 at 1337 May repeat times 1 in 30 minutes if still awake. Start: 09-26-2022 End: 10-24-2022 take 50 mg by mouth once daily as needed for sleep 50 mg, Oral, Nightly PRN, sleep, Starting on Sat10/02/22 at 0249 Start: 09-16-2020 End: 11-01-2020 traZODone (DESYREL) 50 MG ta blet Start: 02-17-2020 End: 07-20-2024 take 1 tablet by mouth once daily as needed for sleep traZODone (DESYREL) 50 MG tablet Indications: Sleep disturbance , Alcohol dependence, uncomplicated (HCC) Take 1 (one) tablet (50 mg total) by mouth nightly as needed for sleep . 30 tablet 2 05/11/2020 07/01/2020 Discontinued (Patient's Request) Problems Active Problems Problem Classification Problem Date Documented Da te Episodic/Chronic Alcohol-related disorders (20 sources) Alcohol dependence with withdrawal, uncomplicated; Translations: [Alcoholic gastritis] Onset: 8 Resolved: 5 12-26-2017 Chronic Anxiety disorders (20 sources) Anxiety disorder; Translations: [Generalized anxiety disorder] Onset: 8 01-03-2018 Chronic Coagulation and hemorrhagic disorders (3 sources) Thrombocytopenic disorder; Translations: [Thrombocytopenia, unspecified] Onset: 5 07-11-2024 Chronic Diseases of white blood cells (3 sources) Leukopenia; Translations: [Decreased white blood cell count, unspecified] Onset: 5 07-11-2024 Chronic E Codes: Fall (2 sources) Fall (on) (from) other stairs and steps, initial encounter; Translations: [Accidental fall on or from other stairs or steps] Episodic Fracture of lower limb (11 sources) Open fracture of tibial plateau; Translations: [Open fracture of upper end of tibia] Episodic Gastrointestinal hemorrhage (8 sources) Gastrointestinal hemorrhage; Translations: [Gastrointestinal hemorrhage, unspecified] Onset: 4 04-21-2023 Episodic Mood disorders (20 sources) Recurrent major depressive episodes; Translations: [Severe recurrent major depression without psychotic features] Onset: 8 12-26-2017 Chronic Mood disorders (20 sources) Mood disorders; Translations: [Depression, unspecified] Onset: 4 Resolved: 4 12-23-2023 Other aftercare (1 source) Follow-up status; Translations: [Encounter for follow-up examination after completed treatment for conditions other than malignant neoplasm] Episodic Other bone disease and musculoskeletal deformities (1 source) Chondromalacia of left knee; Translations: [Chondromalacia of knee, left] Other connective tissue disease (3 sources) Pain in right lower limb; Translations: [Pain in right leg] 01-26-2025 Episodic Other connective tissue disease (2 sources) Pain in bilateral legs; Translations: [Pain in right leg] Episodic Other connective tissue disease (3 sources) Weakness of right leg; Translations: [Other symptoms and signs involving the musculoskeletal system] Episodic Other connective tissue disease (1 source) Recurrent falls ; Translations: [Repeated falls] 03-04-2023 Episodic Other connective tissue disease (2 sources) Pain in right leg; Translations: [Pain in right leg] Onset: 5 Episodic Other connective tissue disease (1 source) Pain in bilateral legs; Translations: [Leg pain, bilateral] Other ear and sense organ disorders (8 sources) Bilateral hearing loss; Translations: [Unspecified hearing loss, bilateral] Chronic Other ear and sense organ disorders (3 sources) Sensorineural hearing loss; Translations: [Sensorineural hearing loss, unilateral, right ear, with restricted hearing on the contralateral side] Chronic Other ear and sense organ disorders (1 source) Bilateral sensory hearing loss; Translations: [Sensorineural hearing loss, bilateral] Chronic Other ear and sense organ disorders (5 sources) Sensorineural hearing loss, bilateral; Translations: [Sensorineural hearing loss, bilateral] Chronic Other ear and sense organ disorders (2 sources) Bilateral tinnitus; Translations: [Tinnitus, bilateral] Episodic Other ear and sense organ disorders (2 sources) Bilateral subjective tinnitus of ears; Translations: [Tinnitus, bilateral] Episodic Other ear and sense organ disorders (2 sources) Excessive cerumen in ear canal ; Translations: [Impacted cerumen, bilateral] Episodic Other fractures (2 sources) Closed fracture of multiple ribs; Translations: [Multiple fractures of ribs, unspecified side, initial encounter for closed fracture] Episodic Other fractures (2 sources) Multiple fractures of ribs, unspecified side, initial encounter for closed fracture; Translations: [Multiple fractures of ribs, unspecified side, initial encounter for closed fracture] Onset: 3 Episodic Other hereditary and degenerative nervous system conditions (20 sources) Idiopathic peripheral autonomic neuropathy; Translations: [Other idiopathic peripheral autonomic neuropathy] Onset: 3 08-27-2022 Chronic Other injuries and conditions due to external causes (4 sources) History of falling; Translations: [History of falling] Onset: 4 Episodic Other liver diseases (1 source) Lesion of liver; Translations: [Liver disease, unspecified] 04-21-2023 Chronic Other liver diseases (2 sources) Liver disease, unspecified; Translations: [Liver disease, unspecified] Onset: 4 Chronic Other liver diseases (2 sources) Enzyme level - finding; Translations: [Transaminitis] Episodic Other lower respiratory disease (1 source) Hypoxia; Translations: [Hypoxemia] 03-04-2023 Episodic Other nervous system disorders (1 source) Neuropathy; Translations: [Neuropathy] Chronic Other nervous system disorders (20 sources) Complex regional pain syndrome type I of right lower limb; Translations: [Complex regional pain syndrome I of right lower limb] Onset: 1 Chronic Other nervous system disorders (1 source) Chronic pain syndrome; Translations: [Chronic pain syndrome] Chronic Other nervous system disorders (2 sources) Complex regional pain syndrome type I; Translations: [Complex regional pain syndrome I, unspecified] Chronic Other nervous system disorders (20 sources) Complex regional pain syndrome type I of bilateral lower limbs; Translations: [Complex regional pain syndrome I of lower limb, bilateral] Onset: 3 09-05-2022 Chronic Other nervous system disorders (4 sources) Complex regional pain syndrome I of right lower limb; Translations: [Complex regional pain syndrome i of right lower limb] Onset: 5 Chronic Other nervous system disorders (2 sources) Other chronic pain; Translations: [Other chronic pain] Onset: 1 Chronic Other nervous system disorders (1 source) Chronic pain syndrome; Translations: [Chronic pain syndrome] Episodic Other nervous system disorders (4 sources) Acute postoperative pain; Translations: [Other acute postprocedural pain] Episodic Other nervous system disorders (19 sources) Postoperative pain ; Translations: [Other acute postprocedural pain] Onset: 5 11-24-2024 Episodic Other nervous system disorders (4 sources) Other acute postprocedural pain; Translations: [Other acute postprocedural pain] Onset: 5 Episodic Other nervous system disorders (4 sources) Unsteadiness on feet; Translations: [Unsteadiness on feet] Onset: 5 Episodic Other nervous system disorders (4 sources) Complex regional pain syndrome type I of right lower limb; Translations: [Complex regional pain syndrome type 1 of right lower extremity] Other non-traumatic joint disorders (2 sources) Knee pain; Translations: [Acute pain of left knee] Episodic Otitis media and related conditions (3 sources) Acute suppurative otitis media without spontaneous rupture of ear drum; Translations: [Acute suppurative otitis media without spontaneous rupture of ear drum, left ear] Onset: 5 03-19-2024 Episodic Residual codes; unclassified (20 sources) Tobacco user; Translations: [Tobacco user] Onset: 9 08-08-2018 Chronic Residual codes; unclassified (9 sources) H/O Spinal surgery; Translations: [Presence of other specified functional implants] Chronic Residual codes; unclassified (2 sources) Presence of other specified functional implants; Translations: [Presence of other specified functional implants] Onset: 2 Chronic Residual codes; unclassified (20 sources) Pain; Translations: [Pain due to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 are:Most clinical situations: INR 2.0-3.0Mechanical Prosthetic Valve: INR 2.5-3.5Critical: INR >5.0 Performed By: #### 4 6391 #### LAB [address] [place], [place] [address] Jesus Najera M.D. [id number] TISSUE EXAMon 11-09-2024 TISSUE EXAM Surgical Pathology R eport Case: [id number] Authorizing Provider: Ricky Martell, Collected: 11/09/2024 04:02 PM Ordering Location: [facility] Periop Received: 11/10/2024 09:18 AM Pathologist: Jelani Alexander DO Specimen: Intervertebral Disc, Please Specify, Right L4-5, Right L5-S1 Discs for Permanent A. Disc, Right L4-5 & L5-S1, discectomy: Fibrocartilaginous tissue, consistent with disc material. at 0923 EDT Complex regional pain syndrome i of right lower limb [G90.521] A. Received in formalin, designated " intervertebral disc-right L4-5, right L5-S1", are multiple fragment(s) of arreola-dickerson tissue measuring 1 x 0.8 x 0.4 cm in aggregate. Totally submitted in 1 cassette(s). JK Gross examination performed at: [facility] - [address] [place] [address] Microscopic examination is performed. Normal [facility] Comment on above: Performed By: #### 4 7015 #### [place] [address] Jesus Najera M.D. [id number] TYPE AND SCREENon 11-09-2024 TYPE AND SCREEN ABORH: A Positive AB SCREEN: Negative EXPIRATION DATE: 11/12/2024 23:59 EST Normal [facility] XR Lumbar spine 2 or 3 Views on 11-09-2024 Radiology Study observation (narrative) [facility] XR OR FLUOROSCOPY TIMEon XR OR FLUOROSCOPY TIME This is an auto finalized result. Please refer to patient chart for further information. further information. further information. [facility] Comment on above: Order Comment: Injur y/Trauma or Illness?:Illness/Other How long have you had these symptoms (acute/chronic)?:Chronic Reason for exam?:L3-4, L5-S1 Mahogany-Laminectomy Type of Exam?:Initial Additional signs and symptoms?:. Fluoro time in minutes:0 Fluoro dose in mGy?:0 XR OR L-SPINE 2-3 VIEWSon XR OR L-SPINE 2-3 VIEWS EXAMINATION: XR OR L-SPINE 2-3 VIEWS HISTORY: ORDERING SYSTEM PROVIDED HISTORY: L3-L4, L5-S1 Rt. Mahogany-Laminectomy, TECHNOLOGIST PROVIDED HISTORY: Illness/Other Reason for exam: L3-L4, L5-S1, Mahogany-Laminectomy Encounter Type: Initial Additional signs and symptoms: . Fluoro dose in mGy: 0.5 ORDERING SYSTEM PROVIDED DIAGNOSIS CODES: COMPARISON: CT lumbar spine 03/04/2023. TECHNIQUE: Fluoro Dose Ka,r mGy: Fluoro dose in Ka,r mGy: 0.5 FINDINGS: Four fluoroscopic images were submitted. Images demonstrate instrumentation of the lumbar spine. IMPRESSION: Fluoroscopic imaging of the lumbar spine. Refer to procedure note for details. [employer] Workstation ID: [id number] Dictated by: DAYLIN FRIAS on SatNov 10, 2024 11:55:28 AM EDT Transcribed by: MERLYN BUCKNER on SatNov 10, 2024 12:41:39 PM EDT Finalized by: DAYLIN FRIAS on SatNov 10, 2024 2:29:38 PM EDT [facility] Comment on above: Order Comment: Injur y/Trauma or Illness?:Illness/Other How long have you had these symptoms (acute/chronic)?:Chronic Reason for exam?:L3-L4, L5-S1, Mahogany-Laminectomy Type of Exam?:Initial Additional signs and symptoms?:. Fluoro time in minutes:0.09 5.4 seconds Fluoro dose in mGy?:0.5 XR and RF Chest PA and Later al and Viewson 11-09-2024 This is an auto paulie lized result. Please refer to patient chart for further information. GE RIS BASIC METABOLIC PANELon 10-16 Anion gap [Moles/Vol] 16 mmol/L Normal 10-20 [facility] Comment on above: Order Comment: [facility] has implemented the eGFR calculation approach that does not have a coefficient for race that conforms to the NKF-ASN Task Force Recommendations. Performed By: #### 4 6124 ####[facility] [address] [place], [place] [address] Jesus Najera M.D. [id number] Calcium [Mass/Vol] 9.5 mg/dL Normal 8.4-10.2 [facility] Comment on above: Order Comment: [facility] has implemented the eGFR calculation approach that does not have a coefficient for race that conforms to the NKF-ASN Task Force Recommendations. Performed By: #### 4 6124 #### LAB [address] [place], [place] [address] Jesus Najera M.D. [id number] Chloride [Moles/Vol] 104 mmol/L Normal 98-108 [facility] Comment on above: Order Comment: [facility] has implemented the eGFR calculation approach that does not have a coefficient for race that conforms to the NKF-ASN Task Force Recommendations. Performed By: #### 4 6124 #### LAB [address] [place] [address] Jesus Najera M.D. [id number] Creatinine [Mass/Vol] 0.79 mg/dL Normal 0.50-1.30 [facility] Comment on above: Order Comment: [facility] has implemented the eGFR calculation approach that does not have a coefficient for race that conforms to the NKF-ASN Task Force Recommendations. Performed By: #### 4 6124 #### LAB [address] [place] [address] Jesus Najera M.D. [id number] EGFR 110 mL/min/1.73 m2 Normal >=60 [facility] Comment on above: Order Comment: [facility] has implemented the eGFR calculation approach that does not have a coefficient for race that conforms to the NKF-ASN Task Force Recommendations. Result Comment: Mallorie mated GFR was calculated using the 2020 CKD-EPI creatinine equation. Performed By: #### 4 6124 ####[facility] [address] [place] [address] Jesus Najera M.D. [id number] Glucose [Mass/Vol] 100 mg/dL High 65-99 [facility] Comment on above: Order Comment: [facility] has implemented the eGFR calculation approach that does not have a coefficient for race that conforms to the NKF-ASN Task Force Recommendations. Performed By: #### 4 6124 ####[facility] [address] [place] [address] Jesus Najera M.D. [id number] HCO3 (Bld) [Moles/Vol] 22 mmol/L Normal 21-32 [facility] Comment on above: Order Comment: [facility] has implemented the eGFR calculation approach that does not have a coefficient for race that conforms to the NKF-ASN Task Force Recommendations. Performed By: #### 4 6124 ####[facility] [address] [place] [address] Jesus Najera M.D. [id number] Potassium [Moles/Vol] 4.0 mmol/L Normal 3.5-5.1 [facility] Comment on above: Order Comment: [facility] has implemented the eGFR calculation approach that does not have a coefficient for race that conforms to the NKF-ASN Task Force Recommendations. Performed By: #### 4 6124 #### LAB [address] [place] [address] Jesus Najera M.D. [id number] Sodium [Moles/Vol] 138 mmol/L Normal 135-145 [facility] Comment on above: Order Comment: [facility] has implemented the eGFR calculation approach that does not have a coefficient for race that conforms to the NKF-ASN Task Force Recommendations. Performed By: #### 4 6124 ####[facility] [address] [place] [address] Jesus Najera M.D. [id number] Urea nitrogen [Mass/Vol] 5 mg/dL Low 8-25 [facility] Comment on above: Order Comment: [facility] has implemented the eGFR calculation approach that does not have a coefficient for race that conforms to the NKF-ASN Task Force Recommendations. Performed By: #### 4 6124 ####[facility] [address] [place] [address] Jesus Najera M.D. [id number] Urea nitrogen/Creatinine [Mass ratio] 6.3 mg/mg Low 10.0-20.0 [facility] Comment on above: Order Comment: [facility] has implemented the eGFR calculation approach that does not have a coefficient for race that conforms to the NKF-ASN Task Force Recommendations. Performed By: #### 4 6124 #### LAB [address] [place] [address] Jesus Najera M.D. [id number] CBCon 10-28-2024 AUTO NRBC 0.0 % Normal [facility] Comment on above: Performed By: #### 4 [id number] ####[facility] [address] [place] [address] Jesus Najera M.D. [id number] AUTO NRBC ABS COUNT 0.00 K/mcL Normal 0.00-0.00 [facility] Comment on above: Performed By: #### 4 [id number] #### LAB [address] [place] [address] Jesus Najera M.D. [id number] Erythrocyte distribution width (RBC) [Ratio] 13.7 % Normal 11.6-14.8 [facility] Comment on above: Performed By: #### 4 [id number] #### LAB [address] [place] [address] Jesus Najera M.D. [id number] Hematocrit (Bld) [Volume fraction] 43.6 % Normal 41.0-53.0 [facility] Comment on above: Performed By: #### 4 [id number] #### LAB [address] [place] [address] Jesus Najera M.D. [id number] Hemoglobin (Bld) [Mass/Vol] 14.5 g/dL Normal 13.5-17.5 [facility] Comment on above: Performed By: #### 4 [id number] #### LAB [address] [place] [address] Jesus Najera M.D. [id number] MCH (RBC) [Entitic mass] 32.4 pg Normal 26.0-34.0 [facility] Comment on above: Performed By: #### 4 [id number] #### LAB [address] [place] [address] Jesus Najera M.D. [id number] MCV (RBC) [Entitic vol] 97.5 fL Normal 80.0-100.0 [facility] Comment on above: Performed By: #### 4 [id number] #### LAB [address] [place] [address] Jesus Najera M.D. [id number] MEAN CORPUSCULAR HEMOGLOBIN CONC 33.3 g/dL Normal 31.0-37.0 [facility] Comment on above: Performed By: #### 4 [id number] #### LAB [address] [place] [address] Jesus Najera M.D. [id number] Platelet mean volume (Bld) [Entitic vol] 10.6 fL Normal 9.4-12.4 [facility] Comment on above: Performed By: #### 4 [id number] #### LAB [address] [place] [address] Jesus Najera M.D. [id number] Platelets (Bld) [#/Vol] 120 10*3/uL Low 150-400 [facility] Comment on above: Performed By: #### 4 [id number] #### LAB [address] [place] [address] Jesus Najera M.D. [id number] RBC (Bld) [#/Vol] 4.47 10*6/uL Low 4.50-5.90 [facility] Comment on above: Performed By: #### 4 [id number] #### LAB [address] [place] [address] Jesus Najera M.D. [id number] WBC (Bld) [#/Vol] 7.17 10*3/uL Normal 4.50-11.00 [facility] Comment on above: Performed By: #### 4 [id number] #### LAB [address] [place] [address] Jesus Najera M.D. [id number] MRSA CULTURE/SCREENon 2024 MRSA CULTURE/SCREEN MRSA CULTURE No Methicillin Resistant Staphylococcus (MRSA) Isolated Normal [facility] Comment on above: Performed By: #### 4 [id number] #### [facility] [address] [place], [place] [address] Sean Sears M.D. [id number] TYPE AND SCREENon 10-28-2024 TYPE AND SCREEN ABORH: A Positive AB SCREEN: Negative EXPIRATION DATE: 11/18/2024 23:59 EST [facility] XR CHEST AP/PA AND LATon XR CHEST AP/PA AND LAT EXAMINATION: XR CHEST AP/PA AND LAT HISTORY: ORDERING SYSTEM PROVIDED HISTORY: Pre-op testing, TECHNOLOGIST PROVIDED HISTORY: Illness/Other Reason for exam: pre-op Cancer History: n Surgery, RadiationHistory: n Encounter Type: Initial Additional signs and symptoms: n ORDERING SYSTEM PROVIDED DIAGNOSIS CODES: Z01.818 Pre-op testing COMPARISON: 04/02/2023 FINDINGS: Two-view chest x-ray. No pneumothorax, pleural effusion or focal airspace consolidation. Heart is normal in size. Bony thorax is unremarkable. IMPRESSION: No acute cardiopulmonary process. Workstation ID: [id number] Dictated by: SABI HERNÁNDEZ on SatOct 28, 2024 1:06:44 PM EDT Transcribed by: SABI HERNÁNDEZ on SatOct 28, 2024 1:06:44 PM EDT Finalized by: SABI HERNÁNDEZ on SatOct 28, 2024 1:06:44 PM EDT [facility] Comment on above: Order Comment: Injur y/Trauma or Illness?:Illness/Other How long have you had these symptoms (acute/chronic)?:Unknown Reason for exam?:pre-op History of cancer?:n Surgeries, chemotherapy, or radiation?:n Type of Exam?:Initial Additional signs and symptoms?:n ALCOHOL, MEDICALon 5 ALCOHOL MEDICAL 137.0 mg/dL High <10.0 [facility] Comment on above: Performed By: #### 4 5033 ####[facility] [address] [place] [address] Jesus Najera M.D. [id number] ALCOHOL MEDICAL 291.0 mg/dL High <10.0 [facility] Comment on above: Performed By: #### 4 5033 ####[facility] [address] [place] [address] Jesus Najera M.D. [id number] CBC WITH AUTO DIFFERENTIALon 10-14-2024 AUTO NRBC 0.0 % Normal [facility] Comment on above: Performed By: #### L [id number] #### LAB [address] [place] [address] Jesus Najera M.D. [id number] AUTO NRBC ABS COUNT 0.00 K/mcL Normal 0.00-0.00 [facility] Comment on above: Performed By: #### L [id number] #### LAB [address] [place] [address] Jesus Najera M.D. [id number] BASOPHILS ABSOLUTE COUNT 0.03 K/mcL Normal 0.00-0.30 [facility] Comment on above: Performed By: #### L [id number] #### LAB [address] [place] [address] Jesus Najera M.D. [id number] Basophils/100 WBC (Bld) 0.5 % [facility] Comment on above: Performed By: #### L [id number] #### LAB [address] [place] [address] Jesus Najera M.D. [id number] Eosinophils (Bld) [#/Vol] 0.05 10*3/uL Normal 0.00-0.50 [facility] Comment on above: Performed By: #### L [id number] #### LAB [address] [place] [address] Jesus Najera M.D. [id number] Eosinophils/100 WBC (Bld) 0.8 % Normal [facility] Comment on above: Performed By: #### L [id number] #### LAB [address] [place] [address] Jesus Najera M.D. [id number] Erythrocyte distribution width (RBC) [Ratio] 13.7 % Normal 11.6-14.8 [facility] Comment on above: Performed By: #### L [id number] ####[facility] [address] [place] [address] Jesus Najera M.D. [id number] Hematocrit (Bld) [Volume fraction] 43.3 % Normal 41.0-53.0 [facility] Comment on above: Performed By: #### L [id number] #### LAB [address] [place] [address] Jesus Najera M.D. [id number] Hemoglobin (Bld) [Mass/Vol] 15.1 g/dL Normal 13.5-17.5 [facility] Comment on above: Performed By: #### L [id number] #### LAB [address] [place] [address] Jesus Najera M.D. [id number] IG ABSOLUTE 0.03 K/mcL Normal 0.00-0.30 [facility] Comment on above: Performed By: #### L [id number] #### LAB [address] [place] [address] Jesus Najera M.D. [id number] IG PERCENT 0.50 % Normal [facility] Comment on above: Result Comment: The IG parameter is the percentage of metamyelocytes, myelocytes and promyelocytes. An immature granulocyte count (IG) of 1% or more suggests the possibility of infection, an IG count of 3% is very likely related to an infection. Performed By: #### L [id number] #### LAB [address] [place] [address] Jesus Najera M.D. [id number] Lymphocytes (Bld) [#/Vol] 1.70 10*3/uL Normal 0.90-4.00 [facility] Comment on above: Performed By: #### L [id number] #### LAB [address] [place] [address] Jesus Najera M.D. [id number] Lymphocytes/100 WBC (Bld) 27.6 % Normal [facility] Comment on above: Performed By: #### L [id number] #### LAB [address] [place] [address] Jesus Najera M.D. [id number] MCH (RBC) [Entitic mass] 32.5 pg Normal 26.0-34.0 [facility] Comment on above: Performed By: #### L [id number] #### LAB [address] [place] [address] Jesus Najera M.D. [id number] MCV (RBC) [Entitic vol] 93.3 fL Normal 80.0-100.0 [facility] Comment on above: Performed By: #### L [id number] ####[facility] [address] [place] [address] Jesus Najera M.D. [id number] MEAN CORPUSCULAR HEMOGLOBIN CONC 34.9 g/dL Normal 31.0-37.0 [facility] Comment on above: Performed By: #### L [id number] #### LAB [address] [place] [address] Jesus Najera M.D. [id number] Monocytes (Bld) [#/Vol] 0.47 10*3/uL Normal 0.30-0.90 [facility] Comment on above: Performed By: #### L [id number] #### LAB [address] [place] [address] Jesus Najera M.D. [id number] Monocytes/100 WBC (Bld) 7.6 % Normal [facility] Comment on above: Performed By: #### L [id number] #### LAB [address] [place] [address] Jesus Najera M.D. [id number] NEUTROPHILS ABSOLUTE COUNT 3.87 K/mcL Normal 1.70-7.00 [facility] Comment on above: Performed By: #### L [id number] #### LAB [address] [place] [address] Jesus Najera M.D. [id number] Neutrophils/100 WBC (Bld) 63.0 % Normal [facility] Comment on above: Performed By: #### L [id number] #### LAB [address] [place] [address] Jesus Najera M.D. [id number] Platelet mean volume (Bld) [Entitic vol] 9.8 fL Normal 9.4-12.4 [facility] Comment on above: Performed By: #### L [id number] ####[facility] [address] [place] [address] Jesus Najera M.D. [id number] Platelets (Bld) [#/Vol] 238 10*3/uL Normal 150-400 [facility] Comment on above: Performed By: #### L [id number] ####[facility] [address] [place] [address] Jesus Najera M.D. [id number] RBC (Bld) [#/Vol] 4.64 10*6/uL Normal 4.50-5.90 [facility] Comment on above: Performed By: #### L [id number] ####[facility] [address] [place] [address] Jesus Najera M.D. [id number] WBC (Bld) [#/Vol] 6.15 10*3/uL Normal 4.50-11.00 [facility] Comment on above: Performed By: #### L [id number] ####[facility] [address] [place] [address] Jesus Najera M.D. [id number] COMPREHENSIVE METABOLIC PANE Kaz 10-14-2024 Albumin [Mass/Vol] 4.6 g/dL Normal 3.2-5.2 [facility] Comment on above: Order Comment: [facility] has implemented the eGFR calculation approach that does not have a coefficient for race that conforms to the NKF-ASN Task Force Recommendations. Performed By: #### 4 6126 ####[facility] [address] [place] [address] Jesus Najera M.D. [id number] ALP [Catalytic activity/Vol] 61 U/L Normal 40-150 [facility] Comment on above: Order Comment: [facility] has implemented the eGFR calculation approach that does not have a coefficient for race that conforms to the NKF-ASN Task Force Recommendations. Performed By: #### 4 6126 #### LAB [address] [place] [address] Jesus Najera M.D. [id number] ALT [Catalytic activity/Vol] 36 U/L Normal 0-50 U/L [facility] Comment on above: Order Comment: [facility] has implemented the eGFR calculation approach that does not have a coefficient for race that conforms to the NKF-ASN Task Force Recommendations. Performed By: #### 4 6126 #### LAB [address] [place] [address] Jesus Najera M.D. [id number] Anion gap [Moles/Vol] 24 mmol/L High [address] Comment on above: Order Comment: [facility] has implemented the eGFR calculation approach that does not have a coefficient for race that conforms to the NKF-ASN Task Force Recommendations. Performed By: #### 4 6126 #### LAB [address] [place] [address] Jesus Najera M.D. [id number] AST [Catalytic activity/Vol] 55 U/L High 0-50 U/L [facility] Comment on above: Order Comment: [facility] has implemented the eGFR calculation approach that does not have a coefficient for race that conforms to the NKF-ASN Task Force Recommendations. Performed By: #### 4 6126 #### LAB [address] [place] [address] Jesus Najera M.D. [id number] Bilirubin [Mass/Vol] 0.4 mg/dL Normal 0.0-1.3 [facility] Comment on above: Order Comment: [facility] has implemented the eGFR calculation approach that does not have a coefficient for race that conforms to the NKF-ASN Task Force Recommendations. Performed By: #### 4 6126 #### LAB [address] [place] [address] Jesus Najera M.D. [id number] Calcium [Mass/Vol] 8.8 mg/dL Normal 8.4-10.2 [facility] Comment on above: Order Comment: [facility] has implemented the eGFR calculation approach that does not have a coefficient for race that conforms to the NKF-ASN Task Force Recommendations. Performed By: #### 4 6126 #### LAB [address] [place], [place] [address] Jesus Najera M.D. [id number] Chloride [Moles/Vol] 99 mmol/L Normal 98-108 [facility] Comment on above: Order Comment: [facility] has implemented the eGFR calculation approach that does not have a coefficient for race that conforms to the NKF-ASN Task Force Recommendations. Performed By: #### 4 6126 #### LAB [address] [place], [place] [address] Jesus Najera M.D. [id number] Creatinine [Mass/Vol] 0.88 mg/dL Normal 0.50-1.30 [facility] Comment on above: Order Comment: [facility] has implemented the eGFR calculation approach that does not have a coefficient for race that conforms to the NKF-ASN Task Force Recommendations. Performed By: #### 4 6126 #### LAB [address] [place] [id number] Jesus Najera M.D. [id number] EGFR 107 mL/min/1.73 m2 Normal >=60 [facility] Comment on above: Order Comment: [facility] has implemented the eGFR calculation approach that does not have a coefficient for race that conforms to the NKF-ASN Task Force Recommendations. Result Comment: Mallorie mated GFR was calculated using the 2020 CKD-EPI creatinine equation. Performed By: #### 4 6126 #### LAB [address] [place], [place] [address] Jesus Najera M.D. [id number] Glucose [Mass/Vol] 92 mg/dL Normal 65-99 [facility] Comment on above: Order Comment: [facility] has implemented the eGFR calculation approach that does not have a coefficient for race that conforms to the NKF-ASN Task Force Recommendations. Performed By: #### 4 6126 #### LAB [address] [place] [address] Jesus Najera M.D. [id number] HCO3 (Bld) [Moles/Vol] 21 mmol/L Normal 21-32 [facility] Comment on above: Order Comment: [facility] has implemented the eGFR calculation approach that does not have a coefficient for race that conforms to the NKF-ASN Task Force Recommendations. Performed By: #### 4 6126 #### LAB [address] [place] [address] Jesus Najera M.D. [id number] Potassium [Moles/Vol] 3.9 mmol/L Normal 3.5-5.1 [facility] Comment on above: Order Comment: [facility] has implemented the eGFR calculation approach that does not have a coefficient for race that conforms to the NKF-ASN Task Force Recommendations. Performed By: #### 4 6126 #### LAB [address] [place] [address] Jesus Najera M.D. [id number] Protein [Mass/Vol] 7.3 g/dL Normal 6.0-8.0 [facility] Comment on above: Order Comment: [facility] has implemented the eGFR calculation approach that does not have a coefficient for race that conforms to the NKF-ASN Task Force Recommendations. Performed By: #### 4 6126 #### LAB [address] [place] [address] Jesus Najera M.D. [id number] Sodium [Moles/Vol] 140 mmol/L Normal 135-145 [facility] Comment on above: Order Comment: [facility] has implemented the eGFR calculation approach that does not have a coefficient for race that conforms to the NKF-ASN Task Force Recommendations. Performed By: #### 4 6126 #### LAB [address] [address] Jesus Najera M.D. [id number] Urea nitrogen [Mass/Vol] 4 mg/dL Low 8-25 [facility] Comment on above: Order Comment: [facility] has implemented the eGFR calculation approach that does not have a coefficient for race that conforms to the NKF-ASN Task Force Recommendations. Performed By: #### 4 6126 #### LAB [address] [address] Jesus Najera M.D. [id number] Urea nitrogen/Creatinine [Mass ratio] 4.5 mg/mg Low 10.0-20.0 [facility] Comment on above: Order Comment: [facility] has implemented the eGFR calculation approach that does not have a coefficient for race that conforms to the NKF-ASN Task Force Recommendations. Performed By: #### 4 6126 #### LAB [address] [address] Jesus Najera M.D. [id number] DRUGS OF ABUSE SCREEN, URINE on 10-14-2024 AMPHETAMINE SCREEN, URINE Not detected Normal None Detected [facility] Comment on above: Order Comment: Scree n results should be used for treatment purposes only.Specimen will be kept for 2 weeks, if the sample is adequate. Confirmation testing can be initiated by calling the lab within 2 weeks. Result Comment: Urin e Amphetamine Cutoff: < 1000 ng/mL = None Detected Performed By: #### 4 [id number] #### LAB [address] [address] Jesus Najera M.D. [id number] BARBITURATE SCREEN URINE Not detected Normal None Detected [facility] Comment on above: Order Comment: Scree n results should be used for treatment purposes only.Specimen will be kept for 2 weeks, if the sample is adequate. Confirmation testing can be initiated by calling the lab within 2 weeks. Result Comment: Urin e Barbiturates Cutoff: < 200 ng/mL = None Detected Performed By: #### 4 [id number] ####[facility] [address] [address] Jesus Najera M.D. [id number] BENZODIAZEPINE SCREEN, URINE Not detected Normal None Detected [facility] Comment on above: Order Comment: Scree n results should be used for treatment purposes only.Specimen will be kept for 2 weeks, if the sample is adequate. Confirmation testing can be initiated by calling the lab within 2 weeks. Result Comment: Urin e Benzodiazepine Cutoff: < 200 ng/mL = None Detected Performed By: #### 4 [id number] ####[facility] [address] [address] Jesus Najera M.D. [id number] BUPRENORPHINE, URINE Not detected Normal None Detected [facility] Comment on above: Order Comment: Scree n results should be used for treatment purposes only.Specimen will be kept for 2 weeks, if the sample is adequate. Confirmation testing can be initiated by calling the lab within 2 weeks. Result Comment: Urin e Buprenorphine Cutoff: < 5 ng/mL = None Detected Performed By: #### 4 [id number] #### LAB [address] [address] Jesus Najera M.D. [id number] CANNABINOID SCREEN URINE Positive Abnormal None Detected [facility] Comment on above: Order Comment: Scree n results should be used for treatment purposes only.Specimen will be kept for 2 weeks, if the sample is adequate. Confirmation testing can be initiated by calling the lab within 2 weeks. Result Comment: Urin e Cannabinoids Cutoff: < 50 ng/mL = None Detected Performed By: #### 4 [id number] ####[facility] [address] [address] Jesus Najera M.D. [id number] COCAINE, SCREEN URINE Not detected Normal None Detecte d [facility] Comment on above: Order Comment: Scree n results should be used for treatment purposes only.Specimen will be kept for 2 weeks, if the sample is adequate. Confirmation testing can be initiated by calling the lab within 2 weeks. Result Comment: Urin e Cocaine Cutoff: < 300 ng/mL = None Detected Performed By: #### 4 [id number] ####[facility] [address] [address] Jesus Najera M.D. [id number] FENTANYL, URINE Not detected Normal None Detected [facility] Comment on above: Order Comment: Scree n results should be used for treatment purposes only.Specimen will be kept for 2 weeks, if the sample is adequate. Confirmation testing can be initiated by calling the lab within 2 weeks. Result Comment: Urin e Fentanyl Cutoff: < 1 ng/mL = None Detected Performed By: #### 4 [id number] #### LAB [address] [address] Jesus Najera M.D. [id number] METHADONE SCREEN, URINE Not detected Normal None Detected [facility] Comment on above: Order Comment: Scree n results should be used for treatment purposes only.Specimen will be kept for 2 weeks, if the sample is adequate. Confirmation testing can be initiated by calling the lab within 2 weeks. Result Comment: Urin e Methadone Cutoff: < 300 ng/mL = None Detected Performed By: #### 4 [id number] #### LAB [address] [address] Jesus Najera M.D. [id number] OPIATE SCREEN URINE Not detected Normal None Detected [facility] Comment on above: Order Comment: Scree n results should be used for treatment purposes only.Specimen will be kept for 2 weeks, if the sample is adequate. Confirmation testing can be initiated by calling the lab within 2 weeks. Result Comment: Urin e Opiates Cutoff: < 300 ng/mL = None Detected Performed By: #### 4 [id number] ####[facility] [address] [address] Jesus Najera M.D. [id number] OXYCODONE SCREEN, URINE Not detected Normal None Detected [facility] Comment on above: Order Comment: Scree n results should be used for treatment purposes only.Specimen will be kept for 2 weeks, if the sample is adequate. Confirmation testing can be initiated by calling the lab within 2 weeks. Result Comment: Urin e Oxycodone Cutoff: < 100 ng/mL = None Detected Performed By: #### 4 [id number] ####[facility] [address] [address] Jesus Najera M.D. [id number] ED Prov Noteon 10-14-2024 ED Prov Note [facility] ED NIRMALA Note: NAME: Lon Burks 49 y.o. CSN: [id number] PCP: Rylie Gore CNP History: Chief Complaint: Psychiatric Evaluation HPI: The history was obtained from the patient. Lon is a 49 y.o. male who presents with a chief complaint of Psychiatric Evaluation. Patient has a history of alcohol abuse, depression/anxiety. Presents to the emergency department today with law enforcement escort and pink slip for concern for suicidal ideation. Patient states that he had contacted a counseling center and just wanted to talk to somebody" but then he states that he told them that he had a "gun under his chin". He does indicate that he has been drinking alcohol today and is intoxicated. He states that he did not mean what he said and states that he is not feeling suicidal. He is agitated throughout our exam. He denies any prior history of alcohol withdrawal with seizures and states that he was previously sober however has been drinking heavily again. He does not indicate how much he has been drinking today and he does not indicate how much he has been drinking daily. During evaluation, patient states "just go ahead and shoot me up with all of the good medications. What do I have to do? Do I have to get violent to get some medications around here?" PMHx: Past Medical History: Diagnosis Date - Alcohol abuse - Anxiety - Back pain - Bleeding ulcer - Cirrhosis (HCC) - Depression - Fractures - GERD (gastroesophageal reflux disease) - HL (hearing loss) PMSx: Past Surgical History: Procedure Laterality Date - HARDWARE REMOVAL LOWER EXTREMITY Right 04/28/2020 Procedure: SCREW REMOVAL RIGHT LEG; Surgeon: Jaill Fisher MD; Location: Main OR; Service: Orthopedic - LAMINECTOMY DECOMP THORACIC W/ FUSION SINGLE LEVEL Bilateral 08/03/2021 Procedure: T9-10 Laminectomy, Removal and replacement of Spinal Cord Stimulator and right flank IPG, T10 Laminoplasty and Fusion; Surgeon: Ricky Martell MD; Location: Main OR; Service: Neurological - LAMINECTOMY DECOMPRESSION LUMBAR 3 LEVELS Bilateral 02/20/2022 Procedure: LAMINECTOMY DECOMPRESSION LUMBAR 3 LEVELS; Surgeon: Ricky Martell MD; Location: Main OR; Service: Neurological - ORIF TIBIAL PLATEAU Right 01/16/2020 Procedure: OPEN REDUCTION INTERNAL FIXATION TIBIAL PLATEAU; Surgeon: Jalil Fisher MD; Location: Main OR; Service: Orthopedic - PAIN PUMP TRIAL N/A 09/05/2022 Procedure: INSERTION PAIN PUMP TRIAL; Surgeon: Jalil Hager DO; Location: Main OR; Service: Pain Management - SPINAL CORD STIMULATOR PERMANENT Bilateral 12/02/2020 Procedure: T10 Laminectomy, insertion of dorsal column spinal cord stimulator electrode(s) and right flank IPG insertion; Surgeon: Ricky Martell MD; Location: Main OR; Service: Neurological - SPINAL CORD STIMULATOR PERMANENT Bilateral 08/03/2021 Procedure: Removal and replacement of Spinal Cord Stimulator and right flank IPG; Surgeon: Ricky Martell MD; Location: Main OR; Service: Neurological - SPINAL CORD STIMULATOR PERMANENT N/A 02/20/2022 Procedure: T9-T10 Laminectoy, Removal REtained SCS, Removal of right Flank IPG, Right L3/4, Right L5/S1 Laminectomies, insertion of DRG Electrodes; Surgeon: Ricky Martell MD; Location: Main OR; Service: Neurological - SPINAL CORD STIMULATOR TEMPORARY Bilateral 11/15/2020 Procedure: Bilateral percutaneous insertion of trial spinal cord stimulator electrode(s) via L1-L2 Approach, fluoroscopic directed.; Surgeon: Ricky Martell MD; Location: Main OR; Service: Neurological FAM. Hx: Family History Problem Relation Age of Onset - No Known Problems Mother - No Known Problems Father - No Known Problems Brother - Clotting disorder Neg Hx - Heart disease Neg Hx SOC. Hx: Social History [1] MEDs: Previous Medications Medication Sig - DULoxetine (CYMBALTA) 30 MG capsule Take 1 (one) capsule (30 mg total) by mouth daily . (Patient not taking: Reported on 10/05/2024 .) - hydrOXYzine (VISTARIL) 50 MG capsule 1 (one) capsule (50 mg total) . (Patient not taking: Reported on 10/05/2024 .) ALL: Allergies[2] ROS: Positives and pertinent negatives as per HPI. All other systems were reviewed and are negative. Physical Exam: Patient Vitals for the past 24 hrs: BP Temp Temp src Pulse Resp SpO2 10/14/24 1546 -- -- -- -- 16 -- 10/14/24 1453 132/82 98 degrees F (36.7 degrees C) Oral 90 -- 95 % Physical Exam Vitals and nursing note reviewed. Constitutional: Appearance: He is well-developed. HENT: Head: Normocephalic and atraumatic. Nose: Nose normal. Eyes: General: No scleral icterus. Conjunctiva/sclera: Conjunctivae normal. Cardiovascular: Rate and Rhythm: Normal rate and regular rhythm. Heart sounds: Normal heart sounds. No murmur heard. Musculoskeletal: Right lower leg: No swelling. (more content not included)... Normal [facility] Discharge Instructionon 06-17 Discharge Instruction [facility] Medical Records Department [address] [place] [address] Instructions for Home/Discharge Instructions 07/13/24922 MR#: [id number] Acct: [id number] Name: LON BURKS Rep #: [id number] : 1975 48 From: Alejo Whitfield DO PCP: RYLIE GORE Status:ADM IN Discharge Instructions Diet Discharge Diet: No restrictions DC O2, CPAP, BIPAP needs Home O2 Discharge instructions: No Dressing / Incision Discharge Activity: No Restrictions Follow Up Care Test Results: Test results from this visit will be discussed in further detail at your follow-up appointment, if applicable. Discharge Plan Admission Admit Date/Time: 07/10/24 20:26 Primary Reason for Your Visit: alcohol detox Attending Provider: Alejo Whitfield Primary Care Provider: RYLIE GORE Consulting Providers: Luis Burt; Kunal Roberson Discharge Orders/Prescriptions Prescriptions: New duloxetine 30 mg Capsule,Delayed Release(Dr/Ec) 30 mg PO DAILY 30 Days Qty: 30 2RF No Action NK Referrals / Follow Up: RYLIE GORE [Other] RYLIE GORE [Other] Disposition Disposition (needs filled in before D/C Order can be placed): Home, Self Care 07/13/24924 Alejo Whitfield DO CC: Dr. Luis Burt DO; Dr. Kunal Roberson, DO; RYLIE GORE Signed Normal [facility] Phosphoruson 07-12-2024 Phosphate [Mass/Vol] 4.0 mg/dL Normal 2.7-4.5 [facility] Comment on above: Performed By: #### L 501.2300 ####[facility] [address] [place], [address] Serum phosphorus measurement Ordered By: Luis Moulton on 07-12-2024 Phosphorus Level 4.0 mg/dL 2.7-4.5 [facility] Absolute neutrophil countOrd ered By: Luis Moulton on 07-11-2024 Neutrophils (Bld) [#/Vol] 1.8 10*3/uL Low 2.0-7.7 [facility] Alcohol, Blood (Medical)-Ser umon 07-11-2024 SERUM ETOH < 10.1 Normal <=10.0 [facility] Comment on above: Result Comment: This test is for medical purposes only. The legal definition of intoxication varies according to local law. Performed By: #### L 501.9100 #### [facility] [address] [place], [address] SERUM ETOH 105.0 mg/dL High <=10.0 [facility] Comment on above: Result Comment: This test is for medical purposes only. The legal definition of intoxication varies according to local law. Performed By: #### L 501.9100 #### [facility] [address] [place] [id number] Anion gap in Serum or Plasma Ordered By: Luis Moulton on 07-11-2024 Anion gap [Moles/Vol] 17 mmol/L High 5-15 [facility] BUN/creatinine ratioOrdered By: Luis Moulton on 07-11-2024 Urea nitrogen/Creatinine [Mass ratio] 4.7 mg/mg Low 10-20 [facility] Basophil percentageOrdered B y: Luis Moulton on 07-11-2024 Basophils/100 WBC (Bld) 1.0 % 0-1 [facility] Bilirubin, totalOrdered By: Luis Moulton on 07-11-2024 Bilirubin [Mass/Vol] 0.71 mg/dL 0.00-1.30 [facility] CBC W/Diff, Automatedon 06-17 Absolute Lymph 0.74 X10 3/uL Low 0.83-4.51 [facility] Comment on above: Performed By: #### L 100.0100, L500.4050, L501.2300, L500.4100 #### [facility] [address] [place], [address] Absolute Neut 1.8 X10 3/uL Low 2.0-7.7 [facility] Comment on above: Performed By: #### L 100.0100, L500.4050, L501.2300, L500.4100 #### [facility] [address] [place], [address] Basophils/100 WBC (Bld) 1.0 % Normal 0-1 [facility] Comment on above: Performed By: #### L 100.0100, L500.4050, L501.2300, L500.4100 #### [facility] [address] [place], [address] Eosinophils/100 WBC (Bld) 1.9 % Normal 0-5 [facility] Comment on above: Performed By: #### L 100.0100, L500.4050, L501.2300, L500.4100 #### [facility] [address] [place], [address] Erythrocyte distribution width (RBC) [Ratio] 15.2 % High 11.6-14.6 [facility] Comment on above: Performed By: #### L 100.0100, L500.4050, L501.2300, L500.4100 #### [facility] [address] [place], [address] Hematocrit (Bld) [Volume fraction] 38.1 % Low 40-54 [facility] Comment on above: Performed By: #### L 100.0100, L500.4050, L501.2300, L500.4100 #### [facility] [address] [place], [address] Hemoglobin (Bld) [Mass/Vol] 13.5 g/dL Normal 13.0-16.5 [facility] Comment on above: Performed By: #### L 100.0100, L500.4050, L501.2300, L500.4100 #### [facility] [address] [place], [address] IG% 0.300 Normal 0.0-0.9 [facility] Comment on above: Result Comment: IG% - Immature Granulocytes (promyelocytes, myelocytes and metamyelocytes) > 1% indicates that a LEFT SHIFT is Present. Performed By: #### L 100.0100, L500.4050, L501.2300, L500.4100 #### [facility] [address] [place], [address] Lymphocytes/100 WBC (Bld) 24.0 % Normal 19-41 [facility] Comment on above: Performed By: #### L 100.0100, L500.4050, L501.2300, L500.4100 #### [facility] [address] [place], [address] MCH (RBC) [Entitic mass] 31.5 pg Normal 27.0-32.0 [facility] Comment on above: Performed By: #### L 100.0100, L500.4050, L501.2300, L500.4100 #### [facility] [address] [place], [address] MCHC (RBC) [Mass/Vol] 35.4 g/dL Normal 32-36 [facility] Comment on above: Performed By: #### L 100.0100, L500.4050, L501.2300, L500.4100 #### [facility] [address] [place], [address] MCV (RBC) [Entitic vol] 88.8 fL Normal 80-94 [facility] Comment on above: Performed By: #### L 100.0100, L500.4050, L501.2300, L500.4100 #### [facility] [address] [place], [address] Monocytes/100 WBC (Bld) 13.3 % High 0-10 [facility] Comment on above: Performed By: #### L 100.0100, L500.4050, L501.2300, L500.4100 #### [facility] [address] [place], [address] Neutrophils/100 WBC (Bld) 59.5 % Normal 47-70 [facility] Comment on above: Performed By: #### L 100.0100, L500.4050, L501.2300, L500.4100 #### [facility] [address] [place], [address] Nucleated RBC (Bld) [#/Vol] 0 10*3/uL Normal 0-5 [facility] Comment on above: Performed By: #### L 100.0100, L500.4050, L501.2300, L500.4100 #### [facility] [address] [place], [address] Platelet mean volume (Bld) [Entitic vol] 10.3 fL Normal 6.2-12.0 [facility] Comment on above: Performed By: #### L 100.0100, L500.4050, L501.2300, L500.4100 #### [facility] [address] [place], [address] Platelets (Bld) [#/Vol] 87 10*3/uL Low 150-450 [facility] Comment on above: Performed By: #### L 100.0100, L500.4050, L501.2300, L500.4100 #### [facility] [address] [place], [address] RBC (Bld) [#/Vol] 4.29 10*6/uL Low 4.6-6.2 [facility] Comment on above: Performed By: #### L 100.0100, L500.4050, L501.2300, L500.4100 #### [facility] [address] [place], [address] RDW SD 49.9 fl High 35.1-43.9 [facility] Comment on above: Performed By: #### L 100.0100, L500.4050, L501.2300, L500.4100 #### [facility] [address] [place], [address] WBC (Bld) [#/Vol] 3.1 10*3/uL Low 4.4-11.0 [facility] Comment on above: Performed By: #### L 100.0100, L500.4050, L501.2300, L500.4100 #### [facility] [address] [place], [address] Calculated very low density lipoprotein (VLDL) cholesterol measurementOrdered By: Luis Moulton on 07-11-2024 VLDL Cholesterol 10 mg/dL 5-40 [facility] Carbon dioxide, total [Moles /volume] in Central venous bloodOrdered By: Luis Moulton on 07-11-2024 CO2 [Moles/Vol] 23.2 mmol/L 21.0-32.0 [facility] Chloride assayOrdered By: Joesph Moulton on 07-11-2024 Chloride [Moles/Vol] 101 mmol/L 98-108 [facility] Comprehensive Metabolic Prof ilon 07-11-2024 Albumin [Mass/Vol] 4.5 g/dL Normal 3.5-5.0 [facility] Comment on above: Performed By: #### L 100.0100, L500.4050, L501.2300, L500.4100 #### [facility] [address] [place], [address] Albumin/Globulin [Mass ratio] 1.8 {ratio} Normal 0.9-2.4 [facility] Comment on above: Performed By: #### L 100.0100, L500.4050, L501.2300, L500.4100 #### [facility] [address] [place], [address] ALK PHOS 72 U/L Normal 40-129 [facility] Comment on above: Performed By: #### L 100.0100, L500.4050, L501.2300, L500.4100 #### [facility] [address] [place], [address] ALT [Catalytic activity/Vol] 117 U/L High <=46 [facility] Comment on above: Performed By: #### L 100.0100, L500.4050, L501.2300, L500.4100 #### [facility] [address] [place], [address] AST [Catalytic activity/Vol] 177 U/L High <=37 [facility] Comment on above: Performed By: #### L 100.0100, L500.4050, L501.2300, L500.4100 #### [facility] [address] [place], [address] Bilirubin [Mass/Vol] 0.71 mg/dL Normal 0.00-1.30 [facility] Comment on above: Performed By: #### L 100.0100, L500.4050, L501.2300, L500.4100 #### [facility] [address] [place], [address] BUN/CRE 4.7 RATIO Low 10-20 [facility] Comment on above: Performed By: #### L 100.0100, L500.4050, L501.2300, L500.4100 #### [facility] [address] [place], [address] Calcium [Mass/Vol] 8.8 mg/dL Normal 7.6-11.0 [facility] Comment on above: Performed By: #### L 100.0100, L500.4050, L501.2300, L500.4100 #### [facility] [address] [place], [address] Chloride [Moles/Vol] 101 mmol/L Normal 98-108 [facility] Comment on above: Performed By: #### L 100.0100, L500.4050, L501.2300, L500.4100 #### [facility] [address] [place], [address] CO2 [Moles/Vol] 23.2 mmol/L Normal 21.0-32.0 [facility] Comment on above: Performed By: #### L 100.0100, L500.4050, L501.2300, L500.4100 #### [facility] [address] [place], [address] Creatinine [Mass/Vol] 0.68 mg/dL Low 0.70-1.20 [facility] Comment on above: Performed By: #### L 100.0100, L500.4050, L501.2300, L500.4100 #### [facility] [address] [place], [address] ECRCL 119.61 ml/min Normal 50-250 [facility] Comment on above: Performed By: #### L 100.0100, L500.4050, L501.2300, L500.4100 #### [facility] [address] [place], [address] GAP 17 High 5-15 [facility] Comment on above: Performed By: #### L 100.0100, L500.4050, L501.2300, L500.4100 #### [facility] [address] [place], [address] GFR/1.73 sq M.predicted among non-blacks MDRD (S/P/Bld) [Vol rate/Area] 116 mL/min/{1.73_m2} Normal >60 [facility] Comment on above: Result Comment: mL/m in/1.73m2 CKD-EPI Creatinine Equation (2020) Performed By: #### L 100.0100, L500.4050, L501.2300, L500.4100 #### [facility] [address] [place], [address] Globulin (S) [Mass/Vol] 2.5 g/dL Normal 2.2-4.2 [facility] Comment on above: Performed By: #### L 100.0100, L500.4050, L501.2300, L500.4100 #### [facility] [address] [place], [address] Glucose [Mass/Vol] 96 mg/dL Normal 70-99 [facility] Comment on above: Performed By: #### L 100.0100, L500.4050, L501.2300, L500.4100 #### [facility] [address] [place], [address] Potassium [Moles/Vol] 3.8 mmol/L Normal 3.3-5.1 [facility] Comment on above: Performed By: #### L 100.0100, L500.4050, L501.2300, L500.4100 #### [facility] [address] [place], [address] Sodium [Moles/Vol] 141 mmol/L Normal 133-145 [facility] Comment on above: Performed By: #### L 100.0100, L500.4050, L501.2300, L500.4100 #### [facility] [address] [place], [address] T PROT 6.9 g/dL Normal 5.9-8.4 [facility] Comment on above: Performed By: #### L 100.0100, L500.4050, L501.2300, L500.4100 #### [facility] [address] [place], [place], [address] Urea nitrogen [Mass/Vol] 3 mg/dL Low 4-19 [facility] Comment on above: Performed By: #### L 100.0100, L500.4050, L501.2300, L500.4100 #### [facility] [address] [place], [address] Eosinophil percentageOrdered By: Luis Moulton on 07-11-2024 Eosinophils/100 WBC (Bld) 1.9 % 0-5 [facility] Erythrocyte distribution wid th (RBC) [Ratio]Ordered By: Luis Moulton on 07-11-2024 Erythrocyte distribution width (RBC) [Entitic vol] 49.9 fL High 35.1-43.9 [facility] Erythrocyte distribution wid th ratioOrdered By: Luis Moulton on 07-11-2024 Erythrocyte distribution width (RBC) [Ratio] 15.2 % High 11.6-14.6 [facility] Estimation of creatinine bon aranceOrdered By: Luis Moulton on 07-11-2024 Estimated Creatinine Clearance Calc 119.61 ml/min 50-250 [facility] Ethanol [Mass/Vol]Ordered By : Kunal Roberson on 07-11-2024 Ethyl Alcohol Level < 10.1 mg/dL <10.1 [facility] Comment on above: This test is for med ical purposes only. The legal definition of intoxication varies according to local law. GFR/1.73 sq M.predicted beka g non-blacks MDRD (S/P/Bld) [Vol rate/Area]Ordered By: Luis Moulton on 07-11-2024 Estimated GFR (MDRD) Non-Af Amer 116 >60 [facility] Comment on above: mL/min/1.73m2 CKD-EP I Creatinine Equation (2020) Hematocrit Auto (Bld) [Volum e fraction]Ordered By: Luis Moulton on 07-11-2024 Hematocrit (Bld) [Volume fraction] 38.1 % Low 40-54 [facility] Hemoglobin measurementOrdere d By: Luis Moulton on 07-11-2024 Hemoglobin (Bld) [Mass/Vol] 13.5 g/dL 13.0-16.5 [facility] Immature granulocytes/100 WB C Auto (Bld)Ordered By: Luis Moulton on 07-11-2024 Immature granulocytes/100 WBC (Bld) 0.300 % 0.0-0.9 [facility] Comment on above: IG% - Immature Granu locytes (promyelocytes, myelocytes and metamyelocytes) > 1% indicates that a LEFT SHIFT is Present. LDL calc ser/plasOrdered By: Luis Moulton on 07-11-2024 LDL Cholesterol, Calculated 82 mg/dL [facility] Comment on above: Mouzkzswma=722-177 m g/dL & Higher Gjyj=917 mg/dL or greater Laboratory - Chemistry and C hemistry - challengeOrdered By: Luis Moulton on 07-11-2024 AST [Catalytic activity/Vol] 177 U/L High <38 [facility] Lipid Profileon 07-11-2024 CHOL:HDL 2.16 Normal [facility] Comment on above: Performed By: #### L 100.0100, L500.4050, L501.2300, L500.4100 #### [facility] [address] [place], [place], [id number] Cholesterol [Mass/Vol] 172 mg/dL Normal <=200 [facility] Comment on above: Result Comment: Chol esterol level, Desirable <200 mg/dL Borderline high cholesterol 200-239 mg/dL High cholesterol >=240 mg/dL Recommendations of the NCEP Adult Treatment Panel for the following risk-cutoff thresholds for the [place] population. Performed By: #### L 100.0100, L500.4050, L501.2300, L500.4100 #### [facility] [address] [place], [place], [id number] Cholesterol in HDL [Mass/Vol] 80 mg/dL Normal [facility] Comment on above: Result Comment: Sandra onal Cholesterol Education Program (NCEP) guidelines: <40 mg/dL: Low HDL-cholesterol (major risk factor for CHD) >= 60 mg/dL: High HDL-cholesterol (negative risk factor for CHD) HDL-cholesterol is affected by a number of factors, e.g. smoking, exercise, hormones, sex and age. Performed By: #### L 100.0100, L500.4050, L501.2300, L500.4100 #### [facility] [address] [place], [address] Cholesterol in LDL [Mass/Vol] 82 mg/dL Normal [facility] Comment on above: Result Comment: Bord jgupvv=919-592 mg/dL Higher Tghi=823 mg/dL or greater Performed By: #### L 100.0100, L500.4050, L501.2300, L500.4100 #### [facility] [address] [place], [address] Cholesterol in VLDL [Mass/Vol] 10 mg/dL Normal 5-40 [facility] Comment on above: Performed By: #### L 100.0100, L500.4050, L501.2300, L500.4100 #### [facility] [address] [place], [address] Triglyceride [Mass/Vol] 52 mg/dL Normal [facility] Comment on above: Result Comment: The drugs N-Acetylcysteine and Metamizole may falsely depress this assay. Normal range: <150 mg/dL Borderline High: 150-199 mg/dL High: 200-499 mg/dL Very High: >500 mg/dL Performed By: #### L 100.0100, L500.4050, L501.2300, L500.4100 #### [facility] [address] [place], [address] Lymphocytes Auto (Unsp spec) [#/Vol]Ordered By: Luis Moulton on 07-11-2024 Lymphocytes (Bld) [#/Vol] 0.74 10*3/uL Low 0.83-4.51 [facility] Lymphocytes/100 WBC Auto (Un sp spec)Ordered By: Luis Moulton on 07-11-2024 Lymphocytes/100 WBC (Bld) 24.0 % 19-41 [facility] MCV (mean corpuscular volume ) determinationOrdered By: Luis Moulton on 07-11-2024 MCV (RBC) [Entitic vol] 88.8 fL 80-94 [facility] Mean corpuscular hemoglobin (MCH) determinationOrdered By: Luis Moulton on 07-11-2024 MCH (RBC) [Entitic mass] 31.5 pg 27.0-32.0 [facility] Mean corpuscular hemoglobin concentration (MCHC) determinationOrdered By: Luis Moulton on 07-11-2024 MCHC (RBC) [Mass/Vol] 35.4 g/dL 32-36 [facility] Mean platelet volume determi nationOrdered By: Luis Moulton on 07-11-2024 Platelet mean volume (Bld) [Entitic vol] 10.3 fL 6.2-12.0 [facility] Monocyte percentageOrdered B y: Luis Moulton on 07-11-2024 Monocytes/100 WBC (Bld) 13.3 % High 0-10 [facility] Neutrophil percentageOrdered By: Luis Moulton on 07-11-2024 Neutrophils/100 WBC (Bld) 59.5 % 47-70 [facility] Nucleated red blood cell per centageOrdered By: Luis Moulton on 07-11-2024 Nucleated RBC/100 WBC (Bld) [Ratio] 0 % 0-5 [facility] Phosphoruson 07-11-2024 Phosphate [Mass/Vol] 4.2 mg/dL Normal 2.7-4.5 [facility] Comment on above: Performed By: #### L 100.0100, L500.4050, L501.2300, L500.4100 #### [facility] [address] [place], [address] Platelet countOrdered By: Joesph Moulton on 07-11-2024 Platelets (Bld) [#/Vol] 87 10*3/uL Low 150-450 [facility] Potassium (Unsp spec) [Mass/ Vol]Ordered By: Luis Moulton on 07-11-2024 Potassium [Moles/Vol] 3.8 mmol/L 3.3-5.1 [facility] RBC Auto (Bld) [#/Vol]Ordere d By: Luis Moulton on 07-11-2024 RBC (Bld) [#/Vol] 4.29 10*6/uL Low 4.6-6.2 [facility] Screening total cholesterol/ high density lipoprotein (HDL) cholesterol ratioOrdered By: Luis Moulton on 07-11-2024 Cholesterol.total/Cho lesterol in HDL [Mass ratio] 2.16 {ratio} [facility] Serum creatinine measurement (mass/volume)Ordered By: Luis Moulton on 07-11-2024 Creatinine [Mass/Vol] 0.68 mg/dL Low 0.70-1.20 [facility] Serum globulin measurementOr dered By: Luis Moulton on 07-11-2024 Globulin (S) [Mass/Vol] 2.5 g/dL 2.2-4.2 [facility] Serum glucose measurement (m ass/volume)Ordered By: Luis Moulton on 07-11-2024 Glucose [Mass/Vol] 96 mg/dL 70-99 [facility] Serum or plasma alanine kim otransferase (ALT) measurementOrdered By: Luis Moulton on 07-11-2024 ALT [Catalytic activity/Vol] 117 U/L High <47 [facility] Serum or plasma albumin hannah urement (mass/volume)Ordered By: Luis Moulton on 07-11-2024 Albumin [Mass/Vol] 4.5 g/dL 3.5-5.0 [facility] Serum or plasma albumin/glob ulin mass ratioOrdered By: Luis Moulton on 07-11-2024 Albumin/Globulin [Mass ratio] 1.8 {ratio} 0.9-2.4 [facility] Serum or plasma alkaline altagracia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 506.0200, L501.9985, L501.9520, L501.5200, L300.3900, L3890.6006 ####[facility] [address] [place], [place], [id number] Magnesium (Unsp spec) [Mass/ Vol]Ordered By: Luis Moulton on 07-10-2024 Magnesium [Mass/Vol] 2.2 mg/dL 1.5-2.2 [facility] Mean corpuscular hemoglobin (MCH) determinationOrdered By: Reji Pepper on 07-10-2024 MCH (RBC) [Entitic mass] 31.7 pg 27.0-32.0 [facility] Mean corpuscular hemoglobin concentration (MCHC) determinationOrdered By: Reji Pepper on 07-10-2024 MCHC (RBC) [Mass/Vol] 36.0 g/dL 32-36 [facility] Mean platelet volume determi nationOrdered By: Reji Pepper on 07-10-2024 Platelet mean volume (Bld) [Entitic vol] 10.1 fL 6.2-12.0 [facility] Methadone, urineOrdered By: Reji Pepper on 07-10-2024 Urine Methadone Screen Negative < 300 ng/mL [facility] Monocyte percentageOrdered B y: Reji Pepper on 07-10-2024 Monocytes/100 WBC (Bld) 13.5 % High 0-10 [facility] Neutrophil percentageOrdered By: Reji Pepper on 07-10-2024 Neutrophils/100 WBC (Bld) 44.5 % Low 47-70 [facility] No Panel InformationOrdered By: Luis Moulton on 07-10-2024 HIV (1&2) Antibody Non-Reactive Nonreactive [facility] Comment on above: Non-ReactiveReactive Repeatedly reactive samples must be confirmed according to CDC recommended confirmatory algorithms. The subresults for either HIVAG or AHIV can be used as an aid in the selection of the confirmation algorithm for reactive samples.Send out specimens with Reactive results to [facility] for confirmation.Order the HIV antibody detection and differentiation: #[id number] No Panel InformationOrdered By: Reji Pepper on 07-10-2024 Urine Buprenorphine Qualitative Negative < 200 ng/mL [facility] Urine Oxycodone Screen Negative < 100 ng/mL [facility] Nucleated red blood cell per centageOrdered By: Reji Pepper on 07-10-2024 Nucleated RBC/100 WBC (Bld) [Ratio] 0 % 0-5 [facility] Platelet countOrdered By: Fredy Pepper on 07-10-2024 Platelets (Bld) [#/Vol] 94 10*3/uL Low 150-450 [facility] Potassium (Unsp spec) [Mass/ Vol]Ordered By: Reji Pepper on 07-10-2024 Potassium [Moles/Vol] 3.5 mmol/L 3.3-5.1 [facility] Prothrombin Time w/INRon INR Coag (PPP) [Relative time] 1.0 {INR} Normal [facility] Comment on above: Performed By: #### L 506.0200, L501.9985, L501.9520, L501.5200, L300.3900, L3890.6006 ####[facility] [address] [place], [address] PT Coag (PPP) [Time] 12.9 s Normal 11.7-14.9 [facility] Comment on above: Performed By: #### L 506.0200, L501.9985, L501.9520, L501.5200, L300.3900, L3890.6006 ####[facility] [address] [place], [address] Prothrombin timeOrdered By: Luis Moulton on 07-10-2024 PT Coag (PPP) [Time] 12.9 s 11.7-14.9 [facility] Quantitative urine opiates m easurementOrdered By: Reji Pepper on 07-10-2024 Opiates Ql (U) Negative < 300 ng/mL [facility] RBC Auto (Bld) [#/Vol]Ordere d By: Reji Pepper on 07-10-2024 RBC (Bld) [#/Vol] 4.35 10*6/uL Low 4.6-6.2 [facility] Serum creatinine measurement (mass/volume)Ordered By: Reji Pepper on 07-10-2024 Creatinine [Mass/Vol] 0.71 mg/dL 0.70-1.20 [facility] Serum globulin measurementOr dered By: Reji Pepper on 07-10-2024 Globulin (S) [Mass/Vol] 2.7 g/dL 2.2-4.2 [facility] Serum glucose measurement (m ass/volume)Ordered By: Reji Pepper on 07-10-2024 Glucose [Mass/Vol] 98 mg/dL 70-99 [facility] Serum or plasma alanine ikm otransferase (ALT) measurementOrdered By: Reji Pepper on 07-10-2024 ALT [Catalytic activity/Vol] 133 U/L High <47 [facility] Serum or plasma albumin hannah urement (mass/volume)Ordered By: Reji Pepper on 07-10-2024 Albumin [Mass/Vol] 4.9 g/dL 3.5-5.0 [facility] Serum or plasma albumin/glob ulin mass ratioOrdered By: Reji Pepper on 07-10-2024 Albumin/Globulin [Mass ratio] 1.8 {ratio} 0.9-2.4 [facility] Serum or plasma alkaline altagracia sphatase measurementOrdered By: Reji Pepper on 07-10-2024 ALP [Catalytic activity/Vol] 80 U/L 40-129 [facility] Serum or plasma calcium hannah urement (mass/volume)Ordered By: Reji Pepper on 07-10-2024 Calcium [Mass/Vol] 8.8 mg/dL 7.6-11.0 [facility] Serum or plasma urea nitroge n measurement (mass/volume)Ordered By: Reji Pepper on 07-10-2024 Urea nitrogen [Mass/Vol] 3 mg/dL Low 4-19 [facility] Sodium levelOrdered By: Reji Pepper on 07-10-2024 Sodium [Moles/Vol] 134 mmol/L 133-145 [facility] TSH DL <= 0.005 mIU/L QnOrde red By: Luis Moulton on 07-10-2024 Thyroid Stimulating Hormone (TSH) 2.110 uIU/mL 0.300-4.200 [facility] Thyroid Stim Hormone (TSH)on 07-10-2024 TSH 2.110 uIU/mL Normal 0.300-4.200 [facility] Comment on above: Performed By: #### L 506.0200, L501.9985, L501.9520, L501.5200, L300.3900, L3890.6006 ####[facility] [address] [place], [address] Total proteinOrdered By: Lyric Pepper on 07-10-2024 Protein [Mass/Vol] 7.6 g/dL 5.9-8.4 [facility] Urine Drug Screen (VISTA)on 07-10-2024 AMPHETAMINES Negative Normal <1000 ng/mL [facility] Comment on above: Performed By: #### L 100.0100, L501.9100, L505.5000, L500.4050 ####[facility] [address] [place], [address] BARBITIURATES Negative Normal < 200 ng/mL [facility] Comment on above: Performed By: #### L 100.0100, L501.9100, L505.5000, L500.4050 ####[facility] [address] [place], [address] BENZODIAZIPINE Negative Normal < 200 ng/mL [facility] Comment on above: Performed By: #### L 100.0100, L501.9100, L505.5000, L500.4050 ####[facility] [address] [place], [address] BUP Ur Drug Scr Negative Normal < 200 ng/mL [facility] Comment on above: Performed By: #### L 100.0100, L501.9100, L505.5000, L500.4050 ####[facility] [address] [place], [address] COCAINE Negative Normal < 300 ng/mL [facility] Comment on above: Performed By: #### L 100.0100, L501.9100, L505.5000, L500.4050 ####[facility] [address] [place], [address] Fentanyl Negative Normal [facility] Comment on above: Performed By: #### L 100.0100, L501.9100, L505.5000, L500.4050 ####[facility] [address] [place], [address] METHADONE Negative Normal < 300 ng/mL [facility] Comment on above: Performed By: #### L 100.0100, L501.9100, L505.5000, L500.4050 ####[facility] [address] [place], [address] OPIATES Negative Normal < 300 ng/mL [facility] Comment on above: Performed By: #### L 100.0100, L501.9100, L505.5000, L500.4050 ####[facility] [address] [facility] [address] OXYCODONE Negative Normal < 100 ng/mL [facility] Comment on above: Performed By: #### L 100.0100, L501.9100, L505.5000, L500.4050 ####[facility] [address] [place], [address] PCP Negative Normal < 25 ng/mL [facility] Comment on above: Performed By: #### L 100.0100, L501.9100, L505.5000, L500.4050 ####[facility] [address] [place], [address] THC Positive Normal < 50 ng/mL [facility] Comment on above: Result Comment: If c onfirmation testing is needed, a separate order will be required to send out testing to the reference laboratory. Performed By: #### L 100.0100, L501.9100, L505.5000, L500.4050 ####[facility] [address] [place], [address] Urine benzodiazepine levelOr dered By: Reji Pepper on 07-10-2024 Benzodiazepines Ql (U) Negative < 200 ng/mL [facility] Urine cocaine levelOrdered B y: Reji Pepper on 07-10-2024 Cocaine Ql (U) Negative < 300 ng/mL [facility] Urine cfano-7-eaapamimzikzxf abinol (THC) measurementOrdered By: Reji Pepper on 07-10-2024 Cannabinoids Screen Ql (U) Positive < 50 ng/mL [facility] Comment on above: If confirmation test ing is needed, a separate order will be required to send out testing to the reference laboratory. Urine phencyclidine (PCP) de tectionOrdered By: Reji Pepper on 07-10-2024 Phencyclidine Ql (U) Negative < 25 ng/mL [facility] Vitamin B12on 07-10-2024 Cobalamin (Vitamin B12) [Mass/Vol] 572 pg/mL Normal 180-914 [facility] Comment on above: Performed By: #### L 503.0106 #### [facility] [address] [place] [address], [address] Vitamin B12 ser/plasOrdered By: Luis Moulton on 07-10-2024 Cobalamin (Vitamin B12) [Mass/Vol] 572 pg/mL 180-914 [facility] White blood cell (WBC) count Ordered By: Reji Pepper on 07-10-2024 WBC (Bld) [#/Vol] 3.1 10*3/uL Low 4.4-11.0 [facility] fentaNYL Screen Ql (U)Ordere d By: Reji Pepper on 07-10-2024 Urine Fentanyl Screen Negative [facility] DIAGNOSTIC UPPER ENDOSCOPYon 05-01-2023 [facility] Endoscopy Patient Name: Lon Burks Procedure Date: 05/01/2023 8:18 AM Date of : 1975 Admit Type: Outpatient Age: 47 Room: Endo Room 1 Gender: Male Note Status: Finalized Attending MD: Andrés Hagen MD, Procedure: Upper GI endoscopy Indications: Heartburn Providers: Andrés Hagen MD (Doctor) Referring MD: Andrés Hagen MD (Referring MD) Complications: No immediate complications. Medicines: Monitored Anesthesia Care Procedure: Pre-Anesthesia Assessment: - Prior to the procedure, a History and Physical was performed, and patient medications, allergies and sensitivities were reviewed. The patient's tolerance of previous anesthesia was reviewed. - The risks and benefits of the procedure and the sedation options and risks were discussed with the patient. All questions were answered and informed consent was obtained. - After reviewing the risks and benefits, the patient was deemed in satisfactory condition to undergo the procedure. After obtaining informed consent, the endoscope was passed under direct vision. Throughout the procedure, the patient's blood pressure, pulse, and oxygen saturations were monitored continuously. The Endoscope was introduced through the mouth, and advanced to the second part of duodenum. The upper GI endoscopy was accomplished without difficulty. The patient tolerated the procedure well. Findings: The examined duodenum was normal. The examined esophagus was normal. A small hiatal hernia was present. Patchy mildly erythematous mucosa without bleeding was found in the gastric antrum. Biopsies were taken with a cold forceps for histology. Impression: - Normal examined duodenum. - Normal esophagus. - Small hiatal hernia. - Erythematous mucosa in the antrum. Biopsied. Recommendation: - Await pathology results. Procedure Code(s): --- Professional --- 65873, Esophagogastroduodenoscop y, flexible, transoral; with biopsy, single or multiple Diagnosis Code(s): --- Professional --- K44.9, Diaphragmatic hernia without obstruction or gangrene K31.89, Other diseases of stomach and duodenum R12, Heartburn CPT copyright 2021 [employer]. All rights reserved. The codes documented in this report are preliminary and upon bread slicer machine review may be revised to meet current compliance requirements. MD Andrés Ramos MD 05/01/2023 10:07:26 AM This report has been signed electronically. Number of Addenda: 0 Note Initiated On: 05/01/2023 8:18 AM [place], [facility] INTERVENTIONAL COLONOSCOPYon 05-01-2023 [facility] Endoscopy Patient Name: Lon Burks Procedure Date: 05/01/2023 9:28 AM Date of : 1975 Admit Type: Outpatient Age: 47 Room: Endo Room 1 Gender: Male Note Status: Finalized Attending MD: Andrés Hagen MD, Procedure: Colonoscopy Indications: Rectal bleeding Providers: Andrés Hagen MD (Doctor) Referring MD: Andrés Hagen MD (Referring MD) Complications: No immediate complications. Medicines: Monitored Anesthesia Care Procedure: Pre-Anesthesia Assessment: - Prior to the procedure, a History and Physical was performed, and patient medications, allergies and sensitivities were reviewed. The patient's tolerance of previous anesthesia was reviewed. - The risks and benefits of the procedure and the sedation options and risks were discussed with the patient. All questions were answered and informed consent was obtained. - After reviewing the risks and benefits, the patient was deemed in satisfactory condition to undergo the procedure. After I obtained informed consent, the scope was passed under direct vision. Throughout the procedure, the patient's blood pressure, pulse, and oxygen saturations were monitored continuously. The Colonoscope was introduced through the anus and advanced to the cecum, identified by appendiceal orifice and ileocecal valve. The colonoscopy was performed without difficulty. The patient tolerated the procedure well. The quality of the bowel preparation was excellent. Findings: Hemorrhoids were found on perianal exam. The colon (entire examined portion) appeared normal. The endoscope was withdrawn. Three bands were successfully placed on all three columns. There was no bleeding during the procedure. Impression: - Hemorrhoids found on perianal exam. - The entire examined colon is normal. - Hemorrhoid banding performed. - No specimens collected. Recommendation: - Repeat colonoscopy in 5-10 years for screening purposes. Procedure Code(s): --- Professional --- 64181, Hemorrhoidectomy, internal, by rubber band ligation(s) 27611, Colonoscopy, flexible; diagnostic, including collection of specimen(s) by brushing or washing, when performed (separate procedure) Diagnosis Code(s): --- Professional --- K64.9, Unspecified hemorrhoids K62.5, Hemorrhage of anus and rectum CPT copyright 2021 [employer]. All rights reserved. The codes documented in this report are preliminary and upon bread slicer machine review may be revised to meet current compliance requirements. MD Andrés Ramos MD 05/01/2023 10:09:15 AM This report has been signed electronically. Number of Addenda: 0 Note Initiated On: 05/01/2023 9:28 AM LAB, [facility] No Panel Informationon 05-01 Radiology Study observation (narrative) [facility] Surgical Pathology Requeston 05-01-2023 SURGICAL SEE BELOW Normal [facility] Comment on above: Result Comment: [facility] LON BURKS [id number] Assoc. Page 1 of [address] [place] [address] PROC: 05/01/2023 [facility] RECV: 05/01/[address] [facility] RPTD: 05/02/2023 [place] [address] MRN: LOC: VO [id number] SEX: M ACCT: AGE: 47 Y [id number] : 1975 PATHOLOGY REPORT ATTN: [facility] PH[facility]ICIAN REQ: ANDRÉS HAGEN Clinical Information: RECTAL BLEEDING FINAL DIAGNOSIS: Gastric antrum biopsy: Mild reactive gastropathy, negative for inflammation or Helicobacter. Specimen: BIOPSY OF GASTRIC ANTRUM Gross Examination: The container is labeled Lon Burks, antral biopsy. Received in formalin are two bits of arreola tissue, each about 3 mm. 1 ns. SIO/DKR:v_alpal_i Microscopic Examination: Microscopic evaluation is performed. [id number] BABAR HENDERSON M.D., F.C.A.P. [facility]/ [facility] Printed on: 05/02/2023 [address] [place], [place] [address] Original print date: 05/02/2023 Performed By: #### 1 [id number] #### [address] [address] CBC, EDIF, PLATELETon 2023 Basophils/100 WBC (Bld) 0.6 % 0.0 - 3.0 % [facility] Eosinophils/100 WBC (Bld) 0.1 % 0.0 - 4.0 % [facility] Erythrocyte distribution width (RBC) [Ratio] 15.6 % High 11.5 - 14.5 % [facility] Hematocrit (Bld) [Volume fraction] 25.7 % Low 42.0 - 52.0 % [facility] Hemoglobin (Bld) [Mass/Vol] 8.9 g/dL Low 14.0 - 18.0 g/dL [facility] Interpretation and review of laboratory results Abnormal [facility] Lymphocytes/100 WBC (Bld) 9.3 % Low 17.6 - 49.6 % [facility] MCH (RBC) [Entitic mass] 32.3 pg High 28.0 - 32.0 pg [facility] MCHC (RBC) [Mass/Vol] 34.4 g/dL 33.0 - 37.0 g/dL [facility] MCV (RBC) [Entitic vol] 93.9 fL 80.0 - 94.0 fL [facility] Monocytes/100 WBC (Bld) 2.8 % Low 4.1 - 12.4 % [facility] Neutrophils/100 WBC (Bld) 87.2 % High 39.4 - 72.5 % [facility] Platelets (Bld) [#/Vol] 330 10*3/uL [facility] RBC (Bld) [#/Vol] 2.74 10*6/uL Low [facility] SCAN SLIDE NO NO [facility] WBC (Bld) [#/Vol] 7.9 10*3/uL [facility] COMPREHENSIVE METABOLIC PROF JEFF Hutchinson 04-21-2023 Albumin BCG dye [Mass/Vol] 3.9 g/dL 3.5 - 5.0 g/dL [facility] Albumin/Globulin [Mass ratio] 1.3 {ratio} 1.2 - 1.5 [facility] ALP [Catalytic activity/Vol] 51 U/L 38 - 126 U/L [facility] ALT No additional P-5'-P [Catalytic activity/Vol] 19 U/L 10 - 40 U/L [facility] Anion gap [Moles/Vol] 9.9 mmol/L Low [facility] AST [Catalytic activity/Vol] 27 U/L 10 - 42 U/L [facility] Bilirubin [Mass/Vol] 0.4 mg/dL 0.3 - 1 .2 mg/dL [facility] Calcium [Mass/Vol] 9.0 mg/dL 8.4 - 10. 2 mg/dL [facility] Chloride [Moles/Vol] 105 mmol/L [facility] CO2 [Moles/Vol] 27 mmol/L [facility] Creatinine [Mass/Vol] 0.8 mg/dL 0.4 - 1.1 mg/dL [facility] GFR/1.73 sq M.predicted MDRD (S/P/Bld) [Vol rate/Area] mL/min/{1.73_m2} [facility] Comment on above: Estimated Glomerular filtration Rate Reference Ranges: GFR, mL/min/1.73m2 >= 60 Adequate 30 - 59 Moderately decreased GFR 15 - 29 Severely decreased GFR <18 Kidney failure (or dialysis) GFR calculated using abbreviated MDRD formula. MDRD equation not suitable for patients who are under 18, have unstable creatinine concentrations Globulin (S) [Mass/Vol] 3.1 g/dL 2.9 - 3.3 g/dL [facility] Glucose [Mass/Vol] 132 mg/dL High 70 - 126 mg/dL [facility] Comment on above: Reference Range for FASTING patients is 70-100 mg/dL Interpretation and review of laboratory results Abnormal [facility] Potassium [Moles/Vol] 3.9 mmol/L [facility] Protein [Mass/Vol] 7.0 g/dL 6.4 - 8.3 g/dL [facility] Sodium [Moles/Vol] 138 mmol/L [place] [employer] [facility] Urea nitrogen [Mass/Vol] 8 mg/dL 7 - 22 mg/dL [facility] CT ABDOMEN/PELVIS WITHOUT CO NTRASTon 04-21-2023 CT ABDOMEN/PELVIS WITHOUT CONTRAST CT abdomen and pelvis without contrast INDICATION: Abdominal pain, acute, nonlocalized; RECTAL BLEEDING COMPARISON: None. TECHNIQUE: Contiguous axial CT images through the abdomen and pelvis. Coronal and sagittal reformations are submitted. This exam was performed according to our departmental dose-optimization program, which includes automated exposure control, adjustment of the mA and/or kV according to patient size and/or use of iterative reconstruction technique. FINDINGS: Limited evaluation of the solid abdominal organs and vasculature in the absence of intravenous contrast. FINDINGS: Lung bases: Clear. No effusions. Hepatobiliary: 1.1 cm low-density lesion in the right hepatic dome. Contracted gallbladder. Hepatomegaly. Spleen: Within normal limits. Pancreas: Within normal limits. Adrenals: Within normal limits. Kidneys: Mild bilateral hydroureteronephrosis. No nephrolithiasis. Bowel: No evidence of bowel obstruction. Appendix unremarkable. No colonic wall thickening. Mild jejunal wall thickening. Fluid in small bowel. Pelvic organs: Distended urinary bladder. Vessels: No abdominal aortic aneurysm. Bones: Multilevel degenerative changes of the spine. Right flank generator with lead at the right aspect of L5-S1 and in the right aspect of L3-L4. No lymphadenopathy. No free fluid. Small fat-containing umbilical hernia. IMPRESSION: 1. Exam is limited without contrast. 2. Mild jejunal wall thickening. Fluid in small bowel. Findings may represent enteritis. 3. Mild bilateral hydroureteronephrosis which may be related to bladder distention. Consider follow-up. 4. 1.1 cm low-density lesion in the right hepatic dome. Consider follow-up with liver protocol CT or MRI. 5. Further evaluation of GI bleed may be considered with nuclear medicine tagged RBC scan. Electronically signed by: Edna Johnson MD 04/21/2023 01:17 PM EST [facility] CT Abdomen and Pelvis WO con traston 04-21-2023 IMPRESSION: 1. Exam is limited without contrast. 2. Mild jejunal wall thickening. Fluid in small bowel. Findings may represent enteritis. 3. Mild bilateral hydroureteronephrosis which may be related to bladder distention. Consider follow-up. 4. 1.1 cm low-density lesion in the right hepatic dome. Consider follow-up with liver protocol CT or MRI. 5. Further evaluation of GI bleed may be considered with nuclear medicine tagged RBC scan. Electronically signed by: Edna Johnson MD 04/21/2023 01:[address] abdomen and pelvi s without contrast INDICATION: Abdominal pain, acute, nonlocalized; RECTAL BLEEDING COMPARISON: None. TECHNIQUE: Contiguous axial CT images through the abdomen and pelvis. Coronal and sagittal reformations are submitted. This exam was performed according to our departmental dose-optimization program, which includes automated exposure control, adjustment of the mA and/or kV according to patient size and/or use of iterative reconstruction technique. FINDINGS: Limited evaluation of the solid abdominal organs and vasculature in the absence of intravenous contrast. FINDINGS: Lung bases: Clear. No effusions. Hepatobiliary: 1.1 cm low-density lesion in the right hepatic dome. Contracted gallbladder. Hepatomegaly. Spleen: Within normal limits. Pancreas: Within normal limits. Adrenals: Within normal limits. Kidneys: Mild bilateral hydroureteronephrosis. No nephrolithiasis. Bowel: No evidence of bowel obstruction. Appendix unremarkable. No colonic wall thickening. Mild jejunal wall thickening. Fluid in small bowel. Pelvic organs: Distended urinary bladder. Vessels: No abdominal aortic aneurysm. Bones: Multilevel degenerative changes of the spine. Right flank generator with lead at the right aspect of L5-S1 and in the right aspect of L3-L4. No lymphadenopathy. No free fluid. Small fat-containing umbilical hernia. RADIOLOGY Edna Johnson MD - 04/21/2023 CT abdomen and pelvis without contrast INDICATION: Abdominal pain, acute, nonlocalized; RECTAL BLEEDING COMPARISON: None. TECHNIQUE: Contiguous axial CT images through the abdomen and pelvis. Coronal and sagittal reformations are submitted. This exam was performed according to our departmental dose-optimization program, which includes automated exposure control, adjustment of the mA and/or kV according to patient size and/or use of iterative reconstruction technique. FINDINGS: Limited evaluation of the solid abdominal organs and vasculature in the absence of intravenous contrast. FINDINGS: Lung bases: Clear. No effusions. Hepatobiliary: 1.1 cm low-density lesion in the right hepatic dome. Contracted gallbladder. Hepatomegaly. Spleen: Within normal limits. Pancreas: Within normal limits. Adrenals: Within normal limits. Kidneys: Mild bilateral hydroureteronephrosis. No nephrolithiasis. Bowel: No evidence of bowel obstruction. Appendix unremarkable. No colonic wall thickening. Mild jejunal wall thickening. Fluid in small bowel. Pelvic organs: Distended urinary bladder. Vessels: No abdominal aortic aneurysm. Bones: Multilevel degenerative changes of the spine. Right flank generator with lead at the right aspect of L5-S1 and in the right aspect of L3-L4. No lymphadenopathy. No free fluid. Small fat-containing umbilical hernia. IMPRESSION IMPRESSION: 1. Exam is limited without contrast. 2. Mild jejunal wall thickening. Fluid in small bowel. Findings may represent enteritis. 3. Mild bilateral hydroureteronephrosis which may be related to bladder distention. Consider follow-up. 4. 1.1 cm low-density lesion in the right hepatic dome. Consider follow-up with liver protocol CT or MRI. 5. Further evaluation of GI bleed may be considered with nuclear medicine tagged RBC scan. Electronically signed by: Edna Johnson MD 04/21/2023 01:17 PM EST [facility] Work Phone: Radiology Study observation (narrative) [facility] Phone: CT Abdomen and Pelvis WO con trastOrdered By: Edna Johnson on 04-21-2023 [facility] Phone: Complete Blood Counton 04-21 Basophils/100 WBC (Bld) 0.6 % Normal 0.0-3.0 [facility] Comment on above: Performed By: #### 1 390884, 5464808, 3061361, 7196774, 7049798 #### [facility] [address] [place] [address] Eosinophils/100 WBC (Bld) 0.1 % Normal 0.0-4.0 [facility] Comment on above: Performed By: #### 1 585149, 0629137, 5085054, 8662609, 4651764 #### [facility] [address] [place] [address] Erythrocyte distribution width (RBC) [Ratio] 15.6 % High 11.5-14.5 [facility] Comment on above: Performed By: #### 1 297712, 3470168, 0390007, 0413651, 7370128 #### [facility] [address] [place] [address] Hematocrit (Bld) [Volume fraction] 25.7 % Low 42.0-52.0 [facility] Comment on above: Performed By: #### 1 095449, 4388755, 3619920, 5915424, 6023729 #### [facility] [address] [place] [address] Hemoglobin (Bld) [Mass/Vol] 8.9 g/dL Low 14.0-18.0 [facility] Comment on above: Performed By: #### 1 183135, 1178607, 7271845, 0162325, 4946522 #### [facility] [address] [place] [address] Lymphocytes/100 WBC (Bld) 9.3 % Low 17.6-49.6 [facility] Comment on above: Performed By: #### 1 603971, 4630852, 1323185, 7084563, 8818061 #### [facility] [address] [place] [address] MCH (RBC) [Entitic mass] 32.3 pg High 28.0-32.0 [facility] Comment on above: Performed By: #### 1 616356, 6139672, 4634399, 9104418, 5913501 #### [facility] [address] [place] [address] MCHC (RBC) [Mass/Vol] 34.4 g/dL Normal 33.0-37.0 [facility] Comment on above: Performed By: #### 1 266350, 5035965, 6031818, 9966992, 8032018 #### [facility] [address] [place] [address] MCV (RBC) [Entitic vol] 93.9 fL Normal 80.0-94.0 [facility] Comment on above: Performed By: #### 1 685879, 0336844, 9716873, 0045135, 3307209 #### [facility] [address] [place] [address] Monocytes/100 WBC (Bld) 2.8 % Low 4.1-12.4 [facility] Comment on above: Performed By: #### 1 330556, 2099392, 5655706, 8423130, 5120698 #### [facility] [address] [place] [address] Neutrophils/100 WBC (Bld) 87.2 % High 39.4-72.5 [facility] Comment on above: Performed By: #### 1 149704, 2020011, 6579674, 0379927, 5365860 #### [facility] [address] [place] [address] PLT 330 thou/cumm Normal 130-400 [facility] Comment on above: Performed By: #### 1 356445, 4871866, 4525568, 2197735, 5706158 #### [facility] [address] [place] [address] RBC 2.74 mil/cumm Low 4.70-6.10 [facility] Comment on above: Performed By: #### 1 772311, 3446489, 0111276, 6685881, 7594274 #### [facility] [address] [place] [address] SCAN NO Normal NO [facility] Comment on above: Performed By: #### 1 404481, 4734553, 9319540, 3540290, 8422900 #### [facility] [address] [place] [address] WBC 7.9 thou/cumm Normal 4.8-10.8 [facility] Comment on above: Performed By: #### 1 313486, 9181990, 1671799, 8898378, 0193912 #### [facility] [address] [place] [address] Comprehensive Metabolic Prof jeff Hutchinson 04-21-2023 Albumin [Mass/Vol] 3.9 g/dL Normal 3.5-5.0 [facility] Comment on above: Performed By: #### 1 318817, 7871080, 6341637, 8416194, 1627356 #### [facility] [address] [place] [id number] Albumin/Globulin [Mass ratio] 1.3 {ratio} Normal 1.2-1.5 [facility] Comment on above: Performed By: #### 1 149259, 6140319, 8886336, 5007505, 5883760 #### [facility] [address] [place] [address] ALP [Catalytic activity/Vol] 51 U/L Normal 38-126 [facility] Comment on above: Performed By: #### 1 864755, 4785442, 8290466, 7935985, 4118215 #### [facility] [address] [place] [address] ALT [Catalytic activity/Vol] 19 U/L Normal 10-40 [facility] Comment on above: Performed By: #### 1 743103, 8990790, 5250760, 0047159, 4982929 #### [facility] [address] [place] [address] Anion gap [Moles/Vol] 9.9 mmol/L Low 10.0-20.0 [facility] Comment on above: Performed By: #### 1 206087, 9334122, 6497116, 8723952, 7068561 #### [facility] [address] [place] [address] AST [Catalytic activity/Vol] 27 U/L Normal 10-42 [facility] Comment on above: Performed By: #### 1 290709, 5496326, 9651645, 7740722, 2721266 #### [facility] [address] [place] [address] BILI 0.4 mg/dL Normal 0.3-1.2 [facility] Comment on above: Performed By: #### 1 660732, 3340574, 7075288, 0608178, 8758627 #### [facility] [address] [place] [address] Calcium [Mass/Vol] 9.0 mg/dL Normal 8.4-10.2 [facility] Comment on above: Performed By: #### 1 451752, 0866418, 7060122, 6957171, 0522763 #### [facility] [address] [place] [address] Chloride [Moles/Vol] 105 mmol/L Normal 98-107 [facility] Comment on above: Performed By: #### 1 152466, 4594900, 8746426, 1461231, 3199096 #### [facility] [address] [place] [address] CO2 [Moles/Vol] 27 mmol/L Normal 22-31 [facility] Comment on above: Performed By: #### 1 395266, 2828272, 1788043, 0329392, 3689653 #### [facility] [address] [place] [address] Creatinine [Mass/Vol] 0.8 mg/dL Normal 0.4-1.1 [facility] Comment on above: Performed By: #### 1 653353, 8475700, 9782824, 2498950, 6735328 #### [facility] [address] [place] [address] GFR/1.73 sq M.predicted among non-blacks MDRD (S/P/Bld) [Vol rate/Area] mL/min/{1.73_m2} Normal [facility] Comment on above: Result Comment: Mallorie mated Glomerular filtration Rate Reference Ranges: GFR, mL/min/1.73m2 >= 60 Adequate 30 - 59 Moderately decreased GFR 15 - 29 Severely decreased GFR <18 Kidney failure (or dialysis) GFR calculated using abbreviated MDRD formula. MDRD equation not suitable for patients who are under 18, have unstable creatinine concentrations Performed By: #### 1 376725, 4586027, 5988056, 4414989, 0554633 #### [facility] [address] [place] [id number] Globulin (S) [Mass/Vol] 3.1 g/dL Normal 2.9-3.3 [facility] Comment on above: Performed By: #### 1 335435, 6847623, 9914635, 1812654, 6147437 #### [facility] [address] [place] [address] Glucose [Mass/Vol] 132 mg/dL High 70-126 [facility] Comment on above: Result Comment: Refe rence Range for FASTING patients is 70-100 mg/dL Performed By: #### 1 028238, 9722594, 6935815, 4708287, 7790164 #### [facility] [address] [place] [address] Potassium [Moles/Vol] 3.9 mmol/L Normal 3.5-5.1 [facility] Comment on above: Performed By: #### 1 443965, 7954778, 7807324, 3784535, 8707071 #### [facility] [address] [place] [address] Protein [Mass/Vol] 7.0 g/dL Normal 6.4-8.3 [facility] Comment on above: Performed By: #### 1 039822, 4625720, 5570887, 8619927, 3815062 #### [facility] [address] [place] [address] Sodium [Moles/Vol] 138 mmol/L Normal 136-145 [facility] Comment on above: Performed By: #### 1 561599, 7203771, 1550520, 9681224, 5462182 #### [facility] [address] [place] [address] Urea nitrogen [Mass/Vol] 8 mg/dL Normal 7-22 [facility] Comment on above: Performed By: #### 1 797655, 1301458, 7093612, 1712954, 2201860 #### [facility] [address] [place] [address] LIPASEon 04-21-2023 Lipase [Catalytic activity/Vol] 45 U/L 22 - 51 U/L [facility] Lipaseon 04-21-2023 LIP 45 U/L Normal 22-51 [facility] Comment on above: Performed By: #### 1 517222, 6139804, 4272333, 1300746, 0630940 #### [facility] [address] [place] [address] No Panel Informationon 04-21 [facility] PROTIME-INRon 04-21-2023 INR Coag (PPP) [Relative time] 0.9 {INR} 0.8 - 1.2 [facility] Comment on above: INR: ------INDICATION INR Ref Range DVT, PE, AF, AMI, tissue heart valve 2.0 - 3.0 Mechanical prosthetic valves 2.5 - 3.5 PT Coag (PPP) [Time] 9.9 [facility] Prothrombin Time (CA 620)on 04-21-2023 INR 620 0.9 Normal 0.8-1.2 [facility] Comment on above: Result Comment: INR: ------INDICATION INR Ref Range DVT, PE, AF, AMI, tissue heart valve 2.0 - 3.0 Mechanical prosthetic valves 2.5 - 3.5 Performed By: #### 1 225392, 6440717, 1053512, 8247032, 4150898 #### [facility] [address] [place] [address] PT 620 9.9 sec Normal 8.7-12.1 [facility] Comment on above: Performed By: #### 1 905188, 2669873, 6373540, 7615344, 2501425 #### [facility] [address] [place] [address] TYPE AND SCREEN - POSSIBLE T RANSFUSIONon 04-21-2023 ABO group Nom (Bld) A [facility] Indirect antiglobulin test.IgG specific reagent Ql Negative NEGATIVE [facility] Rh Nom (Bld) Positive [facility] TYPE & SCREEN EXPIRATION DATE 04/28/2023 [facility] TYPE AND SCREEN COMPLETED [facility] Type and Screenon 04-21-[address] [facility] Comment on above: Performed By: #### 1 997043, 8634946, 0204037, 9356876, 9728783 #### [facility] [address] [place] [address] ABS Negative Normal NEGATIVE [facility] Comment on above: Performed By: #### 1 936134, 8626903, 4195566, 3369050, 1491808 #### [facility] [address] [place] [address] Rh Nom (Bld) Positive [facility] Comment on above: Performed By: #### 1 066475, 2722813, 4329841, 4964224, 1228050 #### [facility] [address] [place] [address] TTS COMPLETED [facility] Comment on above: Performed By: #### 1 166206, 0794976, 0630385, 2325989, 4646251 #### [facility] [address] [place] [address] TTSEXP 04/28/2023 [facility] Comment on above: Performed By: #### 1 732739, 2651504, 6236329, 4765150, 1104522 #### [facility] [address] [place] [address] CBC panel Auto (Bld)on 03-05 Erythrocyte distribution width (RBC) [Entitic vol] 14.6 % 11.6 - 14.8 % [facility] Hematocrit (Bld) [Volume fraction] 40.4 % Low 41.0 - 53.0 % [facility] Hemoglobin (Bld) [Mass/Vol] 13.2 g/dL Low 13.5 - 17.5 g/dL [facility] Interpretation and review of laboratory results Abnormal [facility] MCH (RBC) [Entitic mass] 30.6 pg 26.0 - 34.0 pg [facility] MCHC (RBC) [Mass/Vol] 32.7 g/dL 31.0 - 37.0 g/dL [facility] MCV (RBC) [Entitic vol] 93.5 fL 80.0 - 100.0 fL [facility] Nucleated RBC (Bld) [#/Vol] 0.00 10*3/uL [facility] Nucleated RBC/100 WBC (Bld) [Ratio] 0.0 % [facility] Platelet mean volume (Bld) [Entitic vol] 10.3 fL 9.4 - 12.4 fL [facility] Platelets (Bld) [#/Vol] 82 10*3/uL Low [facility] RBC (Bld) [#/Vol] 4.32 10*6/uL Low [facility] WBC (Bld) [#/Vol] 9.61 10*3/uL [facility] Clostridium difficile Testin cha 03-05-2023 C. difficile Interpretation Negative [facility] Specimen Acceptability Acceptable [facility] Comprehensive metabolic 2000 panelon 03-05-2023 Albumin [Mass/Vol] 3.3 g/dL 3.2 - 5.2 g/dL [facility] ALP [Catalytic activity/Vol] 102 U/L 40 - 150 U/L [facility] ALT [Catalytic activity/Vol] 51 U/L 14 - 65 U/L [facility] Anion gap [Moles/Vol] 10 mmol/L 10 - 2 0 mmol/L [facility] AST [Catalytic activity/Vol] 55 U/L High 0-50 U/L [facility] Bilirubin [Mass/Vol] 0.8 mg/dL 0.0 - 1 .3 mg/dL [facility] Calcium [Mass/Vol] 8.6 mg/dL 8.4 - 10. 2 mg/dL [facility] Chloride [Moles/Vol] 105 mmol/L 98 - 10 8 mmol/L [facility] Creatinine [Mass/Vol] 0.75 mg/dL 0.50 - 1.30 mg/dL [facility] GFR/1.73 sq M.predicted CKD-EPI (S/P/Bld) [Vol rate/Area] 113 - PINF [facility] Comment on above: Estimated GFR was ca lculated using the 2020 CKD-EPI creatinine equation. Glucose [Mass/Vol] 101 mg/dL High 65 - 99 mg/dL [facility] HCO3 [Moles/Vol] 29 mmol/L 21 - 32 mmol/L [facility] Interpretation and review of laboratory results Abnormal [facility] Potassium [Moles/Vol] 3.7 mmol/L 3.5 - 5.1 mmol/L [facility] Protein [Mass/Vol] 7.4 g/dL 6.0 - 8.0 g/dL [facility] Sodium [Moles/Vol] 140 mmol/L 135 - 145 mmol/L [facility] Urea nitrogen [Mass/Vol] 5 mg/dL Low 8 - 25 mg/dL [facility] Urea nitrogen/Creatinine [Mass ratio] 6.7 mg/mg Low 10.0 - 20.0 [facility] Laborator y Services has implemented the eGFR calculation approach that does not have a coefficient for race that conforms to the NKF-ASN Task Force Recommendations. [facility] Respiratory pathogens DNA an d RNA panel LASHANDA+non-probe (Nph)Ordered By: Safia Ko on 03-05-2023 Adenovirus DNA LASHANDA+non-probe Ql (Nph) Not detected Not Detected [facility] B. parapertussis [id number] DNA LASHANDA+non-probe Ql (Nph) Not detected Not Detected [facility] B. pertussis toxin promoter region LASHANDA+non-probe Ql (Nph) Not detected Not Detected [facility] C. pneumoniae DNA LASHANDA+non-probe Ql (Nph) Not detected Not Detected [facility] FLUAV RNA LASHANDA+non-probe Ql (Nph) Not detected Not Detected [facility] FLUBV RNA LASHANDA+non-probe Ql (Nph) Not detected Not Detected [facility] HCoV 229E RNA LASHANDA+non-probe Ql (Nph) Not detected Not Detected [facility] HCoV HKU1 RNA LAHSANDA+non-probe Ql (Nph) Not detected Not Detected [facility] HCoV NL63 RNA LASHANDA+non-probe Ql (Nph) Not detected Not Detected [facility] HCoV OC43 RNA LASHANDA+non-probe Ql (Nph) Not detected Not Detected [facility] hMPV RNA LASHANDA+non-probe Ql (Nph) Not detected Not Detected [facility] Interpretation and review of laboratory results Normal [facility] M. pneumoniae DNA LASHANDA+non-probe Ql (Nph) Not detected Not Detected [facility] Parainfluenza virus 1 RNA LASHANDA+non-probe Ql (Nph) Not detected Not Detected [facility] Parainfluenza virus 2 RNA LASHANDA+non-probe Ql (Nph) Not detected Not Detected [facility] Parainfluenza virus 3 RNA LASHANDA+non-probe Ql (Nph) Not detected Not Detected [facility] Parainfluenza virus 4 RNA LASHANDA+non-probe Ql (Nph) Not detected Not Detected [facility] Rhinovirus+Enteroviru s RNA LASHANDA+non-probe Ql (Nph) Not detected Not Detected [facility] RSV RNA LASHANDA+non-probe Ql (Nph) Not detected Not Detected [facility] SARS-CoV-2 (COVID-19) RNA LASHANDA+non-probe Ql (Nph) Not detected Not Detected [facility] Alcohol, Medicalon Ethanol [Mass/Vol] 303.40 mg/dL High NINF - 10 .00 mg/dL [facility] Basic metabolic 2000 panelon 03-04-2023 Anion gap [Moles/Vol] 16 mmol/L 10 - 2 0 mmol/L [facility] Calcium [Mass/Vol] 8.2 mg/dL Low 8.4 - 10. 2 mg/dL [facility] Chloride [Moles/Vol] 103 mmol/L 98 - 10 8 mmol/L [facility] Creatinine [Mass/Vol] 0.80 mg/dL 0.50 - 1.30 mg/dL [facility] GFR/1.73 sq M.predicted CKD-EPI (S/P/Bld) [Vol rate/Area] 111 - PINF [facility] Comment on above: Estimated GFR was ca lculated using the 2020 CKD-EPI creatinine equation. Glucose [Mass/Vol] 102 mg/dL High 65 - 99 mg/dL [facility] HCO3 [Moles/Vol] 25 mmol/L 21 - 32 mmol/L [facility] Interpretation and review of laboratory results Abnormal [facility] Potassium [Moles/Vol] 4.0 mmol/L 3.5 - 5.1 mmol/L [facility] Sodium [Moles/Vol] 140 mmol/L 135 - 145 mmol/L [facility] Urea nitrogen [Mass/Vol] 4 mg/dL Low 8 - 25 mg/dL [facility] Urea nitrogen/Creatinine [Mass ratio] 5.0 mg/mg Low 10.0 - 20.0 [facility] Laborator y Services has implemented the eGFR calculation approach that does not have a coefficient for race that conforms to the NKF-ASN Task Force Recommendations. [facility] CBC Auto Differentialon 02-15 Basophils (Bld) [#/Vol] 0.04 10*3/uL [facility] Basophils/100 WBC (Bld) 0.3 % [facility] Eosinophils (Bld) [#/Vol] 0.03 10*3/uL [facility] Eosinophils/100 WBC (Bld) 0.2 % [facility] Erythrocyte distribution width (RBC) [Entitic vol] 14.6 % 11.6 - 14.8 % [facility] Hematocrit (Bld) [Volume fraction] 43.0 % 41.0 - 53.0 % [facility] Hemoglobin (Bld) [Mass/Vol] 14.7 g/dL 13.5 - 17.5 g/dL [facility] Immature granulocytes (Bld) [#/Vol] 0.10 10*3/uL [facility] Immature granulocytes/100 WBC (Bld) 0.70 % [facility] Comment on above: The IG parameter is the percentage of metamyelocytes, myelocytes and promyelocytes. An immature granulocyte count (IG) of 1% or more suggests the possibility of infection, an IG count of 3% is very likely related to an infection. Interpretation and review of laboratory results Abnormal [facility] Lymphocytes (Bld) [#/Vol] 0.71 10*3/uL Low [facility] Lymphocytes/100 WBC (Bld) 5.0 % [facility] MCH (RBC) [Entitic mass] 31.1 pg 26.0 - 34.0 pg [facility] MCHC (RBC) [Mass/Vol] 34.2 g/dL 31.0 - 37.0 g/dL [facility] MCV (RBC) [Entitic vol] 91.1 fL 80.0 - 100.0 fL [facility] Monocytes (Bld) [#/Vol] 0.87 10*3/uL [facility] Monocytes/100 WBC (Bld) 6.1 % [facility] Neutrophils (Bld) [#/Vol] 12.51 10*3/uL High [facility] Neutrophils/100 WBC (Bld) 87.7 % [facility] Nucleated RBC (Bld) [#/Vol] 0.00 10*3/uL [facility] Nucleated RBC/100 WBC (Bld) [Ratio] 0.0 % [facility] Platelet mean volume (Bld) [Entitic vol] 9.7 fL 9.4 - 12.4 fL [facility] Platelets (Bld) [#/Vol] 105 10*3/uL Low [facility] RBC (Bld) [#/Vol] 4.72 10*6/uL [facility] ealth WBC (Bld) [#/Vol] 14.26 10*3/uL [facility] CT Abdomen and Pelvis W cont rast Monae 03-04-2023 1. No pulmonary embolism. 2. Left lower lobe pneumonia/aspiration and bilateral lower lobe endobronchial mucous plugging. 3. Hepatomegaly and hepatic steatosis. Workstation ID: [id number] [employer] [facility] EXAMINATION: CTA PULM ART AND CT ABD PELVIS WITH IV CONTRAST HISTORY: ORDERING SYSTEM PROVIDED HISTORY: Chest pain, shortness of breath, elevated D-dimer; trauma, TECHNOLOGIST PROVIDED HISTORY: Injury/Trauma Reason for exam: PT ARRIVES DUE TO CHEST PAIN THAT STARTED THIS MORNING. PT STATES HE FELL YESTERDAY AND TODAY DUE TO DIZZINESS. PT ALSO REPORT DRINKING 12 BEERS A DAY. PT ARRIVES WITH HEAVY TREMORS AND NAUSEA Encounter Type: Initial Mechanism of injury: PT ARRIVES DUE TO CHEST PAIN THAT STARTED THIS MORNING. PT STATES HE FELL YESTERDAY AND TODAY DUE TO DIZZINESS. PT ALSO REPORT DRINKING 12 BEERS A DAY. PT ARRIVES WITH HEAVY TREMORS AND NAUSEA ORDERING SYSTEM PROVIDED DIAGNOSIS CODES: COMPARISON: CT abdomen pelvis 11/07/2018 TECHNIQUE: CT angiography of the pulmonary arteries following the administration of intravenous contrast. Coronal and sagittal MIP images were performed. CT of the abdomen pelvis was performed following the administration of intravenous contrast. Multiplanar reconstructions were performed. Dose reduction techniques were achieved by using automated exposure control and/or adjustment of mA and/or kV according to patient size and/or use of iterative reconstruction technique. CONTRAST: IOPAMIDOL 370 MG IODINE/ML (76 %) INTRAVENOUS SOLUTION - 75 mL, CHEST GREAT VESSELS: Adequate opacification of the pulmonary arteries. No pulmonary embolism identified. Normal caliber main pulmonary artery. Nonaneurysmal thoracic aorta. No aortic dissection. LYMPH NODES AND MEDIASTINUM: No adenopathy. Mild long segment circumferential wall thickening of the esophagus. HEART AND PERICARDIUM: Normal sized heart. No coronary artery calcifications. No pericardial effusion. AIRWAYS, LUNGS AND PLEURA: Bilateral lower lobe endobronchial mucous plugging, left worse than right. Large area of consolidative and ground-glass opacities in the left lower lobe. No suspicious pulmonary nodules. No pleural effusion or pneumothorax. ABDOMEN AND PELVIS LIVER: Enlarged liver with diffuse fatty infiltration. BILIARY SYSTEM: Normal gallbladder. No biliary ductal dilation. PANCREAS: Normal. SPLEEN: Normal. ADRENAL GLANDS: Normal. URINARY SYSTEM: Right renal 1.0 cm cyst. Normal left kidney. No hydronephrosis. Circumferential wall thickening of the bladder, likely sequelae of chronic outlet obstruction or cystitis. REPRODUCTIVE ORGANS: Unremarkable. GASTROINTESTINAL TRACT: Normal caliber bowel. No bowel wall thickening or inflammation. Normal appendix. VESSELS: Nonaneurysmal abdominal aorta. Patent abdominal vasculature. LYMPH NODES: No adenopathy. PERITONEUM: No ascites or pneumoperitoneum. MSK SOFT TISSUES: Unremarkable. BONES: No acute abnormality or suspicious lesion. Old right-sided rib fractures. Lumbar pain pump in place. [employer] Zena Knox MD - 03/04/2023 EXAMINATION: CTA PULM ART AND CT ABD PELVIS WITH IV CONTRAST HISTORY: ORDERING SYSTEM PROVIDED HISTORY: Chest pain, shortness of breath, elevated D-dimer; trauma, TECHNOLOGIST PROVIDED HISTORY: Injury/Trauma Reason for exam: PT ARRIVES DUE TO CHEST PAIN THAT STARTED THIS MORNING. PT STATES HE FELL YESTERDAY AND TODAY DUE TO DIZZINESS. PT ALSO REPORT DRINKING 12 BEERS A DAY. PT ARRIVES WITH HEAVY TREMORS AND NAUSEA Encounter Type: Initial Mechanism of injury: PT ARRIVES DUE TO CHEST PAIN THAT STARTED THIS MORNING. PT STATES HE FELL YESTERDAY AND TODAY DUE TO DIZZINESS. PT ALSO REPORT DRINKING 12 BEERS A DAY. PT ARRIVES WITH HEAVY TREMORS AND NAUSEA ORDERING SYSTEM PROVIDED DIAGNOSIS CODES: COMPARISON: CT abdomen pelvis 11/07/2018 TECHNIQUE: CT angiography of the pulmonary arteries following the administration of intravenous contrast. Coronal and sagittal MIP images were performed. CT of the abdomen pelvis was performed following the administration of intravenous contrast. Multiplanar reconstructions were performed. Dose reduction techniques were achieved by using automated exposure control and/or adjustment of mA and/or kV according to patient size and/or use of iterative reconstruction technique. CONTRAST: IOPAMIDOL 370 MG IODINE/ML (76 %) INTRAVENOUS SOLUTION - 75 mL, CHEST GREAT VESSELS: Adequate opacification of the pulmonary arteries. No pulmonary embolism identified. Normal caliber main pulmonary artery. Nonaneurysmal thoracic aorta. No aortic dissection. LYMPH NODES AND MEDIASTINUM: No adenopathy. Mild long segment circumferential wall thickening of the esophagus. HEART AND PERICARDIUM: Normal sized heart. No coronary artery calcifications. No pericardial effusion. AIRWAYS, LUNGS AND PLEURA: Bilateral lower lobe endobronchial mucous plugging, left worse than right. Large area of consolidative and ground-glass opacities in the left lower lobe. No suspicious pulmonary nodules. No pleural effusion or pneumothorax. ABDOMEN AND PELVIS LIVER: Enlarged liver with diffuse fatty infiltration. BILIARY SYSTEM: Normal gallbladder. No biliary ductal dilation. PANCREAS: Normal. SPLEEN: Normal. ADRENAL GLANDS: Normal. URINARY SYSTEM: Right renal 1.0 cm cyst. Normal left kidney. No hydronephrosis. Circumferential wall thickening of the bladder, likely sequelae of chronic outlet obstruction or cystitis. REPRODUCTIVE ORGANS: Unremarkable. GASTROINTESTINAL TRACT: Normal caliber bowel. No bowel wall thickening or inflammation. Normal appendix. VESSELS: Nonaneurysmal abdominal aorta. Patent abdominal vasculature. LYMPH NODES: No adenopathy. PERITONEUM: No ascites or pneumoperitoneum. MSK SOFT TISSUES: Unremarkable. BONES: No acute abnormality or suspicious lesion. Old right-sided rib fractures. Lumbar pain pump in place. IMPRESSION: 1. No pulmonary embolism. 2. Left lower lobe pneumonia/aspiration and bilateral lower lobe endobronchial mucous plugging. 3. Hepatomegaly and hepatic steatosis. Workstation ID: [id number] [facility] Radiology Study observation (narrative) [facility] CT Cervical spine WO contras ton 03-04-2023 Radiology Study observation (narrative) [facility] CT Head WO contraston 2022 Radiology Study observation (narrative) [facility] CT Lumbar spine by reconstru ctionon 03-04-2023 Radiology Study observation (narrative) [facility] CT Thoracic spine by reconst ructionon 03-04-2023 Radiology Study observation (narrative) [facility] Critical Careon 03-04-2023 Diaz Moreno MD 03/04/2023 3:27 PM Critical Care Performed by: Diaz Moreno MD Authorized by: Diaz Moreno MD Total critical care time: 40 minutes Critical care time was exclusive of separately billable procedures and treating other patients. Critical care was necessary to treat or prevent imminent or life-threatening deterioration of the following conditions: PEARL MAKER failure or compromise, respiratory failure and toxidrome. Critical care was time spent personally by me on the following activities: development of treatment plan with patient or surrogate, discussions with consultants, evaluation of patient's response to treatment, examination of patient, obtaining history from patient or surrogate, ordering and performing treatments and interventions, ordering and review of laboratory studies, ordering and review of radiographic studies, pulse oximetry, re-evaluation of patient's condition and review of old charts. [facility] D-Dimer, QuantitativeOrdered By: Oliver Cavanaugh on 03-04-2023 Fibrin D-dimer FEU (PPP) [Mass/Vol] 2.35 High [facility] Interpretation and review of laboratory results Abnormal [facility] A D-dimer concentrat ion of <0.5 micrograms per milliliter FEU is considered a low probability for pulmonary embolus (PE) and deep venous thrombosis (DVT). Results of this test should always be interpreted in conjunction with the patient's medical history,clinical presentation, and other findings. Clinical diagnosis should not be based on the results of the D-dimer alone. [facility] EKGon 03-04-2023 [facility] EKG 12-leadon 03-04-2023 Atrial Rate 93 BPM [facility] P [place] 49 degrees [facility] P-R Interval 158 ms [facility] Q-T Interval 358 ms [facility] QRS Duration 90 ms [facility] QTC Calculation (Bezet) 445 ms [facility] R [place] 97 degrees [facility] T [place] 73 degrees [facility] Ventricular Rate 93 BPM [facility] Normal sinus rhythm Rightward axis Borderline ECG ECG Cart Interpretation see physician note for interpretation. Confirmed by Maria Esther Mota ([id number]) on 03/04/2023 12:01:55 PM MUSE [facility] Ethanol [Mass/Vol]on Interpretation and review of laboratory results Abnormal [facility] Hepatic function 2000 panelo n 03-04-2023 Albumin [Mass/Vol] 4.1 g/dL 3.2 - 5.2 g/dL [facility] ALP [Catalytic activity/Vol] 123 U/L 40 - 150 U/L [facility] ALT [Catalytic activity/Vol] 77 U/L High 14 - 65 U/L [facility] AST [Catalytic activity/Vol] 115 U/L High 0-50 U/L [facility] Bilirubin [Mass/Vol] 0.5 mg/dL 0.0 - 1 .3 mg/dL [facility] Bilirubin.conjugated [Mass/Vol] 0.2 mg/dL 0.0 - 0.4 mg/dL [facility] Interpretation and review of laboratory results Abnormal [facility] Protein [Mass/Vol] 8.3 g/dL High 6.0 - 8.0 g/dL [facility] INR Coag (PPP) [Relative jada e]on 03-04-2023 Interpretation and review of laboratory results Normal [facility] PT Coag (PPP) [Time] 12.7 s [facility] During the induction phase of oral anticoagulation, the INR may not reflect the anticoagulation status of the patient. Therapeutic ranges for INR's are: Most clinical situations: INR 2.0-3.0 Mechanical Prosthetic Valve: INR 2.5-3.5 Critical: INR >5.0 [facility] Influenza virus A and B RNA and SARS-CoV-2 (COVID-19) N gene panel LASHANDA+probe (Resp)Ordered By: Rylie Yanes on 03-04-2023 FLUAV RNA LASHANDA+probe Ql (Unsp spec) Not detected Not Detected [facility] FLUBV RNA LASHANDA+probe Ql (Unsp spec) Not detected Not Detected [facility] Interpretation and review of laboratory results Normal [facility] SARS-CoV-2 (COVID-19) RNA LASHANDA+probe Ql (Resp) Not detected Not Detected [facility] This test was perfor med under the FDA's Emergency Use Authorization (EUA). Testing was performed using the Shikha Stevenson SARS-CoV-2 RT-PCR & Influenza A/B Nucleic Acid Test on the Stevenson [employer] System. This test has not been approved for use in asymptomatic patients and its performance in this patient population has not been evaluated. Negative results do not rule out the presence of SARS-CoV-2, influenza A, and/or influenza B. Fact sheets for the EUA can be found at the following links: For Healthcare Providers: https://www.fda.gov/media /360941/download For Patients: https://www.fda.gov/media /355358/download [facility] Legionella Antigen, UrineOrd ered By: Jayde Luong on 03-04-2023 Interpretation and review of laboratory results Normal [facility] L. pneumophila Ag Ql (U) Negative Negative for Legionella antigen [facility] Comment on above: COMMENT: Results may be affected if patient is on diuretics. INTERPRETATION OF RESULTS: Test detects Legionella pneumophilia serogroup 1 antigens in urine. Legionnaires disease cannot be ruled out since other serogroups and species may also cause disease. [facility] Lipaseon 03-04-2023 Lipase [Catalytic activity/Vol] 58 U/L 13-75 U/L [facility] Lipase [Catalytic activity/V ol]on 03-04-2023 Interpretation and review of laboratory results Normal [facility] Magnesium Levelon 03-04-2023 Magnesium [Mass/Vol] 2.0 mg/dL 1.6 - 2 .4 mg/dL [facility] Magnesium [Mass/Vol]on 03-04 Interpretation and review of laboratory results Normal [facility] No Panel Informationon 03-04 1. No acute intracranial process 2. No acute fracture or malalignment of the cervical, thoracic or lumbar spine. Workstation ID: [id number] [employer] EXAMINATION: CT HEAD OR BRAIN WITHOUT CONTRAST; CT CERVICAL SPINE WITHOUT CONTRAST; CT LUMBAR SPINE RECONSTRUCTED; CT THORACIC SPINE RECONSTRUCTED HISTORY: Lightheadedness, falls Injury/Trauma or Illness?:Injury/Trauma How long have you had these symptoms (acute/chronic)?:Acute Reason for exam?:PT ARRIVES DUE TO CHEST PAIN THAT STARTED THIS MORNING. PT STATES HE FELL YESTERDAY AND TODAY DUE TO DIZZINESS. PT ALSO REPORT DRINKING 12 BEERS A DAY. PT ARRIVES WITH HEAVY TREMORS AND NAUSEA Type of Exam?:Initial Mechanism of injury?:PT ARRIVES DUE TO CHEST PAIN THAT STARTED THIS MORNING. PT STATES HE FELL YESTERDAY AND TODAY DUE TO DIZZINESS. PT ALSO REPORT DRINKING 12 BEERS A DAY. PT ARRIVES WITH HEAVY TREMORS AND NAUSEA ; Falls Injury/Trauma or Illness?:Injury/Trauma How long have you had these symptoms (acute/chronic)?:Acute Reason for exam?:PT ARRIVES DUE TO CHEST PAIN THAT STARTED THIS MORNING. PT STATES HE FELL YESTERDAY AND TODAY DUE TO DIZZINESS. PT ALSO REPORT DRINKING 12 BEERS A DAY. PT ARRIVES WITH HEAVY TREMORS AND NAUSEA Type of Exam?:Initial Mechanism of injury?:PT ARRIVES DUE TO CHEST PAIN THAT STARTED THIS MORNING. PT STATES HE FELL YESTERDAY AND TODAY DUE TO DIZZINESS. PT ALSO REPORT DRINKING 12 BEERS A DAY. PT ARRIVES WITH HEAVY TREMORS AND NAUSEA ; Lightheadedness, falls; trauma Injury/Trauma or Illness?:Injury/Trauma How long have you had these symptoms (acute/chronic)?:Acute Reason for exam?:PT ARRIVES DUE TO CHEST PAIN THAT STARTED THIS MORNING. PT STATES HE FELL YESTERDAY AND TODAY DUE TO DIZZINESS. PT ALSO REPORT DRINKING 12 BEERS A DAY. PT ARRIVES WITH HEAVY TREMORS AND NAUSEA Type of Exam?:Initial Mechanism of injury?:PT ARRIVES DUE TO CHEST PAIN THAT STARTED THIS MORNING. PT STATES HE FELL YESTERDAY AND TODAY DUE TO DIZZINESS. PT ALSO REPORT DRINKING 12 BEERS A DAY. PT ARRIVES WITH HEAVY TREMORS AND NAUSEA COMPARISON: CT and cervical spine 05/22/2022; CT lumbar spine myelogram 05/04/2021, thoracic spine radiographs 02/21/2021 TECHNIQUE: Axial noncontrast CT imaging of the head and cervical spine was performed with coronal and sagittal reformats. Dose reduction techniques were achieved by using automated exposure control and/or adjustment of mA and/or kV according to patient size and/or use of iterative reconstruction technique. Reconstructed axial, coronal and sagittal imaging of the thoracic and lumbar spine was performed from dedicated CTA chest abdomen pelvis. Dose reduction techniques were utilized on the initial imaging. FINDINGS: CT head Calvarium/skull base: No evidence of acute fracture or destructive lesion.Mastoids and middle ears demonstrate no substantial mucosal disease. Paranasal sinuses:No air fluid levels. Brain: No acute intracranial hemorrhage. No acute large vascular territory infarct. No mass lesion or mass effect.No hydrocephalus. CT cervical, thoracic Alignment: No substantial subluxation. Vertebrae: No acute fracture. Vertebral body heights are maintained. Craniocervical junction: No focal abnormality. Degenerative changes: Cervical spine: The mild degenerative changes the cervical spine most prominent at C5-C6 with moderate disc height loss and posterior disc osteophyte complex with resulting mild to moderate canal stenosis. Multilevel uncovertebral arthropathy is present there is associated multilevel [id number] foraminal stenosis. Thoracic/lumbar spine: Similar sclerotic degenerative endplate change with associated Schmorl's nodes involving the lower thoracic and upper lumbar spine. Multilevel mild height loss with vacuum disc phenomena noted at L5-S1. Minimal multilevel disc bulges are present. There is no substantial canal or foraminal stenosis visible by CT. Next spinal stimulator leads are redemonstrated. Lumbar spine: Additional comments: Visualized soft tissues of the neck are unremarkable. For soft tissue findings related to the chest, pelvis please see the dedicated CT chest abdomen pelvis performed contemporaneously and reported separately. [employer] Bryanna Hill, DO - 03/04/2023 EXAMINATION: CT HEAD OR BRAIN WITHOUT CONTRAST; CT CERVICAL SPINE WITHOUT CONTRAST; CT LUMBAR SPINE RECONSTRUCTED; CT THORACIC SPINE RECONSTRUCTED HISTORY: Lightheadedness, falls Injury/Trauma or Illness?:Injury/Trauma How long have you had these symptoms (acute/chronic)?:Acute Reason for exam?:PT ARRIVES DUE TO CHEST PAIN THAT STARTED THIS MORNING. PT STATES HE FELL YESTERDAY AND TODAY DUE TO DIZZINESS. PT ALSO REPORT DRINKING 12 BEERS A DAY. PT ARRIVES WITH HEAVY TREMORS AND NAUSEA Type of Exam?:Initial Mechanism of injury?:PT ARRIVES DUE TO CHEST PAIN THAT STARTED THIS MORNING. PT STATES HE FELL YESTERDAY AND TODAY DUE TO DIZZINESS. PT ALSO REPORT DRINKING 12 BEERS A DAY. PT ARRIVES WITH HEAVY TREMORS AND NAUSEA ; Falls Injury/Trauma or Illness?:Injury/Trauma How long have you had these symptoms (acute/chronic)?:Acute Reason for exam?:PT ARRIVES DUE TO CHEST PAIN THAT STARTED THIS MORNING. PT STATES HE FELL YESTERDAY AND TODAY DUE TO DIZZINESS. PT ALSO REPORT DRINKING 12 BEERS A DAY. PT ARRIVES WITH HEAVY TREMORS AND NAUSEA Type of Exam?:Initial Mechanism of injury?:PT ARRIVES DUE TO CHEST PAIN THAT STARTED THIS MORNING. PT STATES HE FELL YESTERDAY AND TODAY DUE TO DIZZINESS. PT ALSO REPORT DRINKING 12 BEERS A DAY. PT ARRIVES WITH HEAVY TREMORS AND NAUSEA ; Lightheadedness, falls; trauma Injury/Trauma or Illness?:Injury/Trauma How long have you had these symptoms (acute/chronic)?:Acute Reason for exam?:PT ARRIVES DUE TO CHEST PAIN THAT STARTED THIS MORNING. PT STATES HE FELL YESTERDAY AND TODAY DUE TO DIZZINESS. PT ALSO REPORT DRINKING 12 BEERS A DAY. PT ARRIVES WITH HEAVY TREMORS AND NAUSEA Type of Exam?:Initial Mechanism of injury?:PT ARRIVES DUE TO CHEST PAIN THAT STARTED THIS MORNING. PT STATES HE FELL YESTERDAY AND TODAY DUE TO DIZZINESS. PT ALSO REPORT DRINKING 12 BEERS A DAY. PT ARRIVES WITH HEAVY TREMORS AND NAUSEA COMPARISON: CT and cervical spine 05/22/2022; CT lumbar spine myelogram 05/04/2021, thoracic spine radiographs 02/21/2021 TECHNIQUE: Axial noncontrast CT imaging of the head and cervical spine was performed with coronal and sagittal reformats. Dose reduction techniques were achieved by using automated exposure control and/or adjustment of mA and/or kV according to patient size and/or use of iterative reconstruction technique. Reconstructed axial, coronal and sagittal imaging of the thoracic and lumbar spine was performed from dedicated CTA chest abdomen pelvis. Dose reduction techniques were utilized on the initial imaging. FINDINGS: CT head Calvarium/skull base: No evidence of acute fracture or destructive lesion.Mastoids and middle ears demonstrate no substantial mucosal disease. Paranasal sinuses:No air fluid levels. Brain: No acute intracranial hemorrhage. No acute large vascular territory infarct. No mass lesion or mass effect.No hydrocephalus. CT cervical, thoracic Alignment: No substantial subluxation. Vertebrae: No acute fracture. Vertebral body heights are maintained. Craniocervical junction: No focal abnormality. Degenerative changes: Cervical spine: The mild degenerative changes the cervical spine most prominent at C5-C6 with moderate disc height loss and posterior disc osteophyte complex with resulting mild to moderate canal stenosis. Multilevel uncovertebral arthropathy is present there is associated multilevel [id number] foraminal stenosis. Thoracic/lumbar spine: Similar sclerotic degenerative endplate change with associated Schmorl's nodes involving the lower thoracic and upper lumbar spine. Multilevel mild height loss with vacuum disc phenomena noted at L5-S1. Minimal multilevel disc bulges are present. There is no substantial canal or foraminal stenosis visible by CT. Next spinal stimulator leads are redemonstrated. Lumbar spine: Additional comments: Visualized soft tissues of the neck are unremarkable. For soft tissue findings related to the chest, pelvis please see the dedicated CT chest abdomen pelvis performed contemporaneously and reported separately. IMPRESSION: 1. No acute intracranial process 2. No acute fracture or malalignment of the cervical, thoracic or lumbar spine. Workstation ID: [id number] [facility] 1. No acute osseous abnormality identified in the left elbow or forearm. 2. Chronic appearing deformity of the distal humerus. Workstation ID: [id number] [employer] EXAMINATION: XR FOREARM LEFT 2 VIEWS; XR ELBOW LEFT 3+ VIEWS (STANDARD) 03/04/2023 8:28 am HISTORY: ORDERING SYSTEM PROVIDED HISTORY: Bruise, pain, s/p fall, TECHNOLOGIST PROVIDED HISTORY: Injury/Trauma Reason for exam: Bruise, pain, s/p fall Cancer History: n Surgery, RadiationHistory: n Encounter Type: Initial Mechanism of injury: FALL ORDERING SYSTEM PROVIDED DIAGNOSIS CODES: COMPARISON: None. FINDINGS: Left elbow: No convincing acute fracture or dislocation identified. Chronic deformity of the distal humerus, likely related to remote injury. Small echo non enthesophyte. No joint effusion. Unremarkable soft tissues. Left forearm: No acute fracture or dislocation. Grossly intact left wrist joint. Proximal forearm soft tissue swelling. [employer] Zena Knox MD - 03/04/2023 EXAMINATION: XR FOREARM LEFT 2 VIEWS; XR ELBOW LEFT 3+ VIEWS (STANDARD) 03/04/2023 8:28 am HISTORY: ORDERING SYSTEM PROVIDED HISTORY: Bruise, pain, s/p fall, TECHNOLOGIST PROVIDED HISTORY: Injury/Trauma Reason for exam: Bruise, pain, s/p fall Cancer History: n Surgery, RadiationHistory: n Encounter Type: Initial Mechanism of injury: FALL ORDERING SYSTEM PROVIDED DIAGNOSIS CODES: COMPARISON: None. FINDINGS: Left elbow: No convincing acute fracture or dislocation identified. Chronic deformity of the distal humerus, likely related to remote injury. Small echo non enthesophyte. No joint effusion. Unremarkable soft tissues. Left forearm: No acute fracture or dislocation. Grossly intact left wrist joint. Proximal forearm soft tissue swelling. IMPRESSION: 1. No acute osseous abnormality identified in the left elbow or forearm. 2. Chronic appearing deformity of the distal humerus. Workstation ID: [id number] [facility] No Panel InformationOrdered By: Marci Lake on 03-04-2023 [facility] Work Phone: No Panel InformationOrdered By: Zena Cuba on 03-04-2023 [facility] Work Phone: PT/INRon 03-04-2023 INR Coag (PPP) [Relative time] 1.0 {INR} 0.8 - 1.1 [facility] S. pneumoniae Urine Antigeno n 03-04-2023 Interpretation and review of laboratory results Normal [facility] S. pneumoniae Ag Ql (U) Negative Presumptive Negative for Pneumococcal pneumoniae [facility] Comment on above: A negative result barroso ggests no current or recent pneumococcal infection. A negative result does not rule out Streptococcus pneumoniae infection since the antigen present in the sample may be below the detection limit of the test. [facility] Troponinon 03-04-2023 Troponin I 4 ng/L NINF - 59 ng/L [facility] Troponin I Interpretation Normal [facility] Urinalysison 03-04-2023 Bacteria Auto Ql (U) None Seen None Se en /hpf [facility] Bilirubin Ql (U) Negative Negative [facility] th Clarity Refractometry automated (U) Clear Clear [facility] Color (U) Yellow Colorless, Yellow [facility] Glucose Auto test strip (U) [Mass/Vol] Negative Negative mg/dL [facility] Hemoglobin Auto test strip Ql (U) Negative Negative [facility] Interpretation and review of laboratory results Abnormal [facility] Ketones (U) [Mass/Vol] Trace Abnormal Negative mg/dL [facility] Leukocyte esterase Auto test strip Ql (U) Negative Negative [facility] Mucus Auto (Urine sed) [#/Area] Rare None Seen, Rare /lpf [facility] Nitrite Auto test strip Ql (U) Negative Negative [facility] pH (U) 6.5 [pH] 5.0 - 7.0 [facility] Protein (U) [Mass/Vol] Negative Negative mg/dL [facility] RBC Auto (Urine sed) [#/Area] [facility] Specific gravity (U) [Rel density] High 1.005 - 1.025 [facility] Comment on above: Abnormally high spec ific gravity results can be the result of the presence of x-ray or radiographic contrast media or mannitol(diuretic) administration or with large amounts of protein, glucose or in cloudy specimens. Urobilinogen (U) [Mass/Vol] mg/dL NINF - 2.0 mg/dL [facility] WBC Auto (Urine sed) [#/Area] [facility] Microscopic examinat ion is performed on all urinalysis samples and only positive findings are reported. The test for blood on the chemical analytic portion of urinalysis may also be positive due to hemoglobinuria and myoglobinuria and if red blood cells are present they are quantified by microscopic examination. [facility] Urine Drug Screenon 03-04- 23 Amphetamines Ql (U) Not detected None Detected [facility] Comment on above: Urine Amphetamine Cu toff: < 1000 ng/mL = None Detected Barbiturates Screen Ql (U) Not detected None Detected [facility] Comment on above: Urine Barbiturates C utoff: < 200 ng/mL = None Detected Benzodiazepines Ql (U) Not detected None Detected [facility] Comment on above: Urine Benzodiazepine Cutoff: < 200 ng/mL = None Detected Buprenorphine Ql (U) Not detected None Detected [facility] Comment on above: Urine Buprenorphine Cutoff: < 5 ng/mL = None Detected Cannabinoids Screen Ql (U) Positive Abnormal None Detected [facility] Comment on above: Urine Cannabinoids C utoff: < 50 ng/mL = None Detected Cocaine Ql (U) Not detected None Detected [facility] Comment on above: Urine Cocaine Cutoff : < 300 ng/mL = None Detected fentaNYL+Norfentanyl Screen Ql (U) Not detected None Detected [facility] Comment on above: Urine Fentanyl Cutof f: < 1 ng/mL = None Detected Interpretation and review of laboratory results Abnormal [facility] Methadone Screen Ql (U) Not detected None Detected [facility] Comment on above: Urine Methadone Cuto ff: < 300 ng/mL = None Detected Opiates Screen Ql (U) Not detected None Detecte d [facility] Comment on above: Urine Opiates Cutoff : < 300 ng/mL = None Detected oxyCODONE Ql (U) Not detected None [facility]ed [facility] Comment on above: Urine Oxycodone Cuto ff: < 100 ng/mL = None Detected Specimen will be kep t for 1 week, if the sample is adequate. Confirmation testing can be initiated by calling the lab within 1 week. Screen results should be used for treatment purposes only. [facility] XR Elbow - left 3 [facility] Radiology Study observation (narrative) [facility] XR Radius and Ulna - left 2 [facility] 03-04-2023 Radiology Study observation (narrative) [facility] Basic metabolic 2000 panelOr dered By: Ivanna Gil on 10-03-2022 Anion gap [Moles/Vol] 8 mmol/L Low 10 - 2 0 mmol/L [facility] Calcium [Mass/Vol] 8.4 mg/dL 8.4 - 10. 2 mg/dL [facility] Chloride [Moles/Vol] 115 mmol/L High 98 - 10 8 mmol/L [facility] Creatinine [Mass/Vol] 0.88 mg/dL 0.50 - 1.30 mg/dL [facility] GFR/1.73 sq M.predicted CKD-EPI (S/P/Bld) [Vol rate/Area] 108 - PINF [facility] Comment on above: Estimated GFR was ca lculated using the 2020 CKD-EPI creatinine equation. Glucose [Mass/Vol] 78 mg/dL 65 - 99 mg/dL [facility] HCO3 [Moles/Vol] 21 mmol/L 21 - 32 mmol/L [facility] Interpretation and review of laboratory results Abnormal [facility] Potassium [Moles/Vol] 4.5 mmol/L 3.5 - 5.1 mmol/L [facility] Comment on above: moderate hemolysis, result may be falsely increased. Sodium [Moles/Vol] 139 mmol/L 135 - 145 mmol/L [facility] Urea nitrogen [Mass/Vol] 5 mg/dL Low 8 - 25 mg/dL [facility] Urea nitrogen/Creatinine [Mass ratio] 5.7 mg/mg Low 10.0 - 20.0 [facility] y [facility] has implemented the eGFR calculation approach that does not have a coefficient for race that conforms to the NKF-ASN Task Force Recommendations. [facility] Magnesium Levelon 10-03-2022 Magnesium [Mass/Vol] 2.1 mg/dL 1.6 - 2 .4 mg/dL [facility] Comment on above: moderate hemolysis, result may be falsely increased. Magnesium [Mass/Vol]on 10-03 Interpretation and review of laboratory results Normal [facility] Phosphate [Mass/Vol]on 10-03 Interpretation and review of laboratory results Abnormal [facility] Phosphoruson 10-03-2022 Phosphate [Mass/Vol] 2.1 mg/dL Low 2.7 - 4 .5 mg/dL [facility] Alcohol, Medicalon Ethanol [Mass/Vol] mg/dL NINF - 10 .00 mg/dL [facility] Comment on above: Alcohol cutoff: <10. 00 mg/dL = None Detected Ammoniaon 10-02-2022 Ammonia (P) [Mass/Vol] 53 ug/dL High [facility] Ammonia (P) [Mass/Vol]on Interpretation and review of laboratory results Abnormal [facility] Basic metabolic 2000 panelon 10-02-2022 Anion gap [Moles/Vol] 8 mmol/L Low 10 - 2 0 mmol/L [facility] Calcium [Mass/Vol] 8.6 mg/dL 8.4 - 10. 2 mg/dL [facility] Chloride [Moles/Vol] 114 mmol/L High 98 - 10 8 mmol/L [facility] Creatinine [Mass/Vol] 1.20 mg/dL 0.50 - 1.30 mg/dL [facility] GFR/1.73 sq M.predicted CKD-EPI (S/P/Bld) [Vol rate/Area] 76 - PINF [facility] Comment on above: Estimated GFR was ca lculated using the 2020 CKD-EPI creatinine equation. Glucose [Mass/Vol] 118 mg/dL High 65 - 99 mg/dL [facility] HCO3 [Moles/Vol] 23 mmol/L 21 - 32 mmol/L [facility] Interpretation and review of laboratory results Abnormal [facility] Potassium [Moles/Vol] 3.4 mmol/L Low 3.5 - 5.1 mmol/L [facility] Sodium [Moles/Vol] 142 mmol/L 135 - 145 mmol/L [facility] Urea nitrogen [Mass/Vol] 6 mg/dL Low 8 - 25 mg/dL [facility] Urea nitrogen/Creatinine [Mass ratio] 5.0 mg/mg Low 10.0 - 20.0 [facility] has implemented the eGFR calculation approach that does not have a coefficient for race that conforms to the NKF-ASN Task Force Recommendations. [facility] CBC Auto Differentialon 09-15 Basophils (Bld) [#/Vol] 0.02 10*3/uL [facility] Basophils/100 WBC (Bld) 0.3 % [facility] Eosinophils (Bld) [#/Vol] 0.15 10*3/uL [facility] Eosinophils/100 WBC (Bld) 2.6 % [facility] Erythrocyte distribution width (RBC) [Entitic vol] 13.3 % 11.6 - 14.8 % [facility] Hematocrit (Bld) [Volume fraction] 36.9 % Low 41.0 - 53.0 % [facility] Hemoglobin (Bld) [Mass/Vol] 12.4 g/dL Low 13.5 - 17.5 g/dL [facility] Immature granulocytes (Bld) [#/Vol] 0.02 10*3/uL [facility] Immature granulocytes/100 WBC (Bld) 0.30 % [facility] Comment on above: The IG parameter is the percentage of metamyelocytes, myelocytes and promyelocytes. An immature granulocyte count (IG) of 1% or more suggests the possibility of infection, an IG count of 3% is very likely related to an infection. Interpretation and review of laboratory results Abnormal [facility] Lymphocytes (Bld) [#/Vol] 1.63 10*3/uL [facility] Lymphocytes/100 WBC (Bld) 28.5 % [facility] MCH (RBC) [Entitic mass] 31.8 pg 26.0 - 34.0 pg [facility] MCHC (RBC) [Mass/Vol] 33.6 g/dL 31.0 - 37.0 g/dL [facility] MCV (RBC) [Entitic vol] 94.6 fL 80.0 - 100.0 fL [facility] Monocytes (Bld) [#/Vol] 0.66 10*3/uL [facility] Monocytes/100 WBC (Bld) 11.5 % [facility] Neutrophils (Bld) [#/Vol] 3.24 10*3/uL [facility] Neutrophils/100 WBC (Bld) 56.8 % [facility] Nucleated RBC (Bld) [#/Vol] 0.00 10*3/uL [facility] Nucleated RBC/100 WBC (Bld) [Ratio] 0.0 % [facility] Platelet mean volume (Bld) [Entitic vol] 10.1 fL 9.4 - 12.4 fL [facility] Platelets (Bld) [#/Vol] 146 10*3/uL Low [facility] RBC (Bld) [#/Vol] 3.90 10*6/uL Low [facility] WBC (Bld) [#/Vol] 5.72 10*3/uL [facility] Drugs of Abuse Screen, Urine on 10-02-2022 Amphetamines Ql (U) Not detected None Detected [facility] Comment on above: Urine Amphetamine Cu toff: < 1000 ng/mL = None Detected Barbiturates Screen Ql (U) Positive Abnormal None Detected [facility] Comment on above: Urine Barbiturates C utoff: < 200 ng/mL = None Detected Benzodiazepines Ql (U) Not detected None Detected [facility] Comment on above: Urine Benzodiazepine Cutoff: < 200 ng/mL = None Detected Buprenorphine Ql (U) Not detected None Detected [facility] Comment on above: Urine Buprenorphine Cutoff: < 5 ng/mL = None Detected Cannabinoids Screen Ql (U) Positive Abnormal None Detected [facility] Comment on above: Urine Cannabinoids C utoff: < 50 ng/mL = None Detected Cocaine Ql (U) Not detected None Detected [facility] Comment on above: Urine Cocaine Cutoff : < 300 ng/mL = None Detected fentaNYL+Norfentanyl Screen Ql (U) Not detected None Detected [facility] Comment on above: Urine Fentanyl Cutof f: < 1 ng/mL = None Detected Interpretation and review of laboratory results Abnormal [facility] Methadone Screen Ql (U) Not detected None Detected [facility] Comment on above: Urine Methadone Cuto ff: < 300 ng/mL = None Detected Opiates Screen Ql (U) Not detected None Detecte d [facility] Comment on above: Urine Opiates Cutoff : < 300 ng/mL = None Detected oxyCODONE Ql (U) Not detected None [facility]ed [facility] Comment on above: Urine Oxycodone Cuto ff: < 100 ng/mL = None Detected Specimen will be kep t for 1 week, if the sample is adequate. Confirmation testing can be initiated by calling the lab within 1 week. Screen results should be used for treatment purposes only. [facility] Ethanol [Mass/Vol]on 023 Interpretation and review of laboratory results Normal [facility] Hepatic function 2000 panelo n 10-02-2022 Albumin [Mass/Vol] 4.5 g/dL 3.2 - 5.2 g/dL [facility] ALP [Catalytic activity/Vol] 74 U/L 40 - 150 U/L [facility] ALT [Catalytic activity/Vol] 30 U/L 14 - 65 U/L [facility] AST [Catalytic activity/Vol] 37 U/L 0 - 45 U/L [facility] Bilirubin [Mass/Vol] 0.4 mg/dL 0.0 - 1 .3 mg/dL [facility] Bilirubin.conjugated [Mass/Vol] 0.1 mg/dL 0.0 - 0.4 mg/dL [facility] Interpretation and review of laboratory results Abnormal [facility] Protein [Mass/Vol] 8.2 g/dL High 6.0 - 8.0 g/dL [facility] INR Coag (PPP) [Relative jada e]on 10-02-2022 Interpretation and review of laboratory results Normal [facility] PT Coag (PPP) [Time] 14.0 s [facility] During the induction phase of oral anticoagulation, the INR may not reflect the anticoagulation status of the patient. Therapeutic ranges for INR's are: Most clinical situations: INR 2.0-3.0 Mechanical Prosthetic Valve: INR 2.5-3.5 Critical: INR >5.0 [facility] Magnesium Levelon 10-02-2022 Magnesium [Mass/Vol] 2.2 mg/dL 1.6 - 2 .4 mg/dL [facility] Magnesium [Mass/Vol]on 10-02 Interpretation and review of laboratory results Normal [facility] No Panel Informationon 10-02 Extra Tube Hold for add-ons. [facility] Comment on above: Auto resulted. [facility] PT/INRon 10-02-2022 INR Coag (PPP) [Relative time] 1.1 {INR} 0.8 - 1.1 [facility] TSH DL <= 0.005 mIU/L Qnon 0 10-02-2022 Interpretation and review of laboratory results Normal [facility] TSH Qn 1.80 m[IU]/L [facility] Basic metabolic 1998 panelOr dered By: Lizz Herbert on 10-01-2022 Anion gap [Moles/Vol] 9 mmol/L Low 10 - 2 0 mmol/L [facility] Chloride [Moles/Vol] 112 mmol/L High 98 - 10 8 mmol/L [facility] Creatinine [Mass/Vol] 1.31 mg/dL High 0.50 - 1.30 mg/dL [facility] GFR/1.73 sq M.predicted CKD-EPI (S/P/Bld) [Vol rate/Area] 68 - PINF [facility] Comment on above: Estimated GFR was ca lculated using the 2020 CKD-EPI creatinine equation. Glucose [Mass/Vol] 89 mg/dL 65 - 99 mg/dL [facility] HCO3 [Moles/Vol] 23 mmol/L 21 - 32 mmol/L [facility] Interpretation and review of laboratory results Abnormal [facility] Potassium [Moles/Vol] 3.6 mmol/L 3.5 - 5.1 mmol/L [facility] Sodium [Moles/Vol] 140 mmol/L 135 - 145 mmol/L [facility] Urea nitrogen [Mass/Vol] 6 mg/dL Low 8 - 25 mg/dL [facility] Urea nitrogen/Creatinine [Mass ratio] 4.6 mg/mg Low 10.0 - 20.0 [facility] has implemented the eGFR calculation approach that does not have a coefficient for race that conforms to the NKF-ASN Task Force Recommendations. [facility] CBC Auto Differentialon 09-15 Basophils (Bld) [#/Vol] 0.02 10*3/uL [facility] Basophils/100 WBC (Bld) 0.3 % [facility] Eosinophils (Bld) [#/Vol] 0.13 10*3/uL [facility] Eosinophils/100 WBC (Bld) 1.7 % [facility] Erythrocyte distribution width (RBC) [Entitic vol] 13.4 % 11.6 - 14.8 % [facility] Hematocrit (Bld) [Volume fraction] 36.9 % Low 41.0 - 53.0 % [facility] Hemoglobin (Bld) [Mass/Vol] 12.5 g/dL Low 13.5 - 17.5 g/dL [facility] Immature granulocytes (Bld) [#/Vol] 0.02 10*3/uL [facility] Immature granulocytes/100 WBC (Bld) 0.30 % [facility] Comment on above: The IG parameter is the percentage of metamyelocytes, myelocytes and promyelocytes. An immature granulocyte count (IG) of 1% or more suggests the possibility of infection, an IG count of 3% is very likely related to an infection. Interpretation and review of laboratory results Abnormal [facility] Lymphocytes (Bld) [#/Vol] 2.15 10*3/uL [facility] Lymphocytes/100 WBC (Bld) 27.4 % [facility] MCH (RBC) [Entitic mass] 31.4 pg 26.0 - 34.0 pg [facility] MCHC (RBC) [Mass/Vol] 33.9 g/dL 31.0 - 37.0 g/dL [facility] MCV (RBC) [Entitic vol] 92.7 fL 80.0 - 100.0 fL [facility] Monocytes (Bld) [#/Vol] 0.92 10*3/uL High [facility] Monocytes/100 WBC (Bld) 11.7 % [facility] Neutrophils (Bld) [#/Vol] 4.60 10*3/uL [facility] Neutrophils/100 WBC (Bld) 58.6 % [facility] Nucleated RBC (Bld) [#/Vol] 0.00 10*3/uL [facility] Nucleated RBC/100 WBC (Bld) [Ratio] 0.0 % [facility] Platelet mean volume (Bld) [Entitic vol] 10.4 fL 9.4 - 12.4 fL [facility] Platelets (Bld) [#/Vol] 158 10*3/uL [facility] RBC (Bld) [#/Vol] 3.98 10*6/uL [facility] WBC (Bld) [#/Vol] 7.84 10*3/uL [facility] UrinalysisOrdered By: Jayde Luong on 10-01-2022 Bacteria Auto Ql (U) None Seen None Se en /hpf [facility] Bilirubin Ql (U) Negative Negative [facility] Clarity Refractometry automated (U) Clear Clear [facility] Color (U) Yellow Colorless, Yellow [facility] Glucose Auto test strip (U) [Mass/Vol] Negative Negative mg/dL [facility] Hemoglobin Auto test strip Ql (U) Negative Negative [facility] Interpretation and review of laboratory results Abnormal [facility] Ketones (U) [Mass/Vol] Negative Negative mg/dL [facility] Leukocyte esterase Auto test strip Ql (U) Negative Negative [facility] Nitrite Auto test strip Ql (U) Negative Negative [facility] pH (U) 7.0 [pH] 5.0 - 7.0 [facility] Protein (U) [Mass/Vol] Negative Negative mg/dL [facility] Specific gravity (U) [Rel density] 1.004 Low 1.005 - 1.025 [facility] Urobilinogen (U) [Mass/Vol] mg/dL NINF - 2.0 mg/dL [facility] Microscopic examinat ion is performed on all urinalysis samples and only positive findings are reported. The test for blood on the chemical analytic portion of urinalysis may also be positive due to hemoglobinuria and myoglobinuria and if red blood cells are present they are quantified by microscopic examination. [facility] APTTon 09-27-2022 aPTT Coag (Bld) [Time] 30 s [facility] Basic metabolic 2000 panelOr dered By: Ami Acuña on 09-27-2022 Anion gap [Moles/Vol] 11 mmol/L 10 - 2 0 mmol/L [facility] Calcium [Mass/Vol] 8.4 mg/dL 8.4 - 10. 2 mg/dL [facility] Chloride [Moles/Vol] 112 mmol/L High 98 - 10 8 mmol/L [facility] Creatinine [Mass/Vol] 0.62 mg/dL 0.50 - 1.30 mg/dL [facility] GFR/1.73 sq M.predicted CKD-EPI (S/P/Bld) [Vol rate/Area] 120 - PINF [facility] Comment on above: Estimated GFR was ca lculated using the 2020 CKD-EPI creatinine equation. Glucose [Mass/Vol] 82 mg/dL 65 - 99 mg/dL [facility] HCO3 [Moles/Vol] 23 mmol/L 21 - 32 mmol/L [facility] Interpretation and review of laboratory results Abnormal [facility] Potassium [Moles/Vol] 3.7 mmol/L 3.5 - 5.1 mmol/L [facility] Sodium [Moles/Vol] 142 mmol/L 135 - 145 mmol/L [facility] Urea nitrogen [Mass/Vol] 2 mg/dL Low 8 - 25 mg/dL [facility] Urea nitrogen/Creatinine [Mass ratio] 3.2 mg/mg Low 10.0 - 20.0 [facility] Comment on above: Unable to calculate; a result component is outside measurable limits. [facility] Laborator y Services has implemented the eGFR calculation approach that does not have a coefficient for race that conforms to the NKF-ASN Task Force Recommendations. [facility] CBC Auto Differentialon 09-15 Basophils (Bld) [#/Vol] 0.02 10*3/uL [facility] Basophils/100 WBC (Bld) 0.4 % [facility] Eosinophils (Bld) [#/Vol] 0.05 10*3/uL [facility] Eosinophils/100 WBC (Bld) 1.1 % [facility] Erythrocyte distribution width (RBC) [Entitic vol] 14.1 % 11.6 - 14.8 % [facility] Hematocrit (Bld) [Volume fraction] 36.1 % Low 41.0 - 53.0 % [facility] Hemoglobin (Bld) [Mass/Vol] 12.3 g/dL Low 13.5 - 17.5 g/dL [facility] Immature granulocytes (Bld) [#/Vol] 0.01 10*3/uL [facility] Immature granulocytes/100 WBC (Bld) 0.20 % [facility] Comment on above: The IG parameter is the percentage of metamyelocytes, myelocytes and promyelocytes. An immature granulocyte count (IG) of 1% or more suggests the possibility of infection, an IG count of 3% is very likely related to an infection. Interpretation and review of laboratory results Abnormal [facility] Lymphocytes (Bld) [#/Vol] 1.01 10*3/uL [facility] Lymphocytes/100 WBC (Bld) 21.8 % [facility] MCH (RBC) [Entitic mass] 31.5 pg 26.0 - 34.0 pg [facility] MCHC (RBC) [Mass/Vol] 34.1 g/dL 31.0 - 37.0 g/dL [facility] MCV (RBC) [Entitic vol] 92.3 fL 80.0 - 100.0 fL [facility] Monocytes (Bld) [#/Vol] 0.42 10*3/uL [facility] Monocytes/100 WBC (Bld) 9.1 % [facility] Neutrophils (Bld) [#/Vol] 3.13 10*3/uL [facility] Neutrophils/100 WBC (Bld) 67.4 % [facility] Nucleated RBC (Bld) [#/Vol] 0.00 10*3/uL [facility] Nucleated RBC/100 WBC (Bld) [Ratio] 0.0 % [facility] Platelet mean volume (Bld) [Entitic vol] 10.0 fL 9.4 - 12.4 fL [facility] Platelets (Bld) [#/Vol] 174 10*3/uL [facility] RBC (Bld) [#/Vol] 3.91 10*6/uL [facility] WBC (Bld) [#/Vol] 4.64 10*3/uL [facility] Drugs of Abuse Screen, Urine on 09-27-2022 Amphetamines Ql (U) Not detected None Detected [facility] Comment on above: Urine Amphetamine Cu toff: < 1000 ng/mL = None Detected Barbiturates Screen Ql (U) Positive Abnormal None Detected [facility] Comment on above: Urine Barbiturates C utoff: < 200 ng/mL = None Detected Benzodiazepines Ql (U) Not detected None Detected [facility] Comment on above: Urine Benzodiazepine Cutoff: < 200 ng/mL = None Detected Buprenorphine Ql (U) Not detected None Detected [facility] Comment on above: Urine Buprenorphine Cutoff: < 5 ng/mL = None Detected Cannabinoids Screen Ql (U) Positive Abnormal None Detected [facility] Comment on above: Urine Cannabinoids C utoff: < 50 ng/mL = None Detected Cocaine Ql (U) Not detected None Detected [facility] Comment on above: Urine Cocaine Cutoff : < 300 ng/mL = None Detected fentaNYL+Norfentanyl Screen Ql (U) Not detected None Detected [facility] Comment on above: Urine Fentanyl Cutof f: < 1 ng/mL = None Detected Interpretation and review of laboratory results Abnormal [facility] Methadone Screen Ql (U) Not detected None Detected [facility] Comment on above: Urine Methadone Cuto ff: < 300 ng/mL = None Detected Opiates Screen Ql (U) Not detected None Detecte d [facility] Comment on above: Urine Opiates Cutoff : < 300 ng/mL = None Detected oxyCODONE Ql (U) Not detected None Detected [facility] Comment on above: Urine Oxycodone Cuto ff: < 100 ng/mL = None Detected Specimen will be kep t for 1 week, if the sample is adequate. Confirmation testing can be initiated by calling the lab within 1 week. Screen results should be used for treatment purposes only. [facility] Amphetamines Ql (U) Not detected None Detected [facility] Comment on above: Urine Amphetamine Cu toff: < 1000 ng/mL = None Detected Barbiturates Screen Ql (U) Positive Abnormal None Detected [facility] Comment on above: Urine Barbiturates C utoff: < 200 ng/mL = None Detected Benzodiazepines Ql (U) Not detected None Detected [facility] Comment on above: Urine Benzodiazepine Cutoff: < 200 ng/mL = None Detected Buprenorphine Ql (U) Not detected None Detected [facility] Comment on above: Urine Buprenorphine Cutoff: < 5 ng/mL = None Detected Cannabinoids Screen Ql (U) Positive Abnormal None Detected [facility] Comment on above: Urine Cannabinoids C utoff: < 50 ng/mL = None Detected Cocaine Ql (U) Not detected None Detected [facility] Comment on above: Urine Cocaine Cutoff : < 300 ng/mL = None Detected fentaNYL+Norfentanyl Screen Ql (U) Not detected None Detected [facility] Comment on above: Urine Fentanyl Cutof f: < 1 ng/mL = None Detected Interpretation and review of laboratory results Abnormal [facility] Methadone Screen Ql (U) Not detected None Detected [facility] Comment on above: Urine Methadone Cuto ff: < 300 ng/mL = None Detected Opiates Screen Ql (U) Not detected None Detecte d [facility] Comment on above: Urine Opiates Cutoff : < 300 ng/mL = None Detected oxyCODONE Ql (U) Not detected None Detected [facility] Comment on above: Urine Oxycodone Cuto ff: < 100 ng/mL = None Detected Specimen will be kep t for 1 week, if the sample is adequate. Confirmation testing can be initiated by calling the lab within 1 week. Screen results should be used for treatment purposes only. [facility] EKG 12-leadon 09-27-2022 Atrial Rate 95 BPM [facility] P [place] 82 degrees [facility] P-R Interval 142 ms [facility] Q-T Interval 362 ms [facility] QRS Duration 90 ms [facility] QTC Calculation (Bezet) 454 ms [facility] R [place] 95 degrees [facility] T [place] 76 degrees [facility] Ventricular Rate 95 BPM [facility] Normal sinus rhythm Rightward axis Borderline ECG ECG Cart Interpretation see physician note for interpretation. Confirmed by Maria Esther Mota ([id number]) on 09/27/2022 2:56:42 PM MUSE [facility] HbA1c (Bld) [Mass fraction]O rdered By: Yvonne Graf on 09-27-2022 Average glucose Estimated from glycated hemoglobin (Bld) [Mass/Vol] 108 mg/dL 68 - 114 mg/dL [facility] Interpretation and review of laboratory results Normal [facility] Normal: 4.0% - 5.6% Increased risk for diabetes: 5.7% - 6.4% Diabetes: >= 6.5% Pediatrics: No established reference range Estimated average glucose: 68-114 mg/dL [facility] Hemoglobin [id number] By: Jojo Graf on 09-27-2022 HbA1c (Bld) [Mass fraction] 5.4 % 4.0 - 5.6 % [facility] Hepatic function 2000 panelo n 09-27-2022 Albumin [Mass/Vol] 3.8 g/dL 3.2 - 5.2 g/dL [facility] ALP [Catalytic activity/Vol] 69 U/L 40 - 150 U/L [facility] ALT [Catalytic activity/Vol] 29 U/L 14 - 65 U/L [facility] AST [Catalytic activity/Vol] 51 U/L High 0 - 45 U/L [facility] Bilirubin [Mass/Vol] 0.8 mg/dL 0.0 - 1 .3 mg/dL [facility] Bilirubin.conjugated [Mass/Vol] 0.2 mg/dL 0.0 - 0.4 mg/dL [facility] Interpretation and review of laboratory results Abnormal [facility] Protein [Mass/Vol] 7.1 g/dL 6.0 - 8.0 g/dL [facility] INR Coag (PPP) [Relative jada e]on 09-27-2022 Interpretation and review of laboratory results Normal [facility] PT Coag (PPP) [Time] 13.5 s [facility] During the induction phase of oral anticoagulation, the INR may not reflect the anticoagulation status of the patient. Therapeutic ranges for INR's are: Most clinical situations: INR 2.0-3.0 Mechanical Prosthetic Valve: INR 2.5-3.5 Critical: INR >5.0 [facility] Lipaseon 09-27-2022 Lipase [Catalytic activity/Vol] 154 U/L 73 - 393 U/L [facility] Lipase [Catalytic activity/V ol]on 09-27-2022 Interpretation and review of laboratory results Normal [facility] Lipid 1996 panelon 07-13-202 3 Cholesterol [Mass/Vol] 177 mg/dL 100 - 199 mg/dL [facility] Comment on above: National Cholesterol Education Program Guidelines: Cholesterol Desirable: <200 mg/dL Borderline High: 200-239 mg/dL High: greater than or equal to 240 mg/dL Cholesterol in HDL [Mass/Vol] 99 mg/dL 40 - 59 mg/dL [facility] Comment on above: National Cholesterol Education Program Guidelines: HDL Cholesterol Low: <40 mg/dL Near Optimal: 40-59 mg/dL High: greater than or equal to 60 mg/dL Cholesterol in LDL [Mass/Vol] 63 mg/dL 10 - 130 mg/dL [facility] Comment on above: National Cholesterol Education Program Guidelines: LDL Cholesterol Optimal: <100 mg/dL Near Optimal/above Optimal: 100-129 mg/dL Borderline High: 130-159 mg/dL High: 160-189 mg/dL Very High: greater than or equal to 190 mg/dL Cholesterol non HDL [Mass/Vol] 78 mg/dL [facility] Comment on above: National Cholesterol Education Program Guidelines: NON HDL Cholesterol Desirable: <130 mg/dL Borderline High: 130-159 mg/dL High: 160-189 mg/dL Very High: > or = 190 mg/dL Cholesterol.total/Cho lesterol in HDL [Mass ratio] 1.8 {ratio} ratio [facility] Comment on above: Males Cholesterol/HD L Ratio: Average risk: 5.0 1/2 average risk: 3.4 2 x average risk: 9.6 Triglyceride [Mass/Vol] 76 mg/dL 30 - 150 mg/dL [facility] Comment on above: National Cholesterol Education Program Guidelines: Triglyceride Normal: <150 mg/dL Borderline High: 150-199 mg/dL High: 200-499 mg/dL Very High: greater than or equal to 500 mg/dL Magnesiumon 09-27-2022 Magnesium [Mass/Vol] 2.3 mg/dL 1.6 - 2 .4 mg/dL [facility] Magnesium [Mass/Vol]on 09-27 Interpretation and review of laboratory results Normal [facility] No Panel Informationon 09-27 [facility] PT/INRon 09-27-2022 INR Coag (PPP) [Relative time] 1.0 {INR} 0.8 - 1.1 [facility] Phosphate [Mass/Vol]on 09-27 Interpretation and review of laboratory results Normal [facility] Phosphoruson 09-27-2022 Phosphate [Mass/Vol] 3.2 mg/dL 2.7 - 4 .5 mg/dL [facility] TSH DL <= 0.005 mIU/L Qnon 0 09-27-2022 Interpretation and review of laboratory results Normal [facility] TSH Qn 2.29 m[IU]/L [facility] aPTT Coag (Bld) [Time]on Interpretation and review of laboratory results Normal [facility] Therapeutic range fo r APTT's is 68 - 104 seconds [facility] Alcohol, Medicalon Ethanol [Mass/Vol] 179.90 mg/dL High NINF - 10 .00 mg/dL [facility] Basic metabolic 2000 panelon 09-26-2022 Anion gap [Moles/Vol] 16 mmol/L 10 - 2 0 mmol/L [facility] Calcium [Mass/Vol] 9.1 mg/dL 8.4 - 10. 2 mg/dL [facility] Chloride [Moles/Vol] 101 mmol/L 98 - 10 8 mmol/L [facility] Creatinine [Mass/Vol] 0.83 mg/dL 0.50 - 1.30 mg/dL [facility] GFR/1.73 sq M.predicted CKD-EPI (S/P/Bld) [Vol rate/Area] 110 - PINF [facility] Comment on above: Estimated GFR was ca lculated using the 2020 CKD-EPI creatinine equation. Glucose [Mass/Vol] 183 mg/dL High 65 - 99 mg/dL [facility] HCO3 [Moles/Vol] 23 mmol/L 21 - 32 mmol/L [facility] Potassium [Moles/Vol] 3.5 mmol/L 3.5 - 5.1 mmol/L [facility] Sodium [Moles/Vol] 136 mmol/L 135 - 145 mmol/L [facility] Urea nitrogen [Mass/Vol] 3 mg/dL Low 8 - 25 mg/dL [facility] Urea nitrogen/Creatinine [Mass ratio] 3.6 mg/mg Low 10.0 - 20.0 [facility] Laborator y Services has implemented the eGFR calculation approach that does not have a coefficient for race that conforms to the NKF-ASN Task Force Recommendations. [facility] CBC Auto Differentialon 09-15 Basophils (Bld) [#/Vol] 0.03 10*3/uL [facility] Basophils/100 WBC (Bld) 0.7 % [facility] Eosinophils (Bld) [#/Vol] 0.03 10*3/uL [facility] Eosinophils/100 WBC (Bld) 0.7 % [facility] Erythrocyte distribution width (RBC) [Entitic vol] 13.6 % 11.6 - 14.8 % [facility] Hematocrit (Bld) [Volume fraction] 38.8 % Low 41.0 - 53.0 % [facility] Hemoglobin (Bld) [Mass/Vol] 13.5 g/dL 13.5 - 17.5 g/dL [facility] Immature granulocytes (Bld) [#/Vol] 0.01 10*3/uL [facility] Immature granulocytes/100 WBC (Bld) 0.20 % [facility] Comment on above: The IG parameter is the percentage of metamyelocytes, myelocytes and promyelocytes. An immature granulocyte count (IG) of 1% or more suggests the possibility of infection, an IG count of 3% is very likely related to an infection. Interpretation and review of laboratory results Abnormal [facility] Lymphocytes (Bld) [#/Vol] 1.41 10*3/uL [facility] Lymphocytes/100 WBC (Bld) 32.3 % [facility] MCH (RBC) [Entitic mass] 31.6 pg 26.0 - 34.0 pg [facility] MCHC (RBC) [Mass/Vol] 34.8 g/dL 31.0 - 37.0 g/dL [facility] MCV (RBC) [Entitic vol] 90.9 fL 80.0 - 100.0 fL [facility] Monocytes (Bld) [#/Vol] 0.40 10*3/uL [facility] Monocytes/100 WBC (Bld) 9.2 % [facility] Neutrophils (Bld) [#/Vol] 2.48 10*3/uL [facility] Neutrophils/100 WBC (Bld) 56.9 % [facility] Nucleated RBC (Bld) [#/Vol] 0.00 10*3/uL [facility] Nucleated RBC/100 WBC (Bld) [Ratio] 0.0 % [facility] Platelet mean volume (Bld) [Entitic vol] 9.6 fL 9.4 - 12.4 fL [facility] Platelets (Bld) [#/Vol] 221 10*3/uL [facility] RBC (Bld) [#/Vol] 4.27 10*6/uL [facility] WBC (Bld) [#/Vol] 4.36 10*3/uL [facility] ECG 12 Leadon 09-26-2022 Jada Patel CN P 09/26/2022 8:34 PM ECG 12 Lead Date/Time: 09/26/2022 8:33 PM Performed by: Jada Patel CNP Authorized by: Loli Jimenes MD Interpreted by ED attending physician Previous ECG: no previous ECG available Rhythm: sinus rhythm BPM: 95 Conduction: conduction normal normal VT interval normal QRS interval normal QT interval Clinical impression: normal ECG [facility] EKGon 09-26-2022 [facility] Ethanol [Mass/Vol]on 023 Interpretation and review of laboratory results Abnormal [facility] Hepatic function 2000 panelo n 09-26-2022 Albumin [Mass/Vol] 4.5 g/dL 3.2 - 5.2 g/dL [facility] ALP [Catalytic activity/Vol] 81 U/L 40 - 150 U/L [facility] ALT [Catalytic activity/Vol] 34 U/L 14 - 65 U/L [facility] AST [Catalytic activity/Vol] 48 U/L High 0 - 45 U/L [facility] Bilirubin [Mass/Vol] 0.6 mg/dL 0.0 - 1 .3 mg/dL [facility] Bilirubin.conjugated [Mass/Vol] 0.2 mg/dL 0.0 - 0.4 mg/dL [facility] Protein [Mass/Vol] 8.3 g/dL High 6.0 - 8.0 g/dL [facility] Magnesium Levelon 09-26-2022 Magnesium [Mass/Vol] 2.2 mg/dL 1.6 - 2 .4 mg/dL [facility] Magnesium [Mass/Vol]on 09-26 Interpretation and review of laboratory results Normal [facility] No Panel Informationon 09-26 [facility] Interpretation and review of laboratory results Abnormal [facility] Absolute lymphocyte countOrd ered By: Dr. Nye on 06-15-2022 Lymphocytes Auto (Unsp spec) [#/Vol] 0.54 10*3/uL 0.83-4.51 [facility] Basophil percentageOrdered B y: Dr. Nye on 06-15-2022 Ammonia (P) [Moles/Vol] 30.0 umol/L 11-32 [facility] Basophil percentage 3.6 mg/dL 2.5-4.9 [facility] Basophils/100 WBC (Bld) 0.9 % 0-1 [facility] Bilirubin [Mass/Vol] 0.50 mg/dL 0.20-1.00 [facility] Comment on above: For patients on eltr ombopag therapy, use of Dimension [place] TBIL is not recommended. Chloride [Moles/Vol] 105 mmol/L 98-107 [facility] Eosinophils/100 WBC (Bld) 0.7 % 0-5 [facility] Glucose [Mass/Vol] 106 mg/dL 74-106 [facility] Comment on above: Fasting Glucose resu lt from 100 to 125 mg/dL suggests IMPAIRED HOMEOSTASIS per A.D.A. criteria. Neutrophils (Bld) [#/Vol] 3.4 10*3/uL 2.0-7.7 [facility] Neutrophils/100 WBC (Bld) 73.9 % 47-70 [facility] Potassium [Moles/Vol] 3.5 mmol/L 3.5-5.1 [facility] Protein [Mass/Vol] 7.4 g/dL 6.4-8.2 [facility] Sodium [Moles/Vol] 138 mmol/L 136-145 [facility] WBC (Bld) [#/Vol] 4.6 10*3/uL 4.4-11.0 [facility] Blood erythrocytes count (nu mber/volume)Ordered By: Dr. Nye on 06-15-2022 RBC (Bld) [#/Vol] 4.06 10*6/uL 4.6-6.2 [facility] Blood hemoglobin measurement (mass/volume)Ordered By: Dr. Nye on 06-15-2022 Hemoglobin (Bld) [Mass/Vol] 13.1 g/dL 13.0-16.5 [facility] Blood lymphocytes/100 leukoc ytesOrdered By: Dr. Nye on 06-15-2022 Lymphocytes/100 WBC (Bld) 11.7 % 19-41 [facility] Blood manual differential co mment interpretation (narrative result)Ordered By: Dr. Nye on 06-15-2022 Manual differential comment Garret (Bld) [Interp] SCANNED [facility] Comment on above: LYMPHOPENIA NOTED Blood monocytes/100 leukocyt esOrdered By: Dr. Nye on 06-15-2022 Monocytes/100 WBC (Bld) 12.6 % 0-10 [facility] Blood platelet mean volumeOr dered By: Dr. Nye on 06-15-2022 Platelet mean volume (Bld) [Entitic vol] 9.9 fL 6.2-12.0 [facility] Determination of erythrocyte mean corpuscular volume (MCV)Ordered By: Dr. Nye on 06-15-2022 MCV (RBC) [Entitic vol] 95.6 fL 80-94 [facility] HIV 1 and HIV-2 antibody ass ay with HIV-1 p24 antigen detectionOrdered By: Dr. Nye on 06-15-2022 HIV 1+2 Ab+HIV1 p24 Ag IA Ql Non-Reactive Nonreactive [facility] Hematocrit Auto (Bld) [Volum e fraction]Ordered By: Dr. Nye on 06-15-2022 Hematocrit (Bld) [Volume fraction] 38.8 % 40-54 [facility] INR in Blood by Coagulation assayOrdered By: Dr. Nye on 06-15-2022 INR Coag (Bld) [Relative time] 1.0 {INR} [facility] Laboratory - Chemistry and C hemistry - challengeOrdered By: Dr. Nye on 06-15-2022 ALP [Catalytic activity/Vol] 167 U/L 45-117 [facility] ALT [Catalytic activity/Vol] 145 U/L 16-61 [facility] CO2 [Moles/Vol] 26.0 mmol/L 21.0-32.0 [facility] Globulin (S) [Mass/Vol] 3.8 g/dL 2.2-4.2 [facility] Magnesium [Mass/Vol] 1.9 mg/dL 1.6-2.6 [facility] Urea nitrogen/Creatinine [Mass ratio] 5.8 mg/mg 10-20 [facility] Laboratory - CoagulationOrde red By: Dr. Nye on 06-15-2022 PT Coag (PPP) [Time] 13.0 s 11.7-14.9 [facility] Laboratory - Hematology and Cell countsOrdered By: Dr. Nye on 06-15-2022 Erythrocyte distribution width (RBC) [Entitic vol] 48.3 fL 35.1-43.9 [facility] Erythrocyte distribution width (RBC) [Ratio] 13.7 % 11.6-14.6 [facility] Immature granulocytes/100 WBC (Bld) 0.200 % 0.0-0.9 [facility] Comment on above: IG% - Immature Granu locytes (promyelocytes, myelocytes and metamyelocytes) > 1% indicates that a LEFT SHIFT is Present. MCH (RBC) [Entitic mass] 32.3 pg 27.0-32.0 [facility] Nucleated RBC/100 WBC (Bld) [Ratio] 0 % 0-5 [facility] MCHC Auto (RBC) [Mass/Vol]Or dered By: Dr. Nye on 06-15-2022 MCHC (RBC) [Mass/Vol] 33.8 g/dL 32-36 [facility] No Panel InformationOrdered By: Dr. Nye on 06-15-2022 Estimated Creatinine Clearance Calc 116.58 ml/min [facility] Estimated GFR (MDRD) Amer 161 mL/min >60 [facility] Comment on above: GFR Calc Estimated GFR (MDRD) Non-Af Amer 133 mL/min >60 [facility] Comment on above: Non- GFR Calc Hepatitis A IgM Antibody Negative Negative [facility] Hepatitis B Core IgM Antibody Negative Negative [facility] Hepatitis C Antibody (EIA) Non-Reactive Non Reactive [facility] Hepatitis C Antibody Comment Comment . [facility] Comment on above: Not infected with HC V unless early or acute infection issuspected (which may be delayed in an immunocompromisedindividual), or other evidence exists to indicate HCVinfection.Performed at: [facility] [id number] Director: Mendoza Tompkins PhD, Phone: [phone] Thyroid Stimulating Hormone (TSH) 2.17 uIU/mL 0.358-3.74 [facility] Platelets bldOrdered By: Dr. Nye on 06-15-2022 Platelets (Bld) [#/Vol] 103 10*3/uL 150-450 [facility] Review by pathologistOrdered By: Dr. Nye on 06-15-2022 Pathologist review Garret (Unsp spec) [Interp] Reviewed [facility] Comment on above: Mild Thrombocytopeni a.Clinical correlation necessary.Ammon Caldwell M.D. 06/18/22 Serum or plasma albumin hannah urement (mass/volume)Ordered By: Dr. Nye on 06-15-2022 Albumin [Mass/Vol] 3.6 g/dL 3.2-5.0 [facility] Serum or plasma albumin/glob ulin mass ratioOrdered By: Dr. Nye on 06-15-2022 Albumin/Globulin [Mass ratio] 0.9 {ratio} 0.9-2.4 [facility] Serum or plasma calcium hannah urement (mass/volume)Ordered By: Dr. Nye on 06-15-2022 Calcium [Mass/Vol] 8.7 mg/dL 8.5-10.1 [facility] Serum or plasma creatinine m easurement (mass/volume)Ordered By: Dr. Nye on 06-15-2022 Creatinine [Mass/Vol] 0.69 mg/dL 0.70-1.30 [facility] Comment on above: The validity of the calculated GFR & GFRAA in patients over 70 years has not been determined. Clinical correlation is essential. Serum or plasma hepatitis B virus surface antigen detection by immunoassayOrdered By: Dr. Nye on 06-15-2022 HBV surface Ag IA Ql Negative Negative [facility] Serum or plasma urea nitroge n measurement (mass/volume)Ordered By: Dr. Nye on 06-15-2022 Urea nitrogen [Mass/Vol] 4 mg/dL 7-18 [facility] Thin prep Papanicolaou smear with manual screeningOrdered By: Dr. Nye on 06-15-2022 Thin prep Papanicolaou smear with manual screening 232 U/L 15-37 [facility] Thin prep Papanicolaou smear with manual screening 7 5-15 [facility] Laboratory - Drug toxicology Ordered By: Charisma Colvin on 06-14-2022 Amphetamines Ql (U) Negative <1000 ng/mL [facility] Benzodiazepines Ql (U) Negative < 200 ng/mL [facility] Cannabinoids Screen Ql (U) Negative < 50 ng/mL [facility] Cocaine Ql (U) Negative < 300 ng/mL [facility] Opiates Ql (U) Negative < 300 ng/mL [facility] No Panel InformationOrdered By: Charisma Colvin on 06-14-2022 Ethyl Alcohol Level 472.0 mg/dL [facility] Comment on above: Critical Result(s) C alled at: 16:20:42 06/14/2022 by: ZEE MAGAÑA to KIRSTIE HOPPER. Results read back by same.The serum:whole blood ethanol ratio is approximately 1.14and varies slightly with hematocrit. Medical Alcohol reference interval and critical value innon-tolerant individuals; 50 - 100 Impairment 100 Intoxication 100 - 250 Severe Poisoning 250 - 400 Deep/possible fatal coma MDMA (Ecstasy) Screen Negative < 500 ng/mL [facility] Urine Barbiturates Screen Negative < 200 ng/mL [facility] Urine Drug Screen Comment [facility] Comment on above: CONFIRMATORY TESTING FOR ALL POSITIVE URINE DRUG SCREENRESULTS WILL ONLY BE SENT OUT UPON PHYSICIAN ORDER. VISTA Urine Drug Screen methods provide only preliminaryanalytical test results. A more specific alternate chemicalmethod must be used in order to obtain a confirmedanalytical result. Gas chromatography/mass spectrometery(GC/MS) is the preferred confirmatory method. Clinicalconsideration and professional judgement should be appliedto any drug of abuse test result, particularly whenpreliminary positive results are used. URINE TCA TESTING MUST BE ORDERED SEPARATELY. USE TESTMNEMONIC: [facility] Urine Methadone Screen Negative < 300 ng/mL [facility] Urine phencyclidine (PCP) de tectionOrdered By: Charisma Colvin on 06-14-2022 Phencyclidine Ql (U) Negative < 25 ng/mL [facility] CT Cervical spine WO contras ton 05-22-2022 IMPRESSION: No acute cervical spine abnormalities. RADIOLOGY EXAM: CT scan of the cervical spine without contrast. Dose reduction technique used: Automated exposure control and/or adjustment of the mA and/or kV according to patient size and/or use of iterative reconstruction technique. REASON FOR EXAM: Head/neck pain, fall COMPARISON: None FINDINGS: No fractures, dislocations or acute malalignment of the cervical spine. Cervical spine degenerative changes with multilevel bilateral mild and moderate neural foraminal stenoses. Minimal retrolisthesis of C5 on C6 and C6 on C7 on a degenerative basis multilevel spinal canal stenoses that are mild or moderate. Remainder unremarkable. RADIOLOGY Iglesia Cabrera MD - 05/22/2022 EXAM: CT scan of the cervical spine without contrast. Dose reduction technique used: Automated exposure control and/or adjustment of the mA and/or kV according to patient size and/or use of iterative reconstruction technique. REASON FOR EXAM: Head/neck pain, fall COMPARISON: None FINDINGS: No fractures, dislocations or acute malalignment of the cervical spine. Cervical spine degenerative changes with multilevel bilateral mild and moderate neural foraminal stenoses. Minimal retrolisthesis of C5 on C6 and C6 on C7 on a degenerative basis multilevel spinal canal stenoses that are mild or moderate. Remainder unremarkable. IMPRESSION IMPRESSION: No acute cervical spine abnormalities. [facility] Radiology Study observation (narrative) [facility] CT Cervical spine WO contras tOrdered By: Iglesia Cabrera on 05-22-2022 [facility] Work Phone: CT HEAD WITHOUT CONTRASTon 0 05-22-2022 CT HEAD WITHOUT CONTRAST EXAMINATION: CT HEAD WITHOUT CONTRAST HISTORY: Recent fall with persistent head and neck pain COMPARISON: 02/18/2017 TECHNIQUE: CT examination of the head without IV contrast. 3 mm axial unenhanced images of the brain were obtained. There are coronal and sagittal reformations. They're viewed in soft tissue and bone windows. Dose reduction techniques were achieved by using automated exposure control and/or adjustment of mA and/or kV according to patient size and/or use of iterative reconstruction technique. FINDINGS: Midline structures are satisfactorily positioned. The ventricular system is small and symmetric. There is no hemorrhage, mass, mass effect or midline shift. There is no subdural blood or fluid. There is some mild atrophy for the age group. Posterior fossa is thought to be satisfactory. Bone windows show no evidence of fracture. No other osseous abnormality is seen. Sinuses and mastoid air cells are clear. IMPRESSION: Negative appearing unenhanced CT of the brain. Normal [facility] CT Head WO contraston 2022 IMPRESSION: Negative appearing unenhanced CT of the brain. RADIOLOGY EXAMINATION: CT HEAD WITHOUT CONTRAST HISTORY: Recent fall with persistent head and neck pain COMPARISON: 02/18/2017 TECHNIQUE: CT examination of the head without IV contrast. 3 mm axial unenhanced images of the brain were obtained. There are coronal and sagittal reformations. They're viewed in soft tissue and bone windows. Dose reduction techniques were achieved by using automated exposure control and/or adjustment of mA and/or kV according to patient size and/or use of iterative reconstruction technique. FINDINGS: Midline structures are satisfactorily positioned. The ventricular system is small and symmetric. There is no hemorrhage, mass, mass effect or midline shift. There is no subdural blood or fluid. There is some mild atrophy for the age group. Posterior fossa is thought to be satisfactory. Bone windows show no evidence of fracture. No other osseous abnormality is seen. Sinuses and mastoid air cells are clear. RADIOLOGY Kari Evnas DO - 05/22/2022 EXAMINATION: CT HEAD WITHOUT CONTRAST HISTORY: Recent fall with persistent head and neck pain COMPARISON: 02/18/2017 TECHNIQUE: CT examination of the head without IV contrast. 3 mm axial unenhanced images of the brain were obtained. There are coronal and sagittal reformations. They're viewed in soft tissue and bone windows. Dose reduction techniques were achieved by using automated exposure control and/or adjustment of mA and/or kV according to patient size and/or use of iterative reconstruction technique. FINDINGS: Midline structures are satisfactorily positioned. The ventricular system is small and symmetric. There is no hemorrhage, mass, mass effect or midline shift. There is no subdural blood or fluid. There is some mild atrophy for the age group. Posterior fossa is thought to be satisfactory. Bone windows show no evidence of fracture. No other osseous abnormality is seen. Sinuses and mastoid air cells are clear. IMPRESSION IMPRESSION: Negative appearing unenhanced CT of the brain. [facility] Radiology Study observation (narrative) [facility] CT Head WO contrastOrdered B y: Kari Evans on 05-22-[address] [facility] [address] SPINE CERVICAL WITHOUT CO NTRASTon 05-22-2022 CT SPINE CERVICAL WITHOUT CONTRAST EXAM: CT scan of the cervical spine without contrast. Dose reduction technique used: Automated exposure control and/or adjustment of the mA and/or kV according to patient size and/or use of iterative reconstruction technique. REASON FOR EXAM: Head/neck pain, fall COMPARISON: None FINDINGS: No fractures, dislocations or acute malalignment of the cervical spine. Cervical spine degenerative changes with multilevel bilateral mild and moderate neural foraminal stenoses. Minimal retrolisthesis of C5 on C6 and C6 on C7 on a degenerative basis multilevel spinal canal stenoses that are mild or moderate. Remainder unremarkable. IMPRESSION: No acute cervical spine abnormalities. Normal [facility] XR RIBS BILATERALon 05-23-19 23 XR RIBS BILATERAL EXAM: XR RIBS BILATE RAL HISTORY: Thoracic trauma. Bilateral rib pain, right greater than left. Fall. COMPARISON: 05/22/2008. TECHNIQUE: 6 views of the bilateral ribs. FINDINGS: There is no pneumothorax or pleural effusion. The cardiomediastinal configuration is within normal limits. There are nondisplaced fractures involving the lateral aspects of the right ninth, eighth, and seventh ribs. IMPRESSION: Nondisplaced fractures involving the lateral aspects of the right seventh, eighth, and ninth ribs. There is no pneumothorax or significant pleural effusion. Normal [facility] XR Ribs - bilateral Viewson 05-22-2022 IMPRESSION: Nondisplaced fractures involving the lateral aspects of the right seventh, eighth, and ninth ribs. There is no pneumothorax or significant pleural effusion. RADIOLOGY EXAM: XR RIBS BILATE RAL HISTORY: Thoracic trauma. Bilateral rib pain, right greater than left. Fall. COMPARISON: 05/22/2008. TECHNIQUE: 6 views of the bilateral ribs. FINDINGS: There is no pneumothorax or pleural effusion. The cardiomediastinal configuration is within normal limits. There are nondisplaced fractures involving the lateral aspects of the right ninth, eighth, and seventh ribs. RADIOLOGY Alicia, Rob Robins MD - 05/22/2022 EXAM: XR RIBS BILATERAL HISTORY: Thoracic trauma. Bilateral rib pain, right greater than left. Fall. COMPARISON: 05/22/2008. TECHNIQUE: 6 views of the bilateral ribs. FINDINGS: There is no pneumothorax or pleural effusion. The cardiomediastinal configuration is within normal limits. There are nondisplaced fractures involving the lateral aspects of the right ninth, eighth, and seventh ribs. IMPRESSION IMPRESSION: Nondisplaced fractures involving the lateral aspects of the right seventh, eighth, and ninth ribs. There is no pneumothorax or significant pleural effusion. [facility] Radiology Study observation (narrative) [facility] XR Ribs - bilateral ViewsOrd ered By: Rob Vargas on 05-22-2022 [facility] Work Phone: Blood type and Indirect anti body screen panel (Bld)on 02-20-2022 ABO and Rh group Nom (Bld) Blood group A Rh(D) positive [facility] Blood group antibody screen Ql Negative [facility] Specimen Expires 02/23/2022 23:59 EST [facility] XR OR L-Spine 2-3 Viewson Fluoroscopic images as above. Please see operative report for further details. [employer] Workstation ID: [id number] [employer] EXAMINATION: XR OR L-SPINE 2-3 VIEWS HISTORY: ORDERING SYSTEM PROVIDED HISTORY: Laminectomy, DRG Stimulator Insertion, TECHNOLOGIST PROVIDED HISTORY: Illness/Other Reason for exam: spinal cord stimulator removal and replacement, foot pain Encounter Type: Ongoing Additional signs and symptoms: . Fluoro dose in mGy: 229.58 ORDERING SYSTEM PROVIDED DIAGNOSIS CODES: COMPARISON: None. TECHNIQUE: Fluoro dose in Ka,r mGy: 229.58 17 fluoroscopic spot films of the lower lumbar spine were submitted in AP and lateral projections from the surgical procedure. Fluoroscopy time is 10.87 minutes. FINDINGS: Fluoroscopic images were obtained for spinal cord stimulator electrode placement with final images showing lead placement at the level of L3-4 and L5-S1. [facility] Gama Sultana Ala, DO - 02/20/2022 EXAMINATION: XR OR L-SPINE 2-3 VIEWS HISTORY: ORDERING SYSTEM PROVIDED HISTORY: Laminectomy, DRG Stimulator Insertion, TECHNOLOGIST PROVIDED HISTORY: Illness/Other Reason for exam: spinal cord stimulator removal and replacement, foot pain Encounter Type: Ongoing Additional signs and symptoms: . Fluoro dose in mGy: 229.58 ORDERING SYSTEM PROVIDED DIAGNOSIS CODES: COMPARISON: None. TECHNIQUE: Fluoro dose in Ka,r mGy: 229.58 17 fluoroscopic spot films of the lower lumbar spine were submitted in AP and lateral projections from the surgical procedure. Fluoroscopy time is 10.87 minutes. FINDINGS: Fluoroscopic images were obtained for spinal cord stimulator electrode placement with final images showing lead placement at the level of L3-4 and L5-S1. IMPRESSION: Fluoroscopic images as above. Please see operative report for further details. [employer] Workstation ID: [id number] [facility] Radiology Study observation (narrative) [facility] XR OR L-Spine 2-3 ViewsOrder ed By: Gama Sultana on 02-20-2022 [facility] Work Phone: No Panel Informationon 02-21 1. Multilevel cervical, lower thoracic and lower lumbar spondylitic changes as described. Within the thoracic spine this is most apparent at T11-T12 and T12-L1 and with the lumbar spine most apparent at L5-S1. 2. Prior dorsal column stimulator device placement. 3. No acute osseous abnormality involving the thoracic and lumbar spine otherwise noted. [employer] Workstation ID: [id number] [employer] RIS EXAMINATION: XR THORACIC SPINE 3 VIEWS (STANDARD); XR LUMBAR SPINE 2-3 VIEWS (STANDARD) 02/21/2021 10:18 am HISTORY: ORDERING SYSTEM PROVIDED HISTORY: status post spinal cord stimulator, TECHNOLOGIST PROVIDED HISTORY: Injury/Trauma Reason for exam: BACK PAIN S/P FALL, HX OF SPINAL CORD STIMULATOR Cancer History: n Surgery, RadiationHistory: n Encounter Type: Initial Mechanism of injury: FALL ORDERING SYSTEM PROVIDED DIAGNOSIS CODES: Z96.89 Status post insertion of spinal cord stimulator COMPARISON: PA and lateral chest 11/01/2020. FINDINGS: THORACIC SPINE: Standing AP, lateral and swimmer's type views were obtained. A dorsal column stimulator device is identified. The lead tip is noted near the T11 level. Multilevel lower cervical and thoracic spondylitic changes are identified. Cervical spondylitic changes are noted predominantly at C2-C3 through C5-C6 levels. Thoracic spondylitic changes are most apparent at T11-T12 and T12-L1 levels. The pedicles are intact. No acute fracture or subluxation noted. Heart size is normal. Visualized portions of the ribs and shoulder girdles are otherwise intact. LUMBAR SPINE: Standing AP, lateral and coned-down type views were obtained. Right-sided stimulator device with lead tip noted near the T11 level. Lower thoracic and lower lumbar spondylitic changes are identified again. This is most apparent at T11-T12, T12-L1 and L5-S1 levels. There is milder posterior stomach disc space narrowing at L4-L5. There is no acute fracture or subluxation. The lower ribs and upper pelvis are intact. GE RIS Mustapha Huffman M D - 02/21/2021 EXAMINATION: XR THORACIC SPINE 3 VIEWS (STANDARD); XR LUMBAR SPINE 2-3 VIEWS (STANDARD) 02/21/2021 10:18 am HISTORY: ORDERING SYSTEM PROVIDED HISTORY: status post spinal cord stimulator, TECHNOLOGIST PROVIDED HISTORY: Injury/Trauma Reason for exam: BACK PAIN S/P FALL, HX OF SPINAL CORD STIMULATOR Cancer History: n Surgery, RadiationHistory: n Encounter Type: Initial Mechanism of injury: FALL ORDERING SYSTEM PROVIDED DIAGNOSIS CODES: Z96.89 Status post insertion of spinal cord stimulator COMPARISON: PA and lateral chest 11/01/2020. FINDINGS: THORACIC SPINE: Standing AP, lateral and swimmer's type views were obtained. A dorsal column stimulator device is identified. The lead tip is noted near the T11 level. Multilevel lower cervical and thoracic spondylitic changes are identified. Cervical spondylitic changes are noted predominantly at C2-C3 through C5-C6 levels. Thoracic spondylitic changes are most apparent at T11-T12 and T12-L1 levels. The pedicles are intact. No acute fracture or subluxation noted. Heart size is normal. Visualized portions of the ribs and shoulder girdles are otherwise intact. LUMBAR SPINE: Standing AP, lateral and coned-down type views were obtained. Right-sided stimulator device with lead tip noted near the T11 level. Lower thoracic and lower lumbar spondylitic changes are identified again. This is most apparent at T11-T12, T12-L1 and L5-S1 levels. There is milder posterior stomach disc space narrowing at L4-L5. There is no acute fracture or subluxation. The lower ribs and upper pelvis are intact. IMPRESSION: 1. Multilevel cervical, lower thoracic and lower lumbar spondylitic changes as described. Within the thoracic spine this is most apparent at T11-T12 and T12-L1 and with the lumbar spine most apparent at L5-S1. 2. Prior dorsal column stimulator device placement. 3. No acute osseous abnormality involving the thoracic and lumbar spine otherwise noted. [employer] Workstation ID: [id number] [facility] Radiology Study observation (narrative) [facility] No Panel InformationOrdered By: Mustapha Huffman on 02-21-2021 [facility] Work Phone: XR OR T-Spine 1 Viewon 12-02 FINDINGS/ Fluoroscopy was carried out, without a radiologist in attendance, to provide patient care necessary for a specific diagnostic or therapeutic procedure performed by a nonradiologist. A report by the performing physician should be available in the medical record. Fluoro time in minutes: 12 seconds Workstation ID: [id number] [employer] RIS EXAMINATION: XR OR T-SPINE 1 VIEW HISTORY: Neurostimulator placement COMPARISON: None GE RIS Mary Luong MD - 12/02/2020 EXAMINATION: XR OR T-SPINE 1 VIEW HISTORY: Neurostimulator placement COMPARISON: None IMPRESSION: FINDINGS/ Fluoroscopy was carried out, without a radiologist in attendance, to provide patient care necessary for a specific diagnostic or therapeutic procedure performed by a nonradiologist. A report by the performing physician should be available in the medical record. Fluoro time in minutes: 12 seconds Workstation ID: [id number] [facility] Radiology Study observation (narrative) [facility] XR OR T-Spine 1 ViewOrdered By: Mary Luong on 12-02-2020 [facility] Work Phone: COVID-19, MOLECULARon 2020 SARS-CoV-2 (COVID-19) RNA LASHANDA+probe Ql (Unsp spec) Not detected Normal Not Detected [facility] Comment on above: Result Comment: This test was performed under the FDA's Emergency Use Authorization (EUA). Testing was performed using the Stevenson SARS-CoV-2 RT-PCR assay on the Shikha Stevenson 6800 System. This test has not been approved for use in asymptomatic patients and its performance in this patient population has not been evaluated. Negative results do not rule out the presence of SARS-CoV-2/COVID-19. Fact sheets for this EUA can be found at the following links: For Healthcare Providers: https://www.fda.gov/media/841408/download For Patients: https://www.fda.gov/media/302289/download Performed By: #### L [id number] #### [facility] [address] [place] [address] Sean Sears M.D. [id number] AIRWAY ETTon 11-15-2020 MATT Ramos 11/15/2020 10:32 AM ETT Airway Mask ventilation: ventilated by mask Technique: direct laryngoscopy and intubating stylet Type: cuffed Tube size: 8 mm Final laryngoscope: Mac 4 Location: oral Final grade: 1 Insertion attempts: 1 Placement verification: end tidal CO2, auscultation and symmetrical chest wall movement Secured at: 24 cm (measured from the lips) Secured by: tape Bite block: none Lip/tooth/tongue trauma: no Comments: Fran TABOR [facility] COVID-19, MOLECULARon 2020 SARS-CoV-2 (COVID-19) RNA LASHANDA+probe Ql (Unsp spec) Not detected Normal Not Detected [facility] Comment on above: Result Comment: This test was performed under the FDA's Emergency Use Authorization (EUA). Testing was performed using the Stevenson SARS-CoV-2 RT-PCR assay on the Shikha Stevenson 6800 System. This test has not been approved for use in asymptomatic patients and its performance in this patient population has not been evaluated. Negative results do not rule out the presence of SARS-CoV-2/COVID-19. Fact sheets for this EUA can be found at the following links: For Healthcare Providers: https://www.fda.gov/media/244889/download For Patients: https://www.fda.gov/media/449462/download Performed By: #### L [id number] #### [facility] [address] [place] [address] Sean Sears M.D. [id number] Basic metabolic 2000 panelon 11-01-2020 Anion gap [Moles/Vol] 17 mmol/L 10 - 2 0 mmol/L [facility] Calcium [Mass/Vol] 8.5 mg/dL 8.4 - 10. 2 mg/dL [facility] Chloride [Moles/Vol] 100 mmol/L 98 - 10 8 mmol/L [facility] Creatinine [Mass/Vol] 0.69 mg/dL 0.50 - 1.30 [facility] GFR/1.73 sq M.predicted CKD-EPI (S/P/Bld) [Vol rate/Area] 116 >=60 mL/min/1.73 m2 [facility] Glucose [Mass/Vol] 135 mg/dL High 65 - 99 mg/dL [facility] HCO3 [Moles/Vol] 22 mmol/L 21 - 32 mmol/L [facility] Interpretation and review of laboratory results Abnormal [facility] Potassium [Moles/Vol] 3.6 mmol/L 3.5 - 5.1 mmol/L [facility] Sodium [Moles/Vol] 135 mmol/L 135 - 145 mmol/L [facility] Urea nitrogen [Mass/Vol] 2 mg/dL Low 8 - 25 mg/dL [facility] Urea nitrogen/Creatinine [Mass ratio] 2.9 mg/mg Low [facility] Comment on above: Unable to calculate; a result component is outside measurable limits. The eGFR should be u sed for monitoring renal function only and not for medication dosing. [facility] Blood type and Indirect anti body screen panel (Bld)on 11-01-2020 ABO and Rh group Nom (Bld) Blood group A Rh(D) positive [facility] Blood group antibody screen Ql Negative [facility] Specimen Expires 11/04/2020 23:59 EST [facility] CBC panel Auto (Bld)on 11-01 Erythrocyte distribution width (RBC) [Entitic vol] 13.0 % 11.6 - 14.8 % [facility] Hematocrit (Bld) [Volume fraction] 40.2 % Low 41.0 - 53.0 % [facility] Hemoglobin (Bld) [Mass/Vol] 13.9 g/dL 13.5 - 17.5 g/dL [facility] Interpretation and review of laboratory results Abnormal [facility] MCH (RBC) [Entitic mass] 33.2 pg 26.0 - 34.0 pg [facility] MCHC (RBC) [Mass/Vol] 34.6 g/dL 31.0 - 37.0 g/dL [facility] MCV (RBC) [Entitic vol] 95.9 fL 80.0 - 100.0 fL [facility] Nucleated RBC (Bld) [#/Vol] 0.00 10*3/uL [facility] Nucleated RBC/100 WBC (Bld) [Ratio] 0.0 % [facility] Platelet mean volume (Bld) [Entitic vol] 9.8 fL 9.4 - 12.4 fL [facility] Platelets (Bld) [#/Vol] 164 10*3/uL [facility] RBC (Bld) [#/Vol] 4.19 10*6/uL [facility] WBC (Bld) [#/Vol] 4.62 10*3/uL [facility] XR CHEST AP/PA AND LATon No active disease in the chest. Workstation ID: [id number] [facility] EXAMINATION: XR CHEST AP/PA AND LAT HISTORY: ORDERING SYSTEM PROVIDED HISTORY: pre-op clearance, TECHNOLOGIST PROVIDED HISTORY: Illness/Other Reason for exam: HTN, PRE-OP, SMOIKING Cancer History: n Surgery, RadiationHistory: n Encounter Type: Initial Additional signs and symptoms: N ORDERING SYSTEM PROVIDED DIAGNOSIS CODES: Z01.818 Pre-op testing COMPARISON: 05/22/2008 FINDINGS: Lungs are clear. Heart size is stable. No pleural effusion or pneumothorax. Osseous structures are unremarkable. [facility] King Flores MD - 11/01/2020 EXAMINATION: XR CHEST AP/PA AND LAT HISTORY: ORDERING SYSTEM PROVIDED HISTORY: pre-op clearance, TECHNOLOGIST PROVIDED HISTORY: Illness/Other Reason for exam: HTN, PRE-OP, SMOIKING Cancer History: n Surgery, RadiationHistory: n Encounter Type: Initial Additional signs and symptoms: N ORDERING SYSTEM PROVIDED DIAGNOSIS CODES: Z01.818 Pre-op testing COMPARISON: 05/22/2008 FINDINGS: Lungs are clear. Heart size is stable. No pleural effusion or pneumothorax. Osseous structures are unremarkable. IMPRESSION: No active disease in the chest. Workstation ID: [id number] [facility] Radiology Study observation (narrative) [facility] XR CHEST AP/PA AND LATOrdere d By: King Flores on 11-01-2020 [facility] Work Phone: MR LUMBAR SPINE WITHOUT CONT RASTOrdered By: Rylie Villarreal on 07-25-2020 1. L5-S1: A large broad-based disc extrusion and mild facet arthrosis contribute to mild central spinal canal stenosis, stenosis of the left greater than right lateral recesses and severe bilateral foraminal stenosis, with contact of the bilateral L5 and S1 nerve roots. 2. L4-5: A central/right paracentral/lateral recess disc extrusion with mild inferior migration and mild facet arthrosis results in mild effacement of the ventral thecal sac, mild stenosis of the right lateral recess, and mild right foraminal stenosis. 3. Moderate T11-12 through L1-2 degenerative changes, without significant central spinal canal stenosis or foraminal stenosis. Workstation ID: [id number] [facility] EXAMINATION: MR LUMB AR SPINE WITHOUT CONTRAST HISTORY: ORDERING SYSTEM PROVIDED HISTORY: CRPS of right leg; low back pain, TECHNOLOGIST PROVIDED HISTORY: Illness/Other Reason for exam: CRPS of right leg; low back pain, Leg pain, bilateral, Chronic bilateral low back pain without sciatica Encounter Type: Ongoing Additional signs and symptoms: no ORDERING SYSTEM PROVIDED DIAGNOSIS CODES: M79.604 Leg pain, bilateral M79.605 Leg pain, bilateral M54.5 Chronic bilateral low back pain without sciatica G89.29 Chronic bilateral low back pain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 kept for 1 week, if the sample is adequate. Confirmation testing can be initiated by calling the lab within 1 week. [facility] Hepatic Function Panel (LFT) on 08-08-2018 Albumin mass conc 4.3 g/dL 3.2 - 5.2 g/dL [facility] ALP enzyme act/vol 48 U/L 40 - 150 U/L [facility] ALT enzyme act/vol 74 U/L High 14 - 65 U/L [facility] AST enzyme act/vol 73 U/L High 0 - 45 U/L [facility]th Bilirubin mass conc 0.2 mg/dL 0 - 1.3 mg/dL [facility] Bilirubin.conjugated mass conc mg/dL 0 - 0.4 mg/dL [facility] Protein mass conc 7.8 g/dL 6 - 8 g/dL [facility] Lip[facility] 08-08-2018 Interpretation and review of laboratory results Normal [facility] Lipase enzyme act/vol 220 U/L 73 - 393 U/L [facility] Otheron 08-08-2018 Interpretation and review of laboratory results Abnormal [facility] PT/INRon 08-08-2018 INR Coag RelTime (PPP) 1.0 {INR} [facility] Interpretation and review of laboratory results Normal [facility] Prothrombin time (PT) Coag time (PPP) 12.4 s [facility] During the induction phase of oral anticoagulation, the INR may not reflect the anticoagulation status of the patient. Therapeutic ranges for INR's are: Most clinical situations: INR 2.0-3.0 Mechanical Prosthetic Valve: INR 2.5-3.5 Critical: INR >5.0 [facility] ALCOHOL (ETHANOL),BLOODon Ethanol mass conc 187 mg/dL [facility] Comment on above: INTOXICATION >80 MG/DL FATAL >400 MG/DL CBC, EDIF, PLATELETon 2018 ABSOLUTE BASOPHIL COUNT 0.0 X10 [facility] Basophils/100 WBC (Bld) 0.4 % 0 - 2 % [facility] Differential cell count method Nom (Bld) AUTO DIFF % [facility] Eosinophils #/vol (Bld) 0.00 10*3/uL X10 [facility] Eosinophils/100 WBC (Bld) 0.2 % 0 - 11 % [facility] Erythrocyte distribution width Ratio (RBC) 14.1 % 11.5 - 14.5 % [facility] Hematocrit Volume Fraction (Bld) 41.1 % Low 42 - 52 % [facility] Hemoglobin mass conc (Bld) 14.5 g/dL [facility] Lymphocytes #/vol (Bld) 1.00 10*3/uL X10 [facility] Lymphocytes/100 WBC (Bld) 14.8 % Low 20 - 55 % [facility] MCH Entitic mass (RBC) 34.0 pg 26 - 35 PG [facility] [employer] MCHC mass conc (RBC) 35.3 g/dL [facility] MCV Entitic volume (RBC) 96.2 fL [facility] [employer] Monocytes #/vol (Bld) 0.6 10*3/uL X10 [facility] Monocytes/100 WBC (Bld) 9.8 % 0 - 10 % [facility] Neutrophils #/vol (Bld) 4.9 10*3/uL [facility] Neutrophils/100 WBC (Bld) 74.8 % 37 - 75 % [facility] [employer] Platelet mean volume Entitic volume (Bld) 7.8 fL [facility] [employer] Platelets #/vol (Bld) 151 10*3/uL [facility] RBC #/vol (Bld) 4.27 10*6/uL [facility] WBC #/vol (Bld) 6.6 10*3/uL [facility] [employer] CHEM 7 (LYTES,BUN,CREA,GLUC) on 07-22-2018 Chloride molar conc 93 mmol/L Low [facility] CO[facility] molar conc 21 mmol/L Low [facility] Creatinine mass conc 0.63 mg/dL Low [facility] [employer] ([employer] [facility] GFR/1.73 sq M predicted among blacks MDRD vol rate/area (S/P/Bld) mL/min/{1.73_m2} ml/min/1.73sq .m [facility] [employer] GFR/1.73 sq M predicted among non-blacks MDRD vol rate/area (S/P/Bld) mL/min/{1.73_m2} ml/min/1.73sq .m [facility] [employer] GFR/1.73 sq M predicted among non-blacks MDRD vol rate/area (S/P/Bld) Average GFR for 40-49 years old = 99. [facility] Comment on above: Chronic Kidney disea se, GFR = <60. Kidney failure, GFR = <15. The GFR estimate is not adjusted for extreme body surface area or acute process, nor has it been validated for women or ethnic groups other than and . Glucose fasting mass conc 96 mg/dL [facility] [employer] Comment on above: NORMAL <100 mg/dL PREDIABETES 101-126 mg/dL DIABETES 126 mg/dL or higher Potassium molar conc 3.7 mmol/L [facility] [employer] [facility] Sodium molar conc 132 mmol/L Low [employer] Urea nitrogen mass conc 14 mg/dL [employer] HEPATIC FUNCTION PANELon Albumin mass conc 4.9 g/dL [employer] ALP enzyme act/vol 48 U/L [facility] ALT enzyme act/vol 94 U/L High DTT [facility] AST enzyme act/vol 130 U/L High DTT [facility] Bilirubin mass conc 0.9 mg/dL [employer] Bilirubin.direct mass conc 0.2 mg/dL [employer] Protein mass conc 8.3 g/dL High [employer] LIPASEon 07-22-2018 Lipase enzyme act/vol 37 U/L 23 - 300 U/L [facility] Otheron 07-22-2018 Interpretation and review of laboratory results Abnormal [employer] POCT OCCULT BLOOD STOOLon Hemoglobin.gastrointe stinal Ql (St) + per Rosa Elena WILSON amprice Interpretation and review of laboratory results Normal amprice PROTIME-INRon 07-22-2018 INR Coag RelTime (PPP) 0.98 {INR} amprice Comment on above: 2.0-3.0 THERAPEUTIC RANGE 2.5-3.5 PROSTHETIC VALVE RANGE Prothrombin time (PT) Coag time (PPP) 12.9 s amprice TOXICOLOGY DRUG SCREEN, URIN Cem 07-22-2018 Amphetamine mass conc (U) Negative NEGATIVE NG/ML amprice Comment on above: <500 ng/ml CUTOFF Barbiturates Screen Ql (U) Negative NEGATIVE NG/ML amprice Comment on above: <200 ng/ml CUTOFF Benzodiazepines Ql (U) Negative NEGATIVE NG/ML amprice Comment on above: <150 ng/ml CUTOFF Benzoylecgonine Ql (U) Negative NEGATIVE NG/ML amprice Comment on above: <150 ng/ml CUTOFF Buprenorphine Ql (U) Negative NEGATIV E NG/ML amprice Comment on above: <10 ng/ml CUTOFF Cannabinoids Screen Ql (U) Negative NEGATIVE NG/ML amprice Comment on above: <50 ng/ml CUTOFF Methadone Screen Ql (U) Negative NEGATIVE NG/ML amprice Comment on above: <200 ng/ml CUTOFF Methamphetamine mass conc (U) Negative NEGATIVE NG/ML amprice Comment on above: <500 ng/ml CUTOFF Opiates Screen Ql (U) Negative NEGATI VE NG/ML amprice Comment on above: <100 ng/ml CUTOFF Oxycodone Ql (U) Negative NEGATIVE NG/ML amprice Comment on above: <100 ng/ml CUTOFF Phencyclidine Screen method >25 ng/mL Ql (U) Negative NEGATIVE NG/ML amprice Comment on above: <25 ng/ml CUTOFF Propoxyphene + Norpropoxyphene Screen Ql (U) Negative NEGATIVE NG/ML amprice Comment on above: <300 ng/ml CUTOFF Tricyclic antidepressants Screen Ql (U) Negative NEGATIVE NG/ML amprice Comment on above: <300 ng/ml CUTOFF TROPONINon 07-22-2018 Troponin I.cardiac mass conc ng/mL 0 - 0.08 ng/mL amprice TYPE AND SCREEN - POSSIBLE T RANSFUSIONon 07-22-2018 ABO and Rh group Nom (Bld ) Positive amprice ARM BAND NUMBER [id number] amprice Blood group antibody screen Ql Negative amprice Blood product units requested num (BPU) 0 amprice EXPIRATION DATE 07/25/2018 amprice URINALYSIS, MACROon 07-23-19 19 Bilirubin Ql (U) Negative NEGATIVE amprice Clarity Nom (U) CLEAR CLEAR amprice Color Nom (U) YELLOW YELLOW amprice Glucose Test strip mass conc (U) Negative NEGATIVE mg/dl amprice Hemoglobin Ql (U) Negative NEGATIVE amprice Interpretation and review of laboratory results Abnormal amprice Ketones mass conc (U) Negative NEGATI VE mg/dl amprice Leukocyte esterase Test strip Ql (U) Negative NEGATIVE amprice Nitrite Ql (U) Negative NEGATIVE amprice pH (U) 6.5 [pH] amprice Protein Ql (U) Negative NEGATIVE mg/dl amprice Specific gravity Relative Density (U) <1.005 Low amprice Urobilinogen mass conc (U) 0.2 mg/dl 0.2 - 1 mg/dl amprice LACERATION REPAIRon 07-02-19 19 Mary Reed MD 07/01/2018 4:23 PM Wound extent: Lac Repair Date/Time: 07/01/2018 4:19 [...] the procedure well with no immediate complications [facility] Basic Metabolic Panelon 05-18 Calcium 8.8 mg/dL Normal 8.4-10.2 [facility] Comment on above: Performed By: #### D MARY ####Unless otherwise noted, all testing performed by [place] [phone]: [id number] Director: Jesus Najera M.D. Chloride 106 mmol/L Normal 98-108 [facility] Comment on above: Performed By: #### D MARY ####Unless otherwise noted, all testing performed by [address] [phone]: [id number] Director: Jesus Najera M.D. CO2 25 mmol/L Normal 21-32 [facility] Comment on above: Performed By: #### D MARY ####Unless otherwise noted, all testing performed by [address] [phone]: [id number] Director: Jesus Najera M.D. Creatinine 0.77 mg/dL Normal 0.50-1.30 [facility] Comment on above: Performed By: #### D RUGSCRU ####Unless otherwise noted, all testing performed by [address] [phone]: [id number] Director: Jesus Najera M.D. eGFR (black) mL/min/{1.73_m2} Normal [facility] Comment on above: Result Comment: Afri can Tajik GFR Calc Performed By: #### D RUGSCRU ####Unless otherwise noted, all testing performed by [address] [phone]: [id number] Director: Jesus Najera M.D. eGFR (non-black) mL/min/{1.73_m2} Normal [facility] Comment on above: Result Comment: Non- GFR CalceGFR is an estimated Glomerular Filtration Rate based on the valueof the patient's serum creatinine. In outpatients, eGFR should be usedas a helpful tool in screening for CKD. In inpatients or patients withacute renal failure, eGFR represents the GFR at the moment of the drawand should be used with caution. Performed By: #### D RUGSCRU ####Unless otherwise noted, all testing performed by [address] [phone]: [id number] Director: Jesus Najera M.D. Glucose mass conc 112 mg/dL High 70-99 [facility] Comment on above: Result Comment: This test result might be falsely depressed or falsely elevated onsamples drawn from patients taking Sulfasalazine and Sulfapyridine.Venipuncture should occur prior to taking either of these drugs. Performed By: #### D RUGSCRU ####Unless otherwise noted, all testing performed by [address], [place] [phone]: [id number] Director: Jesus Najera M.D. Potassium molar conc 3.6 mmol/L Normal 3.5-5.1 [facility] Comment on above: Performed By: #### D MARY ####Unless otherwise noted, all testing performed by [address] [phone]: [id number] Director: Jesus Najera M.D. Sodium 138 mmol/L Normal 135-145 [facility] Comment on above: Performed By: #### D MARY ####Unless otherwise noted, all testing performed by [place] [phone]: [id number] Director: Jesus Najera M.D. Urea nitrogen 4 mg/dL Low 8-25 [facility] Comment on above: Performed By: #### D MARY ####Unless otherwise noted, all testing performed by [place] [phone]: [id number] Director: Jesus Najera M.D. Acetaminophenon 06-13-2017 Acetaminophen mass conc < 2.0 Low 10.0-30.0 [facility] Comment on above: Performed By: #### C BCDIF, CMET, EDCTNI, ACTMN, LIPASE ####Unless otherwise noted, all testing performed by [place] [phone]: [id number] Director: Jesus Najera M.D. Acetaminophen Levelon 2017 Acetaminophen < 2.0 Low 10.0 - 30.0 mcg/mL [facility] Interpretation and review of laboratory results Abnormal Invalid Interpretation Code [facility] Alcohol, Medicalon 8 Ethanol 0.334 G% High 0.0 - 0.740145 [facility] Ethanol 0.334 G% High 0.0-0.646736 [facility] Comment on above: Performed By: #### A LC ####Unless otherwise noted, all testing performed by [address] [phone]: [id number] Director: Jesus Najera M.D. Interpretation and review of laboratory results Abnormal Invalid Interpretation Code [facility] Ammoniaon 06-13-2017 Ammonia 30 Umol/L Invalid Interpretation Code [facility] Ammonia 30 Umol/L Normal [facility] Comment on above: Result Comment: This test result might be falsely depressed or falsely elevated onsamples drawn from patients taking Sulfasalazine and Sulfapyridine.Venipuncture should occur prior to taking either of these drugs. Performed By: #### D RUGSCRU ####Unless otherwise noted, all testing performed by [address] [phone]: [id number] Director: Jesus Najera M.D. CBC and Differentialon 06-13 Basophils 1.3 % Invalid Interpretation Code [facility] Basophils 0.1 K/mcL Invalid Interpretation Code 0 - 0.2 [facility] Eosinophils 0.1 K/mcL Invalid Interpretation Code 0 - 0.5 [facility] Erythrocytes (RBC) 4.33 M/mcL Invalid Interpretation Code 4.0 - 5.5 [facility] Hematocrit (HCT) 43.6 % Normal 37.9-49.2 [facility] Comment on above: Performed By: #### C BCDIF, CMET, EDCTNI, ACTMN, LIPASE ####Unless otherwise noted, all testing performed by [address], [place] [phone]: [id number] Director: Jesus Najera M.D. Hemoglobin (HGB) 14.7 g/dL Normal 12.9-16.9 [facility] Comment on above: Performed By: #### C BCDIF, CMET, EDCTNI, ACTMN, LIPASE ####Unless otherwise noted, all testing performed by [address] [phone]: [id number] Director: Jesus Najera M.D. Lymphocytes 1.6 K/[facility] Invalid Interpretation Code 0.9 - 3.6 [facility] MCH 33.9 pg Normal 27.7-34.6 [facility] Comment on above: Performed By: #### C BCDIF, CMET, EDCTNI, ACTMN, LIPASE ####Unless otherwise noted, all testing performed by [address] [phone]: [id number] Director: Jesus Najera M.D. MCHC 33.7 g/dL Normal 32.9-35.5 [facility] Comment on above: Performed By: #### C BCDIF, CMET, EDCTNI, ACTMN, LIPASE ####Unless otherwise noted, all testing performed by [address] [phone]: [id number] Director: Jesus Najera M.D. MCV 100.6 fL High 82.8-99.3 [facility] Comment on above: Performed By: #### C BCDIF, CMET, EDCTNI, ACTMN, LIPASE ####Unless otherwise noted, all testing performed by [address] [phone]: [id number] Director: Jesus Najera M.D. Monocytes 0.7 K/mcL High 0.2 - 0.6 [facility] Neutrophils 2.3 K/mcL Invalid Interpretation Code 1.4 - 6.8 [facility] Platelet mean volume (PMV) 8.4 fL Normal 6.6-10.8 [facility] Comment on above: Performed By: #### C BCDIF, CMET, EDCTNI, ACTMN, LIPASE ####Unless otherwise noted, all testing performed by [address] [phone]: [id number] Director: Jesus Najera M.D. Platelets 141 K/mcL Invalid Interpretation Code 139 - 354 [facility] RDW-CA 14.6 % High 10-14.3 [facility] Comment on above: Performed By: #### C BCDIF, CMET, EDCTNI, ACTMN, LIPASE ####Unless otherwise noted, all testing performed by [address] [phone]: [id number] Director: Jesus Najera M.D. Segmented Neut 48.7 % Invalid Interpretation Code [facility] T8 suppressor/100 cells 2.0 10*3/uL Invalid Interpretation Code [facility] T8 suppressor/100 cells 33.2 10*3/uL Invalid Interpretation Code [facility] T8 suppressor/100 cells 14.8 10*3/uL Invalid Interpretation Code [facility] WBC (Leukocytes) 4.7 K/mcL Invalid Interpretation Code 3.6 - 10.4 [facility] CBC with Diffon 06-13-2017 Basophils Auto #/vol (Bld) 0.0 K/mcL Normal 0-0.2 [facility] Comment on above: Performed By: #### D RUGSCRU ####Unless otherwise noted, all testing performed by [address], [place] [phone]: [id number] Director: Jesus Najera M.D. Basophils/100 WBC Auto (Bld) 0.7 % Normal [facility] Comment on above: Performed By: #### D RUGSCRU ####Unless otherwise noted, all testing performed by [address] [phone]: [id number] Director: Jesus Najera M.D. Eosinophils 0.1 K/mcL Normal 0-0.5 [facility] Comment on above: Performed By: #### D RUGSCRU ####Unless otherwise noted, all testing performed by [address]CLIA: [id number] Director: Jesus Najera M.D. Eosinophils/100 leukocytes 2.6 % Normal [facility] Comment on above: Performed By: #### D RUGSCRU ####Unless otherwise noted, all testing performed by [address]CLIA: [id number] Director: Jesus Najera M.D. Erythrocyte distribution width Auto Ratio (RBC) 14.7 % High 10-14.3 [facility] Comment on above: Performed By: #### D RUGSCRU ####Unless otherwise noted, all testing performed by [place] [phone]: [id number] Director: Jesus Najera M.D. Erythrocytes (RBC) 4.05 M/mcL Normal 4.0-5.5 [facility] Comment on above: Performed By: #### D LOLASCRU ####Unless otherwise noted, all testing performed by [address] [phone]: [id number] Director: Jesus Najera M.D. Hematocrit (HCT) 40.7 % Normal 37.9-49.2 [facility] Comment on above: Performed By: #### D MARY ####Unless otherwise noted, all testing performed by [place] [phone]: [id number] Director: Jesus Najera M.D. Hemoglobin mass conc (Bld) 13.9 g/dL Normal 12.9-16.9 [facility] Comment on above: Performed By: #### D LOLASCSIENNA ####Unless otherwise noted, all testing performed by [place] [phone]: [id number] Director: Jesus Najera M.D. Lymphocytes 0.9 K/mcL Normal 0.9-3.6 [facility] Comment on above: Performed By: #### D MARY ####Unless otherwise noted, all testing performed by [place] [phone]: [id number] Director: Jesus Najera M.D. Lymphocytes/100 leukocytes 27.4 % Normal [facility] Comment on above: Performed By: #### D MARY ####Unless otherwise noted, all testing performed by [place] [phone]: [id number] Director: Jesus Najera M.D. MCH 34.4 pg Normal 27.7-34.6 [facility] Comment on above: Performed By: #### D MARY ####Unless otherwise noted, all testing performed by [address] [phone]: [id number] Director: Jesus Najera M.D. MCHC mass conc (RBC) 34.2 g/dL Normal 32.9-35.5 [facility] Comment on above: Performed By: #### D MARY ####Unless otherwise noted, all testing performed by [address]8[address]CLIA: [id number] Director: Jesus Najera M.D. MCV 100.6 fL High 82.8-99.3 [facility] Comment on above: Performed By: #### D MARY ####Unless otherwise noted, all testing performed by [address]8[address]CLIA: [id number] Director: Jesus Najera M.D. Monocytes 0.4 K/mcL Normal 0.2-0.6 [facility] Comment on above: Performed By: #### D MARY ####Unless otherwise noted, all testing performed by [address]8[address]CLIA: [id number] Director: Jesus Najera M.D. Monocytes/100 leukocytes 12.1 % Normal [facility] Comment on above: Performed By: #### D MARY ####Unless otherwise noted, all testing performed by [address], [place] [phone]: [id number] Director: Jesus Najera M.D. Neutrophils 1.9 K/mcL Normal 1.4-6.8 [facility] Comment on above: Performed By: #### D MARY ####Unless otherwise noted, all testing performed by [place] [phone]: [id number] Director: Jesus Najera M.D. Platelet mean volume (PMV) 8.2 fL Normal 6.6-10.8 [facility] Comment on above: Performed By: #### D LOLASCSIENNA ####Unless otherwise noted, all testing performed by [address]8[address]CLIA: [id number] Director: Jesus Najera M.D. Platelets 105 K/mcL Low 139-354 [facility] Comment on above: Performed By: #### D MARY ####Unless otherwise noted, all testing performed by [place] [id number]: [id number] Director: Jesus Najera M.D. Segmented Neut % 57.2 % Normal [facility] Comment on above: Performed By: #### D RUGSCRU ####Unless otherwise noted, all testing performed by [place] [phone]: [id number] Director: Jesus Najera M.D. WBC (Leukocytes) 3.4 K/mcL Low 3.6-10.4 [facility] Comment on above: Performed By: #### D RUGSCRU ####Unless otherwise noted, all testing performed by [address] [phone]: [id number] Director: Jesus Najera M.D. Basophils Auto #/vol (Bld) 0.1 K/mcL Normal 0-0.2 [facility] Comment on above: Performed By: #### C BCDIF, CMET, EDCTNI, ACTMN, LIPASE ####Unless otherwise noted, all testing performed by [address] [phone]: [id number] Director: Jesus Najera M.D. Basophils/100 WBC Auto (Bld) 1.3 % Normal [facility] Comment on above: Performed By: #### C BCDIF, CMET, EDCTNI, ACTMN, LIPASE ####Unless otherwise noted, all testing performed by [address] [phone]: [id number] Director: Jesus Najera M.D. Eosinophils 0.1 K/mcL Normal 0-0.5 [facility] Comment on above: Performed By: #### C BCDIF, CMET, EDCTNI, ACTMN, LIPASE ####Unless otherwise noted, all testing performed by [address] [phone]: [id number] Director: Jesus Najera M.D. Eosinophils/100 leukocytes 2.0 % Normal [facility] Comment on above: Performed By: #### C BCDIF, CMET, EDCTNI, ACTMN, LIPASE ####Unless otherwise noted, all testing performed by [address], [place] [phone]: [id number] Director: Jesus Najera M.D. Erythrocytes (RBC) 4.33 M/mcL Normal 4.0-5.5 [facility] Comment on above: Performed By: #### C BCDIF, CMET, EDCTNI, ACTMN, LIPASE ####Unless otherwise noted, all testing performed by [address] [phone]: [id number] Director: Jesus Najera M.D. Lymphocytes 1.6 K/mcL Normal 0.9-3.6 [facility] Comment on above: Performed By: #### C BCDIF, CMET, EDCTNI, ACTMN, LIPASE ####Unless otherwise noted, all testing performed by [address] [phone]: [id number] Director: Jesus Najera M.D. Lymphocytes/100 leukocytes 33.2 % Normal [facility] Comment on above: Performed By: #### C BCDIF, CMET, EDCTNI, ACTMN, LIPASE ####Unless otherwise noted, all testing performed by [address] [phone]: [id number] Director: Jesus Najera M.D. Monocytes 0.7 K/mcL High 0.2-0.6 [facility] Comment on above: Performed By: #### C BCDIF, CMET, EDCTNI, ACTMN, LIPASE ####Unless otherwise noted, all testing performed by [address] [phone]: [id number] Director: Jesus Najera M.D. Monocytes/100 leukocytes 14.8 % Normal [facility] Comment on above: Performed By: #### C BCDIF, CMET, EDCTNI, ACTMN, LIPASE ####Unless otherwise noted, all testing performed by [place] [phone]: [id number] Director: Jesus Najera M.D. Neutrophils 2.3 K/mcL Normal 1.4-6.8 [facility] Comment on above: Performed By: #### C BCDIF, CMET, EDCTNI, ACTMN, LIPASE ####Unless otherwise noted, all testing performed by [address]8[address]CLIA: [id number] Director: Jesus Najera M.D. Platelets 141 K/mcL Normal 139-354 [facility] Comment on above: Performed By: #### C BCDIF, CMET, EDCTNI, ACTMN, LIPASE ####Unless otherwise noted, all testing performed by [address]8[address]CLIA: [id number] Director: Jesus Najera M.D. Segmented Neut % 48.7 % Normal [facility] Comment on above: Performed By: #### C BCDIF, CMET, EDCTNI, ACTMN, LIPASE ####Unless otherwise noted, all testing performed by [place] [phone]: [id number] Director: Jesus Najera M.D. WBC (Leukocytes) 4.7 K/mcL Normal 3.6-10.4 [facility] Comment on above: Performed By: #### C BCDIF, CMET, EDCTNI, ACTMN, LIPASE ####Unless otherwise noted, all testing performed by [address] [phone]: [id number] Director: Jesus Najera M.D. CHEMG (Basic Metabolic and M g)on 06-13-2017 Calcium 8.1 mg/dL Low 8.4-10.2 [facility] Comment on above: Performed By: #### D RUGSCRU ####Unless otherwise noted, all testing performed by [place] [phone]: [id number] Director: Jesus Najera M.D. Chloride 105 mmol/L Normal 98-108 [facility] Comment on above: Performed By: #### D RUGSCRU ####Unless otherwise noted, all testing performed by [place] [phone]: [id number] Director: Jesus Najera M.D. CO2 27 mmol/L Normal 21-32 [facility] Comment on above: Performed By: #### D RUGSCRU ####Unless otherwise noted, all testing performed by [address] [phone]: [id number] Director: Jesus Najera M.D. Creatinine 0.69 mg/dL Normal 0.50-1.30 [facility] Comment on above: Performed By: #### D RUGSCRU ####Unless otherwise noted, all testing performed by [place] [phone]: [id number] Director: Jesus Najera M.D. eGFR (black) mL/min/{1.73_m2} Normal [facility] Comment on above: Result Comment: Afri can Tajik GFR Calc Performed By: #### D MARY ####Unless otherwise noted, all testing performed by [address] [phone]: [id number] Director: Jesus Najera M.D. eGFR (non-black) mL/min/{1.73_m2} Normal [facility] Comment on above: Result Comment: Non- GFR CalceGFR is an estimated Glomerular Filtration Rate based on the valueof the patient's serum creatinine. In outpatients, eGFR should be usedas a helpful tool in screening for CKD. In inpatients or patients withacute renal failure, eGFR represents the GFR at the moment of the drawand should be used with caution. Performed By: #### D MARY ####Unless otherwise noted, all testing performed by [address] [phone]: [id number] Director: Jesus Najera M.D. Glucose mass conc 84 mg/dL Normal 70-99 [facility] Comment on above: Result Comment: This test result might be falsely depressed or falsely elevated onsamples drawn from patients taking Sulfasalazine and Sulfapyridine.Venipuncture should occur prior to taking either of these drugs. Performed By: #### D MARY ####Unless otherwise noted, all testing performed by [address] [phone]: [id number] Director: Jesus Najera M.D. Magnesium 2.3 mg/dL Normal 1.6-2.4 [facility] Comment on above: Performed By: #### D RUGSCRU ####Unless otherwise noted, all testing performed by [address] [phone]: [id number] Director: Jesus Najera M.D. Potassium molar conc 3.4 mmol/L Low 3.5-5.1 [facility] Comment on above: Performed By: #### D RUGSCRU ####Unless otherwise noted, all testing performed by [address] [phone]: [id number] Director: Jesus Najera M.D. Sodium 142 mmol/L Normal 135-145 [facility] Comment on above: Performed By: #### D RUGSCRU ####Unless otherwise noted, all testing performed by [address] [phone]: [id number] Director: Jesus Najera M.D. Urea nitrogen 3 mg/dL Low 8-25 [facility] Comment on above: Performed By: #### D RUGSCRU ####Unless otherwise noted, all testing performed by [address] [phone]: [id number] Director: Jesus Najera M.D. CHEST (ONE VIEW ONLY)on 05-17 CHEST (ONE VIEW ONLY) Final ReportAccession No: [id number] Performed: Jun 13 2017 12:34AMExamination: CHEST (ONE VIEW ONLY)IMAGES REVIEWED: CHEST (ONE VIEW ONLY)COMPARISON: None available.CLINICAL INDICATION: Weakness.FINDINGS: The heart is normal in size. The lungs are clear. There is nosignificant pneumothorax or pleural effusion. No acute osseousabnormality isseen.IMPRESSION:No acute cardiopulmonary abnormality.Interpreting Physician: MEAGAN LAUGHLIN M.D.Trans: lyla : cc: Normal [facility] Comprehensive Metabolic Pane kaz 06-13-2017 Alanine aminotransferase (ALT) 135 U/L High 14-65 [facility] Comment on above: Result Comment: This test result might be falsely depressed or falsely elevated onsamples drawn from patients taking Sulfasalazine and Sulfapyridine.Venipuncture should occur prior to taking either of these drugs. Performed By: #### C BCDIF, CMET, EDCTNI, ACTMN, LIPASE ####Unless otherwise noted, all testing performed by [place] [phone]: [id number] Director: Jesus Najera M.D. Albumin 4.6 g/dL Normal 3.2-5.2 [facility] Comment on above: Performed By: #### C BCDIF, CMET, EDCTNI, ACTMN, LIPASE ####Unless otherwise noted, all testing performed by [address] [phone]: [id number] Director: Jesus Najera M.D. Alkaline phosphatase (ALP) 70 U/L Normal 40-140 [facility] Comment on above: Performed By: #### C BCDIF, CMET, EDCTNI, ACTMN, LIPASE ####Unless otherwise noted, all testing performed by [address] [phone]: [id number] Director: Jesus Najera M.D. Aspartate aminotransferase (AST) 208 U/L High 0-45 [facility] Comment on above: Result Comment: This test result might be falsely depressed or falsely elevated onsamples drawn from patients taking Sulfasalazine and Sulfapyridine.Venipuncture should occur prior to taking either of these drugs. Performed By: #### C BCDIF, CMET, EDCTNI, ACTMN, LIPASE ####Unless otherwise noted, all testing performed by [place] [phone]: [id number] Director: Jesus Najera M.D. Bilirubin (total) 0.3 mg/dL Normal 0.3-1.2 [facility] Comment on above: Performed By: #### C BCDIF, CMET, EDCTNI, ACTMN, LIPASE ####Unless otherwise noted, all testing performed by [place] [phone]: [id number] Director: Jesus Najera M.D. Calcium 8.7 mg/dL Normal 8.4-10.2 [facility] Comment on above: Performed By: #### C BCDIF, CMET, EDCTNI, ACTMN, LIPASE ####Unless otherwise noted, all testing performed by [phone]: [id number] Director: Jesus Najera M.D. Chloride 104 mmol/L Normal 98-108 [facility] Comment on above: Performed By: #### C BCDIF, CMET, EDCTNI, ACTMN, LIPASE ####Unless otherwise noted, all testing performed by [place] [phone]: [id number] Director: Jesus Najera M.D. CO2 27 mmol/L Normal 21-32 [facility] Comment on above: Performed By: #### C BCDIF, CMET, EDCTNI, ACTMN, LIPASE ####Unless otherwise noted, all testing performed by [address] [phone]: [id number] Director: Jesus Najera M.D. Creatinine 0.68 mg/dL Normal 0.50-1.30 [facility] Comment on above: Performed By: #### C BCDIF, CMET, EDCTNI, ACTMN, LIPASE ####Unless otherwise noted, all testing performed by [address] [phone]: [id number] Director: Jesus Najera M.D. eGFR (black) mL/min/{1.73_m2} Normal [facility] Comment on above: Result Comment: Afri can Tajik GFR Calc Performed By: #### C BCDIF, CMET, EDCTNI, ACTMN, LIPASE ####Unless otherwise noted, all testing performed by [address] [phone]: [id number] Director: Jesus Najera M.D. eGFR (non-black) mL/min/{1.73_m2} Normal [facility] Comment on above: Result Comment: Non- GFR CalceGFR is an estimated Glomerular Filtration Rate based on the valueof the patient's serum creatinine. In outpatients, eGFR should be usedas a helpful tool in screening for CKD. In inpatients or patients withacute renal failure, eGFR represents the GFR at the moment of the drawand should be used with caution. Performed By: #### C BCDIF, CMET, EDCTNI, ACTMN, LIPASE ####Unless otherwise noted, all testing performed by [address] [phone]: [id number] Director: Jesus Najera M.D. Glucose 90 mg/dL Invalid Interpretation Code 70 - 99 mg/dL [facility] Glucose mass conc 90 mg/dL Normal 70-99 [facility] Comment on above: Result Comment: This test result might be falsely depressed or falsely elevated onsamples drawn from patients taking Sulfasalazine and Sulfapyridine.Venipuncture should occur prior to taking either of these drugs. Performed By: #### C BCDIF, CMET, EDCTNI, ACTMN, LIPASE ####Unless otherwise noted, all testing performed by [address] [phone]: [id number] Director: Jesus Najera M.D. Potassium 3.8 mmol/L Normal 3.5-5.1 [facility] Comment on above: Performed By: #### C BCDIF, CMET, EDCTNI, ACTMN, LIPASE ####Unless otherwise noted, all testing performed by [address] [phone]: [id number] Director: Jesus Najera M.D. Protein 8.2 g/dL High 6.0-8.0 [facility] Comment on above: Performed By: #### C BCDIF, CMET, EDCTNI, ACTMN, LIPASE ####Unless otherwise noted, all testing performed by [address] [phone]: [id number] Director: Jesus Najera M.D. Sodium 141 mmol/L Normal 135-145 [facility] Comment on above: Performed By: #### C BCDIF, CMET, EDCTNI, ACTMN, LIPASE ####Unless otherwise noted, all testing performed by [address] [phone]: [id number] Director: Jesus Najera M.D. Urea nitrogen 4 mg/dL Low 8- [facility] Comment on above: Performed By: #### C BCDIF, CMET, EDCTNI, ACTMN, LIPASE ####Unless otherwise noted, all testing performed by [address] [phone]: [id number] Director: Jeuss Najera M.D. Urine, bilirubin presence 0.3 mg/dL Invalid Interpretation Code 0.3 - 1.2 mg/dL [facility] Drugs of Abuse Screen, Urine on 06-13-2017 Amphetamine Screen, Urine None Detected Invalid Interpretation Code None Detected [facility] Barbiturate Screen, Urine None Detected Invalid Interpretation Code None Detected [facility] Benzodiazepine Screen, Urine None Detected Invalid Interpretation Code None Detected [facility] Cannabinoids Screen, Urine None Detected Invalid Interpretation Code None Detected [facility] Cocaine Screen, Urine None Detected Invalid Interpretation Code None Detected [facility] DOA Cutoffs, UR See comment. Invalid Interpretation Code [facility] Methadone Screen, Urine None Detected Invalid Interpretation Code None Detected [facility] Opiates Screen, Urine None Detected Invalid Interpretation Code None Detected [facility] Oxycodone Screen, Urine None Detected Invalid Interpretation Code None Detected [facility] Drugs of Abuse, Urineon 05-17 Amphetamines,Ur None Detected Normal None Detected [facility] Comment on above: Performed By: #### D RUGSCRU ####Unless otherwise noted, all testing performed by [address] [phone]: [id number] Director: Jesus Najera M.D. Barbiturates,Ur None Detected Normal None Detected [facility] Comment on above: Performed By: #### D RUGSCRU ####Unless otherwise noted, all testing performed by [address], [place] [phone]: [id number] Director: Jesus Najera M.D. Benzodiazepine,Ur None Detected Normal None Detected [facility] Comment on above: Performed By: #### D RUGSCRU ####Unless otherwise noted, all testing performed by [address] [phone]: [id number] Director: Jesus Najera M.D. Cannabinoids,Ur None Detected Normal None Detected [facility] Comment on above: Performed By: #### D RUGSCRU ####Unless otherwise noted, all testing performed by [address] [phone]: [id number] Director: Jesus Najera M.D. Cocaine,Ur None Detected Normal None Detected [facility] Comment on above: Performed By: #### D LOLASCRU ####Unless otherwise noted, all testing performed by [address] [phone]: [id number] Director: Jesus Najera M.D. DOA Cutoffs See comment. Normal [facility] Comment on above: Result Comment: Drug s of Abuse, Urine Presumptive Positive Cutoff Concentrations.Amphetamine/Methamphetamine: 1000 ng/mlBarbiturates: 200 ng/mlBenzodiazepines and metabolities: 200 ng/mlCannabinoids: 50 ng/mlCocaine/Benzoylecgonine: 300 ng/mlMethadone:300 ng/mlOpiates: 300 ng/mlOxycodone/Oxymorphone: 100 ng/ml Performed By: #### D RUGSCRU ####Unless otherwise noted, all testing performed by [address], [place] [phone]: [id number] Director: Jesus Najera M.D. Methadone,Ur None Detected Normal None Detected [facility] Comment on above: Performed By: #### D MARY ####Unless otherwise noted, all testing performed by [address] [phone]: [id number] Director: Jesus Najera M.D. Opiates,Ur None Detected Normal None Detected [facility] Comment on above: Performed By: #### D MARY ####Unless otherwise noted, all testing performed by [address] [phone]: [id number] Director: Jesus Najera M.D. Oxycodone, Urine None Detected Normal None Detected [facility] Comment on above: Result Comment: THES E DRUGS OF ABUSE TESTS ARE PROVIDED A MEDICAL SCREENING ONLY.POSITIVE RESULTS ARENOT CONFIRMED BY GCMS Performed By: #### D MARY ####Unless otherwise noted, all testing performed by [address] [phone]: [id number] Director: Jesus Najera M.D. ED Cardiac Troponin-Ion 03- Troponin I ng/mL Normal < 45 [facility] Comment on above: Result Comment: Elev ation of troponin indicates some degree of myocardial necrosis butunless there is a significant rise and/or fall (if elevated) identified,it unlikely that an acute event has taken placeSamples from patients routinely receiving high dose biotin therapy(100-300 mg/day) may show falsely decreased results. Please correlateclinically. Performed By: #### C BCDIF, CMET, EDCTNI, ACTMN, LIPASE ####Unless otherwise noted, all testing performed by [address] [phone]: [id number] Director: Jesus Najera M.D. Lactic Acidon 06-13-2017 Lactate 1.5 mmol/L Normal 0.6-2.0 [facility] Comment on above: Performed By: #### D RUGSCRU ####Unless otherwise noted, all testing performed by [address] [phone]: [id number] Director: Jesus Najera M.D. Lipaseon 06-13-2017 Lipase 291 U/L Normal 73-393 [facility] Comment on above: Performed By: #### C BCDIF, CMET, EDCTNI, ACTMN, LIPASE ####Unless otherwise noted, all testing performed by [address] [phone]: [id number] Director: Jesus Najera M.D. Salicylate Levelon 8 Interpretation and review of laboratory results Abnormal Invalid Interpretation Code [facility] Salicylate 4.1 mg/dL Low 10.0-20.0 [facility] Comment on above: Result Comment: Sali cylate Therapeutic Ranges: ____Antiplatelet, Antipyretic and Analgesic: 2.0-10.0 mg/dlAnti-inflammatory: 15.0-30.0 mg/dlToxicity may occur at levels above 20.0 mg/dlCritical: > 30.0 mg/dl Performed By: #### S AL ####Unless otherwise noted, all testing performed by [place] [address] [place], [place] [phone]: [id number] Director: Jesus Najera M.D. [facility] 03-23-2017 [facility] HNO ID: [id number] thor: Mercedez (Rory) TerryaService: Art TherapyAuthor Type: Art TherapistType: Allied HealthFiled: 03/23/2017 2:39 PMNote Text:GROUP PROGRESS NOTESERVICE DATE: 03/23/2017SERVICE TIME: 1:15 PMLength (minutes): 75Attendance: SleepingParticipation Level: Did Not AttendGROUP PARTICIPATION:Group Topics:Art Therapy: Directive - Unstructured and Mango PoetryPurpose - Emotional Expression, Regulation, and Identification and Insightand Awareness BuildingSIGNATURE: Mercedez Quevedo LPC,GERENTOLOGICAL PHYSIOTHERAPIST PATIENT NAME: Lon Turk: March 23, 2017 : 2:38 PM [facility] HNO ID: [id number] thor: Mercedez (Nib Finisher) RiveraService: Art TherapyAuthor Type: Art TherapistType: Allied HealthFiled: 03/23/2017 2:38 PMNote Text:GROUP PROGRESS NOTESERVICE DATE: 03/23/2017SERVICE TIME: 11:00 AMLength (minutes): 60Attendance: SleepingParticipation Level: Did Not AttendGROUP PARTICIPATION:Group Topics:Community Resources: Alcoholics AnonymousSIGNATURE: Mercedez Quevedo LPC,GERENTOLOGICAL PHYSIOTHERAPIST PATIENT NAME: Lon Turk: March 23, 2017 : 2:38 PM [facility] HNO ID: [id number] thor: Mercedez (Nib Finisher) RiveraService: Art TherapyAuthor Type: Art TherapistType: Allied HealthFiled: 03/23/2017 10:42 AMNote Text:GROUP PROGRESS NOTESERVICE DATE: 03/23/2017SERVICE TIME: 9:30 AMLength (minutes): 60Attendance: SleepingParticipation Level: Did Not AttendGROUP PARTICIPATION:Group Topics:Community Meeting: Symptom AND Mood Check-In, Treatment Progress andResilience WorksheetSIGNATURE: Mercedez Quevedo LPC,GERENTOLOGICAL PHYSIOTHERAPIST PATIENT NAME: Lon JohnsTE: March 23, 2017 : 10:41 AM Normal [facility] CONSULTon 03-23-2017 CONSULT HNO ID: [id number] thor: Akhil Granadoservice: NeurologyAuthor Type: PhysicianType: ConsultsFiled: 04/16/2017 1:40 PMNote Text:[facility] - ConsultationALCIDES BURKSOB: 1975 AGE: 41 SEX: MMRN: [id number] ACCTNUM: [id number] SV: [facility] LOCATION: [id number] PHYSICIAN: Sid Payne M.D.DATE OF CONSULTATION: 03/23/2017CONSULTING PHYSICIAN: Akhil Rosado M.D.HISTORY OF PRESENT ILLNESS: The patient is a 41-year-old white male, right- handed, with a past medical history significant for alcoholabuse, history of cocaine abuse and marijuana abuse, who had beenadmitted to the alcohol detox unit floor at [facility] forchronic alcoholism. He had been complaining from headache for the lastone month. I have been consulted to evaluate the patient for hisheadache. According to the patient, he was wrestling with a friend.Angiogram on the right side of the head with some laceration in his ear.He went to the hospital at that time and he had imaging of his brainwith and being told it was normal. Since that time, he is complainingfrom intermittent dull achy headache, which can range from 4-7/10 inseverity on the right uatsdin area. Not associated with nausea,vomiting, or photophobia or phonophobia or fever or focal weakness. He is taking Tylenol and ibuprofen which helped the headache. Headmits that he has some sleep problems.PAST MEDICAL HISTORY: As above.PSYCHOSOCIAL HISTORY: He is a smoker and alcoholic, history ofcocaine and marijuana abuse. He denies using any walking aid at home.REVIEW OF SYSTEMS: As above. He denies any chest pain or cough orexpectoration.FAMILY HISTORY: Noncontributory to his illness. He denies anyhistory of degenerative brain disease, or inherited neuropathic ormyopathic illness.PHYSICAL EXAMINATION: General: The patient was alert and oriented x3.No facial asymmetry. Cranial nerves 2-12 are intact. Motor power in upper and lower extremities is 5/5, bilateral deep tendon reflexes +2bilateral, plantar reflexes flexor bilateral. He was afebrile. No neckstiffness. No rigidity.IMPRESSION AND PLAN: Apparently, the patient's neurologicalexamination is nonfocal with history of alcoholism, complaining fromchronic headache status post trauma, which is more consistent withposttraumatic headache suggest to start him on Toradol and checkingCAT scan of the brain to rule out any remote possibility of intracranialpathology as a cause of his headache.Akhil Rosado M.D.NeurologyK:[id number] T: 03/23/2017 15:10:46Job #: [id number] [facility] NURSING PROGon 03-23-2017 NURSING PROG HNO ID: [id number] thor: Rosa Elena Dooley (Rn) HALEIGH Hallmanervice: (none)Author Type: Registered NurseType: Nursing Progress NoteFiled: 03/23/2017 5:58 AMNote Text: Nursing Progress NotePatient Name: Lon BurksMRN: [id number] Location: [place] [address]* Daily Note:1900 Assumed care of patient. Observed patient resting in bed. No distressnoted. Will continue to monitor.?2100 CIWA=4. Scheduled librium given. AANDOx3. Gait unsteady. Fallprecautions in place. Patient pleasant and cooperative with medications.No distress noted. Will continue to monitor. BP 123/83 Pulse 67 Temp36.4 ?C (97.5 ?F) (Temporal Artery) Resp 18 Ht 172.7 cm (5' 8") Wt65.8 kg (145 lb) SpO2 99% BMI 22.05 kg/m2?0500 CIWA=2. Scheduled librium given. No distress noted. Will continue tomonitor. BP 118/85 Pulse 82 Temp 36.3 ?C (97.3 ?F) (Temporal Artery) Resp 18 Ht 172.7 cm (5' 8") Wt 65.8 kg (145 lb) SpO2 99% BMI 22.05kg/b18221 Report given to on-coming nurse.This note was completed by: Rosa Elena Hallman RN [facility] PROGRESSon 03-23-2017 PROGRESS HNO ID: [id number] thor: Akhil Granadoservice: NeurologyAuthor Type: PhysicianType: Progress NotesFiled: 03/23/2017 12:39 PMNote Text:CONSULT PROGRESS NOTESPATIENT NAME: Lon BurksMRN: [id number] DATE: 03/23/2017SERVICE TIME: 12:39 PMASSESSMENT AND PLANPost traumatic headachePatient's neuro exam non focal Ct head no acute changesContinue on Toradol PRNSUBJECTIVECHIEF COMPLAINT: ALCOHOLISMPRIMARY SERVICE: Neurology.MEDICATIONS:[facility] medications:meclizine 25 mg tab(s) (ANTIVERT) 25 mg ORAL TIDketorolac 10 mg tab(s) (TORADOL) 10 mg ORAL q 6 H PRNcholecalciferol 2,000 Units tab(s) (VITAMIN D3) 2,000 Units ORAL DAILYondansetron 4 mg tab(s) (ZOFRAN) 4 mg ORAL q 6 H PRNondansetron (PF) 4 mg injection (ZOFRAN) 4 mg INTRAMUSCULAR q 6 H PRNondansetron (PF) 4 mg injection (ZOFRAN) 4 mg INTRAVENOUS q 6 H PRNloperamide 2 mg cap(s) (IMODIUM) 2 mg ORAL q 4 H PRNnaloxone 0.4-0.8 mg injection (NARCAN) 0.4-0.8 mg INTRAMUSCULAR q 1 H PRNnicotine polacrilex 2 mg gum (NICORETTE) 2 mg ORAL q 2 H PRNLORazepam 2 mg tab(s) (ATIVAN) 2 mg ORAL q 4 H PRNLORazepam 2 mg injection (ATIVAN) 2 mg INTRAMUSCULAR q 4 H PRNLORazepam 2 mg injection (ATIVAN) 2 mg INTRAVENOUS q 4 H PRNfolic acid 1 mg tab(s) 1 mg ORAL DAILY WITH BREAKFASTmultivitamin-deng michael fumarate-folic acid 1 tablet (CENTRUM) 1 tablet ORALDAILY WITH BREAKFAST[START ON 03/25/2017] thiamine 100 mg (VITAMIN B1) 100 mg ORAL q 8 Hacetaminophen 1,000 mg tab(s) (TYLENOL) 1,000 mg ORAL q 6 H PRNgabapentin 300 mg cap(s) (NEURONTIN) 300 mg ORAL TIDdocusate sodium 100 mg cap(s) (COLACE) 100 mg ORAL BID PRNdocusate sodium 100 mg cap(s) (COLACE) 100 mg ORAL BID PRNchlordiazePOXIDE 10 mg cap(s) (LIBRIUM) 10 mg ORAL QIDgabapentin 300 mg cap(s) (NEURONTIN) 300 mg ORAL q 4 H PRNnicotine 21 mg/24 hr 1 Patch (NICODERM) 1 Patch TRANSDERMAL DAILYnicotine -- REMOVE patch OTHER DAILYnicotine - verify patch OTHER q 8 HhydrOXYzine HCl 25 mg tab(s) (ATARAX) 25 mg ORAL q 6 H PRNdoxepin 10 mg cap(s) (SINEquan) 10 mg ORAL HS PRNOBJECTIVEPHYSICAL EXAM:Patient Vitals for the past 24 hrs: BP Temp Temp src Pulse Resp UnQ95003/23/17 1128 124/95 36.8 ?C (98.2 ?F) Temporal Art 86 18 98 %03/23/17 0755 127/91 36.3 ?C (97.3 ?F) Temporal Art 66 18 98 %03/23/17 0554 118/85 36.3 ?C (97.3 ?F) Temporal Art 82 18 99 %03/22/17 2009 123/83 36.4 ?C (97.5 ?F) Temporal Art 67 18 99 %03/22/17 1732 121/90 36.2 ?C (97.1 ?F) Temporal Art 90 18 99 %Body mass index is 22.05 kg/(m2).GENERAL: alert, no distress, cooperativeNEURO: -Negative:cranial nerves 2-12 intactDATA:Diagnostic tests reviewed.SIGNATURE: Akhil Rosado MDDATE: March 23, 2017TIME: 12:38 PM [facility] 03-22-2017 [facility] HNO ID: [id number] thor: Flores (Therapist) KodyService: Art TherapyAuthor Type: TherapistType: Allied HealthFiled: 03/22/2017 12:46 PMNote Text:GROUP PROGRESS NOTESERVICE DATE: 03/22/2017SERVICE TIME: 0930Length (minutes): 45Attendance: Did Not AttendParticipation Level: Did Not AttendParticipation Quality: did not attendGROUP PARTICIPATION:Group Topics:Community Meeting: Reflective WritingSIGNATURE: Flores Gates LPC AT PATIENT NAME: Lon BurksDATE: March 22, 2017 : 12:46 PM Normal [facility] CBC and Differentialon 03-22 Abs Baso 0.03 k/uL Normal <0.11 [facility] Comment on above: Performed By: #### U AWELIANA, UTOX2 ####[place] [phone] Abs Leake 0.77 k/uL Normal <0.87 [facility] Comment on above: Performed By: #### U AWMIC, UTOX2 ####[place] [phone] Abs Neut 2.62 k/uL Normal 1.45-7.50 [facility] Comment on above: Performed By: #### U AWMIC, UTOX2 ####[place] [phone] Basophils/100 WBC Auto (Bld) 0.7 % [facility] Comment on above: Performed By: #### U AWMIC, UTOX2 ####[place] [phone] Eosinophils 0.06 10*3/uL Normal <0.46 [facility] Comment on above: Performed By: #### U AWMIC, UTOX2 ####[place] [id number] Eosinophils/100 leukocytes 1.4 % [facility] Comment on above: Performed By: #### U AWMIC, UTOX2 ####[place] [phone] Erythrocyte distribution width Auto Ratio (RBC) 14.1 % Normal 11.5-15.0 [facility] Comment on above: Performed By: #### Lesley DURAN UTOX2 ####[place] [phone] Erythrocytes (RBC) 4.66 10*6/uL Normal 4.20-6.00 [facility] Comment on above: Performed By: #### Lesley DURAN UTOX2 ####[place] [id number] Erythrocytes (RBC) 0.0 /100 WBC Normal 0 [facility] Comment on above: Performed By: #### Lesley DURAN UTOX2 ####[place] [phone] Hematocrit (HCT) 45.6 % Normal 39.0-51.0 [facility] Comment on above: Performed By: #### Lesley DURAN UTOX2 ####[place] [id number] Hemoglobin mass conc (Bld) 15.2 g/dL Normal 13.0-17.0 [facility] Comment on above: Performed By: #### Lesley DURAN UTOX2 ####[place] [id number] Lymphocytes 0.79 10*3/uL Low 1.00-4.00 [facility] Comment on above: Performed By: #### Lesley DURAN UTOX2 ####[place] [id number] Lymphocytes/100 leukocytes 18.5 % Normal [facility] Comment on above: Performed By: #### Lesley DURAN UTOX2 ####[place] [id number] MCH 32.6 pG Normal 26.0-34.0 [facility] Comment on above: Performed By: #### Lesley DURAN UTOX2 ####[place] [id number] MCHC mass conc (RBC) 33.3 g/dL Normal 30.5-36.0 [facility] Comment on above: Performed By: #### Lesley DURAN UTOX2 ####[place] [id number] MCV 97.9 fL Normal 80.0-100.0 [facility] Comment on above: Performed By: #### Lesley DURAN UTOX2 ####[place] [id number] Monocytes/100 leukocytes 18.0 % Normal [facility] Comment on above: Performed By: #### Lesley DURAN UTOX2 ####[place] [id number] Neutrophils/100 WBC Auto (Bld) 61.4 % Normal [facility] Comment on above: Performed By: #### Lesley DURAN UTOX2 ####[place] [phone] Platelet mean volume (PMV) 10.8 fL Normal 9.0-12.7 [facility] Comment on above: Performed By: #### Lesley DURAN UTOX2 ####[place] [id number] Platelets 117 10*3/uL Low 150-400 [facility] Comment on above: Performed By: #### Lesley DURAN UTOX2 ####[place] [phone] WBC (Leukocytes) 4.27 10*3/uL Normal 3.70-11.00 [facility] Comment on above: Performed By: #### Lesley DURAN UTOX2 ####[place] [id number] CONSULTon 03-22-2017 CONSULT HNO ID: [id number] thor: Alvaro WalkerniService: General Internal MedicineAuthor Type: PhysicianType: ConsultsFiled: 03/22/2017 4:17 PMNote Text:INTERNAL MEDICINE CONSULT HISTORY AND PHYSICALPLEASE DO NOT REMOVE FROM THE CHART OR MODIFY PRINTED COPYPatient Name: Lon BurksMRN: [id number] CARE PHYSICIAN: No primary care provider on file.CONSULTING PHYSICIAN: Sid Payne MDDATE of CONSULT: 4:14 PMHPI: This is a 41 year old male who presents with Lon presents to theinpatient chemical dependency unit for further evaluation and managementof Alcohol withdrawal with Alcohol Use Disorder, Severe.patient seendenied cp/ sob no n/vPAST MEDICAL HISTORY:No past medical history on file.PAST SURGICAL HISTORY:No past surgical history on file.FAMILY HISTORY:No family history on file.SOCIAL HISTORY:Social HistorySubstance Use Topics- Smoking status: Current Every Day Smoker Packs/day: 1.00 Types: Cigarettes- Smokeless tobacco: Never Used- Alcohol use YesALLERGIES:ALLERGIESNo Known AllergiesPRIOR TO ADMISSION MEDICATIONS:Prescriptions Prior to Admission:meclizine (ANTIVERT) 25 mg tab Take 25 mg by mouth three times daily.Disp: Rfl: Past Week at 1 week agoREVIEW OF SYSTEMS:GENERAL: No weight loss, malaise or feversHEENT: Negative for frequent or significant headaches, No changes inhearing or vision, no nose bleeds or other nasal problemsNECK: Negative for lumps, goiter, pain and significant neck swellingRESPIRATORY: Negative for cough, hemoptysis, wheezing, COPD, dyspnea orshortness of breathCARDIOVASCULAR: Negative for chest pain, leg swelling, hypertension, CHFor palpitationsGI: No nausea, vomiting, or diarrheaSKIN: Negative for lesions, rash, and itchingHEMATOLOGY/LYMPHOL OGY: Negative for prolonged bleeding, bruising easily orswollen nodesENDOCRINE: Negative for cold or heat intolerance, polyuria, polydipsia andgoiterNEURO: No history of headaches, syncope, paralysis, seizures or tremorsAll other reviewed and negative other than HPI.PHYSICAL EXAM:Blood pressure 135/102, pulse 103, temperature 37.7 ?C (99.8 ?F),temperature source Temporal Artery, resp. rate 18, height 172.7 cm (5'8"), weight 65.8 kg (145 lb), SpO2 96 %.General appearance: well appearing, alert, in no acute distress,well-hydrated, well nourishedSkin: Skin color, texture, turgor normal, no suspicious rashes or lesionsHead: normalEyes: Anicteric sclera. Pupils are equally round and reactive to light.Extraocular movements are intact.Ears: external ears normal, canals clear, TM's normalNose/Sinuses: NegativeOropharynx: Lips, mucosa, and tongue normal, teeth and gums normal,oropharynx normalNeck: Supple, no adenopathy; thyroid symmetric, normal size, no bruitsBack: no pain to palpation over spine or costovertebral angles, reflexesare 2+ and symmetric, motor and sensory appear to be normalLungs: clear to auscultation, no wheezing or rhonchiHeart: RRR without murmur, gallop, or rubs. No ectopyAbdomen: Normal abdominal exam, Abdomen soft, non-tender. Bowel soundsnormal. No masses, organomegalyExtremities: Extremities normal. No deformities, edema, or skindiscoloration. Good capillary refill.Peripheral pulses: NormalNeuro: Gait normal. Reflexes normal and symmetric. Sensation grosslyintact.DATA:CBC, Coags, BMP, Mg, PhosRecent Labs 03/21/1807WBC 4.27 4.24HB 15.2 14.8HCT 45.6 42.6PLT 117* 137*NA 138 135*K 3.6* 4.3CHLOR 98 95*CO2 27 23BUN 10 5*CREAT 0.71* 0.66*GLUC 101* 91CA 9.8 9.0CSF AND DilantinLiver Function, Amylase, AND LipaseRecent Labs 03/21/1807TPROT 8.1* 8.6*ALB 4.7 5.2*ALT 103* 123*AST 114* 154*ALKPHOS 79 83TBILI 0.7 0.4Cardiac EnzymesRadiology:Imaging reviewed and discussed with the patient.IN-PATIENT MEDICATIONS:Current hospital medications:meclizine 25 mg tab(s) (ANTIVERT) 25 mg ORAL TIDketorolac 10 mg tab(s) (TORADOL) 10 mg ORAL q 6 H PRNcholecalciferol 2,000 Units tab(s) (VITAMIN D3) 2,000 Units ORAL DAILYondansetron 4 mg tab(s) (ZOFRAN) 4 mg ORAL q 6 H PRNondansetron (PF) 4 mg injection (ZOFRAN) 4 mg INTRAMUSCULAR q 6 H PRNondansetron (PF) 4 mg injection (ZOFRAN) 4 mg INTRAVENOUS q 6 H PRNloperamide 2 mg cap(s) (IMODIUM) 2 mg ORAL q 4 H PRNnaloxone 0.4-0.8 mg injection (NARCAN) 0.4-0.8 mg INTRAMUSCULAR q 1 H PRNnicotine polacrilex 2 mg gum (NICORETTE) 2 mg ORAL q 2 H PRNLORazepam 2 mg tab(s) (ATIVAN) 2 mg ORAL q 4 H PRNLORazepam 2 mg injection (ATIVAN) 2 mg INTRAMUSCULAR q 4 H PRNLORazepam 2 mg injection (ATIVAN) 2 mg INTRAVENOUS q 4 H PRNfolic acid 1 mg tab(s) 1 mg ORAL DAILY WITH BREAKFASTmultivitamin-deng michael fumarate-folic acid 1 tablet (CENTRUM) 1 tablet ORALDAILY WITH BREAKFAST[START ON 03/25/2017] thiamine 100 mg (VITAMIN B1) 100 mg ORAL q 8 Hacetaminophen 1,000 mg tab(s) (TYLENOL) 1,000 mg ORAL q 6 H PRNgabapentin 300 mg cap(s) (NEURONTIN) 300 mg ORAL TIDdocusate sodium 100 mg cap(s) (COLACE) 100 mg ORAL BID PRNdocusate sodium 100 mg cap(s) (COLACE) 100 mg ORAL BID PRNchlordiazePOXIDE 25 mg cap(s) (LIBRIUM) 25 mg ORAL QID[START ON 03/23/2017] chlordiazePOXIDE 10 mg cap(s) (LIBRIUM) 10 mg ORAL QIDsucralfate 1,000 mg oral liquid (CARAFATE) 1,000 mg ORAL AC and HSgabapentin 300 mg cap(s) (NEURONTIN) 300 mg ORAL q 4 H PRNnicotine 21 mg/24 hr 1 Patch (NICODERM) 1 Patch TRANSDERMAL DAILYnicotine -- REMOVE patch OTHER DAILYnicotine - verify patch OTHER q 8 HhydrOXYzine HCl 25 mg tab(s) (ATARAX) 25 mg ORAL q 6 H PRNdoxepin 10 mg cap(s) (SINEquan) 10 mg ORAL HS PRNACTIVE PROBLEM LIST:ACTIVE PROBLEM LISTAbnormal LftsAlcohol AbuseSmokerAlcohol Dependence (Hcc)Malnutrition of Moderate Degree (Hcc)ASSESSMENT AND PLAN:1. Alcohol deto2 high lft possible possible etoh4. Mild pcmSIGNATURE: Alvaro Monroe, MDDATE: March 22, 2017TIME: 4:14 PM [facility] CONSULT HNO ID: [id number] Author: Akhil Rosado Service: Neurology Author Type: Physician Type: Consults Filed: 03/22/2017 2:00 PM Note Text: Post traumatic headache Patient's neuro exam non focal Will check Ct head start Toradol [facility] CT BRAIN WO IVCONon 03-22-19 CT BRAIN WO IVCON * * *Final Report* * *DATE OF EXAM: Mar 22 2017 4:38PM [place] 0504 - CT BRAIN WO IVCON / REASON: Headache * * * * Physician Interpretation * * * * EXAMINATION: CT BRAIN WITHOUT CONTRASTCLINICAL HISTORY: HeadacheTECHNIQUE: Routine CT scan of the brain without contrast. Serial axial unenhanced images were obtained from the vertex to the foramen magnum.M: [id number] Dose-Length Product (DLP): 649 mGy*cmCT Dose Reduction Employed: No dose reduction techniques were requiredCOMPARISON: None.RESULT:Post-operativ e change: None.Acute change: No evidence of an acute infarct or other acute parenchymal process.Hemorrhage: No evidence of acute intracranial hemorrhage.Mass effect / Mass lesion: There is no evidence of an intracranial mass or extraaxial fluid collection. No significant mass effect.Chronic change: None apparent.Ventricles: The ventricles are within normal limits of size and configuration for age.Paranasal sinuses and skull base: The visualized paranasal sinuses are clear. The skull base and imaged soft tissues are unremarkable.IMPRESSION:N O EVIDENCE OF AN ACUTE INTRACRANIAL PROCESS.Echo Tech: LUBA Transcribe Date/Time: Mar 22 2017 4:40PDictated by : LUIS GIL MDThis examination was interpreted and the report reviewed and electronically signed by: LUIS GIL MD on Mar 22 2017 4:44PM [id number] [facility] Comp Metabolic Panelon 03-22 Alanine aminotransferase (ALT) 103 U/L High 10-54 [facility] Comment on above: Performed By: #### Lesley DURAN UTOX2 ####[place] [id number] Albumin 4.7 g/dL Normal 3.9-4.9 [facility] Comment on above: Performed By: #### Lesley DURAN UTOX2 ####[place] [id number] Alkaline phosphatase (ALP) 79 U/L Normal 36-108 [facility] Comment on above: Performed By: #### Lesley DURAN UTOX2 ####[place] [id number] Anion gap 13 mmol/L Normal 9-18 [facility] Comment on above: Performed By: #### Lesley DURAN UTOX2 ####[place] [id number] Aspartate aminotransferase (AST) 114 U/L High 14-40 [facility] Comment on above: Performed By: #### Lesley DURAN UTOX2 ####[place] [id number] Bilirubin (total) 0.7 mg/dL Normal 0.2-1.3 [facility] Comment on above: Performed By: #### Lesley DURAN UTOX2 ####[place] [id number] Calcium 9.8 mg/dL Normal 8.5-10.2 [facility] Comment on above: Performed By: #### Lesley DURAN UTOX2 ####[place] [id number] Chloride 98 mmol/L Normal 97-105 [facility] Comment on above: Performed By: #### Lesley DURAN UTOX2 ####[place] [id number] CO2 27 mmol/L Normal 22-30 [facility] Comment on above: Performed By: #### U AWELIANA, UTOX2 ####[place] [id number] Creatinine 0.71 mg/dL Low 0.73-1.22 [facility] Comment on above: Performed By: #### U AWELIANA, UTOX2 ####[place] [id number] [place] [id number] eGFR (non-black) mL/min/{1.73_m2} Normal >60 [facility] Comment on above: Performed By: #### U AWELIANA, UTOX2 ####[place] [id number] Glucose mass conc 101 mg/dL High 74-99 [facility] Comment on above: Performed By: #### U AWELIANA, UTOX2 ####[place] [id number] Potassium molar conc 3.6 mmol/L Low 3.7-5.1 [facility] Comment on above: Performed By: #### U AWELIANA, UTOX2 ####[place] [id number] Protein 8.1 g/dL High 6.3-8.0 [facility] Comment on above: Performed By: #### U AWELIANA, UTOX2 ####[place] [id number] Sodium 138 mmol/L Normal 136-144 [facility] Comment on above: Performed By: #### U AWELIANA, UTOX2 ####[place] [id number] Urea nitrogen 10 mg/dL Normal 9-24 [facility] Comment on above: Performed By: #### U AWMIC, UTOX2 ####[place] [id number] GGTon 03-22-2017 GGT 345 U/L High 10-70 [facility] Comment on above: Performed By: #### U AWELIANA, UTOX2 ####[place] [id number] Hepatitis Remote Panelon BSA (Body Surface Area) Negative Normal Negative [facility] Comment on above: Performed By: #### U ROGER UTOX2 ####[place] [id number] Hep B Core Ab,Total Negative Normal Negative [facility] Comment on above: Performed By: #### Lesley DURAN UTOX2 ####[place] [id number] Hepatitis C Ab IA Negative Normal Negative [facility] Comment on above: Performed By: #### Lesley DURAN UTOX2 ####[place] [id number] HepB Surface Ab,Qual Negative Normal Negative [facility] Comment on above: Result Comment: NEGA TIVE Performed By: #### Lesley DURAN UTOX2 ####[place] [id number] Syphilis IgG with Confon Syphilis IgG <0.2 Normal [facility] Comment on above: Result Comment: Anti body index is interpreted as follows:Non reactive SPECIMENS <=0.8Weak reactive SPECIMENS 0.9 to 5.9Reactive SPECIMENS >=6.0 Performed By: #### Lesley DURAN UTOX2 ####[place] [id number] Syphilis IgG, Qual Nonreactive Normal Nonreactive [facility] Comment on above: Result Comment: In c onjunction with this result, the immune status of the patient should be evaluated based on their clinical status, related risk factors, and other diagnostic test results. Performed By: #### Lesley DURAN UTOX2 ####[place] [id number] TSHon 03-22-2017 Thyroid stimulating hormone (TSH) 3.270 uU/mL Normal 0.400-5.500 [facility] Comment on above: Performed By: #### ERICK BECKHAMOX2 ####[facility] [phone] ALLIED HEALTHon 03-21-2017 Creatinine HNO ID: [id number] thor: FLACO NguyễnSService: Recreational TherapyAuthor Type: TherapistType: Allied HealthFiled: 03/21/2017 3:17 PMNote Text:GROUP PROGRESS NOTESERVICE DATE: 03/21/2017SERVICE TIME: 1400Length (minutes): 60Attendance: Did Not AttendGROUP PARTICIPATION:Group Topics:Exercise: YogaSIGNATURE: VERONICA Nguyễn PATIENT NAME: Lon Turk: March 21, 2017 : 3:17 PM [facility] HNO ID: [id number] thor: Flores (Therapist) Johannae: Art TherapyAuthor Type: TherapistType: Allied HealthFiled: 03/21/2017 3:10 PMNote Text:THERAPEUTIC PROGRAMMING ASSESSMENTSERVICE DATE: 03/21/2017SERVICE TIME: 3:09 PMRECOMMENDATIONS:Patient not availableACTIVITIES OF DAILY LIVING (Difficulty in the following ADL areas):Pt not availableGENERAL OBSERVATIONS:SleepingASSE SSMENT COMPLETED: No: sleeping Therapist made multiple attempts toassess the pt throughout the day and pt was sleeping. Programming staffwill continue to work with the pt as he continues treatment.SIGNATURE: Flores Gates LPC AT PATIENT NAME: Lon JohnsTE: March 21, 2017 : 3:09 PM PAGER/CONTACT #: [facility] HNO ID: [id number] thor: Flores (Therapist) Johannae: Art TherapyAuthor Type: TherapistType: Allied HealthFiled: 03/21/2017 1:49 PMNote Text:GROUP PROGRESS NOTESERVICE DATE: 03/21/2017SERVICE TIME: 1100Length (minutes): 60Attendance: Did Not AttendParticipation Level: Did Not AttendParticipation Quality: did not attendGROUP PARTICIPATION:Group Topics:Coping Skills: Recovery JengaSIGNATURE: Flores Gates LPC AT PATIENT NAME: Lon JohnsTE: March 21, 2017 : 1:49 PM Normal [facility] CBC and Differentialon 03-21 Abs Baso 0.07 k/uL Normal <0.11 [facility] Comment on above: Performed By: #### C BCDIF, ALCO, CMP ####[place] [id number] Abs Leake 0.93 k/uL High <0.87 [facility] Comment on above: Performed By: #### C BCDIF, ALCO, CMP ####[place] [id number] Abs Neut 1.98 k/uL Normal 1.45-7.50 [facility] Comment on above: Performed By: #### C BCDIF ALCO, CMP ####[place] [id number] Basophils/100 WBC Auto (Bld) 1.7 % Normal [facility] Comment on above: Performed By: #### C BCDIF, ALCO, CMP ####[place] [id number] Eosinophils 0.08 10*3/uL Normal <0.46 [facility] Comment on above: Performed By: #### C BCDIF, ALCO, CMP ####[place] [phone] Eosinophils/100 leukocytes 1.9 % Normal [facility] Comment on above: Performed By: #### C BCDIF, ALCO, CMP ####[place] [id number] Erythrocyte distribution width Auto Ratio (RBC) 13.8 % Normal 11.5-15.0 [facility] Comment on above: Performed By: #### C BCDIF, ALCO, CMP ####[place] [id number] Erythrocytes (RBC) 4.48 10*6/uL Normal 4.20-6.00 [facility] Comment on above: Performed By: #### C BCDIF, ALCO, CMP ####[place] [phone] Erythrocytes (RBC) 0.0 /100 WBC Normal 0 [facility] Comment on above: Performed By: #### C BCDIF, ALCO, CMP ####[place] [phone] Hematocrit (HCT) 42.6 % Normal 39.0-51.0 [facility] Comment on above: Performed By: #### C BCDIF, ALCO, CMP ####[place] [phone] Hemoglobin mass conc (Bld) 14.8 g/dL Normal 13.0-17.0 [facility] Comment on above: Performed By: #### C BCDIF, ALCO, CMP ####[place] [phone] Lymphocytes 1.18 10*3/uL Normal 1.00-4.00 [facility] Comment on above: Performed By: #### C BCDIF, ALCO, CMP ####[place] [phone] Lymphocytes/100 leukocytes 27.8 % Normal [facility] Comment on above: Performed By: #### C BCDIF, ALCO, CMP ####[place] [id number] MCH 33.0 pG Normal 26.0-34.0 [facility] Comment on above: Performed By: #### C BCDIF, ALCO, CMP ####[place] [phone] MCHC mass conc (RBC) 34.7 g/dL Normal 30.5-36.0 [facility] Comment on above: Performed By: #### C BCDIF, ALCO, CMP ####[place] [id number] MCV 95.1 fL Normal 80.0-100.0 [facility] Comment on above: Performed By: #### C BCDIF, ALCO, CMP ####[place] [phone] Monocytes/100 leukocytes 21.9 % Normal [facility] Comment on above: Performed By: #### C BCDIF, ALCO, CMP ####[place] [phone] Neutrophils/100 WBC Auto (Bld) 46.7 % Normal [facility] Comment on above: Performed By: #### C BCDIF, ALCO, CMP ####[place] [phone] Platelet mean volume (PMV) 10.0 fL Normal 9.0-12.7 [facility] Comment on above: Performed By: #### C BCDIF, ALCO, CMP ####[place] [id number] Platelets 137 10*3/uL Low 150-400 [facility] Comment on above: Performed By: #### C BCDIF, ALCO, CMP ####[address] WBC (Leukocytes) 4.24 10*3/uL Normal 3.70-11.00 [facility] Comment on above: Performed By: #### C BCDIF, ALCO, CMP ####[place] [phone] Comp Metabolic Panelon 03-21 Alanine aminotransferase (ALT) 123 U/L High 10-54 [facility] Comment on above: Performed By: #### C BCDIF, ALCO, CMP ####[place] [phone] Albumin 5.2 g/dL High 3.9-4.9 [facility] Comment on above: Performed By: #### C BCDIF, ALCO, CMP ####[address] Alkaline phosphatase (ALP) 83 U/L Normal 36-108 [facility] Comment on above: Performed By: #### C BCDIF, ALCO, CMP ####[place] [phone] Anion gap 17 mmol/L Normal 9-18 [facility] Comment on above: Performed By: #### C BCDIF, ALCO, CMP ####[place] [phone] Aspartate aminotransferase (AST) 154 U/L High 14-40 [facility] Comment on above: Performed By: #### C BCDIF, ALCO, CMP ####[place] [phone] Bilirubin (total) 0.4 mg/dL Normal 0.2-1.3 [facility] Comment on above: Performed By: #### C BCDIF, ALCO, CMP ####[place] [id number] Calcium 9.0 mg/dL Normal 8.5-10.2 [facility] Comment on above: Performed By: #### C BCDIF, ALCO, CMP ####[place] [id number] Chloride 95 mmol/L Low 97-105 [facility] Comment on above: Performed By: #### C BCDIF, ALCO, CMP ####[place] [id number] CO2 23 mmol/L Normal 22-30 [facility] Comment on above: Performed By: #### C BCDIF, ALCO, CMP ####[place] [phone] Creatinine 0.66 mg/dL Low 0.73-1.22 [facility] Comment on above: Performed By: #### C BCDIF, ALCO, CMP ####[place] [id number] eGFR (non-black) mL/min/{1.73_m2} Normal >60 [facility] Comment on above: Performed By: #### C BCDIF, ALCO, CMP ####[place] [address] [place] [phone] Glucose mass conc 91 mg/dL Normal 74-99 [facility] Comment on above: Performed By: #### C BCDIF, ALCO, CMP ####[facility] [place] [id number] Potassium molar conc 4.3 mmol/L Normal 3.7-5.1 [facility] Comment on above: Performed By: #### C BCDIF, ALCO, CMP ####[place] [id number] Protein 8.6 g/dL High 6.3-8.0 [facility] Comment on above: Performed By: #### C BCDIF, ALCO, CMP ####[place] [id number] Sodium 135 mmol/L Low 136-144 [facility] Comment on above: Performed By: #### C BCDIF, ALCO, CMP ####[place] [address] [place] [id number] Urea nitrogen 5 mg/dL Low 9-24 [facility] Comment on above: Performed By: #### C BCDIF, ALCO, CMP ####[place] [address] [place] [phone] ED NOTEon 03-21-2017 ED NOTE HNO ID: [id number] Author: James Duncan) Robin RN Service: Nursing Author Type: Registered Nurse Type: ED Notes Filed: 03/21/2017 9:31 AM Note Text: Medications explained to pt. Pt verbalized understanding. In agreement with plan of care. [facility] ED NOTE HNO ID: [id number] Author: James Duncan) Robin RN Service: Nursing Author Type: Registered Nurse Type: ED Notes Filed: 03/21/2017 9:09 AM Note Text: Urine specimen obtained and sent. [facility] ED NOTE HNO ID: [id number] Author: Iglesia Campos (Medic) Jsoe Baires Service: (none) Author Type: Squeak Rattle And Leak Repairer and Electric Blasting Cap Assembler Type: ED Notes Filed: 03/21/2017 8:28 AM Note Text: PT requesting detox from alcohol. [facility] ED PROV NOTEon 03-21-2017 ED PROV NOTE HNO ID: [id number] thor: Chris Khan, MDService: (none)Author Type: PhysicianType: ED Provider NotesFiled: 03/21/2017 9:47 AMNote Text:ED Provider NotePatient Name: Lon BurksMRN: [id number] DATE: 03/21/17HistoryPatient presents with:Alcohol ProblemHPI Comments: 41-year-old male presents to emergency room complaining ofalcohol dependence. He states that he has been drinking about 30 beersdaily for years. He is requesting detox. He denies any homicidal orsuicidal ideations. He denies any fevers or chills. He denies anyexacerbating or alleviating factors. He states he last drank earliertoday.History provided by: PatientLanKaritKarma science interpreter used: NoNo past medical history on file.No past surgical history on file.No family history on file.Social HistorySocial History Main Topics- Smoking status: Current Every Day Smoker Packs/day: 1.00 Types: Cigarettes- Smokeless tobacco: Never Used- Alcohol use Yes- Drug use: Yes Special: Cocaine, Marijuana- Sexual activity: Not AskedALLERGIESNo Known AllergiesReview of SystemsConstitutional: Negative. Negative for chills and fever.HENT: Negative.Eyes: Negative.Respiratory: Negative.Cardiovascular: Negative.Gastrointestinal : Negative.Endocrine: Negative.Genitourinary: Negative.Musculoskeletal: Negative.Skin: Negative.Allergic/Immunol ogic: Negative.Neurological: Negative.Hematological: Negative.Psychiatric/Beha vioral: Positive for behavioral problems. Negative forsuicidal ideas.All other systems reviewed and are negative.Physical ExamBP 146/114 Pulse 82 Temp (Src) 97.7 (Oral) Resp 18 Ht 5' 8"(1.73m) Wt 145 lb (65.8kg) SpO2 96% BMI 22.05 kg/(m2).Physical ExamConstitutional: He is oriented to person, place, and time. He appearswell-developed and well-nourished. He is cooperative.HENT:Head: Normocephalic and atraumatic.Nose: Nose normal.Mouth/Throat: Oropharynx is clear and moist.Eyes: Conjunctivae, EOM and lids are normal. Pupils are equal, round, andreactive to light.Neck: Trachea normal, normal range of motion, full passive range of motionwithout pain and phonation normal. Neck supple.Cardiovascular: Normal rate, regular rhythm, S1 normal, S2 normal, normalheart sounds, intact distal pulses and normal pulses. Exam reveals nogallop.No murmur heard.Pulmonary/Chest: Effort normal and breath sounds normal.Abdominal: Soft. Normal appearance and bowel sounds are normal. There isno tenderness.Musculoskeleta l: Normal range of motion.Neurological: He is alert and oriented to person, place, and time. He hasnormal strength. He displays tremor. No cranial nerve deficit or sensorydeficit. GCS eye subscore is 4. GCS verbal subscore is 5. GCS motorsubscore is 6.Skin: Skin is warm, dry and intact.Psychiatric: He has a normal mood and affect. His speech is normal andbehavior is normal. Judgment and thought content normal. Cognition andmemory are normal.Nursing note and vitals reviewed.Diagnostic TestingED Labs Ordered and ReviewedCBC + AUTO DIFF (AK,AV,EU,FV,HL,RODDY,MM,SP) - Abnormal; Notable for thefollowing: Result Value Ref Range Platelet Count 137 (*) 150 - 400 k/uL Abs Leake 0.93 (*) <0.87 k/uL All other components within normal limitsCOMPREHENSIVE METABOLIC PANEL (AK,AV,EU,FV,HL,RODDY,MM,SP) - Abnormal;Notable for the following: Protein, Total 8.6 (*) 6.3 - 8.0 g/dL Albumin 5.2 (*) 3.9 - 4.9 g/dL AST 154 (*) 14 - 40 U/L BUN 5 (*) 9 - 24 mg/dL Creatinine 0.66 (*) 0.73 - 1.22 mg/dL Sodium 135 (*) 136 - 144 mmol/L Chloride 95 (*) 97 - 105 mmol/L ALT 123 (*) 10 - 54 U/L All other components within normal limitsALCOHOL / ETHANOL BLOOD (AK,AV,EU,FV,HL,RODDY,MM,SP) - Abnormal; Notable forthe following: Ethanol 373 (*) <11 mg/dL All other components within normal limitsURINE DRUG SCREEN (AK,AV,EU,FV,HL,RODDY,MM,SP) - Abnormal; Notable for thefollowing: Ethanol, Urine 417 (*) <11 mg/dL All other components within normal limitsURINALYSIS WITH MICROSCOPIC (AK,AV,EU,FV,HL,RODDY,MM,SP) - Abnormal; Notablefor the following: Color Straw (*) Yellow All other components within normal limitsED EKG INTERPRETATION: Normal sinus rhythm at 76 beats per minuteNormal axisNormal intervalsRVHNormal ST-T segmentsInterpretation by ED physicianProceduresMedica l Decision Making / ED CourseED CoursePatient's prior medical records [facility] were reviewedDifferential diagnosis: Alcohol dependence, alcohol intoxication, alcoholwithdrawalED interventions: Librium, thiamine, folic acid, IV nltirc31:45 Medically ClearEncounter Diagnosis ICD-10-CM1. Alcohol dependence with uncomplicated withdrawal (HCC) F10.2302. Hyponatremia E87.1PlanThe Patient was ADMITTED TO: detox.Condition at time of disposition: stableSIGNATURE: Mike Last MD03/21/17 0947 Normal [facility] Ethanolon 03-21-2017 Ethanol 373 mg/dL High <11 [facility] Comment on above: Performed By: #### C BCDREW, ALCO, CMP ####[facility] [id number] NURSING PROGon 03-21-2017 NURSING PROG HNO ID: [id number] thor: Rosa Elena Dooley (Rn) Serenity Hallmanice: (none)Author Type: Registered NurseType: Nursing Progress NoteFiled: 03/22/2017 5:42 AMNote Text: Nursing Progress NotePatient Name: Lon BurksMRN: [id number] Location: [address]/[place] [address]* Daily Note:1900 Assumed care of patient. Observed patient resting in bed. No distressnoted. Will continue to monitor.?2100 CIWA=4. Moderate tremors observed. Scheduled librium given. AANDOx3.Gait unsteady. Fall precautions in place. IV thiamine given. Patientpleasant and cooperative with medications. No distress noted. Willcontinue to monitor. BP 134/86 Pulse 94 Temp 37.1 ?C (98.8 ?F) (Oral) Resp 16 Ht 172.7 cm (5' 8") Wt 65.8 kg (145 lb) SpO2 95% BMI22.05 kg/m2?0500 CIWA=4. Scheduled librium given. No distress noted. Will continue tomonitor. BP 124/92 Pulse 77 Temp 36.4 ?C (97.5 ?F) (Temporal Artery) Resp 18 Ht 172.7 cm (5' 8") Wt 65.8 kg (145 lb) SpO2 96% BMI 22.05kg/w00747 Report given to on-coming nurse.This note was completed by: Rosa Elena Hallman RN [facility] Toxicology Screen,Uron 03-21 Amphetamines, Urine Negative Normal Negative [facility] Comment on above: Result Comment: Cuto ff threshold at 1000 ng/mL.Detection of any drug(s) is presumptive only. For confirmation by alternative methods contact the Laboratory within 5 days. For medical purposes only. Documented cross-reactivities (false positives) on file in Laboratory. Performed By: #### U ROGER, UTOX2 ####[address] [phone] Barbiturates, Urine Negative Normal Negative [facility] Comment on above: Result Comment: Cuto ff threshold at 200 ng/mL.Detection of any drug(s) is presumptive only. For confirmation by alternative methods contact the Laboratory within 5 days. For medical purposes only. Documented cross-reactivities (false positives) on file in Laboratory. Performed By: #### U AWELIANA, UTOX2 ####[place] [phone] Benzodiazepines, Ur Negative Normal Negative [facility] Comment on above: Result Comment: Cuto ff threshold at 200 ng/mL.Detection of any drug(s) is presumptive only. For confirmation by alternative methods contact the Laboratory within 5 days. For medical purposes only. Documented cross-reactivities (false positives) on file in Laboratory. Performed By: #### U AWMIC, UTOX2 ####[place] [phone] Cannabinoids, Urine Negative Normal Negative [facility] Comment on above: Result Comment: Cuto ff threshold at 50 ng/mL.Detection of any drug(s) is presumptive only. For confirmation by alternative methods contact the Laboratory within 5 days. For medical purposes only. Documented cross-reactivities (false positives) on file in Laboratory. Performed By: #### U AWMIC, UTOX2 ####[place] [phone] Cocaine, Urine Negative Normal [facility] Comment on above: Result Comment: Cuto ff threshold at 300 ng/mL.Detection of any drug(s) is presumptive only. For confirmation by alternative methods contact the Laboratory within 5 days. For medical purposes only. Documented cross-reactivities (false positives) on file in Laboratory. Performed By: #### U AWMIC, UTOX2 ####[place] [phone] Ethanol, Urine 417 mg/dL High <11 [facility] Comment on above: Performed By: #### U AWMIC, UTOX2 ####[place] [phone] Opiates, Urine Negative Normal Negative [facility] Comment on above: Result Comment: Cuto ff threshold at 300 ng/mL.Detection of any drug(s) is presumptive only. For confirmation by alternative methods contact the Laboratory within 5 days. For medical purposes only. Documented cross-reactivities (false positives) on file in Laboratory. Performed By: #### U AWMIC, UTOX2 ####[place] [phone] Oxycodone, Urine Negative Normal Negative [facility] Comment on above: Result Comment: Cuto ff threshold at 100 ng/mL.Detection of any drug(s) is presumptive only. For confirmation by alternative methods contact the Laboratory within 5 days. For medical purposes only. Documented cross-reactivities (false positives) on file in Laboratory. Performed By: #### U AWMIC, UTOX2 ####[place] [phone] Phencyclidine, Urine Negative Normal Negative [facility] Comment on above: Result Comment: Cuto ff threshold at 25 ng/mL.Detection of any drug(s) is presumptive only. For confirmation by alternative methods contact the Laboratory within 5 days. For medical purposes only. Documented cross-reactivities (false positives) on file in Laboratory. Performed By: #### U AWMIC, UTOX2 ####[place] [phone] Urinalysis with Microscopico n 03-21-2017 Bilirubin, Urine Negative Normal [facility] Comment on above: Performed By: #### U AWELIANA, UTOX2 ####[place] [phone] Cast SEE COMMENT Normal 0 [facility] Comment on above: Result Comment: 0 Performed By: #### U AWMIC, UTOX2 ####[place] [phone] Erythrocytes (RBC) 0-3 Normal 0-3 [facility] Comment on above: Performed By: #### U AWMIC, UTOX2 ####[place] [phone] Hemoglobin mass conc (Bld) Negative Normal Negative [facility] Comment on above: Performed By: #### U AWMIC, UTOX2 ####[place] [phone] Leukest Negative Normal [facility] Comment on above: Performed By: #### U AWMIC, UTOX2 ####[place] [phone] pH of blood 6.5 [pH] Normal 4.5-8.0 [facility] Comment on above: Performed By: #### U AWMIC, UTOX2 ####[place] [id number] Protein, Urine Negative Normal Negative [facility] Comment on above: Performed By: #### U AWMIC, UTOX2 ####[place] [phone] Specific [place], Ur <=1.005 Normal 1.005-1.[address] [facility] Comment on above: Performed By: #### U AWMIC, UTOX2 ####[place] [phone] Urine, clarity Clear Normal Clear [facility] Comment on above: Performed By: #### U AWMIC, UTOX2 ####[place] [phone] Urine, color Straw Critically abnormal Yellow [facility] Comment on above: Performed By: #### U AWMIC, UTOX2 ####[place] [phone] Urine, glucose presence Negative Normal [facility] Comment on above: Performed By: #### U AWMIC, UTOX2 ####[place] [id number] Urine, ketones presence Negative Normal Negative [facility] Comment on above: Performed By: #### U AWMIC, UTOX2 ####[place] [phone] Urine, nitrite presence Negative Normal [facility] Comment on above: Performed By: #### U AWMIC, UTOX2 ####[place] [phone] Urine, urobilinogen 0.2 Normal 0.2-1.0 [facility] Comment on above: Performed By: #### U AWMIC, UTOX2 ####[place] [phone] WBC (Leukocytes) 0-5 Normal 0-5 [facility] Comment on above: Performed By: #### U ROGER, UTOX2 ####[facility] [phone] CT BRAIN W/O CONTRASTon CT BRAIN W/O CONTRAST Final ReportAccession No: [id number] Performed: Feb 18 2017 10:33PMExamination: CT BRAIN W/O CONTRASTHISTORY: Head trauma on 02/02/2017. Tinnitus. History of alcoholism.CT BRAIN WITHOUT CONTRAST ON 02/18/17 AT 10:33 P.M.:COMPARISON: No comparison images available.TECHNIQUE: CT of the head was performed without contrast and the imageswere submitted for interpretation.FINDINGS: There is mild posterior scalp swelling, without associatedfracture. There is no evidence of acute intracranial hemorrhage, masseffect, or large vessel infarction. The ventricles, sulci, and dickerson-whitedifferentiation are within normal limits for the patient?s age. Theposterior fossa structures are unremarkable. The paranasal sinuses andmastoids air cells are well aerated. The imaged orbits are grosslyunremarkable.IMPRE SSION:1. No acute intracranial abnormality.2. There is mild posterior scalp swelling without associated fracture.Roger Avilez M.D. and Yazan Flores M.D.Roger Avilez MD.AW/AWElectronically Signed by and VerifiedDate Report Signed: 02/19/2017 4:44:36 PMInterpreting Physician: AZUCENA,Trans: [id number] : cc: Normal [facility] Vital Signs Date Time Vital Sign Value Performing Clinician Facility 01-11-2025 08:55-0400 Diastolic blood pressure 98 mm[Hg] Naun Acuña PA-C Work Phone: [facility] 01-11-2025 08:55-0400 Heart rate 70 /min Naun Acuña PA-C Work Phone: [facility] 01-11-2025 08:55-0400 SaO2% (BldA) [Mass fraction] 98 % Naun Acuña PA-C Work Phone: [facility] 01-11-2025 08:55-0400 Systolic blood pressure 143 mm[Hg] Naun Fair PA-C Work Phone: [facility] 12-14-2024 09:19-0400 Diastolic blood pressure 95 mm[Hg] Naun Fair PA-C Work Phone: [facility] 12-14-2024 09:19-0400 Heart rate 85 /min Naun Fair PA-C Work Phone: [facility] 12-14-2024 09:19-0400 SaO2% (BldA) [Mass fraction] 95 % Naun Fair PA-C Work Phone: [facility] 12-14-2024 09:19-0400 Systolic blood pressure 133 mm[Hg] Naun Fair PA-C Work Phone: [facility] 11-24-2024 08:39-0400 Body temperature 98.1 [degF] Naun Fair PA-C Work Phone: [facility] 11-24-2024 08:39-0400 Diastolic blood pressure 86 mm[Hg] Naun Fair PA-C Work Phone: [facility] 11-24-2024 08:39-0400 Heart rate 75 /min Naun Fair PA-C Work Phone: [facility] 11-24-2024 08:39-0400 SaO2% (BldA) [Mass fraction] 98 % Naun Fair PA-C Work Phone: [facility] 11-24-2024 08:39-0400 Systolic blood pressure 124 mm[Hg] Naun Fair PA-C Work Phone: [facility] 11-10-2024 12:53-0400 Respiratory rate 15 /min Ricky Martell MD Work Phone: [facility] 11-10-2024 12:16-0400 Body temperature 97.3 [degF] Ricky Martell MD Work Phone: [facility] 11-10-2024 12:16-0400 Diastolic blood pressure 76 mm[Hg] Ricky Martell MD Work Phone: [facility] 11-10-2024 12:16-0400 Heart rate 60 /min Ricky Martell MD Work Phone: [facility] 11-10-2024 12:16-0400 SaO2% (BldA) [Mass fraction] 97 % Ricky Martell MD Work Phone: [facility] 11-10-2024 12:16-0400 Systolic blood pressure 110 mm[Hg] Ricky Martell MD Work Phone: [facility] 11-09-2024 12:31-0400 Body height 172.7 cm Ricky Martell MD Work Phone: [facility] 11-09-2024 12:31-0400 Body mass index (BMI) [Ratio] 22.26 kg/m2 Ricky Martell MD Work Phone: [facility] 11-09-2024 12:31-0400 Body weight 66.4 kg Ricky Martell MD Work Phone: [facility] 10-05-2024 10:57-0400 Diastolic blood pressure 83 mm[Hg] Naun Acuña PA-C Work Phone: [facility] 10-05-2024 10:57-0400 Heart rate 80 /min Naun Acuña PA-C Work Phone: [facility] 10-05-2024 10:57-0400 SaO2% (BldA) [Mass fraction] 99 % Naun Fair PA-C Work Phone: [facility] 10-05-2024 10:57-0400 Systolic blood pressure 125 mm[Hg] Naun Fair PA-C Work Phone: [facility] 07-20-2024 13:19-0400 Body height 172.7 cm Rylie Gore CNP Work Phone: [facility] 07-20-2024 13:19-0400 Body mass index (BMI) [Ratio] 22.24 kg/m2 Rylie Gore SECOND MATE Work Phone: [facility] 07-20-2024 13:19-0400 Body temperature 97.9 [degF] Rylie Gore SECOND MATE Work Phone: [facility] 07-20-2024 13:19-0400 Body weight 66.36 kg Rylie Gore CNP Work Phone: [facility] 07-20-2024 13:19-0400 Diastolic blood pressure 87 mm[Hg] Rylie Gore SECOND MATE Work Phone: [facility] 07-20-2024 13:19-0400 Heart rate 72 /min Rylie Gore SECOND MATE Work Phone: [facility] 07-20-2024 13:19-0400 Respiratory rate 12 /min Rylie oGre SECOND MATE Work Phone: [facility] 07-20-2024 13:19-0400 SaO2% (BldA) [Mass fraction] 97 % Rylie Gore SECOND MATE Work Phone: [facility] 07-20-2024 13:19-0400 Systolic blood pressure 134 mm[Hg] Rylie Gore SECOND MATE Work Phone: [facility] 07-13-2024 07:56-0400 Body temperature 97.4 [degF] RYLIE GORE Work Phone: [facility] 07-13-2024 07:56-0400 Diastolic blood pressure 94 mm[Hg] RYLIE GORE Work Phone: [facility] 07-13-2024 07:56-0400 Heart rate 63 /min RYLIE GORE Work Phone: [facility] 07-13-2024 07:56-0400 Respiratory rate 16 /min RYLIE GORE Work Phone: [facility] 07-13-2024 07:56-0400 SaO2% (BldA) [Mass fraction] 100 % RYLIE GORE Work Phone: [facility] 07-13-2024 07:56-0400 Systolic blood pressure 127 mm[Hg] RYLIE GORE Work Phone: [facility] 07-13-2024 05:06-0400 Body mass index (BMI) [Ratio] 21.6 kg/m2 RYLIE GORE Work Phone: [facility] 07-13-2024 05:06-0400 Body weight 64.8 kg RYLIE GORE Work Phone: [facility] 07-11-2024 16:29-0400 Body height 172.72 cm RYLIE GORE Work Phone: [facility] 07-10-2024 21:00-0400 Diastolic blood pressure 90 mm[Hg] RYLIE GORE Work Phone: [facility] 07-10-2024 21:00-0400 SaO2% (BldA) [Mass fraction] 95 % RYLIE GORE Work Phone: [facility] 07-10-2024 21:00-0400 Systolic blood pressure 125 mm[Hg] RYLIE GORE Work Phone: [facility] 07-10-2024 20:22-0400 Body temperature 98.5 [degF] RYLIE GORE Work Phone: [facility] 07-10-2024 20:22-0400 Heart rate 95 /min RYLIE GORE Work Phone: [facility] 07-10-2024 20:22-0400 Respiratory rate 16 /min RYLIE GORE Work Phone: [facility] 07-10-2024 16:44-0400 Body height 172.72 cm RYLIE GORE Work Phone: [facility] 03-19-2024 15:57-0500 Diastolic blood pressure 95 mm[Hg] Blanca Corey SECOND MATE Work Phone: [facility] Comment on above: recheck 03-19-2024 15:57-0500 Systolic blood pressure 139 mm[Hg] Blanca Corey SECOND MATE Work Phone: [facility] Comment on above: recheck 03-19-2024 15:55-0500 Body height 172.7 cm Blanca Corey CNP Work Phone: [facility] 03-19-2024 15:55-0500 Body mass index (BMI) [Ratio] 21.9 kg/m2 Blanca Corey CNP Work Phone: [facility] 03-19-2024 15:55-0500 Body temperature 98.2 [degF] Blanca Corey CNP Work Phone: [facility] 03-19-2024 15:55-0500 Body weight 65.32 kg Blanca Corey CNP Work Phone: [facility] 03-19-2024 15:55-0500 Heart rate 83 /min Blanca Corey CNP Work Phone: [facility] 03-19-2024 15:55-0500 Respiratory rate 18 /min Blanca Corey CNP Work Phone: [facility] 03-19-2024 15:55-0500 SaO2% (BldA) [Mass fraction] 96 % Blanca Corey CNP Work Phone: [facility] 08-22-2023 15:21-0400 Body height 172.7 cm Rylie Gore SECOND MATE Work Phone: [facility] 08-22-2023 15:21-0400 Body mass index (BMI) [Ratio] 24.02 kg/m2 Rylie Gore SECOND MATE Work Phone: [facility] 08-22-2023 15:21-0400 Body temperature 98.2 [degF] Rylie Gore SECOND MATE Work Phone: [facility] 08-22-2023 15:21-0400 Body weight 71.67 kg Rylie Gore SECOND MATE Work Phone: [facility] 08-22-2023 15:21-0400 Diastolic blood pressure 85 mm[Hg] Rylie Gore SECOND MATE Work Phone: [facility] 08-22-2023 15:21-0400 Heart rate 86 /min Rylie Gore SECOND MATE Work Phone: [facility] 08-22-2023 15:21-0400 Respiratory rate 14 /min Rylie Gore SECOND MATE Work Phone: [facility] 08-22-2023 15:21-0400 SaO2% (BldA) [Mass fraction] 92 % Rylie Gore SECOND MATE Work Phone: [facility] 08-22-2023 15:21-0400 Systolic blood pressure 136 mm[Hg] Rylie Gore SECOND MATE Work Phone: [facility] 05-01-2023 10:28-0500 Diastolic blood pressure 75 mm[Hg] Andrés Hagen MD Work Phone: [facility] 05-01-2023 10:28-0500 Heart rate 85 /min Andrés Hagen MD Work Phone: [facility] 05-01-2023 10:28-0500 Respiratory rate 15 /min Andrés Hagen MD Work Phone: [facility] 05-01-2023 10:28-0500 SaO2% (BldA) [Mass fraction] 100 % Andrés Hagen MD Work Phone: [facility] 05-01-2023 10:28-0500 Systolic blood pressure 110 mm[Hg] Andrés Hagen MD Work Phone: [facility] 05-01-2023 09:53-0500 Body temperature 97.2 [degF] Andrés Hagen MD Work Phone: [facility] 05-01-2023 08:37-0500 Body mass index (BMI) [Ratio] 23.57 kg/m2 Andrés Hagen MD Work Phone: [facility] 05-01-2023 08:37-0500 Body weight 70.31 kg Andrés Hagen MD Work Phone: [facility] 04-21-2023 12:38-0500 Diastolic blood pressure 79 mm[Hg] Tato Kaminski MD Work Phone: [facility] 04-21-2023 12:38-0500 Heart rate 76 /min Tato Kaminski MD Work Phone: [facility] 04-21-2023 12:38-0500 Respiratory rate 12 /min Tato Kaminski MD Work Phone: [facility] 04-21-2023 12:38-0500 SaO2% (BldA) [Mass fraction] 99 % Tato Kaminski MD Work Phone: [facility] 04-21-2023 12:38-0500 Systolic blood pressure 117 mm[Hg] Tato Kaminski MD Work Phone: [facility] 04-21-2023 11:43-0500 Body temperature 98.01 [degF] Tato Kaminski MD Work Phone: [facility] 03-05-2023 08:09-0500 Body temperature 98.91 [degF] Jt Alfredo MD Work Phone: [facility] 03-05-2023 08:09-0500 Diastolic blood pressure 89 mm[Hg] Jt Alfredo MD Work Phone: [facility] 03-05-2023 08:09-0500 Heart rate 71 /min Jt Alfredo MD Work Phone: [facility] 03-05-2023 08:09-0500 Respiratory rate 18 /min Jt Alfredo MD Work Phone: [facility] 03-05-2023 08:09-0500 SaO2% (BldA) [Mass fraction] 94 % Jt Alfredo MD Work Phone: [facility] 03-05-2023 08:09-0500 Systolic blood pressure 154 mm[Hg] Jt Alfredo MD Work Phone: [facility] 03-04-2023 18:35-0500 Body height 172.7 cm Rylie Sofía SALDAÑA Work Phone: [facility] 03-04-2023 18:35-0500 Body mass index (BMI) [Ratio] 21.08 kg/m2 Jt Alfredo MD Work Phone: [facility] 03-04-2023 18:35-0500 Body weight 62.9 kg Jt Alfredo MD Work Phone: [facility] 03-04-2023 07:00-0500 Body mass index (BMI) [Ratio] 21.07 kg/m2 Rylie Gore SECOND MATE Work Phone: [facility] 03-04-2023 07:00-0500 Body temperature 98.8 [degF] Rylie Gore SECOND MATE Work Phone: [facility] 03-04-2023 07:00-0500 Body weight 62.87 kg Rylie Gore SECOND MATE Work Phone: [facility] 03-04-2023 07:00-0500 Diastolic blood pressure 83 mm[Hg] Rylie Gore SECOND MATE Work Phone: [facility] 03-04-2023 07:00-0500 Heart rate 103 /min Rylie Gore SECOND MATE Work Phone: [facility] 03-04-2023 07:00-0500 Respiratory rate 14 /min Rylie Gore SECOND MATE Work Phone: [facility] 03-04-2023 07:00-0500 SaO2% (BldA) [Mass fraction] 88 % Rylie Gore SECOND MATE Work Phone: [facility] 03-04-2023 07:00-0500 Systolic blood pressure 121 mm[Hg] Rylie Gore SECOND MATE Work Phone: [facility] 10-24-2022 11:03-0400 Diastolic blood pressure 84 mm[Hg] Rylie Gore SECOND MATE Work Phone: [facility] 10-24-2022 11:03-0400 Systolic blood pressure 133 mm[Hg] Rylie Gore SECOND MATE Work Phone: [facility] 10-24-2022 11:02-0400 Body height 172.7 cm Rylie Gore SECOND MATE Work Phone: [facility] 10-24-2022 11:02-0400 Body mass index (BMI) [Ratio] 22.78 kg/m2 Rylie Gore CNP Work Phone: [facility] 10-24-2022 11:02-0400 Body temperature 99.3 [degF] Rylie Gore CNP Work Phone: [facility] 10-24-2022 11:02-0400 Body weight 67.95 kg Rylie Gore CNP Work Phone: [facility] 10-24-2022 11:02-0400 Heart rate 90 /min Rylie Gore CNP Work Phone: [facility] 10-24-2022 11:02-0400 Respiratory rate 14 /min Rylie Gore CNP Work Phone: [facility] 10-24-2022 11:02-0400 SaO2% (BldA) [Mass fraction] 96 % Rylie Gore SECOND MATE Work Phone: [facility] 10-03-2022 15:30-0400 Body temperature 98.1 [degF] Nikki Carson MD Work Phone: [facility] 10-03-2022 15:30-0400 Diastolic blood pressure 104 mm[Hg] Nikki Carson MD Work Phone: [facility] 10-03-2022 15:30-0400 Heart rate 73 /min Nikki Carson MD Work Phone: [facility] 10-03-2022 15:30-0400 Respiratory rate 22 /min Nikki Carson MD Work Phone: [facility] 10-03-2022 15:30-0400 Systolic blood pressure 124 mm[Hg] Nikki Carson MD Work Phone: [facility] 10-03-2022 12:00-0400 SaO2% (BldA) [Mass fraction] 100 % Nikki Carson MD Work Phone: [facility] 10-02-2022 04:25-0400 Body height 172.7 cm Nikki Carson MD Work Phone: [facility] 10-02-2022 04:25-0400 Body mass index (BMI) [Ratio] 22.83 kg/m2 Nikki Carson MD Work Phone: [facility] 10-02-2022 04:25-0400 Body weight 68.1 kg Nikki Carson MD Work Phone: [facility] 09-28-2022 07:24-0400 Body temperature 98.4 [degF] Jt Alfredo MD Work Phone: [facility] 09-28-2022 07:24-0400 Diastolic blood pressure 80 mm[Hg] Jt Alfredo MD Work Phone: [facility] 09-28-2022 07:24-0400 Heart rate 71 /min Jt Alfredo MD Work Phone: [facility] 09-28-2022 07:24-0400 Respiratory rate 16 /min Jt Alfredo MD Work Phone: [facility] 09-28-2022 07:24-0400 SaO2% (BldA) [Mass fraction] 94 % Jt Alfredo MD Work Phone: [facility] 09-28-2022 07:24-0400 Systolic blood pressure 122 mm[Hg] Jt Alfredo MD Work Phone: [facility] 09-27-2022 02:23-0400 Body height 172.7 cm Jt Alfredo MD Work Phone: [facility] 09-26-2022 21:40-0400 Body mass index (BMI) [Ratio] 17.52 kg/m2 Jt Alfredo MD Work Phone: [facility] 09-26-2022 21:40-0400 Body weight 52.25 kg Jt Alfredo MD Work Phone: [facility] 06-18-2022 11:23-0400 Body temperature 97.7 [degF] RYLIE GORE Work Phone: [facility] 06-18-2022 11:23-0400 Diastolic blood pressure 87 mm[Hg] RYLIE GORE Work Phone: [facility] 06-18-2022 11:23-0400 Heart rate 88 /min RYLIE GORE Work Phone: [facility] 06-18-2022 11:23-0400 Respiratory rate 18 /min RYLIE GORE Work Phone: [facility] 06-18-2022 11:23-0400 SaO2% (BldA) [Mass fraction] 100 % RYLIE GORE Work Phone: [facility] 06-18-2022 11:23-0400 Systolic blood pressure 125 mm[Hg] RYLIE GORE Work Phone: [facility] 06-15-2022 11:57-0400 Body height 172.72 cm RYLIE GORE Work Phone: [facility] 06-15-2022 11:57-0400 Body weight 60.32 kg RYLIE GORE Work Phone: [facility] 06-14-2022 17:30-0400 Body mass index (BMI) [Ratio] 20.2 kg/m2 RYLIE GORE Work Phone: [facility] 06-01-2022 09:26-0400 Diastolic blood pressure 95 mm[Hg] Rylie Gore SECOND MATE Work Phone: [facility] 06-01-2022 09:26-0400 SaO2% (BldA) [Mass fraction] 94 % Rylie Gore SECOND MATE Work Phone: [facility] 06-01-2022 09:26-0400 Systolic blood pressure 135 mm[Hg] Rylie Gore SECOND MATE Work Phone: [facility] 06-01-2022 09:19-0400 Body height 172.7 cm Rylie Gore SECOND MATE Work Phone: [facility] 06-01-2022 09:19-0400 Body mass index (BMI) [Ratio] 20.98 kg/m2 Rylie Gore SECOND MATE Work Phone: [facility] 06-01-2022 09:19-0400 Body temperature 99.1 [degF] Rylie Gore SECOND MATE Work Phone: [facility] 06-01-2022 09:19-0400 Body weight 62.6 kg Rylie Gore SECOND MATE Work Phone: [facility] 06-01-2022 09:19-0400 Heart rate 105 /min Rylie Gore SECOND MATE Work Phone: [facility] 06-01-2022 09:19-0400 Respiratory rate 16 /min Rylie Gore SECOND MATE Work Phone: [facility] 05-22-2022 11:45-0500 Diastolic blood pressure 77 mm[Hg] Luis Will MD Work Phone: [facility] 05-22-2022 11:45-0500 Heart rate 70 /min Luis Will MD Work Phone: [facility] 05-22-2022 11:45-0500 Respiratory rate 14 /min Luis Will MD Work Phone: [facility] 05-22-2022 11:45-0500 SaO2% (BldA) [Mass fraction] 91 % Luis Will MD Work Phone: [facility] 05-22-2022 11:45-0500 Systolic blood pressure 114 mm[Hg] Luis Will MD Work Phone: [facility] 05-22-2022 10:24-0500 Body temperature 97.9 [degF] Luis Will MD Work Phone: [facility] 04-09-2022 07:13-0500 Diastolic blood pressure 98 mm[Hg] Rylie Gore SECOND MATE Work Phone: [facility] 04-09-2022 07:13-0500 Heart rate 84 /min Rylie Gore SECOND MATE Work Phone: [facility] 04-09-2022 07:13-0500 SaO2% (BldA) [Mass fraction] 96 % Rylie Gore SECOND MATE Work Phone: [facility] 04-09-2022 07:13-0500 Systolic blood pressure 134 mm[Hg] Rylie Gore SECOND MATE Work Phone: [facility] 04-09-2022 07:11-0500 Body height 172.7 cm Rylie Gore SECOND MATE Work Phone: [facility] 04-09-2022 07:11-0500 Body mass index (BMI) [Ratio] 21.5 kg/m2 Rylie Gore CNP Work Phone: [facility] 04-09-2022 07:11-0500 Body temperature 98.49 [degF] Rylie Gore SECOND MATE Work Phone: [facility] 04-09-2022 07:11-0500 Body weight 64.14 kg Rylie Gore SECOND MATE Work Phone: [facility] 04-09-2022 07:11-0500 Respiratory rate 16 /min Rylie Gore CNP Work Phone: [facility] 03-08-2022 08:08-0500 Body height 172.7 cm Karl Summers MD Work Phone: [facility] 03-08-2022 08:08-0500 Body mass index (BMI) [Ratio] 20.98 kg/m2 Karl Summers MD Work Phone: [facility] 03-08-2022 08:08-0500 Body weight 62.6 kg Karl Summers MD Work Phone: [facility] 02-20-2022 14:00-0500 Diastolic blood pressure 88 mm[Hg] Ricky Martell MD Work Phone: [facility] 02-20-2022 14:00-0500 Heart rate 87 /min Ricky Martell MD Work Phone: [facility] 02-20-2022 14:00-0500 Respiratory rate 18 /min Ricky Martell MD Work Phone: [facility] 02-20-2022 14:00-0500 SaO2% (BldA) [Mass fraction] 95 % Ricky Martell MD Work Phone: [facility] 02-20-2022 14:00-0500 Systolic blood pressure 142 mm[Hg] Ricky Martell MD Work Phone: [facility] 02-20-2022 11:59-0500 Body temperature 97.5 [degF] Ricky Martell MD Work Phone: [facility] 02-20-2022 06:14-0500 Body height 172.7 cm Ricky Martell MD Work Phone: [facility] 02-20-2022 06:14-0500 Body mass index (BMI) [Ratio] 21.12 kg/m2 Ricky Martell MD Work Phone: [facility] 02-20-2022 06:14-0500 Body weight 63 kg Ricky Martell MD Work Phone: [facility] 07-20-2021 13:28-0400 Diastolic blood pressure 110 mm[Hg] Rylie Villarreal PA-C Work Phone: [facility] 07-20-2021 13:28-0400 Heart rate 82 /min Rylie Villarreal PA-C Work Phone: [facility] 07-20-2021 13:28-0400 Respiratory rate 16 /min Rylie Villarreal PA-C Work Phone: [facility] 07-20-2021 13:28-0400 SaO2% (BldA) [Mass fraction] 98 % Rylie Villarreal PA-C Work Phone: [facility] 07-20-2021 13:28-0400 Systolic blood pressure 146 mm[Hg] Rylie Villarreal PA-C Work Phone: [facility] 05-10-2021 10:43-0500 Diastolic blood pressure 80 mm[Hg] Stacey Riveraner SECOND MATE Work Phone: [facility] 05-10-2021 10:43-0500 Heart rate 66 /min Stacey Riveraner SECOND MATE Work Phone: [facility] 05-10-2021 10:43-0500 SaO2% (BldA) [Mass fraction] 100 % Stacey Riveraner SECOND MATE Work Phone: [facility] 05-10-2021 10:43-0500 Systolic blood pressure 144 mm[Hg] Stacey Riveraner SECOND MATE Work Phone: [facility] 03-27-2021 08:32-0500 Body height 170.2 cm Bueno [employer] SECOND MATE Work Phone: [facility] 03-27-2021 08:32-0500 Body mass index (BMI) [Ratio] 21.93 kg/m2 Bueno [employer] SECOND MATE Work Phone: [facility] 03-27-2021 08:32-0500 Body weight 63.5 kg Bueno [employer] SECOND MATE Work Phone: [facility] 03-27-2021 08:32-0500 Diastolic blood pressure 90 mm[Hg] Bueno [employer] SECOND MATE Work Phone: [facility] 03-27-2021 08:32-0500 Heart rate 86 /min Bueno [employer] SECOND MATE Work Phone: [facility] 03-27-2021 08:32-0500 SaO2% (BldA) [Mass fraction] 95 % Bueno [employer] SECOND MATE Work Phone: [facility] 03-27-2021 08:32-0500 Systolic blood pressure 125 mm[Hg] Bueno [employer] SECOND MATE Work Phone: [facility] 02-21-2021 09:08-0500 Body temperature 98.1 [degF] Ryile Villarreal PA-C Work Phone: [facility] 02-21-2021 09:08-0500 Diastolic blood pressure 95 mm[Hg] Rylie Villarreal PA-C Work Phone: [facility] 02-21-2021 09:08-0500 Heart rate 86 /min Rylie Villarreal PA-C Work Phone: [facility] 02-21-2021 09:08-0500 SaO2% (BldA) [Mass fraction] 90 % Rylie Villarreal PA-C Work Phone: [facility] 02-21-2021 09:08-0500 Systolic blood pressure 137 mm[Hg] Rylie Villarreal PA-C Work Phone: [facility] 01-10-2021 11:02-0400 Body temperature 97.59 [degF] Rylie Villarreal PA-C Work Phone: [facility] 01-10-2021 11:02-0400 Diastolic blood pressure 96 mm[Hg] Rylie Villarreal PA-C Work Phone: [facility] 01-10-2021 11:02-0400 Heart rate 78 /min Rylie Villarreal PA-C Work Phone: [facility] 01-10-2021 11:02-0400 Respiratory rate 18 /min Rylie Villarreal PA-C Work Phone: [facility] 01-10-2021 11:02-0400 SaO2% (BldA) [Mass fraction] 99 % Rylie Villarreal PA-C Work Phone: [facility] 01-10-2021 11:02-0400 Systolic blood pressure 144 mm[Hg] Rylie Villarreal PA-C Work Phone: [facility] 12-14-2020 08:30-0400 Diastolic blood pressure 83 mm[Hg] Rylie Villarreal PA-C Work Phone: [facility] 12-14-2020 08:30-0400 Heart rate 88 /min Rylie Villarreal PA-C Work Phone: [facility] 12-14-2020 08:30-0400 Respiratory rate 16 /min Rylie Villarreal PA-C Work Phone: [facility] 12-14-2020 08:30-0400 SaO2% (BldA) [Mass fraction] 98 % Rylie Villarreal PA-C Work Phone: [facility] 12-14-2020 08:30-0400 Systolic blood pressure 142 mm[Hg] Rylie Villarreal PA-C Work Phone: [facility] 12-02-2020 16:00-0400 Body temperature 97.5 [degF] Ricky Martell MD Work Phone: [facility] 12-02-2020 16:00-0400 Diastolic blood pressure 89 mm[Hg] Ricky Martell MD Work Phone: [facility] 12-02-2020 16:00-0400 Heart rate 94 /min Ricky Martell MD Work Phone: [facility] 12-02-2020 16:00-0400 Respiratory rate 18 /min Ricky Martell MD Work Phone: [facility] 12-02-2020 16:00-0400 SaO2% (BldA) [Mass fraction] 95 % Ricky Martell MD Work Phone: [facility] 12-02-2020 16:00-0400 Systolic blood pressure 135 mm[Hg] Ricky Martell MD Work Phone: [facility] 12-02-2020 06:36-0400 Body height 172.7 cm Ricky Martell MD Work Phone: [facility] 12-02-2020 06:36-0400 Body mass index (BMI) [Ratio] 21.12 kg/m2 Ricky Martell MD Work Phone: [facility] 12-02-2020 06:36-0400 Body weight 63 kg Ricky Martell MD Work Phone: [facility] 11-16-2020 11:08-0400 Body temperature 98.71 [degF] Rylie Villarreal PA-C Work Phone: [facility] 11-16-2020 11:08-0400 Diastolic blood pressure 94 mm[Hg] Rylie Villarreal PA-C Work Phone: [facility] 11-16-2020 11:08-0400 Heart rate 82 /min Rylie Villarreal PA-C Work Phone: [facility] 11-16-2020 11:08-0400 Respiratory rate 16 /min Rylie Villarreal PA-C Work Phone: [facility] 11-16-2020 11:08-0400 SaO2% (BldA) [Mass fraction] 96 % Rylie Villarreal PA-C Work Phone: [facility] 11-16-2020 11:08-0400 Systolic blood pressure 146 mm[Hg] Rylie Villarreal PA-C Work Phone: [facility] 11-01-2020 11:15-0400 Body height 170.2 cm Roc Thrush SECOND MATE Work Phone: [facility] 11-01-2020 11:15-0400 Body mass index (BMI) [Ratio] 22.24 kg/m2 Roc Thrush SECOND MATE Work Phone: [facility] 11-01-2020 11:15-0400 Body weight 64.41 kg Roc Thrush SECOND MATE Work Phone: [facility] 11-01-2020 11:15-0400 Diastolic blood pressure 86 mm[Hg] Roc Thrush SECOND MATE Work Phone: [facility] 11-01-2020 11:15-0400 Heart rate 74 /min Roc Thrush SECOND MATE Work Phone: [facility] 11-01-2020 11:15-0400 SaO2% (BldA) [Mass fraction] 95 % Roc Thrush SECOND MATE Work Phone: [facility] 11-01-2020 11:15-0400 Systolic blood pressure 129 mm[Hg] Roc Thrush SECOND MATE Work Phone: [facility] 08-24-2020 14:23-0400 Diastolic blood pressure 89 mm[Hg] Ricky Martell MD Work Phone: [facility] 08-24-2020 14:23-0400 Heart rate 77 /min Ricky Martell MD Work Phone: [facility] 08-24-2020 14:23-0400 Respiratory rate 16 /min Ricky Martell MD Work Phone: [facility] 08-24-2020 14:23-0400 SaO2% (BldA) [Mass fraction] 94 % Ricky Martell MD Work Phone: [facility] 08-24-2020 14:23-0400 Systolic blood pressure 133 mm[Hg] Ricky Martell MD Work Phone: [facility] 08-16-2020 14:52-0400 Body height 172.7 cm Bueno [employer] SECOND MATE Work Phone: [facility] 08-16-2020 14:52-0400 Body mass index (BMI) [Ratio] 20.57 kg/m2 Bueno [employer] SECOND MATE Work Phone: [facility] 08-16-2020 14:52-0400 Body weight 61.37 kg Bueno [place] SECOND MATE Work Phone: [facility] 08-16-2020 14:52-0400 Diastolic blood pressure 89 mm[Hg] Bueno [place] SECOND MATE Work Phone: [facility] 08-16-2020 14:52-0400 Heart rate 72 /min Bueno [employer] SECOND MATE Work Phone: [facility] 08-16-2020 14:52-0400 SaO2% (BldA) [Mass fraction] 95 % [employer]eno [employer] SECOND MATE Work Phone: [facility] 08-16-2020 14:52-0400 Systolic blood pressure 128 mm[Hg] Bueno [employer] SECOND MATE Work Phone: [facility] 07-14-2020 09:30-0400 Body height 172.7 cm Ac Dean MD Work Phone: [facility] 07-14-2020 09:30-0400 Body mass index (BMI) [Ratio] 21.13 kg/m2 Ac Dean MD Work Phone: [facility] 07-14-2020 09:30-0400 Body weight 63.05 kg Ac Dean MD Work Phone: [facility] 07-14-2020 09:30-0400 Diastolic blood pressure 87 mm[Hg] Ac Dean MD Work Phone: [facility] 07-14-2020 09:30-0400 Heart rate 73 /min Ac Dean MD Work Phone: [facility] 07-14-2020 09:30-0400 Respiratory rate 20 /min Ac Dean MD Work Phone: [facility] 07-14-2020 09:30-0400 SaO2% (BldA) [Mass fraction] 95 % Ac Dean MD Work Phone: [facility] 07-14-2020 09:30-0400 Systolic blood pressure 126 mm[Hg] Ac Dean MD Work Phone: [facility] 07-01-2020 08:39-0400 Diastolic blood pressure 89 mm[Hg] Rylie Villarreal PA-C Work Phone: [facility] 07-01-2020 08:39-0400 Heart rate 89 /min Rylie Villarreal PA-C Work Phone: [facility] 07-01-2020 08:39-0400 Respiratory rate 17 /min Rylie Villarreal PA-C Work Phone: [facility] 07-01-2020 08:39-0400 SaO2% (BldA) [Mass fraction] 96 % Rylie Villarreal PA-C Work Phone: [facility] 07-01-2020 08:39-0400 Systolic blood pressure 131 mm[Hg] Rylie Villarreal PA-C Work Phone: [facility] 06-02-2020 13:08-0400 BP Diastolic 98 mm[Hg] [facility] 06-02-2020 13:08-0400 BP Systolic 140 mm[Hg] [facility] 06-02-2020 13:08-0400 Pulse (Heart Rate) 98 /min [facility] 06-02-2020 13:08-0400 Pulse Oximetry 94 % [facility] 06-02-2020 13:08-0400 Respiratory Rate 18 /min [facility] 05-27-2020 10:21-0500 BP Diastolic 103 mm[Hg] [facility] 05-27-2020 10:21-0500 BP Systolic 150 mm[Hg] [facility] 05-27-2020 10:21-0500 Pulse (Heart Rate) 82 /min [facility] 05-27-2020 10:21-0500 Respiratory Rate 21 /min [facility] 05-27-2020 09:56-0500 Pulse Oximetry 96 % [facility] 04-28-2020 14:05-0500 BP Diastolic 96 mm[Hg] [facility] 04-28-2020 14:05-0500 BP Systolic 131 mm[Hg] [facility] 04-28-2020 14:05-0500 Pulse (Heart Rate) 77 /min [facility] 04-28-2020 14:05-0500 Pulse Oximetry 95 % [facility] 04-28-2020 14:05-0500 Respiratory Rate 16 /min [facility] 04-28-2020 13:22-0500 Body Temperature 97.3 [degF] [facility] 04-28-2020 11:51-0500 BMI (Body Mass Index) 21.45 kg/m2 [facility] 04-28-2020 11:51-0500 Body weight 64 kg [facility] 04-28-2020 11:51-0500 Height 172.7 cm [facility] 04-25-2020 00:30-0500 Pulse Oximetry 95 % Rylie Johansen [facility] 04-25-2020 00:15-0500 BP Diastolic 112 mm[Hg] Rylie Johansen [facility] 04-25-2020 00:15-0500 BP Systolic 139 mm[Hg] Rylie Johansen [facility] 04-25-2020 00:13-0500 BMI (Body Mass Index) 22.05 kg/m2 Rylie Johansen [facility] 04-25-2020 00:13-0500 Body Temperature 97.9 [degF] Rylie Johansen [facility] 04-25-2020 00:13-0500 Body weight 65.77 kg Rylie Johansen [facility] 04-25-2020 00:13-0500 Height 172.7 cm Rylie Johansen [facility] 04-25-2020 00:13-0500 Pulse (Heart Rate) 84 /min Rylie Johansen [facility] 04-25-2020 00:13-0500 Respiratory Rate 16 /min [facility] 04-18-2020 11:17-0500 BMI (Body Mass Index) 21.59 kg/m2 [facility] 04-18-2020 11:17-0500 Body weight 64.41 kg [facility] 04-18-2020 11:17-0500 BP Diastolic 81 mm[Hg] [facility] 04-18-2020 11:17-0500 BP Systolic 125 mm[Hg] [facility] 04-18-2020 11:17-0500 Height 172.7 cm [facility] 04-18-2020 11:17-0500 Pulse (Heart Rate) 99 /min [facility] 04-18-2020 11:17-0500 Respiratory Rate 18 /min [facility] 04-18-2020 09:00-0500 BMI (Body Mass Index) 22.61 kg/m2 [facility] 04-18-2020 09:00-0500 Body weight 67.45 kg [facility] 04-18-2020 09:00-0500 BP Diastolic 95 mm[Hg] [facility] 04-18-2020 09:00-0500 BP Systolic 143 mm[Hg] [facility] 04-18-2020 09:00-0500 Pulse (Heart Rate) 87 /min [facility] 04-18-2020 09:00-0500 Pulse Oximetry 97 % [facility] 03-29-2020 11:08-0500 BMI (Body Mass Index) 21.44 kg/m2 [facility] 03-29-2020 11:08-0500 Body weight 63.96 kg [facility] 03-29-2020 11:08-0500 BP Diastolic 83 mm[Hg] [facility] 03-29-2020 11:08-0500 BP Systolic 124 mm[Hg] [facility] 03-29-2020 11:08-0500 Height 172.7 cm [facility] 03-29-2020 11:08-0500 Pulse (Heart Rate) 85 /min [facility] 02-24-2020 08:54-0500 BMI (Body Mass Index) 21.44 kg/m2 [facility] 02-24-2020 08:54-0500 Body weight 63.96 kg [facility] 02-24-2020 08:54-0500 BP Diastolic 83 mm[Hg] [facility] 02-24-2020 08:54-0500 BP Systolic 120 mm[Hg] [facility] 02-24-2020 08:54-0500 Height 172.7 cm [facility] 02-24-2020 08:54-0500 Pulse (Heart Rate) 78 /min [facility] 01-18-2020 15:31-0500 Respiratory Rate 18 /min Derek Fortune [facility] 01-18-2020 12:28-0500 Body Temperature 97.3 [degF] Derek [facility] 01-18-2020 12:28-0500 BP Diastolic 92 mm[Hg] Derek Fortune [facility] 01-18-2020 12:28-0500 BP Systolic 129 mm[Hg] Derek Fortune [facility] 01-18-2020 12:28-0500 Pulse (Heart Rate) 81 /min Derek Fortune [facility] 01-18-2020 12:28-0500 Pulse Oximetry 97 % Derek [facility] 01-16-2020 00:00-0400 BMI (Body Mass Index) 21.45 kg/m2 Derek [facility] 01-16-2020 00:00-0400 Body weight 64 kg Derek [facility] 01-16-2020 00:00-0400 Height 172.7 cm Derek Fortune [facility] 01-15-2020 20:43-0400 Respiratory rate 0 /min Derek Fortune [facility] 10-26-2019 17:51-0400 Body Temperature 98.2 [degF] [facility] 10-26-2019 17:43-0400 BMI (Body Mass Index) 22.81 kg/m2 [facility] 10-26-2019 17:43-0400 Body weight 68.04 kg [facility] 10-26-2019 17:43-0400 BP Diastolic 97 mm[Hg] [facility] 10-26-2019 17:43-0400 BP Systolic 144 mm[Hg] [facility] 10-26-2019 17:43-0400 Height 172.7 cm [facility] 10-26-2019 17:43-0400 Pulse (Heart Rate) 89 /min [facility] 10-26-2019 17:43-0400 Pulse Oximetry 96 % [facility] 10-26-2019 17:43-0400 Respiratory Rate 16 /min [facility] 05-04-2019 14:35-0500 BMI (Body Mass Index) 22.05 kg/m2 [facility] 05-04-2019 14:35-0500 Body Temperature 98.4 [degF] [facility] 05-04-2019 14:35-0500 Body weight 65.[address] [facility] 05-04-2019 14:35-0500 BP Diastolic 82 mm[Hg] [facility] 05-04-2019 14:35-0500 BP Systolic 141 mm[Hg] [facility] 05-04-2019 14:35-0500 Height 172.[address] [facility] 05-04-2019 14:35-0500 Pulse (Heart Rate) 98 /min [facility] 05-04-2019 14:35-0500 Pulse Oximetry 94 % [facility] 05-04-2019 14:35-0500 Respiratory Rate 18 /min [facility] 11-07-2018 22:30-0400 BP Diastolic 85 mm[Hg] [facility] 11-07-2018 22:30-0400 BP Systolic 124 mm[Hg] [facility] 11-07-2018 22:30-0400 Pulse (Heart Rate) 54 /min [facility] 11-07-2018 21:30-0400 Pulse Oximetry 97 % [facility] 11-07-2018 18:18-0400 BMI (Body Mass Index) 20.68 kg/m2 [facility] 11-07-2018 18:18-0400 Body Temperature 98.71 [degF] [facility] 11-07-2018 18:18-0400 Body weight 61.69 kg [facility] 11-07-2018 18:18-0400 Height 172.7 cm [facility] 11-07-2018 18:18-0400 Respiratory Rate 18 /min [facility] 10-12-2018 09:31-0400 Body Temperature 97.5 [degF] [facility] 10-12-2018 09:31-0400 BP Diastolic 83 mm[Hg] [facility] 10-12-2018 09:31-0400 BP Systolic 147 mm[Hg] [facility] 10-12-2018 09:31-0400 Pulse (Heart Rate) 73 /min [facility] 10-12-2018 09:31-0400 Pulse Oximetry 96 % [facility] 10-12-2018 09:31-0400 Respiratory Rate 16 /min [facility] [facility] 10-11-2018 18:19-0400 BMI (Body Mass Index) 22.05 kg/m2 [facility] 10-11-2018 18:19-0400 Body weight 65.77 kg [facility] 10-11-2018 18:19-0400 Height 172.7 cm [facility] 08-09-2018 09:54-0400 BP Diastolic 86 mm[Hg] Andrew Veloz [facility] 08-09-2018 09:54-0400 BP Systolic 147 mm[Hg] Andrew Veloz [facility] 08-09-2018 09:54-0400 Pulse (Heart Rate) 73 /min Andrew Veloz [facility] 08-09-2018 09:54-0400 Pulse Oximetry 95 % Andrew Veloz [facility] 08-09-2018 07:51-0400 Body Temperature 98.2 [degF] Andrew Veloz [facility] 08-09-2018 07:51-0400 Respiratory Rate 20 /min Andrew Veloz [facility] 08-08-2018 20:00-0400 BMI (Body Mass Index) 22.46 kg/m2 Andrew Veloz [facility] 08-08-2018 20:00-0400 Height 172.7 cm [facility]-08[facility]2018 20:00-0400 Weight 67 kg Andrew [facility] 07-22-2018 15:45-0400 BP Diastolic 80 mm[Hg] [facility] 07-22-2018 15:45-0400 BP Systolic 112 mm[Hg] [facility] 07-22-2018 15:45-0400 Pulse (Heart Rate) 94 /min [facility] 07-22-2018 15:45-0400 Pulse Oximetry 97 % [facility] 07-22-2018 15:45-0400 Respiratory Rate 16 /min [facility] 07-22-2018 13:44-0400 Body Temperature 98.29 [degF] [facility] 07-22-2018 13:44-0400 Height 172.7 cm [facility] 07-11-2018 08:23-0400 Body weight 68.31 kg Bueno [facility] 07-11-2018 08:23-0400 BP Diastolic 87 mm[Hg] [facility] 07-11-2018 08:23-0400 BP Systolic 133 mm[Hg] [facility] 07-11-2018 08:23-0400 Pulse (Heart Rate) 84 /min [facility] 07-11-2018 08:23-0400 Pulse Oximetry 99 % Myles [facility] 07-01-2018 16:51-0400 BP Diastolic 78 mm[Hg] Mary Reed [facility] 07-01-2018 16:51-0400 BP Systolic 128 mm[Hg] Mary Reed [facility] 07-01-2018 16:51-0400 Pulse (Heart Rate) 77 /min Mary Reed [facility] 07-01-2018 16:51-0400 Pulse Oximetry 99 % Mary Reed [facility] 07-01-2018 16:51-0400 Respiratory Rate 18 /min aMry Reed [facility] 07-01-2018 14:25-0400 Body Temperature 98.6 [degF] Mary Reed [facility] Encounters Encounter Date Encounter Type Care Provider Facility Start: 01-26-2025 End: 01-26-2025 Office outpatient visit 15 minutes Jalil Fisher MD Work Phone: [facility] Orthopedic and Sports Medicine Comment on above: Pain of right lower extremity (Primary Dx) Start: 01-26-2025 End: 01-26-2025 ambulatory RYLIE ALBERTO [facility] Start: 01-26-2025 ambulatory RYLIE ALBERTO [facility] Start: 01-21-2025 End: 01-21-2025 Orders Only Mary Woods LPN [facility] Orthopedi c and Sports Medicine Comment on above: Pain (Primary Dx) Start: 01-12-2025 End: 01-12-2025 Orders Only Naun Acuña PA-C Work Phone: [facility] Neurological Physicians Comment on above: Post-op pain (Primar y Dx) Start: 01-11-2025 End: 01-15-2025 ambulatory Naun Acuña PA-C Work Phone: [facility] Neuro Rehab Comment on above: Complex regional yaima n syndrome i of right lower limb (Primary Dx); Chronic low back pain without sciatica, unspecified back pain laterality; At high risk for falls; Unsteady gait when walking; Post-op pain Post-op pain (Primar y Dx) Start: 01-11-2025 End: 01-11-2025 ambulatory RYLIE ALBERTO [facility] Start: 01-11-2025 End: 01-11-2025 Postop follow up visit related to original px Naun Acuña PA-C Work Phone: [facility] Neurological Physicians Comment on above: Post-op pain (Primar y Dx) Start: 01-04-2025 End: 01-08-2025 ambulatory [facility] Start: 12-19-2024 End: 12-19-2024 Emergency department patient visit KUNAL POWELL [facility] Start: 12-14-2024 End: 12-14-2024 Postop follow up visit related to original px Naun Acuña STEVE-C Work Phone: [facility] Neurological Physicians Comment on above: Post-op pain; Complex regional pain syndrome i of right lower limb Start: 12-14-2024 End: 12-14-2024 ambulatory RYLIE ALBERTO [facility] Start: 11-24-2024 End: 11-24-2024 Postop follow up visit related to original px Naun Acuña PA-C Work Phone: [facility] Neurological Physicians Comment on above: Post-op pain (Primar y Dx); Complex regional pain syndrome i of right lower limb Start: 11-24-2024 End: 11-24-2024 ambulatory NAUN ACUÑA [facility] Amb[facility] Start: 11-17-2024 End: 11-21-2024 Clinical Support Sofi Farr RN [facility] Neurological Physicians Comment on above: Complex regional yaima n syndrome i of right lower limb (Primary Dx) Start: 11-09-2024 End: 11-09-2024 Anesthesia consultation Luis Middleton MD Work Phone: [facility] Periop Start: 11-09-2024 End: 11-10-2024 ambulatory [facility] Start: 11-09-2024 End: 11-10-2024 Subsequent hospital visit by physician Ricky Martell MD Work Phone: [facility] Intermediate Start: 10-28-2024 End: 10-28-2024 ambulatory [facility] Start: 10-28-2024 End: 11-01-2024 ambulatory [facility] Start: 10-28-2024 End: 11-01-2024 Encounter for other preprocedural examination [facility] Start: 10-14-2024 End: 10-15-2024 Emergency department patient visit RYLIE ALBERTO [facility] Start: 10-05-2024 End: 10-05-2024 Office outpatient visit 15 minutes Naun Acuña PA-C Work Phone: [facility] Neurological Physicians Comment on above: Complex regional yaima n syndrome i of right lower limb (Primary Dx) Start: 10-05-2024 End: 10-05-2024 ambulatory RYLIE GORE [facility] Amb[facility] Start: 07-20-2024 End: 07-20-2024 Office outpatient visit 25 minutes Rylie Gore SECOND MATE Work Phone: [facility] Primary Care Women's Health Comment on above: Complex regional yaima n syndrome i of right lower limb (Primary Dx); Anxiety and depression; Alcohol dependence in remission (HCC); Unsteady gait when walking; At high risk for falls; Encounter for lipid screening for cardiovascular disease; Elevated glucose level; Screening for thyroid disorder Start: 07-20-2024 End: 07-20-2024 ambulatory RYLIE GORE [facility] Amb[facility] Start: 07-12-2024 Non-patient / Non-visit Dr. Magy Roberson DO [facility] Inpatient Physicians Work Phone: Start: 07-11-2024 Non-patient / Non-visit Dr. Magy Macias Inpatient Physicians Work Phone: Start: 07-10-2024 ambulatory Luis Neely ty:[facility] Start: 07-10-2024 End: 07-13-2024 Evaluation and management of inpatient Dr. Luis Burt DO [facility] Surgical 3 Work Phone: Start: 06-03-2024 ambulatory RYLIE GORE [facility] ealth Ambulatory Start: 03-19-2024 End: 03-19-2024 Office outpatient visit 15 minutes Blanca Corey SECOND MATE Work Phone: [facility] Comment on above: Non-recurrent acute suppurative otitis media of left ear without spontaneous rupture of tympanic membrane (Primary Dx) Start: 03-19-2024 End: 03-19-2024 ambulatory BLANCA COREY [facility] Urgent [facility] Start: 12-23-2023 Patient encounter status Mireya Corey SECOND MATE Work Phone: [facility] Start: 08-22-2023 End: 08-22-2023 Office outpatient visit 15 minutes Rylie Alberto Gore SECOND MATE Work Phone: [facility] Comment on above: Rash (Primary Dx) Start: 05-24-2023 [facility] above: High Risk Outreach f or High Risk Start: 05-17-2023 [facility] above: High Risk Outreach f or High Risk Start: 05-13-2023 ambulatory Margoth Cotter [facility] Comment on above: High Risk Outreach f or High Risk Start: 05-01-2023 ambulatory RYLIE [facility] Start: 05-01-2023 End: 05-01-2023 Subsequent hospital visit by physician Andrés Hagen MD Work Phone: [facility] Per[facility] Start: [facility] Start: 04-21-2023 End: 04-21-2023 Emergency department patient visit [facility] Start: 04-21-2023 End: 04-21-2023 Emergency department patient visit Tato Kaminski MD Work Phone: [facility] Start: 04-02-2023 ambulatory Margoth Cotter [facility] Comment on above: High Risk Outreach f or High Risk Start: 03-29-2023 [facility] Comment on above: Started High Risk Ou treach for High Risk Start: 03-24-2023 Documentation procedure Camila Leon SECOND MATE Work Phone: [facility] Start: 03-07-2023 [facility] Start: 03-06-2023 ambulatory Cathy Lozano RN [facility] Start: 03-04-2023 Critical care ill/in jured patient init 30-74 min Diaz Moreno MD Work Phone: [facility] Work Phone: Start: 03-04-2023 End: 03-05-2023 Emergency department patient visit Diaz Moreno MD Work Phone: [facility] Medical Observation Start: 03-04-2023 End: 03-04-2023 Office outpatient visit 40 minutes Rylie Gore SECOND MATE Work Phone: [facility] Comment on above: Chest pain, unspecif ied type (Primary Dx); Complex regional pain syndrome i of right lower limb Start: 10-24-2022 End: 10-24-2022 Office outpatient visit 15 minutes Rylie Gore SECOND MATE Work Phone: [facility] Comment on above: Complex regional yaima n syndrome i of right lower limb (Primary Dx); Alcohol dependence in remission (HCC); Chronic low back pain without sciatica, unspecified back pain laterality Start: 10-01-2022 End: 10-03-2022 Evaluation and management of inpatient Nu Fortune MD Work Phone: [facility] Surgical Intermediate Start: 09-26-2022 End: 09-28-2022 Evaluation and management of inpatient Loli Jimenes MD Work Phone: [facility] Med Surg Start: 06-17-2022 Non-patient / Non-visit RYLIE GORE Work Phone: [facility] Inpatient Physicians Start: 06-16-2022 Non-patient / Non-visit RYLIE GORE Work Phone: [facility] Inpatient Physicians Start: 06-15-2022 Non-patient / Non-visit RYLIE GORE Work Phone: [facility] Inpatient Physicians Start: 06-14-2022 End: 06-18-2022 Evaluation and management of inpatient RYLIE GORE Work Phone: [facility] Surgical 3 Start: 06-01-2022 End: 06-01-2022 Office outpatient visit 25 minutes Rylie Gore CNP Work Phone: [facility] Comment on above: Closed fracture of m ultiple ribs of right side with routine healing, subsequent encounter (Primary Dx); Follow-up exam Start: 05-22-2022 Documentation procedure Jayro Acuña PA-C Work Phone: [facility] Neurological Physicians Start: 05-22-2022 End: 05-22-2022 Emergency department patient visit RYLIE SOFÍA [facility] Start: 05-22-2022 End: 05-22-2022 Emergency department patient visit Luis Will MD Work Phone: [facility] Emergency Department Start: 05-21-2022 Orders Only Naun rowe PA-C Work Phone: [facility] Neurological Physicians Comment on above: Complex regional yaima n syndrome i of right lower limb (Primary Dx) Start: 05-17-2022 Documentation procedure Jayro Acuña PA-C Work Phone: [facility] Neurological Physicians Start: 05-15-2022 End: 05-15-2022 Postop follow up visit related to original px Naun WILSON-C Work Phone: [facility] Neurological Physicians Comment on above: Complex regional yaima n syndrome i of right lower limb (Primary Dx) Start: 04-16-2022 ambulatory Margoth Cotter [facility] Start: 04-12-2022 ambulatory Margoth Cot[facility] Start: 04-09-2022 End: 04-09-2022 Office outpatient visit 25 minutes Rylie Gore CNP Work Phone: [facility] Comment on above: Complex regional yaima n syndrome i of right lower limb (Primary Dx); Chronic bilateral low back pain with right-sided sciatica; Episode of recurrent major depressive disorder, unspecified depression episode severity (HCC); Alcohol dependence with unspecified alcohol-induced disorder (HCC); Lack of access to transportation Start: 03-08-2022 End: 03-08-2022 Office outpatient visit 15 minutes Karl Summers MD Work Phone: [facility] Orthopedic & Sports Medicine Physicians Comment on above: Other type I or II o pen fracture of proximal end of right tibia with routine healing, subsequent encounter (Primary Dx); Complex regional pain syndrome i of right lower limb Start: 03-01-2022 End: 03-01-2022 Clinical Support Sofi Farr RN [facility] Neurological Physicians Comment on above: Status post insertio n of spinal cord stimulator (Primary Dx) Start: 02-23-2022 Refill Rosario Linares MD Work Phone: [facility] Neurological Physicians Comment on above: Complex regional yaima n syndrome i of right lower limb Start: 02-22-2022 End: 02-22-2022 Clinical Support Carla Leggett RN [facility] Neurological Physicians Comment on above: Arrived Start: 02-20-2022 End: 02-20-2022 Subsequent hospital visit by physician Ricky Martell MD Work Phone: [facility] Periop Start: 11-21-2021 End: 11-21-2021 Clinical Support Margoth Hackett Work Phone: [facility] Physician Group Audiology Comment on above: Sensorineural hearin g loss (SNHL) of both ears (Primary Dx) Start: 08-24-2021 End: 08-24-2021 Clinical Support Margoth Hackett Work Phone: [facility] Physician Group Audiology Comment on above: Sensorineural hearin g loss (SNHL) of both ears (Primary Dx) Start: 08-11-2021 End: 08-11-2021 Clinical Support Sofi Farr RN [facility] Neurological Physicians Comment on above: Status post insertio n of spinal cord stimulator (Primary Dx) Start: 07-20-2021 End: 07-20-2021 Office outpatient visit 15 minutes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 metabolic 1998 panel - Serum or Plasma Gama Bedolla Work Phone: Start: 10-11-2018 Complete blood count with white cell differential, automated Gama Bedolla Work Phone: Start: 10-11-2018 Complete blood count with white cell differential, manual Gama Bedolla Work Phone: Start: 10-11-2018 Ethanol [Mass/volume ] in Serum or Plasma Gama Bedolla Work Phone: Start: 10-11-2018 Hepatic function 200 0 panel - Serum or Plasma Gama Bedolla Work Phone: Start: 10-11-2018 Drugs of abuse urine screening test Gama Bedolla Work Phone: Start: 08-09-2018 Basic metabolic 2000 panel - Serum or Plasma Terri Lemon Work Phone: Start: 08-09-2018 Complete blood count (hemogram) panel - Blood by Automated count Terri Lemon Work Phone: Start: 08-08-2018 Ethanol [Mass/volume ] in Serum or Plasma Terri Lemon Work Phone: Start: 08-08-2018 Basic metabolic 1998 panel - Serum or Plasma Andrew Veloz Work Phone: Start: 08-08-2018 Complete blood count with white cell differential, automated Andrew Veloz Work Phone: Start: 08-08-2018 Complete blood count with white cell differential, manual Andrew Veloz Work Phone: Start: 08-08-2018 Drugs of abuse urine screening test Andrew Fagani Work Phone: Start: 08-08-2018 Ethanol [Mass/volume ] in Serum or Plasma Andrew Fagani Work Phone: Start: 08-08-2018 Hepatic function 200 0 panel - Serum or Plasma Andrew Fagani Work Phone: Start: 08-08-2018 INR in Platelet poor plasma by Coagulation assay Andrew Veloz Work Phone: Start: 08-08-2018 Lipase [Enzymatic activity/volume] in Serum or Plasma Andrew Veloz Work Phone: Start: 07-22-2018 Assay of troponin quantitative Rosa Elena Mariee Work Phone: Start: 07-22-2018 TOXICOLOGY DRUG SCREEN, URINE Rosa Elena Mariee Work Phone: Start: 07-22-2018 URINALYSIS, MACRO Rosa Elena Mariee Work Phone: Start: 07-22-2018 Blood typing serologic abo Rosa Elena Mariee Work Phone: Start: 07-22-2018 Albumin serum plasma /whole blood Rosa Elena Mariee Work Phone: Start: 07-22-2018 Assay of ethanol Rosa Elena aMriee Work Phone: Start: 07-22-2018 Assay of lipase Rosa Elena Mariee Work Phone: Start: 07-22-2018 CBC, EDIF, PLATELET Balwinder ysabel Mariee Work Phone: Start: 07-22-2018 Creatinine blood Rosa Elena Mariee Work Phone: Start: 07-22-2018 Prothrombin time Rosa Elena Mariee Work Phone: Start: 07-22-2018 Blood occult peroxid ase actv qual feces 1 deter Rosa Elena Mariee Work Phone: Start: 07-01-2018 Procedure on wound Adria Reed Work Phone: Plan of Treatment Date Care Activity Detail Author Start: 2052 RSV Vaccines (1 - 1-dose 75+ series) RSV Vaccines (1 - 1-dose 75+ series) [facility] Start: 05-01-2033 Screening for malignant neoplasm of colon [facility] Start: 07-01-2028 Tetanus vaccination [facility] Start: 07-01-2028 Vaccination for diphtheria, pertussis, and tetanus Tetanus/Diphtheria/Per tussis (2 - Td or Tdap) [facility] Start: 08-03-2027 Administration of herpes zoster vaccine Zoster Vaccines (1 of 2) [facility] Start: 12-24-2025 Prostate specific antigen measurement PSA Level [facility] Start: 07-20-2025 Review Statin Not Indicated Exemption Review Statin Not Indicated Exemption [facility] Start: 04-09-2025 End: 04-09-2025 Patient encounter procedure 04/09/2025 2:00 PM EST Office Visit [facility] [address] [place] [address] Naun Acuña PA-C [address] [address] Sue Fulton DO [address] [place] [address] [facility] Start: 03-10-2025 End: 03-10-2025 Patient encounter procedure 03/10/2025 10:30 AM EST Office Visit [facility] Orthopedic and [facility] Medicine [address] [place] [address] [place] [address] Jalil Fisher MD [address] [place] [phone] [facility] Orthopedic and Sports Medicine Start: 02-22-2025 End: 02-22-2025 Patient encounter procedure 02/22/2025 9:30 AM EST Surgical Consult [facility] Orthopedic and Sports Medicine [address] [place] [address] [place] [phone] Jalil Fisher MD [address] [place] [phone] [facility] Orthopedic formerly [facility] Sports Medicine Start: 01-26-2025 End: 01-26-2025 Patient encounter procedure 01/26/2025 10:00 AM EST Office Visit [facility] Orthopedic formerly [facility] Sports Medicine [address] [place] [phone] Jalil Fisher MD [address] [place] [address] [facility] Orthopedic and Sports Medicine Start: 01-25-2025 End: 01-25-2025 ambulatory 01/25/2025 10:15 AM EST Treatment [facility] Neuro Re[facility] [address] [place] [phone] Naun Acuña PA-C 335 [facility] [address] [address] [facility] Rehab Start: 01-18-2025 End: 01-18-2025 ambulatory 01/18/2025 10:15 AM EST Treatment [facility] [address] [place] [phone] Naun Acuña PA-C [address] [facility] [address] [address] Blanca Diehl, PT [facility] Start: 01-11-2025 End: 01-11-2025 Follow-up encounter 01/11/2025 8:45 AM EDT Follow-Up [facility] Neurological Physicians [address] [facility] [place] [place] [address] Naun Acuña PA-C [address] [facility] [address] [address] [facility] Phys[facility] Start: 12-24-2024 End: 12-24-2024 Patient encounter procedure [facility] Start: 12-22-2024 Medicare Wellness Visit Medicare Wellness Visit [facility] Start: 12-22-2024 Review Statin Not Indicated Exemption Review Statin Not Indicated Exemption [facility] Start: 12-14-2024 End: 12-14-2024 Follow-up encounter 12/14/2024 9:30 AM EDT Follow-Up [facility] Physicians [address] [facility] [place], [place] [address] Naun Acuña PA-C [address] [address] [facility] Start: 11-24-2024 End: 11-24-2024 Follow-up encounter 11/24/2024 8:45 AM EDT Follow-Up [facility] [address] [facility] [place] [address] Naun Acuña PA-C [address] [address] [facility] Start: 11-18-2024 End: 11-18-2024 Follow-up encounter 11/18/2024 9:45 AM EDT Follow-Up [facility] [address] [facility] [place] [address] Naun Acuña PA-C [address] [address] [facility] Start: 11-17-2024 End: 11-17-2024 Clinical Support 11/17/2024 11:00 AM EDT Clinical Support [facility] [address] [facility] [place] [address] [facility] Start: 11-16-2024 COVID-19 Vaccine ( season) COVID-19 Vaccine ( season) [facility] Start: 11-16-2024 COVID-19 Vaccine ( season) COVID-19 Vaccine ( season) [facility] Start: 11-16-2024 Influenza vaccination [facility] Start: 11-09-2024 End: 11-09-2024 Rmvl spinal nstim eltrd plate/paddle incl fluor REMOVAL SPINAL CORD STIMULATOR Complex regional pain syndrome i of right lower limb 11/09/2024 1:53 PM EDT [facility] Main OR Start: 10-26-2024 End: 10-26-2024 Patient encounter procedure [facility] Start: 10-22-2024 Depression Remission Assessment (PHQ9) Depression Remission Assessment (PHQ9) [facility] Start: 07-13-2024 Patient discharge [facility] Start: 07-11-2024 Seizure precautions [facility] Start: 07-11-2024 Consultation [facility] Start: 07-11-2024 Care planning and problem solving actions [facility] Start: 07-10-2024 Application of intermittent pneumatic compression device [facility] Start: 07-10-2024 Following clinical pathway protocol [facility] Start: 07-10-2024 Assessment of risk of venous thromboembolism [facility] Start: 07-10-2024 Documentation procedure [facility] Start: 07-10-2024 Inhalation therapy procedure [facility] Start: 07-10-2024 Insertion of catheter into peripheral vein [facility] Start: 07-10-2024 Measuring intake and output [facility] Start: 07-10-2024 Providing care according to standard [facility] Start: 07-10-2024 Provision of activity privileges [facility] Start: 07-10-2024 Referral to service [facility] Start: 07-10-2024 [facility] Start: 07-10-2024 Admission procedure [facility] Start: 07-10-2024 Verification routine [facility] Start: 07-10-2024 Hospital admission, emergency, from emergency room, medical nature [facility] Start: 07-10-2024 Consultation [facility] Start: 07-10-2024 Consultation [facility] Start: 07-10-2024 Patient referral to dietitian [facility] Start: 05-01-2024 Screening for malignant neoplasm of colon COLORECTAL CANCER SCREENING DISCUSSION [facility] Start: 12-23-2023 End: 12-23-2023 Patient encounter procedure 12/23/2023 3:00 PM EDT Office Visit [facility] [address] [place] [address] Rylie Gore, [address] [place] [address] [facility] Start: 11-17-2023 COVID-19 Vaccine ( season) COVID-19 Vaccine ( season) [facility] Start: 11-17-2023 Influenza vaccination [facility] Start: 06-24-2023 End: 06-24-2023 Patient encounter procedure 06/24/2023 1:40 PM EDT Office Visit [address] [place] [address] Rylie Gore, [address] [place] [address] [facility] Start: 06-13-2023 End: 06-13-2023 Patient encounter procedure 06/13/2023 8:20 AM EDT Office Visit [address] [place] [address] Rylie Gore, [address] [place] [address] [facility] Start: 05-17-2023 Depression Remission Assessment (PHQ9) Depression Remission Assessment (PHQ9) [facility] Start: 01-23-2023 End: 01-23-2023 Patient encounter procedure 01/23/2023 11:00 AM EST Office Visit [address] [place] [address] Rylie Gore, [address] [place] [address] [facility] Start: 01-21-2023 Depression Remission Assessment (PHQ9) Depression Remission Assessment (PHQ9) [facility] Start: 11-16-2022 COVID-19 VACCINE ( season) COVID-19 VACCINE ( season) [facility] Start: 11-16-2022 Influenza vaccination [facility] Start: 10-15-2022 End: 10-15-2022 Patient encounter procedure 10/15/2022 10:00 AM EDT Office Visit [facility] [address] [place] [address] Rylie Gore, [facility] [address] [facility] [place] [address] [facility] Start: 2022 Screening for malignant neoplasm of colon COLORECTAL CANCER SCREENING DISCUSSION [facility] Start: 07-09-2022 End: 07-09-2022 Patient encounter procedure [facility] Start: 06-18-2022 Patient discharge [facility] Start: 06-16-2022 Inhalation therapy procedure [facility] Start: 06-14-2022 Assessment of risk of venous thromboembolism [facility] Start: 06-14-2022 Insertion of catheter into peripheral vein [facility] Start: 06-14-2022 Providing care according to standard [facility] Start: 06-14-2022 Provision of activity privileges [facility] Start: 06-14-2022 Referral to service [facility] Start: 06-14-2022 [facility] Start: 06-14-2022 Following clinical pathway protocol [facility] Start: 06-14-2022 Verification routine [facility] Start: 06-14-2022 Admission procedure [facility] Start: 06-14-2022 Catheterization of vein [facility] Start: 06-14-2022 Patient referral to dietitian [facility] Start: 05-22-2022 End: 05-22-2022 ambulatory 05/22/2022 Evaluation Rehabilitation Naun Acuña PA-C [address] [address] Jalil Gillepsie, PT [facility] Start: 03-08-2022 End: 03-08-2022 Patient encounter procedure 03/08/2022 Office Visit Sports Medicine Karl Summers MD [address] [address] [facility] Orthopedic [facility] Sports Medicine Physicians Start: 03-07-2022 End: 03-07-2022 Follow-up encounter 03/07/2022 Follow-Up Neurosurgery Rylie Villarreal PA-C [address] [place] [address] [facility] Start: 03-01-2022 End: 03-01-2022 Admission to same day surgery center 03/01/2022 Clinical Support Neurosurgery [facility] Start: 02-27-2022 End: 02-27-2022 Admission to same day surgery center 02/27/2022 Clinical Support Neurosurgery [facility] Start: 02-20-2022 End: 02-20-2022 INSERTION SPINAL CORD STIMULATOR PERMANENT INSERTION SPINAL CORD STIMULATOR PERMANENT Complex regional pain syndrome i of right lower limb 02/20/2022 7:13 AM [facility] Main OR Start: 02-20-2022 End: 02-20-2022 LAMINECTOMY DECOMPRESSION LUMBAR 3 LEVELS LAMINECTOMY DECOMPRESSION LUMBAR 3 LEVELS Complex regional pain syndrome i of right lower limb 02/20/2022 7:13 AM [facility] Main OR Start: 11-16-2021 Influenza vaccination [facility] Start: 08-18-2021 End: 08-18-2021 Follow-up encounter 08/18/2021 Follow-Up Neurosurgery Ricky Martell MD [address] [address] [facility] Start: 08-03-2021 End: 08-03-2021 Patient encounter procedure 08/03/2021 Office Visit Sports Karl Giraldo MD [address] [address] [facility] Orthopedic [facility] Sports Medicine Phys[facility] Start: 07-31-2021 End: 07-31-2021 Patient encounter procedure 07/31/2021 Office Visit Lab Rylie Villarreal PA-C [address] [place] [address] [facility] Start: 07-27-2021 End: 07-27-2021 Admission to same day surgery center 07/27/2021 Surgery Ricky Martell MD [address] [place] [address] T9-10 Laminectomy, Removal and replacement of Spinal Cord Stimulator and right flank IPG, T10 Laminoplasty and Fusion [facility] Comment on above: T9-10 Laminectomy, Removal and replaceme nt of Spinal Cord Stimulator and right flank IPG, T10 Laminoplasty and Fusion Start: 07-27-2021 End: 07-27-2021 INSERTION SPINAL CORD STIMULATOR PERMANENT INSERTION SPINAL CORD STIMULATOR PERMANENT Complex regional pain syndrome i of right lower limb 07/27/2021 6:[address] [facility] Main OR Start: 07-27-2021 End: 07-27-2021 LAMINECTOMY DECOMPRESSION THORACIC WITH FUSION SINGLE LEVEL LAMINECTOMY DECOMPRESSION THORACIC WITH FUSION SINGLE LEVEL Complex regional pain syndrome i of right lower limb 07/27/2021 6:[address] [facility] Main OR Start: 07-27-2021 Subsequent hospital visit by physician 07/27/2021 Hospital Encounter Ricky Martell MD [address] [place] [address] [facility] Periop Start: 07-24-2021 End: 07-24-2021 Patient encounter procedure 07/24/2021 Office Visit Pre-Admission Testing Ricky Martell MD [address] [place] [address] [facility] Preadmission Testing Start: 07-24-2021 End: 07-24-2021 Admission to same day surgery center 07/24/2021 Clinical Support Neurosurgery [facility] Start: 06-22-2021 End: 06-22-2021 Patient encounter procedure 06/22/2021 Office Visit Neurosurgery Ricky Martell MD [address] [facility] [address] [place] [address] [facility] Start: 06-06-2021 End: 06-06-2021 Patient encounter procedure 06/06/2021 Office Visit Neurosurgery Ricky Martell MD [address] [facility] [address] [place] [address] [facility] Start: 05-16-2021 History and physical examination, annual for health maintenance Wellness Visit [facility] Start: 05-04-2021 End: 05-04-2021 Patient encounter procedure 05/04/2021 Appointment Radiology Rylie Villarreal PA-C [address] [address] [facility] Diagn[facility] Start: 04-24-2021 End: 04-24-2021 Patient encounter procedure 04/24/2021 Office Visit Ricky Phan MD [address] [address] [facility] Start: 04-20-2021 End: 04-20-2021 Clinical Support 04/20/2021 Clinical Support Otolaryngology Margoth Duke AuD [address] [place] [address] [facility] Physician Group Audiology Start: 03-27-2021 End: 03-27-2021 Patient encounter procedure 03/27/2021 Office Visit Otolaryngology [place], Myles Parekh CNP [address] [place] [address] [facility] Ear, Nose [facility] Throat Physicians Start: 03-24-2021 End: 03-24-2021 Clinical Support 03/24/2021 Clinical Support Otolaryngology Margoth Duke AuD [address] [place] [address] [facility] Phys[facility] Audiology Start: 03-06-2021 End: 03-06-2021 Patient encounter procedure 03/06/2021 Office Visit Otolaryngology [employer], Myles Parekh CNP [address] [place] [address] [facility] Start: 02-21-2021 End: 02-21-2021 Patient encounter procedure 02/21/2021 Office Visit Neurosurgery Rylie Villarreal PA-C [address] [address] [facility] Start: 01-11-2021 End: 01-11-2021 Follow-up encounter 01/11/2021 Follow-Up Neurosurgery Rylie Villarreal PA-C [address] [facility] [address] [place] [address] [facility] Start: 01-05-2021 End: 01-05-2021 Patient encounter procedure [facility] Orth[facility] Phys[facility] Start: 12-14-2020 End: 12-14-2020 Follow-up encounter 12/14/2020 Follow-Up Neurosurgery Rylie Villarreal PA-C [address] [facility] [address] [place] [address] [facility] Start: 12-07-2020 End: 12-07-2020 Admission to same day surgery center 12/07/2020 Clinical Support Neurosurgery [facility] Start: 11-22-2020 End: 11-22-2020 Follow-up encounter 11/22/2020 Follow-Up Neurosurgery Rylie Villarreal PA-C [address] [address] [facility] Start: 11-18-2020 End: 11-18-2020 Follow-up encounter 11/18/2020 Follow-Up Neurosurgery Rylie Villarreal PA-C [address] [address] [facility] Start: 11-16-2020 Influenza vaccination [facility] Start: 11-16-2020 End: 11-16-2020 Follow-up encounter 11/16/2020 Follow-Up Neurosurgery Rylie Villarreal PA-C [address] [address] [facility] Start: 11-15-2020 End: 11-15-2020 Admission to same day surgery center [facility] Per[facility] Comment on above: Bilateral percutaneous insertion of tria l spinal cord stimulator electrode(s) via L1-L2 Approach, fluoroscopic directed. Start: 11-15-2020 Subsequent hospital visit by physician [facility] Start: 11-15-2020 End: 11-15-2020 INSERTION SPINAL CORD STIMULATOR TEMPORARY [facility] Main OR Start: 11-04-2020 End: 11-04-2020 Clinical Support [facility] Audiology Start: 11-01-2020 End: 11-01-2020 Patient encounter procedure 11/01/2020 Office Visit Pre-Admission Testing [facility] Preadmission Testing Start: 11-01-2020 End: 11-01-2020 Admission to same day surgery center 11/01/2020 Clinical Support Neurosurgery [facility] Start: 10-20-2020 End: 10-20-2020 Clinical Support 10/20/2020 Clinical Support Otolaryngology Margoth Duke, Lew [address] [place] [address] [phone] [facility] Physician [facility] Audiology Start: 10-14-2020 End: 10-14-2020 Clinical Support 10/14/2020 Clinical Support Otolaryngology Margoth Duke, AuD [address] [place] [address] [phone] [facility] Physician [facility] Audiology Start: 10-07-2020 End: 10-07-2020 Patient encounter procedure 10/07/2020 Office Visit Otolaryngology Cement[employer] Joiner, Myles Parekh CNP [address] [place] [address] [phone] [facility] Start: 09-27-2020 Subsequent hospital visit by physician 09/27/2020 Hospital Encounter Ricky Martell MD [address] [address] [phone] [facility] Periop Start: 09-23-2020 End: 09-23-2020 Patient encounter procedure 09/23/2020 Office Visit Lab Rylie Villarreal PA-C [address] [address] [phone] [facility] Assessment Center Start: 09-20-2020 End: 09-20-2020 Patient encounter procedure 09/20/2020 Office Visit Neurosurgery Ricky Martell MD [address] [address] [phone] [facility] Start: 09-15-2020 End: 09-15-2020 Clinical Support 09/15/2020 Clinical Support Otolaryngology Margoth Duke, AuD [address] [place] [address] [phone] [facility] Physician [facility] Audiology Start: 09-05-2020 End: 09-05-2020 Patient encounter procedure 09/05/2020 Initial consult Psychiatry Cecilia Ayoub MD [address] [address] [phone] [facility] Physicians Group Start: 08-22-2020 End: 08-22-2020 Patient encounter procedure 08/22/2020 Office Visit Neurosurgery Ricky Martell MD [address] [address] [phone] [facility] Start: 08-18-2020 End: 08-18-2020 Patient encounter procedure 08/18/2020 Office Visit Sports Medicine Naun Enrique MD [address] [place] [address] [phone] [facility] Start: 08-16-2020 End: 08-16-2020 Patient encounter procedure [facility] Start: 08-11-2020 End: 08-11-2020 Clinical Support 08/11/2020 Clinical Support Otolaryngology Rylie Gore, SECOND MATE [address] [place] [address] Margoth Duke AuD [address] [place] [address] [phone] [facility] Phys[facility] Audiology Start: 07-14-2020 End: 07-14-2020 Office Visit 07/14/2020 Office Visit Sports Medicine Naun Enrique MD [address] [place] [address] [phone] [facility] Start: 07-14-2020 End: 07-14-2020 Office Visit 07/14/2020 Office Visit Anesthesiology Pain Mgt Ac Dean MD [address] [place] [address] [phone] [facility] Start: 07-13-2020 End: 07-13-2020 Office Visit 07/13/2020 Office Visit Primary Care GoreRylie, SECOND MATE [address] [place] [address] [facility] Start: 07-08-2020 End: 07-08-2020 Patient encounter procedure 07/08/2020 Office Visit Sports Medicine Naun Enrique MD [address] [place] [address] [phone] [facility] Start: 06-13-2020 End: 06-13-2020 Procedure visit 06/13/2020 Procedure visit Neurology Adam Arreola MD [address] [place] [address] [phone] [facility] Start: 06-09-2020 End: 06-09-2020 Office Visit 06/09/2020 Office Visit Anesthesiology Pain Mgt Ac Dean MD [address] [place] [address] [phone] [facility] Start: 06-08-2020 End: 06-08-2020 Rehab Services Visit 06/08/2020 Rehab Services Visit Physical Therapy Ac Dean MD [address] [place] [address] [phone] Finesse Norris, PT [address] [place] [address] [facility] Physical Therapy [facility] Start: 06-06-2020 End: 06-06-2020 Rehab Services Visit 06/06/2020 Rehab Services Visit Physical Therapy Ac Dean MD [address] [place] [address] [phone] Nathanael Fortune, HYPOID GEAR GENERATOR [address] [place] [address] [phone] [facility] Physical [facility] Start: 06-02-2020 End: 06-02-2020 Office Visit 06/02/2020 Office Visit Anesthesiology Pain MgAc Villarreal MD [address] [place] [address] [phone] [facility] Start: 06-01-2020 End: 06-01-2020 Rehab Services Visit 06/01/2020 Rehab Services Visit Physical Therapy Nathanael Fortune, HYPOID GEAR GENERATOR [address] [place] [address] [phone] [facility] Start: 05-31-2020 End: 05-31-2020 Procedure visit 05/31/2020 Procedure visit Neurology ViauJalil MD [address] [place] [address] [phone] Adam Arreola MD [address] [address] [phone] [facility] Start: 05-30-2020 End: 05-30-2020 Rehab Services Visit 05/30/2020 Rehab Services Visit Physical Therapy Ac Dean MD [address] [place] [address] [phone] Nathanael Fortune, HYPOID GEAR GENERATOR [address] [place] [address] [phone] [facility] Start: 05-27-2020 End: 05-27-2020 Office Visit 05/27/2020 Office Visit Anesthesiology Pain Ac Colunga MD [address] [place] [address] [phone] [facility] Procedural Pain Management Start: 04-28-2020 End: 04-28-2020 Hospital Encounter [facility] Periop Comment on above: Painful orthopaedic hardware (HCC) SCREW REMOVAL RIGHT LEG Start: 04-28-2020 End: 04-28-2020 Hospital Encounter [facility] Periop Comment on above: Painful orthopaedic hardware (HCC) SCREW REMOVAL RIGHT LEG Start: 04-26-2020 End: 04-26-2020 Office Visit 04/26/2020 Office Visit Orthopedic Surgery Jalil Fisher MD [address] [place] [address] [phone] [facility] Orthopedic [facility] Sports Medicine Start: 04-24-2020 End: 04-20-2021 Covid-19/Influenza Order Algorithm Covid-19/Influenza Order Algorithm Microbiology Routine Painful orthopaedic hardware (HCC) Expected: 04/24/2020, Expires: 04/20/2021 [facility] Comment on above: Expected: 04/24/2020, Expires: Start: 04-24-2020 End: 04-24-2020 Office Visit 04/24/2020 Office Visit Lab Jalil Fisher MD [address] [place] [address] [phone] [facility] Start: 04-18-2020 End: 04-18-2020 Office Visit 04/18/2020 Office Visit Orthopedic Surgery Jalil Fisher MD [address] [place] [address] [phone] [facility] Sports [facility] Start: 04-15-2020 End: 04-15-2020 Evaluation 04/15/2020 Evaluation Rehabilitation Jalil Fisher MD [address] [place] [address] [phone] Cassandra Pearce, PT [facility] Ortho Rehab Start: 03-30-2020 End: 03-30-2020 Office Visit 03/30/2020 Office Visit Primary Care Rylie Gore, SECOND MATE [address] [place] [address] [phone] [facility] Start: 03-28-2020 End: 03-28-2020 Office Visit 03/28/2020 Office Visit Orthopedic Surgery Jalil Fisher MD [address] [place] [address] [phone] [facility] Orth[facility] Sports [facility] Start: 02-24-2020 End: 02-24-2020 Office Visit 02/24/2020 Office Visit Orthopedic Surgery Jalil Fisher MD [address] [place] [address] [phone] [facility] Orth[facility] Sports Medicine Start: 01-27-2020 End: 01-27-2020 Office Visit 01/27/2020 Office Visit Orthopedic Surgery Jalil Fisher MD [address] [place] [address] [phone] [facility] Orthopedic [facility] Sports Medicine Start: 11-17-2019 Influenza vaccination [facility] Start: 11-17-2019 Influenza vaccination given Sequential Influenza Vaccine (#1) [facility] Start: 08-14-2019 Depression Remission Assessment Depression Remission Assessment [facility] Start: 08-14-2019 Depression Remission Assessment (PHQ9) Depression Remission Assessment (PHQ9) [facility] Start: 07-23-2019 Screening for malignant neoplasm of colon [facility] Start: 11-16-2018 Influenza vaccination INFLUENZA VACCINE (Season Ended) [facility] Start: 11-16-2018 Influenza vaccination given [facility] Start: 11-10-2018 End: 11-10-2018 Office Visit 11/10/2018 Office Visit [facility], William Senior MD [address] [place] [id number] [facility] Start: 11-16-2017 Influenza vaccination given SEQUENTIAL INFLUENZA VACCINE (#1) [facility] Start: 2017 Fasting lipid profile LIPID SCREENING [facility] Start: 2017 Lipid panel LIPID SCREENING [facility] Start: 1996 Hepatitis B vaccination [facility] Start: 1996 Pneumococcal vaccination Pneumococcal Vaccine (1 of 2 - PCV) [facility] Start: 1996 Pneumococcal Vaccine: Ped or At-Risk (1 of 2 - PCV) Pneumococcal Vaccine: Ped or At-Risk (1 of 2 - PCV) [facility] Start: 1996 Third diphtheria, tetanus and acellular pertussis (DTaP) vaccination TDAP (ADULT) [facility] Start: 08-03-1995 Hepatitis C antibody, confirmatory test Hepatitis C Screening [facility] Start: 08-03-1995 Tetanus vaccination TETANUS [facility] Start: 1993 COVID-19 Vaccine (1 of 2) COVID-19 Vaccine (1 of 2) [facility] Start: 1993 COVID-19 VACCINE (1) COVID-19 VACCINE (1) [facility] Start: 1992 HIV screening [facility] Start: 1990 HIV screening HIV SCREENING DISCUSSION [facility] Start: 1989 COVID-19 Vaccine (1) COVID-19 Vaccine (1) [facility] Start: 08-03-1983 PNEUMOCOCCAL VACCINE SERIES (1 - PCV) PNEUMOCOCCAL VACCINE SERIES (1 - PCV) [facility] Start: 08-03-1983 PNEUMOCOCCAL VACCINE SERIES (1 of 2 - PCV) PNEUMOCOCCAL VACCINE SERIES (1 of 2 - PCV) [facility] Start: 08-03-1983 Pneumococcal Vaccine: Ped or At-Risk (1 - PCV) Pneumococcal Vaccine: Ped or At-Risk (1 - PCV) [facility] Start: 08-03-1983 Pneumococcal Vaccine: Ped or At-Risk (1 of 2 - PCV) Pneumococcal Vaccine: Ped or At-Risk (1 of 2 - PCV) [facility] Start: 08-03-1983 Pneumococcal Vaccine: Ped or At-Risk (1 of 2 - PPSV23) Pneumococcal Vaccine: Ped or At-Risk (1 of 2 - PPSV23) [facility] Start: 1982 COVID-19 Vaccine (#1) COVID-19 Vaccine (#1) [facility] Start: 1982 COVID-19 Vaccine (1) COVID-19 Vaccine (1) [facility] Start: 1980 History and physical examination, annual for health maintenance Wellness Visit [facility] Start: 1978 Caqmyxq-razhc-pwjkobg vaccination MMR Vaccines (1 of 1 - Standard series) [facility] Start: 02-02-1978 COVID-19 Vaccine (#1) COVID-19 Vaccine (#1) [facility] Start: 1977 Hepatitis B vaccination HEP B VACCINE (1 of 3 - 3-dose series) [facility] Start: 1977 Hepatitis C antibody, confirmatory test HEPATITIS C VIRUS SCREENING [facility] Start: 1977 Hepatitis C screening HEPATITIS C VIRUS SCREENING [facility] Start: 1977 Prostate specific antigen measurement PSA Level [facility] Start: 1977 Screening for malignant neoplasm of colon [facility] Start: 1977 Tetanus vaccination TETANUS EVERY 10 YR [facility] 12 lead ECG ECG 12 Lead ECG Routine Chest pain, unspecified type 03/04/2023 3:08 PM EST [facility] Work Phone: End: 09-27-2022 Cannabinoid, Confirmation, Urine [facility] Comment on above: Once for 1 Occurrences starting 09/28/19 23 until 09/27/2022 End: 07-20-2025 Complete blood count with white cell differential, manual CBC and Differential Lab Routine Complex regional pain syndrome i of right lower limb 1 Occurrences starting 07/20/2024 until 07/20/2025 [facility] Work Phone: Comment on above: 1 Occurrences starting 07/20/2024 until 07/20/2025 End: 07-20-2025 Comprehensive metabolic 2000 panel - Serum or Plasma Comprehensive Metabolic Panel Lab Routine Complex regional pain syndrome i of right lower limb Alcohol dependence in remission (HCC) 1 Occurrences starting 07/20/2024 until 07/20/2025 [facility] Comment on above: 1 Occurrences starting 07/20/2024 until 07/20/2025 End: 02-27-2022 CT of lumbar spine CT Lumbar Spine With Contrast Imaging Routine Status post insertion of spinal cord stimulator Acute bilateral low back pain with right-sided sciatica 1 Occurrences starting 02/27/2021 until 02/27/2022 [facility] Work Phone: Comment on above: 1 Occurrences starting 02/27/2021 until 02/27/2022 End: 02-24-2022 CT of lumbar spine without contrast CT Lumbar Spine Without Contrast Imaging Routine Fall down steps, initial encounter Acute bilateral low back pain with right-sided sciatica 1 Occurrences starting 02/24/2021 until 02/24/2022 [facility] Work Phone: Comment on above: 1 Occurrences starting 02/24/2021 until 02/24/2022 Ethanol [Mass/volume ] in Serum or Plasma [facility] End: 07-20-2025 Hemoglobin A1c/Hemoglobin.total in Blood Hemoglobin A1c Lab Routine Elevated glucose level 1 Occurrences starting 07/20/2024 until 07/20/2025 [facility] Comment on above: 1 Occurrences starting 07/20/2024 until 07/20/2025 End: 07-20-2025 Lipid 1996 panel - Serum or Plasma Lipid Panel Lab Routine Encounter for lipid screening for cardiovascular disease 1 Occurrences starting 07/20/2024 until 07/20/2025 [facility] Comment on above: 1 Occurrences starting 07/20/2024 until 07/20/2025 Methicillin resistan t Staphylococcus aureus [Presence] in Unspecified specimen by Organism specific culture MRSA Culture/Screen Microbiology Routine Pre-op testing 11/01/2020 11:02 AM EDT [facility] Work Phone: End: 07-04-2021 MRI of lumbar spine without contrast MR Lumbar Spine Without Contrast Imaging Routine Leg pain, bilateral Chronic bilateral low back pain without sciatica 1 Occurrences starting 07/04/2020 until 07/04/2021 [facility] Comment on above: 1 Occurrences starting 07/04/2020 until 07/04/2021 End: 07-04-2021 MRI of thoracic spine without contrast MR Thoracic Spine Without Contrast Imaging Routine Complex regional pain syndrome type 1 of right lower extremity 1 Occurrences starting 07/04/2020 until 07/04/2021 [facility] Comment on above: 1 Occurrences starting 07/04/2020 until 07/04/2021 Patient referral [facility] Work Phone: End: 09-27-2022 Phosphatidylethanol Confirmation, Blood [facility] Work Phone: Comment on above: Once for 1 Occurrences starting 09/28/19 23 until 09/27/2022 Procedure on tissue specimen [facility] Work Phone: Comment on above: Release Upon Ordering for 1 Occurrences starting 11/09/2024, 1 completed End: 07-22-2018 Standard ECG ECG ECG STAT One Time for 1 Occurrences starting 07/22/2018 until 07/22/2018 [facility] Comment on above: One Time for 1 Occurrences starting 09/2018 until 07/22/2018 SURG PATH REQUEST SURG PATH REQU EST Surg Path Routine Rectal bleeding Release Upon Ordering for 1 Occurrences starting 05/01/2023 [facility] Work Phone: Comment on above: Release Upon Ordering for 1 Occurrences starting 05/01/2023 End: 07-20-2025 Thyrotropin [Units/volume] in Serum or Plasma TSH with Reflex Free T4 Lab Routine Anxiety and depression Screening for thyroid disorder 1 Occurrences starting 07/20/2024 until 07/20/2025 [facility] Comment on above: 1 Occurrences starting 07/20/2024 until 07/20/2025 End: 01-15-2020 US ED Fast Scan US ED Fast Scan Imaging STAT Once for 1 Occurrences starting 01/15/2020 until 01/15/2020 [facility] Comment on above: Once for 1 Occurrences starting 01/15/20 20 until 01/15/2020 US ED Fast Scan US ED Fast Scan Imaging STAT 01/15/2020 8:19 PM EDT [facility] End: 07-01-2020 XR Lumbar Spine Standard with Flex/Ext 4+ Views XR Lumbar Spine Standard with Flex/Ext 4+ Views Imaging Routine Chronic bilateral low back pain without sciatica Complex regional pain syndrome type 1 of right lower extremity Once for 1 Occurrences starting 07/01/2020 until 07/01/2020 [facility] Comment on above: Once for 1 Occurrences starting 07/02/19 21 until 07/01/2020 XR Lumbar Spine Brody dard with Flex/Ext 4+ Views XR Lumbar Spine Standard with Flex/Ext 4+ Views Imaging Routine Chronic bilateral low back pain without sciatica Complex regional pain syndrome type 1 of right lower extremity 07/01/2020 9:50 AM EDT [facility] End: 07-01-2021 XR Lumbar Spine Standard with Flex/Ext 4+ Views XR Lumbar Spine Standard with Flex/Ext 4+ Views Imaging Routine Chronic bilateral low back pain without sciatica Complex regional pain syndrome type 1 of right lower extremity 1 Occurrences starting 07/01/2020 until 07/01/2021 [facility] Comment on above: 1 Occurrences starting 07/01/2020 until 07/01/2021 End: 05-15-2023 XR Lumbar Spine Standard with Flex/Ext 4+ Views XR Lumbar Spine Standard with Flex/Ext 4+ Views Imaging Routine Complex regional pain syndrome i of right lower limb 1 Occurrences starting 05/15/2022 until 05/15/2023 [facility] Work Phone: Comment on above: 1 Occurrences starting 05/15/2022 until 05/15/2023 XR Lumbar Spine Brody dard with Flex/Ext 4+ Views XR Lumbar Spine Standard with Flex/Ext 4+ Views Imaging Routine Complex regional pain syndrome i of right lower limb 05/15/2022 3:13 PM [facility] End: 02-24-2022 XR Myelogram Lumbar With Lumbar Injection XR Myelogram Lumbar With Lumbar Injection Imaging Routine Status post insertion of spinal cord stimulator Acute bilateral low back pain with right-sided sciatica Weakness of right lower extremity 1 Occurrences starting 02/24/2021 until 02/24/2022 [facility] Comment on above: 1 Occurrences starting 02/24/2021 until 02/24/2022 End: 03-22-2022 XR Myelogram Lumbar With Lumbar Injection XR Myelogram Lumbar With Lumbar Injection Imaging Routine Acute bilateral low back pain with right-sided sciatica Weakness of right lower extremity 1 Occurrences starting 03/22/2021 until 03/22/2022 [facility] Work Phone: Comment on above: 1 Occurrences starting 03/22/2021 until 03/22/2022 End: 04-28-2020 XR OR Tibia Fibula Right 2 Views XR OR Tibia Fibula Right 2 Views Imaging Routine One time imaging One time imaging for 1 Occurrences starting 04/28/2020 until 04/28/2020 [facility] Comment on above: One time imaging One time imaging for 1 Occurrences starting 04/28/2020 until 04/28/2020 XR OR Tibia Fibula R ight 2 Views XR OR Tibia Fibula Right 2 Views Imaging Routine 04/28/2020 1:26 PM [facility] End: 01-21-2026 XR Tibia and Fibula - right 2 Views XR Tibia Fibula Right 2 Views Imaging Routine Pain 1 Occurrences starting 01/21/2025 until 01/21/2026 [facility] Work Phone: Comment on above: 1 Occurrences starting 01/21/2025 until 01/21/2026 Immunizations Immunization Date Immunization Notes Care Provider Drake garibay 07-01-2018 diphtheria, tetanus toxoids and acellular pertussis vaccine, unspecified formulation [facility] 07-01-2018 tetanus toxoid, redu lion diphtheria toxoid, and acellular pertussis vaccine, adsorbed [facility] 11-24-2008 hepatitis B vaccine, pediatric or pediatric/adolescent dosage Rylie Gore [employer] Work Phone: 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 [id number] 2024 Unknown [id number] 2020 Medicare [id number]. 1.13.385.2. [id number] 2020 Medicare [id number] 2017 Unknown RICHARD GALVAN [id number] 2017-Present [address] [address] [place] [address] [id number]. [id number] 2014 Medicaid [id number] 2.16.840.1.809943.3.249.13 2014 Medicaid [id number] 1.2.840.760970.1.13.385.2. 7.3.485782.315 2014 Medicaid 1.2.840.723217. 1.13.385.2. 7.3.132402.315 2014 Unknown [id number] 1977 Unknown [id number] 2.16.840.1.760187.3.579.2. 903 1977 Unknown [id number] 2.16.840.1.300112.3.579.2. 903 1977 Unknown [id number] 2.16.840.1.528521.3.579.2. 900 1977 Unknown [id number] 2.16.840.1.131145.3.579.2. 900 1977 Unknown [id number] 2.16.840.1.198930.3.579.2. 900 1977 Unknown [id number] 2.16.840.1.480058.3.579.2. 900 1977 Unknown [id number] 2.16.840.1.758085.3.579.2. 900 1977 Unknown [id number] 2.16840.1.316765.3.579.2. 2 1977 Unknown [id number] 2.16.840.1.452343.3.579.2. 2 1977 Unknown [id number] 2.16.840.1.727578.3.579.2. 2 1977 Unknown [id number] 2.16.840.1.935188.3.579.2. 983 1977 Unknown [id number] 2.16.840.1.097015.3.579.2. 111 1977 Unknown [id number] 2.16.840.1.106282.3.579.2. 111 1977 Unknown [id number] 2.16.840.1.091234.3.579.2. 111 1977 Unknown [id number] 2.16.840.1.282990.3.579.2. 903 1977 Unknown [id number] 2.16.840.1.149480.3.579.2. 902 1977 Unknown [id number] 2.16.840.1.473779.3.579.2. 1977 Unknown [id number] 2.840.1.750744.3.579.2 1977 Unknown [id number] 2.840.1.793041.3.579.2 1977 Unknown [id number] 2.840.1.428919.3.579.2 1977 Unknown [id number] 2.840.1.053440.3.579.2 1977 Unknown [id number] 2.840.1.460554.3.579. 1977 Unknown [id number] 2.840.1.024365.3.579. 1977 Unknown [id number] 20.1.950715.3.579. 1977 Unknown [id number] 2.840.1.295022.3.579.2 1977 Unknown [id number] 2.0.1.519746.3.579.2 1977 Unknown [id number] 2.840.1.448665.3.579.2 1977 Unknown [id number] 2840.1.060125.3.579.2 1977 Unknown [id number] .840.1.128001.3.579.2 1977 Unknown [id number] 2.840.1.682001.3.579.2 1977 Unknown [id number] 2.840.1.140903.3.579.2 1977 Unknown [id number] 2840.1.734778.3.579.2 Private Health Insurance [employer] 1.2.840.576337.1.13.385.2. 7.9.521567.839.315 Unknown [id number] 2.16.840.1.347921.3.579.2. 462 Unknown [id number] 2.16.840.1.491958.3.579.2. 462 Unknown [id number] 2.16.840.1.487196.3.579.2. 462 Unknown [id number] 2.16.840.1.431251.3.579.2. 462 Unknown [id number] 2.16.840.1.235512.3.579.2. 462 Social History Date Type Detail Facility Start: 06-13-2017 End: 06-15-2022 Tobacco smoking status VAIS Unknown if ever smoked [facility] Start: 1975 Sex Assigned At Not on file [facility] Start: 07-01-2018 End: 10-28-2024 Tobacco smoking status NHIS Current every day smoker [facility] History of tobacco use Cigarette Smoker O [facility] Start: 07-01-2018 End: 11-09-2024 Cigarettes smoked current (pack per day) - Reported [facility] Start: 12-26-2017 Alcohol Comment a day [facility] Start: 08-08-2018 Alcohol Comment past 25 years [facility] Start: 10-11-2018 Alcohol Comment Drinks 24 beers daily [facility] Start: 10-26-2019 End: 01-26-2025 Alcohol intake Current drinker of alcohol (finding) [facility] Start: 05-04-2019 Alcohol Comment DAILY. LAST DRINK 05/04/19 at 11am [facility] Start: 04-30-2021 End: 06-01-2022 Exposure to SARS-CoV-2 (event) Not sure [facility] Start: 11-03-2019 End: 10-28-2024 Tobacco use and exposure Never used [facility] Start: 01-16-2020 Alcohol Comment Patient states 6 beers a day [facility] Start: 11-07-2018 Alcohol Comment DAILY. LAST DRINK 8AM 11-07-18 [facility] Exposure to SARS-CoV -2 (event) Unable to assess [facility] Start: 02-16-2022 Alcohol Comment 12 pack of beer a day [facility] Start: 03-23-2022 History SDOH Alcohol Frequency 5 [facility] Start: 03-23-2022 History SDOH Alcohol Std Drinks 3 [facility] Start: 03-23-2022 History SDOH Social Connections Yazidi 1 [facility] Start: 03-23-2022 History SDOH Social Connections Membership 2 [facility] Start: 03-23-2022 History SDOH Social Connections Living 7 [facility] Start: 03-23-2022 History SDOH Physical Activity DPW 0 [facility] Start: 02-02-2018 Heavy [facility] Start: 02-02-2018 Marijuana [facility] Start: 02-02-2018 With Family [facility] Start: 02-03-2018 Cigarettes [facility] Start: 1975 Sex Assigned At Male [facility] Start: 03-23-2022 End: 11-09-2024 Humiliation, Afraid, Rape, and Kick questionnaire [HARK] [facility] Within the last year , have you been afraid of your partner or ex-partner? No [facility] Are you now , , , , never or living with a partner? Never [facility] How often to you hav e a drink containing alcohol? 4 or more times a week [facility] How many standard dr inks containing alcohol do you have on a typical day? 5 or 6 [facility] How often do you hav e 6 or more drinks on 1 occasion? Daily or almost daily [facility] How hard is it for y ou to pay for the very basics like food, housing, medical care, and heating Not hard at all [facility] Do you feel stress - tense, restless, nervous, or anxious, or unable to sleep at night because your mind is troubled all the time - these days [OSQ] To some extent [facility] (I/We) worried wheprisca er (my/our) food would run out before (I/we) got money to buy more. Never true [facility] Start: 09-26-2022 Alcohol Comment 30 beers a day for 20 + years. [facility] Start: 12-17-2017 Gender identity Identifies as male gender (finding) [facility] Start: 07-01-2018 Sexual orientation Heterosexual (finding) [facility] How hard is it for y ou to pay for the very basics like food, housing, medical care, and heating Hard [facility] (I/We) worried wheprisca er (my/our) food would run out before (I/we) got money to buy more. Sometimes true [facility] The food that (I/we) bought just didn't last, and (I/we) didn't have money to get more. Often true [facility] Start: 07-10-2024 End: 07-13-2024 Sex Male (finding) [facility] Start: 10-28-2024 Tobacco Comment Started smoking around age 17 [facility] Medical Equipment Procedure Code Equipment Code Equipment Origin al Text Equipment Identifier Dates Plate 3.5 X 207m m 12hl Rt Lg [facility] [place] - [id number] Start: 01-16-2020 Screw 3.5 X 75mm Rohit Angle Lock S-T - [id number] Start: 01-16-2020 Wire K 2mm Maryann - [id number] Start: 01-16-2020 Comment on above: Description: NOT IMP LANTED, USED FOR REDUCTION Screw 3.5x16mm Cortex Self-Tap - [id number] Start: 01-16-2020 Comment on above: Description: USED FO R REDUCTION- IN AND OUT Screw 3.5x26mm Cortex Self-Tap - [id number] Start: 01-16-2020 Screw 3.5x28mm Cortex Self-Tap - [id number] Start: 01-16-2020 Screw 3.5 X 28mm Rohit Angle Lock S-T - [id number] Start: 01-16-2020 Comment on above: Description: 1 IMPLA NTED, 1 IN AND OUT USED FOR REDUCTION Screw 3.5 X 30mm Rohit Angle Lock S-T - [id number] Start: 01-16-2020 Screw 3.5 X 44mm Rohit Angle Lock S-T - [id number] Start: 01-16-2020 Screw 3.5 X 70mm Rohit Angle Lock S-T - [id number] Start: 01-16-2020 1-Screw [id number] Start: 04-28-2020 Lead 60cm Perc Octrode Trial - [id number] Start: 11-15-2020 Comment on above: Description: Not pre sent on admission. Lead 60cm Perc Octrode Trial - [id number] Start: 11-15-2020 Comment on above: Description: Not pre sent on admission. Proclaim Xr 5 Generator ()[id number] ()[id number])BVH3 22.1, [id number]_imp FDA Start: 12-02-2020 Lead 60cm Penta - [id number] ()[id number])[id number](10)NA(2 1)[id number], [id number]_imp FDA Start: 12-02-2020 Sealant 10ml Hemostatic Matrix Fast Prep Floseal - Sna ()[id number])[id number](10)HA21 0710(21)NA, [id number]_imp FDA Start: 12-02-2020 Hemostat 8 X 12. 5cm X 10mm Surgifoam Gelatin Sponge - Sna [id number] Start: 12-02-2020 Strip 10 X 2 X 0.6cm 12cc Sgl Mastergraft - Sna [id number] Start: 08-03-2021 2.0x10 Self Drilling Screw [id number] Start: 08-03-2021 Comment on above: Description: Load 2- 7 [id number] Allofuse Dbm Put ty 5cc [id number]_imp Start: 08-03-2021 Proclaim Drg ()[id number] (17)[id number](10)NA(2 1)KNE697.1, 1646718_imp, [id number]_exp FDA Start: 02-20-2022 2.0x10 Self Drilling Screw [id number] Start: 02-20-2022 Comment on above: Description: Load 2- 7 [id number] Hemostat 2 X 4in Surgicel Fibrillar - Sna [id number])[id number])[id number](10)3940 865(21)NA, 1506629_imp FDA Start: 08-03-2021 Hemostat 4 X 8in Surgicel - Sna (01)[id number] (17)[id number](10)3940 771(21)NA, 1506630_imp FDA Start: 08-03-2021 Sealant 10ml Hemostatic Matrix Fast Prep Floseal - Sna (01)[id number] (17)[id number](10)HA22 0382(21)NA, 1506631_imp FDA Start: 08-03-2021 Hemostat 8 X 12. 5cm X 10mm Surgifoam Gelatin Sponge - Sna (01)[id number] (17)[id number](10)2660 63(21)NA, 1506633_imp FDA Start: 08-03-2021 Hemostat 4 X 8in Surgicel - Sna [id number])[id number])[id number](10)3942 342(21)NA, 1646348_imp FDA Start: 02-20-2022 Hemostat 2 X 4in Surgicel Fibrillar - Sna [id number])[id number] (17)[id number](10)3942 642(21)NA, 1646349_imp FDA Start: 02-20-2022 Hemostat 8 X 12. 5cm X 10mm Surgifoam Gelatin Sponge - Sna ()[id number])[id number](10)2680 00(21)NA, 1646352_imp FDA Start: 02-20-2022 Sealant 10ml Hemostatic Matrix Fast Prep Floseal - Sna (01)[id number] (17)[id number](10)HA22 1045(21)NA, 1646355_imp FDA Start: 02-20-2022 Slim Tip Drg (01)[id number])[id number](10)NA(2 1)[id number], 1646619_imp, 1646619_exp FDA Start: 02-20-[address] Slim Tip Drg ()[id number])[id number](10)NA(2 1)[id number], 1646684_imp, 1646684_exp FDA Start: 02-20-2022 Hemostat 2 X 4in Surgicel Fibrillar - [id number] Start: 11-09-2024 Hemostat 8 X 12. 5cm X 10mm Surgifoam Gelatin Sponge - [id number] Start: 11-09-2024 Sealant 10ml Hemostatic Matrix Fast Prep Floseal W/Recothrom - [id number] Start: 11-09-2024 Hemostat 4 X 8in Surgicel Original Absorbable - [id number] Start: 11-09-2024 Lead 60cm Perc Octrode Trial - [id number]_exp Start: 11-09-2024 Comment on above: Description: Not pre sent on admission. Lead 60cm Perc Octrode Trial - [id number]_exp Start: 11-09-2024 Comment on above: Description: Not pre sent on admission. Goals Date Patient Goal Desired Activity /State Personal health goal Personal health goal Comment on above: Pt will be independe nt in a HEP to improve muscular strength and endurance of the affected LE, knee/hip ROM and gait/balance exercises. Pt will reduce pain in the affected RLE to 5/10 or to an accepted level to allow return to prior level of functional and recreational activities. Pt will be able to demonstrate A/PROM equal to the unaffected limb to allow the patient to sit comfortably, lay/sleep comfortably and perform ADL without pain. Pt will be able to demonstrate improved strength of the affected LE to enable rising from a chair and negotiate steps reciprocally without pain in the knee. Pt will be able to ambulate with normal gait pattern showing full knee extension during stance phase, normal knee flexion during swing phase and symmetrical stride length without assistive device. Functional Status Date Assessment Result Facility 07-13-2024 Functional status Ambulates [facility] Work Phone: 06-18-2022 Functional status Up ad fabio;Bathroom Priv ilege [facility] Work Phone: 06-17-2022 Functional status None [facility] Work Phone: Mental Status Date Assessment Result Facility 07-12-2024 Cognitive function Voice/Name [facility] Work Phone: 06-18-2022 Cognitive function Voice/Name [facility] Work Phone: Clinical Notes 07-01-2020 to 01-26-2025 Jalil Fisher MD - 01/26/2025 10:31 AM Naun Santana PA-C - 01/11/2025 10:23 AM James Musa PTA - 01/11/2025 10:15 AM EDTPatient InstructionsPatient InstructionsProcedure Summary Note Date & Type Note Facility 01-26-2025 Note [facility] [address] (11) [facility] [address] [facility] [id number] Lon Burks is a 49 y.o. male being seen today, 01/26/25, Chief Complaint Patient presents with Right Lower Leg - Pain [chief complaint] right leg pain HPI Dictation: This man has a history of previous ORIF tibial plateau fracture he is complaining of pain over the hardware with x-rays showing well-healed fracture hardware seems to be in appropriate position does not appear prominent screws have backed out there is some bony prominence anteriorly but this is not related to the hardware [hpi] Physical Exam Dictation: [PE] again on exam well-healed surgical scar there is some diffuse tenderness along the scar Assessment and Plan Dictation: [AP] this man adamantly wants the hardware removed explained to him that #1 his leg may not feel better after its removed and #2 there is a risk of refracture and for 6 to 8 weeks he have to limit weightbearing he understands thoroughly understands risks of refracture and no guarantees regarding the permanent and the discomfort he is experiencing will arrange a date I have reviewed all relevant histories, medications, allergies, and problem list items with Lon Burks during this visit. Review of Systems Constitutional: Negative for chills and fever. HENT: Negative for congestion. Respiratory: Negative for shortness of breath. Cardiovascular: Negative for chest pain. Gastrointestinal: Negative for diarrhea, nausea and vomiting. Neurological: Negative for headaches. Psychiatric/Behavioral: Negative for behavioral problems. There were no vitals taken for this visit. Imaging: No results found. 1. Pain of right lower extremity Return for postop evaluation after scheduled surgery. Jalil Fisher MD AUTHENTICATED BY JALIL FISHER, ON 01/26/2025 10:33:05 [facility] 01-26-2025 History of Presen t illness Narrative [facility] [address] ([address]) [facility] [address] [facility] [id number] Lon Burks is a 49 y.o. male being seen today,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 Reported on 03/19/2024 .) sertraline (ZOLOFT) 50 MG tablet (Patient not taking: Reported on 03/19/2024 .) traZODone (DESYREL) 50 MG tablet Take 1 (one) tablet (50 mg total) by mouth every night at bedtime . (Patient not taking: Reported on 03/19/2024 .) No current facility-administered medications for this visit. Patient Instructions Take medication with food documented in this [id number] Instructions* Patient Instructions* Blanca Corey CNP - 03/19/2024 4:06 PM EST Take medication with food * Attachments The following attachments cannot be sent through Care Everywhere. * Otitis Media ([place]) documented in this [id number] Evaluation + Plan note* Assessment & Plan Note - Rylie Gore CNP - 08/22/2023 3:57 PM EDT Associated Problem(s): Rash -No rash present at this time. -Has been getting intermittently for >10 years only when his mayberry and scalp hair is growing out. Does improve when closely shaven. He does not wish to continue to have closely shaven hair -We discussed differentials including folliculitis and dermatitis -He has tried otc steroid creams and moisturizers and does not feel improvement -He would like to see dermatology and today is primarily requesting this referral -In the meantime I did discuss hygiene and making sure to keep areas clean. -He can take pictures of rash when it appears to have in case no rash is present when he sees dermatology [id number] Miscellaneous Notes* Assessment & Plan Note - Rylie Gore CNP - 08/22/2023 3:57 PM EDTAssociated Problem(s): Rash -No rash present at this time. -Has been getting intermittently for >10 years only when his mayberry and scalp hair is growing out. Does improve when closely shaven. He does not wish to continue to have closely shaven hair -We discussed differentials including folliculitis and dermatitis -He has tried otc steroid creams and moisturizers and does not feel improvement -He would like to see dermatology and today is primarily requesting this referral -In the meantime I did discuss hygiene and making sure to keep areas clean. -He can take pictures of rash when it appears to have in case no rash is present when he sees dermatology documented in this [id number] History of Present illness Narrative* Rylie Gore CNP - 08/22/2023 3:40 PM EDT [facility] [address] [facility] [address] [place] [id number] Name: Lon Burks Age: 48 y.o. Sex: male : 1975 Chief Complaint Patient presents with Rash Patient having break out on his face and scalp for 10+ year that seems to be worsening.The rash comes and goes. Patient would like a referral to Dermatology. He has used many OTC creams. Lon Burks is a 48 y.o. male being seen on 08/22/23 presenting with Rash (Patient having break outon his face and scalp for 10+ year that seems to be worsening.The rash comes and goes. Patient would like a referral to Dermatology. He has used many OTC creams. ) . History of Present Illness: Here today requesting referral to dermatology. Reports chronic intermittent rash to his face more specifically in his facial hair and scalp that has been occurring for 10 or more years. Finds it hardto grow facial hair as this is when the rash come and will be itchy, red, and he will get pustules.Scalp will get similar rash when his hair is not closely shaven. Finds the rash problematic as he does like to have longer hair and a mayberry. Today there is no current rash. Does wash his mayberry and scalp with Head in Shoulders daily. Has tried several otc eczema creams, otc topical steriod creams, and moisturizers but does not feel any have been effective. Rash This is a chronic problem. The current episode started more than 1 year ago. The affected locationsinclude the face and scalp. The rash is characterized by dryness, itchiness, scaling and redness. Pertinent negatives include no congestion, cough, eye pain, facial edema, fatigue, rhinorrhea, shortness of breath or sore throat. Past treatments include topical steroids and moisturizer (shaving). There is no history of eczema. Past Medical History: Past Medical History: Diagnosis [...] disease Neg Hx Medications: Current Outpatient Medications: multivitamin,therapeutic (THERA-TABS ORAL), Take 1 tablet by mouth daily ., Disp: , Rfl: Allergies: Allergies: No [...] Review of Systems Constitutional: Negative for appetite change and fatigue. HENT: Negative for congestion, facial swelling, rhinorrhea, sore throat and trouble swallowing. Eyes: Negative for pain. Respiratory: Negative for cough and shortness of breath. Cardiovascular: Negative for chest pain and palpitations. Gastrointestinal: Negative. Musculoskeletal: Negative for gait problem. Skin: Positive for rash (intermittent rash). Neurological: Negative. Hematological: Negative for adenopathy. Physical Exam Constitutional: General: He is not in acute distress. Appearance: Normal appearance. He is normal weight. He is not ill-appearing or toxic-appearing. HENT: Head: Normocephalic and atraumatic. Right Ear: External ear normal. Left Ear: External ear normal. Nose: Nose normal. Eyes: General: Right eye: No discharge. Left eye: No discharge. Conjunctiva/sclera: Conjunctivae normal. Cardiovascular: Rate and Rhythm: Normal rate and regular rhythm. Heart sounds: Normal heart sounds. Pulmonary: Effort: Pulmonary effort is normal. Breath sounds: Normal breath sounds. Musculoskeletal: Cervical back: Normal range of motion. Skin: Findings: No rash. Comments: He does have a mayberry present at this time. There is no rash noted to scalp or mayberry on exam. Neurological: Mental Status: He is alert and oriented to person, place, and time. BP 136/85 (BP Location: Right arm, Patient Position: Sitting, BP Cuff Size: Adult) Pulse 86 Temp 98.2 F (36.8 C) (Temporal) Resp 14 Ht 5' 8" Wt 71.7 kg (158 lb) SpO2 92% BMI 24.02 kg/m Height: 5' 8" Weight: 71.7 kg (158 lb) Body mass index is 24.02 kg/m . Assessment and Plan: Problem List Items Addressed This Visit Rash - Primary -No rash present at this time. -Has been getting intermittently for >10 years only when his mayberry and scalp hair is growing out. Does improve when closely shaven. He does not wish to continue to have closely shaven hair -We discussed differentials including folliculitis and dermatitis -He has tried otc steroid creams and moisturizers and does not feel improvement -He would like to see dermatology and today is primarily requesting this referral -In the meantime I did discuss hygiene and making sure to keep areas clean. -He can take pictures of rash when it appears to have in case no rash is present when he sees dermatology Relevant Orders Ambulatory referral to Dermatology Due for medicare wellness. Return sooner if needed No results found for this or any previous visit (from the past 336 hour(s)). Rylie Gore CNP 08/22/23 12:36 PM documented in this [id number] Attending History and physical note* Andrés Hagen MD - 05/01/2023 9:00 AM EST I have examined the patient and reviewed the previous H&P completed on date 05/01/2023 and thereare no changes. Vitals: 05/01/23 0837 BP: 111/69 Pulse: 95 Resp: 13 Temp: 97.6 degrees F (36.4 degrees C) TempSrc: Infrared SpO2: 99% Weight: 70.3 kg (155 lb) Height: 1.727m NPO since midnight Mallampati score 1 ASA score 3 Andrés Hagen MD, 05/01/2023, 9:03 AM. Source Note - Andrés Hagen MD - 04/23/2023 10:40 AM EST CHIEF COMPLAINT: Chief Complaint Patient presents with New Patient Rectal bleeding and liver lesion History of Present Illness: Lon Burks is a 47 y.o. male Pt is here for rectal bleeding and liver lesion. Pt states he has had rectal bleeding for years, but he started detox a couple weeks ago and it has been continuous for the last 2 weeks. He states it is bright red blood. It occurs with BM only. Reports a lot of blood. He also complains of constipation. He is taking a stool softener without any relief. Pt states he had a colonoscopy about 5 or moreyears ago (due to rectal bleeding) and thinks he had benign colon polyps. Reports that bleeding will happen with Bms for a while, then will just stop. His Hg on 04/21/23 was low at 8.9. For the liver lesion, the pt states he broke his ribs a couple weeks prior to that ER visit and wasn't sure if the CT findings were related to that or a true lesion. Pt went to [facility] ER on 04/21/[address] scan abdomen and pelvis performed on 04/21/23 showed mild jejunal wall thickening. Fluid in small bowel. Findings may represent enteritis. Mild bilateral hydroureteronephrosis which maybe related to bladder distention. 1.1 cm low-density lesion in the right hepatic dome. He is staying at [facility] for alcohol detox. Hgb on 04/08 was 13.4. When he went to the ED on 04/21 the Hgb was 8.9 Does report taking antacid pills to coat his stomach before he eats so that he feels better after eating. Denies overt heartburn, however. Denies abdominal pain. No past medical history on file. Patient Active Problem List Diagnosis Alcohol abuse Episode of recurrent major depressive disorder Drug addiction Anxiety disorder Past Surgical History: Procedure Laterality Date COLONOSCOPY DIAGNOSTIC LEG SURGERY Titanium plate over thibodeaux SPINAL CORD STIMULATOR IMPLANT No Known Allergies Current Outpatient Medications: acamprosate DR [address], Take 2 tablets by mouth 3 times daily., Disp: , Rfl: baclofen 10 MG tablet, Take 2 tablets by mouth 3 times daily., Disp: , Rfl: Bisacodyl [address], Take 4 tablets by mouth daily as needed for Constipation., Disp: , Rfl: cloNIDine 0.1 MG tablet, Take 1 tablet by mouth 2 times daily., Disp: , Rfl: Docusate 100 MG capsule, Take 1 capsule by mouth 2 times daily., Disp: , Rfl: Folic acid 1 MG tablet, Take 1 tablet by mouth daily., Disp: , Rfl: magnesium oxide 400 (241.3 Mg) MG tablet, Take 0.5 tablets by mouth 2 times daily., Disp: , Rfl: multivitamin tablet, Take 1 tablet by mouth daily., Disp: , Rfl: Pantoprazole (Protonix) [address] tablet DR, Take 1 tablet by mouth daily., Disp: , Rfl: predniSONE 20 MG tablet, Take 4 tablets by mouth daily., Disp: , Rfl: QUEtiapine 100 MG tablet, Take 1 tablet by mouth daily. At bedtime, Disp: , Rfl: thiamine mononitrate 100 MG tablet, Take 1 tablet by mouth daily., Disp: , Rfl: traZODone 50 MG tablet, Take 1 tablet by mouth At bedtime., Disp: , Rfl: gabapentin 600 MG tablet, Take 1 tablet by mouth 3 times daily. (Patient taking differently: Take 1.5 tablets by mouth 3 times daily.), Disp: 90 tablet, Rfl: 0 hydroCODone-acetaminophen 5-325 MG tablet, Take 1 tablet by mouth every 6 hours as needed for Moderate Pain for up to 5 days., Disp: 10 tablet, Rfl: 0 sucralfate 1 g Tab, Take 1 tablet by mouth 4 times daily for 7 days., Disp: 28 tablet, Rfl: 0 Social History Socioeconomic History Marital status: Single Spouse name: Not on file Number of children: Not on file Years of education: Not on file Highest education level: Not on file Occupational History Not on file Tobacco Use Smoking status: Every Day Packs/day: 2 Types: Cigarettes Smokeless tobacco: Never Substance and Sexual Activity Alcohol use: Yes Alcohol/week: 12.0 standard drinks of alcohol Types: 12 Cans of beer per week [...] on file Housing Stability: Not on file History reviewed. No pertinent family history. Review of Systems - Review of Systems Constitutional: Negative for appetite change. Respiratory: Negative for shortness of breath. Gastrointestinal: Positive for anal bleeding, blood in stool and constipation. Negative for abdominal pain, diarrhea, nausea, rectal pain and vomiting. Neurological: Negative for dizziness and weakness. Physical Exam Constitutional: Appearance: Normal appearance. He is not ill-appearing. HENT: Head: Normocephalic and atraumatic. Eyes: General: No scleral icterus. Cardiovascular: Rate and Rhythm: Normal rate. Pulmonary: Effort: Pulmonary effort is normal. No respiratory distress. Abdominal: General: There is no distension. Tenderness: There is no abdominal tenderness. Genitourinary: Rectum: External hemorrhoid (Minor) present. No tenderness or anal fissure. Skin: General: Skin is warm and dry. Neurological: Mental Status: He is alert and oriented to person, place, and time. Psychiatric: Mood and Affect: Mood normal. Behavior: Behavior normal. Vital Signs: Pulse 92, height 1.727 m (5' 8"), weight 70.5 kg (155 lb 6.4 oz), SpO2 96 %. Labs: Lab Results Component Value Date WBC 7.9 04/21/2023 HGB 8.9 (L) 04/21/2023 HCT 25.7 (L) 04/21/2023 MCV 93.9 04/21/2023 Lab Results Component Value Date CALCIUM 9.0 04/21/2023 CO2 27 04/21/2023 BUN 8 04/21/2023 No results found for: "AMYLASE" Lab Results Component Value Date LIPASE 45 04/21/2023 Lab Results Component Value Date ALT 19 04/21/2023 AST 27 04/21/2023 ALKPHOS 51 04/21/2023 Lab Results Component Value Date INR 0.9 04/21/2023 INR 0.98 07/22/2018 Imaging: Assessment: Lon Burks is a 47 y.o.male with Significant rectal bleeding. He has a history of this. Hgb in late March ~13. Now two days ago itwas ~8. He also has a history of upper GI complaints, and he is on PPI and sucralfate. Thankfully, he seems asymptomatic from the blood loss. Cscope more than 5 years ago. Currently in [facility] for detox from [facility]. I see other admission for alcohol intoxication. MELD score is normal (All pertinent labs within normal limits) There is a possible very small lesion on the liver, but patient wants to wait to pursue any furtherimaging at this time. ICD-10-CM 1. Rectal bleeding K62.5 2. Anxiety disorder, unspecified type F41.9 3. Alcohol abuse F10.10 4. Blood loss anemia D50.0 Plan: Diagnostic EGD and Cscope with possible banding. [employer] Phone: [phone] History and physical note* Andrés Hagen MD - 05/01/2023 9:00 AM EST I have examined the patient and reviewed the previous H&P completed on date 05/01/2023 and thereare no changes. Vitals: 05/01/23 0837 BP: 111/69 Pulse: 95 Resp: 13 Temp: 97.6 degrees F (36.4 degrees C) TempSrc: Infrared SpO2: 99% Weight: 70.3 kg (155 lb) Height: 1.727m NPO since midnight Mallampati score 1 ASA score 3 Andrés Hagen MD, 05/01/2023, 9:03 AM. Source Note - Andrés Hagen MD - 04/23/2023 10:40 AM EST CHIEF COMPLAINT: Chief Complaint Patient presents with New Patient Rectal bleeding and liver lesion History of Present Illness: Lon Burks is a 47 y.o. male Pt is here for rectal bleeding and liver lesion. Pt states he has had rectal bleeding for years, but he started detox a couple weeks ago and it has been continuous for the last 2 weeks. He states it is bright red blood. It occurs with BM only. Reports a lot of blood. He also complains of constipation. He is taking a stool softener without any relief. Pt states he had a colonoscopy about 5 or moreyears ago (due to rectal bleeding) and thinks he had benign colon polyps. Reports that bleeding will happen with Bms for a while, then will just stop. His Hg on 04/21/23 was low at 8.9. For the liver lesion, the pt states he broke his ribs a couple weeks prior to that ER visit and wasn't sure if the CT findings were related to that or a true lesion. Pt went to [facility] ER on 04/21/[address] scan abdomen and pelvis performed on 04/21/23 showed mild jejunal wall thickening. Fluid in small bowel. Findings may represent enteritis. Mild bilateral hydroureteronephrosis which maybe related to bladder distention. 1.1 cm low-density lesion in the right hepatic dome. He is staying at [facility] for alcohol detox. Hgb on 04/08 was 13.4. When he went to the ED on 04/21 the Hgb was 8.9 Does report taking antacid pills to coat his stomach before he eats so that he feels better after eating. Denies overt heartburn, however. Denies abdominal pain. No past medical history on file. Patient Active Problem List Diagnosis Alcohol abuse Episode of recurrent major depressive disorder Drug addiction Anxiety disorder Past Surgical History: Procedure Laterality Date COLONOSCOPY DIAGNOSTIC LEG SURGERY Titanium plate over thibodeaux SPINAL CORD STIMULATOR IMPLANT No Known Allergies Current Outpatient Medications: acamprosate DR [address], Take 2 tablets by mouth 3 times daily., Disp: , Rfl: baclofen 10 MG tablet, Take 2 tablets by mouth 3 times daily., Disp: , Rfl: Bisacodyl [address], Take 4 tablets by mouth daily as needed for Constipation., Disp: , Rfl: cloNIDine 0.1 MG tablet, Take 1 tablet by mouth 2 times daily., Disp: , Rfl: Docusate 100 MG capsule, Take 1 capsule by mouth 2 times daily., Disp: , Rfl: Folic acid 1 MG tablet, Take 1 tablet by mouth daily., Disp: , Rfl: magnesium oxide 400 (241.3 Mg) MG tablet, Take 0.5 tablets by mouth 2 times daily., Disp: , Rfl: multivitamin tablet, Take 1 tablet by mouth daily., Disp: , Rfl: Pantoprazole (Protonix) [address] tablet DR, Take 1 tablet by mouth daily., Disp: , Rfl: predniSONE 20 MG tablet, Take 4 tablets by mouth daily., Disp: , Rfl: QUEtiapine 100 MG tablet, Take 1 tablet by mouth daily. At bedtime, Disp: , Rfl: thiamine mononitrate 100 MG tablet, Take 1 tablet by mouth daily., Disp: , Rfl: traZODone 50 MG tablet, Take 1 tablet by mouth At bedtime., Disp: , Rfl: gabapentin 600 MG tablet, Take 1 tablet by mouth 3 times daily. (Patient taking differently: Take 1.5 tablets by mouth 3 times daily.), Disp: 90 tablet, Rfl: 0 hydroCODone-acetaminophen 5-325 MG tablet, Take 1 tablet by mouth every 6 hours as needed for Moderate Pain for up to 5 days., Disp: 10 tablet, Rfl: 0 sucralfate 1 g Tab, Take 1 tablet by mouth 4 times daily for 7 days., Disp: 28 tablet, Rfl: 0 Social History Socioeconomic History Marital status: Single Spouse name: Not on file Number of children: Not on file Years of education: Not on file Highest education level: Not on file Occupational History Not on file Tobacco Use Smoking status: Every Day Packs/day: 2 Types: Cigarettes Smokeless tobacco: Never Substance and Sexual Activity Alcohol use: Yes Alcohol/week: 12.0 standard drinks of alcohol Types: 12 Cans of beer per week [...] on file Housing Stability: Not on file History reviewed. No pertinent family history. Review of Systems - Review of Systems Constitutional: Negative for appetite change. Respiratory: Negative for shortness of breath. Gastrointestinal: Positive for anal bleeding, blood in stool and constipation. Negative for abdominal pain, diarrhea, nausea, rectal pain and vomiting. Neurological: Negative for dizziness and weakness. Physical Exam Constitutional: Appearance: Normal appearance. He is not ill-appearing. HENT: Head: Normocephalic and atraumatic. Eyes: General: No scleral icterus. Cardiovascular: Rate and Rhythm: Normal rate. Pulmonary: Effort: Pulmonary effort is normal. No respiratory distress. Abdominal: General: There is no distension. Tenderness: There is no abdominal tenderness. Genitourinary: Rectum: External hemorrhoid (Minor) present. No tenderness or anal fissure. Skin: General: Skin is warm and dry. Neurological: Mental Status: He is alert and oriented to person, place, and time. Psychiatric: Mood and Affect: Mood normal. Behavior: Behavior normal. Vital Signs: Pulse 92, height 1.727 m (5' 8"), weight 70.5 kg (155 lb 6.4 oz), SpO2 96 %. Labs: Lab Results Component Value Date WBC 7.9 04/21/2023 HGB 8.9 (L) 04/21/2023 HCT 25.7 (L) 04/21/2023 MCV 93.9 04/21/2023 Lab Results Component Value Date CALCIUM 9.0 04/21/2023 CO2 27 04/21/2023 BUN 8 04/21/2023 No results found for: "AMYLASE" Lab Results Component Value Date LIPASE 45 04/21/2023 Lab Results Component Value Date ALT 19 04/21/2023 AST 27 04/21/2023 ALKPHOS 51 04/21/2023 Lab Results Component Value Date INR 0.9 04/21/2023 INR 0.98 07/22/2018 Imaging: Assessment: Lon Burks is a 47 y.o.male with Significant rectal bleeding. He has a history of this. Hgb in late March ~13. Now two days ago itwas ~8. He also has a history of upper GI complaints, and he is on PPI and sucralfate. Thankfully, he seems asymptomatic from the blood loss. Cscope more than 5 years ago. Currently in [place] for detox from EtOH. I see other admission for alcohol intoxication. MELD score is normal (All pertinent labs within normal limits) There is a possible very small lesion on the liver, but patient wants to wait to pursue any furtherimaging at this time. ICD-10-CM 1. Rectal bleeding K62.5 2. Anxiety disorder, unspecified type F41.9 3. Alcohol abuse F10.10 4. Blood loss anemia D50.0 Plan: Diagnostic EGD and Cscope with possible banding. [facility] Phone: [phone] Hospital Discharge instructions* Patient Instructions* Kaylee Moser RN - 05/01/2023 9:00 AM EST Discharge Instructions Please Note: You have had a surgical or endoscopy procedure completed at [facility]. If you have any questions or concerns regarding your procedure following your discharge home, you maycall the hospital and ask for the Ambulatory Surgical Unit or call our physician's office directly.If help is needed after hours, please call [facility] @ [phone] and ask to be connected with the physician who completed your procedure. Moderate Sedation: You have had a procedure that required some medicine to reduce anxiety and pain. This medication iscalled moderate sedation. After receiving this medication, you may be sleepy, but able to breathe on your own. The effects of the medication may last for several hours. Follow these instructions after moderate sedation: -Do not drink alcohol, drive or operate machinery for 24 hours. -Do not do anything where dizziness or clumsiness would be dangerous. -Do not make important decisions or sign any legal documents for the next 24 hours. -Go directly home. Rest quietly at home today, then you can be up and about. -Make sure A RESPONSIBLE PERSON stays with you the rest of today and overnight for your protection and safety. -Start your diet with liquids and light foods (jello, soup, toast). Then gradually progress the diet if you are not nauseated. Call your doctor if you have: -a dickerson or blue skin color. -excessive sleepiness. -continuous vomitting. -trouble breathing. -any new problems or concerns. Follow-up Care:as directed Information about your procedure: Esophagogastroduodenoscopy (EGD) This test examined the lining of your esophagus, stomach and upper intestine. A thin, flexible tube, called an endoscope, was inserted through your mouth. The doctor was able to see and take picturesof your esophagus, stomach and intestinal lining. The doctor may have taken biopsies or cut small tissue samples of your gastrointestinal lining. Your doctor will talk to you about the results. You may have a minor sore throat the rest of the day. Warm salt water gargling or lozenges of your choice will most likely relieve your discomfort. Avoid very hot or very cold liquids for the next 2 hours. At home, please follow these instructions: -Rest today and slowly increase your activity. -Once you are able to drink and eat without any problems, you may resume your regular diet. -Tenderness, swelling or pain may occur at the IV site. If you experience this apply warm soaks to the area. Results of the EGD today: Biopsies of the stomach. Colonoscopy - Examination of the large bowel A colonoscopy was done to examine your large intestine or colon. Your doctor inserted a flexible tube-like instrument called an endoscope through your rectum and into your colon. The endoscope has a light on the end of it, as well as a camera. Your doctor was able to see the inside of your colon and possibly remove tissue or questionable growths to send to the lab. After your procedure you can expect: -Mild bloating, abdominal cramping and gas are common after the procedure and should subside in 2-3hours. -Blood streaking on the toilet tissue, especially following removal of polyps, is also normal. -It is possible to not have a bowel movement for 1-2 days. At home, please follow these instructions: -Rest today and slowly increase your activity. -Once you are able to drink and eat without any problems, you may resume your regular diet. -Walking will help you get rid of the gas. -You might have stomach cramps and pass more gas today. -You may notice a small amount of blood in your bowel movements. Results of the Colonoscopy today: banding of hemorrhoids documented in this encounterVan [facility] Phone: [phone] 433-992302-04-2024 Emergency department Note* Zee Cordero RN - 04/21/2023 2:33 PM EST Report called to [facility]. Advised labs will be coming with patient along with CT results. That patient should schedule for Colonoscopy and EGD soon. That the physician may want to recheck his CBC in a day or two per provider. [place] [employer] Phone: [phone] Emergency department Note* Zee Cordero RN - 04/21/2023 2:33 PM EST Report called to [facility]. Advised labs will be coming with patient along with CT results. That patient should schedule for Colonoscopy and EGD soon. That the physician may want to recheck his CBC in a day or two per provider. * Zee Cordero RN - 04/21/2023 2:14 PM EST Provider offered to admit patient for colonoscopy in the next day or two. Patient declined, would like to have done as outpatient. * Tato Kaminski MD - 04/21/2023 11:45 AM EST [facility] EMERGENCY DEPARTMENT ENCOUNTER PATIENT NAME: Lon Burks : 1975 DANIEL: 04/21/2023 PROVIDER: Tato Kaminski MD CHIEF COMPLAINT Chief Complaint Patient presents with Rectal Bleeding Presents with complaints of chronic rectal bleeding. States that it seems to be worse ovr the past couple of weeks since he has been detoxing from alcohol. States that he also has broken rib and chronic leg pain and is requesting pain medication at this time. Patient is seen and evaluated in a timely fashion. Nurses Notes are reviewed and I agree except as noted in the HPI. HISTORY OF PRESENT ILLNESS Lon Burks is a 47 y.o. male who presents to Emergency Department with Rectal Bleeding (Presents with complaints of chronic rectal bleeding. States that it seems to be worse ovr the past couple of weeks since he has been detoxing from alcohol. States that he also has broken rib and chronic leg pain and is requesting pain medication at this time. ) PATIENT PRESENTS WITH A CHIEF COMPLAINT OF RECTAL BLEEDING. HE STATES THAT IT HAS BEEN ONGOING FOR YEARS. HOWEVER HE STATES HE CAN NOT REMEMBER WHAT HE HAS BEEN DIAGNOSED WITH ANY SPECIFIC CAUSE OF THIS CHRONIC RECTAL BLEEDING. STATES OVER THE PAST 2 WEEKS IT HAS GOTTEN WORSE. HE HAS A HISTORY OF HEMORRHOIDS. HE IS ALSO COMPLAINING OF SOME ABDOMINAL PAIN. REVIEW OF SYSTEMS Ten-point review of systems is negative except those documented in above HPI including constitutional, HEENT, respiratory, cardiovascular, gastrointestinal, genitourinary, musculoskeletal, skin, neurological, hematological and behavioral. PAST MEDICAL HISTORY has no past medical history on file. SURGICAL HISTORY has no past surgical history on file. CURRENT MEDICATIONS Previous Medications ACAMPROSATE DR [address] Take 2 tablets by mouth 3 times daily. BACLOFEN 10 MG TABLET Take 2 tablets by mouth 3 times daily. BISACODYL [address] Take 4 tablets by mouth daily as needed for Constipation. CLONIDINE 0.1 MG TABLET Take 0.1 mg by mouth 2 times daily. DOCUSATE 100 MG CAPSULE Take 1 capsule by mouth 2 times daily. FAMOTIDINE 20 MG TAB TABLET Take 1 tablet by mouth 2 times daily. FOLIC ACID 1 MG TABLET Take 1 tablet by mouth daily. GABAPENTIN 600 MG TABLET Take 1 tablet by mouth 3 times daily. HYDROCODONE-ACETAMINOPHEN 5-325 MG TABLET Take 1 tablet by mouth every 6 hours as needed for Moderate Pain for up to 5 days. LORAZEPAM 1 MG TAB TABLET Take 1 tablet by mouth every 8 hours as needed for agitation, Seizures orInsomnia for up to 14 days. MAGNESIUM OXIDE 400 (241.3 MG) MG TABLET Take 200 mg by mouth 2 times daily. MULTIVITAMIN TABLET Take 1 tablet by mouth daily. NORTRIPTYLINE 10 MG CAPSULE Take 1 capsule by mouth at bedtime. OMEPRAZOLE [address] CAPSULE Take 2 capsules by mouth daily. PANTOPRAZOLE (PROTONIX) [address] TABLET DR Take 1 tablet by mouth daily. PREDNISONE 20 MG TABLET Take 4 tablets by mouth daily. QUETIAPINE 100 MG TABLET Take 1 tablet by mouth daily. At bedtime SUCRALFATE 1 G TAB Take 1 tablet by mouth 4 times daily for 7 days. THIAMINE MONONITRATE 100 MG TABLET Take 1 tablet by mouth daily. TRAZODONE 50 MG TABLET Take 50 mg by mouth At bedtime. ALLERGIES has No Known Allergies. FAMILY HISTORY has no family status information on file. family history is not on file. SOCIAL HISTORY reports that he has been smoking cigarettes. He has been smoking an average of 2 packs per day. He has never used smokeless tobacco. He reports current alcohol use of about 12.0 standard drinks of alcohol per week. He reports current drug use. Drug: Marijuana. PHYSICAL EXAM temporal temperature is 98 F (36.7 C). His blood pressure is 117/79 and his pulse is 76. His respiration is 12 and oxygen saturation is 99%. Physical Exam BP 117/79 Pulse 76 Temp 98 F (36.7 C) (Temporal) Resp 12 SpO2 99% Smoking Status Every Day There is no height or weight on file to calculate BMI. GENERAL: Alert, oriented and in no acute distress. HEENT: EYES: Pupils equal, round and reactive, extraocular muscles intact. Nose: membranes clear, no polyps. EARS: Tympanic membranes are clear. MOUTH: moist and pink with no exudates. Mallampati class . NECK: is supple, no thyromegaly. No stridor. HEART: regular rate and rhythm. No murmurs, rubs or gallops. LUNGS: Clear to auscultation bilaterally. No wheezing, rhonchi or rales. ABDOMEN: Positive bowel sounds, soft, nontender, nondistended. RECTAL EXAM DEMONSTRATES NO EVIDENCEOF EXTERNAL HEMORRHOIDS, ANAL FISSURES, OR ACTIVE HEMORRHAGE EXTREMITIES: No cyanosis, clubbing or edema. NEURO: grossly intact. Normal affect. Gait normal. ANCILLARY TEST RESULTS EKG: Interpreted by me LAB RESULTS: Results for orders placed or performed during the hospital encounter of 04/21/23 COMPREHENSIVE METABOLIC PROFILE ER Result Value Ref Range SODIUM 138 136 - 145 mEq/L POTASSIUM 3.9 3.5 - 5.1 mEq/L CHLORIDE 105 98 - 107 mEq/L CARBON DIOXIDE (CO2) 27 22 - 31 mEq/L ANION GAP 9.9 (L) 10.0 - 20.0 mEq/L Glucose 132 (H) 70 - 126 mg/dL BUN 8 7 - 22 mg/dL CREATININE SERUM 0.8 0.4 - 1.1 mg/dL ESTIMATED GFR >=60 CALCIUM 9.0 8.4 - 10.2 mg/dL AST 27 10 - 42 U/L ALT 19 10 - 40 U/L ALKALINE PHOSPHATASE 51 38 - 126 U/L BILIRUBIN, TOTAL 0.4 0.3 - 1.2 mg/dL PROTEIN, TOTAL 7.0 6.4 - 8.3 g/dL Albumin 3.9 3.5 - 5.0 g/dL Globulin 3.1 2.9 - 3.3 g/dL A/G Ratio 1.3 1.2 - 1.5 CBC, EDIF, PLATELET Result Value Ref Range WBC (WHITE BLOOD COUNT) 7.9 4.8 - 10.8 thou/cumm RBC 2.74 (L) 4.70 - 6.10 mil/cumm HEMOGLOBIN (HGB) 8.9 (L) 14.0 - 18.0 g/dL HEMATOCRIT (HCT) 25.7 (L) 42.0 - 52.0 % MEAN CELL VOLUME 93.9 80.0 - 94.0 fL Mean Cell HGB 32.3 (H) 28.0 - 32.0 pg MEAN CELL HGB CONCENTRATION 34.4 33.0 - 37.0 g/dL RBC DISTRIBUTION 15.6 (H) 11.5 - 14.5 % PLATELET COUNT 330 130 - 400 thou/cumm NEUTROPHILS 87.2 (H) 39.4 - 72.5 % LYMPHOCYTE 9.3 (L) 17.6 - 49.6 % MONOCYTES: 2.8 (L) 4.1 - 12.4 % EOSINOPHIL % 0.1 0.0 - 4.0 % BASOPHIL % 0.6 0.0 - 3.0 % SCAN SLIDE NO NO LIPASE Result Value Ref Range LIPASE 45 22 - 51 U/L PROTIME-INR Result Value Ref Range PT 9.9 8.7 - 12.1 sec INR 0.9 0.8 - 1.2 TYPE AND SCREEN - POSSIBLE TRANSFUSION Result Value Ref Range ABO TYPING A RH TYPING POSITIVE ANTIBODY SCREEN NEGATIVE NEGATIVE TYPE AND SCREEN COMPLETED TYPE & SCREEN EXPIRATION DATE 04/28/[address] ABDOMEN/PELVIS WITHOUT CONTRAST Final Result IMPRESSION: 1. Exam is limited without contrast. 2. Mild jejunal wall thickening. Fluid in small bowel. Findings may represent enteritis. 3. Mild bilateral hydroureteronephrosis which may be related to bladder distention. Consider follow-up. 4. 1.1 cm low-density lesion in the right hepatic dome. Consider follow-up with liver protocol CT or MRI. 5. Further evaluation of GI bleed may be considered with nuclear medicine tagged RBC scan. Electronically signed by: Edna Johnson MD 04/21/2023 01:17 PM EST MEDICAL DECISION MAKING (MDM) AND ED COURSE MDM Summary: PATIENT SEEN AND EVALUATED FOR SUSPECTED GI BLEEDING. HEMOGLOBIN IS 8.9. FOUR YEARS AGO WAS AT 14. HOWEVER ON TODAY'S EXAM THERE WAS NO ACTIVE EVIDENCE OF BLEEDING. GIVEN THE DROP IN HEMOGLOBIN PATIENT WAS DEFINITELY OFFERED ADMISSION AND COLONOSCOPY AND ENDOSCOPY. AT THIS TIME HE HAS SPECIFICALLY DECLINED ADMISSION AND PREFERS OUTPATIENT FOLLOW-UP. PATIENT WAS GIVEN GI FOLLOW-UP Vitals: 04/21/23 1143 04/21/23 1238 BP: 124/78 117/79 Pulse: 80 76 Resp: 13 12 Temp: 98 degrees F (36.7 degrees C) TempSrc: Temporal SpO2: 98% 99% 1) Number and Complexity of Problems Problem List This Visit: Rectal Bleeding (Presents with complaints of chronic rectal bleeding. States that it seems to be worse ovr the past couple of weeks since he has been detoxing from alcohol. States that he also has broken rib and chronic leg pain and is requesting pain medication at this time. ) Differential Diagnosis includes (but not limited to): Diagnoses Considered but I have low suspicion of: Pertinent Comorbid Conditions: See HPI, PMH and PSH 2) Data Reviewed (none if left blank) External Documentation Reviewed: Care everywhere in [facility] is reviewed. Previous patient encounter documents & history available on EMR was reviewed: Yes See Formal Diagnostic Results above for the lab and radiology tests and orders. 3) Treatment and Disposition ED Reassessment: Stable ED stay Case discussed with consulting clinician: Shared Decision-Making: Treatment plan and disposition discussed with the patient/family, questions answered Code Status: Reviewed with patient and/or family as ED Medications administered this visit: (None if blank) Medications dicyclomine (BENTYL) injection 20 mg (20 mg Intramuscular Given 04/21/23 0113) PROCEDURES: CRITICAL CARE: FINAL IMPRESSION AND DISPOSITION 1. Gastrointestinal hemorrhage, unspecified gastrointestinal hemorrhage type 2. Liver lesion PATIENT REFERRED TO: Andrés Hagen MD [address] [place] [id number] FOLLOW-UP WITH DR. HAGEN REGARDING BLEEDING AND LIVER LESION DISCHARGE MEDICATIONS: New Prescriptions No medications on file (Please note that portions of this note were completed with a voice recognition program. Efforts were made to edit the dictations but occasionally words aremis-transcribed.) MD Tato Hamilton MD 04/21/23 1413 * Carla Tilley LPN - 04/21/2023 2:07 AM EST Pt chart sent to [place] [facility] [place] [facility] Phone: [phone] Emergency department Note* Zee Cordero RN - 04/21/2023 2:14 PM EST Provider offered to admit patient for colonoscopy in the next day or two. Patient declined, would like to have done as outpatient. [facility] Phone: [phone] 211-140502-04-2024 Physician Emergency department Note* Tato Kaminski MD - 04/21/2023 11:45 AM EST [facility] EMERGENCY DEPARTMENT ENCOUNTER PATIENT NAME: Lon Burks : 1975 DANIEL: 04/21/2023 PROVIDER: Tato Kaminski MD CHIEF COMPLAINT Chief Complaint Patient presents with Rectal Bleeding Presents with complaints of chronic rectal bleeding. States that it seems to be worse ovr the past couple of weeks since he has been detoxing from alcohol. States that he also has broken rib and chronic leg pain and is requesting pain medication at this time. Patient is seen and evaluated in a timely fashion. Nurses Notes are reviewed and I agree except as noted in the HPI. HISTORY OF PRESENT ILLNESS Lon Burks is a 47 y.o. male who presents to Emergency Department with Rectal Bleeding (Presents with complaints of chronic rectal bleeding. States that it seems to be worse ovr the past couple of weeks since he has been detoxing from alcohol. States that he also has broken rib and chronic leg pain and is requesting pain medication at this time. ) PATIENT PRESENTS WITH A CHIEF COMPLAINT OF RECTAL BLEEDING. HE STATES THAT IT HAS BEEN ONGOING FOR YEARS. HOWEVER HE STATES HE CAN NOT REMEMBER WHAT HE HAS BEEN DIAGNOSED WITH ANY SPECIFIC CAUSE OF THIS CHRONIC RECTAL BLEEDING. STATES OVER THE PAST 2 WEEKS IT HAS GOTTEN WORSE. HE HAS A HISTORY OF HEMORRHOIDS. HE IS ALSO COMPLAINING OF SOME ABDOMINAL PAIN. REVIEW OF SYSTEMS Ten-point review of systems is negative except those documented in above HPI including constitutional, HEENT, respiratory, cardiovascular, gastrointestinal, genitourinary, musculoskeletal, skin, neurological, hematological and behavioral. PAST MEDICAL HISTORY has no past medical history on file. SURGICAL HISTORY has no past surgical history on file. CURRENT MEDICATIONS Previous Medications ACAMPROSATE DR [address] Take 2 tablets by mouth 3 times daily. BACLOFEN 10 MG TABLET Take 2 tablets by mouth 3 times daily. BISACODYL [address] Take 4 tablets by mouth daily as needed for Constipation. CLONIDINE 0.1 MG TABLET Take 0.1 mg by mouth 2 times daily. DOCUSATE 100 MG CAPSULE Take 1 capsule by mouth 2 times daily. FAMOTIDINE 20 MG TAB TABLET Take 1 tablet by mouth 2 times daily. FOLIC ACID 1 MG TABLET Take 1 tablet by mouth daily. GABAPENTIN 600 MG TABLET Take 1 tablet by mouth 3 times daily. HYDROCODONE-ACETAMINOPHEN 5-325 MG TABLET Take 1 tablet by mouth every 6 hours as needed for Moderate Pain for up to 5 days. LORAZEPAM 1 MG TAB TABLET Take 1 tablet by mouth every 8 hours as needed for agitation, Seizures orInsomnia for up to 14 days. MAGNESIUM OXIDE 400 (241.3 MG) MG TABLET Take 200 mg by mouth 2 times daily. MULTIVITAMIN TABLET Take 1 tablet by mouth daily. NORTRIPTYLINE 10 MG CAPSULE Take 1 capsule by mouth at bedtime. OMEPRAZOLE [address] CAPSULE Take 2 capsules by mouth daily. PANTOPRAZOLE (PROTONIX) [address] TABLE[address] DR Take 1 tablet by mouth daily. PREDNISONE 20 MG TABLET Take 4 tablets by mouth daily. QUETIAPINE 100 MG TABLET Take 1 tablet by mouth daily. At bedtime SUCRALFATE 1 G TAB Take 1 tablet by mouth 4 times daily for 7 days. THIAMINE MONONITRATE 100 MG TABLET Take 1 tablet by mouth daily. TRAZODONE 50 MG TABLET Take 50 mg by mouth At bedtime. ALLERGIES has No Known Allergies. FAMILY HISTORY has no family status information on file. family history is not on file. SOCIAL HISTORY reports that he has been smoking cigarettes. He has been smoking an average of 2 packs per day. He has never used smokeless tobacco. He reports current alcohol use of about 12.0 standard drinks of alcohol per week. He reports current drug use. Drug: Marijuana. PHYSICAL EXAM temporal temperature is 98 F (36.7 C). His blood pressure is 117/79 and his pulse is 76. His respiration is 12 and oxygen saturation is 99%. Physical Exam BP 117/79 Pulse 76 Temp 98 F (36.7 C) (Temporal) Resp 12 SpO2 99% Smoking Status Every Day There is no height or weight on file to calculate BMI. GENERAL: Alert, oriented and in no acute distress. HEENT: EYES: Pupils equal, round and reactive, extraocular muscles intact. Nose: membranes clear, no polyps. EARS: Tympanic membranes are clear. MOUTH: moist and pink with no exudates. Mallampati class . NECK: is supple, no thyromegaly. No stridor. HEART: regular rate and rhythm. No murmurs, rubs or gallops. LUNGS: Clear to auscultation bilaterally. No wheezing, rhonchi or rales. ABDOMEN: Positive bowel sounds, soft, nontender, nondistended. RECTAL EXAM DEMONSTRATES NO EVIDENCEOF EXTERNAL HEMORRHOIDS, ANAL FISSURES, OR ACTIVE HEMORRHAGE EXTREMITIES: No cyanosis, clubbing or edema. NEURO: grossly intact. Normal affect. Gait normal. ANCILLARY TEST RESULTS EKG: Interpreted by me LAB RESULTS: Results for orders placed or performed during the hospital encounter of 04/21/23 COMPREHENSIVE METABOLIC PROFILE ER Result Value Ref Range SODIUM 138 136 - 145 mEq/L POTASSIUM 3.9 3.5 - 5.1 mEq/L CHLORIDE 105 98 - 107 mEq/L CARBON DIOXIDE (CO2) 27 22 - 31 mEq/L ANION GAP 9.9 (L) 10.0 - 20.0 mEq/L Glucose 132 (H) 70 - 126 mg/dL BUN 8 7 - 22 mg/dL CREATININE SERUM 0.8 0.4 - 1.1 mg/dL ESTIMATED GFR >=60 CALCIUM 9.0 8.4 - 10.2 mg/dL AST 27 10 - 42 U/L ALT 19 10 - 40 U/L ALKALINE PHOSPHATASE 51 38 - 126 U/L BILIRUBIN, TOTAL 0.4 0.3 - 1.2 mg/dL PROTEIN, TOTAL 7.0 6.4 - 8.3 g/dL Albumin 3.9 3.5 - 5.0 g/dL Globulin 3.1 2.9 - 3.3 g/dL A/G Ratio 1.3 1.2 - 1.5 CBC, EDIF, PLATELET Result Value Ref Range WBC (WHITE BLOOD COUNT) 7.9 4.8 - 10.8 thou/cumm RBC 2.74 (L) 4.70 - 6.10 mil/cumm HEMOGLOBIN (HGB) 8.9 (L) 14.0 - 18.0 g/dL HEMATOCRIT (HCT) 25.7 (L) 42.0 - 52.0 % MEAN CELL VOLUME 93.9 80.0 - 94.0 fL Mean Cell HGB 32.3 (H) 28.0 - 32.0 pg MEAN CELL HGB CONCENTRATION 34.4 33.0 - 37.0 g/dL RBC DISTRIBUTION 15.6 (H) 11.5 - 14.5 % PLATELET COUNT 330 130 - 400 thou/cumm NEUTROPHILS 87.2 (H) 39.4 - 72.5 % LYMPHOCYTE 9.3 (L) 17.6 - 49.6 % MONOCYTES: 2.8 (L) 4.1 - 12.4 % EOSINOPHIL % 0.1 0.0 - 4.0 % BASOPHIL % 0.6 0.0 - 3.0 % SCAN SLIDE NO NO LIPASE Result Value Ref Range LIPASE 45 22 - 51 U/L PROTIME-INR Result Value Ref Range PT 9.9 8.7 - 12.1 sec INR 0.9 0.8 - 1.2 TYPE AND SCREEN - POSSIBLE TRANSFUSION Result Value Ref Range ABO TYPING A RH TYPING POSITIVE ANTIBODY SCREEN NEGATIVE NEGATIVE TYPE AND SCREEN COMPLETED TYPE & SCREEN EXPIRATION DATE 04/28/[address] ABDOMEN/PELVIS WITHOUT CONTRAST Final Result IMPRESSION: 1. Exam is limited without contrast. 2. Mild jejunal wall thickening. Fluid in small bowel. Findings may represent enteritis. 3. Mild bilateral hydroureteronephrosis which may be related to bladder distention. Consider follow-up. 4. 1.1 cm low-density lesion in the right hepatic dome. Consider follow-up with liver protocol CT or MRI. 5. Further evaluation of GI bleed may be considered with nuclear medicine tagged RBC scan. Electronically signed by: Edna Johnson MD 04/21/2023 01:17 PM EST MEDICAL DECISION MAKING (MDM) AND ED COURSE MDM Summary: PATIENT SEEN AND EVALUATED FOR SUSPECTED GI BLEEDING. HEMOGLOBIN IS 8.9. FOUR YEARS AGO WAS AT 14. HOWEVER ON TODAY'S EXAM THERE WAS NO ACTIVE EVIDENCE OF BLEEDING. GIVEN THE DROP IN HEMOGLOBIN PATIENT WAS DEFINITELY OFFERED ADMISSION AND COLONOSCOPY AND ENDOSCOPY. AT THIS TIME HE HAS SPECIFICALLY DECLINED ADMISSION AND PREFERS OUTPATIENT FOLLOW-UP. PATIENT WAS GIVEN GI FOLLOW-UP Vitals: 04/21/23 1143 04/21/23 1238 BP: 124/78 117/79 Pulse: 80 76 Resp: 13 12 Temp: 98 degrees F (36.7 degrees C) TempSrc: Temporal SpO2: 98% 99% 1) Number and Complexity of Problems Problem List This Visit: Rectal Bleeding (Presents with complaints of chronic rectal bleeding. States that it seems to be worse ovr the past couple of weeks since he has been detoxing from alcohol. States that he also has broken rib and chronic leg pain and is requesting pain medication at this time. ) Differential Diagnosis includes (but not limited to): Diagnoses Considered but I have low suspicion of: Pertinent Comorbid Conditions: See HPI, PMH and PSH 2) Data Reviewed (none if left blank) External Documentation Reviewed: Care everywhere in [facility] is reviewed. Previous patient encounter documents & history available on EMR was reviewed: Yes See Formal Diagnostic Results above for the lab and radiology tests and orders. 3) Treatment and Disposition ED Reassessment: Stable ED stay Case discussed with consulting clinician: Shared Decision-Making: Treatment plan and disposition discussed with the patient/family, questions answered Code Status: Reviewed with patient and/or family as ED Medications administered this visit: (None if blank) Medications dicyclomine (BENTYL) injection 20 mg (20 mg Intramuscular Given 04/21/23 1131) PROCEDURES: CRITICAL CARE: FINAL IMPRESSION AND DISPOSITION 1. Gastrointestinal hemorrhage, unspecified gastrointestinal hemorrhage type 2. Liver lesion PATIENT REFERRED TO: Andrés Hagen MD [address] [place] [address] FOLLOW-UP [address] DR. HAGEN REGARDING BLEEDING AND LIVER LESION DISCHARGE MEDICATIONS: New Prescriptions No medications on file (Please note that portions of this note were completed with a voice recognition program. Efforts were made to edit the dictations but occasionally words aremis-transcribed.) MD Tato Hamilton MD 04/21/23 1417 [employer] Work Phone: [phone]) 570-868002-04-2024 Emergency department Note* Carla Tilley LPN - 04/21/2023 2:07 AM EST Pt chart sent to [facility] [employer] [id number] History of Present illness Narrative* Camila Leon CNP - 03/24/2023 11:27 AM EST Patient contacted on-call service regarding fall and possible broken ribs. Patient states that he is coughing up blood but did not want to go to the emergency department for evaluation. Patient advised being that it is Saturday and we are not in the office that is advisable to go to the emergency department. Patient informed of the freestanding emergency department in [place] but is [facility]. Patient voiced understanding and is planning to proceed there. documented in this [id number] History of Present illness Narrative* Lakshmi Echeverria MA - 03/06/2023 1:50 PM EST Called pt to get him scheduled but he did not want to schedule right now. Pt ask about his pain management referral I gave him the phone number to [facility] [phone] I advised himthat we sent it down on 03/04. Pt voiced understanding. And will call us if he needs anything * Cathy Lozano RN - 03/06/2023 12:54 PM EST Lon Burks Admitted: 03/04/2023 Discharge Date: 03/05/23 Clinical Summary Lon Burks is a 47 y.o. male patient of Rylie Gore CNP with history of alcohol abuse presented to [facility] with fall and dizziness. Fall Trauma workup negative CT scans reviewed Acute respiratory failure with hypoxia, resolved Aspiration pneumonia Suspect this is why he fell Empiric Rocephin azithromycin Chest CT with positive pneumonia Transition to Augmentin x 7 days at [place] Follow up with PCP, repeat chest imaging 4-6 weeks Sepsis POA Secondry to PNA Plan as above I performed a sepsis reassessment on the patient 03/04/2023 3:15 PM Vital Signs: BP 131/82 Pulse (!) 113 Temp 98 F (36.7 C) (Oral) Resp 17 SpO2 93% Cardiac examination significant for: Tachycardia Pulmonary examination significant for: Clear lung freeman Capillary refill is: Brisk Peripheral Pulse is: 2+ Skin is: Normal Alcohol abuse Encourage cessation No upcoming PCP appts Successful contact made with pt via telephone. Patient states he isn't doing great. Patient states he has PNA and it feels like it is all over in his chest. Pt states he is taking his antibiotics as prescribed. Patient states he would like a PCP appt soon. Patient states he can only do Mondays at this time. Patient states he cannot drive and depends on his mother. Patient states his mother has Mondays off. This will be relayed to PCP/PCP office. Patient is agreeable to this RNCM placing a referral to ambulatory community health worker to look at possible transportation options. Referral placed. Pt denies any other needs at this time and thanked this RNCM for the call. No future appointments. * Cathy Lozano RN - 03/06/2023 12:51 PM EST 03/06/23 1250 RICHARD General Info Assessment completed with: Patient Post-Discharge Call: Medications Is the patient taking all medications as directed (includes completed medication regime)? Yes Medications reviewed with patient/caregiver? Yes (Discharge meds reviewed) Is the patient having any side effects they believe may be caused by any medication additions or changes? No Does the patient have all medications ordered at discharge? Yes Nursing Interventions Nurse provided patient education Appointments Does the patient have a primary care provider? Yes Does the patient have a follow up appointment scheduled related to this admission? No What is preventing the patient from scheduling follow up appointments within 7 days of discharge? Haven't had time Nursing Interventions Educated patient on importance of making appointment;Advised patient to make appointment Self Management Was Home Health ordered? No Was Durable Medical Equipment (DME) ordered? No Are there psychosocial issues? Yes Psychosocial Issues Transportation issue Nursing Interventions Other (Comment) (CHW referral) Patient Teaching Did the patient receive a copy of their discharge instructions? Yes What is the patient's perception of their health status since discharge? Same Provided education for complications or exacerbations and when to seek emergent/urgent care? Yes Is the patient/cargiver able to teach back the hierarchy of who to call/visit for symptoms/problems? (PCP, Specialist, Home Health Nurse, Urgent Care, ED, 911) Yes Did the patient feel the follow up calls were helpful during their recovery period? Yes documented in this [id number] Hospital course Narrative* Lisa Cote PA-C - 03/05/2023 10:[address] [facility] DISCHARGE SUMMARY Lon Burks Admitted: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 as needed for hearing aid concerns. Electronically Signed by: Lew Perez, CCC/A, FAAA DONATO Certified Caustic Plant Worker 02/27/21 8:43 AM documented in this [id number] Miscellaneous Notes* Addendum Note - Rylie Villarreal PA-C - 02/24/2021 9:13 AM EST Addended by: RYLIE VILLARREAL on: 02/24/2021 09:13 AM Modules accepted: Orders documented in this [id number] History of Present illness Narrative* Lew Alarcon - 02/23/2021 1:03 PM EST Images from the original note were not included. [facility] [address] [place] [address] Name: Lon Burks : 1975 Date: 02/23/21 Hearing Aid Contact Note: Ms. Julianne Mcguire dropped off Mr. Webbs hearing aids and marine oil terminal superintendent for repair. See attached note below. A visual inspection revealed blocked wax traps, binaurally and no sound from the left hearing aid. I cleaned both hearing aids and changed the wax traps and domes. Function returned to normal. I thenchecked the hearing aids in Mr. Brennan marine oil terminal superintendent and they are charging appropriately. I called Ms. Mcguire and left a [employer] message stating the above and let her know that Mr. Brennan hearing aids are ready for steel pickler. Electronically Signed by: Lew Perez, CCC/A, FAAA DONATO Certified Caustic Plant Worker 02/23/21 1:03 PM documented in this [id number] History of Present illness Narrative* Rylie Villarreal PA-C - 02/21/2021 9:36 AM EST Neurosurgery [...] who agreed with the above recommendations. Rylie Villarreal MS, MPAP, PA-C [facility] Subjective: Since his last visit, [...] that reprogramming was attempting by the [employer] underwriting sales representative, and the patient reports that he [...] of the right foot documented in this [id number] History of Present illness Narrative* Carla Leggett [...] Diehl determine next steps. documented in this [id number] History of Present illness Narrative* Lew Mendez - 02/03/2021 2:24 PM EST Images from the original note were not included. [facility] [address] [place] [address] Name: Lon Burks : 1975 Date: 02/03/21 Hearing Aid Contact Note: Lon Burks returned today to steel pickler his left and right repaired hearing aid(s) (SN: [id number] & [id number]). Mr. Burks will return as needed for hearing aid concerns. Electronically signed by: Maddy Mendez, CCC-A 02/03/21 2:24 PM documented in this [id number] History of Present illness Narrative* Margoth Duke, Lew - 02/02/2021 1:30 PM EST Images from the original note were not included. [facility] Physician [facility] [address] [place] [address] Name: Lon Burks : 1975 Date: 02/02/21 Hearing Aid Contact Note: Mr. Burks dropped off both of his hearing aids and his hearing aid marine oil terminal superintendent for repair today. I visual inspection revealed that both hearing aid receivers are completely blocked and that there are two wax traps jammed into each market developer. I removed the wax traps and other debris. Function returned to normal. Both hearing aids charged correctly in the marine oil terminal superintendent; however both hearing aids are almost and will need complete charging after Mr. Burks picks them up. I will contact Mr. Burks for steel pickler. Electronically Signed by: Lew Perez, CCC/A, FAAA DONATO Certified Caustic Plant Worker 02/02/21 1:30 PM documented in this [id number] Instructions* Patient Instructions* Rylie Villarreal PA-C - 01/10/2021 11:24 AM EDT No lifting, bending, twisting or overhead reaching for 12 weeks. documented in this [id number] History of Present illness Narrative* Rylie Villarreal PA-C - 01/10/2021 11:06 AM EDT Neurosurgery [...] tub baths, swimming, or hot tubs Rylie Villarreal MS, MPAP, CONSTANCE [facility] Subjective: The [...] shocking sensation. The patient did notbring his php programmer with him to today's visit, so [...] with no other concerns documented in this [id number] History of Present illness Narrative* Rylie Villarreal PA-C - 12/14/2020 8:37 AM EDT Neurosurgery [...] tub baths, swimming, or hot tubs Rylie Villarreal, MS, MPAP, CONSATNCE [facility] Subjective: The patient states that he has had at least 60% relief of his pain thus far. Terry Chavez underwriting sales representative, tweaked the programming during the visit [...] amount of residual scabbing documented in this [id number] History of Present illness Narrative* Carla Leggett [...] needs at this time. documented in this [id number] History of Present illness Narrative* Lizz Dennison RN - 12/02/2020 4:20 PM EDT Patient dressed and ready to be discharged. Patient has ambulated and voided without difficulty this afternoon. Awake and alert and eating well. Pain tolerable. documented in this [id number] Hospital Discharge instructions * Discharge Instr - Other Orders* Kirea Suazo RN - 12/02/2020 12:08 PM EDT [...] not operate a vehicle (car, bike, motorcycle, communication skills instructor) machinery or power tools. Do not make [...] to call your physician or the hospital utility systems repairer operator if you have any questions, and they will be glad to assist you. documented in this [id number] Hospital course Narrative* Ricky Martell MD - 12/02/2020 12:03 PM EDT DISCHARGE SUMMARY Patient: Lon Burks Date of : 1975 Site: [facility] Provider: Rylie Gore CNP Admit Date: [...] Physician(s) Family Provider: Rylie Gore CNP, Address: [address] [place] [id number] Follow Up: No follow-up provider specified. Additional [...] on 12/02/20, 12:03 PM documented in this [id number] Miscellaneous Notes* Brief Op Note - Ricky Martell MD - 12/02/2020 12:00 PM EDT Brief Post Operative Note Patient Name: Lon Burks : 1975 (45 y.o.) Date of Service: 12/02/2020 CSN: [id number] Procedure(s): L1 Laminectomy, insertion of dorsal column spinal cord stimulator electrode(s) and right flank IPG insertion Pre-Operative Diagnoses: * Complex regional pain syndrome type 1 of both lower extremities [G90.523] Post-Operative Diagnoses: * Complex regional pain syndrome type 1 of both lower extremities [G90.523] Surgeon(s) and Role: * Ricky Martell MD - Primary * Rosario Linares, PhD - Surgeon/Physician - Observing Anesthesiologist: Bon Child MD ER RN: Sushila Carroll CRNA University Intern: Long Ferguson RN Diamond Die Driller: Hero Navarro, TECHNOLOGIST University Intern Relief: Bettina Ge RN Scrub Person: Katherine Echeverria RN Monitoring Nurse: Stacey Christian CNP Scrub Person Assist: ST [place] Operative findings: Normal epidural space* Intra and immediate post-operative complications: none* Type of anesthesia used: General Estimated blood loss: 75 mL Estimated urine output: Refer to surgical log Specimen(s): * No specimens in log * Implant(s): Implant Name Type Inv. Item Serial No. First Aid Instructor Lot No. LRB No. Used Action HEMOSTAT 8 X 12.5CM X 10MM SURGIFOAM GELATIN SPONGE - SNA HEMOSTAT 8 X 12.5CM X 10MM SURGIFOAM GELATIN SPONGE NA ETHICON [id number] Right 1 Implanted PROCLAIM XR 5 GENERATOR [id number] STEWART SHAKIRA Right 1 Implanted LEAD 60CM PENTA - [id number] LEAD 60CM PENTA [id number] [place] [address] NA Right 1 Implanted SEALANT 10ML HEMOSTATIC MATRIX FAST PREP FLOSEAL - SNA SEALANT 10ML HEMOSTATIC MATRIX FAST PREP FLOSEAL NA Neo PLM [id number] Right 1 Implanted Drain(s): * No LDAs [...] - 12/02/2020 11:03 AM EDT [facility] [id number] 1975 DATE 12/02/2020 OPERATIVE REPORT SURGEON RICKY MARTELL MD OPERATIONS AND INTELLIGENCE ASSISTANT ROSARIO LINARES MD PREOPERATIVE DIAGNOSIS Complex regional pain [...] successful lead placement in the trial procedure. Paragonah boots were applied and cinched with 2-0 [...] system was interrogated by Lissette Hillman of [employer] and noted to be functioning normally in [...] condition. RICKY MARTELL MD D 12/02/2020 10:09 [id number] T 12/02/2020 11:01 [facility] documented in this [id number] History and physical note* Ricky Martell MD [...] lumbar pain. On 11/15/2020 he underwent with ny successful trial spinal cord stimulator, with 80% [...] Lon Burks Admit Date: [id number] MR #: [id number] : 1975 The H&P has been reviewed and the patient has been examined. I concur with the findings of the H&P. There are no significant changes. It is appropriate to proceed with the planned procedure. Ricky Martell MD 12/02/2020 7:34 AM documented in this [id number] History of Present illness Narrative* Rylie Villarreal PA-C - 11/17/2020 1:55 PM EDT Received call from [employer] underwriting sales representative notifying me that the patient's dressing had [...] follow-up tomorrow as scheduled. documented in this [id number] History of Present illness Narrative* Rylie Villarreal PA-C - 11/16/2020 11:16 AM EDT Neurosurgery [...] bathe - Advised to continue antibiotics Rylie Villarreal, MS, MPAP, CONSTANCE [facility] Subjective: The [...] reportedly improved from pre-op documented in this [id number] Miscellaneous Notes* Addendum Note - Bon Child MD - 11/15/2020 7:18 PM EDT Addendum created 11/15/201917 by Bon Child MD Cosign clinical note documented in this [id number] Surgical operation note* Anesthesia Postprocedure Evaluation - Bon Child MD - 11/15/2020 7:09 PM EDT Anesthesia [...] his anesthetic. * Anesthesia Procedure Notes - Toni VuongMATT - 11/15/2020 10:31 AM EDT Associated Order(s): [...] day, daily cannabis use) documented in this [id number] Procedure anesthesia Narrative * Procedure Summary Procedure [...] Attempts: 1; Removal Date: 11/15/20; Removal Time: 1107 11/15/20 1032 by MATT Mejia 11/15/20 1107 by MATT Mejia documented in this encounter [id number] History and physical note* Roc Omer, SECOND MATE - 11/01/2020 12:03 PM EDT Assessment and [...] Cirrhosis (HCC) Fractures GERD (gastroesophageal reflux disease) Past Medical History Pertinent Negatives: Diagnosis Date Noted Arthritis 01/16/2020 Asthma 01/16/2020 Cancer ([facility]) 01/16/2020 CHF (congestive heart failure) ([facility]) 01/16/2020 Complication of anesthesia 04/28/2020 COPD (chronic obstructive pulmonary disease) ([facility]) 01/16/2020 Coronary artery disease 01/16/2020 Diabetes mellitus ([facility]) 01/16/2020 Disease of thyroid gland 01/16/2020 History of transfusion 01/16/2020 Hypertension 01/16/2020 Sleep apnea, obstructive 11/01/2020 Stroke ([facility]) 01/16/2020 Past Surgical History: Procedure Laterality Date [...] conspicuous Workstation ID: [id number] documented in this [id number] Miscellaneous Notes* Assessment & Plan Note - Roc Omer CNP - 11/01/2020 11:58 AM EDT Associated [...] surgery. * Assessment & Plan Note - Roc Omer CNP - 11/01/2020 11:54 AM EDT Associated Problem(s): Complex regional pain syndrome i of right lower limb Bilateral percutaneous insertion of trial spinal cord stimulator electrode(s) via L1-L2 Approach, fluoroscopic directed scheduled for 11/15/[address] Martell. * Assessment & Plan Note - Roc Omer CNP - 11/01/2020 11:52 AM EDT Associated Problem(s): Tobacco user Smokes 1 ppd. * Assessment & Plan Note - Roc Omer CNP - 11/01/2020 11:51 AM EDT Associated Problem(s): Alcohol dependence (HCC) Patient reports drinking 6 beers/day. documented in this [id number] Instructions* Patient Instructions* Roc Omer CNP - 11/01/2020 11:19 AM EDT Images [...] medications that contain aspirin, such as Honey [place], Pepto-Bismol, Anacin), antiinflammatory medications such as Advil, Motrin, Ibuprofen, Naproxen, Aleve, Honey [place], Pepto-Bismol, Anacin, Diclofenac, Voltaren, Daypro, Etodolac, Ketoprofen, Piroxicam, Relafen, Nabumetone, etc. Also disc ontinue Vitamin C, Vitamin E, Palm-3 Fatty Acid, Fish Oil or Lovaza, and [...] them to the hospital. Patient Instructions for [facility]: Prior to surgery: Surgeon's office will contact you with the scheduled time of your surgery. You may use the Sales Commissions Analyst parking available at the Main Entrance One [...] any makeup or lotions. Remove all nail czech for surgeries involving extremities. Please remember to bring both your insurance card and a photo ID with you on the day of surgery. After your surgery: If you are having outpatient surgery - you must have a licensed otr flatbed company truck driver to take you home. The expectation is that this otr flatbed company truck driver will remain at the hospital for the duration of your procedure. You are advised to have a family member with you for at least 24 hours after being under Anesthesia. If you have sleep apnea and have a CPAP/BIPAP mask, please bring it with you the day of surgery. documented in this [id number] History of Present illness Narrative* Margoth Duke, Lew - 10/20/2020 10:35 AM EDT Images from the original note were not included. [facility] [address] [place] [address] Name: Lon Burks : 1975 Date: 10/20/20 Hearing Aid Contact Note: Mr. Burks returned today for his hearing aid fitting. He was accompanied by his friend, Julianne.He wasfit with two [employer] M50-R NAYA hearing aids. Fit was excellent. All aspects of care and usage were reviewed. All demonstrations were returned correctly. Mr. Burks's phone was connected to his hearing aid and his hearing aids were connected to the "[employer]" nirmala successfully. Mr. Burks was able to answer and disconnect from an in office phone call and he was able to navigate the "[employer]" nirmala successfully after in depth instruction. Hearing aid [...] by: Lew Perez, CCC/A, FAAA DONATO Certified Caustic Plant Worker 10/20/20 10:39 AM documented in this [id number] History of Present illness Narrative* Naun Enrique MD - 10/05/2020 6:29 PM EDT Dictation on: 10/05/2020 6:31 PM by: NAUN ENRIQUE [[id number]] documented in this [id number] History of Present illness Narrative* Margoth Duke AuD - 09/15/2020 1:18 PM EDT Images from the original note were not included. [facility] [address] [place] [address] Name: Lon Burks : 1975 Date: 09/15/20 [...] Disease [] [] Cancer [] [] Y Sangeeta Hoyt/Haile. Skills Ear Surgery R L Vertigo [] [...] has been medically cleared for amplification. Mr. Webbs hearing aid options were discussed. We will proceed with a [employer] M50-R NAYA hearing aid fitting in black [...] understanding. Lew Alarcon, CCC/A, FAAA DONATO Certified Caustic Plant Worker documented in this [id number] History of Present illness Narrative* Ricky Martell [...] approach Ricky Martell MD documented in this [id number] History of Present illness Narrative* Myles Rodriguez [...] Social Gatherings with Friends and Family: Attends Buddhist Services: Active Member of Clubs or Organizations: [...] Myles Rodriguez CNP 08/16/20 documented in this [id number] History of Present illness Narrative* Margoth Duke, AuD - 08/12/2020 7:29 AM EDT Images from the original note were not included. [facility] [address] [place] [address] Name: Lon Burks : 1975 Date: 08/12/20 [...] [] [] Cancer [] [x] Y N Sp./Haile. Skills Ear Surgery R L Vertigo [] [...] by any stimuli above Mr. Burks's speech ear nose throat surgeon threshold (SRT). However, Mr. Burks did report [...] understanding. Lew Alarcon, CCC/A, FAAA DONATO Certified Caustic Plant Worker documented in this [id number] History of Present illness Narrative* Margoth Duke AuD - 08/12/2020 7:29 AM EDT Images from the original note were not included. [facility] [address] [place] [address] Name: Lon Burks : 1975 Date: 08/12/20 [...] by any stimuli above Mr. Burks's speech ear nose throat surgeon threshold (SRT). However, Mr. Burks did report [...] understanding. Lew Alarcon, CCC/A, FAAA DONATO Certified Caustic Plant Worker documented in this [id number] History of Present illness Narrative* Ac Dean [...] hours. Seek immediatemedical attention if necessary. See [place] [facility] or [facility] website for additional information. Screening complete. HPI: [...] hours. Seek immediatemedical attention if necessary. See [facility] or [facility] website for additional information. Screening complete. [facility] History of Present illness Narrative* Rylie Villarreal PA-C - 07/01/2020 8:50 AM EDT [facility] [...] cord stimulator - Nursing notes reviewed Rylie Villarreal, MS, MPAP, [place] [facility] Office: Chief Complaint: Consult (Bilateral [...] He had a previous EMG with Dr. Arreola that revealed tibial nerve injury. He also [...] states that he attended physical therapy at [facility] as directed by Dr. Dean. This [...] in this encounterOhioHealthConsult note Author Alysia Nicole [facility] Note Date/Time July 13, 2024 10: 52am [facility] Medical Records Department [address] [place] [address] Counseling Note - Pharmacy 07/13/24 1051 MR#: [id number] Acct: [id number] Name: LON BURKS Rep #:[id number] : 1975 48 From: Alysia Nicole PCP: RYLIE GORE Status:ADM IN Location: [place] [address] Pharmacy [facility] Pharmacy Service has performed discharge medication reconciliation [...] of their dischargemedications. Patient counseled by pharmacy resource tech, Riccardo. Medications at Discharge Home Medications duloxetine 30 mg capsule,delayed release 30 mg PO DAILY 30 days #30 caps 07/13/24 07/13/24 1051 <Electronically signed by Alysia Nicole> Date _ Alysia Munguia Signature (if applicable): Date CC: ~ Signed [facility] Work Phone: Discharge summary Author Dr. Costello [facility] June 18, 2022 11:16am Note Date/Time June 18, 2022 11:1 6am [facility] Medical Records Department [address] [place] [address] Instructions for Home/Discharge Instructions 06/18/22 1114 MR#: [id number] Acct: [id number] Name: LON BURKS Rep #:[id number] : 1975 46 From: Julee Costello MD [...] Latasha Nye MD; RYLIE GORE ~ Signed [facility] Work Phone: Discharge summary Author Alejo Whitfield [facility] Note Date/Time July 13, 2024 9:2 5am [facility] Medical Records Department [address] [place] [address] Instructions for Home/Discharge Instructions 07/13/24922 MR#: [id number] Acct: [id number] Name: LON BURKS Rep #:[id number] : 1975 48 From: Alejo garcia DO PCP: RYLIE GORE Status:ADM IN [...] for Your Visit: alcohol detox Attending Provider: Alejo Whitfield Primary Care Provider: RYLIE GORE Consulting Providers: Luis Burt; Kunal Roberson Discharge Orders/Prescriptions Prescriptions: New duloxetine 30 mg Capsule,Delayed Release(Dr/Ec) 30 mg PO DAILY 30 Days Qty: 30 2RF No Action NK Referrals / Follow Up: RYLIE GORE [Other] RYLIE GORE [Other] Disposition Disposition (needs filled in before D/C Order can be placed): Home, Self Care 07/13/24924<Electronically signed by Alejo Whitfield DO>Alejo Whitfield DO CC: Dr. Luis Burt DO; Dr. Kunal Roberson DO; RYLIE GORE ~ Signed [facility] Work Phone: Evaluation note* Diagnosis Chronic bilateral low back pain without sciatica Complex regional pain syndrome type 1 of right lower extremity [facility]* Diagnosis Chronic bilateral low back pain without sciatica Complex regional pain syndrome type 1 of right lower extremity [facility]* Diagnosis Chronic bilateral low back pain without sciatica- Primary Leg pain, bilateral Pain in soft tissues of limb Complex regional pain syndrome type 1 of right lower extremity [facility]* Diagnosis Complex regional pain syndrome type 1 of right lower extremity- Primary Chronic pain syndrome Transaminitis Nonspecific elevation of levels of transaminase or lactic acid dehydrogenase (LDH) Alcohol use disorder, severe, dependence [facility] Diagnosis Leg pain, bilateral Pain in [...] ears Unspecified tinnitus [facility]* Diagnosis Complex regional pain syndrome i [...] affecting unspecified site [facility]* Diagnosis Complex regional pain syndrome i [...] affecting unspecified site [facility]* Diagnosis Complex regional pain syndrome type 1, affecting unspecified site- Primary [facility]* Diagnosis Complex regional pain syndrome type 1, affecting unspecified site- Primary [facility] [place]* Diagnosis Complex regional pain syndrome i of right lower limb- Primary Acute post-operative pain Chronic back pain Unspecified backache documented in this encounter [facility] note* Diagnosis Status post insertion of spinal cord stimulator- Primary [facility] [place] [facility]* Diagnosis Sensorineural hearing loss (SNHL) of right ear with restricted hearing of left ear- Primary documented in this encounter [facility] note* Diagnosis Sensorineural hearing loss (SNHL) of right ear with restricted hearing of left ear- Primary [facility] [place] [facility]* Diagnosis Status post insertion of spinal cord stimulator- Primary Fall down steps, initial encounter Acute bilateral low back pain with right-sided sciatica Weakness of right lower extremity Status post insertion of spinal cord stimulator Fall down steps, initial encounter Acute bilateral low back pain with right-sided sciatica documented [facility] [place] [facility]* Diagnosis Status post insertion of spinal cord stimulator- Primary Acute bilateral low back pain with right-sided sciatica documented [facility] [place] [facility]* Diagnosis Sensorineural hearing loss (SNHL) of right ear with restricted hearing of left ear- Primary documented [facility] [place] [facility]* Diagnosis Acute bilateral low back pain with right-sided sciatica- Primary Weakness of right lower extremity documented [facility] [place] [facility]* Diagnosis Excessive cerumen in both ear canals- Primary Sensorineural hearing loss (SNHL) of both ears documented [facility] [place] [facility]* Diagnosis Sensorineural hearing loss (SNHL) of both ears- Primary [facility] [place] [facility]* Diagnosis Sensorineural hearing loss (SNHL) of both ears- Primary documented [facility] [place] [facility]* Diagnosis Status post insertion of spinal cord stimulator- Primary Degenerative disc disease, lumbar documented [facility] [place] [facility]* Diagnosis Complex regional pain syndrome i of right lower limb- Primary Complex regional pain syndrome i of right lower limb- Primary Status post insertion of spinal cord stimulator Complex regional pain syndrome i of right lower limb [facility] Diagnosis Status post insertion of spinal cord stimulator- Primary documented [facility] [place] [facility]* Diagnosis Sensorineural hearing loss (SNHL) of both ears- Primary [facility] Diagnosis Sensorineural hearing loss (SNHL) of both ears- Primary [facility]* Diagnosis Complex regional pain syndrome i of right lower limb- Primary Complex regional pain syndrome i of right lower limb [facility]* Diagnosis Complex regional pain syndrome i of right lower limb [facility]* Diagnosis Status post insertion of spinal cord stimulator- Primary [facility] encounter [facility]* Diagnosis Other type I or II open fracture of proximal end of right tibia with routine healing, subsequent encounter- Primary Complex regional pain syndrome i of right lower limb [facility] Diagnosis Complex regional pain syndrome i of right lower limb- Primary Chronic bilateral low back pain with right-sided sciatica Episode of recurrent major depressive disorder, unspecified depression episode severity (HCC) Alcohol dependence with unspecified alcohol-induced disorder (HCC) Lack of access to transportation documented in this encounter [facility]* Diagnosis Complex regional pain syndrome i of right lower limb- Primary [facility]* Diagnosis Complex regional pain syndrome i of right lower limb- Primary [facility]* Diagnosis Complex regional pain syndrome i of right lower limb- Primary [facility]* Diagnosis Contusion of scalp, initial encounter- Primary Neck sprain, initial encounter Contusion of chest wall, unspecified laterality, initial encounter Closed fracture of multiple ribs, unspecified laterality, initial encounter [facility] Diagnosis Closed fracture of multiple ribs of right side with routine healing, subsequent encounter- Primary Follow-up exam Unspecified follow-up examination [facility]* Diagnosis Onset Date Resolution Status Admitted to alcohol detoxification center acute Alcohol abuse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 [address] [facility] [address] [place] [address] 15171 Consulting Physician Neurological Surgery 11/14/20 Ricky Martell MD [address] [facility] [address] [place] [address] 53946 Consulting Physician Neurological Surgery 11/30/20 Daniel Steen MD [address] [place] [address]18 Consulting Physician Addiction Medicine 09/28/22 Console Operator Relationship Specialty Start Date End Date Rylie Gore CNP [address] [place] [address] PCP - General Nurse Practitioner 04/16/22 Rylie Gore CNP [address] [place] [address] Nurse Practitioner 01/15/20 Nina De Jesus MA Executive Producer Promos 10/13/18 Ricky Martell MD [address] [place], [place] [phone] Consulting Physician Neurological Surgery 11/14/20 Ricky Martell MD [address] [place], [place] [phone] Consulting Physician Neurological Surgery 11/30/20 Daniel Steen MD [address] [place] [address] Consulting Physician Addiction Medicine 09/28/22 Cathy Lozano, traffic line painterGerentological Physiotherapist 03/06/23 03/06/23 Console Operator Relationship Specialty Start Date End Date Rylie Gore CNP [facility] Laura Romero [address] [place] [address]048 PCP - General Nurse Practitioner 04/16/22 Rylie Gore CNP [address] [place] [address] 22552 Nurse Practitioner 01/15/20 Nina De Jesus MA Executive Producer Promos 10/13/18 Ricky Martell MD [address] [facility] [address] [place] [address] 17531 Consulting Physician Neurological Surgery 11/14/20 Ricky Martell MD [address] [facility] [address] [place] [address]38 Consulting Physician Neurological Surgery 11/30/20 Daniel Steen MD [address] [place] [address] 79798 Consulting Physician Addiction Medicine 09/28/22 Margoth Cotter [facility] Worker Case Management 03/07/23 Console Operator Relationship Specialty Start Date End Date Rylie Gore CNP [address] [place] [address] [address] PCP - General Nurse Practitioner 04/16/22 Rylie Gore, PIPER [address] [place] [address]842 Nurse Practitioner 01/15/20 Nina De Jesus MA Executive Producer Promos 10/13/18 Ricky Martell MD [address] VERÓNICA [address] [place], [place] [phone] Consulting Physician Neurological Surgery 11/14/20 Ricky Martell MD [address] M[facility] [address] [place] [address] [phone] Consulting Physician Neurological Surgery 11/30/20 Daniel Steen MD [address] [place] [address]322 Consulting Physician Addiction Medicine 09/28/22 Margoth Cotter [facility] Worker Case Management 03/07/23 Console Operator Relationship Specialty Start Date End Date Rylie Goer CNP [address] [place] [address] [address] PCP - General Nurse Practitioner 04/16/22 Rylie Gore CNP [address] [place] [address] 47680 Nurse Practitioner 01/15/20 Nina De Jesus MA Executive Producer Promos 10/13/18 Ricky Martell MD [address] [address] Consulting Physician Neurological Surgery 11/14/20 Ricky Martell MD [address] [address] Consulting Physician Neurological Surgery 11/30/20 Daniel Steen MD [address] [place] [address] [place] [address] Consulting Physician Addiction Medicine 09/28/22 Margoth Cotter Community Health Worker Case Management 03/07/23 Console Operator Relationship Specialty Start Date End Date Rylie Gore APRN-CNP [address] [place] [address] PCP - General Certified Nurse Practitioner 04/18/20 [place] [address] [place] [address] Physician Sales Service Supervisor 04/21/23 Console Operator Relationship Specialty Start Date End Date Rylie Gore APRN-CNP 200 [place] [address] PCP - General Certified Nurse Practitioner 04/18/20 [place] [address] [place] [address] Physician Sales Service Supervisor 04/21/23 Console Operator Relationship Specialty Start Date End Date Rylie Gore CNP [address] [facility] [place] [address] PCP - General Nurse Practitioner 04/16/22 Rylie Gore CNP 200 [place] [address] Nurse Practitioner 01/15/20 Nina De Jesus MA Executive Producer Promos 10/13/18 Ricky Martell MD [address] [address] Consulting Physician Neurological Surgery 11/14/20 Ricky Martell MD [address] [address] Consulting Physician Neurological Surgery 11/30/20 Daniel Steen MD [address] [place] [address] Consulting Physician Addiction Medicine 09/28/22 Margoth Cotter Community Health Worker Case Management 03/07/23 Console Operator Relationship Specialty Start Date End Date Rylie Gore CNP [address] [place] [address] PCP - General Nurse Practitioner 04/16/22 Rylie Gore CNP [address] [place] [address] Nurse Practitioner 01/15/20 Nina De Jesus MA Executive Producer Promos 10/13/18 Ricky Martell MD [address] [address] Consulting Physician Neurological Surgery 11/14/20 Ricky Martell MD [address] [address] Consulting Physician Neurological Surgery 11/30/20 Daniel Steen MD [address] [place] [address] [place] [address] Consulting Physician Addiction Medicine 09/28/22 Margoth Cotter Community Health Worker Case Management 03/07/23 05/24/23 Console Operator Relationship Specialty Start Date End Date Rylie Gore CNP [address] [place] [address] [place] [address] PCP - General Nurse Practitioner 04/16/22 Rylie Gore CNP [address] [place] [address] Nurse Practitioner 01/15/20 Nina De Jesus MA Executive Producer Promos 10/13/18 Ricky Martell MD [address] [address] Consulting Physician Neurological Surgery 11/14/20 Ricky Martell MD [address] [facility] [address] [place] [address] Consulting Physician Neurological Surgery 11/30/20 Daniel Steen MD 770 [facility] [address] [place] [address] Consulting Physician Addiction Medicine 09/28/22 Console Operator Relationship Specialty Start Date End Date Rylie Gore, PIPER 770 [facility] [place] [address] PCP - General Nurse Practitioner 04/16/22 Rylie Gore, PIPER [address] [place] [address] Nurse Practitioner 01/15/20 Nina De Jesus MA Executive Producer Promos 10/13/18 Ricky Martell MD [address] [facility] [address] [place] [address] Consulting Physician Neurological Surgery 11/14/20 Ricky Martell MD [address] [facility] [address] [place] [address] Consulting Physician Neurological Surgery 11/30/20 Daniel Steen MD 770 [facility] [address] [place] [address] Consulting Physician Addiction Medicine 09/28/22 Team Status: Active Member Role Status Dates SOFÍA YOUNGBLOOD Primary Care Provider Active Start : July 10, 2024 Reji Pepper MD Emergency Provider Active Star t: July 10, 2024 Dr. Luis Burt , Admit Provider Active Start: July 10, 2024 Dr. Luis Burt , Attending Provider Active Start: July 10, 2024 Console Operator Relationship Specialty Start Date End Date Rylie Gore CNP [address] [place] [address] PCP - General Nurse Practitioner 04/16/22 Rylie Gore CNP [address] [place] [address] Nurse Practitioner 01/15/20 Nina De Jesus MA Executive Producer Promos 10/13/18 Ricky Martell MD [address] [place] [phone] Consulting Physician Neurological Surgery 11/14/20 Ricky Martell MD [address] [place] [phone] Consulting Physician Neurological Surgery 11/30/20 Daniel Steen MD [address] [place] [address] Consulting Physician Addiction Medicine 09/28/22 Console Operator Relationship Specialty Start Date End Date Rylie Gore CNP [address] [place] [address] PCP - General Nurse Practitioner 04/16/22 Rylie Gore CNP [address] [place] [address] Nurse Practitioner 01/15/20 Nina De Jesus MA Executive Producer Promos 10/13/18 Ricky Martell MD [address] [address] Consulting Physician Neurological Surgery 11/14/20 Ricky Martell MD [address] [address] Consulting Physician Neurological Surgery 11/30/20 Daniel Steen MD 770 [facility] [address] [place] [address] Consulting Physician Addiction Medicine 09/28/22 Console Operator Relationship Specialty Start Date End Date Rylie Gore CNP [address] [place] [address] PCP - General Nurse Practitioner 04/16/22 Rylie Gore CNP [address] [place] [address] Nurse Practitioner 01/15/20 Nina De Jesus MA Executive Producer Promos 10/13/18 Ricky Martell MD [address] [address] Consulting Physician Neurological Surgery 11/14/20 Ricky Martell MD [address] [facility] [address] [place] [address] Consulting Physician Neurological Surgery 11/30/20 Daniel Steen MD [address] [facility] [address] [place] [address] Consulting Physician Addiction Medicine 09/28/22 Console Operator Relationship Specialty Start Date End Date Rylie Gore CNP [address]70 [facility] [place] [address] PCP - General Nurse Practitioner 04/16/22 Rylie Gore CNP [address] [place] [address] Nurse Practitioner 01/15/20 Nina De Jesus MA Executive Producer Promos 10/13/18 Ricky Martell MD [address] [address] Consulting Physician Neurological Surgery 11/14/20 Ricky Martell MD [address] [place] [address] Consulting Physician Neurological Surgery 11/30/20 Daniel Steen MD [address] [place] [address] Consulting Physician Addiction Medicine 09/28/22 Console Operator Relationship Specialty Start Date End Date Rylie Gore CNP [address] [place] [address] PCP - General Nurse Practitioner 04/16/22 Rylie Gore, PIPER [address] [place] [address] Nurse Practitioner 01/15/20 Nina De Jesus MA Executive Producer Promos 10/13/18 Ricky Martell MD [address] [place] [address] Consulting Physician Neurological Surgery 11/14/20 Ricky Martell MD [address] [place], [place] [phone] Consulting Physician Neurological Surgery 11/30/20 Daniel Steen MD [address] [place] [address] Consulting Physician Addiction Medicine 09/28/22 Console Operator Relationship Specialty Start Date End Date Rylie Gore CNP 770 [facility] [place] [address] PCP - General Nurse Practitioner 04/16/22 Rylie Gore CNP [address] [place], [place] [phone] Nurse Practitioner 01/15/20 Nina De Jesus MA Executive Producer Promos 10/13/18 Ricky Martell MD [address] [place], [place] [phone] Consulting Physician Neurological Surgery 11/14/20 Ricky Martell MD [address] [place] [address] Consulting Physician Neurological Surgery 11/30/20 Daniel Steen MD [address] [place] [address]15 Consulting Physician Addiction Medicine 09/28/22 Console Operator Relationship Specialty Start Date End Date Rylie Gore CNP [facility] [facility] [place] [address] PCP - General Nurse Practitioner 04/16/22 Rylie Gore CNP [address] [place] [address] Nurse Practitioner 01/15/20 Nina De Jesus MA Executive Producer Promos 10/13/18 Ricky Martell MD [address] [address] Consulting Physician Neurological Surgery 11/14/20 Ricky Martell MD [address] [address] Consulting Physician Neurological Surgery 11/30/20 Daniel Steen MD [address] [place] [address] [place] [address] Consulting Physician Addiction Medicine 09/28/22 Console Operator Relationship Specialty Start Date End Date Rylie Gore CNP [address] [place] [address] [place] [address] PCP - General Nurse Practitioner 04/16/22 Rylie Gore CNP [address] [place] [address] Nurse Practitioner 01/15/20 Nina De Jesus MA Executive Producer Promos 10/13/18 Ricky Martell MD [address] [address] Consulting Physician Neurological Surgery 11/14/20 Ricky Martell MD [address] [facility] [address] [place] [address] Consulting Physician Neurological Surgery 11/30/20 Daniel Steen MD [address] [place] [address] Consulting Physician Addiction Medicine 09/28/22 Console Operator Relationship Specialty Start Date End Date Rylie Gore, PIPER [address] [place] [address] PCP - General Nurse Practitioner 04/16/22 Rylie Gore, PIPER [address] [place] [address] Nurse Practitioner 01/15/20 Nina De Jesus MA Executive Producer Promos 10/13/18 Ricky Martell MD [address] [facility] [address] [place], [place] [phone] Consulting Physician Neurological Surgery 11/14/20 Ricky Martell MD [address] [facility] [address] [place] [address] Consulting Physician Neurological Surgery 11/30/20 Daniel Steen MD [address] [place] [address] Consulting Physician Addiction Medicine 09/28/22 Console Operator Relationship Specialty Start Date End Date Rylie Gore, PIPER [address] [place] [address] PCP - General Nurse Practitioner 04/16/22 Rylie Gore CNP [address] [place] [address] Nurse Practitioner 01/15/20 Nina De Jesus MA Executive Producer Promos 10/13/18 Ricky Martell MD [address] [place] [phone] Consulting Physician Neurological Surgery 11/14/20 Ricky Martell MD [address] [place] [phone] Consulting Physician Neurological Surgery 11/30/20 Daniel Steen MD [address] [place] [address] [place] [address] Consulting Physician Addiction Medicine 09/28/22 Console Operator Relationship Specialty Start Date End Date Rylie Gore CNP [address] [place] [address] [place] [address] PCP - General Nurse Practitioner 04/16/22 Rylie Gore CNP [address] [place] [address] Nurse Practitioner 01/15/20 Nina De Jesus MA Executive Producer Promos 10/13/18 Ricky Martell MD [address] [address] Consulting Physician Neurological Surgery 11/14/20 Ricky Martell MD [address] [address] Consulting Physician Neurological Surgery 11/30/20 Daniel Steen MD [address] [place] [address] Consulting Physician Addiction Medicine 09/28/22 Console Operator Relationship Specialty Start Date End Date Rylie Gore CNP [address] [place] [address] PCP - General Nurse Practitioner 04/16/22 Rylie Gore CNP [address] [place], [place] [phone] Nurse Practitioner 01/15/20 Nina De Jesus MA Executive Producer Promos 10/13/18 Ricky Martell MD [address] [place] [phone] Consulting Physician Neurological Surgery 11/14/20 Ricky Martell MD [address] [address] Consulting Physician Neurological Surgery 11/30/20 Daniel Steen MD [address] [place] [address] Consulting Physician Addiction Medicine 09/28/22 Console Operator Relationship Specialty Start Date End Date Rylie Gore CNP [address] [place] [address] PCP - General Nurse Practitioner 04/16/22 Rylie Gore CNP [address] [place] [address] Nurse Practitioner 01/15/20 Nina De Jesus MA Executive Producer Promos 10/13/18 Ricky Martell MD [address] [place] [address] Consulting Physician Neurological Surgery 11/14/20 Ricky Martell MD [address] VERÓNICA [address] [place] [address] Consulting Physician Neurological Surgery 11/30/20 Daniel Steen MD [address] [place] [address] Consulting Physician Addiction Medicine 09/28/22 Scheduled Active [...] Brenda Reyes RN)1618 (Stopped - Provider: Lizz [place] RN) PRN Medication Order 11/30/2020 12/01/2020 12/02/2020 cyclobenzaprine [...] than 90, Starting on Sat02/20/22 at 1137, PACU (only), Do not give [...] at 2014 2027 (Given - Provider: Elke Leonard RN) multivitamin (THERAGRAN) per tablet 1 tablet 1 [...] on Sat09/27/22 at 1700, For 2 doses 1624 (Given - Provider: Bettina Mobley RN) 0442 (Given - Provider: Drew Lujan RN) PHENobarbital injection 208 mg (COMPLETED)(Linked Group 1) 208 mg (rounded from 205.2 mg = 3 mg/kg 68.4 kg [place] weight), Intramuscular, Every 3 hours, First dose on Sat09/27/22 at 0200, For 2 doses, If volume [...] 273.6 mg = 4 mg/kg 68.4 kg [place] weight), Intramuscular, Once, On Sat09/26/22 at 2300, [...] On Sat09/26/22 at 2300, For 1 dose 2243 (New Bag - Provider: Kylah Cisneros RN)2256 [...] bitter taste. 2047 (Given - Provider: Drew Lujan, JOSSELYN) 0900 (Given - Provider: Juan Mclaughlin RN) Continuous Medication Order 09/26/2022 09/27/2022 09/28/2022 lactated Ringers infusion 75 mL/hr, Intravenous, Continuous, Starting on Sat09/26/22 at 2150 0302 (New Bag - Provider: Katie Tafoya LPN)1152 (New Bag - Provider: Bettina Mobley RN)1316 (Rate/Dose Change - Provider: Bettina Mobley, JOSSELYN)2358 (New Bag - Provider: Drew Lujan RN) [...] 3 times daily PRN, anxiety, Starting on Sat09/27/22 at 1711 1050 (Given - Provider: Juan [...] Propofol. VESICANT 2022 (Given - Provider: Elke Leonard RN) magnesium hydroxide (MOM) 400 mg/5 mL suspension [...] until immediately prior to dose being administered. 2359 (See Alternative - Provider: Drew Lujan RN) [...] 273.6 mg = 4 mg/kg 68.4 kg [place] weight), Intramuscular, Once, On Sat09/26/22 at 2300, [...] 205.2 mg = 3 mg/kg 68.4 kg [place] weight), Intramuscular, Every 3 hours, First dose on Jazzy 09/27/22 at 0200, For 2 doses
If volume [...] Jazzy 09/27/22 at 1700, For 2 doses Followed by [...] BP under 110) 0600 (Hold - Provider: Blanca Cook RN - Reason: Order parameters not met - Comment: sbp [phone] (Given - Provider: Blanca Cook RN) docusate sodium (COLACE) capsule 100 mg 100 mg, Oral, Daily, First dose on Sat10/02/22 at 0900, [] Hold for loose stools. DO NOT CRUSH OR CHEW. 0818 (Given - Provider: Jessica Kohler RN) 0844 (Given - Provider: Blanca Cook, RN) enoxaparin (LOVENOX) syringe 40 mg 40 mg, Subcutaneous, Daily, First dose on Sat10/02/22 at 0900, Administer in abdomen unless otherwise directed by prescriber. Notify physician if patient refuses., Indication: VTE Prophylaxis 08 (Given - Provider: Jessica Kohler RN) 0845 (Given - Provider: Blanca Cook RN) lidocaine patch 1 patch 1 patch, Transdermal, Administer over 12 Hours, Daily, First dose on Sat10/02/22 at 0900, Apply to back for 12 hours, then remove patch for 12 hours. 08 (Patch Applied - Provider: Jessica Kohler RN)2013 (Patch Removed - Provider: Arcelia Diaz RN) 0845 (Patch Applied - Provider: Blanca Cook RN - Comment: back)1800 (Due: Patch Removed - Provider: Discharge Provider, Automatic - Comment: Time automatically adjusted from order being discontinued) nicotine (NICODERM CQ) 21 mg/24 hr 1 patch 1 patch, Transdermal, Administer over 24 Hours, Daily, First dose on Sat10/02/22 at 0900, U/P Listed Hazardous Drug. Waste Must Be Disposed in [employer] Waste Container 0816 (Patch Applied - Provider: Jessica Kohler RN) 0845 (Patch Removed - Provider: Blanca Cook RN)0846 (Patch Applied - Provider: Blanca Cook RN)1800 (Due: Patch Removed - Provider: Discharge Provider, Automatic - Comment: Time automatically adjusted from order being discontinued) pantoprazole (PROTONIX) EC tablet 40 mg 40 mg, Oral, Daily, First dose on Sat10/02/22 at 0900, DO NOT CRUSH OR CHEW. 0820 (Given - Provider: Jessica Kohler RN) 0844 (Given - Provider: Blanca Cook RN) potassium chloride SA (K-DUR,KLOR-CON) CR [...] PLACED TUBE OR TUBE less than 14 Kisw[place]ili. To administer dissolved tablet(s) mix with 4 [...] pt. infusing) 0600 (Canceled Entry - Provider: Blanca Cook, RN)1400 (Given - Provider: Blanca Cook, RN) sodium chloride 0.9 % 1,000 mL with mvi, adult no.4 with vit K 10 mL, thiamine 100 mg, folic acid 1 mg infusion (COMPLETED) 150 mL/hr, Intravenous, Once, On Sat10/02/22 at 0025, For 1 dose 0106 (New Bag - Provider: Danya Anton, JOSSELYN) topiramate (TOPAMAX) tablet 50 mg 50 mg, Oral, Daily, First dose on Sat10/02/22 at 0900, CATEGORY D HAZARDOUS DRUG use safe handling precautions. Use reference link to view PPE guidelines. Minimize crushing/splitting only to situations where clinically necessary. Do Not Crush or Chew if administering orally due to bitter taste. 0817 (Given - Provider: Jessica Kohler RN) 0845 (Given - Provider: Blanca Cook, RN) Continuous Medication Order 10/01/2022 10/02/2022 10/03/2022 dextrose 5 % and sodium chloride 0.45 % infusion 75 mL/hr, Intravenous, Continuous, Starting on Sat10/02/22 at 0315, For 12 days 0524 (New Bag - Provider: Arcelia Diaz RN)0813 (Rate/Dose Verify - Provider: Jessica Kohler RN)0832 (Rate/Dose Verify - Provider: Jessica Kohler, JOSSELYN)1353 (Rate/Dose Verify - Provider: Jessica Kohler, JOSSELYN)1548 (Rate/Dose Verify - Provider: Jessica Kohler, JOSSELYN)1549 (New Bag - Provider: Jessica Kohler RN) 0534 (New Bag - Provider: Arcelia Diaz, JOSSELYN) PRN Medication Order 10/01/2022 10/02/2022 10/03/2022 acetaminophen (TYLENOL) tablet 650 mg 650 mg, Oral, Every 4 hours PRN, headaches, mild pain, fever 100.4 F or greater, Starting on Sat10/02/22 at 0430 0447 (Given - Provider: Arcelia Diaz, JOSSELYN) 0845 (Given - Provider: Blanca Cook, RN) aluminum-magnesium hydroxide-simethicone (MAALOX PLUS) 200-200-20 mg/5 [...] Kohler RN)2103 (See Alternative - Provider: Arcelia Diaz, JOSSELYN) 0524 (See Alternative - Provider: Arcelia Diaz RN)0846 (See Alternative - Provider: Blanca Cook, JOSSELYN)1125 (See Alternative - Provider: Blanca Cook, JOSSELYN)1523 (See Alternative - Provider: Blanca Cook, JOSSELYN) LORazepam (ATIVAN) injection 1-4 mg(Linked Group 2) [...] VESICANT 0137 (See Alternative - Provider: Danya Anton, RN)0518 (See Alternative - Provider: Arcelia Diaz, JOSSELYN)1355 (See Alternative - Provider: Jessica Kohler, RN)2103 (See Alternative - Provider: Arcelia Diaz, JOSSELYN) 0524 (See Alternative - Provider: Arcelia Diaz, JOSSELYN)0846 (See Alternative - Provider: Blanca Cook, JOSSELYN)1125 (See Alternative - Provider: Blanca Cook, JOSSELYN)1523 (See Alternative - Provider: Blanca Cook RN) LORazepam (ATIVAN) tablet 1-4 mg(Linked [...] Arcelia Diaz RN)1355 (Given - Provider: Jessica Kohler RN)2102 (Given - Provider: Arcelia Diaz RN) 05 (Given - Provider: Arcelia Diaz RN - Comment: CIWA of 14)0846 (Given - Provider: Blanca Cook RN)1125 (Given - Provider: Blanca Cook RN)1523 (Given - Provider: Blanca Cook RN) melatonin Tab 5 mg 5 [...] line care, Starting on Sat10/02/22 at 0249 sodium chloride 0.9% (NS)(Linked Group 1) 0-150 [...] Indication: CAP 1340 (New Bag - Provider: Ktaie Low RN)1507 (Stopped - Provider: Katie Low [...] refused) 0832 (Not Given - Provider: Myla Castillo, JOSSELYN - Reason: Patient/family refused) folic acid (FOLVITE) tablet 1 mg 1 mg, Oral, Daily, First dose on Sat03/04/23 at 1500 1618 (Given - Provider: Rosa Faulkner, JOSSELYN) 0831 (Given - Provider: Myla Castillo, JOSSELYN) multivitamin (THERAGRAN) per tablet 1 tablet 1 tablet, Oral, Daily, First dose on Sat03/04/23 at 1500 1500 (Not Given - Provider: Lisa Lopez RN - Reason: Other - Comment: not given prior to coming to unit) 0831 (Given - Provider: Myla Castillo RN) ondansetron (ZOFRAN) injection 4 mg (COMPLETED) 4 mg, Intravenous, Once, On Sat03/04/23 at 0805, For 1 dose 0822 (Given - Provider: Mehreen Kenny, JOSSELYN) pantoprazole (PROTONIX) injection 40 mg (COMPLETED) 40 mg, Intravenous, Once, On Sat03/04/23 at 0805, For 1 dose, Dilute each vial with 10 mL of 0.9% NaCl. 0822 (Given - Provider: Mehreen Kenny RN) sodium chloride (PF) (NS) flush 5 [...] dose 0959 (New Bag - Provider: Mehreen Kenny RN) 1133 (Stopped - Provider: Esperanza Martinez RN) sodium chloride 0.9% (NS) bolus 1,000 mL (COMPLETED) 1,000 mL, Intravenous, at 983.6 mL/hr, Once, On Sat03/04/23 at 0755, For 1 dose 0826 (New Bag - Provider: Mehreen Kenny RN)1352 (Stopped - Provider: Katie Low, JOSSELYN) thiamine tablet 200 mg 200 mg, Oral, Daily, First dose on Sat03/04/23 at 1500, For 5 doses 1618 (Given - Provider: Rosa FaulknerJOSSELYN) 0831 (Given - Provider: Myla Castillo RN) PRN Medication Order 03/03/2023 03/04/2023 03/05/2023 acetaminophen [...] infusion of Benzodiazepines, Dexmedetomidine or Propofol. VESICANT 0872 (Given - Provider: Mehreen Kenny RN - Comment: CIWA 13)8485 (Given - Provider: Katie Low RN) LORazepam [...] VESICANT 1619 (See Alternative - Provider: Rosa Faulkner, JOSSELYN)1815 (See Alternative - Provider: Lisa Lopez, JOSSELYN)2032 (See Alternative - Provider: Lisa Lopez RN)222 (See Alternative - Provider: Lisa Lopez RN) 022 (Canceled Entry - Provider: Liana William, JOSSELYN - Comment: IV route)022 (See Alternative - Provider: Liana William, JOSSELYN)0833 (See Alternative - Provider: Myla Castillo RN) LORazepam (ATIVAN) injection 1-4 mg(Linked Group [...] infusion of Benzodiazepines, Dexmedetomidine or Propofol. VESICANT 1618 (Given - Provider: Rosa Faulkner RN)1814 (Given - Provider: Lisa Lopez RN)2032 (Given - Provider: Lisa Lopez, JOSSELYN)2226 (Given - Provider: Lisa Lopez RN) 223 (See Alternative - Provider: Liana William RN)228 (Given - Provider: Liana William RN)0833 (Given - Provider: Myla Castillo RN) LORazepam [...] (See Alternative - Provider: Lisa Lopez RN) 223 (See Alternative - Provider: Liana William RN)228 (See Alternative - Provider: Liana William RN)0833 (See Alternative - Provider: Myla Castillo [...] mL, Intravenous, Once in imaging, contrast, Per automotive title clerk (Radiology) for line patency check prior to contrast administration, Starting on Sat03/04/23 at 0926, For 1 dose 0930 (Given - Provider: Margoth Robert, TECHNOLOGIST) sodium chloride (PF) (NS) 0.9 % contrast line flush 80 mL (COMPLETED)(Linked Group 5) 80 mL, Intravenous, Once in imaging, contrast, Per automotive title clerk (Radiology), Starting on Sat03/04/23 at 0926, For 1 dose, 30 mL BEFORE contrast administration 50 mL AFTER contrast administration 0929 (Given - Provider: Margoth Robert, TECHNOLOGIST) sodium chloride (PF) (NS) flush 5 [...] for KVO. 1011 (Stopped - Provider: Myla Castillo, RN) sodium chloride 0.9% (NS)(Linked Group 1) 0-150 mL/hr, Intravenous, As needed, To flush line after IV infusions when no maintenance IV ordered or a compatibility issue. Infuse 20ml at the same rate as the secondary infusion, Starting on Sat03/04/23 at 1337, Run as Primary IV. NOT intended for KVO. 1011 (Stopped - Provider: Mlya Castillo RN) traZODone (DESYREL) tablet 50 mg [...] mL, Intravenous, Once in imaging, contrast, Per automotive title clerk (Radiology) for line patency check prior to contrast administration, Starting on Sat03/04/23 at 0926, For 1 dose And sodium chloride (PF) (NS) 0.9 % contrast line flush 80 mL (COMPLETED)Jump to med 80 mL, Intravenous, Once in imaging, contrast, Per automotive title clerk (Radiology), Starting on Sat03/04/23 at 0926, For 1 dose
30 mL BEFORE contrast administration 50 mL AFTER contrast administration
Group 6: Insert peripheral IV (COMPLETED) GLADYS, Once, On Sat03/04/23 at 0754, For 1 occurrence And Saline lock IV (CANCELED) GLADYS, Once, On Sat03/04/23 at 0754, For 1 [...] 20 mg, Intramuscular, ONCE, 1 dose, On 04/21/23 at 1430 1408 (Given - Provid er: Zee Cordero RN) Scheduled Medication Order 11/08/2024 11/09/2024 [...] PROCEDURE): Neurology 1433 (Given - Provider: MATT rBown) 1400 (Stopped - Provider: Fabiana Joseph RN) ceFAZolin (ANCEF) IVPB 2 g (premix) (COMPLETED) 2,000 mg, Intravenous, at 100 mL/hr, Every 8 hours, First dose on Sat11/09/24 at 2200, For 2 doses, Starting 8 hours after pre-procedure dose x 2 doses., Indication (POST PROCEDURE): Neurology 2116 (New Bag - Provider: Arcelia Diaz RN) 0501 (New Bag - Provider: Arcelia Diaz RN)1437 (Stopped - Provider: Fabiana Joseph, JOSSELYN) cyclobenzaprine (FLEXERIL) tablet 10 mg 10 mg, Oral, Every 8 hours scheduled, First dose on Sat11/09/24 at 1930 1942 (Given - Provider: Arcelia Diaz RN) 0501 (Given - Provider: Arcelia Diaz, JOSSELYN)1223 (Given - Provider: Fabiana Joseph, JOSSELYN)1400 (Canceled [...] MATT Brown) 1536 (Stopped - Provider: Fabiana Joseph, JOSSELYN) sodium chloride 0.9% (NS) (CANCELED) 75 mL/hr, Intravenous, Continuous, Starting on Sat11/09/24 at 1900 1822 (New Bag - Provider: Jt Guerrero, RN) 1536 (Stopped - Provider: Fabiana Joseph, JOSSELYN) PRN Medication Order 11/08/2024 11/09/2024 11/10/2024 acetaminophen (TYLENOL) tablet 650 mg 650 mg, Oral, Every 4 hours PRN, mild pain, fever 100.4 F or greater, Starting on Sat11/09/24 at 1802 bisacodyL (DULCOLAX) suppository 10 mg 10 mg, Rectal, Daily PRN, constipation, Starting on Sat11/09/24 at 1802, Try oral meds first. [place] rectal route for when oral meds are [...] in PACU. 1702 (Given - Provider: Rosa Faulkner, JOSSELYN)1708 (Given - Provider: Rosa Faulkner, JOSSELYN) HYDROmorphone (DILAUDID) injection 0.25-0.5 mg 0.25-0.5 mg, [...] or if unable to tolerate oral route. 2038 (Given - Provider: Arcelia Diaz, JOSSELYN)2112 (Given - Provider: Arcelia Diaz RN - Comment: 30 minute pain reassessment. will get 0.5mg after this dose.) 0055 (Given - Provider: Arcelia Diaz RN)040 (Given - Provider: Arcelia Diaz RN)0937 (Given [...] Guerrero RN) 0132 (Given - Provider: Arcelia Diaz, JOSSELYN)0641 (Given - Provider: Arcelia Diaz, JOSSELYN)1126 (Given - Provider: Fabiana Joseph RN) sodium chloride (NS) 0.9 % irrigation [...] BE BASED ON THE PRIMARY CLINICAL RECORDS. [facility]. provides no warranty or guarantee of the accuracy or completeness of information in this document.
[2025-02-06] MEDS: hydrOXYzine PAM 25 MG Capsule 50 MG PO (18:37)
[2025-02-07] MEDS: hydrOXYzine PAM 25 MG Capsule 50 MG PO ×2 (04:12→23:15)
[2025-02-07 04:53] LABS: Hematocrit 40.9 % (40-54); Hemoglobin 14.3 g/dL (13.0-16.5); Immature Granulocytes Count 0.010 X10^3/uL (0.0-0.0); Mean Corp Hgb Conc 35.0 g/dL (32-36); Mean Corpuscular Volume 91.5 fL (80-94); Mean Platelet Vol. 10.3 fl (6.2-12.0); NRBC Flagged by Analyzer 0 % (0-5); POSITIVE COUNT YES; Platelet Count 81 K/mm3 (150-450); RBC Distribution Width CV 14.1 % (11.6-14.6); RBC Distribution Width SD 48.3 fl (35.1-43.9); Red Blood Count 4.47 M/mm3 (4.6-6.2); White Blood Count 4.6 K/mm3 (4.4-11.0)
[2025-02-07 04:57] VITALS: BP 126/71; PULSE 82; RESP 16; TEMP 36.5; O2SAT 94
[2025-02-07 05:05] LABS: Differential Indicated SCAN CRITERIA MET
[2025-02-07 05:14] LABS: AST(SGOT) 122 U/L (<=37); Alanine Aminotransfer ALT/SGPT 82 U/L (<=46); Albumin, Serum 4.4 g/dL (3.5-5.0); Alkaline Phosphatase 72 U/L (40-129); Anion Gap 14 (5-15); BUN 5 mg/dL (4-19); BUN/Creat Ratio 6.1 RATIO (10-20); Calcium,Total 9.2 mg/dL (7.6-11.0); Carbon Dioxide 25.4 mmol/L (21.0-32.0); Chloride 98 mmol/L (98-108); Estimated Creatinine Clearance 94.43 ml/min (50-250); Globulin 2.7 g/dL (2.2-4.2); Glucose 112 mg/dL (70-99); Potassium 3.6 mmol/L (3.3-5.1)
[2025-02-07 07:58] VITALS: BP 117/91; PULSE 72; RESP 16; TEMP 36.9; O2SAT 93
[2025-02-07] MEDS: Thiamine Hydrochloride 100 MG Tablet PO (07:59)
[2025-02-07 11:44] VITALS: BP 129/91; PULSE 82; RESP 16; TEMP 36.9; O2SAT 97
[2025-02-07] MEDS: Nicotine (PBKC) 14 MG Patch TD (11:47)
--- NOTE | 2025-02-07 12:33 | PN.HOSP_ITS ---
Reason for Visit Chief Complaint: Requesting alcohol detox Subjective Subjective Reports he feels a little shaky and a little stomach upset but feels little better than yesterday, feels like the medicines are working Objective Data Objective Data Vital Signs: Vital Signs Temp Pulse Resp BP Pulse Ox O2 Del Method 98.4 F 82 16 129/91 H 97 Room Air 02/07/25 11:44 02/07/25 11:44 02/07/25 11:44 02/07/25 11:44 02/07/25 11:44 02/07/25 11:44 Oxygen Delivery Method Room Air Weight: 62.142 kg Body Mass Index (BMI) 20.8 Intake & Output: Intake and Output for Last 24 Hours 02/05/25 02/06/25 02/07/25 23:59 23:59 23:59 Intake Total 800 / 800 Balance 800 / 800 Lab / Micro Data 02/07/25 04:23 02/07/25 04:23 Labs: Laboratory Results - last 24 hr 02/07/25 04:23: WBC 4.6, RBC 4.47 L, Hgb 14.3, Hct 40.9, MCV 91.5, MCH 32.0, MCHC 35.0, RDW Std Deviation 48.3 H, RDW Coeff of Rohit 14.1, Plt Count 81 L, MPV 10.3, Immature Gran % (Auto) 0.200, Neut % (Auto) 69.0, Lymph % (Auto) 19.4, M marlen % (Auto) 10.1 H, Eos % (Auto) 0.9, Baso % (Auto) 0.4, Absolute Neuts (auto) 3.2, Absolute Lymphs (auto) 0.90, Nucleated RBC % 0, Platelet Estimate MOD DEC, Sodium 137, Potassium 3.6, Chloride 98, Carbon Dioxide 25.4, Anion Gap 14, BUN 5, Creatinine 0.85, Estim Creat Clear Calc 94.43, Est GFR (MDRD) Non-Af 108, B UN/Creatinine Ratio 6.1 L, Glucose 112 H, Calcium 9.2, Total Bilirubin 0.89, AST 122 H, ALT 82 H, Alkaline Phosphatase 72, Total Protein 7.2, Albumin 4.4, Globulin 2.7, Albumin/Globulin Ratio 1.6 Physical Exam Narrative General: Alert, no apparent distress HEENT: Atraumatic, normocephalic Eyes: extraocular movements grossly intact Neck: Supple Respiratory: normal respiratory effort Cardiovascular: no edema appreciated GI: nondistended Extremities: Moving all extremities Neuro: No overt focal neurological deficits Psych: Cooperative Assessment & Plan Assessment/Plan (1) Chronic alcohol abuse: (2) Alcohol dependence with withdrawal: PLAN: Plan #Alcohol use disorder - We will begin CIWA every 4 for 24 hours, then every 6 for 24 hours, then every 12 until discharge -Will begin phenobarbital taper -Gabapentin 300 mg every 8 as needed -Will start Bentyl and hydroxyzine as needed as well as loperamide as needed -Trazodone 100 mg p.o. nightly as needed sleep -Begin thiamine and folic acid supplementation -Zofran as needed for nausea -Case management consult to assist with discharge planning -EtOH 333 -UDS positive for cannabinoids -02/07: Seems that patient yesterday was clinically intoxicated during evaluation, today very calm and cooperative, said he thinks he will be leaving tomorrow as that is when his mom can get him, discussed that he is still at the beginning of his taper and that we can evaluate tomorrow but if he decides to leave it may end up needing to be AMA, he verbalizes understanding #Tobacco use -02/07: Nicotine patch ordered #Abn LFTs -02/07: AST 122 and ALT 82, down from 168 and 98 yesterday respectively, suspect this is due to alcohol, platelet count 81, yesterday 107 but appears all cell lines dropped proportionately, this is likely also due to chronic alcohol use, would recommend establishing with primary care physician if he has not already have one #DVT ppx: Low risk, ambulatory Latasha Nye MD Charges/Coding Visit Charges Inpatient E&M: 50382 Subs Hosp L1
--- NOTE | 2025-02-07 13:14 | ADDICTION ---
Met with patient to complete RAMP assessments. Patient reports drinking "at least a case of beer every day" . Last use occurred in the parking lot of the hospital. Patient denies any intravenous drug use. Pt reports he is leaving tomorow even if it has to be against medical advice (AMA). Patient appeared groggy but was able to respond appropriately to assessment questions. Patient states intention to follow up with AA/NA meetings but is currently resistant to formal treatment recommendations. Will revisit treatment options and discuss addiction-related behaviors during tomorrow’s session if patient is still here.
[2025-02-07 15:19] VITALS: BP 123/99; PULSE 68; RESP 16; TEMP 36.6; O2SAT 97
[2025-02-07 20:59] VITALS: BP 131/91; PULSE 78; RESP 16; TEMP 37.1; O2SAT 96
[2025-02-07 23:10] VITALS: BP 124/96; PULSE 88; RESP 16; TEMP 36.6; O2SAT 97
[2025-02-08] VITALS (27 sets, daily range): BP systolic 97–152; BP diastolic 80–103; PULSE 56–123; RESP 16–22; TEMP 35.8–37; O2SAT 95–100
[2025-02-08] MEDS: hydrOXYzine PAM 25 MG Capsule 50 MG PO (06:30)
--- NOTE | 2025-02-08 06:45 | PCM.HOSP.N ---
Hospitalist Note Patient has been becoming increasingly escalated at night. Had a fall with no injury. Pt walking around the halls yelling and screaming. Alma hansen was called. Pt became very combative despite attempts to deescalate. Patient admitted for EtOH detox. Drinks 12-16 beers daily for 30 yrs. Security at bedside and pt placed in 4 pt restraints. Ativain IVP x 2 mg ordered now. Transfer to ICU bed 5. Pt to be reevaluted for need of restraints in 1 hr.
[2025-02-08] MEDS: 0.9% Saline Lock 10 ML Syringe IV (06:47)
[2025-02-08] MEDS: dexMEDEtomidine 400 MCG in 0.9% Normal Saline (100mL Bag) 96 ML 7.8 MCG CONT INF ×2 (07:10→19:39)
--- NOTE | 2025-02-08 07:23 | PCM.PN.HOSP ---
Reason for Visit Chief Complaint: Requesting alcohol detox Objective Data Objective Data Vital Signs: Vital Signs Temp Pulse Resp BP Pulse Ox O2 Del Method 98.0 F 96 20 H 121/80 H 96 Room Air 02/08/25 06:55 02/08/25 06:55 02/08/25 06:55 02/08/25 06:55 02/08/25 06:55 02/08/25 06:55 Oxygen Delivery Method Room Air Weight: 62.142 kg Body Mass Index (BMI) 20.8 Intake & Output: Intake and Output for Last 24 Hours 02/06/25 02/07/25 02/08/25 23:59 23:59 23:59 Intake Total 800 / 800 Balance 800 / 800 Lab / Micro Data 02/07/25 04:23 02/07/25 04:23 Labs: Laboratory Results - last 24 hr 02/08/25 05:35: POC Glucose 123 H Physical Exam Narrative General: Alert, no apparent distress HEENT: Atraumatic, normocephalic Eyes: extraocular movements grossly intact Neck: Supple Respiratory: normal respiratory effort Cardiovascular: no edema appreciated GI: nondistended Extremities: Moving all extremities Neuro: No overt focal neurological deficits Psych: Cooperative Assessment & Plan Assessment/Plan (1) Chronic alcohol abuse: (2) Alcohol dependence with withdrawal: PLAN: Plan #Alcohol use disorder - We will begin CIWA every 4 for 24 hours, then every 6 for 24 hours, then every 12 until discharge -Will begin phenobarbital taper -Gabapentin 300 mg every 8 as needed -Will start Bentyl and hydroxyzine as needed as well as loperamide as needed -Trazodone 100 mg p.o. nightly as needed sleep -Begin thiamine and folic acid supplementation -Zofran as needed for nausea -Case management consult to assist with discharge planning -EtOH 333 -UDS positive for cannabinoids -02/07: Seems that patient yesterday was clinically intoxicated during evaluation, today very calm and cooperative, said he thinks he will be leaving tomorrow as that is when his mom can get him, discussed that he is still at the beginning of his taper and that we can evaluate tomorrow but if he decides to leave it may end up needing to be AMA, he verbalizes understanding #Tobacco use -02/07: Nicotine patch ordered #Abn LFTs -02/07: AST 122 and ALT 82, down from 168 and 98 yesterday respectively, suspect this is due to alcohol, platelet count 81, yesterday 107 but appears all cell lines dropped proportionately, this is likely also due to chronic alcohol use, would recommend establishing with primary care physician if he has not already have one #DVT ppx: Low risk, ambulatory Latasha Nye MD
--- NOTE | 2025-02-08 08:12 | PCM.PN.HOSP ---
Subjective Subjective Agitated overnight had to be placed in 4-point locked restraints. This was reaffirmed this morning per guidelines Objective Data Objective Data Vital Signs: Vital Signs Temp Pulse Resp BP Pulse Ox O2 Del Method 98.0 F 96 20 H 121/80 H 96 Room Air 02/08/25 06:55 02/08/25 06:55 02/08/25 06:55 02/08/25 06:55 02/08/25 06:55 02/08/25 06:55 Oxygen Delivery Method Room Air Weight: 137 lb Body Mass Index (BMI) 20.8 Intake & Output: Intake and Output for Last 24 Hours 02/07/25 02/08/25 02/09/25 03:59 03:59 03:59 Intake Total 800 / 800 Balance 800 / 800 Lab / Micro Data 02/07/25 04:23 02/07/25 04:23 Labs: Laboratory Results - last 24 hr 02/08/25 05:35: POC Glucose 123 H Physical Exam Narrative General: Alert, disoriented, agitated and combative HEENT: Atraumatic, PERRLA, EOMI, Normocephalic Oral: Moist Mucosa Neck: Supple, No JVD Lungs: Diminished, Normal air movement, No rhonchi, No wheeze, No rales Cardiovascular: Regular rate, Regular Rhythm, Normal S1, Normal S2, No murmurs Abdomen: Soft, Non Tender, Non-Distended, No Hepato-splenomegaly Extremities: No edema, Capillary Refill Less than 3 Seconds Skin: No rashes, No breakdown Musculoskeletal: No Tenderness to Palpation of Joints or Extremities Neurological: No focal neurological deficits, moves all extremities Psych/Mental Status: Agitated and combative Assessment & Plan Assessment/Plan (1) Acute alcohol intoxication: (2) Admitted to substance misuse detoxification center: PLAN: Plan #Alcohol use disorder - We will begin CIWA every 4 for 24 hours, then every 6 for 24 hours, then every 12 until discharge -Will begin phenobarbital taper -Gabapentin 300 mg every 8 as needed -Will start Bentyl and hydroxyzine as needed as well as loperamide as needed -Trazodone 100 mg p.o. nightly as needed sleep -Begin thiamine and folic acid supplementation -Zofran as needed for nausea -Case management consult to assist with discharge planning -EtOH 333 -UDS positive for cannabinoids -02/07: Seems that patient yesterday was clinically intoxicated during evaluation, today very calm and cooperative, said he thinks he will be leaving tomorrow as that is when his mom can get him, discussed that he is still at the beginning of his taper and that we can evaluate tomorrow but if he decides to leave it may end up needing to be AMA, he verbalizes understanding 02/08/2025: Became agitated overnight and was placed in 4-point restraints of this morning which were reaffirmed. Started on Precedex and transferred to the ICU. Will start him on scheduled Librium as well #Tobacco use -02/07: Nicotine patch ordered #Abn LFTs -02/07: AST 122 and ALT 82, down from 168 and 98 yesterday respectively, suspect this is due to alcohol, platelet count 81, yesterday 107 but appears all cell lines dropped proportionately, this is likely also due to chronic alcohol use, would recommend establishing with primary care physician if he has not already have one DVT: Ambulation Charges/Coding Visit Charges Inpatient E&M: 75022 Subs Hosp L2
[2025-02-08] MEDS: Nicotine (PBKC) 14 MG Patch TD (10:41)
[2025-02-08] MEDS: dexMEDEtomidine 400 MCG in 0.9% Normal Saline (100mL Bag) 96 ML 21.8 MCG CONT INF (11:24)
[2025-02-09] VITALS (25 sets, daily range): BP systolic 93–152; BP diastolic 64–102; PULSE 48–90; RESP 12–19; TEMP 36–36.6; O2SAT 94–98; BMI 20.7
[2025-02-09] MEDS: dexMEDEtomidine 400 MCG in 0.9% Normal Saline (100mL Bag) 96 ML 10.9 MCG CONT INF (06:41)
--- NOTE | 2025-02-09 07:56 | NURSING ---
Pt up out of bed, pulled out [place] w/ balloon intact.
--- NOTE | 2025-02-09 08:10 | PCM.PN.HOSP ---
Subjective Subjective Currently on Precedex and will continue scheduled Librium Objective Data Objective Data Vital Signs: Vital Signs Temp Pulse Resp BP Pulse Ox O2 Del Method 97.7 F L 57 L 17 118/86 H 97 Room Air 02/09/25 04:00 02/09/25 06:00 02/09/25 06:00 02/09/25 06:00 02/09/25 06:00 02/09/25 06:00 Oxygen Delivery Method Room Air Weight: 136 lb 15.571 oz Body Mass Index (BMI) 20.7 Intake & Output: Intake and Output for Last 24 Hours 02/08/25 02/09/25 02/10/25 03:59 03:59 03:59 Intake Total 254.52 / 257.25 31.99 / 31.99 Output Total 1220 / 1220 150 / 150 Balance -965.48 / -962.75 -118.01 / -118.01 Lab / Micro Data 02/07/25 04:23 02/07/25 04:23 Physical Exam Narrative General: Alert, disoriented, agitated and combative on soft restraints HEENT: Atraumatic, PERRLA, EOMI, Normocephalic Oral: Moist Mucosa Neck: Supple, No JVD Lungs: Diminished, Normal air movement, No rhonchi, No wheeze, No rales Cardiovascular: Regular rate, Regular Rhythm, Normal S1, Normal S2, No murmurs Abdomen: Soft, Non Tender, Non-Distended, No Hepato-splenomegaly Extremities: No edema, Capillary Refill Less than 3 Seconds Skin: No rashes, No breakdown Musculoskeletal: No Tenderness to Palpation of Joints or Extremities Neurological: No focal neurological deficits, moves all extremities Psych/Mental Status: Agitated and combative Assessment & Plan Assessment/Plan (1) Acute alcohol intoxication: (2) Admitted to substance misuse detoxification center: PLAN: Plan #Alcohol use disorder - We will begin CIWA every 4 for 24 hours, then every 6 for 24 hours, then every 12 until discharge -Will begin phenobarbital taper -Gabapentin 300 mg every 8 as needed -Will start Bentyl and hydroxyzine as needed as well as loperamide as needed -Trazodone 100 mg p.o. nightly as needed sleep -Begin thiamine and folic acid supplementation -Zofran as needed for nausea -Case management consult to assist with discharge planning -EtOH 333 -UDS positive for cannabinoids -02/07: Seems that patient yesterday was clinically intoxicated during evaluation, today very calm and cooperative, said he thinks he will be leaving tomorrow as that is when his mom can get him, discussed that he is still at the beginning of his taper and that we can evaluate tomorrow but if he decides to leave it may end up needing to be AMA, he verbalizes understanding 02/08/2025: Became agitated overnight and was placed in 4-point restraints of this morning which were reaffirmed. Started on Precedex and transferred to the ICU. Will start him on scheduled Librium as well 02/09/2025: Continue with Precedex and Librium as well as a phenobarb taper #Tobacco use -02/07: Nicotine patch ordered #Abn LFTs -02/07: AST 122 and ALT 82, down from 168 and 98 yesterday respectively, suspect this is due to alcohol, platelet count 81, yesterday 107 but appears all cell lines dropped proportionately, this is likely also due to chronic alcohol use, would recommend establishing with primary care physician if he has not already have one #Urinary retention – Had about 1000 cc in his bladder yesterday – Yang placed DVT: Ambulation Charges/Coding Visit Charges Inpatient E&M: 74026 Subs Hosp L2
[2025-02-09] MEDS: hydrOXYzine PAM 25 MG Capsule 50 MG PO ×2 (08:18→17:20)
[2025-02-09] MEDS: Thiamine Hydrochloride 100 MG Tablet PO (08:18)
[2025-02-09] MEDS: Nicotine (PBKC) 14 MG Patch TD (08:19)
[2025-02-09] MEDS: dexMEDEtomidine 400 MCG in 0.9% Normal Saline (100mL Bag) 96 ML 18.6 MCG CONT INF (12:51)
[2025-02-09] MEDS: dexMEDEtomidine 400 MCG in 0.9% Normal Saline (100mL Bag) 96 ML 14 MCG CONT INF (18:22)
[2025-02-10] VITALS (26 sets, daily range): BP systolic 97–151; BP diastolic 64–99; PULSE 46–116; RESP 12–118; TEMP 36.4–37.2; O2SAT 94–100; BMI 21.2
[2025-02-10] MEDS: dexMEDEtomidine 400 MCG in 0.9% Normal Saline (100mL Bag) 96 ML 15.5 MCG CONT INF (01:00)
[2025-02-10] MEDS: dexMEDEtomidine 400 MCG in 0.9% Normal Saline (100mL Bag) 96 ML 15.9 MCG CONT INF (07:09)
--- NOTE | 2025-02-10 08:32 | PCM.PN.HOSP ---
Subjective Subjective He had ripped out his Yang yesterday morning after rounds, has not ripped out this Yang yet Objective Data Objective Data Vital Signs: Vital Signs Temp Pulse Resp BP Pulse Ox O2 Del Method 97.9 F 51 L 14 122/71 H 96 Room Air 02/09/25 15:00 02/10/25 07:00 02/10/25 07:00 02/10/25 07:00 02/10/25 07:00 02/10/25 07:00 Oxygen Delivery Method Room Air Weight: 139 lb 15.896 oz Body Mass Index (BMI) 21.2 Intake & Output: Intake and Output for Last 24 Hours 02/09/25 02/10/25 02/11/25 03:59 03:59 03:59 Intake Total 254.52 / 257.25 2083.40 / 2098.90 65.19 / 65.19 Output Total 1220 / 1220 2500 / 2500 1100 / 1100 Balance -965.48 / -962.75 -416.60 / -401.10 -1034.81 / -1034.81 Lab / Micro Data 02/07/25 04:23 02/07/25 04:23 Physical Exam Narrative General: Alert, disoriented HEENT: Atraumatic, PERRLA, EOMI, Normocephalic Oral: Moist Mucosa Neck: Supple, No JVD Lungs: Diminished, Normal air movement, No rhonchi, No wheeze, No rales Cardiovascular: Regular rate, Regular Rhythm, Normal S1, Normal S2, No murmurs Abdomen: Soft, Non Tender, Non-Distended, No Hepato-splenomegaly Extremities: No edema, Capillary Refill Less than 3 Seconds Skin: No rashes, No breakdown Musculoskeletal: No Tenderness to Palpation of Joints or Extremities Neurological: No focal neurological deficits, moves all extremities Psych/Mental Status: Restless Assessment & Plan Assessment/Plan (1) Acute alcohol intoxication: (2) Admitted to substance misuse detoxification center: PLAN: Plan #Alcohol use disorder - We will begin CIWA every 4 for 24 hours, then every 6 for 24 hours, then every 12 until discharge -Will begin phenobarbital taper -Gabapentin 300 mg every 8 as needed -Will start Bentyl and hydroxyzine as needed as well as loperamide as needed -Trazodone 100 mg p.o. nightly as needed sleep -Begin thiamine and folic acid supplementation -Zofran as needed for nausea -Case management consult to assist with discharge planning -EtOH 333 -UDS positive for cannabinoids -02/07: Seems that patient yesterday was clinically intoxicated during evaluation, today very calm and cooperative, said he thinks he will be leaving tomorrow as that is when his mom can get him, discussed that he is still at the beginning of his taper and that we can evaluate tomorrow but if he decides to leave it may end up needing to be AMA, he verbalizes understanding 02/08/2025: Became agitated overnight and was placed in 4-point restraints of this morning which were reaffirmed. Started on Precedex and transferred to the ICU. Will start him on scheduled Librium as well 02/09/2025: Continue with Precedex and Librium as well as a phenobarb taper 02/10/2025: Wean Precedex continue with Librium, he completes phenobarbital afternoon #Tobacco use -02/07: Nicotine patch ordered #Abn LFTs -02/07: AST 122 and ALT 82, down from 168 and 98 yesterday respectively, suspect this is due to alcohol, platelet count 81, yesterday 107 but appears all cell lines dropped proportionately, this is likely also due to chronic alcohol use, would recommend establishing with primary care physician if he has not already have one #Urinary retention – Had about 1000 cc in his bladder – Yang placed, can be removed once he is more compliant – Continue with Flomax DVT: Ambulation Charges/Coding Visit Charges Inpatient E&M: 85165 Subs Hosp L2
[2025-02-10] MEDS: Nicotine (PBKC) 14 MG Patch TD (08:33)
[2025-02-10] MEDS: Thiamine Hydrochloride 100 MG Tablet PO (08:33)
[2025-02-10] MEDS: hydrOXYzine PAM 25 MG Capsule 50 MG PO ×3 (09:58→23:57)
--- NOTE | 2025-02-10 12:35 | NURSING ---
pt refused am temp
--- NOTE | 2025-02-10 19:40 | NURSING ---
CIWA performed prior to administering ativan. Pt scored 12, protocol on the order calls for 2mg of po ativan to be given. Attempted to document that two was to be given and mar message stated it was above the ordered amount. Only 1mg of ativan given.
[2025-02-11] VITALS (10 sets, daily range): BP systolic 94–127; BP diastolic 57–90; PULSE 47–97; RESP 13–18; TEMP 36.6–36.7; O2SAT 95–100; BMI 20.9
[2025-02-11] MEDS: Thiamine Hydrochloride 100 MG Tablet PO (08:38)
[2025-02-11] MEDS: Nicotine (PBKC) 14 MG Patch TD ×2 (08:38→15:26)
--- NOTE | 2025-02-11 09:21 | PCM.PN.HOSP ---
Subjective Subjective Off Precedex for approximately 24 hours, currently only on Librium as he completed his phenobarb taper Objective Data Objective Data Vital Signs: Vital Signs Temp Pulse Resp BP Pulse Ox O2 Del Method 97.8 F 97 17 94/57 L 99 Room Air 02/11/25 08:00 02/11/25 08:00 02/11/25 08:00 02/11/25 08:00 02/11/25 08:00 02/11/25 08:50 Oxygen Delivery Method Room Air Weight: 137 lb 12.623 oz Body Mass Index (BMI) 20.9 Intake & Output: Intake and Output for Last 24 Hours 02/10/25 02/11/25 02/12/25 03:59 03:59 03:59 Intake Total 2083.40 / 2098.90 2630.51 / 2630.51 600 / 600 Output Total 2500 / 2500 6925 / 7475 1650 / 1650 Balance -416.60 / -401.10 -4294.49 / -4844.49 -1050 / -1050 Lab / Micro Data 02/07/25 04:23 02/07/25 04:23 Physical Exam Narrative General: Alert, oriented x 3, cooperative HEENT: Atraumatic, PERRLA, EOMI, Normocephalic Oral: Moist Mucosa Neck: Supple, No JVD Lungs: Diminished, Normal air movement, No rhonchi, No wheeze, No rales Cardiovascular: Regular rate, Regular Rhythm, Normal S1, Normal S2, No murmurs Abdomen: Soft, Non Tender, Non-Distended, No Hepato-splenomegaly Extremities: No edema, Capillary Refill Less than 3 Seconds Skin: No rashes, No breakdown Musculoskeletal: No Tenderness to Palpation of Joints or Extremities Neurological: No focal neurological deficits, moves all extremities Psych/Mental Status: Flat Assessment & Plan Assessment/Plan (1) Acute alcohol intoxication: (2) Admitted to substance misuse detoxification center: PLAN: Plan #Alcohol use disorder - We will begin CIWA every 4 for 24 hours, then every 6 for 24 hours, then every 12 until discharge -Will begin phenobarbital taper -Gabapentin 300 mg every 8 as needed -Will start Bentyl and hydroxyzine as needed as well as loperamide as needed -Trazodone 100 mg p.o. nightly as needed sleep -Begin thiamine and folic acid supplementation -Zofran as needed for nausea -Case management consult to assist with discharge planning -EtOH 333 -UDS positive for cannabinoids -02/07: Seems that patient yesterday was clinically intoxicated during evaluation, today very calm and cooperative, said he thinks he will be leaving tomorrow as that is when his mom can get him, discussed that he is still at the beginning of his taper and that we can evaluate tomorrow but if he decides to leave it may end up needing to be AMA, he verbalizes understanding 02/08/2025: Became agitated overnight and was placed in 4-point restraints of this morning which were reaffirmed. Started on Precedex and transferred to the ICU. Will start him on scheduled Librium as well 02/09/2025: Continue with Precedex and Librium as well as a phenobarb taper 02/10/2025: Wean Precedex continue with Librium, he completes phenobarbital afternoon 02/11/2025: He has been off of Precedex for 24 hours currently on Librium 3 times daily. Can transfer out of the ICU #Tobacco use -02/07: Nicotine patch ordered #Abn LFTs -02/07: AST 122 and ALT 82, down from 168 and 98 yesterday respectively, suspect this is due to alcohol, platelet count 81, yesterday 107 but appears all cell lines dropped proportionately, this is likely also due to chronic alcohol use, would recommend establishing with primary care physician if he has not already have one #Urinary retention – Had about 1000 cc in his bladder – Yang placed was placed for urinary retention while he was delirious, can remove today and attempt voiding trials – Continue with Flomax DVT: Ambulation Charges/Coding Visit Charges Inpatient E&M: 50176 Subs Hosp L2
--- NOTE | 2025-02-11 16:25 | DCINST_ITS ---
Discharge Instructions DC O2, CPAP, BIPAP needs Home O2 Discharge instructions: No Dressing / Incision Discharge Activity: Return to Normal Activity Dressing / Incision Call your doctor if you observe: Fever of 101 or Higher, Shortness of breath, Dizziness, Fainting spells, Swelling in the ankles, Chest pain and Increased palpitations (irregular heartbeat) Follow Up Care Test Results: Test results from this visit will be discussed in further detail at your follow- up appointment, if applicable. Discharge Plan Admission Admit Date/Time: 02/06/25 10:16 Attending Provider: Sean East Primary Care Provider: RYLIE WATTERS Consulting Providers: Latasha Nye; Sean East; Yariel Beck Discharge Orders/Prescriptions Prescriptions: New tamsulosin 0.4 mg Capsule 0.4 mg PO DAILY@1730 10 Days Qty: 10 0RF Referrals / Follow Up: RYLIE WATTERS [Other] RYLIE WATTERS [Other] Disposition Disposition (needs filled in before D/C Order can be placed): Home, Self Care
--- NOTE | 2025-02-12 10:59 | PCM.DC.SUM ---
Providers Date of Admission: 02/06/25 Date of Discharge: 02/11/25 Primary Care Physician: RYLIE WATTERS Reason For Visit: ETOH DETOX Diagnosis Discharge Diagnosis (1) Acute alcohol intoxication: Status: Acute Code(s): F10.929 - Alcohol use, unspecified with intoxication, unspecified (2) Admitted to substance misuse detoxification center: Status: Acute Code(s): Z78.9 - Other specified health status Medications at Discharge Home Medications tamsulosin 0.4 mg capsule 0.4 mg PO DAILY@1730 10 days #10 caps 02/11/25 Hospital Course Operations None Procedures None Summary of Care Provided Minutes Spent on Discharge: 36 Hospital Course: Per HPI: OG HERNANDEZ, is a 49 M with a history of alcohol use disorder and chronic pain in right foot who presented [facility] ED 02/06/2025 requesting alcohol detox. In the ED temp 98, heart rate 100, respiratory rate 18 and blood pressure 149/105, pulse ox 99% on room air. Labs with a hemoglobin of 15.6, white count 5.1, platelet count 107, BUN of 4 and a creatinine 0.79, glucose 127, AST 168 and ALT of 98. Alcohol 333 and UDS positive for cannabinoids. Hospitalist contacted for admission. Patient accepted for admission and evaluated at bedside. Patient reports drinking upwards of 15-18 beers a day and will wake up at 3 AM to drink, drink right up until he came to the hospital. When he was being evaluated at bedside he reported he was not having any symptoms of withdrawal yet but knew that they were about to come, his only complaint was some chronic nerve damage problems in his right foot which is not new. No other new or acute complaints Hospital Course: #Alcohol use disorder - We will begin CIWA every 4 for 24 hours, then every 6 for 24 hours, then every 12 until discharge -Will begin phenobarbital taper -Gabapentin 300 mg every 8 as needed -Will start Bentyl and hydroxyzine as needed as well as loperamide as needed -Trazodone 100 mg p.o. nightly as needed sleep -Begin thiamine and folic acid supplementation -Zofran as needed for nausea -Case management consult to assist with discharge planning -EtOH 333 -UDS positive for cannabinoids -02/07: Seems that patient yesterday was clinically intoxicated during evaluation, today very calm and cooperative, said he thinks he will be leaving tomorrow as that is when his mom can get him, discussed that he is still at the beginning of his taper and that we can evaluate tomorrow but if he decides to leave it may end up needing to be AMA, he verbalizes understanding 02/08/2025: Became agitated overnight and was placed in 4-point restraints of this morning which were reaffirmed. Started on Precedex and transferred to the ICU. Will start him on scheduled Librium as well 02/09/2025: Continue with Precedex and Librium as well as a phenobarb taper 02/10/2025: Wean Precedex continue with Librium, he completes phenobarbital afternoon 02/11/2025: He was transferred out of the ICU to [place] [id number] and his Yang was removed. He was able to urinate about 900 cc with no residuals and he requested to be discharged home. He does not want to pursue any kind of inpatient rehab and he wants to only do outpatient stuff that he will set up on his own he states. I discussed with him the possibility of discharge and he expressed understanding of the risks and benefits of going home and request to be discharged home today. Will plan to continue Flomax on discharge given his urinary retention just for a few days and recommend outpatient follow-up. #Tobacco use -02/07: Nicotine patch ordered #Abn LFTs -02/07: AST 122 and ALT 82, down from 168 and 98 yesterday respectively, suspect this is due to alcohol, platelet count 81, yesterday 107 but appears all cell lines dropped proportionately, this is likely also due to chronic alcohol use, would recommend establishing with primary care physician if he has not already have one #Urinary retention – Had about 1000 cc in his bladder – Yang placed was placed for urinary retention while he was delirious, which was removed and he had no residual after about 900 cc of urine – Continue with Flomax on discharge Weight / BMI Weight Weight: 137 lb 12.623 oz Body Mass Index (BMI) 20.9 ABG / Lab / Microbiology Data 02/07/25 04:23 02/07/25 04:23 D/C Instructions Call your doctor if you observe: Fever of 101 or Higher, Shortness of breath, Dizziness, Fainting spells, Swelling in the ankles, Chest pain and Increased palpitations (irregular heartbeat) DC O2, CPAP, BIPAP Needs Home O2 Discharge instructions: No Meaningful Use Info Meaningful Use Meaningful Use Diagnoses (Choose all that apply): None applicable Discharge Plan Admission Admit Date/Time: 02/06/25 10:16 Attending Provider: Sean East Primary Care Provider: RYLIE WATTERS Consulting Providers: Latasha Nye; Sean East; Yariel Beck Discharge Orders/Prescriptions Prescriptions: New tamsulosin 0.4 mg Capsule 0.4 mg PO DAILY@1730 10 Days Qty: 10 0RF Referrals / Follow Up: RYLIE WATTERS [Other] RYLIE WATTERS [Other] Disposition Disposition (needs filled in before D/C Order can be placed): Home, Self Care Charges/Coding Visit Charges Inpatient E&M: 79121 Disch Hosp >30min
== END 2025-02-11 17:56 | disposition home or self-care (01) | DRG 897 ==
LOC: ED 10:13 → MS3 10:42 → ICU 02-08 06:48 → MS3 02-11 12:11
PROVIDERS: Admitting Provider Internal Medicine; Emergency Provider Emergency Medicine; Visit Provider Family Medicine
DX: F10.239 Alcohol dependence with withdrawal, unspecified (principal); F12.90 Cannabis use, unspecified, uncomplicated; F17.210 Nicotine dependence, cigarettes, uncomplicated; Y90.8 Blood alcohol level of 240 mg/100 ml or more; R33.9 Retention of urine, unspecified
CPT/HCPCS: 36415; 80053; 80307; 82077; 82962; 85025; 99283; 99406; A4216